=== PATIENT | male | born 1940 | race Caucasian/White ===

== ENCOUNTER 2020-03-16 08:20 | Outpatient (REF) | payer MEDICARE, OTHER, SELFPAY ==
[2020-03-16 12:07] LABS: INTERNATIONAL NORM RATIO 1.8 (0.9-1.1); Prothrombin Time 21.5 SEC (10.8-13.0)
== END 2020-03-16 08:21 | disposition home or self-care (01) ==
LOC: HO.LHD 08:20
PROVIDERS: Visit Provider Nurse Practitioner Family
DX: Z79.01 Long term (current) use of anticoagulants (principal)
CPT/HCPCS: 36415; 85610

== ENCOUNTER 2020-03-30 08:01 | Outpatient (REF) | payer MEDICARE, OTHER, SELFPAY ==
[2020-03-30 11:37] LABS: INTERNATIONAL NORM RATIO 2.4 (0.9-1.1); Prothrombin Time 29.1 SEC (10.8-13.0)
== END 2020-03-30 08:02 | disposition home or self-care (01) ==
LOC: HO.LHD 08:01
PROVIDERS: Visit Provider Nurse Practitioner Family
DX: Z79.01 Long term (current) use of anticoagulants (principal)
CPT/HCPCS: 36415; 85610

== ENCOUNTER 2020-04-12 06:55 | Outpatient (REF) | payer MEDICARE, MEDICAID, SELFPAY ==
[2020-04-12 10:50] LABS: INTERNATIONAL NORM RATIO 2.5 (0.9-1.1); Prothrombin Time 30.3 SEC (10.8-13.0)
== END 2020-04-12 06:56 | disposition home or self-care (01) ==
LOC: HO.LHD 06:55
PROVIDERS: Visit Provider Nurse Practitioner Family
DX: Z13.89 Encounter for screening for other disorder (principal)
CPT/HCPCS: 36415; 85610

== ENCOUNTER 2020-05-03 | Outpatient (REF) | payer MEDICARE, MEDICAID, OTHER, SELFPAY ==
[2020-05-03 10:56] LABS: Prothrombin Time 24.4 SEC (10.8-13.0)
== END 2020-05-03 00:01 | disposition home or self-care (01) ==
LOC: HO.LHD
PROVIDERS: Visit Provider Nurse Practitioner Family
DX: I48.91 Unspecified atrial fibrillation (principal); Z79.01 Long term (current) use of anticoagulants
CPT/HCPCS: 36415; 85610

== ENCOUNTER 2020-05-24 | Outpatient (REF) | payer MEDICARE, MEDICAID, OTHER, SELFPAY ==
[2020-05-24 10:50] LABS: INTERNATIONAL NORM RATIO 2.7 (0.9-1.1); Prothrombin Time 32.2 SEC (10.8-13.0)
== END 2020-05-24 00:01 | disposition home or self-care (01) ==
LOC: HO.LHD
PROVIDERS: Visit Provider Nurse Practitioner Family
DX: Z79.01 Long term (current) use of anticoagulants (principal)
CPT/HCPCS: 36415; 85610

== ENCOUNTER 2020-06-03 13:32 | Outpatient (REF) | payer MEDICARE, OTHER, SELFPAY | END 2020-06-03 13:33 | disposition home or self-care (01) | LOC: HO.HMGCLDS 13:32 | PROVIDERS: PCP Nurse Practitioner Family; Visit Provider Internal Medicine | DX: Z20.828 Contact with and (suspected) exposure to other viral communicable diseases (principal) | CPT/HCPCS: C9803; U0003 ==

== ENCOUNTER 2020-07-01 23:43 | Inpatient (IN) | payer MEDICARE, OTHER, SELFPAY ==
[2020-07-01 23:53] VITALS: BP 95/59; PULSE 74; RESP 18; TEMP 36.7; O2SAT 93; BMI 31.8
[2020-07-02] VITALS (12 sets, daily range): BP systolic 103–154; BP diastolic 53–80; PULSE 38–75; RESP 16–20; TEMP 36.6–36.9; O2SAT 94–99
--- NOTE | 2020-07-02 00:32 | ED_ITS ---
HPI - Syncope General Chief Complaint: Syncope Stated Complaint: SYNCOPE X3 Time Seen by Provider: 07/01/20 23:44 Source: patient Mode of arrival: EMS Limitations: no limitations History of Present Illness HPI narrative: Comes to emergency room via EMS complaining syncopal/near syncopal episode. Patient states that he was awake the whole time, he had an episode of profuse sweating while he was sitting down, then went up to the bathroom, had a bowel movement, got up from the bathroom and started walking and had another similar episode. Patient states that he felt that he was going to pass out, but did not lose consciousness. Patient denies chest pain or shortness of breath during these episodes. The patient's neighbor states that the patient seemed to be unconscious and shaky, but the patient states that he did not pass out. At this time, patient states that he feels much better. MD complaint: felt faint Related Data Home Medications Medication Instructions Recorded Confirmed albuterol sulfate 90 mcg/actuation 2 puff INHALATION Q6H PRN 04/13/20 04/13/20 aerosol inhaler hydrochlorothiazide 25 mg tablet 25 mg PO DAILY 04/13/20 04/13/20 levalbuterol HCl 0.63 mg/3 mL 0.63 mg INHALATION TID 04/13/20 04/13/20 solution for nebulization levalbuterol tartrate 45 1 puff INHALATION Q6H 04/13/20 04/13/20 mcg/actuation aerosol inhaler metoprolol tartrate 50 mg tablet 25 mg PO DAILY tab 04/13/20 04/13/20 warfarin 2.5 mg tablet 2.5 mg PO Q OTHER DAY 04/13/20 04/13/20 Previous Rx's Medication Instructions Recorded warfarin 2 mg tablet 2 mg PO DAILY 30 Days #30 tab 04/12/20 warfarin 2.5 mg tablet 2.5 mg PO Q OTHER DAY 90 Days #45 04/13/20 tab sildenafil 100 mg tablet 100 mg PO DAILY PRN 30 Days #30 tab 04/27/20 fluticasone furoate 100 1 ea INHALATION DAILY #180 ea 05/10/20 mcg-vilanterol 25 mcg/dose inhalation powder trazodone 100 mg tablet 100 mg PO BEDTIME #30 tab 06/10/20 Allergies Allergy/AdvReac Type Severity Reaction Status Date / Time No Known Allergies Allergy Verified 04/13/20 09:39 [No Known Allergies*] Review of Systems Review of Systems: Constitutional : No Weight loss, No Fever, No Chills, No Night Sweats, No Fatigue, No Malaise ENT/Mouth : No Hearing loss, No Ear Pain, No Nasal Congestion, No Sinus Pain, No Hoarseness, No sore throat, No Rhinorrhea, No Swallowing Difficulty Eyes: No Eye Pain, No Swelling, No Redness, No Foreign Body, No Discharge, No Vision Changes Cardiovascular : No Chest Pain, No SOB, No Dyspnea on Exertion, No Orthopnea, No Edema, No Palpitations Respiratory : No Cough, No Sputum, No Wheezing, No Smoke Exposure, No Dyspnea Gastrointestinal : No Nausea, No Vomiting, No Diarrhea, No Constipation, No abdominal Pain, No Hematochezia, No Melena Genitourinary : no irregular bleeding, No Dysuria, No Urinary Frequency, No Hematuria, No Urinary Incontinence, No Urgency, No Flank Pain, No Urinary Flow Changes, No Hesitancy Musculoskeletal : No joint pain, No Myalgias, No Joint Swelling Skin : No Skin Lesions, No rash Neuro : No Weakness, No Numbness, No Paresthesias, No Loss of Consciousness, complaining of near-syncope with profuse sweating, No Headache Psych : No Anxiety/Panic, No Depression, No SI/HI/AH/VH, No Social Issues, Heme/Lymph: No Bruising, No Bleeding,No Lymphadenopathy Endocrine : No Polyuria, No Polydipsia, No Temperature Intolerance PMFSH Past Medical History Medical History (Updated 07/02/20 @ 03:07 by Paulina Lambert MD) Asthma Atrial fibrillation Chronic a-fib COPD (chronic obstructive pulmonary disease) Elevated blood sugar Erectile dysfunction Fatigue Hearing loss High triglycerides HTN (hypertension) Hyperlipidemia Nonischemic cardiomyopathy Stroke Typical atrial flutter Surgical History History of appendectomy History of tonsillectomy Family History Family History Father Unknown family medical history Mother Unknown family medical history Social History Social History (Updated 04/13/20 @ 09:47 by Lori Arambula [facility]) Alcohol intake: current Alcohol intake frequency: a few times a week Smoking Status: Current some day smoker Tobacco Type: Cigarette Smoked in Last 30 Days: No Advance Directives: Yes Advance Directives on File: Yes Advance Directives Date on File: [birth year]/10/1929 Physical Exam Vital Signs: Vital Signs: Last Vital Signs Temp 98.2 F 07/02/20 01:46 Pulse 75 07/02/20 01:46 Resp 16 07/02/20 01:46 BP 107/68 07/02/20 01:46 Pulse Ox 98 07/02/20 01:47 Body Mass Index 31.8 Course Course Course Narrative: I discussed with the patient that his labs are elevated especially the troponin. Patient is completely asymptomatic, has no dizziness, no shortness of breath, no lightheadedness, orthostatics are negative, no chest pain. Patient was to go home. However, the history of his syncopal episode versus near syncopal episode is unclear. Additionally, patient has atrial fi brillation, patient is at high risk. I discussed with the patient that he should be admitted for observation. I also discussed the patient with our hospitalist, who agrees to admit the patient. At this time, patient is stable, heart rate 60, blood pressure 107/63 MDM - Syncope Lab Data Result diagrams: 07/02/20 00:52 07/02/20 00:52 Labs: Lab Results 07/02/20 07/02/20 07/02/20 Range/Units 00:52 00:52 00:52 WBC 7.5 (4.8-10.8) X10*3/uL RBC 4.65 (4.60-5.80) X10*6/uL Hgb 13.9 L (14.0-18.0) g/dl Hct 42.4 (42-52) % MCV 91.2 (80-98) fL MCH 29.9 (27.0-33.0) pg MCHC 32.8 (31.0-36.0) g/dl RDW 13.7 (11.0-16.0) % Plt Count 158 L (160-400) X10*3/uL MPV 12.5 H (9.4-12.4) fL Immature Gran % (Auto) 0.4 (0.0-0.4) % Neut % (Auto) 78.5 H (45-73) % Lymph % (Auto) 10.6 L (20-40) % [place] % (Auto) 9.7 (2-11) % Eos % (Auto) 0.5 (0-4) % Baso % (Auto) 0.3 (0-2) % Lymph # (Auto) 0.8 L (1.2-4.9) X10*3/uL [place] # (Auto) 0.7 (0.1-1.2) X10*3/uL Eos # (Auto) 0.0 (0.0-0.4) X10*3/uL Baso # (Auto) 0.0 (0.0-0.2) X10*3/uL Abs Immat Gran (auto) 0.03 (0.00-0.03) X10*3/uL Absolute Neuts (auto) 5.9 (2.0-8.3) X10*3/uL Absolute Nucleated RBC 0.000 (0.0-0.012) X10*3/uL Nucleated RBC % (auto) 0.0 (0.0-0.2) /100WBC PT 25.3 H D (10.8-13.0) SEC INR 2.1 H (0.9-1.1) Sodium 140 (135-145) mmol/L Potassium 3.7 (3.3-5.1) mmol/l Chloride 103 (96-108) mmol/L Carbon Dioxide 23 (22-29) mmol/L Anion Gap 18 (12-20) BUN 26 H (9-16) mg/dL Creatinine 1.44 H (0.5-1.4) mg/dL Estim Creat Clear Calc 43.5 Estimated GFR 47 Random Glucose 165 H (60-115) mg/dL Calcium 8.5 (8.4-10.2) mg/dL Troponin I High Sens (<3.5-35.0) ng/L B-Natriuretic Peptide (<100) pg/mL 07/02/20 Range/Units 00:52 WBC (4.8-10.8) X10*3/uL RBC (4.60-5.80) X10*6/uL Hgb (14.0-18.0) g/dl Hct (42-52) % MCV (80-98) fL MCH (27.0-33.0) pg MCHC (31.0-36.0) g/dl RDW (11.0-16.0) % Plt Count (160-400) X10*3/uL MPV (9.4-12.4) fL Immature Gran % (Auto) (0.0-0.4) % Neut % (Auto) (45-73) % Lymph % (Auto) (20-40) % [place] % (Auto) (2-11) % Eos % (Auto) (0-4) % Baso % (Auto) (0-2) % Lymph # (Auto) (1.2-4.9) X10*3/uL [place] # (Auto) (0.1-1.2) X10*3/uL Eos # (Auto) (0.0-0.4) X10*3/uL Baso # (Auto) (0.0-0.2) X10*3/uL Abs Immat Gran (auto) (0.00-0.03) X10*3/uL Absolute Neuts (auto) (2.0-8.3) X10*3/uL Absolute Nucleated RBC (0.0-0.012) X10*3/uL Nucleated RBC % (auto) (0.0-0.2) /100WBC PT (10.8-13.0) SEC INR (0.9-1.1) Sodium (135-145) mmol/L Potassium (3.3-5.1) mmol/l Chloride (96-108) mmol/L Carbon Dioxide (22-29) mmol/L Anion Gap (12-20) BUN (9-16) mg/dL Creatinine (0.5-1.4) mg/dL Estim Creat Clear Calc Estimated GFR Random Glucose (60-115) mg/dL Calcium (8.4-10.2) mg/dL Troponin I High Sens 939.2 H (<3.5-35.0) ng/L B-Natriuretic Peptide 209 H (<100) pg/mL ECG Data Attestation: I personally reviewed and interpreted this ECG as follows: (Sinus rhythm, 1st AV degree block, heart rate 74, no ST segment depressions) Discharge Plan Discharge Clinical Impression: Syncopal episodes, Elevated troponin Patient Disposition: Admitted As Inpatient Prescriptions: No Action warfarin 2 mg tablet 2 mg PO DAILY 30 Days Qty: 30 RF: 2 sildenafil 100 mg tablet 100 mg PO DAILY PRN (Reason: sexual activity) 30 Days Qty: 30 RF: 1 fluticasone furoate-vilanterol [Breo Ellipta] 100-25 mcg/dose blister with device 1 ea inhalation DAILY Qty: 180 RF: 5 trazodone 100 mg tablet 100 mg PO BEDTIME Qty: 30 RF: 2 metoprolol tartrate 50 mg tablet 25 mg PO DAILY RF: 0 warfarin 2.5 mg tablet 2.5 mg PO Q OTHER DAY RF: 0 levalbuterol HCl [Xopenex] 0.63 mg/3 mL solution for nebulization 0.63 mg inhalation TID RF: 0 hydrochlorothiazide 25 mg tablet 25 mg PO DAILY RF: 0 levalbuterol tartrate [Xopenex HFA] 45 mcg/actuation HFA aerosol inhaler 1 puff inhalation Q6H RF: 0 albuterol sulfate [ProAir HFA] 90 mcg/actuation HFA aerosol inhaler 2 puff inhalation Q6H PRNRF: 0 warfarin 2.5 mg tablet 2.5 mg PO Q OTHER DAY 90 Days Qty: 45 RF: 2
[2020-07-02 00:58] LABS: MANUAL DIFF FLAG NO
[2020-07-02 01:01] LABS: Basophils Percent Auto 0.3 % (0-2); Eosinophils Percent Auto 0.5 % (0-4); Hematocrit 42.4 % (42-52); Hemoglobin 13.9 g/dl (14.0-18.0); Imm Gran Abs Auto 0.03 X10*3/uL (0.00-0.03); Imm Gran Pct Auto 0.4 % (0.0-0.4); Lymphocytes Absolute Auto 0.8 X10*3/uL (1.2-4.9); Lymphocytes Percent Auto 10.6 % (20-40); Mean Corpuscular HGB Conc 32.8 g/dl (31.0-36.0); Mean Corpuscular Hemoglobin 29.9 pg (27.0-33.0); Mean Corpuscular Volume 91.2 fL (80-98); Mean Platelet Volume 12.5 fL (9.4-12.4); Monocytes Absolute Auto 0.7 X10*3/uL (0.1-1.2); Monocytes Percent Auto 9.7 % (2-11); Neutrophils Absolute Auto 5.9 X10*3/uL (2.0-8.3); Neutrophils Percent Auto 78.5 % (45-73); Platelet Count 158 X10*3/uL (160-400); Red Blood Count 4.65 X10*6/uL (4.60-5.80); Red Cell Distribution Width 13.7 % (11.0-16.0); White Blood Count 7.5 X10*3/uL (4.8-10.8)
[2020-07-02 01:09] LABS: INTERNATIONAL NORM RATIO 2.1 (0.9-1.1); Prothrombin Time 25.3 SEC (10.8-13.0)
[2020-07-02 01:24] LABS: Anion Gap 18 (12-20); Blood Urea Nitrogen 26 mg/dL (9-16); Calcium 8.5 mg/dL (8.4-10.2); Carbon Dioxide 23 mmol/L (22-29); Chloride 103 mmol/L (96-108); Creatinine Clr Calc Pharmacy 43.5; Estimated Glomerular Filt Rate 47; Glucose Random 165 mg/dL (60-115); Potassium 3.7 mmol/l (3.3-5.1); Sodium 140 mmol/L (135-145)
[2020-07-02] MEDS: 0.9 % Sodium Chloride 1,000 ML 999 ML IVCONT (01:33)
[2020-07-02 01:45] LABS: B Type Natriuretic Peptide 209 pg/mL (<100); Troponin-I High Sensitivity 939.2 ng/L (<3.5-35.0)
--- NOTE | 2020-07-02 05:04 | CA_ITS ---
Transthoracic Echocardiogram Patient (Last, First, Middle): Eder Farah, Gender: Male Date of : 1940 Age: 79 Procedure Date: 07/02/2020 Procedure Type: Transthoracic Echocardiogram Location: ER Height: 167.64 cm Weight: 89.36 kg BSA: 1.99 m2 Heart Rate: bpm BP: 111 / 68 mmHg Medical Case Manager: Referring MD: Herman Pruett MD Symptoms: Syncope Study Quality: Fair ECG Rhythm: Atrial flutter Conclusions: - The left ventricular systolic function is severely decreased. The visually estimated ejection fraction is between 10-15%. - Severe biatrial enlargement. - There is mild mitral valve regurgitation. - There is mild to moderate tricuspid valve regurgitation. - Moderate pulmonary hypertension is present. Findings Left Ventricle Normal left ventricular cavity size. There is normal left ventricular wall thickness. The left ventricular systolic function is severely decreased. The visually estimated ejection fraction is between 10-15%. E/E prime ratio is >15, consistent with elevated filling pressures. Evidence suggests grade III (severe) diastolic dysfunction. Right Ventricle Normal right ventricular cavity size. There is mildly decreased right ventricular systolic function. Atria Severe biatrial enlargement. Aortic Valve There is mild calcification of the aortic valve. There is no aortic valve stenosis. There is mild aortic valve regurgitation. Mitral Valve The mitral valve appears normal. There is mild mitral valve regurgitation. There is no mitral valve stenosis. Pulmonic Valve The pulmonic valve was not well visualized. Tricuspid Valve Normal tricuspid valve structure. There is mild to moderate tricuspid valve regurgitation. The right ventricular systolic pressure is 50 mmHg. Moderate pulmonary hypertension is present. Great Vessels The asc aorta is normal in size. Venous The inferior vena cava is mildly dilated and collapses greater than 50% with inspiration. Pericardium/Pleural There is no evidence of pericardial effusion. Prior Study Comparison Changes noted compared to prior study dated: 06/13/2018. LVEF further diminished. Measurements 2D Linear Measurements IVSd: 0.86 0.6-0.9/0.6-1.0 cm LVIDd: 5.27 3.9-5.3/4.2-5.9 cm LVIDd Index: 2.65 2.4-3.2/2.2-3.1 cm/m2 LVIDs: 4.82 2.0-3.6 cm LVPWd: 1.12 0.7-1.1 cm Ao Root: 3.00 2.1-3.5 cm LA Diam: 5.50 2.7-3.8/3.0-4.0 cm LAIDs Index: 2.76 1.5-2.3 cm/m2 LV Mass: 244.10 67-162/88-224 g LV Mass Index: 122.67 43-95/49-115 g/m2 LVOT Diam: 2.20 3.0+(-)1.3 cm 2D Systolic Function EF 4C: 18.60 >55% EF 2C: 9.16 >55% EF BiP: 14.00 >55% Mitral Valve MV Pk E: 1.11 MV Decel Time: 153.00 E'Lateral: 7.93 E'Medial: 4.84 E/E' Med: 22.90 E/E' Lat: 14.00 PHT: 45.00 MVA PHT: 4.89 Decel Toole: 7.26 Aortic Valve AoV Pk Hieu: 1.56 AoV Mn Hieu: 1.12 AoV VTI: 0.40 AoV Pk Grad: 10.00 Aov Mn Grad: 6.00 QUAN Cont.VTI: 1.61 LVOT LVOT Pk Hieu: 0.72 LVOT Mn Hieu: 0.51 LVOT VTI: 0.17 LVOT Pk Grad: 2.00 LVOT Mn Grad: 1.00 LVOT Diam: 2.20 LVOT Area: 3.80 Diastolic Function MV Pk E: 1.11 E'Medial: 4.84 E/E' Med: 22.90 E' Laterial: 7.93 E/E' Lat: 14.00 Tricuspid Valve TR Pk Hieu: 3.24 TR Pk Grad: 42.00 RA Press: 8.00 RVSP: 50.00 Great Vessels Aorta Ao Root-2D: 3.00 2.0-3.7 cm Pulmonary Valve PV Pk Hieu: 0.84 Peak PV Grad: 3.00 Updated in Other Vendor System with Status of Final Benny Castro MD electronically signed on 07/02/2020 1:33:16 PM with status of Final
--- NOTE | 2020-07-02 05:05 | PM.IMHP ---
History of Present Illness Date of Service: 07/02/20 Chief Complaint: Syncope This is a 80-year-old male with past medical history of AFib on Coumadin, COPD, diabetes, HTN, HLD, nonischemic cardiomyopathy, CVA, asthma, who presents to the hospital with complaints of multiple dizzy spells. Patient reports that he was having dinner with his friend, they were saying goodbye and as he was seeing a by to her he started having dizzy spells and he fell backwards, he was very nauseous and diaphoretic. He reports that his friend noted him to have lost consciousness for a couple of seconds although he is not sure if he did. He reports no vomiting, no palpitations, no chest pain. He has not been short of breath or has had any cough. Patient reports a syncopal episode about 5 months ago but reports that this time was worse associated with significant nausea and diaphoresis which was not present in the past. He has a history of COPD but reports a chronic cough and shortness of breath that has not worsened. Patient also reports that he was drinking prior to the episode occurring and slightly excessively as compared to his usual drinking habits He denies having any urinary symptoms, no headache, no change in vision, no UE lower extremity edema. No orthopnea or PND On arrival to the ED patient hemodynamically stable with temp of 98.0?, heart rate of 74, respiratory rate of 18, blood pressure of 95/59, satting 93% on room air. Labs are significant for WBC count of 7.5, hemoglobin of 13.9, platelet count 158, PT of 25.3, INR of 2.1, sodium of 140, potassium 3.7, BUN of 26, creatinine of 1.44 (last creatinine from 01/28 of 1.52) , high sensitivity troponin of 939, and BNP of 209 Patient will be admitted for further evaluation Past medical history: AFib on Coumadin, COPD, hyperlipidemia, hypertension, nonischemic cardiomyopathy, CVA, asthma Past surgical history: Appendectomy, tonsillectomy Family history: Was adopted Social history: Comes from home, smokes about 1-2 cigarettes a day, reports social drinking, denies any illicit drugs Review of Systems Review of Systems: Yes all other systems are reviewed and are negative [facility] Medical History (Updated 07/02/20 @ 05:13 by Herman Pruett MD) Asthma Atrial fibrillation Chronic a-fib COPD (chronic obstructive pulmonary disease) Elevated blood sugar Erectile dysfunction Fatigue Hearing loss High triglycerides HTN (hypertension) Hyperlipidemia Nonischemic cardiomyopathy Stroke Typical atrial flutter Family History (Reviewed 04/13/20 @ 09:40 by Dagoberto Childs, [facility]) Father Unknown family medical history Mother Unknown family medical history Surgical History History of appendectomy History of tonsillectomy Social History (Updated 04/13/20 @ 09:47 by Lori Arambula [facility]) Alcohol intake: current Alcohol intake frequency: a few times a week Smoking Status: Current some day smoker Tobacco Type: Cigarette Smoked in Last 30 Days: No Advance Directives: Yes Advance Directives on File: Yes Advance Directives Date on File: 05/10/1929 Meds Allergies Allergy/AdvReac Type Severity Reaction Status Date / Time No Known Allergies Allergy Verified 04/13/20 09:39 [No Known Allergies*] Home Medications Medication Instructions Recorded Confirmed Type albuterol sulfate 90 mcg/actuation 2 puff INHALATION Q6H PRN 04/13/20 07/02/20 History aerosol inhaler levalbuterol tartrate 45 1 puff INHALATION Q6H 04/13/20 04/13/20 History mcg/actuation aerosol inhaler metoprolol tartrate 50 mg tablet 50 mg PO DAILY tab 04/13/20 07/02/20 History atorvastatin 40 mg PO DAILY 07/02/20 07/02/20 History furosemide 20 mg PO DIRECTED 07/02/20 07/02/20 History Physical Exam Vital Signs and Narrative: Vital Signs: Last Vital Signs Temp 98.2 F 07/02/20 01:46 Pulse 75 07/02/20 01:46 Resp 16 07/02/20 01:46 BP 107/68 07/02/20 01:46 Pulse Ox 98 07/02/20 01:47 Body Mass Index 31.8 Const: General: cooperative and no acute distress Orientation/consciousness: patient oriented x3 HENMT: Other: Hard of hearing Eyes: General: appearance normal, both eyes and all related structures Pupils: Equal, round and reactive pupils present Resp: Effort & Inspection: normal respiratory effort and able to speak in complete sentences Cardio: Rate: regular rate Rhythm: regular rhythm GI: Palpation (GI): Soft to palpation Auscultation: normal bowel sounds Skin: General skin exam: no rashes or lesions noted Neuro: General: patient oriented x3 Cranial nerves: Yes Equal, round and reactive pupils present Cognition (Neuro): normal cognition Extrem: General: Yes normal to inspection and Yes no pedal edema Results Labs CBC and Chem 7: 07/02/20 00:52 07/02/20 00:52 Labs: Laboratory Results - last 24 hr 07/02/20 07/02/20 07/02/20 00:52 00:52 00:52 MCV 91.2 MCH 29.9 MCHC 32.8 RDW 13.7 Plt Count 158 L MPV 12.5 H Immature Gran % (Auto) 0.4 Neut % (Auto) 78.5 H Lymph % (Auto) 10.6 L [place] % (Auto) 9.7 Eos % (Auto) 0.5 Baso % (Auto) 0.3 Lymph # (Auto) 0.8 L [place] # (Auto) 0.7 Eos # (Auto) 0.0 Baso # (Auto) 0.0 Abs Immat Gran (auto) 0.03 Absolute Neuts (auto) 5.9 Absolute Nucleated RBC 0.000 Nucleated RBC % (auto) 0.0 PT 25.3 H D INR 2.1 H Anion Gap 18 Estim Creat Clear Calc 43.5 Estimated GFR 47 Random Glucose 165 H Calcium 8.5 Troponin I High Sens B-Natriuretic Peptide 07/02/20 00:52 MCV MCH MCHC RDW Plt Count MPV Immature Gran % (Auto) Neut % (Auto) Lymph % (Auto) [place] % (Auto) Eos % (Auto) Baso % (Auto) Lymph # (Auto) [place] # (Auto) Eos # (Auto) Baso # (Auto) Abs Immat Gran (auto) Absolute Neuts (auto) Absolute Nucleated RBC Nucleated RBC % (auto) PT INR Anion Gap Estim Creat Clear Calc Estimated GFR Random Glucose Calcium Troponin I High Sens 939.2 H B-Natriuretic Peptide 209 H Assessment and Plan (1) Syncopal episodes: Status: Acute (2) Elevated troponin: Status: Acute (3) HTN (hypertension): Status: Acute (4) Chronic a-fib: Status: Inactive This is a 80-year-old male with history of AFib on Coumadin who presents to the hospital with complaints of dizzy spell as well as possible syncopal episode. # syncope - possibly cardiogenic versus vasovagal vs neurogenic less likely versus secondary to alcohol use - patient has a history of AFib, reports diaphoresis and nausea prior to syncope - he is not sure if he syncopized although reports that his friend who was visiting him did report an noticed him to be unconscious for few seconds -patient was drinking this evening a little more than usual - his orthostatic vitals have been negative in the ED - no hypoxia, and by the time he arrived to the ED was in normal sinus with no tachycardia, and no AFib Plan: - will admit to telemetry - obtain echocardiogram - consult cardiolog # elevated troponin - denies any chest pain - has no evidence of ACS on EKG Plan: - will order a 2nd troponin - cardiology consulted - echocardiogram - already on Coumadin with therapeutic INR - continue Coumadin # hypertension - stable - continue home meds # atrial fibrillation - continue metoprolol and Coumadin - therapeutic INR of 2.1 - PT INR daily # COPD - no evidence of exacerbation DVT prophylaxis: Coumadin
[2020-07-02 06:46] LABS: INTERNATIONAL NORM RATIO 2.1 (0.9-1.1); Prothrombin Time 25.4 SEC (10.8-13.0)
[2020-07-02 06:53] LABS: COVID-19 Test Negative (Negative); IDNOW Serial# 9DD0AD1C
[2020-07-02 07:31] LABS: Troponin-I High Sensitivity 7428.7 ng/L (<3.5-35.0)
[2020-07-02] MEDS: 0.9 % Sodium Chloride Flush 3 ML SYRINGE IVFLUSH ×3 (07:56→20:24)
--- NOTE | 2020-07-02 07:56 | PC.NURSE ---
report taken from Lisa ART. pt resting on stretcher. breakfast provided. pt repeat trop increased. pt denies chest pain or further dizziness. Laura RN sent text to hospitalist for inform of levels. dr Santiago at bedside and spoke with pt. repeat EKG done at bedside. pt informed of above. pt asking RN to go home. explained to pt the importance of staying in hospital and waiting to see department store salesperson. pt agreeable. waiting for room for admission.
--- NOTE | 2020-07-02 08:00 | ECG_ITS ---
Test Reason : GENERAL MEDICAL Blood Pressure : / mmHG Vent. Rate : 055 BPM Atrial Rate : 234 BPM P-R Int : 000 ms QRS Dur : 098 ms QT Int : 446 ms P-R-T Axes : 000 -53 -44 degrees QTc Int : 426 ms Atrial flutter with slow ventricular rate Low voltage QRS Septal infarct (cited on or before 14-JAN-2020) Inferior infarct , age undetermined Abnormal ECG When compared with ECG of 02-JUL-2020 00:05, No significant changes seen Referred By: Nacho Santiago Electronically Signed By:MELVIN BURGESS
[2020-07-02] MEDS: Aspirin 81 MG TAB.CHEW 324 MG PO (08:06)
[2020-07-02] MEDS: Warfarin Sodium 2 MG TABLET PO (09:12)
[2020-07-02] MEDS: Metoprolol Tartrate 50 MG TABLET PO (09:12)
[2020-07-02] MEDS: Atorvastatin Calcium 80 MG TABLET PO (09:12)
--- NOTE | 2020-07-02 09:16 | PC.NURSE ---
CALL TO [facility] TO GIVE REPORT. RN TO CALL BACK TO RECIEVE REPORT.
--- NOTE | 2020-07-02 11:29 | P.CONCA_ITS ---
History of Present Illness History of Present Illness Date of Service: 07/02/20 Consult reason: myocardial infarction Chief complaint: PRE-SYNCOPE EPISODE Narrative: This is a cardiology consultation regarding elevated troponins. Patient follows up with Dr. Mccullough in our office. He carries a history of nonischemic cardiomyopathy, atrial fibrillation. He apparently had a dizzy episode when he almost fell backwards. Then also felt nauseous and diaphoretic. H&P states no chest tightness, but he states that he did feel an episode of chest tightness as well at that time. Then he present to the hospital and found to have elevated troponins. Today however, he states that he feels well and does not have any complaints at all. Review of Systems Review of Systems: Yes all other systems are reviewed and are negative Cardiovascular: Cardiovascular: Reports as per HPI, Reports no additional cardiovascular complaints, Denies acrocyanosis, Denies cool extremities, Denies painful fingertips, Reports chest pain, Denies chest pain at rest, Denies diaphoresis, Denies syncope, Denies irregular heart rhythm, Denies claudication, Denies leg edema, Reports lightheadedness, Denies palpitations and Denies dyspnea Respiratory: Respiratory: Denies dyspnea Neurologic: Denies syncope Endocrine: Endocrine: Denies palpitations [facility] Past Medical History Medical History (Updated 07/02/20 @ 11:38 by Benny Castro MD) Asthma Atherosclerotic cardiovascular disease Atrial fibrillation Chronic a-fib COPD (chronic obstructive pulmonary disease) Elevated blood sugar Erectile dysfunction Fatigue Hearing loss High triglycerides HTN (hypertension) Hyperlipidemia Nonischemic cardiomyopathy Stroke Typical atrial flutter Family History Family History Father Unknown family medical history Mother Unknown family medical history Surgical History Surgical History History of appendectomy History of tonsillectomy Social History Social History (Updated 04/13/20 @ 09:47 by Lori Arambula [facility]) Housing: Assisted Living Facility Do you presently have visiting nurse or other home services: No Alcohol intake: current Alcohol intake frequency: a few times a week Smoking Status: Former smoker Tobacco Type: Cigarette Smoked in Last 30 Days: Yes Patient Interested in Nicotine Replacement: Yes Patient Given Instructions on How to Stop Smoking: Yes Date Education Initiated: 07/02/20 Second Hand Smoke Exposure: No Use of substances other than those prescribed or required for medical reasons: No Currently Displaying Signs/Symptoms of Drug Intoxication Withdrawal: No Have you been hit, kicked, punched, or otherwise hurt by someone within the past year? If so, by whom?: No Do you feel safe in your current relationship?: No Is there a partner from a previous relationship who is making you feel unsafe now?: No Are you made to feel afraid or neglected: No Advance Directives: Yes Advance Directives on File: Yes Advance Directives Date on File: 05/10/1929 Do you have thoughts of harming others: None Do you have a plan to hurt others: No Plan Recently lost weight without trying: No Meds Allergies Allergy/AdvReac Type Severity Reaction Status Date / Time No Known Allergies Allergy Verified 04/13/20 09:39 [No Known Allergies*] Home Medications Medication Instructions Recorded Confirmed Type albuterol sulfate 90 mcg/actuation 2 puff INHALATION Q6H PRN 04/13/20 07/02/20 History aerosol inhaler metoprolol tartrate 50 mg tablet 50 mg PO DAILY tab 04/13/20 07/02/20 History atorvastatin 40 mg PO DAILY 07/02/20 07/02/20 History furosemide 20 mg PO Q2D 07/02/20 07/02/20 History furosemide 40 mg PO Q2D 07/02/20 07/02/20 History lisinopril 5 mg PO DAILY 07/02/20 07/02/20 History trazodone 100 mg PO BEDTIME PRN 07/02/20 07/02/20 History warfarin 2 mg PO Q2D 07/02/20 07/02/20 History warfarin 2.5 mg PO Q2D 07/02/20 07/02/20 History Physical Exam Vital Signs: Vital Signs: Last Vital Signs Temp 97.8 F 07/02/20 11:04 Pulse 56 07/02/20 11:04 Resp 20 07/02/20 11:04 BP 154/75 H 07/02/20 11:04 Pulse Ox 96 07/02/20 11:04 Body Mass Index 31.8 Const: General: cooperative, comfortable and no acute distress Orientation/consciousness: patient oriented x3 HENMT: Other: Unremarkable Neck: Neck: Yes normal visual inspection Chest: Chest palpation & inspection: normal inspection of the chest Resp: Auscultation: clear to auscultation bilaterally, no crackles and no wheezes Cardio: Jugular venous distension: no JVD Palpation: normal PMI Heart sounds: S1 normal heart sound present, S2 normal heart sound present, no gallops, no murmurs and no rubs GI: Palpation (GI): Soft to palpation Back/Spine/Pelvis: Other: unremarkable Skin: General skin exam: no rashes or lesions noted Neuro: General: patient oriented x3 Extrem: General: Yes no clubbing, cyanosis or edema Psych: Mental Status: mental status grossly normal Results Labs and Meds Result diagrams: 07/02/20 00:52 07/02/20 00:52 Lab results: Laboratory Results - last 24 hr 07/02/20 07/02/20 07/02/20 00:52 00:52 00:52 WBC 7.5 RBC 4.65 Hgb 13.9 L Hct 42.4 MCV 91.2 MCH 29.9 MCHC 32.8 RDW 13.7 Plt Count 158 L MPV 12.5 H Immature Gran % (Auto) 0.4 Neut % (Auto) 78.5 H Lymph % (Auto) 10.6 L [place] % (Auto) 9.7 Eos % (Auto) 0.5 Baso % (Auto) 0.3 Lymph # (Auto) 0.8 L [place] # (Auto) 0.7 Eos # (Auto) 0.0 Baso # (Auto) 0.0 Abs Immat Gran (auto) 0.03 Absolute Neuts (auto) 5.9 Absolute Nucleated RBC 0.000 Nucleated RBC % (auto) 0.0 PT 25.3 H D INR 2.1 H APTT Sodium 140 Potassium 3.7 Chloride 103 Carbon Dioxide 23 Anion Gap 18 BUN 26 H Creatinine 1.44 H Estim Creat Clear Calc 43.5 Estimated GFR 47 Random Glucose 165 H Calcium 8.5 Troponin I High Sens B-Natriuretic Peptide COVID-19 ([facility]) COVID-19 Clin Com 07/02/20 07/02/20 07/02/20 00:52 06:15 06:15 WBC RBC Hgb Hct MCV MCH MCHC RDW Plt Count MPV Immature Gran % (Auto) Neut % (Auto) Lymph % (Auto) [place] % (Auto) Eos % (Auto) Baso % (Auto) Lymph # (Auto) [place] # (Auto) Eos # (Auto) Baso # (Auto) Abs Immat Gran (auto) Absolute Neuts (auto) Absolute Nucleated RBC Nucleated RBC % (auto) PT 25.4 H INR 2.1 H APTT 37.0 Sodium Potassium Chloride Carbon Dioxide Anion Gap BUN Creatinine Estim Creat Clear Calc Estimated GFR Random Glucose Calcium Troponin I High Sens 939.2 H B-Natriuretic Peptide 209 H COVID-19 ([facility]) COVID-19 Clin Com 07/02/20 07/02/20 06:15 06:29 WBC RBC Hgb Hct MCV MCH MCHC RDW Plt Count MPV Immature Gran % (Auto) Neut % (Auto) Lymph % (Auto) [place] % (Auto) Eos % (Auto) Baso % (Auto) Lymph # (Auto) [place] # (Auto) Eos # (Auto) Baso # (Auto) Abs Immat Gran (auto) Absolute Neuts (auto) Absolute Nucleated RBC Nucleated RBC % (auto) PT INR APTT Sodium Potassium Chloride Carbon Dioxide Anion Gap BUN Creatinine Estim Creat Clear Calc Estimated GFR Random Glucose Calcium Troponin I High Sens 7428.7 H D B-Natriuretic Peptide COVID-19 ([facility]) Negative COVID-19 Clin Com See Note ECG Attestation: I personally reviewed and interpreted this ECG as follows: Interpretation: EKG shows atrial flutter with a rate of 74/Min; left anterior fascicular block; cannot exclude old anterior infarct or inferior infarct Assessment and Plan (1) NSTEMI (non-ST elevated myocardial infarction): Status: Acute (2) Atherosclerotic cardiovascular disease: Status: Acute (3) Nonischemic cardiomyopathy: Status: Inactive EKG shows atrial flutter with controlled rate. Last echocardiogram from 2019 with LVEF 20-25%. Repeat echocardiogram getting done today. Last cardiac catheterization for 2019 shows only mild luminal irregularities in the left main; proximal LAD 50% stenosis but otherwise unremarkable. First set of troponin 939; repeat is 7428. Will discuss with his primary vacuum caster .
--- NOTE | 2020-07-02 13:02 | MHC.CM.PN ---
spoke with pt who confirms that he is active with [facility] who provides homemkaer servceis for pt he will need a ride home when he is dcd
[2020-07-02] MEDS: traZODone HCL 100 MG TABLET PO (20:24)
[2020-07-03] VITALS (11 sets, daily range): BP systolic 106–180; BP diastolic 66–79; PULSE 37–77; RESP 14–20; TEMP 36.1–36.7; O2SAT 93–98
--- NOTE | 2020-07-03 | ECG_ITS ---
Test Reason : LOW HR Blood Pressure : / mmHG Vent. Rate : 054 BPM Atrial Rate : 227 BPM P-R Int : 000 ms QRS Dur : 098 ms QT Int : 508 ms P-R-T Axes : 242 -50 -19 degrees QTc Int : 481 ms Atrial flutter with variable A-V block Low voltage QRS Left anterior fascicular block Cannot rule out Anterior infarct , age undetermined Abnormal ECG No significant changes when compared with the previous EKG of jul 02, 2020 Referred By: Herman Pruett Electronically Signed By:MELVIN BURGESS
--- NOTE | 2020-07-03 00:13 | P.EN_ITS ---
Event Note Date of Service: 07/03/20 Event Note: Pt bradycardi w HR in the 30s while sleeping. Asymptomatic. will o btain EKG, Pt on lopressor 50 mg daily, will reduce to 25 mg and hold AM dose.
--- NOTE | 2020-07-03 00:30 | PC.NURSE ---
Pt HR dropping into 30s frequently then back into 50s/60s sustaining. Had a 3.4 seconds pause on monitor. Pt assessed, asymptomatic. Notified Dr. Pruett. EKG ordered.
[2020-07-03 06:32] LABS: Hemoglobin 13.6 g/dl (14.0-18.0); Imm Gran Abs Auto 0.02 X10*3/uL (0.00-0.03); Imm Gran Pct Auto 0.3 % (0.0-0.4); PLT ABN DIST 1; Platelet Count 141 X10*3/uL (160-400); SCAN SMEAR FLAG 1
[2020-07-03 06:34] LABS: Basophils Percent Auto 0.3 % (0-2); Eosinophils Absolute Auto 0.1 X10*3/uL (0.0-0.4); Eosinophils Percent Auto 1.9 % (0-4); Hematocrit 42.4 % (42-52); Lymphocytes Absolute Auto 1.1 X10*3/uL (1.2-4.9); Lymphocytes Percent Auto 14.8 % (20-40); Mean Corpuscular HGB Conc 32.1 g/dl (31.0-36.0); Mean Corpuscular Hemoglobin 29.8 pg (27.0-33.0); Mean Platelet Volume 13.5 fL (9.4-12.4); Monocytes Absolute Auto 0.7 X10*3/uL (0.1-1.2); Monocytes Percent Auto 9.6 % (2-11); Neutrophils Absolute Auto 5.4 X10*3/uL (2.0-8.3); Neutrophils Percent Auto 73.1 % (45-73); Red Blood Count 4.56 X10*6/uL (4.60-5.80); Red Cell Distribution Width 14.2 % (11.0-16.0); White Blood Count 7.4 X10*3/uL (4.8-10.8)
[2020-07-03 06:37] LABS: MANUAL DIFF FLAG NO
[2020-07-03 07:02] LABS: Anion Gap 12 (12-20); Blood Urea Nitrogen 23 mg/dL (9-16); Calcium 8.1 mg/dL (8.4-10.2); Carbon Dioxide 24 mmol/L (22-29); Chloride 108 mmol/L (96-108); Creatinine Clr Calc Pharmacy 63.9; Estimated Glomerular Filt Rate > 60; Glucose Fasting 121 mg/dL (60-99); Potassium 4.4 mmol/l (3.3-5.1); Sodium 140 mmol/L (135-145); Troponin-I High Sensitivity 2746.1 ng/L (<3.5-35.0)
[2020-07-03] MEDS: 0.9 % Sodium Chloride Flush 3 ML SYRINGE IVFLUSH ×2 (08:12→17:18)
[2020-07-03 09:20] LABS: INTERNATIONAL NORM RATIO 2.3 (0.9-1.1)
[2020-07-03] MEDS: Atorvastatin Calcium 80 MG TABLET PO (09:50)
[2020-07-03] MEDS: Fluticasone/Vilanterol 100/25 BLST.W.DEV 1 PUFF INHALE (09:50)
--- NOTE | 2020-07-03 11:16 | PM.DS ---
DS: Providers Provider Date of Service: 07/03/20 Date of admission: 07/02/20 05:04 Primary care physician: Unknown Physician Consults: 07/02/20 05:04 Consult to Cardiology Routine Consulting Provider: Benny Castro Reason for consultation: elevated trop, with pre-syncopal episodes ( possible syncope) Has provider been notified: No DS: Diagnosis Discharge Diagnosis (1) NSTEMI (non-ST elevated myocardial infarction): Status: Acute (2) Atherosclerotic cardiovascular disease: Status: Acute (3) Nonischemic cardiomyopathy: Status: Inactive DS: Medications Discharge Medications Home Medications: Home Medications Medication Instructions Recorded Confirmed albuterol sulfate 90 mcg/actuation 2 puff INHALATION Q6H PRN 04/13/20 07/02/20 aerosol inhaler metoprolol tartrate 50 mg tablet 50 mg PO DAILY tab 04/13/20 07/02/20 atorvastatin 40 mg PO DAILY 07/02/20 07/02/20 furosemide 20 mg PO Q2D 07/02/20 07/02/20 furosemide 40 mg PO Q2D 07/02/20 07/02/20 lisinopril 5 mg PO DAILY 07/02/20 07/02/20 trazodone 100 mg PO BEDTIME PRN 07/02/20 07/02/20 warfarin 2 mg PO Q2D 07/02/20 07/02/20 warfarin 2.5 mg PO Q2D 07/02/20 07/02/20 Previous Rx's Medication Instructions Recorded fluticasone furoate 100 1 ea INHALATION DAILY #180 ea 05/10/20 mcg-vilanterol 25 mcg/dose inhalation powder DS: Summary Hospital Course Hospital Course: Patient was admitted for syncope. Found to have elevated troponin of about 7000. Denies any chest pain or shortness of breath. Echo showed an EF of 10-20%. Previous cardiac catheterization from 2019 showed nonobstructive coronary disease. Likely nonischemic cardiomyopathy. Telemetry showed a flutter, had 3.5 second pause overnight. Cause of syncope likely asystole versus VT. Recommendations from Cardiology were to transfer to [facility] for electrophysiology evaluation and possible AICD implantation. Patient, however, is refusing. He is aware of the risks including . He has decided to leave against medical advice. Time Spent with Patient Time attestation: Total time spent providing and/or coordinating discharge services: Discharge coordination time: Greater than 30 minutes Physical Exam Vital Signs: Vital Signs: Last Vital Signs Temp 98.0 F 07/03/20 07:26 Pulse 53 07/03/20 09:47 Resp 18 07/03/20 07:26 BP 106/66 07/03/20 07:26 Pulse Ox 98 07/03/20 07:26 Body Mass Index 31.8 General: AO X 3, no acute distress Resp: CTA bilateral CVS: S1,S2,RRR GI: soft, non tender, non distended Neuro: motor grossly intact Psych: appropriate affect DS: Data Data Completed and Pending Labs on day of discharge: Laboratory Tests 07/02/20 07/02/20 07/02/20 00:52 00:52 00:52 WBC 7.5 RBC 4.65 Hgb 13.9 L Hct 42.4 MCV 91.2 MCH 29.9 MCHC 32.8 RDW 13.7 Plt Count 158 L MPV 12.5 H Immature Gran % (Auto) 0.4 Neut % (Auto) 78.5 H Lymph % (Auto) 10.6 L [place] % (Auto) 9.7 Eos % (Auto) 0.5 Baso % (Auto) 0.3 Lymph # (Auto) 0.8 L [place] # (Auto) 0.7 Eos # (Auto) 0.0 Baso # (Auto) 0.0 Abs Immat Gran (auto) 0.03 Absolute Neuts (auto) 5.9 Absolute Nucleated RBC 0.000 Nucleated RBC % (auto) 0.0 PT 25.3 H D INR 2.1 H APTT Sodium 140 Potassium 3.7 Chloride 103 Carbon Dioxide 23 Anion Gap 18 BUN 26 H Creatinine 1.44 H Estim Creat Clear Calc 43.5 Estimated GFR 47 Random Glucose 165 H Fasting Glucose Calcium 8.5 Troponin I High Sens B-Natriuretic Peptide COVID-19 ([facility]) COVID-19 Clin Com 07/02/20 07/02/20 07/02/20 00:52 06:15 06:15 WBC RBC Hgb Hct MCV MCH MCHC RDW Plt Count MPV Immature Gran % (Auto) Neut % (Auto) Lymph % (Auto) [place] % (Auto) Eos % (Auto) Baso % (Auto) Lymph # (Auto) [place] # (Auto) Eos # (Auto) Baso # (Auto) Abs Immat Gran (auto) Absolute Neuts (auto) Absolute Nucleated RBC Nucleated RBC % (auto) PT 25.4 H INR 2.1 H APTT 37.0 Sodium Potassium Chloride Carbon Dioxide Anion Gap BUN Creatinine Estim Creat Clear Calc Estimated GFR Random Glucose Fasting Glucose Calcium Troponin I High Sens 939.2 H B-Natriuretic Peptide 209 H COVID-19 ([facility]) COVID-19 Clin Com 07/02/20 07/02/20 07/03/20 06:15 06:29 05:10 WBC Cancelled RBC Cancelled Hgb Cancelled Hct Cancelled MCV Cancelled MCH Cancelled MCHC Cancelled RDW Cancelled Plt Count Cancelled MPV Cancelled Immature Gran % (Auto) Cancelled Neut % (Auto) Cancelled Lymph % (Auto) Cancelled [place] % (Auto) Cancelled Eos % (Auto) Cancelled Baso % (Auto) Cancelled Lymph # (Auto) Cancelled [place] # (Auto) Cancelled Eos # (Auto) Cancelled Baso # (Auto) Cancelled Abs Immat Gran (auto) Cancelled Absolute Neuts (auto) Cancelled Absolute Nucleated RBC Cancelled Nucleated RBC % (auto) Cancelled PT INR APTT Sodium Potassium Chloride Carbon Dioxide Anion Gap BUN Creatinine Estim Creat Clear Calc Estimated GFR Random Glucose Fasting Glucose Calcium Troponin I High Sens 7428.7 H D B-Natriuretic Peptide COVID-19 ([facility]) Negative COVID-19 Clin Com See Note 07/03/20 07/03/20 07/03/20 05:10 05:10 05:10 WBC 7.4 RBC 4.56 L Hgb 13.6 L Hct 42.4 MCV 93.0 MCH 29.8 MCHC 32.1 RDW 14.2 Plt Count 141 L MPV 13.5 H Immature Gran % (Auto) 0.3 Neut % (Auto) 73.1 H Lymph % (Auto) 14.8 L [place] % (Auto) 9.6 Eos % (Auto) 1.9 Baso % (Auto) 0.3 Lymph # (Auto) 1.1 L [place] # (Auto) 0.7 Eos # (Auto) 0.1 Baso # (Auto) 0.0 Abs Immat Gran (auto) 0.02 Absolute Neuts (auto) 5.4 Absolute Nucleated RBC 0.000 Nucleated RBC % (auto) 0.0 PT INR APTT Sodium 140 Potassium 4.4 Chloride 108 Carbon Dioxide 24 Anion Gap 12 BUN 23 H Creatinine 0.98 Estim Creat Clear Calc 63.9 Estimated GFR > 60 Random Glucose TNP Fasting Glucose 121 H Calcium 8.1 L Troponin I High Sens 2746.1 H D B-Natriuretic Peptide COVID-19 ([facility]) COVID-19 [employer] Com 07/03/20 08:53 WBC RBC Hgb Hct MCV MCH MCHC RDW Plt Count MPV Immature Gran % (Auto) Neut % (Auto) Lymph % (Auto) [place] % (Auto) Eos % (Auto) Baso % (Auto) Lymph # (Auto) [place] # (Auto) Eos # (Auto) Baso # (Auto) Abs Immat Gran (auto) Absolute Neuts (auto) Absolute Nucleated RBC Nucleated RBC % (auto) PT 28.0 H INR 2.3 H APTT Sodium Potassium Chloride Carbon Dioxide Anion Gap BUN Creatinine Estim Creat Clear Calc Estimated GFR Random Glucose Fasting Glucose Calcium Troponin I High Sens B-Natriuretic Peptide COVID-19 ([facility]) COVID-19 Clin Com Discharge Plan Discharge Patient Disposition: Left Against Medical Advice Referrals: Physician,Unknown [Primary Care Provider] - Discharge Medications: Continued fluticasone furoate-vilanterol [Breo Ellipta] 100-25 mcg/dose blister with device 1 ea inhalation DAILY Qty: 180 RF: 5 atorvastatin 40 mg tablet 40 mg PO DAILY RF: 0 furosemide 20 mg tablet 20 mg PO Q2D RF: 0 furosemide 20 mg tablet 40 mg PO Q2D RF: 0 warfarin 2.5 mg tablet 2.5 mg PO Q2D RF: 0 trazodone 100 mg tablet 100 mg PO BEDTIME PRN (Reason: Insomnia) RF: 0 warfarin 2 mg tablet 2 mg PO Q2D RF: 0 lisinopril 5 mg tablet 5 mg PO DAILY RF: 0 albuterol sulfate [ProAir HFA] 90 mcg/actuation HFA aerosol inhaler 2 puff inhalation Q6H PRN (Reason: Shortness Of Breath) RF: 0 Changed metoprolol tartrate 50 mg tablet 25 mg PO DAILY Qty: 0 RF: 0 Discharge Orders: Discharge Order (Routine); Ordered 07/03/20 Ordered By: Mayur Jerry Diet: advance to usual diet Activity on Discharge: As tolerated Care Plan Goals: avoid sudden cardiac Health Concerns: cardiomyopathy and likely arrythmias Plan of Treatment: you were recommended to transfer to [facility] directly for EP evaluation as you are at risk for sudden cardiac , please follow up with cardiology as soon as possible, decrease toprol to 25mg daily
--- NOTE | 2020-07-03 11:23 | P.PNCA_ITS ---
Subjective Subjective Date of Service: 07/03/20 Interval history: He states that he feels okay. No specific complaints at this time. Review of Systems Review of Systems Yes all other systems are reviewed and are negative Cardiovascular: Reports as per HPI, Reports no additional cardiovascular complaints, Denies acrocyanosis, Denies cool extremities, Denies painful fingertips, Reports chest pain, Denies chest pain at rest, Denies diaphoresis, Denies syncope, Denies irregular heart rhythm, Denies claudication, Denies leg edema, Reports lightheadedness, Denies palpitations and Denies dyspnea Respiratory: Denies dyspnea Denies syncope Endocrine: Denies palpitations Physical Exam Vital Signs: Last Vital Signs Temp 98.0 F 07/03/20 07:26 Pulse 53 07/03/20 09:47 Resp 18 07/03/20 07:26 BP 106/66 07/03/20 07:26 Pulse Ox 98 07/03/20 07:26 Body Mass Index 31.8 Const General: cooperative, comfortable and no acute distress Orientation/consciousness: patient oriented x3 HENMT Other: Unremarkable Neck Neck: Yes normal visual inspection Chest Chest palpation & inspection: normal inspection of the chest Resp Auscultation: clear to auscultation bilaterally, no crackles and no wheezes Cardio Jugular venous distension: no JVD Palpation: normal PMI Heart sounds: S1 normal heart sound present, S2 normal heart sound present, no gallops, no murmurs and no rubs GI Palpation (GI): Soft to palpation Back/Spine/Pelvis Other: unremarkable Skin General skin exam: no rashes or lesions noted Neuro General: patient oriented x3 Extrem General: Yes no clubbing, cyanosis or edema Psych Mental Status: mental status grossly normal Results Labs and Meds Result diagrams: 07/03/20 05:10 07/03/20 05:10 Lab results: Laboratory Results - last 24 hr 07/03/20 07/03/20 07/03/20 05:10 05:10 05:10 WBC Cancelled 7.4 RBC Cancelled 4.56 L Hgb Cancelled 13.6 L Hct Cancelled 42.4 MCV Cancelled 93.0 MCH Cancelled 29.8 MCHC Cancelled 32.1 RDW Cancelled 14.2 Plt Count Cancelled 141 L MPV Cancelled 13.5 H Immature Gran % (Auto) Cancelled 0.3 Neut % (Auto) Cancelled 73.1 H Lymph % (Auto) Cancelled 14.8 L [place] % (Auto) Cancelled 9.6 Eos % (Auto) Cancelled 1.9 Baso % (Auto) Cancelled 0.3 Lymph # (Auto) Cancelled 1.1 L [place] # (Auto) Cancelled 0.7 Eos # (Auto) Cancelled 0.1 Baso # (Auto) Cancelled 0.0 Abs Immat Gran (auto) Cancelled 0.02 Absolute Neuts (auto) Cancelled 5.4 Absolute Nucleated RBC Cancelled 0.000 Nucleated RBC % (auto) Cancelled 0.0 PT INR Sodium 140 Potassium 4.4 Chloride 108 Carbon Dioxide 24 Anion Gap 12 BUN 23 H Creatinine 0.98 Estim Creat Clear Calc 63.9 Estimated GFR > 60 Random Glucose TNP Fasting Glucose 121 H Calcium 8.1 L Troponin I High Sens 07/03/20 07/03/20 05:10 08:53 WBC RBC Hgb Hct MCV MCH MCHC RDW Plt Count MPV Immature Gran % (Auto) Neut % (Auto) Lymph % (Auto) [place] % (Auto) Eos % (Auto) Baso % (Auto) Lymph # (Auto) [place] # (Auto) Eos # (Auto) Baso # (Auto) Abs Immat Gran (auto) Absolute Neuts (auto) Absolute Nucleated RBC Nucleated RBC % (auto) PT 28.0 H INR 2.3 H Sodium Potassium Chloride Carbon Dioxide Anion Gap BUN Creatinine Estim Creat Clear Calc Estimated GFR Random Glucose Fasting Glucose Calcium Troponin I High Sens 2746.1 H D Progress Note: A&P Assessment and plan (1) NSTEMI (non-ST elevated myocardial infarction): Status: Acute (2) Atherosclerotic cardiovascular disease: Status: Acute (3) Nonischemic cardiomyopathy: Status: Inactive Assessment and Plan: Echocardiogram shows severely impaired LVEF at 10-15%. This is lower than prior echocardiogram. Holter still shows atrial flutter with controlled rate. There was some slight nocturnal bradycardia but nothing profound. Cardiac catheterization from 2008 did not show any significant disease. His rise and fall in troponins does suggest something acute but not clear as to what happened. Possible arrhythmia like ventricular tachycardia or long pauses but nothing noted on telemetry apart from atrial flutter with controlled rate and nocturnal bradycardia. We can lower the beta-lindy dose. Otherwise continue his usual medications. When I spoke to her about transferring to [facility] he has had he would rather go home against medical advise but per hospitalist, he is now more amenable. I believe he will require an EP evaluation towards ICD placement as well as possibly flutter ablation. I will talk to him again tomorrow and then explain the plan and if agreeable then we will transfer. Otherwise monitor on telemetry for now. Fall Risk Details Current Medications: Current Medications Generic Name Dose Route Start Last Admin Trade Name Selwyn PRN Reason Stop Dose Admin Acetaminophen 650 mg 07/02/20 05:04 Acetaminophen 325 Mg Tablet PO Q6H PRN Pain, Mild (Pain Scale 1-3) Albuterol Sulfate 2 puff 07/02/20 05:04 Albuterol Sulfate 90 Mcg 8 Gm Inhaler INHALE Q6H PRN Shortness Of Breath Atorvastatin Calcium 80 mg 07/02/20 09:00 07/03/20 09:50 Atorvastatin Calcium 80 Mg Tablet PO 80 mg DAILY JACKSON Administration Docusate Sodium 100 mg 07/02/20 05:04 Docusate Sodium 100 Mg Capsule PO DAILY PRN Constipation Fluticasone/Vilanterol 1 puff 07/02/20 09:00 07/03/20 09:50 Fluticasone/Vilanterol 100/25 Blst.W.Dev INHALE 1 puff DAILY JACKSON Administration Metoprolol Succinate 25 mg 07/03/20 09:00 07/03/20 09:47 Metoprolol Succinate Er 50 Mg Tab.Er.24h PO Not Given DAILY JACKSON Protocol Ondansetron HCl 4 mg 07/02/20 05:04 Ondansetron Hcl 4 Mg/2 Ml Vial IVPUSH Q8H PRN Nausea and Vomiting Sodium Chloride 3 ml 07/02/20 08:00 07/03/20 08:12 0.9 % Sodium Chloride Flush 3 Ml Syringe IVFLUSH 3 ml QSHIFT JACKSON Administration Trazodone HCl 100 mg 07/02/20 21:00 07/02/20 20:24 Trazodone Hcl 100 Mg Tablet PO 100 mg BEDTIME JACKSON Administration Warfarin Sodium 2 mg 07/03/20 18:00 Warfarin Sodium 2 Mg Tablet PO DAILY@1800 [facility] Time Spent With Patient Time: Total time spent is greater than 50% in coordination of care (as documented) at patient's floor/unit and/or counseling patient: Time with patient: less than 15 minutes
--- NOTE | 2020-07-03 11:28 | P.PNIM_ITS ---
Subjective Subjective Date of Service: 07/03/20 Interval History: no complaints Cardiovascular Cardiovascular: Reports no additional cardiovascular complaints Gastrointestinal Gastrointestinal: Reports no additional gastrointestinal complaints Physical Exam Vital Signs: Vital Signs: Last Vital Signs Temp 98.0 F 07/03/20 07:26 Pulse 53 07/03/20 09:47 Resp 18 07/03/20 07:26 BP 106/66 07/03/20 07:26 Pulse Ox 98 07/03/20 07:26 Body Mass Index 31.8 General: AO X 3, no acute distress Resp: CTA bilateral CVS: S1,S2,RRR GI: soft, non tender, non distended Neuro: motor grossly intact Psych: appropriate affect Objective Data Current Medications Generic Name Dose Route Start Last Admin Trade Name Freq PRN Reason Stop Dose Admin Acetaminophen 650 mg 07/02/20 05:04 Acetaminophen 325 Mg Tablet PO Q6H PRN Pain, Mild (Pain Scale 1-3) Albuterol Sulfate 2 puff 07/02/20 05:04 Albuterol Sulfate 90 Mcg 8 Gm Inhaler INHALE Q6H PRN Shortness Of Breath Atorvastatin Calcium 80 mg 07/02/20 09:00 07/03/20 09:50 Atorvastatin Calcium 80 Mg Tablet PO 80 mg DAILY JACKSON Administration Docusate Sodium 100 mg 07/02/20 05:04 Docusate Sodium 100 Mg Capsule PO DAILY PRN Constipation Fluticasone/Vilanterol 1 puff 07/02/20 09:00 07/03/20 09:50 Fluticasone/Vilanterol 100/25 Blst.W.Dev INHALE 1 puff DAILY JACKSON Administration Metoprolol Succinate 25 mg 07/03/20 09:00 07/03/20 09:47 Metoprolol Succinate Er 50 Mg Tab.Er.24h PO Not Given DAILY JACKSON Protocol Ondansetron HCl 4 mg 07/02/20 05:04 Ondansetron Hcl 4 Mg/2 Ml Vial IVPUSH Q8H PRN Nausea and Vomiting Sodium Chloride 3 ml 07/02/20 08:00 07/03/20 08:12 0.9 % Sodium Chloride Flush 3 Ml Syringe IVFLUSH 3 ml QSHIFT JACKSON Administration Trazodone HCl 100 mg 07/02/20 21:00 07/02/20 20:24 Trazodone Hcl 100 Mg Tablet PO 100 mg BEDTIME JACKSON Administration Warfarin Sodium 2 mg 07/03/20 18:00 Warfarin Sodium 2 Mg Tablet PO DAILY@1800 [facility] Labs CBC & Chem 7: 07/03/20 05:10 07/03/20 05:10 Assessment and Plan (1) NSTEMI (non-ST elevated myocardial infarction): Status: Acute (2) Atherosclerotic cardiovascular disease: Status: Acute (3) Nonischemic cardiomyopathy: Status: Inactive Assessment and Plan: This is a 80-year-old male with history of AFib on Coumadin who presented to the hospital with syncope syncope in patient with non ischemic cardiomyopathy asystole vs VT plan for transfer to [facility] for EP aflutter coumadin decrease toprol to 25mg daily COPD - no evidence of exacerbation
--- NOTE | 2020-07-03 14:51 | PC.NURSE ---
Pt was moved to room 446 from 444, states he did not sleep well last night because roommate was awake and noisy. Pt had stated he wanted to leave AMA, conversed with pt and he agreed to stay. Pt asking to wash and change clothing, pt given items for self care. HE is resting quietly at this time.
[2020-07-03] MEDS: Warfarin Sodium 2 MG TABLET PO (18:38)
[2020-07-03] MEDS: traZODone HCL 100 MG TABLET PO (23:00)
[2020-07-04] MEDS: 0.9 % Sodium Chloride Flush 3 ML SYRINGE IVFLUSH ×2 (00:04→08:41)
[2020-07-04 03:15] VITALS: BP 123/63; PULSE 58; RESP 16; TEMP 36.6; O2SAT 94
[2020-07-04 07:06] LABS: INTERNATIONAL NORM RATIO 2.3 (0.9-1.1); Prothrombin Time 28.1 SEC (10.8-13.0)
[2020-07-04 07:16] LABS: Basophils Percent Auto 0.1 % (0-2); Imm Gran Abs Auto 0.02 X10*3/uL (0.00-0.03); Imm Gran Pct Auto 0.3 % (0.0-0.4); MANUAL DIFF FLAG SCAN; SCAN SMEAR FLAG 1
[2020-07-04 07:18] LABS: Eosinophils Absolute Auto 0.2 X10*3/uL (0.0-0.4); Eosinophils Percent Auto 2.1 % (0-4); Hematocrit 41.5 % (42-52); Hemoglobin 13.2 g/dl (14.0-18.0); Lymphocytes Absolute Auto 0.9 X10*3/uL (1.2-4.9); Mean Corpuscular HGB Conc 31.8 g/dl (31.0-36.0); Mean Corpuscular Hemoglobin 29.8 pg (27.0-33.0); Mean Corpuscular Volume 93.7 fL (80-98); Mean Platelet Volume 13.4 fL (9.4-12.4); Monocytes Absolute Auto 0.7 X10*3/uL (0.1-1.2); Monocytes Percent Auto 10.4 % (2-11); Neutrophils Absolute Auto 5.2 X10*3/uL (2.0-8.3); Neutrophils Percent Auto 74.1 % (45-73); Platelet Count 142 X10*3/uL (160-400); Red Blood Count 4.43 X10*6/uL (4.60-5.80); Red Cell Distribution Width 14.1 % (11.0-16.0)
[2020-07-04 07:22] LABS: Anion Gap 13 (12-20); Blood Urea Nitrogen 19 mg/dL (9-16); Calcium 8.2 mg/dL (8.4-10.2); Carbon Dioxide 25 mmol/L (22-29); Chloride 110 mmol/L (96-108); Estimated Glomerular Filt Rate > 60; Glucose Fasting 119 mg/dL (60-99); Potassium 4.3 mmol/l (3.3-5.1); Sodium 144 mmol/L (135-145)
[2020-07-04 07:31] LABS: PLT ABN DIST 1
[2020-07-04 08:00] VITALS: BP 122/83; PULSE 78; RESP 18; TEMP 36.6; O2SAT 94
[2020-07-04] MEDS: Fluticasone/Vilanterol 100/25 BLST.W.DEV 1 PUFF INHALE (08:03)
[2020-07-04 08:06] VITALS: PULSE 86
[2020-07-04 08:41] VITALS: BP 122/83; PULSE 78
[2020-07-04] MEDS: Atorvastatin Calcium 80 MG TABLET PO (08:41)
[2020-07-04 08:42] VITALS: BP 122/83; PULSE 78
[2020-07-04] MEDS: Metoprolol Succinate ER 50 MG TAB.ER.24H 25 MG PO (08:42)
--- NOTE | 2020-07-04 10:03 | PM.DS ---
DS: Providers Provider Date of Service: 07/04/20 Date of admission: 07/02/20 05:04 Primary care physician: Unknown Physician Consults: 07/02/20 05:04 Consult to Cardiology Routine Consulting Provider: Benny Castro Reason for consultation: elevated trop, with pre-syncopal episodes ( possible syncope) Has provider been notified: No DS: Diagnosis Discharge Diagnosis (1) NSTEMI (non-ST elevated myocardial infarction): Status: Acute (2) Atherosclerotic cardiovascular disease: Status: Acute (3) Nonischemic cardiomyopathy: Status: Inactive DS: Medications Discharge Medications Home Medications: Home Medications Medication Instructions Recorded Confirmed albuterol sulfate 90 mcg/actuation 2 puff INHALATION Q6H PRN 04/13/20 07/02/20 aerosol inhaler metoprolol tartrate 50 mg tablet 50 mg PO DAILY tab 04/13/20 07/02/20 atorvastatin 40 mg PO DAILY 07/02/20 07/02/20 furosemide 20 mg PO Q2D 07/02/20 07/02/20 furosemide 40 mg PO Q2D 07/02/20 07/02/20 lisinopril 5 mg PO DAILY 07/02/20 07/02/20 trazodone 100 mg PO BEDTIME PRN 07/02/20 07/02/20 warfarin 2 mg PO Q2D 07/02/20 07/02/20 warfarin 2.5 mg PO Q2D 07/02/20 07/02/20 Previous Rx's Medication Instructions Recorded fluticasone furoate 100 1 ea INHALATION DAILY #180 ea 05/10/20 mcg-vilanterol 25 mcg/dose inhalation powder DS: Summary Hospital Course Hospital Course: Patient was admitted for syncope. Found to have elevated troponin of about 7000. Denies any chest pain or shortness of breath. Echo showed an EF of 10-20%. Previous cardiac catheterization from 2019 showed nonobstructive coronary disease. Likely nonischemic cardiomyopathy. Telemetry showed a flutter, had 3.5 second pause overnight. Cause of syncope likely asystole versus VT. Recommendations from Cardiology were to transfer to [facility] for electrophysiology evaluation and possible AICD implantation. Patient, however, is refusing. He is aware of the risks including . He has decided to leave against medical advice. Time Spent with Patient Time attestation: Total time spent providing and/or coordinating discharge services: Discharge coordination time: Greater than 30 minutes Physical Exam Vital Signs: Vital Signs: Last Vital Signs Temp 97.8 F 07/04/20 08:00 Pulse 78 07/04/20 08:42 Resp 18 07/04/20 08:00 BP 122/83 07/04/20 08:42 Pulse Ox 94 07/04/20 08:00 Body Mass Index 31.8 General: AO X 3, no acute distress Resp: CTA bilateral CVS: S1,S2,RRR GI: soft, non tender, non distended Neuro: motor grossly intact Psych: appropriate affect DS: Data Data Completed and Pending Labs on day of discharge: Laboratory Tests 07/02/20 07/02/20 07/02/20 00:52 00:52 00:52 WBC 7.5 RBC 4.65 Hgb 13.9 L Hct 42.4 MCV 91.2 MCH 29.9 MCHC 32.8 RDW 13.7 Plt Count 158 L MPV 12.5 H Immature Gran % (Auto) 0.4 Neut % (Auto) 78.5 H Lymph % (Auto) 10.6 L [place] % (Auto) 9.7 Eos % (Auto) 0.5 Baso % (Auto) 0.3 Lymph # (Auto) 0.8 L [place] # (Auto) 0.7 Eos # (Auto) 0.0 Baso # (Auto) 0.0 Abs Immat Gran (auto) 0.03 Absolute Neuts (auto) 5.9 Absolute Nucleated RBC 0.000 Nucleated RBC % (auto) 0.0 Smear Tech's Comments PT 25.3 H D INR 2.1 H APTT Sodium 140 Potassium 3.7 Chloride 103 Carbon Dioxide 23 Anion Gap 18 BUN 26 H Creatinine 1.44 H Estim Creat Clear Calc 43.5 Estimated GFR 47 Random Glucose 165 H Fasting Glucose Calcium 8.5 Magnesium Troponin I High Sens B-Natriuretic Peptide COVID-19 (GAYLE) COVID-19 Clin Com 07/02/20 07/02/20 07/02/20 00:52 06:15 06:15 WBC RBC Hgb Hct MCV MCH MCHC RDW Plt Count MPV Immature Gran % (Auto) Neut % (Auto) Lymph % (Auto) [place] % (Auto) Eos % (Auto) Baso % (Auto) Lymph # (Auto) [place] # (Auto) Eos # (Auto) Baso # (Auto) Abs Immat Gran (auto) Absolute Neuts (auto) Absolute Nucleated RBC Nucleated RBC % (auto) Smear Tech's Comments PT 25.4 H INR 2.1 H APTT 37.0 Sodium Potassium Chloride Carbon Dioxide Anion Gap BUN Creatinine Estim Creat Clear Calc Estimated GFR Random Glucose Fasting Glucose Calcium Magnesium Troponin I High Sens 939.2 H B-Natriuretic Peptide 209 H COVID-19 (GAYLE) COVID-19 [email or web address] 07/02/20 07/02/20 07/03/20 06:15 06:29 05:10 WBC Cancelled RBC Cancelled Hgb Cancelled Hct Cancelled MCV Cancelled MCH Cancelled MCHC Cancelled RDW Cancelled Plt Count Cancelled MPV Cancelled Immature Gran % (Auto) Cancelled Neut % (Auto) Cancelled Lymph % (Auto) Cancelled [place] % (Auto) Cancelled Eos % (Auto) Cancelled Baso % (Auto) Cancelled Lymph # (Auto) Cancelled [place] # (Auto) Cancelled Eos # (Auto) Cancelled Baso # (Auto) Cancelled Abs Immat Gran (auto) Cancelled Absolute Neuts (auto) Cancelled Absolute Nucleated RBC Cancelled Nucleated RBC % (auto) Cancelled Smear Tech's Comments PT INR APTT Sodium Potassium Chloride Carbon Dioxide Anion Gap BUN Creatinine Estim Creat Clear Calc Estimated GFR Random Glucose Fasting Glucose Calcium Magnesium Troponin I High Sens 7428.7 H D B-Natriuretic Peptide COVID-19 (GAYLE) Negative [facility] See Note 07/03/20 07/03/20 07/03/20 05:10 05:10 05:10 WBC 7.4 RBC 4.56 L Hgb 13.6 L Hct 42.4 MCV 93.0 MCH 29.8 MCHC 32.1 RDW 14.2 Plt Count 141 L MPV 13.5 H Immature Gran % (Auto) 0.3 Neut % (Auto) 73.1 H Lymph % (Auto) 14.8 L [place] % (Auto) 9.6 Eos % (Auto) 1.9 Baso % (Auto) 0.3 Lymph # (Auto) 1.1 L [place] # (Auto) 0.7 Eos # (Auto) 0.1 Baso # (Auto) 0.0 Abs Immat Gran (auto) 0.02 Absolute Neuts (auto) 5.4 Absolute Nucleated RBC 0.000 Nucleated RBC % (auto) 0.0 Smear Tech's Comments PT INR APTT Sodium 140 Potassium 4.4 Chloride 108 Carbon Dioxide 24 Anion Gap 12 BUN 23 H Creatinine 0.98 Estim Creat Clear Calc 63.9 Estimated GFR > 60 Random Glucose TNP Fasting Glucose 121 H Calcium 8.1 L Magnesium Troponin I High Sens 2746.1 H D B-Natriuretic Peptide COVID-19 (GAYLE) COVID-19 [email or web address] 07/03/20 07/04/20 07/04/20 08:53 05:16 05:16 WBC 7.0 RBC 4.43 L Hgb 13.2 L Hct 41.5 L MCV 93.7 MCH 29.8 MCHC 31.8 RDW 14.1 Plt Count 142 L MPV 13.4 H Immature Gran % (Auto) 0.3 Neut % (Auto) 74.1 H Lymph % (Auto) 13.0 L [place] % (Auto) 10.4 Eos % (Auto) 2.1 Baso % (Auto) 0.1 Lymph # (Auto) 0.9 L [place] # (Auto) 0.7 Eos # (Auto) 0.2 Baso # (Auto) 0.0 Abs Immat Gran (auto) 0.02 Absolute Neuts (auto) 5.2 Absolute Nucleated RBC 0.000 Nucleated RBC % (auto) 0.0 Smear Tech's Comments Not Reportable PT 28.0 H 28.1 H INR 2.3 H 2.3 H APTT Sodium Potassium Chloride Carbon Dioxide Anion Gap BUN Creatinine Estim Creat Clear Calc Estimated GFR Random Glucose Fasting Glucose Calcium Magnesium Troponin I High Sens B-Natriuretic Peptide COVID-19 (GAYLE) COVID-19 [employer] 07/04/20 05:16 WBC RBC Hgb Hct MCV MCH MCHC RDW Plt Count MPV Immature Gran % (Auto) Neut % (Auto) Lymph % (Auto) [place] % (Auto) Eos % (Auto) Baso % (Auto) Lymph # (Auto) [place] # (Auto) Eos # (Auto) Baso # (Auto) Abs Immat Gran (auto) Absolute Neuts (auto) Absolute Nucleated RBC Nucleated RBC % (auto) Smear Tech's Comments PT INR APTT Sodium 144 Potassium 4.3 Chloride 110 H Carbon Dioxide 25 Anion Gap 13 BUN 19 H Creatinine 0.95 Estim Creat Clear Calc 66.0 Estimated GFR > 60 Random Glucose Fasting Glucose 119 H Calcium 8.2 L Magnesium 2.0 Troponin I High Sens B-Natriuretic Peptide COVID-19 (GAYLE) COVID-19 Clin Com Discharge Plan Discharge Patient Disposition: Left Against Medical Advice Referrals: Physician,Unknown [Primary Care Provider] - Discharge Medications: Continued fluticasone furoate-vilanterol [Breo Ellipta] 100-25 mcg/dose blister with device 1 ea inhalation DAILY Qty: 180 RF: 5 atorvastatin 40 mg tablet 40 mg PO DAILY RF: 0 furosemide 20 mg tablet 20 mg PO Q2D RF: 0 furosemide 20 mg tablet 40 mg PO Q2D RF: 0 warfarin 2.5 mg tablet 2.5 mg PO Q2D RF: 0 trazodone 100 mg tablet 100 mg PO BEDTIME PRN (Reason: Insomnia) RF: 0 warfarin 2 mg tablet 2 mg PO Q2D RF: 0 lisinopril 5 mg tablet 5 mg PO DAILY RF: 0 albuterol sulfate [ProAir HFA] 90 mcg/actuation HFA aerosol inhaler 2 puff inhalation Q6H PRN (Reason: Shortness Of Breath) RF: 0 Changed metoprolol tartrate 50 mg tablet 25 mg PO DAILY Qty: 0 RF: 0 Discharge Orders: Discharge Order (Routine); Ordered 07/04/20 Ordered By: Mayur Jerry Diet: advance to usual diet Activity on Discharge: As tolerated Care Plan Goals: avoid sudden cardiac Health Concerns: cardiomyopathy and likely arrythmias Plan of Treatment: you were recommended to transfer to [facility] directly for EP evaluation as you are at risk for sudden cardiac , please follow up with cardiology as soon as possible, decrease toprol to 25mg daily
--- NOTE | 2020-07-04 10:48 | PM.PNCARD ---
Subjective Subjective Date of Service: 07/04/20 Interval history: He states that he feels okay. Wants to get discharged. Review of Systems Review of Systems Yes all other systems are reviewed and are negative Cardiovascular: Reports as per HPI, Reports no additional cardiovascular complaints, Denies acrocyanosis, Denies cool extremities, Denies painful fingertips, Reports chest pain, Denies chest pain at rest, Denies diaphoresis, Denies syncope, Denies irregular heart rhythm, Denies claudication, Denies leg edema, Reports lightheadedness, Denies palpitations and Denies dyspnea Respiratory: Denies dyspnea Denies syncope Endocrine: Denies palpitations Physical Exam Vital Signs: Last Vital Signs Temp 97.8 F 07/04/20 08:00 Pulse 78 07/04/20 08:42 Resp 18 07/04/20 08:00 BP 122/83 07/04/20 08:42 Pulse Ox 94 07/04/20 08:00 Body Mass Index 31.8 Const General: cooperative, comfortable and no acute distress Orientation/consciousness: patient oriented x3 HENMT Other: Unremarkable Neck Neck: Yes normal visual inspection Chest Chest palpation & inspection: normal inspection of the chest Resp Auscultation: clear to auscultation bilaterally, no crackles and no wheezes Cardio Jugular venous distension: no JVD Palpation: normal PMI Heart sounds: S1 normal heart sound present, S2 normal heart sound present, no gallops, no murmurs and no rubs GI Palpation (GI): Soft to palpation Back/Spine/Pelvis Other: unremarkable Skin General skin exam: no rashes or lesions noted Neuro General: patient oriented x3 Extrem General: Yes no clubbing, cyanosis or edema Psych Mental Status: mental status grossly normal Results Labs and Meds Result diagrams: 07/04/20 05:16 07/04/20 05:16 Lab results: Laboratory Results - last 24 hr 07/04/20 07/04/20 07/04/20 05:16 05:16 05:16 WBC 7.0 RBC 4.43 L Hgb 13.2 L Hct 41.5 L MCV 93.7 MCH 29.8 MCHC 31.8 RDW 14.1 Plt Count 142 L MPV 13.4 H Immature Gran % (Auto) 0.3 Neut % (Auto) 74.1 H Lymph % (Auto) 13.0 L [place] % (Auto) 10.4 Eos % (Auto) 2.1 Baso % (Auto) 0.1 Lymph # (Auto) 0.9 L [place] # (Auto) 0.7 Eos # (Auto) 0.2 Baso # (Auto) 0.0 Abs Immat Gran (auto) 0.02 Absolute Neuts (auto) 5.2 Absolute Nucleated RBC 0.000 Nucleated RBC % (auto) 0.0 Smear Tech's Comments Not Reportable PT 28.1 H INR 2.3 H Sodium 144 Potassium 4.3 Chloride 110 H Carbon Dioxide 25 Anion Gap 13 BUN 19 H Creatinine 0.95 Estim Creat Clear Calc 66.0 Estimated GFR > 60 Fasting Glucose 119 H Calcium 8.2 L Magnesium 2.0 Progress Note: A&P Assessment and plan (1) NSTEMI (non-ST elevated myocardial infarction): Status: Acute (2) Atherosclerotic cardiovascular disease: Status: Acute (3) Nonischemic cardiomyopathy: Status: Inactive Assessment and Plan: Echocardiogram shows severely impaired LVEF at 10-15%. This is lower than prior echocardiogram. Holter still shows atrial flutter with controlled rate. There was some slight nocturnal bradycardia but nothing profound. Cardiac catheterization from 2019 did not show any significant disease. His rise and fall in troponins does suggest something acute but not clear as to what happened. Possible arrhythmia like ventricular tachycardia or long pauses but nothing noted on telemetry apart from atrial flutter with controlled rate and nocturnal bradycardia. On lower beta-lindy dose. Otherwise continue his usual medications. Yesterday, he wanted to sign against medical advise but eventually decided to stay. Discussed about transferring to [facility] for further workup including electrophysiology evaluation for ICD placement/flutter ablation. Patient however is not interested and would like to be discharged home. He is aware of risks including . He is willing to sign against medical advice. Fall Risk Details Current Medications: Current Medications Generic Name Dose Route Start Last Admin Trade Name Freq PRN Reason Stop Dose Admin Acetaminophen 650 mg 07/02/20 05:04 Acetaminophen 325 Mg Tablet PO Q6H PRN Pain, Mild (Pain Scale 1-3) Albuterol Sulfate 2 puff 07/02/20 05:04 Albuterol Sulfate 90 Mcg 8 Gm Inhaler INHALE Q6H PRN Shortness Of Breath Atorvastatin Calcium 80 mg 07/02/20 09:00 07/04/20 08:41 Atorvastatin Calcium 80 Mg Tablet PO 80 mg DAILY JACKSON Administration Docusate Sodium 100 mg 07/02/20 05:04 Docusate Sodium 100 Mg Capsule PO DAILY PRN Constipation Fluticasone/Vilanterol 1 puff 07/02/20 09:00 07/04/20 08:03 Fluticasone/Vilanterol 100/25 Blst.W.Dev INHALE 1 puff DAILY JACKSON Administration Lisinopril 5 mg 07/03/20 12:05 07/04/20 08:41 Lisinopril 5 Mg Tablet PO 5 mg DAILY JACKSON Administration Protocol Metoprolol Succinate 25 mg 07/03/20 09:00 07/04/20 08:42 Metoprolol Succinate Er 50 Mg Tab.Er.24h PO 25 mg DAILY [facility] Administration Protocol Ondansetron HCl 4 mg 07/02/20 05:04 Ondansetron Hcl 4 Mg/2 Ml Vial IVPUSH Q8H PRN Nausea and Vomiting Sodium Chloride 3 ml 07/02/20 08:00 07/04/20 08:41 0.9 % Sodium Chloride Flush 3 Ml Syringe IVFLUSH 3 ml QSHIFT JACKSON Administration Trazodone HCl 100 mg 07/02/20 21:00 07/03/20 23:00 Trazodone Hcl 100 Mg Tablet PO 100 mg BEDTIME JACKSON Administration Warfarin Sodium 2 mg 07/03/20 18:00 07/03/20 18:38 Warfarin Sodium 2 Mg Tablet PO 2 mg DAILY@1800 JACKSON Administration Time Spent With Patient Time: Total time spent is greater than 50% in coordination of care (as documented) at patient's floor/unit and/or counseling patient: Time with patient: less than 15 minutes
== END 2020-07-04 13:35 | disposition left against medical advice (07) | DRG 281 ==
LOC: HO.ED 07-02 03:07 → HO.EDOVER 07-02 05:26 → HO.IMC 07-02 09:06
PROVIDERS: Admitting Provider Internal Medicine; Emergency Provider Emergency Medicine; PCP Nurse Practitioner Family; Visit Provider Internal Medicine
DX: I21.4 Non-ST elevation (NSTEMI) myocardial infarction (principal); I42.8 Other cardiomyopathies; I25.10 Atherosclerotic heart disease of native coronary artery without angina pectoris; I48.91 Unspecified atrial fibrillation; E78.5 Hyperlipidemia, unspecified; F17.210 Nicotine dependence, cigarettes, uncomplicated; Z71.6 Tobacco abuse counseling; Z20.822 Contact with and (suspected) exposure to COVID-19; Z79.01 Long term (current) use of anticoagulants; Z79.899 Other long term (current) drug therapy
CPT/HCPCS: 36415; 80048; 83735; 83880; 84484; 85025; 85610; 85730; 87635; 93005; 93306; 96360; 99285

== ENCOUNTER → 2020-07-12 13:56 | Outpatient (BNVA) | payer MEDICARE, MEDICAID, OTHER, SELFPAY | PROVIDERS: Visit Provider Internal Medicine Cardiovascular Disease | DX: I21.4 Non-ST elevation (NSTEMI) myocardial infarction (principal); I42.8 Other cardiomyopathies; I48.3 Typical atrial flutter; R55 Syncope and collapse | CPT/HCPCS: 99212 ==

== ENCOUNTER 2020-07-20 09:17 | Outpatient (REF) | payer MEDICARE, MEDICAID, OTHER, SELFPAY ==
[2020-07-20 11:56] LABS: Alanine Aminotransferase 22 U/L (0-40); Albumin Level 4.2 g/dL (3.5-5.0); Alkaline Phosphatase 70 U/L (39-117); Anion Gap 17 (12-20); Aspartate Amino Transferase 19 U/L (5-37); Bilirubin Total 0.4 mg/dL (0.0-1.0); Blood Urea Nitrogen 25 mg/dL (9-16); Carbon Dioxide 26 mmol/L (22-29); Chloride 104 mmol/L (96-108); Cholesterol 118 mg/dL; Estimated Glomerular Filt Rate 52; Glucose Fasting 159 mg/dL (60-99); HDL Cholesterol 26 mg/dL; LDL Cholesterol Calculated 68 mg/dl; Potassium 4.7 mmol/L (3.3-5.1); Sodium 142 mmol/L (135-145); Total Protein 7.5 g/dL (6.5-8.0); Triglycerides 120 mg/dL
[2020-07-20 12:20] LABS: TSH reflex Free T4 0.96 uIU/mL (0.32-4.0)
== END 2020-07-20 09:18 | disposition home or self-care (01) ==
LOC: HO.HMGCLDS 09:17
PROVIDERS: PCP Nurse Practitioner Family; Visit Provider Nurse Practitioner Family
DX: I21.4 Non-ST elevation (NSTEMI) myocardial infarction (principal); I25.10 Atherosclerotic heart disease of native coronary artery without angina pectoris; I42.8 Other cardiomyopathies; I48.92 Unspecified atrial flutter; I48.91 Unspecified atrial fibrillation
CPT/HCPCS: 36415; 80053; 80061; 84443

== ENCOUNTER 2020-07-21 11:45 | Outpatient (REF) | payer MEDICARE, OTHER, SELFPAY | END 2020-07-21 11:46 | disposition home or self-care (01) | LOC: HO.LHD 11:45 | PROVIDERS: Visit Provider Nurse Practitioner Family | DX: Z13.89 Encounter for screening for other disorder (principal) ==

== ENCOUNTER 2020-07-22 05:10 | Outpatient (REF) | payer MEDICARE, MEDICAID, OTHER, SELFPAY ==
[2020-07-22 10:02] LABS: INTERNATIONAL NORM RATIO 1.6 (0.9-1.1); Prothrombin Time 19.5 SEC (10.8-13.0)
== END 2020-07-22 05:11 | disposition home or self-care (01) ==
LOC: HO.LHD 05:10
PROVIDERS: Visit Provider Nurse Practitioner Family
DX: Z79.01 Long term (current) use of anticoagulants (principal)
CPT/HCPCS: 36415; 85610

== ENCOUNTER 2020-07-28 05:14 | Outpatient (REF) | payer MEDICARE, MEDICAID, OTHER, SELFPAY ==
[2020-07-28 11:28] LABS: INTERNATIONAL NORM RATIO 1.9 (0.9-1.1); Prothrombin Time 22.7 SEC (10.8-13.0)
== END 2020-07-28 05:15 | disposition home or self-care (01) ==
LOC: HO.LHD 05:14
PROVIDERS: Visit Provider Nurse Practitioner Family
DX: Z79.01 Long term (current) use of anticoagulants (principal)
CPT/HCPCS: 36415; 85610

== ENCOUNTER 2020-08-16 14:12 | Observation (INO) | payer MEDICARE, OTHER, SELFPAY ==
[2020-08-12 11:18] VITALS: BMI 32.1
[2020-08-16] VITALS (13 sets, daily range): BP systolic 93–139; BP diastolic 45–82; PULSE 56–82; RESP 14–20; TEMP 36.1–36.6; O2SAT 94–98; BMI 32.1
--- NOTE | ~2020-08-16 | XR_ITS ---
EXAMINATION: XR CHEST CLINICAL INFORMATION: Rule out pneumothorax status post ICD COMPARISON: None TECHNIQUE: Frontal view of the chest was obtained. FINDINGS: Left chest wall AICD with lead overlying the right ventricle. The lungs are well expanded. Linear left basilar atelectasis. No consolidation, edema, or effusion. No pneumothorax. The cardiomediastinal silhouette is prominent, with a calcified aorta. XR/XR chest 1V IMPRESSION: Left chest wall AICD with lead overlying the right ventricle. No pneumothorax. Left basilar atelectasis.
--- NOTE | ~2020-08-16 | FL_ITS ---
EXAMINATION: XR FLUOROSCOPY WITH IMAGES CLINICAL INFORMATION: ICD insertion COMPARISON: Chest radiograph from today TECHNIQUE: Fluoroscopy performed by Dr. Mohan. Fluoroscopy time: 22.3 minutes DAP: 109 Gycm2 Images: 2 FINDINGS: On the submitted images there is the pacer wire seen overlying the right ventricle. FL/FL guidance in OR IMPRESSION: Fluoroscopic guidance for insertion of AICD. Please refer to procedural report for further information.
--- NOTE | ~2020-08-16 | XR_ITS ---
EXAMINATION: XR CHEST CLINICAL INFORMATION: Rule out pneumothorax COMPARISON: 08/16/2020 TECHNIQUE: 2 views of the chest were obtained. FINDINGS: Left-sided AICD lead tip overlies the right ventricle. Lung volumes are symmetric. No focal consolidation is seen. No evidence of pneumothorax, pleural effusion, or pulmonary edema. Cardiac silhouette is mildly enlarged. No acute osseous findings are seen. XR/XR chest 2V IMPRESSION: No acute cardiopulmonary findings. Mildly enlarged cardiac silhouette.
--- NOTE | 2020-08-16 10:19 | PC.NURSE ---
patient was in waiting room and called labs to be drawn. recalled for labs to be drawn. brought patient into room 7.
[2020-08-16 10:33] LABS: MANUAL DIFF FLAG NO
[2020-08-16 10:36] LABS: Basophils Percent Auto 0.4 % (0-2); Eosinophils Absolute Auto 0.2 X10*3/uL (0.0-0.4); Eosinophils Percent Auto 2.1 % (0-4); Hematocrit 41.5 % (42-52); Hemoglobin 13.6 g/dl (14.0-18.0); Imm Gran Abs Auto 0.02 X10*3/uL (0.00-0.03); Imm Gran Pct Auto 0.3 % (0.0-0.4); Lymphocytes Absolute Auto 0.9 X10*3/uL (1.2-4.9); Lymphocytes Percent Auto 12.8 % (20-40); Mean Corpuscular HGB Conc 32.8 g/dl (31.0-36.0); Mean Corpuscular Volume 91.6 fL (80-98); Mean Platelet Volume 12.5 fL (9.4-12.4); Monocytes Absolute Auto 0.6 X10*3/uL (0.1-1.2); Monocytes Percent Auto 8.8 % (2-11); Neutrophils Absolute Auto 5.4 X10*3/uL (2.0-8.3); Neutrophils Percent Auto 75.6 % (45-73); Platelet Count 129 X10*3/uL (160-400); Red Blood Count 4.53 X10*6/uL (4.60-5.80); Red Cell Distribution Width 13.5 % (11.0-16.0); White Blood Count 7.2 X10*3/uL (4.8-10.8)
[2020-08-16 10:46] LABS: INTERNATIONAL NORM RATIO 1.4 (0.9-1.1); Prothrombin Time 16.7 SEC (10.8-13.0)
[2020-08-16 10:59] LABS: COVID-19 Test Negative (Negative)
--- NOTE | 2020-08-16 14:14 | P.HPHOSP_ITS ---
History of Present Illness Date of Service: 08/16/20 Chief Complaint: dysuria 80M presented for elective aicd placement. patient had syncopal episode back in june 2020, found to have NSTEMI and cardiomyopathy with EF 10-15%. inpatient workup was offered at that time, however, patient decided to follow up outpat ient. he has not had recurrence of syncopal episodes, however, his EF had not improved, so he underwent AICD placement. procedure was uneventful. patient denies sob, fever, chills. he does note some dysuria today. Review of Systems Review of Systems: Constitutional: Denies fever, denies Chills Eyes: denies blurry vision ENT: denies sore throat CVS: chest pain at surgical site Respiratory: Denies dyspnea GI: no abdominal pain : dysuria MSK: denies neck pain Skin: denies rash Neuro: denies specific motor weakness Psych: denies suicidal ideation Endocrine: denies heat/cold intoleratnce Hematologic: denies easy bleeding Allergy: denies hives [facility] Medical History Asthma Atherosclerotic cardiovascular disease Atrial fibrillation Chronic a-fib COPD (chronic obstructive pulmonary disease) Elevated blood sugar Erectile dysfunction Fatigue Hearing loss High triglycerides HTN (hypertension) Hyperlipidemia Nonischemic cardiomyopathy Stroke Typical atrial flutter Family History Father Unknown family medical history Mother Unknown family medical history Family history: reviewed and not pertinent Surgical History History of appendectomy History of tonsillectomy Social History Housing: Assisted Living Facility Are you a primary child care development specialist to a significant other at home: No Do you presently have visiting nurse or other home services: Yes Alcohol intake: current Alcohol intake frequency: a few times a week Smoking Status: Former smoker Tobacco Type: Cigarette Second Hand Smoke Exposure: No Use of substances other than those prescribed or required for medical reasons: No Have you been hit, kicked, punched, or otherwise hurt by someone within the past year? If so, by whom?: No Advance Directives: Yes Advance Directives Information Provided: Yes Advance Directives on File: Yes Advance Directives Date on File: 05/10/1929 Recently lost weight without trying: No service: No Meds Allergies Allergy/AdvReac Type Severity Reaction Status Date / Time No Known Allergies Allergy Verified 07/20/20 10:03 [No Known Allergies*] Active Medications: Current Medications Generic Name Dose Route Start Last Admin Trade Name [place] PRN Reason Stop Dose Admin Acetaminophen 650 mg 08/16/20 13:38 Acetaminophen 325 Mg Tablet PO Q6H PRN Pain, Mild (Pain Scale 1-3) Cefazolin Sodium/Dextrose 2 gm in 50 mls @ 100 mls/hr 08/16/20 17:20 Ancef IV 08/16/20 17:49 POSTOP@1720 [facility] Home Medications Medication Instructions Recorded Confirmed Last Taken Type albuterol sulfate 90 mcg/actuation 2 puff INHALATION Q6H PRN 04/13/20 08/12/20 Unknown History aerosol inhaler metoprolol tartrate 50 mg tablet 50 mg PO DAILY tab 04/13/20 08/12/20 07/01/20 History atorvastatin 40 mg PO DAILY 07/02/20 08/12/20 07/01/20 History furosemide 20 mg PO Q2D 07/02/20 08/12/20 06/30/20 09:00 History trazodone 100 mg PO BEDTIME PRN 07/02/20 08/12/20 Unknown History warfarin 2 mg PO Q2D 07/02/20 08/12/20 Unknown History warfarin 2.5 mg PO Q2D 07/02/20 08/12/20 Unknown History Physical Exam Vital Signs and Narrative: Vital Signs: Last Vital Signs Temp 97.3 F 08/16/20 13:39 Pulse 62 08/16/20 14:12 Resp 17 08/16/20 14:12 BP 133/68 08/16/20 14:12 Pulse Ox 97 08/16/20 14:12 Body Mass Index 32.1 General: no acute distress HEENT: atraumatic Neck: normal to visual inspection CVS: S1, S2, RRR Resp: CTA bilateral Chest: non tender GI: soft, non tender, non distended : no CVA tenderness Skin: no rashes Extremities: no edema Neuro: Oriented X3, grossly intact Psych: cooperative Results Labs CBC and Chem 7: 08/16/20 10:26 Labs: Laboratory Results - last 24 hr 08/16/20 08/16/20 08/16/20 10:17 10:26 10:26 MCV 91.6 MCH 30.0 MCHC 32.8 RDW 13.5 Plt Count 129 L MPV 12.5 H Immature Gran % (Auto) 0.3 Neut % (Auto) 75.6 H Lymph % (Auto) 12.8 L [place] % (Auto) 8.8 Eos % (Auto) 2.1 Baso % (Auto) 0.4 Lymph # (Auto) 0.9 L [place] # (Auto) 0.6 Eos # (Auto) 0.2 Baso # (Auto) 0.0 Abs Immat Gran (auto) 0.02 Absolute Neuts (auto) 5.4 Absolute Nucleated RBC 0.000 Nucleated RBC % (auto) 0.0 PT 16.7 H D INR 1.4 H COVID-19 (GAYLE) Negative COVID-19 Clin Com See Note Blood Type Antibody Screen 08/16/20 10:26 MCV MCH MCHC RDW Plt Count MPV Immature Gran % (Auto) Neut % (Auto) Lymph % (Auto) [place] % (Auto) Eos % (Auto) Baso % (Auto) Lymph # (Auto) [place] # (Auto) Eos # (Auto) Baso # (Auto) Abs Immat Gran (auto) Absolute Neuts (auto) Absolute Nucleated RBC Nucleated RBC % (auto) PT INR COVID-19 (GAYLE) COVID-19 Clin Com Blood Type A Positive Antibody Screen NEGATIVE Imaging Radiologist's Impressions: Impressions Chest X-Ray 08/16/20 14:01 IMPRESSION: Left chest wall AICD with lead overlying the right ventricle. No pneumothorax. Left basilar atelectasis. Assessment and Plan (1) Atrial flutter: Status: Acute (2) Nonischemic cardiomyopathy: Problem details: Clinically compensated Etiology is unclear to me. He does not have significant coronary disease by cardiac catheterization. Initially I thought that atrial flutter is a cause for this but his heart rate has been well controlled previously. Status: Acute 80M with non ischemic cardiomyopathy s/p AICD non ischemic cardiomyopathy s/p AICD today continue ancef, discharge on 5 days of keflex 500mg tid restart coumadin tomorrow, follow up cardiology cxr tomorrow interrogation tomorrow continue marco-i, beta lindy, lasix afib metoprolol, coumadin to restart tomorrow
--- NOTE | 2020-08-16 14:49 | PM.OP ---
Brief Operative Note Date of Service: 08/16/20 Surgeon: Milagros Mohan MD Estimated blood loss (mL): 50
--- NOTE | 2020-08-16 14:55 | W.PM.OPN ---
Operative Note Operative Note Date of Service: 08/16/20 Narrative: Procedure: Single chamber ICD implantation and venography Indication: non-ischemic cardiomyopathy with systolic heart failure and EF 10-15%, class III HF Procedure The risks, benefits, complications, alternatives and expected outcomes were discussed with the patient. Patient was prepped and draped in the usual sterile fashion. After the antibiotic was infused, lidocaine was infiltrated medial to the deltopectoral groove. An incision was made. The incision was extended to the prepectoral fascia using blunt dissection. Axillary access was noted to be difficult to obtain. A venogram was performed that showed the axillary vein was slightly lower than the expected location and access was obtained. The lead was positioned in the RV. We noted that in the high septum or mid-septum, R waves were less than 5 mV. The RV lead was deployed at the apical septum with better R waves noted. Appropriate sensing and thresholds were obtained. No diaphragmatic pacing occurred at high outputs. The lead was sutured to the muscle using 3 ethibond ties. Lead measurements were rechecked. A left prepectoral pocket was fashioned. The lead was attached to the generator. The system was placed in the pocket. The ICD was checked under fluoroscopy with adrquate slack noted noted. The pin of the lead was beyond the set screws. Hemostasis was verified. The pocket was closed with 3 layers. Steristrips and tegaderm were applied Medtronic Device: ICD Visia AF MRI VR [id number] serial [id number] RV lead: 6935 Sprint Quattro serial [id number] Pacing impedance 589 ohms HV impedance 73 ohms Threshold 0.5 V at 0.4 ms R waves 9.5 Programmed VVI 40 BPM VF therapy >200 BPM ATP during charging, [id number] Plan Ancef x 2 doses CXR portable today, PA/lateral tomorrow UA/UCx as he notes dysuria with plans for keflex 500 mg TID for 5 days unless sensitivities of Ucx show resistant to keflex Post-op Instructions: [place] [facility] Dr. Milagros Mohan Pacemaker/ICD Instructions Site Care: Leave dressing on for 5 days. Do not shower or get the area wet for 5 days. Once you remove the dressing, there will be steri-strips in place. Do not peel off, they will fall off. Hand washing is a must when caring for your incision to prevent infections. Avoid touching your incision or using lotions, creams, or ointments until it is healed (2-4 weeks). Activity: Limit the movement of your arm on the same side as the pacemaker but do not stop moving it. Avoid stretching that arm over your head or shoulder-level or lift or carry anything heavier than 5 pounds with the left arm for 6 weeks Avoid golfing, swimming, tennis, bowling, shoveling snow or mowing the lawn for 6 weeks Follow-up instructions: You have scheduled follow-up at [address] [place] [address] on August 31, 2020 at 10:20 AM. Please call [phone] for the [place] office if any questions Please keep the identification card for the device with you, it will be useful when you go through security during flights. Please plug in your home monitor and leave it at your bedside. Call device company if you need assistance plugging in the monitor. Please tell all your healthcare providers you have a pacemaker, especially before procedures or before a MRI. Call your doctor if you have any redness, swelling, pus from incision site, fever of 101 degrees. If you have any bleeding from the incision site, lie down and put pressure on the incision site for 30 minutes. If this does not resolve, please get transportation to the closest hospital but do not drive yourself. Milagros Mohan Electrophysiology/Cardiology Attending??
[2020-08-16] MEDS: 0.9 % Sodium Chloride Flush 3 ML SYRINGE IVFLUSH (17:19)
[2020-08-16] MEDS: ceFAZolin Sodium/Dextrose,Iso 2 GM/50 ML PIGGYBACK IV (17:19)
--- NOTE | 2020-08-16 18:06 | PC.NURSE ---
s/p AICD today , pt alert and oriented x 4 , denied any pain. Incision site to lt upper chest dry and intact covered with dry DSD, no bleeding. Sling present on left arm for precaution. Pt tolrtared po intake for dinner, urinated , urine sent to the the lab for culture.Pt educated regarding precaution r/t new AICD
[2020-08-16] MEDS: traZODone HCL 100 MG TABLET PO (22:19)
[2020-08-17 03:49] VITALS: BP 165/69; PULSE 58; RESP 18; TEMP 36.5; O2SAT 95
[2020-08-17] MEDS: 0.9 % Sodium Chloride Flush 3 ML SYRINGE IVFLUSH ×2 (05:09→08:38)
[2020-08-17 06:40] LABS: INTERNATIONAL NORM RATIO 1.5 (0.9-1.1); Prothrombin Time 17.9 SEC (10.8-13.0)
[2020-08-17 06:46] LABS: Hematocrit 38.3 % (42-52); Hemoglobin 12.5 g/dl (14.0-18.0); Imm Gran Abs Auto 0.02 X10*3/uL (0.00-0.03); Imm Gran Pct Auto 0.2 % (0.0-0.4); Lymphocytes Absolute Auto 0.6 X10*3/uL (1.2-4.9); Lymphocytes Percent Auto 6.4 % (20-40); MANUAL DIFF FLAG SCAN; Mean Corpuscular HGB Conc 32.6 g/dl (31.0-36.0); Mean Corpuscular Volume 91.8 fL (80-98); Mean Platelet Volume 12.9 fL (9.4-12.4); Monocytes Absolute Auto 0.7 X10*3/uL (0.1-1.2); Monocytes Percent Auto 7.7 % (2-11); Neutrophils Absolute Auto 7.9 X10*3/uL (2.0-8.3); Neutrophils Percent Auto 85.7 % (45-73); Platelet Count 121 X10*3/uL (160-400); Red Blood Count 4.17 X10*6/uL (4.60-5.80); Red Cell Distribution Width 13.7 % (11.0-16.0); SCAN SMEAR FLAG 1; White Blood Count 9.2 X10*3/uL (4.8-10.8)
[2020-08-17 06:47] LABS: Anion Gap 14 (12-20); Blood Urea Nitrogen 25 mg/dL (9-16); Calcium 8.6 mg/dL (8.4-10.2); Carbon Dioxide 25 mmol/L (22-29); Chloride 106 mmol/L (96-108); Creatinine Clr Calc Pharmacy 50.8; Estimated Glomerular Filt Rate 56; Glucose Random 179 mg/dL (60-115); Potassium 4.7 mmol/L (3.3-5.1); Sodium 140 mmol/L (135-145)
[2020-08-17] MEDS: Fluticasone/Vilanterol 100/25 BLST.W.DEV 1 PUFF INHALE (07:36)
[2020-08-17 07:37] VITALS: BP 104/57; PULSE 63; RESP 18; TEMP 36.4; O2SAT 96
[2020-08-17 07:39] VITALS: PULSE 61; O2SAT 95
[2020-08-17 07:48] LABS: SLIDE REVIEW VERIFIED
[2020-08-17] MEDS: Metoprolol Tartrate 50 MG TABLET PO (08:38)
[2020-08-17] MEDS: Atorvastatin Calcium 40 MG TABLET PO (08:38)
[2020-08-17] MEDS: Furosemide 20 MG TABLET PO (08:38)
--- NOTE | 2020-08-17 09:12 | MHC.CM.PN ---
Addendum entered by Kathia Parson 08/17/20 09:16: Procedure ICD implantation and venography Original Note: PHIPPS 08/17/20 MALE 80 DX CARDIOMYOPATHY s/p PROCEDURE 08/16 HCP HAS BEEN DOCUMENTED AND PLACED ON THE CHART. [facility] HOME NO SERVICES FAMILY TRANSPORT.
--- NOTE | 2020-08-17 09:39 | PM.DS ---
DS: Providers Provider Date of Service: 08/17/20 Date of admission: 08/16/20 14:12 Primary care physician: JESSY Tuttle DS: Diagnosis Discharge Diagnosis (1) Atrial flutter: Status: Acute (2) Nonischemic cardiomyopathy: Status: Acute DS: Medications Discharge Medications Home Medications: Home Medications Medication Instructions Recorded Confirmed albuterol sulfate 90 mcg/actuation 2 puff INHALATION Q6H PRN 04/13/20 08/12/20 aerosol inhaler metoprolol tartrate 50 mg tablet 50 mg PO DAILY tab 04/13/20 08/12/20 atorvastatin 40 mg PO DAILY 07/02/20 08/12/20 furosemide 20 mg PO Q2D 07/02/20 08/12/20 trazodone 100 mg PO BEDTIME PRN 07/02/20 08/12/20 warfarin 2 mg PO Q2D 07/02/20 08/12/20 warfarin 2.5 mg PO Q2D 07/02/20 08/12/20 furosemide 40 mg PO Q2D 08/16/20 08/16/20 Previous Rx's Medication Instructions Recorded fluticasone furoate 100 1 ea INHALATION DAILY #180 ea 05/10/20 mcg-vilanterol 25 mcg/dose inhalation powder furosemide 20 mg tablet See Rx Instructions PO DAILY 90 08/05/20 Days #145 tab lisinopril 5 mg tablet 5 mg PO DAILY #90 tab 08/05/20 DS: Summary Hospital Course Hospital Course: On 08/16/20 Patient underwent elective Single chamber ICD (Medtronic Device: ICD Visia AF MRI VR [id number] serial [id number]) implantation and venography non-ischemic cardiomyopathy with systolic heart failure and EF 10-15%, class III HF placement for known inschemic cardiomyopathy. Procedure was performed by Milagros Mohan MD without complications. CXR the next day no pneumothorax. Device intergoation: uneventful. D/C instruction and follow up on discharge plan. Status at Discharge Functional status at discharge: independent ambulation Time Spent with Patient Time attestation: Total time spent providing and/or coordinating discharge services: Discharge coordination time: Greater than 30 minutes Physical Exam Vital Signs: Vital Signs: Last Vital Signs Temp 97.6 F 08/17/20 07:37 Pulse 61 08/17/20 07:39 Resp 18 08/17/20 07:37 BP 104/57 L 08/17/20 07:37 Pulse Ox 96 08/17/20 07:37 Body Mass Index 32.1 General: AO X 3, no acute distress Resp: CTA bilateral CVS: S1,S2,RRR GI: +BS, NT, no distention Skin: No rash, left chest pace maker site, no hematoma, dressing in place Neuro: motor grossly intact Psych: appropriate affect DS: Data Data Completed and Pending Labs on day of discharge: Laboratory Results - last 24 hr 08/16/20 08/16/20 08/16/20 10:17 10:26 10:26 WBC 7.2 RBC 4.53 L Hgb 13.6 L Hct 41.5 L MCV 91.6 MCH 30.0 MCHC 32.8 RDW 13.5 Plt Count 129 L MPV 12.5 H Immature Gran % (Auto) 0.3 Neut % (Auto) 75.6 H Lymph % (Auto) 12.8 L [place] % (Auto) 8.8 Eos % (Auto) 2.1 Baso % (Auto) 0.4 Lymph # (Auto) 0.9 L [place] # (Auto) 0.6 Eos # (Auto) 0.2 Baso # (Auto) 0.0 Abs Immat Gran (auto) 0.02 Absolute Neuts (auto) 5.4 Absolute Nucleated RBC 0.000 Nucleated RBC % (auto) 0.0 Smear Tech's Comments PT 16.7 H D INR 1.4 H Sodium Potassium Chloride Carbon Dioxide Anion Gap BUN Creatinine Estim Creat Clear Calc Estimated GFR Random Glucose Calcium COVID-19 (GAYLE) Negative COVID-19 Clin Com See Note Blood Type Antibody Screen 08/16/20 08/17/20 08/17/20 10:26 05:15 05:15 WBC 9.2 RBC 4.17 L Hgb 12.5 L Hct 38.3 L MCV 91.8 MCH 30.0 MCHC 32.6 RDW 13.7 Plt Count 121 L MPV 12.9 H Immature Gran % (Auto) 0.2 Neut % (Auto) 85.7 H Lymph % (Auto) 6.4 L [place] % (Auto) 7.7 Eos % (Auto) 0.0 Baso % (Auto) 0.0 Lymph # (Auto) 0.6 L [place] # (Auto) 0.7 Eos # (Auto) 0.0 Baso # (Auto) 0.0 Abs Immat Gran (auto) 0.02 Absolute Neuts (auto) 7.9 Absolute Nucleated RBC 0.000 Nucleated RBC % (auto) 0.0 Smear Tech's Comments VERIFIED PT 17.9 H INR 1.5 H Sodium Potassium Chloride Carbon Dioxide Anion Gap BUN Creatinine Estim Creat Clear Calc Estimated GFR Random Glucose Calcium COVID-19 (GAYLE) COVID-19 Clin Com Blood Type A Positive Antibody Screen NEGATIVE 08/17/20 05:15 WBC RBC Hgb Hct MCV MCH MCHC RDW Plt Count MPV Immature Gran % (Auto) Neut % (Auto) Lymph % (Auto) [place] % (Auto) Eos % (Auto) Baso % (Auto) Lymph # (Auto) [place] # (Auto) Eos # (Auto) Baso # (Auto) Abs Immat Gran (auto) Absolute Neuts (auto) Absolute Nucleated RBC Nucleated RBC % (auto) Smear Tech's Comments PT INR Sodium 140 Potassium 4.7 Chloride 106 Carbon Dioxide 25 Anion Gap 14 BUN 25 H Creatinine 1.24 Estim Creat Clear Calc 50.8 Estimated GFR 56 Random Glucose 179 H Calcium 8.6 COVID-19 (GAYLE) COVID-19 Clin Com Blood Type Antibody Screen Preliminary micro results at discharge 08/16/20 Unknown Urine Culture - Preliminary Urine clean catch - Clean Catch Midstream No growth to date. Discharge Plan Discharge Anticipated Discharge Date/Time: 08/17/20 09:31 Patient Disposition: Home, Self-Care Referrals: Dagoberto Childs, SENIOR C SOFTWARE [email or web address]-BC [Primary Care Provider] - Discharge Medications: Continued fluticasone furoate-vilanterol [Breo Ellipta] 100-25 mcg/dose blister with device 1 ea inhalation DAILY Qty: 180 RF: 5 lisinopril 5 mg tablet 5 mg PO DAILY Qty: 90 RF: 1 furosemide 20 mg tablet See Rx Instructions PO DAILY 90 Days Qty: 145 RF: 1 furosemide 20 mg Tablet 40 mg PO Q2D RF: 0 atorvastatin 40 mg tablet 40 mg PO DAILY RF: 0 furosemide 20 mg tablet 20 mg PO Q2D RF: 0 warfarin 2.5 mg tablet 2.5 mg PO Q2D RF: 0 trazodone 100 mg tablet 100 mg PO BEDTIME PRN (Reason: Insomnia) RF: 0 warfarin 2 mg tablet 2 mg PO Q2D RF: 0 metoprolol tartrate 50 mg tablet 50 mg PO DAILY RF: 0 albuterol sulfate [ProAir HFA] 90 mcg/actuation HFA aerosol inhaler 2 puff inhalation Q6H PRN (Reason: Shortness Of Breath) RF: 0 Discharge Orders: Discharge Order (Routine); Ordered 08/17/20 Ordered By: Justin Holt Diet: advance to usual diet Activity on Discharge: As tolerated Stand Alone Forms: Patient Portal Discharge page Care Plan Goals: See below Health Concerns: see below Plan of Treatment: Site Care/Wound: Leave dressing on for 5 days. Do not shower or get the area wet for 5 days. Once you remove the dressing, there will be steri-strips in place. Do not peel off, they will fall off. Hand washing is a must when caring for your incision to prevent infections. Avoid touching your incision or using lotions, creams, or ointments until it is healed (2-4 weeks). Activity: Limit the movement of your arm on the same side as the pacemaker but do not stop moving it. Avoid stretching that arm over your head or shoulder-level or lift or carry anything heavier than 5 pounds with the left arm for 6 weeks Avoid golfing, swimming, tennis, bowling, shoveling snow or mowing the lawn for 6 weeks Follow-up instructions: You have scheduled follow-up at [address] [place] [address] on August 31, 2020 at 10:20 AM. Please call [phone] for the [place] office if any questions Please keep the identification card for the device with you, it will be useful when you go through security during flights. Please plug in your home monitor and leave it at your bedside. Call device company if you need assistance plugging in the monitor. Please tell all your healthcare providers you have a pacemaker, especially before procedures or before a MRI. Call your doctor if you have any redness, swelling, pus from incision site, fever of 101 degrees. If you have any bleeding from the incision site, lie down and put pressure on the incision site for 30 minutes. If this does not resolve, please get transportation to the closest hospital but do not drive yourself.
--- NOTE | 2020-08-17 10:25 | MHC.CM.PN ---
imm 08/17 MALE DX S/P ICD IMPLANT IS DC TO HOME SELF CARE TODAY. FAMILY IS PROVIDING TRANSPORTATION.
--- NOTE | 2020-08-17 14:28 | HO.POSTANES ---
Post Anesthesia Evaluation Post Anesthesia Evaluation Vital Signs: Vital Signs Temp Pulse Resp BP Pulse Ox 08/17/20 07:39 61 08/17/20 07:37 97.6 F 63 18 104/57 L 96 08/17/20 03:49 97.7 F 58 18 165/69 H 95 Anesthesia: Monitored Mental Status: Awake Pain Control: Satisfactory Nausea/Vomiting: None Hydration: Adequate Anesthesia-Related Issues: No Anes. Related Issues
== END 2020-08-17 12:12 | disposition home or self-care (01) ==
LOC: HO.SSSA 14:29 → HO.IMC 15:02
PROVIDERS: Internal Medicine Cardiovascular Disease; Admitting Provider Internal Medicine; PCP Nurse Practitioner Family; Visit Provider Internal Medicine
PROC: (CPT 33249; principal; 2020-08-16 11:00)
DX: I42.8 Other cardiomyopathies (principal); I48.3 Typical atrial flutter; I25.2 Old myocardial infarction; I48.20 Chronic atrial fibrillation, unspecified; R30.0 Dysuria; I11.0 Hypertensive heart disease with heart failure; I50.22 Chronic systolic (congestive) heart failure; Z87.891 Personal history of nicotine dependence; Z20.822 Contact with and (suspected) exposure to COVID-19; Z79.01 Long term (current) use of anticoagulants; Z79.899 Other long term (current) drug therapy
CPT/HCPCS: 33249; 36415; 71045; 71046; 80048; 85025; 85610; 86850; 86900; 87086; 87635; 94640; 96365; 99219; 99285; C1722; C1892; J0690; J1100; J2250; J3010; J3370; Q9967

== ENCOUNTER 2020-08-25 07:32 | Outpatient (REF) | payer MEDICARE, MEDICAID, OTHER, SELFPAY ==
[2020-08-25 12:18] LABS: INTERNATIONAL NORM RATIO 1.7 (0.9-1.1); Prothrombin Time 19.8 SEC (10.8-13.0)
[2020-08-25 15:04] LABS: Glucose Urine UA NEG (NEG); Leukocyte Esterase Urine 2+ (NEG); Nitrite Urine NEG (NEG); PH 5.5 (5.0-8.0); UACC Culture Trigger YES; Urine Blood TRACE (NEG); Urine Ketones NEG (NEG); Urine Protein NEG (NEG-TRACE)
[2020-08-25 15:05] LABS: Appearance Urine CLOUDY; Color Urine YELLOW
[2020-08-25 15:15] LABS: Bacteria Urine 2+ /LPF; WBC Urine TNTC /HPF (0-4)
== END 2020-08-25 07:33 | disposition home or self-care (01) ==
LOC: HO.LHD 07:32
PROVIDERS: Visit Provider Nurse Practitioner Family
DX: R30.0 Dysuria (principal); I48.91 Unspecified atrial fibrillation; Z79.01 Long term (current) use of anticoagulants
CPT/HCPCS: 36415; 81001; 81003; 85610; 87086; 87088; 87186

== ENCOUNTER 2020-09-08 03:19 | Outpatient (REF) | payer MEDICARE, OTHER, SELFPAY ==
[2020-09-08 10:57] LABS: INTERNATIONAL NORM RATIO 1.8 (0.9-1.1); Prothrombin Time 21.6 SEC (10.8-13.0)
== END 2020-09-08 03:20 | disposition home or self-care (01) ==
LOC: HO.LHD 03:19
PROVIDERS: Visit Provider Nurse Practitioner Family
DX: Z79.01 Long term (current) use of anticoagulants (principal)
CPT/HCPCS: 36415; 85610

== ENCOUNTER 2020-09-15 00:17 | Outpatient (REF) | payer MEDICARE, MEDICAID, OTHER, SELFPAY ==
[2020-09-15 11:04] LABS: INTERNATIONAL NORM RATIO 1.8 (0.9-1.1)
== END 2020-09-15 00:18 | disposition home or self-care (01) ==
LOC: HO.LHD 00:17
PROVIDERS: Visit Provider Nurse Practitioner Family
DX: Z79.01 Long term (current) use of anticoagulants (principal)
CPT/HCPCS: 36415; 85610

== ENCOUNTER 2020-09-22 01:05 | Outpatient (REF) | payer MEDICARE, MEDICAID, OTHER, SELFPAY ==
[2020-09-22 10:48] LABS: INTERNATIONAL NORM RATIO 2.1 (0.9-1.1); Prothrombin Time 24.9 SEC (10.8-13.0)
== END 2020-09-22 01:06 | disposition home or self-care (01) ==
LOC: HO.LHD 01:05
PROVIDERS: Visit Provider Nurse Practitioner Family
DX: Z79.01 Long term (current) use of anticoagulants (principal)
CPT/HCPCS: 36415; 85610

== ENCOUNTER 2020-10-06 00:22 | Outpatient (REF) | payer MEDICARE, MEDICAID, OTHER, SELFPAY ==
[2020-10-06 10:59] LABS: INTERNATIONAL NORM RATIO 2.6 (0.9-1.1); Prothrombin Time 30.9 SEC (10.8-13.0)
== END 2020-10-06 00:23 | disposition home or self-care (01) ==
LOC: HO.LHD 00:22
PROVIDERS: Visit Provider Nurse Practitioner Family
DX: I42.8 Other cardiomyopathies (principal); I48.91 Unspecified atrial fibrillation; I48.92 Unspecified atrial flutter; I47.1 Supraventricular tachycardia; Z79.01 Long term (current) use of anticoagulants
CPT/HCPCS: 36415; 85610; 99212

== ENCOUNTER 2020-10-20 00:16 | Outpatient (REF) | payer MEDICARE, MEDICAID, OTHER, SELFPAY ==
[2020-10-20 12:14] LABS: INTERNATIONAL NORM RATIO 1.8 (0.9-1.1); Prothrombin Time 21.9 SEC (10.8-13.0)
== END 2020-10-20 00:17 | disposition home or self-care (01) ==
LOC: HO.LHD 00:16
PROVIDERS: Visit Provider Nurse Practitioner Family
DX: Z79.01 Long term (current) use of anticoagulants (principal)
CPT/HCPCS: 36415; 85610

== ENCOUNTER 2020-10-25 10:50 | Outpatient (REF) | payer MEDICARE, MEDICAID, OTHER, SELFPAY ==
[2020-10-25 13:44] LABS: MANUAL DIFF FLAG NO
[2020-10-25 13:51] LABS: Basophils Percent Auto 0.3 % (0-2); Eosinophils Absolute Auto 0.2 X10*3/uL (0.0-0.4); Eosinophils Percent Auto 2.3 % (0-4); Hematocrit 41.1 % (42-52); Hemoglobin 13.2 g/dl (14.0-18.0); Imm Gran Abs Auto 0.02 X10*3/uL (0.00-0.03); Imm Gran Pct Auto 0.3 % (0.0-0.4); Lymphocytes Absolute Auto 1.3 X10*3/uL (1.2-4.9); Lymphocytes Percent Auto 19.3 % (20-40); Mean Corpuscular HGB Conc 32.1 g/dl (31.0-36.0); Mean Corpuscular Hemoglobin 29.1 pg (27.0-33.0); Mean Corpuscular Volume 90.5 fL (80-98); Monocytes Absolute Auto 0.6 X10*3/uL (0.1-1.2); Monocytes Percent Auto 9.1 % (2-11); Neutrophils Absolute Auto 4.8 X10*3/uL (2.0-8.3); Neutrophils Percent Auto 68.7 % (45-73); Platelet Count 159 X10*3/uL (160-400); Red Blood Count 4.54 X10*6/uL (4.60-5.80); Red Cell Distribution Width 13.9 % (11.0-16.0)
[2020-10-25 13:56] LABS: INTERNATIONAL NORM RATIO 1.9 (0.9-1.1); Prothrombin Time 23.1 SEC (10.8-13.0)
[2020-10-25 14:12] LABS: Alanine Aminotransferase 25 U/L (0-40); Albumin Level 4.1 g/dL (3.5-5.0); Alkaline Phosphatase 61 U/L (39-117); Anion Gap 13 (12-20); Aspartate Amino Transferase 16 U/L (5-37); Bilirubin Total 0.6 mg/dL (0.0-1.0); Blood Urea Nitrogen 26 mg/dL (9-16); Calcium 8.9 mg/dL (8.4-10.2); Carbon Dioxide 25 mmol/L (22-29); Chloride 108 mmol/L (96-108); Cholesterol 125 mg/dL; Estimated Glomerular Filt Rate 58; Glucose Fasting 139 mg/dL (60-99); HDL Cholesterol 29 mg/dL; Iron 85 mcg/dL (45-160); LDL Cholesterol Calculated 64 mg/dl; Percent Iron Saturation 25 % (15-50); Potassium 4.3 mmol/L (3.3-5.1); Sodium 142 mmol/L (135-145); Total Iron Binding Capacity 336 mcg/dL (228-428); Total Protein 6.9 g/dL (6.5-8.0); Triglycerides 162 mg/dL; Unsaturated Iron Binding 251 ug/dL
[2020-10-25 14:33] LABS: Vitamin B12 256 pg/mL (200-900)
[2020-10-25 14:34] LABS: TSH reflex Free T4 0.69 uIU/mL (0.32-4.0)
[2020-10-25 14:42] LABS: Ferritin 142 ng/mL (20-250)
== END 2020-10-25 10:51 | disposition home or self-care (01) ==
LOC: HO.HMGCLDS 10:50
PROVIDERS: PCP Nurse Practitioner Family; Visit Provider Nurse Practitioner Family
DX: I10 Essential (primary) hypertension (principal); R53.83 Other fatigue; I48.91 Unspecified atrial fibrillation; I48.92 Unspecified atrial flutter; I49.9 Cardiac arrhythmia, unspecified
CPT/HCPCS: 36415; 80053; 80061; 82607; 82728; 83540; 84443; 85025; 85610

== ENCOUNTER 2020-10-27 00:20 | Outpatient (REF) | payer MEDICARE, MEDICAID, OTHER, SELFPAY ==
[2020-10-27 11:01] LABS: INTERNATIONAL NORM RATIO 1.7 (0.9-1.1); Prothrombin Time 20.3 SEC (10.8-13.0)
== END 2020-10-27 00:21 | disposition home or self-care (01) ==
LOC: HO.LHD 00:20
PROVIDERS: Visit Provider Nurse Practitioner Family
DX: Z79.01 Long term (current) use of anticoagulants (principal)
CPT/HCPCS: 36415; 85610

== ENCOUNTER 2020-11-03 01:27 | Outpatient (REF) | payer MEDICARE, OTHER, SELFPAY ==
[2020-11-03 11:22] LABS: INTERNATIONAL NORM RATIO 2.8 (0.9-1.1); Prothrombin Time 34.2 SEC (10.8-13.0)
== END 2020-11-03 01:28 | disposition home or self-care (01) ==
LOC: HO.LHD 01:27
PROVIDERS: Visit Provider Nurse Practitioner Family
DX: Z79.01 Long term (current) use of anticoagulants (principal)
CPT/HCPCS: 36415; 85610

== ENCOUNTER 2020-11-09 07:40 | Outpatient (REF) | payer MEDICARE, MEDICAID, OTHER, SELFPAY ==
[2020-11-09 11:22] LABS: INTERNATIONAL NORM RATIO 2.4 (0.9-1.1); Prothrombin Time 28.2 SEC (10.8-13.0)
== END 2020-11-09 07:41 | disposition home or self-care (01) ==
LOC: HO.LHD 07:40
PROVIDERS: Visit Provider Nurse Practitioner Family
DX: Z79.01 Long term (current) use of anticoagulants (principal)
CPT/HCPCS: 36415; 85610

== ENCOUNTER → 2020-11-10 13:37 | Outpatient (BNVA) | payer MEDICARE, MEDICAID, OTHER, SELFPAY | PROVIDERS: PCP Nurse Practitioner Family; Referring Provider Nurse Practitioner Family; Visit Provider Internal Medicine Cardiovascular Disease | DX: I42.8 Other cardiomyopathies (principal); I48.92 Unspecified atrial flutter | CPT/HCPCS: 99212 ==

== ENCOUNTER 2020-11-16 01:12 | Outpatient (REF) | payer MEDICARE, MEDICAID, OTHER, SELFPAY ==
[2020-11-16 11:26] LABS: Prothrombin Time 24.3 SEC (10.8-13.0)
== END 2020-11-16 01:13 | disposition home or self-care (01) ==
LOC: HO.LHD 01:12
PROVIDERS: Visit Provider Nurse Practitioner Family
DX: Z79.01 Long term (current) use of anticoagulants (principal)
CPT/HCPCS: 36415; 85610

== ENCOUNTER 2020-11-24 01:17 | Outpatient (REF) | payer MEDICARE, OTHER, SELFPAY ==
[2020-11-24 10:38] LABS: INTERNATIONAL NORM RATIO 2.6 (0.9-1.1); Prothrombin Time 30.6 SEC (10.8-13.0)
== END 2020-11-24 01:18 | disposition home or self-care (01) ==
LOC: HO.LHD 01:17
PROVIDERS: Visit Provider Nurse Practitioner Family
DX: Z79.01 Long term (current) use of anticoagulants (principal)
CPT/HCPCS: 36415; 85610

== ENCOUNTER 2020-12-07 07:23 | Outpatient (REF) | payer MEDICARE, OTHER, SELFPAY ==
[2020-12-07 10:55] LABS: INTERNATIONAL NORM RATIO 2.5 (0.9-1.1); Prothrombin Time 29.5 SEC (10.8-13.0)
== END 2020-12-07 07:24 | disposition home or self-care (01) ==
LOC: HO.LHD 07:23
PROVIDERS: Visit Provider Nurse Practitioner Family
DX: Z79.01 Long term (current) use of anticoagulants (principal)
CPT/HCPCS: 36415; 85610

== ENCOUNTER 2020-12-21 | Outpatient (REF) | payer MEDICARE, OTHER, SELFPAY ==
[2020-12-21 09:48] LABS: INTERNATIONAL NORM RATIO 2.2 (0.9-1.1); Prothrombin Time 25.3 SEC (9.9-13.0)
== END 2020-12-21 00:01 | disposition home or self-care (01) ==
LOC: HO.HSHHMC
PROVIDERS: Visit Provider Nurse Practitioner Family
DX: Z79.01 Long term (current) use of anticoagulants (principal)
CPT/HCPCS: 36415; 85610

== ENCOUNTER 2021-01-06 07:15 | Outpatient (REF) | payer MEDICARE, OTHER, SELFPAY ==
[2021-01-06 10:45] LABS: INTERNATIONAL NORM RATIO 2.2 (0.9-1.1); Prothrombin Time 25.1 SEC (9.9-13.0)
== END 2021-01-06 07:16 | disposition home or self-care (01) ==
LOC: HO.LHD 07:15
PROVIDERS: Visit Provider Nurse Practitioner Family
DX: Z79.01 Long term (current) use of anticoagulants (principal)
CPT/HCPCS: 36415; 85610

== ENCOUNTER 2021-01-20 05:57 | Outpatient (REF) | payer MEDICARE, OTHER, SELFPAY ==
[2021-01-20 11:04] LABS: INTERNATIONAL NORM RATIO 1.8 (0.9-1.1); Prothrombin Time 20.4 SEC (9.9-13.0)
[2021-01-20 11:21] LABS: Alanine Aminotransferase 25 U/L (0-40); Albumin Level 4.1 g/dL (3.5-5.0); Alkaline Phosphatase 63 U/L (39-117); Anion Gap 14 (12-20); Aspartate Amino Transferase 19 U/L (5-37); Bilirubin Total 0.5 mg/dL (0.0-1.0); Blood Urea Nitrogen 35 mg/dL (9-16); Calcium 9.2 mg/dL (8.4-10.2); Carbon Dioxide 24 mmol/L (22-29); Chloride 108 mmol/L (96-108); Cholesterol 119 mg/dL; Estimated Glomerular Filt Rate 49; Glucose Fasting 119 mg/dL (60-99); HDL Cholesterol 32 mg/dL; LDL Cholesterol Calculated 67 mg/dl; Potassium 4.4 mmol/L (3.3-5.1); Sodium 142 mmol/L (135-145); Triglycerides 103 mg/dL
[2021-01-20 11:43] LABS: TSH reflex Free T4 0.64 uIU/mL (0.32-4.0)
== END 2021-01-20 05:58 | disposition home or self-care (01) ==
LOC: HO.LHD 05:57
PROVIDERS: Visit Provider Nurse Practitioner Family
DX: Z79.01 Long term (current) use of anticoagulants (principal)
CPT/HCPCS: 36415; 80053; 80061; 84443; 85610

== ENCOUNTER 2021-02-07 00:26 | Outpatient (REF) | payer MEDICARE, OTHER, SELFPAY ==
[2021-02-07 10:50] LABS: INTERNATIONAL NORM RATIO 2.3 (0.9-1.1); Prothrombin Time 26.9 SEC (9.9-13.0)
== END 2021-02-07 00:27 | disposition home or self-care (01) ==
LOC: HO.LHD 00:26
PROVIDERS: Visit Provider Nurse Practitioner Family
DX: Z79.01 Long term (current) use of anticoagulants (principal)
CPT/HCPCS: 36415; 85610

== ENCOUNTER 2021-02-23 07:08 | Outpatient (REF) | payer MEDICARE, OTHER, SELFPAY ==
[2021-02-23 11:05] LABS: INTERNATIONAL NORM RATIO 2.2 (0.9-1.1); Prothrombin Time 25.2 SEC (9.9-13.0)
== END 2021-02-23 07:09 | disposition home or self-care (01) ==
LOC: HO.LHD 07:08
PROVIDERS: Visit Provider Nurse Practitioner Family
DX: Z79.01 Long term (current) use of anticoagulants (principal)
CPT/HCPCS: 36415; 85610

== ENCOUNTER 2021-03-17 13:29 | Outpatient (REF) | payer MEDICARE, OTHER, SELFPAY ==
[2021-03-16 10:36] LABS: INTERNATIONAL NORM RATIO 2.1 (0.9-1.1); Prothrombin Time 24.5 SEC (9.9-13.0)
== END 2021-03-17 13:30 | disposition home or self-care (01) ==
LOC: HO.LHD 13:29
PROVIDERS: Visit Provider Nurse Practitioner Family
DX: Z79.01 Long term (current) use of anticoagulants (principal)
CPT/HCPCS: 36415; 85610

== ENCOUNTER 2021-04-06 11:22 | Outpatient (REF) | payer MEDICARE, OTHER, SELFPAY ==
[2021-04-06 11:06] LABS: INTERNATIONAL NORM RATIO 2.2 (0.9-1.1)
== END 2021-04-06 11:23 | disposition home or self-care (01) ==
LOC: HO.LHD 11:22
PROVIDERS: Visit Provider Nurse Practitioner Family
DX: Z79.01 Long term (current) use of anticoagulants (principal)
CPT/HCPCS: 36415; 85610

== ENCOUNTER → 2021-04-13 10:55 | Outpatient (BNVA) | payer MEDICARE, OTHER, SELFPAY | PROVIDERS: PCP Nurse Practitioner Family; Referring Provider Nurse Practitioner Family; Visit Provider Internal Medicine Cardiovascular Disease | DX: I48.91 Unspecified atrial fibrillation (principal); I48.92 Unspecified atrial flutter; I42.8 Other cardiomyopathies | CPT/HCPCS: 99212 ==

== ENCOUNTER 2021-04-27 10:55 | Outpatient (REF) | payer MEDICARE, OTHER, SELFPAY ==
[2021-04-27 10:15] LABS: INTERNATIONAL NORM RATIO 1.9 (0.9-1.1); Prothrombin Time 22.2 SEC (9.9-13.0)
== END 2021-04-27 10:56 | disposition home or self-care (01) ==
LOC: HO.LHD 10:55
PROVIDERS: Visit Provider Nurse Practitioner Family
DX: I48.91 Unspecified atrial fibrillation (principal); I49.9 Cardiac arrhythmia, unspecified; Z79.01 Long term (current) use of anticoagulants
CPT/HCPCS: 36415; 85610

== ENCOUNTER 2021-05-18 12:31 | Outpatient (REF) | payer MEDICARE, OTHER, SELFPAY ==
[2021-05-18 10:58] LABS: INTERNATIONAL NORM RATIO 2.3 (0.9-1.1); Prothrombin Time 26.5 SEC (9.9-13.0)
== END 2021-05-18 12:32 | disposition home or self-care (01) ==
LOC: HO.LHD 12:31
PROVIDERS: Visit Provider Nurse Practitioner Family
DX: Z79.01 Long term (current) use of anticoagulants (principal)
CPT/HCPCS: 36415; 85610

== ENCOUNTER 2021-06-08 10:46 | Outpatient (REF) | payer MEDICARE, OTHER, SELFPAY ==
[2021-06-08 10:28] LABS: INTERNATIONAL NORM RATIO 2.1 (0.9-1.1); Prothrombin Time 24.4 SEC (9.9-13.0)
== END 2021-06-08 10:47 | disposition home or self-care (01) ==
LOC: HO.LHD 10:46
PROVIDERS: Visit Provider Nurse Practitioner Family
DX: Z79.01 Long term (current) use of anticoagulants (principal)
CPT/HCPCS: 36415; 85610

== ENCOUNTER → 2021-06-15 08:27 | Outpatient (REF) | payer MEDICARE, OTHER, SELFPAY ==
--- NOTE | 2021-06-15 08:30 | CA_ITS ---
Transthoracic Echocardiogram Patient (Last, First, Middle): Eder Farah, Gender: Male Date of : 1940 Age: 81 Procedure Date: 06/15/2021 Procedure Type: Transthoracic Echocardiogram Location: OP Height: 165.1 cm Weight: 92.53 kg BSA: 1.99 m2 Heart Rate: bpm BP: 122 / 70 mmHg Veterinarian Helper: Referring MD: Bubba Mccullough MD Airconditioning Plant Operator: Brady Newton MD Symptoms: I42.8 - Other cardiomyopathies Study Quality: Fair ECG Rhythm: Ventriculary paced rhythm Conclusions: - 1. Mildly dilated left ventricle with severe LV systolic dysfunction with LVEF of 15-20% next 2. Severe left atrial enlargement 3. Mild mitral and tricuspid regurgitation 4. Normal RV systolic pressure 5. Trivial pericardial effusion 6. Possible mild aortic stenosis Findings Left Ventricle Mildly increased left ventricular cavity size. There is normal left ventricular wall thickness. The left ventricular systolic function is severely decreased. The visually estimated ejection fraction is between 15 20%. There is severe global hypokinesis. Diastolic function is indeterminate on the basis of available data. Right Ventricle Normal right ventricular cavity size and systolic function. There is an ICD wire seen in the right ventricle. Atria The left atrium is severely dilated. There is no evidence of interatrial shunt. The right atrium is moderately dilated. Aortic Valve The aortic valve structure and function is likely normal. There is mild thickening of the aortic valve. There is mild aortic valve stenosis. There is no aortic valve regurgitation. Mitral Valve There is mild anterior and posterior mitral leaflet thickening. The posterior mitral leaflet has restricted mobility. There is mild mitral valve regurgitation. There is no mitral valve stenosis. Pulmonic Valve The pulmonic valve was not well visualized. Tricuspid Valve Normal tricuspid valve structure. There is mild tricuspid valve regurgitation. The right ventricular systolic pressure is normal. The right ventricular systolic pressure is 28 mmHg. Normal right atrial pressure. Great Vessels All visible segments of the aorta are normal in size. The pulmonary artery was not well visualized. Venous The inferior vena cava is normal in size and collapses greater than 50% with inspiration. Pericardium/Pleural There is a trivial pericardial effusion. Prior Study Comparison Changes noted compared to prior study dated: 07/02/2020. RV systolic pressure measured on this study are within normal limits, could be underestimated Measurements 2D Linear Measurements IVSd: 1.08 0.6-0.9/0.6-1.0 cm LVIDd: 5.77 3.9-5.3/4.2-5.9 cm LVIDd Index: 2.90 2.4-3.2/2.2-3.1 cm/m2 LVIDs: 5.16 2.0-3.6 cm LVPWd: 1.09 0.7-1.1 cm Ao Root: 2.70 2.1-3.5 cm LA Diam: 6.00 2.7-3.8/3.0-4.0 cm LAIDs Index: 3.02 1.5-2.3 cm/m2 LV Mass: 320.80 67-162/88-224 g LV Mass Index: 161.21 43-95/49-115 g/m2 LVOT Diam: 2.30 3.0+(-)1.3 cm 2D Systolic Function EF 4C: 19.10 >55% EF 2C: 24.30 >55% EF BiP: 18.00 >55% Mitral Valve MV Pk E: 0.93 MV Decel Time: 176.00 E'Lateral: 8.49 E'Medial: 6.31 E/E' Med: 14.70 E/E' Lat: 11.00 PHT: 51.00 MVA PHT: 4.31 Decel Cass: 5.29 Aortic Valve AoV Pk Hieu: 1.68 AoV Mn Hieu: 1.06 AoV VTI: 0.36 AoV Pk Grad: 11.00 Aov Mn Grad: 6.00 QUAN Cont.VTI: 1.83 LVOT LVOT Pk Hieu: 0.76 LVOT Mn Hieu: 0.46 LVOT VTI: 0.16 LVOT Pk Grad: 2.00 LVOT Mn Grad: 1.00 LVOT Diam: 2.30 LVOT Area: 4.15 Diastolic Function MV Pk E: 0.93 E'Medial: 6.31 E/E' Med: 14.70 E' Laterial: 8.49 E/E' Lat: 11.00 Right Ventricle TAPSE (mm): 21.00 TVS' Hieu: 9.00 Tricuspid Valve TR Pk Hieu: 2.51 TR Pk Grad: 25.00 RA Press: 3.00 RVSP: 28.00 Great Vessels Aorta Ao Root-2D: 2.70 2.0-3.7 cm Pulmonary Valve PV Pk Hieu: 0.95 Peak PV Grad: 4.00 Updated in Other Vendor System with Status of Final Brady Newton MD electronically signed on 06/15/2021 1:31:12 PM with status of Final
== END ==
LOC: HO.CARD 08:27
PROVIDERS: PCP Nurse Practitioner Family; Visit Provider Internal Medicine Cardiovascular Disease
DX: I42.8 Other cardiomyopathies (principal)
CPT/HCPCS: 93306

== ENCOUNTER 2021-06-22 05:48 | Outpatient (REF) | payer MEDICARE, OTHER, SELFPAY ==
[2021-06-22 11:53] LABS: INTERNATIONAL NORM RATIO 1.9 (0.9-1.1); Prothrombin Time 21.9 SEC (9.9-13.0)
[2021-06-22 12:48] LABS: Alanine Aminotransferase 31 U/L (0-40); Albumin Level 4.2 g/dL (3.5-5.0); Alkaline Phosphatase 58 U/L (39-117); Anion Gap 11 (12-20); Aspartate Amino Transferase 21 U/L (5-37); Bilirubin Total 0.7 mg/dL (0.0-1.0); Blood Urea Nitrogen 29 mg/dL (9-16); Calcium 9.4 mg/dL (8.4-10.2); Carbon Dioxide 26 mmol/L (22-29); Chloride 109 mmol/L (96-108); Cholesterol 121 mg/dL; Estimated Glomerular Filt Rate 51; Glucose Fasting 131 mg/dL (60-99); HDL Cholesterol 31 mg/dL; LDL Cholesterol Calculated 61 mg/dl; Potassium 4.7 mmol/L (3.3-5.1); Sodium 141 mmol/L (135-145); Total Protein 7.3 g/dL (6.5-8.0); Triglycerides 145 mg/dL
[2021-06-22 13:12] LABS: TSH reflex Free T4 0.33 uIU/mL (0.32-4.0)
== END 2021-06-22 05:49 | disposition home or self-care (01) ==
LOC: HO.LHD 05:48
PROVIDERS: Visit Provider Nurse Practitioner Family
DX: I49.9 Cardiac arrhythmia, unspecified (principal); I10 Essential (primary) hypertension; Z79.01 Long term (current) use of anticoagulants
CPT/HCPCS: 36415; 80053; 80061; 84443; 85610

== ENCOUNTER 2021-07-06 12:00 | Outpatient (REF) | payer MEDICARE, OTHER, SELFPAY ==
[2021-07-06 12:37] LABS: INTERNATIONAL NORM RATIO 2.6 (0.9-1.1); Prothrombin Time 29.8 SEC (9.9-13.0)
== END 2021-07-06 12:01 | disposition home or self-care (01) ==
LOC: HO.LHD 12:00
PROVIDERS: Visit Provider Nurse Practitioner Family
DX: Z79.01 Long term (current) use of anticoagulants (principal)
CPT/HCPCS: 36415; 85610

== ENCOUNTER 2021-07-27 12:59 | Outpatient (REF) | payer MEDICARE, OTHER, SELFPAY | END 2021-07-27 13:00 | disposition home or self-care (01) | LOC: HO.LHD 12:59 | PROVIDERS: Visit Provider Nurse Practitioner Family | DX: Z79.01 Long term (current) use of anticoagulants (principal) | CPT/HCPCS: 36415; 85610 ==

== ENCOUNTER 2021-08-11 11:20 | Outpatient (REF) | payer MEDICARE, OTHER, SELFPAY ==
[2021-08-11 12:02] LABS: INTERNATIONAL NORM RATIO 2.1 (0.9-1.1); Prothrombin Time 23.9 SEC (9.9-13.0)
== END 2021-08-11 11:21 | disposition home or self-care (01) ==
LOC: HO.LHD 11:20
PROVIDERS: Visit Provider Nurse Practitioner Family
DX: Z79.01 Long term (current) use of anticoagulants (principal)
CPT/HCPCS: 36415; 85610

== ENCOUNTER 2021-08-24 12:14 | Outpatient (REF) | payer MEDICARE, OTHER, SELFPAY ==
[2021-08-24 12:58] LABS: INTERNATIONAL NORM RATIO 1.7 (0.9-1.1)
== END 2021-08-24 12:15 | disposition home or self-care (01) ==
LOC: HO.LHD 12:14
PROVIDERS: Visit Provider Nurse Practitioner Family
DX: Z79.01 Long term (current) use of anticoagulants (principal)
CPT/HCPCS: 36415; 85610

== ENCOUNTER 2021-09-07 11:00 | Outpatient (REF) | payer MEDICARE, OTHER, SELFPAY ==
[2021-09-07 11:05] LABS: INTERNATIONAL NORM RATIO 1.9 (0.9-1.1); Prothrombin Time 21.3 SEC (9.9-13.0)
== END 2021-09-07 11:01 | disposition home or self-care (01) ==
LOC: HO.LHD 11:00
PROVIDERS: Visit Provider Nurse Practitioner Family
DX: Z79.01 Long term (current) use of anticoagulants (principal)
CPT/HCPCS: 36415; 85610

== ENCOUNTER 2021-09-21 10:31 | Outpatient (REF) | payer MEDICARE, OTHER, SELFPAY ==
[2021-09-21 10:35] LABS: INTERNATIONAL NORM RATIO 2.8 (0.9-1.1)
== END 2021-09-21 10:32 | disposition home or self-care (01) ==
LOC: HO.LHD 10:31
PROVIDERS: Visit Provider Nurse Practitioner Family
DX: Z79.01 Long term (current) use of anticoagulants (principal)
CPT/HCPCS: 36415; 85610

== ENCOUNTER 2021-10-05 12:58 | Outpatient (REF) | payer MEDICARE, OTHER, SELFPAY ==
[2021-10-05 12:31] LABS: INTERNATIONAL NORM RATIO 2.4 (0.9-1.1); Prothrombin Time 28.2 SEC (9.9-13.0)
== END 2021-10-05 12:59 | disposition home or self-care (01) ==
LOC: HO.LHD 12:58
PROVIDERS: Visit Provider Nurse Practitioner Family
DX: Z79.01 Long term (current) use of anticoagulants (principal)
CPT/HCPCS: 36415; 85610

== ENCOUNTER 2021-10-19 12:31 | Outpatient (REF) | payer MEDICARE, OTHER, SELFPAY ==
[2021-10-19 11:02] LABS: INTERNATIONAL NORM RATIO 2.1 (0.9-1.1); Prothrombin Time 24.4 SEC (9.9-13.0)
== END 2021-10-19 12:32 | disposition home or self-care (01) ==
LOC: HO.LHD 12:31
PROVIDERS: Visit Provider Nurse Practitioner Family
DX: Z79.01 Long term (current) use of anticoagulants (principal)
CPT/HCPCS: 36415; 85610

== ENCOUNTER 2021-11-02 13:36 | Outpatient (REF) | payer MEDICARE, OTHER, SELFPAY ==
[2021-11-02 11:30] LABS: INTERNATIONAL NORM RATIO 2.8 (0.9-1.1); Prothrombin Time 32.2 SEC (9.9-13.0)
== END 2021-11-02 13:37 | disposition home or self-care (01) ==
LOC: HO.LHD 13:36
PROVIDERS: Visit Provider Nurse Practitioner Family
DX: Z79.01 Long term (current) use of anticoagulants (principal)
CPT/HCPCS: 36415; 85610

== ENCOUNTER 2021-11-23 07:34 | Outpatient (REF) | payer MEDICARE, OTHER, SELFPAY ==
[2021-11-23 12:55] LABS: INTERNATIONAL NORM RATIO 2.1 (0.9-1.1); Prothrombin Time 24.6 SEC (9.9-13.0)
== END 2021-11-23 07:35 | disposition home or self-care (01) ==
LOC: HO.LHD 07:34
PROVIDERS: Visit Provider Nurse Practitioner Family
DX: Z79.01 Long term (current) use of anticoagulants (principal)
CPT/HCPCS: 36415; 85610

== ENCOUNTER 2021-12-14 06:50 | Outpatient (REF) | payer MEDICARE, OTHER, SELFPAY | END 2021-12-14 06:51 | disposition home or self-care (01) | LOC: HO.LHD 06:50 | PROVIDERS: Visit Provider Nurse Practitioner Family | DX: Z13.89 Encounter for screening for other disorder (principal) ==

== ENCOUNTER 2021-12-15 | Outpatient (REF) | payer MEDICARE, OTHER, SELFPAY | END 2021-12-15 00:01 | disposition home or self-care (01) | LOC: HO.LHD | PROVIDERS: Visit Provider Nurse Practitioner Family | DX: Z13.89 Encounter for screening for other disorder (principal) ==

== ENCOUNTER 2021-12-15 08:00 | Outpatient (REF) | payer MEDICARE, OTHER, SELFPAY ==
[2021-12-15 11:22] LABS: MANUAL DIFF FLAG NO
[2021-12-15 11:32] LABS: Basophils Percent Auto 0.5 % (0-2); Eosinophils Absolute Auto 0.2 X10*3/uL (0.0-0.4); Eosinophils Percent Auto 2.5 % (0-4); Hemoglobin 14.7 g/dl (14.0-18.0); Imm Gran Abs Auto 0.02 X10*3/uL (0.00-0.03); Imm Gran Pct Auto 0.3 % (0.0-0.4); Lymphocytes Absolute Auto 1.1 X10*3/uL (1.2-4.9); Lymphocytes Percent Auto 17.3 % (20-40); Mean Corpuscular HGB Conc 32.7 g/dl (31.0-36.0); Mean Corpuscular Volume 94.9 fL (80.0-98.0); Mean Platelet Volume 12.9 fL (9.4-12.4); Monocytes Absolute Auto 0.7 X10*3/uL (0.1-1.2); Monocytes Percent Auto 10.9 % (2-11); Neutrophils Absolute Auto 4.4 x10*3/uL (2.0-8.3); Neutrophils Percent Auto 68.5 % (45-73); Platelet Count 128 X10*3/uL (160-400); Red Blood Count 4.74 X10*6/uL (4.60-5.80); Red Cell Distribution Width 13.6 % (11.0-16.0); White Blood Count 6.4 X10*3/uL (4.8-10.8)
[2021-12-15 11:36] LABS: INTERNATIONAL NORM RATIO 1.9 (0.9-1.1); Prothrombin Time 22.7 SEC (10.0-13.1)
[2021-12-15 11:57] LABS: Appearance Urine CLEAR; Color Urine YELLOW; Glucose Urine UA NEG (NEG); Leukocyte Esterase Urine NEG (NEG); Nitrite Urine NEG (NEG); PH 5.5 (5.0-8.0); Specific Gravity - Urine 1.025 (1.005-1.025); Urine Blood NEG (NEG); Urine Ketones NEG (NEG); Urine Protein NEG (NEG-TRACE)
[2021-12-15 12:03] LABS: Alanine Aminotransferase 27 U/L (0-40); Albumin Level 4.2 g/dL (3.5-5.0); Alkaline Phosphatase 56 U/L (39-117); Anion Gap 15 (12-20); Aspartate Amino Transferase 20 U/L (5-37); Bilirubin Total 0.7 mg/dL (0.0-1.0); Blood Urea Nitrogen 30 mg/dL (9-16); Calcium 9.3 mg/dL (8.4-10.2); Carbon Dioxide 26 mmol/L (22-29); Chloride 106 mmol/L (96-108); Cholesterol 110 mg/dL; Estimated Glomerular Filt Rate 50; Glucose Fasting 133 mg/dL (60-99); HDL Cholesterol 34 mg/dL; LDL Cholesterol Calculated 53 mg/dl; Potassium 4.7 mmol/L (3.3-5.1); Sodium 142 mmol/L (135-145); Total Protein 7.1 g/dL (6.5-8.0); Triglycerides 116 mg/dL
[2021-12-15 12:04] LABS: TSH reflex Free T4 0.33 uIU/mL (0.32-4.0)
== END 2021-12-15 08:01 | disposition home or self-care (01) ==
LOC: HO.HMGCLDS 08:00
PROVIDERS: PCP Nurse Practitioner Family; Visit Provider Nurse Practitioner Family
DX: J44.9 Chronic obstructive pulmonary disease, unspecified (principal); I10 Essential (primary) hypertension; Z79.01 Long term (current) use of anticoagulants
CPT/HCPCS: 36415; 80053; 80061; 81003; 84443; 85025; 85610

== ENCOUNTER 2021-12-22 06:59 | Outpatient (REF) | payer MEDICARE, OTHER, SELFPAY ==
[2021-12-22 11:34] LABS: Estimated Average Glucose 146 mg/dL; Hemoglobin A1c % 6.7 %
[2021-12-22 11:35] LABS: Glucose Fasting 138 mg/dL (60-99)
== END 2021-12-22 07:00 | disposition home or self-care (01) ==
LOC: HO.HMGCLDS 06:59
PROVIDERS: Visit Provider Nurse Practitioner Family
DX: R73.01 Impaired fasting glucose (principal)
CPT/HCPCS: 36415; 82947; 83036

== ENCOUNTER 2022-01-05 10:35 | Outpatient (REF) | payer MEDICARE, OTHER, SELFPAY ==
[2022-01-05 11:55] LABS: INTERNATIONAL NORM RATIO 2.2 (0.9-1.1); Prothrombin Time 26.5 SEC (10.0-13.1)
== END 2022-01-05 10:36 ==
LOC: HO.LHD 10:35
PROVIDERS: Visit Provider Nurse Practitioner Family
DX: Z79.01 Long term (current) use of anticoagulants (principal)
CPT/HCPCS: 36415; 85610

== ENCOUNTER 2022-01-26 05:44 | Outpatient (REF) | payer MEDICARE, OTHER, SELFPAY ==
[2022-01-25 11:11] LABS: INTERNATIONAL NORM RATIO 2.4 (0.9-1.1); Prothrombin Time 28.7 SEC (10.0-13.1)
== END 2022-01-26 05:45 | disposition home or self-care (01) ==
LOC: HO.LHD 05:44
PROVIDERS: Visit Provider Nurse Practitioner Family
DX: Z79.01 Long term (current) use of anticoagulants (principal)
CPT/HCPCS: 36415; 85610

== ENCOUNTER 2022-02-06 13:38 | Emergency (ER) | payer MEDICARE, MEDICAID, OTHER, SELFPAY ==
--- NOTE | 2022-02-06 13:46 | ECG_ITS ---
Test Reason : dizziness Blood Pressure : / mmHG Vent. Rate : 060 BPM Atrial Rate : 060 BPM P-R Int : 184 ms QRS Dur : 098 ms QT Int : 434 ms P-R-T Axes : -16 -49 -14 degrees QTc Int : 434 ms Normal sinus rhythm Low voltage QRS Left anterior fascicular block Inferior infarct , age undetermined Cannot rule out Anteroseptal infarct (cited on or before 14-JAN-2020) Abnormal ECG When compared with ECG of 03-JUL-2020 00:48, Sinus rhythm has replaced Atrial flutter Questionable change in initial forces of Anterior leads T wave amplitude has decreased in Anterior leads Referred By: Griffin Brandt Electronically Signed By:REA ARMSTRONG
[2022-02-06 14:03] VITALS: BP 128/56; PULSE 74; O2SAT 98
--- NOTE | 2022-02-06 14:21 | ED.ARRPALP ---
HPI - Arrhythmia/Palpitations General Chief Complaint: Arrhythmia/Palpitations Stated Complaint: PACEMAKER KEEPS FIRING W/CHEST PAIN PER EMS Time Seen by Provider: 02/06/22 13:45 Source: patient Mode of arrival: EMS Limitations: no limitations History of Present Illness HPI narrative: Patient had three shocks today, got dizzy and lightheaded and got a wave and then he got shocked. Nausea Onset (ago): minute(s) Duration: intermittent Severity: severe Context: occurred during rest Associated symptoms: nausea Related Data Previous Rx's Medication Instructions Recorded warfarin 2.5 mg tablet 2.5 mg PO Q2D #30 tabs 03/29/21 furosemide 20 mg tablet 40 mg PO DAILY 90 days #180 tabs 07/14/21 albuterol sulfate 90 mcg/actuation 2 puff inhalation Q6H PRN 08/10/21 aerosol inhaler (ProAir HFA) Shortness Of Breath 30 days #8.5 grams fluticasone furoate 100 1 ea inhalation DAILY #180 ea 08/10/21 mcg-vilanterol 25 mcg/dose inhalation powder (Breo Ellipta) atorvastatin 40 mg tablet 40 mg PO DAILY 90 days #90 tabs 08/22/21 lisinopril 5 mg tablet 5 mg PO DAILY #90 tabs 08/22/21 metoprolol succinate 50 mg 50 mg PO DAILY #30 tabs 08/22/21 tablet,extended release 24 hr (Toprol XL) trazodone 100 mg tablet 100 mg PO BEDTIME #30 tabs 12/06/21 azithromycin 250 mg tablet See Rx Instructions PO .COMPLEX 5 12/14/21 days #6 tabs prednisone 20 mg tablet 20 mg PO DAILY 6 days #6 tabs 12/14/21 warfarin 2 mg tablet 2 mg PO DAILY #30 tabs 01/05/22 metoprolol succinate 100 mg 100 mg PO DAILY #30 tabs 02/06/22 tablet,extended release 24 hr (Toprol XL) Allergies Allergy/AdvReac Type Severity Reaction Status Date / Time No Known Allergies Allergy Verified 12/14/21 10:14 [No Known Allergies*] Review of Systems Constitutional: Constitutional: Reports no additional constitutional complaints Eyes: Eyes: Reports no additional eye complaints ENT: Denies dizziness Cardiovascular: Cardiovascular: Reports no additional cardiovascular complaints Respiratory: Respiratory: Reports as per HPI Gastrointestinal: Gastrointestinal: Reports no additional gastrointestinal complaints Musculoskeletal: Musculoskeletal: Reports no additional musculoskeletal complaints Integumentary/Breasts: Skin/Breast: Denies rash Neurologic: Reports system reviewed and no additional complaints, except as documented, Denies dizziness and Denies Sensory deficit (Neuro) Psychiatric: Psychiatric: Denies anxiety [facility] Past Medical History Medical History Asthma Atherosclerotic cardiovascular disease Atrial fibrillation Chronic a-fib COPD (chronic obstructive pulmonary disease) Elevated blood sugar Erectile dysfunction Fatigue Hearing loss High triglycerides HTN (hypertension) Hyperlipidemia Nonischemic cardiomyopathy Stroke Typical atrial flutter Surgical History History of appendectomy History of tonsillectomy Presence of single chamber implantable cardioverter-defibrillator (ICD) Family History Family History Father Unknown family medical history Mother Unknown family medical history Social History Social History Household Members: None Housing: Apartment Are you a primary manager critical care unit to a significant other at home: No Do you presently have visiting nurse or other home services: No Alcohol intake: current Alcohol intake frequency: a few times a week Patient Tobacco Use Status: Current everyday Tobacco user Cigarettes Per Day: 4 Second Hand Smoke Exposure: No Use of substances other than those prescribed or required for medical reasons: No Advance Directives: Yes Advance Directives on File: Yes Advance Directives Date on File: 08/18/20 service: No Current occupational status: retired Cognitive needs: No Hearing needs: No Vision needs: No Physical Exam Vital Signs: Vital Signs: Last Vital Signs Temp 97.9 F 02/06/22 14:30 Pulse 64 02/06/22 14:30 Resp 12 02/06/22 14:30 BP 139/57 L 02/06/22 14:30 Pulse Ox 96 02/06/22 14:30 O2 Del Method 02/06/22 14:30 Const: General: healthy appearing Nutritional Appearance: average body habitus Orientation/consciousness: oriented to person and patient oriented x3 Limitations: no limitations HEENT: Head: Yes normal to inspection Ears: external ears normal General nose exam: Normal external nose present Mouth: Normal oral and palatal mucosa present and oropharynx normal Throat: Yes posterior oropharynx normal Eyes: General: appearance normal, both eyes and all related structures Neck: Other: supple Neck: Yes normal visual inspection Chest: Chest palpation & inspection: normal inspection of the chest Resp: Auscultation: clear to auscultation bilaterally Cardio: Jugular venous distension: no JVD Rate: regular rate Rhythm: regular rhythm Heart sounds: S1 normal heart sound present and S2 normal heart sound present GI: Inspection: Yes normal to inspection Palpation (GI): Soft to palpation, nontender and No hepatosplenomegaly present Auscultation: normal bowel sounds : General: Yes no CVA tenderness Back/Spine/Pelvis: Back: no CVA tenderness Skin: General skin exam: no rashes or lesions noted Neuro: General: oriented to person and patient oriented x3 Cranial nerves: Yes CN's II-XII intact bilaterally Motor exam (neuro): 5/5 motor strength present throughout Sensory Exam: No Sensory deficit (Neuro) Extrem: General: Yes normal to inspection Psych: Appearance: grossly normal Course Reevaluation(s) Reevaluation #1: Interrogation done, SVT of 190, took 3 shocks Time: 15:55 Reevaluation #2: Discussed with Dr. Sandoval who wants his betablocker increased to 100mg. Time: 16:40 MDM - Arrhythmia/Palpitations Lab Data Result diagrams: 02/06/22 14:22 02/06/22 14:22 Labs: Lab Results 02/06/22 02/06/22 02/06/22 Range/Units 14:22 14:22 14:22 WBC 6.9 (4.8-10.8) X10*3/uL RBC 4.40 L (4.60-5.80) X10*6/uL Hgb 13.9 L (14.0-18.0) g/dl Hct 41.7 L (42.0-52.0) % MCV 94.8 (80.0-98.0) fL MCH 31.6 (27.0-33.0) pg MCHC 33.3 (31.0-36.0) g/dl RDW 13.4 (11.0-16.0) % Plt Count 156 L (160-400) X10*3/uL MPV 12.0 (9.4-12.4) fL Immature Gran % (Auto) 0.3 (0.0-0.4) % Neut % (Auto) 77.5 H (45-73) % Lymph % (Auto) 10.8 L (20-40) % Johnston % (Auto) 10.7 (2-11) % Eos % (Auto) 0.6 (0-4) % Baso % (Auto) 0.1 (0-2) % Lymph # (Auto) 0.8 L (1.2-4.9) X10*3/uL Johnston # (Auto) 0.7 (0.1-1.2) X10*3/uL Eos # (Auto) 0.0 (0.0-0.4) X10*3/uL Baso # (Auto) 0.0 (0.0-0.2) X10*3/uL Abs Immat Gran (auto) 0.02 (0.00-0.03) X10*3/uL Absolute Neuts (auto) 5.4 (2.0-8.3) x10*3/uL Absolute Nucleated RBC 0.000 (0.0-0.012) X10*3/uL Nucleated RBC % (auto) 0.0 (0.0-0.2) /100WBC Sodium 144 (135-145) mmol/L Potassium 4.5 (3.3-5.1) mmol/L Chloride 107 (96-108) mmol/L Carbon Dioxide 26 (22-29) mmol/L Anion Gap 16 (12-20) BUN 32 H (9-16) mg/dL Creatinine 1.34 (0.5-1.4) mg/dL Estim Creat Clear Calc TNP Estimated GFR 51 Random Glucose 126 H (60-115) mg/dL Calcium 8.8 (8.4-10.2) mg/dL Magnesium 1.9 (1.6-2.6) mg/dL Troponin I High Sens 46.4 H (<3.5-35.0) ng/L Discharge Plan Discharge Clinical Impression: Supraventricular tachycardia Patient Disposition: Home, Self-Care Instructions: Supraventricular Tachycardia (ED) Additional Instructions: Increase toprol XL to 2 tabs daily or garbage pick up man new prescription Prescriptions: New metoprolol succinate [Toprol XL] 100 mg tablet extended release 24 hr 100 mg PO DAILY Qty: 30 0RF No Action warfarin 2.5 mg tablet 2.5 mg PO Q2D Qty: 30 4RF Protocol: Dose Management Condition: Sunday (Week One) Dose/Route: 2 mg Instruction: 1 x 2 mg tablet Condition: Sunday Dose/Route: 2.5 mg Instruction: 1 x 2.5 mg tablet Condition: Sunday Dose/Route: 2 mg Instruction: 1 x 2 mg tablet Condition: Sunday Dose/Route: 5 mg Instruction: 2 x 2.5 mg tablets Condition: Dose/Route: 2.5 mg Instruction: 1 x 2.5 mg tablet Condition: Sunday Dose/Route: 2 mg Instruction: 1 x 2 mg tablet Condition: Sunday Dose/Route: 2.5 mg Instruction: 1 x 2.5 mg tablet Condition: Sunday ( Two) Dose/Route: 2 mg Instruction: 1 x 2 mg tablet Condition: Sunday Dose/Route: 2.5 mg Instruction: 1 x 2.5 mg tablet Condition: Sunday Dose/Route: 2 mg Instruction: 1 x 2 mg tablet Condition: Sunday Dose/Route: 5 mg Instruction: 2 x 2.5 mg tablets Condition: Dose/Route: 2.5 mg Instruction: 1 x 2.5 mg tablet Condition: Sunday Dose/Route: 2 mg Instruction: 1 x 2 mg tablet Condition: Sunday Dose/Route: 2.5 mg Instruction: 1 x 2.5 mg tablet Protocol Text: Adjustment Start Date: Sunday12/07/20 INR Value: 2.5 INR Date: 12/07/20 Recheck Date: 12/21/20 Additional Instructions: pt aware to continue with routine dosing and repeat INR in 2 weeks. furosemide 20 mg tablet 40 mg PO DAILY 90 Days Qty: 180 3RF metoprolol succinate [Toprol XL] 50 mg tablet extended release 24 hr 50 mg PO DAILY Qty: 30 3RF atorvastatin 40 mg tablet 40 mg PO DAILY 90 Days Qty: 90 1RF lisinopril 5 mg tablet 5 mg PO DAILY Qty: 90 1RF trazodone 100 mg tablet 100 mg PO BEDTIME Qty: 30 2RF warfarin 2 mg tablet 2 mg PO DAILY Qty: 30 2RF Protocol: Dose Management Condition: Sunday (Week One) Dose/Route: 2 mg Instruction: 1 x 2 mg tablet Condition: Sunday Dose/Route: 2.5 mg Instruction: 1 x 2.5 mg tablet Condition: Sunday Dose/Route: 2 mg Instruction: 1 x 2 mg tablet Condition: Sunday Dose/Route: 5 mg Instruction: 2 x 2.5 mg tablets Condition: Dose/Route: 2.5 mg Instruction: 1 x 2.5 mg tablet Condition: Sunday Dose/Route: 2 mg Instruction: 1 x 2 mg tablet Condition: Sunday Dose/Route: 2.5 mg Instruction: 1 x 2.5 mg tablet Condition: Sunday (Week Two) Dose/Route: 2 mg Instruction: 1 x 2 mg tablet Condition: Sunday Dose/Route: 2.5 mg Instruction: 1 x 2.5 mg tablet Condition: Sunday Dose/Route: 2 mg Instruction: 1 x 2 mg tablet Condition: Sunday Dose/Route: 5 mg Instruction: 2 x 2.5 mg tablets Condition: Dose/Route: 2.5 mg Instruction: 1 x 2.5 mg tablet Condition: Sunday Dose/Route: 2 mg Instruction: 1 x 2 mg tablet Condition: Sunday Dose/Route: 2.5 mg Instruction: 1 x 2.5 mg tablet Protocol Text: Adjustment Start Date: Sunday12/07/20 INR Value: 2.5 INR Date: 12/07/20 Recheck Date: 12/21/20 Additional Instructions: pt aware to continue with routine dosing and repeat INR in 2 weeks. albuterol sulfate [ProAir HFA] 90 mcg/actuation HFA aerosol inhaler 2 puff inhalation Q6H PRN (Reason: Shortness Of Breath) 30 Days Qty: 8.5 3RF Breo Ellipta 100-25 mcg/dose blister with device 1 ea inhalation DAILY Qty: 180 5RF azithromycin 250 mg tablet See Rx Instructions PO .COMPLEX 5 Days Qty: 6 0RF Rx Instructions: For 250 mg dose pack: take 500 mg today (day 1), then 250 mg for 4 days (days 2-5) PO prednisone 20 mg tablet 20 mg PO DAILY 6 Days Qty: 6 0RF Referrals: Dagoberto Childs FNP-PRABHU [Primary Care Provider] - 1 week Bubba Mccullough MD [Physician] - 3 days
[2022-02-06 14:30] VITALS: BP 139/57; PULSE 64; RESP 12; TEMP 36.6; O2SAT 96
[2022-02-06 14:36] LABS: MANUAL DIFF FLAG NO
[2022-02-06 14:42] LABS: Basophils Percent Auto 0.1 % (0-2); Eosinophils Percent Auto 0.6 % (0-4); Hematocrit 41.7 % (42.0-52.0); Hemoglobin 13.9 g/dl (14.0-18.0); Imm Gran Abs Auto 0.02 X10*3/uL (0.00-0.03); Imm Gran Pct Auto 0.3 % (0.0-0.4); Lymphocytes Absolute Auto 0.8 X10*3/uL (1.2-4.9); Lymphocytes Percent Auto 10.8 % (20-40); Mean Corpuscular HGB Conc 33.3 g/dl (31.0-36.0); Mean Corpuscular Hemoglobin 31.6 pg (27.0-33.0); Mean Corpuscular Volume 94.8 fL (80.0-98.0); Monocytes Absolute Auto 0.7 X10*3/uL (0.1-1.2); Monocytes Percent Auto 10.7 % (2-11); Neutrophils Absolute Auto 5.4 x10*3/uL (2.0-8.3); Neutrophils Percent Auto 77.5 % (45-73); Platelet Count 156 X10*3/uL (160-400); Red Cell Distribution Width 13.4 % (11.0-16.0); White Blood Count 6.9 X10*3/uL (4.8-10.8)
[2022-02-06 14:52] LABS: Anion Gap 16 (12-20); Blood Urea Nitrogen 32 mg/dL (9-16); Calcium 8.8 mg/dL (8.4-10.2); Carbon Dioxide 26 mmol/L (22-29); Chloride 107 mmol/L (96-108); Estimated Glomerular Filt Rate 51; Glucose Random 126 mg/dL (60-115); Magnesium 1.9 mg/dL (1.6-2.6); Potassium 4.5 mmol/L (3.3-5.1); Sodium 144 mmol/L (135-145)
[2022-02-06 14:59] LABS: Troponin-I High Sensitivity 46.4 ng/L (<3.5-35.0)
--- NOTE | 2022-02-06 15:11 | PC.NURSE ---
d/t ipad issues [employer] sending out rep for reading
--- NOTE | 2022-02-06 15:41 | PC.NURSE ---
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
[2022-02-06] MEDS: Metoprolol Succinate ER 50 MG TAB.ER.24H PO (16:52)
[2022-02-06 17:02] VITALS: BP 146/67; PULSE 56; RESP 16; TEMP 36.6; O2SAT 98
[2022-02-06 18:00] LABS: Troponin-I High Sensitivity 172.2 ng/L (<3.5-35.0)
== END 2022-02-06 17:24 | disposition home or self-care (01) ==
PROVIDERS: Emergency Provider Emergency Medicine; PCP Nurse Practitioner Family
DX: I47.1 Supraventricular tachycardia (principal); I10 Essential (primary) hypertension; I48.20 Chronic atrial fibrillation, unspecified; E78.5 Hyperlipidemia, unspecified; F17.210 Nicotine dependence, cigarettes, uncomplicated; Z79.01 Long term (current) use of anticoagulants; Z79.899 Other long term (current) drug therapy; Z79.02 Long term (current) use of antithrombotics/antiplatelets; Z95.0 Presence of cardiac pacemaker
CPT/HCPCS: 36415; 80048; 83735; 84484; 85025; 93005; 99283; 99285

== ENCOUNTER → 2022-02-08 08:42 | Outpatient (BNVA) | payer MEDICARE, OTHER, SELFPAY | PROVIDERS: PCP Nurse Practitioner Family; Referring Provider Nurse Practitioner Family; Visit Provider Internal Medicine Cardiovascular Disease | DX: I48.91 Unspecified atrial fibrillation (principal); I48.92 Unspecified atrial flutter; I42.8 Other cardiomyopathies; Z79.899 Other long term (current) drug therapy; Z45.02 Encounter for adjustment and management of automatic implantable cardiac defibrillator | CPT/HCPCS: 99212 ==

== ENCOUNTER 2022-02-09 12:29 | Outpatient (REF) | payer OTHER, SELFPAY ==
[2022-02-09 12:06] LABS: INTERNATIONAL NORM RATIO 2.2 (0.9-1.1); Prothrombin Time 26.4 SEC (10.0-13.1)
== END 2022-02-09 12:30 | disposition home or self-care (01) ==
LOC: HO.LHD 12:29
PROVIDERS: Visit Provider Nurse Practitioner Family
DX: Z79.01 Long term (current) use of anticoagulants (principal)
CPT/HCPCS: 36415; 85610

== ENCOUNTER 2022-02-22 14:30 | Outpatient (REF) | payer OTHER, SELFPAY ==
[2022-02-22 13:09] LABS: INTERNATIONAL NORM RATIO 2.7 (0.9-1.1); Prothrombin Time 31.9 SEC (10.0-13.1)
== END 2022-02-22 14:31 | disposition home or self-care (01) ==
LOC: HO.LHD 14:30
PROVIDERS: Visit Provider Nurse Practitioner Family
DX: Z79.01 Long term (current) use of anticoagulants (principal)
CPT/HCPCS: 36415; 85610

== ENCOUNTER 2022-03-08 12:02 | Outpatient (REF) | payer OTHER, SELFPAY ==
[2022-03-08 10:51] LABS: Prothrombin Time 35.9 SEC (10.0-13.1)
== END 2022-03-08 12:03 | disposition home or self-care (01) ==
LOC: HO.LHD 12:02
PROVIDERS: Visit Provider Nurse Practitioner Family
DX: Z79.01 Long term (current) use of anticoagulants (principal)
CPT/HCPCS: 36415; 85610

== ENCOUNTER 2022-03-22 08:45 | Outpatient (REF) | payer OTHER, SELFPAY ==
[2022-03-22 13:55] LABS: INTERNATIONAL NORM RATIO 2.7 (0.9-1.1); Prothrombin Time 32.6 SEC (10.0-13.1)
== END 2022-03-22 08:46 | disposition home or self-care (01) ==
LOC: HO.LHD 08:45
PROVIDERS: Visit Provider Nurse Practitioner Family
DX: Z79.01 Long term (current) use of anticoagulants (principal)
CPT/HCPCS: 36415; 85610

== ENCOUNTER 2022-04-12 06:22 | Outpatient (REF) | payer OTHER, SELFPAY ==
[2022-04-12 12:09] LABS: INTERNATIONAL NORM RATIO 3.9 (0.9-1.1); Prothrombin Time 47.9 SEC (10.0-13.1)
== END 2022-04-12 06:23 | disposition home or self-care (01) ==
LOC: HO.LHD 06:22
PROVIDERS: Visit Provider Nurse Practitioner Family
DX: Z79.01 Long term (current) use of anticoagulants (principal)
CPT/HCPCS: 36415; 85610

== ENCOUNTER 2022-04-19 05:48 | Outpatient (REF) | payer OTHER, SELFPAY ==
[2022-04-19 10:15] LABS: MANUAL DIFF FLAG NO
[2022-04-19 10:21] LABS: Basophils Percent Auto 0.2 % (0-2); Eosinophils Absolute Auto 0.1 X10*3/uL (0.0-0.4); Eosinophils Percent Auto 1.7 % (0-4); Hematocrit 40.2 % (42.0-52.0); Hemoglobin 12.8 g/dl (14.0-18.0); Imm Gran Abs Auto 0.03 X10*3/uL (0.00-0.03); Imm Gran Pct Auto 0.4 % (0.0-0.4); Lymphocytes Absolute Auto 1.2 X10*3/uL (1.2-4.9); Mean Corpuscular HGB Conc 31.8 g/dl (31.0-36.0); Mean Corpuscular Hemoglobin 30.2 pg (27.0-33.0); Mean Corpuscular Volume 94.8 fL (80.0-98.0); Mean Platelet Volume 12.6 fL (9.4-12.4); Monocytes Absolute Auto 0.8 X10*3/uL (0.1-1.2); Monocytes Percent Auto 9.4 % (2-11); Neutrophils Absolute Auto 6.1 x10*3/uL (2.0-8.3); Neutrophils Percent Auto 74.3 % (45-73); Platelet Count 130 X10*3/uL (160-400); Red Blood Count 4.24 X10*6/uL (4.60-5.80); Red Cell Distribution Width 13.7 % (11.0-16.0); White Blood Count 8.2 X10*3/uL (4.8-10.8)
[2022-04-19 10:25] LABS: Appearance Urine Clear; Color Urine Yellow; Glucose Urine UA Negative (Negative); Leukocyte Esterase Urine Negative (Negative); Nitrite Urine Negative (Negative); Urine Blood Negative (Negative); Urine Ketones Negative (Negative); Urine Protein Negative (Neg-Trace)
[2022-04-19 10:37] LABS: INTERNATIONAL NORM RATIO 2.6 (0.9-1.1); Prothrombin Time 31.4 SEC (10.0-13.1)
[2022-04-19 10:54] LABS: Alanine Aminotransferase 22 U/L (0-40); Albumin Level 4.5 g/dL (3.5-5.0); Alkaline Phosphatase 74 U/L (39-117); Anion Gap 18 (12-20); Aspartate Amino Transferase 16 U/L (5-37); Bilirubin Total 0.9 mg/dL (0.0-1.0); Blood Urea Nitrogen 40 mg/dL (9-16); Calcium 9.1 mg/dL (8.4-10.2); Carbon Dioxide 25 mmol/L (22-29); Chloride 104 mmol/L (96-108); Cholesterol 104 mg/dL; Estimated Glomerular Filt Rate 32; Glucose Fasting 122 mg/dL (60-99); HDL Cholesterol 30 mg/dL; LDL Cholesterol Calculated 56 mg/dl; Potassium 4.5 mmol/L (3.3-5.1); Sodium 142 mmol/L (135-145); Total Protein 7.4 g/dL (6.5-8.0); Triglycerides 94 mg/dL
[2022-04-19 11:06] LABS: Prostate Specific Antigen Scr 0.53 ng/mL (<0.05-4.0); TSH reflex Free T4 0.94 uIU/mL (0.32-4.0)
== END 2022-04-19 05:49 | disposition home or self-care (01) ==
LOC: HO.LHD 05:48
PROVIDERS: Visit Provider Nurse Practitioner Family
DX: I10 Essential (primary) hypertension (principal); Z12.5 Encounter for screening for malignant neoplasm of prostate; Z79.01 Long term (current) use of anticoagulants
CPT/HCPCS: 36415; 80053; 80061; 81003; 84153; 84443; 85025; 85610

== ENCOUNTER 2022-04-24 05:48 | Outpatient (REF) | payer OTHER, SELFPAY ==
[2022-04-24 10:14] LABS: Alanine Aminotransferase 17 U/L (0-40); Albumin Level 4.3 g/dL (3.5-5.0); Alkaline Phosphatase 72 U/L (39-117); Anion Gap 16 (12-20); Aspartate Amino Transferase 15 U/L (5-37); Bilirubin Total 0.5 mg/dL (0.0-1.0); Blood Urea Nitrogen 54 mg/dL (9-16); Calcium 9.2 mg/dL (8.4-10.2); Carbon Dioxide 24 mmol/L (22-29); Chloride 108 mmol/L (96-108); Estimated Glomerular Filt Rate 30; Glucose Random 134 mg/dL (60-115); Potassium 4.6 mmol/L (3.3-5.1); Sodium 143 mmol/L (135-145); Total Protein 7.2 g/dL (6.5-8.0)
== END 2022-04-24 05:49 | disposition home or self-care (01) ==
LOC: HO.LHD 05:48
PROVIDERS: Visit Provider Nurse Practitioner Family
DX: R79.89 Other specified abnormal findings of blood chemistry (principal)
CPT/HCPCS: 36415; 80053

== ENCOUNTER 2022-04-28 05:51 | Outpatient (REF) | payer OTHER, SELFPAY ==
[2022-04-28 12:00] LABS: INTERNATIONAL NORM RATIO 3.5 (0.9-1.1); Prothrombin Time 42.4 SEC (10.0-13.1)
[2022-04-28 12:53] LABS: Alanine Aminotransferase 26 U/L (0-40); Alkaline Phosphatase 66 U/L (39-117); Anion Gap 16 (12-20); Aspartate Amino Transferase 23 U/L (5-37); Bilirubin Total 0.4 mg/dL (0.0-1.0); Blood Urea Nitrogen 45 mg/dL (9-16); Calcium 8.9 mg/dL (8.4-10.2); Carbon Dioxide 22 mmol/L (22-29); Chloride 110 mmol/L (96-108); Estimated Glomerular Filt Rate 31; Glucose Random 133 mg/dL (60-115); Potassium 5.3 mmol/L (3.3-5.1); Sodium 143 mmol/L (135-145); Total Protein 7.1 g/dL (6.5-8.0)
[2022-04-28 14:00] LABS: Albumin Level 4.1 g/dL (3.5-5.0)
== END 2022-04-28 05:52 | disposition home or self-care (01) ==
LOC: HO.LHD 05:51
PROVIDERS: Visit Provider Nurse Practitioner Family
DX: R79.89 Other specified abnormal findings of blood chemistry (principal); Z79.01 Long term (current) use of anticoagulants
CPT/HCPCS: 36415; 80053; 85610

== ENCOUNTER 2022-05-03 11:05 | Outpatient (REF) | payer OTHER, SELFPAY ==
[2022-05-03 10:55] LABS: INTERNATIONAL NORM RATIO 4.4 (0.9-1.1); Prothrombin Time 53.5 SEC (10.0-13.1)
[2022-05-03 11:16] LABS: Anion Gap 15 (12-20); Carbon Dioxide 29 mmol/L (22-29); Chloride 105 mmol/L (96-108); Sodium 144 mmol/L (135-145)
== END 2022-05-03 11:06 | disposition home or self-care (01) ==
LOC: HO.LHD 11:05
PROVIDERS: Visit Provider Nurse Practitioner Family
DX: E87.5 Hyperkalemia (principal); Z79.01 Long term (current) use of anticoagulants
CPT/HCPCS: 36415; 80051; 85610

== ENCOUNTER 2022-05-10 05:59 | Outpatient (REF) | payer OTHER, SELFPAY ==
[2022-05-10 10:45] LABS: INTERNATIONAL NORM RATIO 4.1 (0.9-1.1); Prothrombin Time 49.6 SEC (10.0-13.1)
== END 2022-05-10 06:00 | disposition home or self-care (01) ==
LOC: HO.LHD 05:59
PROVIDERS: Visit Provider Nurse Practitioner Family
DX: Z79.01 Long term (current) use of anticoagulants (principal)
CPT/HCPCS: 36415; 85610

== ENCOUNTER 2022-05-17 07:00 | Outpatient (REF) | payer OTHER, SELFPAY ==
[2022-05-17 12:30] LABS: INTERNATIONAL NORM RATIO 3.1 (0.9-1.1); Prothrombin Time 37.8 SEC (10.0-13.1)
== END 2022-05-17 07:01 | disposition home or self-care (01) ==
LOC: HO.LHD 07:00
PROVIDERS: Visit Provider Nurse Practitioner Family
DX: Z79.01 Long term (current) use of anticoagulants (principal)
CPT/HCPCS: 36415; 85610

== ENCOUNTER 2022-05-24 11:11 | Outpatient (REF) | payer OTHER, SELFPAY ==
[2022-05-24 10:44] LABS: INTERNATIONAL NORM RATIO 3.3 (0.9-1.1); Prothrombin Time 40.4 SEC (10.0-13.1)
== END 2022-05-24 11:12 | disposition home or self-care (01) ==
LOC: HO.LHD 11:11
PROVIDERS: Visit Provider Nurse Practitioner Family
DX: Z79.01 Long term (current) use of anticoagulants (principal)
CPT/HCPCS: 36415; 85610

== ENCOUNTER 2022-06-07 10:39 | Outpatient (REF) | payer OTHER, SELFPAY ==
[2022-06-07 10:16] LABS: INTERNATIONAL NORM RATIO 4.9 (0.9-1.1); Prothrombin Time 60.5 SEC (10.0-13.1)
== END 2022-06-07 10:40 | disposition home or self-care (01) ==
LOC: HO.LHD 10:39
PROVIDERS: Visit Provider Nurse Practitioner Family
DX: Z79.01 Long term (current) use of anticoagulants (principal)
CPT/HCPCS: 36415; 85610

== ENCOUNTER 2022-06-15 08:56 | Outpatient (REF) | payer OTHER, SELFPAY ==
[2022-06-15 11:21] LABS: MANUAL DIFF FLAG NO
[2022-06-15 11:46] LABS: Basophils Percent Auto 0.4 % (0-2); Eosinophils Absolute Auto 0.1 X10*3/uL (0.0-0.4); Hematocrit 41.1 % (42.0-52.0); Imm Gran Abs Auto 0.02 X10*3/uL (0.00-0.03); Imm Gran Pct Auto 0.4 % (0.0-0.4); Lymphocytes Absolute Auto 0.9 X10*3/uL (1.2-4.9); Lymphocytes Percent Auto 16.5 % (20-40); Mean Corpuscular HGB Conc 31.6 g/dl (31.0-36.0); Mean Corpuscular Hemoglobin 29.7 pg (27.0-33.0); Mean Corpuscular Volume 93.8 fL (80.0-98.0); Mean Platelet Volume 12.3 fL (9.4-12.4); Monocytes Absolute Auto 0.6 X10*3/uL (0.1-1.2); Monocytes Percent Auto 9.9 % (2-11); Neutrophils Percent Auto 70.8 % (45-73); Platelet Count 199 X10*3/uL (160-400); Red Blood Count 4.38 X10*6/uL (4.60-5.80); Red Cell Distribution Width 14.5 % (11.0-16.0); White Blood Count 5.6 X10*3/uL (4.8-10.8)
[2022-06-15 12:15] LABS: Alanine Aminotransferase 19 U/L (0-40); Albumin Level 4.3 g/dL (3.5-5.0); Alkaline Phosphatase 81 U/L (39-117); Anion Gap 14 (12-20); Aspartate Amino Transferase 19 U/L (5-37); Bilirubin Total 0.4 mg/dL (0.0-1.0); Blood Urea Nitrogen 36 mg/dL (9-16); Calcium 9.1 mg/dL (8.4-10.2); Carbon Dioxide 26 mmol/L (22-29); Chloride 108 mmol/L (96-108); Estimated Glomerular Filt Rate 37; Glucose Random 125 mg/dL (60-115); Potassium 4.8 mmol/L (3.3-5.1); Sodium 143 mmol/L (135-145); Total Protein 7.3 g/dL (6.5-8.0)
== END 2022-06-15 08:57 | disposition home or self-care (01) ==
LOC: HO.HMGCLDS 08:56
PROVIDERS: PCP Nurse Practitioner Family; Visit Provider Nurse Practitioner Family
DX: B34.9 Viral infection, unspecified (principal)
CPT/HCPCS: 36415; 80053; 84443; 85025

== ENCOUNTER 2022-06-16 07:26 | Outpatient (REF) | payer OTHER, SELFPAY ==
[2022-06-16 10:57] LABS: INTERNATIONAL NORM RATIO 2.5 (0.9-1.1); Prothrombin Time 29.2 SEC (10.0-13.1)
== END 2022-06-16 07:27 | disposition home or self-care (01) ==
LOC: HO.LHD 07:26
PROVIDERS: Visit Provider Nurse Practitioner Family
DX: I48.91 Unspecified atrial fibrillation (principal); I48.92 Unspecified atrial flutter; Z79.01 Long term (current) use of anticoagulants
CPT/HCPCS: 36415; 85610

== ENCOUNTER 2022-06-19 05:38 | Outpatient (REF) | payer OTHER, SELFPAY ==
[2022-06-19 11:35] LABS: INTERNATIONAL NORM RATIO 2.9 (0.9-1.1); Prothrombin Time 34.9 SEC (10.0-13.1)
== END 2022-06-19 05:39 | disposition home or self-care (01) ==
LOC: HO.LHD 05:38
PROVIDERS: Visit Provider Nurse Practitioner Family
DX: Z79.01 Long term (current) use of anticoagulants (principal)
CPT/HCPCS: 36415; 85610

== ENCOUNTER 2022-06-26 06:05 | Outpatient (REF) | payer OTHER, SELFPAY ==
[2022-06-26 11:23] LABS: INTERNATIONAL NORM RATIO 3.1 (0.9-1.1); Prothrombin Time 37.3 SEC (10.0-13.1)
== END 2022-06-26 06:06 | disposition home or self-care (01) ==
LOC: HO.LHD 06:05
PROVIDERS: Visit Provider Nurse Practitioner Family
DX: I48.91 Unspecified atrial fibrillation (principal); I48.92 Unspecified atrial flutter; Z79.01 Long term (current) use of anticoagulants
CPT/HCPCS: 36415; 85610

== ENCOUNTER → 2022-06-28 12:02 | Outpatient (BNVA) | payer OTHER, SELFPAY | PROVIDERS: PCP Nurse Practitioner Family; Visit Provider Internal Medicine Cardiovascular Disease | DX: I48.91 Unspecified atrial fibrillation (principal); I42.8 Other cardiomyopathies; I50.9 Heart failure, unspecified; Z79.899 Other long term (current) drug therapy | CPT/HCPCS: 93005; 99212 ==

== ENCOUNTER 2022-07-03 07:19 | Outpatient (REF) | payer OTHER, SELFPAY ==
[2022-07-03 12:13] LABS: INTERNATIONAL NORM RATIO 4.5 (0.9-1.1)
== END 2022-07-03 07:20 | disposition home or self-care (01) ==
LOC: HO.LHD 07:19
PROVIDERS: Visit Provider Nurse Practitioner Family
DX: Z79.01 Long term (current) use of anticoagulants (principal)
CPT/HCPCS: 36415; 85610

== ENCOUNTER 2022-07-05 11:07 | Outpatient (REF) | payer OTHER, SELFPAY ==
[2022-07-05 09:52] LABS: INTERNATIONAL NORM RATIO 3.6 (0.9-1.1); Prothrombin Time 43.7 SEC (10.0-13.1)
== END 2022-07-05 11:08 | disposition home or self-care (01) ==
LOC: HO.LHD 11:07
PROVIDERS: Visit Provider Nurse Practitioner Family
DX: Z79.01 Long term (current) use of anticoagulants (principal)
CPT/HCPCS: 36415; 85610

== ENCOUNTER 2022-07-12 06:21 | Outpatient (REF) | payer OTHER, SELFPAY ==
[2022-07-12 12:42] LABS: INTERNATIONAL NORM RATIO 3.6 (0.9-1.1); Prothrombin Time 43.8 SEC (10.0-13.1)
== END 2022-07-12 06:22 | disposition home or self-care (01) ==
LOC: HO.LHD 06:21
PROVIDERS: Visit Provider Nurse Practitioner Family
DX: I48.91 Unspecified atrial fibrillation (principal); I48.92 Unspecified atrial flutter; Z79.01 Long term (current) use of anticoagulants
CPT/HCPCS: 36415; 85610

== ENCOUNTER 2022-07-19 13:53 | Outpatient (REF) | payer OTHER, SELFPAY ==
[2022-07-19 11:58] LABS: INTERNATIONAL NORM RATIO 4.5 (0.9-1.1); Prothrombin Time 55.5 SEC (10.0-13.1)
== END 2022-07-19 13:54 | disposition home or self-care (01) ==
LOC: HO.LHD 13:53
PROVIDERS: Visit Provider Nurse Practitioner Family
DX: Z79.01 Long term (current) use of anticoagulants (principal)
CPT/HCPCS: 36415; 85610

== ENCOUNTER 2022-07-24 07:40 | Outpatient (REF) | payer OTHER, SELFPAY ==
[2022-07-24 11:49] LABS: INTERNATIONAL NORM RATIO 2.7 (0.9-1.1); Prothrombin Time 31.7 SEC (10.0-13.1)
== END 2022-07-24 07:41 | disposition home or self-care (01) ==
LOC: HO.LHD 07:40
PROVIDERS: Visit Provider Nurse Practitioner Family
DX: Z79.01 Long term (current) use of anticoagulants (principal)
CPT/HCPCS: 36415; 85610

== ENCOUNTER 2022-08-02 05:39 | Outpatient (REF) | payer OTHER, SELFPAY ==
[2022-08-02 11:44] LABS: INTERNATIONAL NORM RATIO 3.6 (0.9-1.1); Prothrombin Time 43.3 SEC (10.0-13.1)
== END 2022-08-02 05:40 | disposition home or self-care (01) ==
LOC: HO.LHD 05:39
PROVIDERS: Visit Provider Nurse Practitioner Family
DX: Z79.01 Long term (current) use of anticoagulants (principal)
CPT/HCPCS: 36415; 85610

== ENCOUNTER 2022-08-09 06:05 | Outpatient (REF) | payer OTHER, SELFPAY ==
[2022-08-09 12:15] LABS: INTERNATIONAL NORM RATIO 2.4 (0.9-1.1)
== END 2022-08-09 06:06 | disposition home or self-care (01) ==
LOC: HO.LHD 06:05
PROVIDERS: Visit Provider Nurse Practitioner Family
DX: I48.91 Unspecified atrial fibrillation (principal); I48.92 Unspecified atrial flutter; Z79.01 Long term (current) use of anticoagulants
CPT/HCPCS: 36415; 85610

== ENCOUNTER 2022-08-23 05:44 | Outpatient (REF) | payer OTHER, SELFPAY ==
[2022-08-23 12:10] LABS: Prothrombin Time 36.3 SEC (10.0-13.1)
== END 2022-08-23 05:45 | disposition home or self-care (01) ==
LOC: HO.LHD 05:44
PROVIDERS: Visit Provider Nurse Practitioner Family
DX: I48.91 Unspecified atrial fibrillation (principal); I48.92 Unspecified atrial flutter; Z79.01 Long term (current) use of anticoagulants
CPT/HCPCS: 36415; 85610

== ENCOUNTER 2022-09-06 11:37 | Outpatient (REF) | payer OTHER, SELFPAY ==
[2022-09-06 11:54] LABS: INTERNATIONAL NORM RATIO 3.1 (0.9-1.1); Prothrombin Time 37.2 SEC (10.0-13.1)
== END 2022-09-06 11:38 | disposition home or self-care (01) ==
LOC: HO.LHD 11:37
PROVIDERS: Visit Provider Nurse Practitioner Family
DX: Z79.01 Long term (current) use of anticoagulants (principal)
CPT/HCPCS: 36415; 85610

== ENCOUNTER 2022-09-13 06:02 | Outpatient (REF) | payer OTHER, SELFPAY ==
[2022-09-13 11:57] LABS: INTERNATIONAL NORM RATIO 3.7 (0.9-1.1); Prothrombin Time 44.4 SEC (10.0-13.1)
== END 2022-09-13 06:03 | disposition home or self-care (01) ==
LOC: HO.LHD 06:02
PROVIDERS: Visit Provider Nurse Practitioner Family
DX: I48.91 Unspecified atrial fibrillation (principal); I48.92 Unspecified atrial flutter; Z79.01 Long term (current) use of anticoagulants
CPT/HCPCS: 36415; 85610

== ENCOUNTER 2022-09-19 06:42 | Outpatient (REF) | payer OTHER, SELFPAY ==
[2022-09-19 12:44] LABS: INTERNATIONAL NORM RATIO 2.4 (0.9-1.1)
== END 2022-09-19 06:43 | disposition home or self-care (01) ==
LOC: HO.LHD 06:42
PROVIDERS: Visit Provider Nurse Practitioner Family
DX: Z79.01 Long term (current) use of anticoagulants (principal)
CPT/HCPCS: 36415; 85610

== ENCOUNTER 2022-09-20 09:41 | Outpatient (REF) | payer OTHER, SELFPAY ==
--- NOTE | ~2022-09-20 | XR_ITS ---
EXAMINATION: XR CHEST CLINICAL INFORMATION: Chest pain COMPARISON: Previous chest x-ray most recent 08/17/2020 TECHNIQUE: 2 views of the chest were obtained. FINDINGS: The cardiac silhouette is enlarged but stable. There is a left subclavian pacemaker AICD device that appears unchanged projecting over the ventricular apex. Hilar and mediastinal contours are unremarkable. The lungs are clear. No pleural effusion or pneumothorax. Degenerative changes of the spine. XR/XR chest 2V IMPRESSION: Stable enlargement of the cardiac silhouette. No evidence for acute disease in the chest.
== END 2022-09-20 09:42 | disposition home or self-care (01) ==
LOC: HO.HMGCX 09:41
PROVIDERS: PCP Nurse Practitioner Family; Visit Provider Nurse Practitioner Family
DX: R07.89 Other chest pain (principal); I50.9 Heart failure, unspecified
CPT/HCPCS: 71046

== ENCOUNTER 2022-10-04 | Outpatient (REF) | payer OTHER, MEDICAID, SELFPAY ==
[2022-10-04 12:12] LABS: INTERNATIONAL NORM RATIO 3.1 (0.9-1.1); Prothrombin Time 37.5 SEC (10.0-13.1)
== END 2022-10-04 00:01 ==
LOC: HO.LNP
PROVIDERS: Visit Provider Nurse Practitioner Family
DX: Z79.01 Long term (current) use of anticoagulants (principal)
CPT/HCPCS: 85610

== ENCOUNTER 2022-10-10 07:07 | Outpatient (REF) | payer OTHER, MEDICAID, SELFPAY ==
[2022-10-10 11:22] LABS: INTERNATIONAL NORM RATIO 3.3 (0.9-1.1)
== END 2022-10-10 07:08 | disposition home or self-care (01) ==
LOC: HO.LHD 07:07
PROVIDERS: Visit Provider Nurse Practitioner Family
DX: Z79.01 Long term (current) use of anticoagulants (principal)
CPT/HCPCS: 36415; 85610

== ENCOUNTER 2022-10-17 07:03 | Outpatient (REF) | payer OTHER, MEDICAID, SELFPAY ==
[2022-10-17 10:24] LABS: INTERNATIONAL NORM RATIO 3.3 (0.9-1.1); Prothrombin Time 39.3 SEC (10.0-13.1)
== END 2022-10-17 07:04 | disposition home or self-care (01) ==
LOC: HO.LHD 07:03
PROVIDERS: Visit Provider Nurse Practitioner Family
DX: Z79.01 Long term (current) use of anticoagulants (principal)
CPT/HCPCS: 36415; 85610

== ENCOUNTER 2022-10-24 07:00 | Outpatient (REF) | payer OTHER, MEDICAID, SELFPAY ==
[2022-10-24 10:37] LABS: INTERNATIONAL NORM RATIO 3.2 (0.9-1.1); Prothrombin Time 38.8 SEC (10.0-13.1)
== END 2022-10-24 07:01 | disposition home or self-care (01) ==
LOC: HO.LHD 07:00
PROVIDERS: Visit Provider Nurse Practitioner Family
DX: Z79.01 Long term (current) use of anticoagulants (principal)
CPT/HCPCS: 36415; 85610

== ENCOUNTER 2022-10-31 07:25 | Outpatient (REF) | payer OTHER, MEDICAID, SELFPAY ==
[2022-10-31 11:46] LABS: INTERNATIONAL NORM RATIO 3.2 (0.9-1.1); Prothrombin Time 38.1 SEC (10.0-13.1)
== END 2022-10-31 07:26 | disposition home or self-care (01) ==
LOC: HO.LHD 07:25
PROVIDERS: Visit Provider Nurse Practitioner Family
DX: Z79.01 Long term (current) use of anticoagulants (principal)
CPT/HCPCS: 36415; 85610

== ENCOUNTER 2022-11-07 09:03 | Outpatient (REF) | payer OTHER, MEDICAID, SELFPAY ==
[2022-11-07 11:37] LABS: INTERNATIONAL NORM RATIO 3.2 (0.9-1.1); Prothrombin Time 39.1 SEC (10.0-13.1)
== END 2022-11-07 09:04 | disposition home or self-care (01) ==
LOC: HO.HMGCLDS 09:03
PROVIDERS: PCP Nurse Practitioner Family; Visit Provider Nurse Practitioner Family
DX: I48.91 Unspecified atrial fibrillation (principal); I48.92 Unspecified atrial flutter
CPT/HCPCS: 36415; 85610

== ENCOUNTER 2022-11-14 09:26 | Outpatient (REF) | payer OTHER, MEDICAID, SELFPAY ==
[2022-11-14 11:41] LABS: INTERNATIONAL NORM RATIO 3.7 (0.9-1.1)
== END 2022-11-14 09:27 | disposition home or self-care (01) ==
LOC: HO.HMGCLDS 09:26
PROVIDERS: PCP Nurse Practitioner Family; Visit Provider Nurse Practitioner Family
DX: I48.91 Unspecified atrial fibrillation (principal); I48.92 Unspecified atrial flutter
CPT/HCPCS: 36415; 85610

== ENCOUNTER 2022-11-21 12:31 | Outpatient (REF) | payer OTHER, MEDICAID, SELFPAY ==
[2022-11-21 14:42] LABS: INTERNATIONAL NORM RATIO 2.9 (0.9-1.1); Prothrombin Time 35.3 SEC (10.0-13.1)
== END 2022-11-21 12:32 | disposition home or self-care (01) ==
LOC: HO.HMGCLDS 12:31
PROVIDERS: PCP Nurse Practitioner Family; Visit Provider Nurse Practitioner Family
DX: I48.91 Unspecified atrial fibrillation (principal); I48.92 Unspecified atrial flutter
CPT/HCPCS: 36415; 85610

== ENCOUNTER 2022-12-05 09:49 | Outpatient (REF) | payer OTHER, MEDICAID, SELFPAY ==
[2022-12-05 11:27] LABS: MANUAL DIFF FLAG NO
[2022-12-05 11:36] LABS: Appearance Urine Clear; Basophils Percent Auto 0.4 % (0-2); Color Urine Yellow; Eosinophils Absolute Auto 0.1 X10*3/uL (0.0-0.4); Eosinophils Percent Auto 1.3 % (0-4); Glucose Urine UA Negative (Negative); Hematocrit 43.4 % (42.0-52.0); Imm Gran Abs Auto 0.01 X10*3/uL (0.00-0.03); Imm Gran Pct Auto 0.2 % (0.0-0.4); Leukocyte Esterase Urine Negative (Negative); Lymphocytes Absolute Auto 0.9 X10*3/uL (1.2-4.9); Lymphocytes Percent Auto 15.4 % (20-40); Mean Corpuscular HGB Conc 32.3 g/dl (31.0-36.0); Mean Corpuscular Hemoglobin 30.4 pg (27.0-33.0); Mean Corpuscular Volume 94.3 fL (80.0-98.0); Mean Platelet Volume 12.6 fL (9.4-12.4); Monocytes Absolute Auto 0.5 X10*3/uL (0.1-1.2); Monocytes Percent Auto 9.7 % (2-11); Neutrophils Absolute Auto 4.1 x10*3/uL (2.0-8.3); Nitrite Urine Negative (Negative); PH 5.5 (5.0-9.0); Platelet Count 141 X10*3/uL (160-400); Red Cell Distribution Width 15.1 % (11.0-16.0); Urine Blood Negative (Negative); Urine Ketones Negative (Negative); Urine Protein Negative (Neg-Trace); White Blood Count 5.6 X10*3/uL (4.8-10.8)
[2022-12-05 11:44] LABS: INTERNATIONAL NORM RATIO 3.2 (0.9-1.1); Prothrombin Time 38.7 SEC (10.0-13.1)
[2022-12-05 12:08] LABS: Alanine Aminotransferase 27 U/L (0-40); Albumin Level 4.1 g/dL (3.5-5.0); Alkaline Phosphatase 67 U/L (39-117); Anion Gap 15 (12-20); Aspartate Amino Transferase 19 U/L (5-37); Bilirubin Total 0.9 mg/dL (0.0-1.0); Blood Urea Nitrogen 43 mg/dL (9-16); Calcium 9.1 mg/dL (8.4-10.2); Carbon Dioxide 23 mmol/L (22-29); Chloride 107 mmol/L (96-108); Cholesterol 112 mg/dL; Estimated Glomerular Filt Rate 38; Glucose Fasting 146 mg/dL (60-99); HDL Cholesterol 36 mg/dL; LDL Cholesterol Calculated 49 mg/dl; Potassium 4.3 mmol/L (3.3-5.1); Sodium 141 mmol/L (135-145); Triglycerides 137 mg/dL
[2022-12-05 12:30] LABS: TSH reflex Free T4 0.89 uIU/mL (0.32-4.0)
== END 2022-12-05 09:50 | disposition home or self-care (01) ==
LOC: HO.HMGCLDS 09:49
PROVIDERS: PCP Nurse Practitioner Family; Visit Provider Nurse Practitioner Family
DX: R07.89 Other chest pain (principal); I50.9 Heart failure, unspecified; I48.92 Unspecified atrial flutter; I48.91 Unspecified atrial fibrillation
CPT/HCPCS: 36415; 80053; 80061; 81003; 84443; 85025; 85610

== ENCOUNTER → 2022-12-18 10:37 | Outpatient (REF) | payer OTHER, MEDICAID, SELFPAY ==
--- NOTE | 2022-12-18 10:39 | CA_ITS ---
Transthoracic Echocardiogram Patient (Last, First, Middle): Eder Farah, Gender: Male Date of : 1940 Age: 82 Procedure Date: 12/18/2022 Procedure Type: Transthoracic Echocardiogram Location: OP Height: 167.64 cm Weight: 92.99 kg BSA: 2.02 m2 Heart Rate: 71 bpm BP: 132 / 80 mmHg Reservation Sales Agent: SB Referring MD: Bubba Mccullough MD Senior Research Project Manager: Bubba Mccullough MD Symptoms: I50.9 - Heart failure, unspecified Study Quality: Adequate ECG Rhythm: Atrial Fibrillation Conclusions: - Normal left ventricular cavity size. There is normal left ventricular wall thickness. The left ventricular systolic function is moderately decreased. The visually estimated ejection fraction is between 30-35%. - The basal inferior segment is akinetic. - Mildly increased right ventricular cavity size. There is moderately decreased right ventricular systolic function. There is an ICD wire seen in the right ventricle. - The left atrium is severely dilated. The right atrium is severely dilated. - There is mild aortic valve stenosis. - The right ventricular systolic pressure is 56 mmHg. Moderately elevated right atrial pressure. Moderate pulmonary hypertension is present. Findings Left Ventricle Normal left ventricular cavity size. There is normal left ventricular wall thickness. The left ventricular systolic function is moderately decreased. The visually estimated ejection fraction is between 30-35%. There is evidence of regional wall motion abnormalities. There is moderate global hypokinesis. Diastolic function is indeterminate on the basis of available data. Wall Motion Rest Echo Findings The basal inferior segment is akinetic. Right Ventricle Mildly increased right ventricular cavity size. There is moderately decreased right ventricular systolic function. There is an ICD wire seen in the right ventricle. Atria The left atrium is severely dilated. The right atrium is severely dilated. Aortic Valve There is moderate calcification of the aortic valve. There is mild aortic valve stenosis. There is no aortic valve regurgitation. Mitral Valve There is mild anterior and posterior mitral leaflet thickening. There is trace mitral valve regurgitation. There is no mitral valve stenosis. Pulmonic Valve Normal pulmonic valve structure and function. There is no pulmonic valve regurgitation. Tricuspid Valve Normal tricuspid valve structure. There is mild tricuspid valve regurgitation. The right ventricular systolic pressure is 56 mmHg. Moderately elevated right atrial pressure. Moderate pulmonary hypertension is present. Great Vessels All visible segments of the aorta are normal in size. The visualized portions of the pulmonary artery and branches are normal. Venous The inferior vena cava is dilated and collapses greater than 50% with inspiration. Pericardium/Pleural There is no evidence of pericardial effusion. Prior Study Comparison Changes noted compared to prior study dated: 06/15/2021. EF mildly better (30-35%), RV dilated with moderate dysfunction, severe biatrial enlargement. Moderate pulm hypertension. Measurements 2D Linear Measurements IVSd: 0.97 0.6-0.9/0.6-1.0 cm LVIDd: 5.31 3.9-5.3/4.2-5.9 cm LVIDd Index: 2.63 2.4-3.2/2.2-3.1 cm/m2 LVIDs: 4.60 2.0-3.6 cm LVPWd: 0.69 0.7-1.1 cm LA Diam: 5.50 2.7-3.8/3.0-4.0 cm LAIDs Index: 2.72 1.5-2.3 cm/m2 LV Mass: 197.20 67-162/88-224 g LV Mass Index: 97.62 43-95/49-115 g/m2 LVOT Diam: 2.20 3.0+(-)1.3 cm 2D Systolic Function EF 4C: 28.10 >55% EF 2C: 32.30 >55% EF BiP: 30.60 >55% Mitral Valve MV Pk E: 0.99 MV Decel Time: 149.00 E'Lateral: 5.20 E'Medial: 4.16 E/E' Med: 23.80 E/E' Lat: 19.00 Aortic Valve AoV Pk Hieu: 1.59 AoV Mn Hieu: 1.10 AoV VTI: 0.37 AoV Pk Grad: 10.00 Aov Mn Grad: 6.00 QUAN Cont.VTI: 1.60 LVOT LVOT Pk Hieu: 0.72 LVOT Mn Hieu: 0.51 LVOT VTI: 0.16 LVOT Pk Grad: 2.00 LVOT Mn Grad: 1.00 LVOT Diam: 2.20 LVOT Area: 3.80 Diastolic Function MV Pk E: 0.99 E'Medial: 4.16 E/E' Med: 23.80 E' Laterial: 5.20 E/E' Lat: 19.00 Right Ventricle TAPSE (mm): 10.70 TVS' Hieu: 6.30 Tricuspid Valve TR Pk Hieu: 3.22 TR Pk Grad: 41.00 RA Press: 15.00 RVSP: 56.00 Great Vessels Aorta Sinus of Valsalva: 2.70 2.0-3.5 cm Ao Asc: 3.00 2.1-3.4 cm Pulmonary Veins Pulm Vein S/D 0.50 Pulmonary Valve PV Pk Hieu: 0.79 Peak PV Grad: 2.00 Updated in Other Vendor System with Status of Final Bubba Mccullough MD electronically signed on 12/18/2022 6:59:06 PM with status of Final
== END ==
LOC: HO.CARD 10:37
PROVIDERS: PCP Nurse Practitioner Family; Visit Provider Internal Medicine Cardiovascular Disease
DX: I50.9 Heart failure, unspecified (principal)
CPT/HCPCS: 93306

== ENCOUNTER → 2022-12-18 10:39 | Outpatient (BNV) | payer OTHER, MEDICAID, SELFPAY | PROVIDERS: PCP Nurse Practitioner Family; Visit Provider Internal Medicine Cardiovascular Disease | DX: I35.0 Nonrheumatic aortic (valve) stenosis (principal); I36.1 Nonrheumatic tricuspid (valve) insufficiency | CPT/HCPCS: 93306 ==

== ENCOUNTER 2022-12-19 12:41 | Outpatient (REF) | payer OTHER, MEDICAID, SELFPAY ==
[2022-12-19 16:32] LABS: INTERNATIONAL NORM RATIO 2.8 (0.9-1.1); Prothrombin Time 33.1 SEC (10.0-13.1)
== END 2022-12-19 12:42 | disposition home or self-care (01) ==
LOC: HO.HMGCLDS 12:41
PROVIDERS: PCP Nurse Practitioner Family; Visit Provider Nurse Practitioner Family
DX: I48.91 Unspecified atrial fibrillation (principal); I48.92 Unspecified atrial flutter
CPT/HCPCS: 36415; 85610

== ENCOUNTER 2022-12-27 13:08 | Outpatient (AMB) | payer OTHER, MEDICAID, SELFPAY ==
--- NOTE | 2022-12-27 13:32 | MHC.OFFVIS ---
Intake Vital Signs 12/27/22 13:33 Height 5 ft 7 in Weight 206 lb 12.697 oz BMI 32.4 BP 122/70 Blood Pressure Location Lt brachial Position Sitting Pulse 66 Pulse Source Monitor Intake Visit Reasons: OVERDUE FOLLOW UP AFTER ECHO Intake Note: Overdue follow up with EKG after echo. Negotiator Sales Required: No Accompanied by: Self / Same As Patient Allergies No Known Allergies [No Known Allergies*] Allergy (Verified 12/27/22 13:36) Medication List - Last Reconciled 12/27/22 by Bubba Mccullough MD albuterol sulfate 90 mcg/actuation (ProAir HFA) 2 puffs inhalation Q6H PRN 30 days amiodarone 200 mg PO DAILY atorvastatin 40 mg PO DAILY 90 days blood sugar diagnostic (ZEturf Ultra Test strips) Use to check fasting blood sugar and a random sugar daily blood-glucose meter (ZEturf Ultra2 Meter) Use to check fasting blood sugar and a random sugar daily fluticasone furoate-vilanterol 100-25 mcg/dose (Breo Ellipta) 1 ea inhalation DAILY furosemide 40 mg PO DAILY lancets (Hyperic Delica Safety Lancet) Use to check fasting blood sugar and a random sugar daily lisinopril 5 mg PO DAILY metoprolol succinate ER (Toprol XL) 100 mg PO DAILY sildenafil 100 mg PO DAILY PRN 10 days trazodone 100 mg PO BEDTIME warfarin 2 mg See Protocol PO DAILY warfarin 2.5 mg See Protocol PO Q2D HPI HPI Comments History of Present Illness Details 82-year-old gentleman with nonischemic cardiomyopathy and background of atrial flutter. He has been experiencing significant episodes of atrial fibrillation based on device interrogations. He had at least 3 shocks by his device recently. On 1st occasion he was drinking alcohol and had a device shock which was thought to be due to atrial fibrillation. He also had recent episode where he had 3 device shocks and device interrogation currently showing tachycardia at approximately 200 beats per minute. The appearance looks like atrial flutter. We had previously tried a rhythm control strategy with him and he was given amiodarone but it appears he gained some weight after that and stop taking the amiodarone. When he was diagnosed with cardiomyopathy he was advised to be admitted the hospital to have a sotalol load but he has never agreed to be admitted to the hospital. He is denying chest discomfort currently. He is not complaining of any shortness of breath. He is saying before device shock he had nausea and sweating. He is saying that these symptoms are quite consistent before he had device shocks previously. He was started on amiodarone after discussion and since then has not had any shocks from his device. He has stop drinking alcohol. He has also stopped smoking in the last 4 months. He is taking medications regularly. He has EKG showing atrial fibrillation with occasional paced beats. He does not have any significant shortness of breath. No chest discomfort. 12/27/22: He is here for follow-up. He has been complaining of shortness of breath over the last week or so. He is saying he cannot lay flat in bed and gets orthopnea. Also walking around he is getting out of breath easily. Denying any peripheral edema or abdominal distension. He has been taking Lasix 40 mg once a day. Previously was advised to take 60 mg of Lasix. He is taking medications otherwise regularly. Recent echocardiography has shown EF of 30 35% which is mild improvement from severe dysfunction in the past. [facility] Medical History (Updated 12/05/22 @ 17:55 by Dagoberto Childs, [facility]) Asthma Atherosclerotic cardiovascular disease Atrial fibrillation Chronic a-fib COPD (chronic obstructive pulmonary disease) Elevated blood sugar Erectile dysfunction Fatigue Hearing loss High triglycerides HTN (hypertension) Hyperlipidemia Nonischemic cardiomyopathy Stroke Typical atrial flutter Surgical History History of appendectomy History of tonsillectomy Presence of single chamber implantable cardioverter-defibrillator (ICD) Family History Father Unknown family medical history Mother Unknown family medical history Social History (Updated 12/27/22 @ 13:38 by CARLITO Mayorga) Household Members: None Housing: Apartment Are you a primary out of school hours care worker to a significant other at home: No Do you presently have visiting nurse or other home services: No Alcohol intake: current Alcohol intake frequency: holidays/special occasions only Patient Tobacco Use Status: Current everyday Tobacco user Cigarettes Per Day: 4 Years Smoked: 70 +/- e-Cigarette/Vaping Use: Never Used Second Hand Smoke Exposure: No Advance Directives Date on File: 08/18/20 service: No Current occupational status: retired Cognitive needs: No Hearing needs: No Vision needs: No Review of Systems Const Denies weakness ENT Denies dizziness Card Denies chest pain, Denies chest pain with activity, Denies syncope, Denies rapid heart rate, Denies pedal edema, Denies edema, Denies leg edema, Denies lightheadedness, Denies palpitations, Denies dyspnea, Denies dyspnea on exertion and Denies orthopnea Resp Denies cough, Denies dyspnea and Denies dyspnea on exertion GI Denies hematochezia and Denies change in stool character Musc Denies abnormal gait, Denies muscle cramps, Denies muscle weakness, Denies numbness, Denies radiating pain into limb and Denies tingling Neuro Denies abnormal gait, Denies dizziness, Denies syncope, Denies numbness, Denies tingling and Denies weakness Endo Denies palpitations Physical Exam Vital Signs: Last Vital Signs Pulse 66 12/27/22 13:33 BP 122/70 12/27/22 13:33 BMI result Body Mass Index 32.4 GENERAL APPEARANCE: in no acute distress, pleasant. NECK: no carotid bruit, + jugular venous distention. + hepatojugular reflux. SKIN: no suspicious lesions, warm and dry. HEART: no murmurs, irregular rate and rhythm. LUNGS: clear to auscultation bilaterally. ABDOMEN: soft, nontender. EXTREMITIES: no edema. PERIPHERAL PULSES: equal. NEUROLOGIC: No gross deficits, AAO X 3 Office Procedures EKG Details: Atrial flutter with variable block 66 beats per minute, low voltage, left anterior fascicular block, inferior infarct anteroseptal infarct, QTC 438 milliseconds. [id number], Complete Assessment & Plan Assessment & Plan (1) Chronic heart failure: Code(s): I50.9 - Heart failure, unspecified (2) HTN (hypertension): Code(s): I10 - Essential (primary) hypertension (3) Atrial flutter: Code(s): I48.92 - Unspecified atrial flutter Plan 82-year-old gentleman with nonischemic cardiomyopathy who is here for follow-up. Previously LV function was severely reduced. Currently LV function is moderately reduced based on recent echocardiography. He has been on amiodarone. He is in atrial flutter by EKG with rate control. It is liver function as well as thyroid profile recently was normal. He is complaining of shortness of breath. Clinically appears to be volume overloaded. He is also experiencing orthopnea. I think his Lasix should be increased to 40 mg twice a day. Rest he can continue same medications for now. Will see him back in few weeks. Thank you for allowing me to participate in the care of your patient. Please feel free to contact me if you have any questions. Medications: Changed From amiodarone Take orally Take 2 tablets twice a day x 14 days then 200 mg once a day; 100 tabs 3RF I48.92 - Unspecified atrial flutter To amiodarone 200 mg PO DAILY I48.92 - Unspecified atrial flutter From furosemide 40 mg PO DAILY To furosemide 40 mg PO BID Coding Level of Care Code Est Pt Level 4 (53311) Diagnoses Chronic heart failure I50.9 HTN (hypertension) I10 Atrial flutter I48.92 CPT Codes EKG - CPT: 57808-[id number], Complete ([id number])
[2022-12-27 13:33] VITALS: BP 122/70; PULSE 66; BMI 32.4
== END 2022-12-27 14:20 | disposition home or self-care (01) ==
PROVIDERS: PCP Nurse Practitioner Family; Visit Provider Internal Medicine Cardiovascular Disease
DX: I50.9 Heart failure, unspecified (principal); I10 Essential (primary) hypertension; I48.92 Unspecified atrial flutter
CPT/HCPCS: 93010; 99214

== ENCOUNTER → 2022-12-27 13:08 | Outpatient (BNVA) | payer OTHER, MEDICAID, SELFPAY | PROVIDERS: PCP Nurse Practitioner Family; Visit Provider Internal Medicine Cardiovascular Disease | DX: I11.0 Hypertensive heart disease with heart failure (principal); I50.9 Heart failure, unspecified; I48.92 Unspecified atrial flutter | CPT/HCPCS: 93005; 99212 ==

== ENCOUNTER 2023-01-02 08:02 | Outpatient (REF) | payer OTHER, MEDICAID, SELFPAY ==
[2023-01-02 11:59] LABS: INTERNATIONAL NORM RATIO 3.1 (0.9-1.1); Prothrombin Time 37.4 SEC (11.1-13.3)
== END 2023-01-02 08:03 | disposition home or self-care (01) ==
LOC: HO.HMGCLR 08:02
PROVIDERS: PCP Nurse Practitioner Family; Visit Provider Nurse Practitioner Family
DX: I48.91 Unspecified atrial fibrillation (principal); I48.92 Unspecified atrial flutter
CPT/HCPCS: 36415; 85610

== ENCOUNTER 2023-01-09 12:25 | Outpatient (REF) | payer OTHER, MEDICAID, SELFPAY ==
[2023-01-10 07:28] LABS: Prothrombin Time 36.9 SEC (11.1-13.3)
== END 2023-01-09 12:26 | disposition home or self-care (01) ==
LOC: HO.HMGCLDS 12:25
PROVIDERS: PCP Nurse Practitioner Family; Visit Provider Nurse Practitioner Family
DX: I48.91 Unspecified atrial fibrillation (principal); I48.92 Unspecified atrial flutter
CPT/HCPCS: 36415; 85610

== ENCOUNTER 2023-01-16 12:21 | Outpatient (REF) | payer OTHER, MEDICAID, SELFPAY ==
[2023-01-16 14:05] LABS: INTERNATIONAL NORM RATIO 3.2 (0.9-1.1)
== END 2023-01-16 12:22 | disposition home or self-care (01) ==
LOC: HO.HMGCLDS 12:21
PROVIDERS: PCP Nurse Practitioner Family; Visit Provider Nurse Practitioner Family
DX: I48.92 Unspecified atrial flutter (principal); I48.91 Unspecified atrial fibrillation
CPT/HCPCS: 36415; 85610

== ENCOUNTER 2023-01-22 12:11 | Outpatient (REF) | payer OTHER, MEDICAID, SELFPAY ==
[2023-01-22 13:51] LABS: INTERNATIONAL NORM RATIO 2.5 (0.9-1.1); Prothrombin Time 30.2 SEC (11.1-13.3)
== END 2023-01-22 12:12 | disposition home or self-care (01) ==
LOC: HO.HMGCLR 12:11
PROVIDERS: PCP Nurse Practitioner Family; Visit Provider Nurse Practitioner Family
DX: I48.91 Unspecified atrial fibrillation (principal); I48.92 Unspecified atrial flutter
CPT/HCPCS: 36415; 85610

== ENCOUNTER 2023-01-29 12:17 | Outpatient (REF) | payer OTHER, MEDICAID, SELFPAY ==
[2023-01-29 13:55] LABS: INTERNATIONAL NORM RATIO 2.8 (0.9-1.1); Prothrombin Time 33.9 SEC (11.1-13.3)
== END 2023-01-29 12:18 | disposition home or self-care (01) ==
LOC: HO.HMGCLDS 12:17
PROVIDERS: PCP Nurse Practitioner Family; Visit Provider Nurse Practitioner Family
DX: I48.91 Unspecified atrial fibrillation (principal); I48.92 Unspecified atrial flutter
CPT/HCPCS: 36415; 85610

== ENCOUNTER 2023-02-05 12:17 | Outpatient (REF) | payer OTHER, MEDICAID, SELFPAY ==
[2023-02-05 16:11] LABS: INTERNATIONAL NORM RATIO 3.6 (0.9-1.1); Prothrombin Time 44.1 SEC (11.1-13.3)
== END 2023-02-05 12:18 | disposition home or self-care (01) ==
LOC: HO.HMGCLR 12:17
PROVIDERS: PCP Nurse Practitioner Family; Visit Provider Nurse Practitioner Family
DX: I48.91 Unspecified atrial fibrillation (principal); I48.92 Unspecified atrial flutter
CPT/HCPCS: 36415; 85610

== ENCOUNTER → 2023-02-07 12:42 | Outpatient (BNVA) | payer OTHER, MEDICAID, SELFPAY | PROVIDERS: PCP Nurse Practitioner Family; Referring Provider Nurse Practitioner Family; Visit Provider Internal Medicine Cardiovascular Disease | DX: I50.9 Heart failure, unspecified (principal); Z79.899 Other long term (current) drug therapy | CPT/HCPCS: 93005; 99212 ==

== ENCOUNTER 2023-02-07 12:43 | Outpatient (AMB) | payer OTHER, MEDICAID, SELFPAY ==
[2023-02-07 13:12] VITALS: BP 112/74; PULSE 56; BMI 32.5
--- NOTE | 2023-02-07 13:12 | A.OFFVIS_ITS ---
Intake Vital Signs 02/07/23 13:12 Height 5 ft 7 in Weight 207 lb 10.807 oz BMI 32.5 BP 112/74 Blood Pressure Location Lt brachial Position Sitting Pulse 56 Pulse Source Monitor Intake Visit Reasons: 6-8 WEEK FOLLOW UP Intake Note: 6 to 8 week follow up with EKG. 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 Accompanied by: Self / Same As Patient Allergies No Known Allergies [No Known Allergies*] Allergy (Verified 02/07/23 13:14) Medication List - Last Reconciled 02/07/23 by Bubba Mccullough MD albuterol sulfate 90 mcg/actuation (ProAir HFA) 2 puffs inhalation Q6H PRN 30 days amiodarone 200 mg PO DAILY atorvastatin 40 mg PO DAILY 90 days blood sugar diagnostic ([employer] Ultra Test strips) Use to check fasting blood sugar and a random sugar daily blood-glucose meter ([employer] Ultra2 Meter) Use to check fasting blood sugar and a random sugar daily fluticasone furoate-vilanterol 100-25 mcg/dose (Breo Ellipta) 1 ea inhalation DAILY furosemide 40 mg PO DAILY lancets ([employer] Delica Safety Lancet) Use to check fasting blood sugar and a random sugar daily lisinopril 5 mg PO DAILY metoprolol succinate ER (Toprol XL) 100 mg PO DAILY sildenafil 100 mg PO DAILY PRN 10 days trazodone 100 mg PO BEDTIME warfarin 2 mg See Protocol PO DAILY HPI HPI Comments History of Present Illness Details 82-year-old gentleman with nonischemic cardiomyopathy and background of atrial flutter. He has been experiencing significant episodes of atrial fibrillation based on device interrogations. He had at least 3 shocks by his device recently. On 1st occasion he was drinking alcohol and had a device shock which was thought to be due to atrial fibrillation. He also had recent episode where he had 3 device shocks and device interrogation currently showing tachycardia at approximately 200 beats per minute. The appearance looks like atrial flutter. We had previously tried a rhythm control strategy with him and he was given amiodarone but it appears he gained some weight after that and stop taking the amiodarone. When he was diagnosed with cardiomyopathy he was advised to be admitted the hospital to have a sotalol load but he has never agreed to be admitted to the hospital. He is denying chest discomfort currently. He is not complaining of any shortness of breath. He is saying before device shock he had nausea and sweating. He is saying that these symptoms are quite consistent before he had device shocks previously. He was started on amiodarone after discussion and since then has not had any shocks from his device. He has stop drinking alcohol. He has also stopped smoking in the last 4 months. He is taking medications regularly. He has EKG showing atrial fibrillation with occasional paced beats. He does not have any significant shortness of breath. No chest discomfort. 12/27/22: He is here for follow-up. He has been complaining of shortness of breath over the last week or so. He is saying he cannot lay flat in bed and gets orthopnea. Also walking around he is getting out of breath easily. Denying any peripheral edema or abdominal distension. He has been taking Lasix 40 mg once a day. Previously was advised to take 60 mg of Lasix. He is taking medications otherwise regularly. Recent echocardiography has shown EF of 30 35% which is mild improvement from severe dysfunction in the past. 02/07/23: On last visit we advised him to increase the Lasix to 40 mg twice a day. He was clinically overloaded at that time. Appears he took the Lasix for few days and then started having dizziness which she described like a vertigo like feeling. This is a chronic thing for him and has happened previously 2. After that episode he went back to Lasix once a day. He continues to have some shortness of breath and orthopnea. Still volume overloaded. FOR[facility]LY [facility], [facility] Medical History (Updated 12/05/22 @ 17:55 by Dagoberto Childs, [facility]) Asthma Atherosclerotic cardiovascular disease Atrial fibrillation Chronic a-fib COPD (chronic obstructive pulmonary disease) Elevated blood sugar Erectile dysfunction Fatigue Hearing loss High triglycerides HTN (hypertension) Hyperlipidemia Nonischemic cardiomyopathy Stroke Typical atrial flutter Surgical History History of appendectomy History of tonsillectomy Presence of single chamber implantable cardioverter-defibrillator (ICD) Family History Father Unknown family medical history Mother Unknown family medical history Social History Household Members: None Housing: Apartment Are you a primary rn primary care to a significant other at home: No Do you presently have visiting nurse or other home services: No Alcohol intake: current Alcohol intake frequency: holidays/special occasions only Patient Tobacco Use Status: Current everyday Tobacco user Cigarettes Per Day: 4 Years Smoked: 70 +/- e-Cigarette/Vaping Use: Never Used Second Hand Smoke Exposure: No Advance Directives Date on File: 08/18/20 service: No Current occupational status: retired Cognitive needs: No Hearing needs: No Vision needs: No Review of Systems Const Denies weakness ENT Denies dizziness Card Denies chest pain, Denies chest pain with activity, Denies syncope, Denies rapid heart rate, Denies pedal edema, Denies edema, Denies leg edema, Denies lightheadedness, Denies palpitations, Denies dyspnea, Denies dyspnea on exertion and Denies orthopnea Resp Denies cough, Denies dyspnea and Denies dyspnea on exertion GI Denies hematochezia and Denies change in stool character Musc Denies abnormal gait, Denies muscle cramps, Denies muscle weakness, Denies numbness, Denies radiating pain into limb and Denies tingling Neuro Denies abnormal gait, Denies dizziness, Denies syncope, Denies numbness, Denies tingling and Denies weakness Endo Denies palpitations Physical Exam Vital Signs: Last Vital Signs Pulse 56 02/07/23 13:12 BP 112/74 02/07/23 13:12 BMI result Body Mass Index 32.5 GENERAL APPEARANCE: in no acute distress, pleasant. NECK: no carotid bruit, + jugular venous distention. + hepatojugular reflux. SKIN: no suspicious lesions, warm and dry. HEART: no murmurs, irregular rate and rhythm. LUNGS: clear to auscultation bilaterally. ABDOMEN: soft, nontender. EXTREMITIES: no edema. PERIPHERAL PULSES: equal. NEUROLOGIC: No gross deficits, AAO X 3 Assessment & Plan Assessment & Plan (1) Chronic heart failure: Code(s): I50.9 - Heart failure, unspecified Plan Pleasant 82 year gentleman here for follow-up. He has background history of car diomyopathy. He has been on Toprol XL, lisinopril and Lasix 40 mg daily. On last visit we increase the Lasix to 40 mg twice a day but he apparently had some vertigo like feeling and stop the Lasix. I have advised him that he is volume overloaded and needs higher diuretic dose and should be taking twice a day Lasix. Will check whether Jardiance is covered by his insurance and if there is no fi nancial constraints then we will start him on Jardiance. He will see us back in few months. Thank you for allowing me to participate in the care of your patient. Please feel free to contact me if you have any questions. Medications: New empagliflozin (Jardiance) 10 mg PO DAILY 30 tabs 3RF I50.9 - Heart failure, unspecified Coding Level of Care Code Est Pt Level 4 (46594) Diagnoses Chronic heart failure I50.9
== END 2023-02-07 13:46 | disposition home or self-care (01) ==
PROVIDERS: PCP Nurse Practitioner Family; Referring Provider Nurse Practitioner Family; Visit Provider Internal Medicine Cardiovascular Disease
DX: I50.9 Heart failure, unspecified (principal)
CPT/HCPCS: 93010; 99214

== ENCOUNTER 2023-02-13 14:08 | Outpatient (REF) | payer OTHER, MEDICAID, SELFPAY ==
[2023-02-13 16:36] LABS: INTERNATIONAL NORM RATIO 2.2 (0.9-1.1); Prothrombin Time 27.1 SEC (11.1-13.3)
== END 2023-02-13 14:09 | disposition home or self-care (01) ==
LOC: HO.HMGCLR 14:08
PROVIDERS: PCP Nurse Practitioner Family; Visit Provider Nurse Practitioner Family
DX: I48.91 Unspecified atrial fibrillation (principal); I48.92 Unspecified atrial flutter
CPT/HCPCS: 36415; 85610

== ENCOUNTER → 2023-02-15 23:59 | Outpatient (BNV) | payer OTHER, MEDICAID, SELFPAY ==
--- NOTE | 2023-03-07 21:10 | A.OFFVIS_ITS ---
Intake Intake Visit Reasons: Remote HF Monitoring- Medtr[employer] Allergies No Known Allergies [No Known Allergies*] Allergy (Verified 02/28/23 09:31) PFS Medical History (Updated 02/28/23 @ 09:50 by Dagoberto Childs, [facility]) Atherosclerotic cardiovascular disease Fatigue High triglycerides Erectile dysfunction Typical atrial flutter Nonischemic cardiomyopathy Hearing loss COPD (chronic obstructive pulmonary disease) Chronic a-fib Atrial fibrillation Elevated blood sugar Asthma Hyperlipidemia HTN (hypertension) Stroke Surgical History History of appendectomy History of tonsillectomy Presence of single chamber implantable cardioverter-defibrillator (ICD) Family History Father Unknown family medical history Mother Unknown family medical history Social History Household Members: None Housing: Apartment Are you a primary patient care technician to a significant other at home: No Do you presently have visiting nurse or other home services: No Alcohol intake: current Alcohol intake frequency: holidays/special occasions only Patient Tobacco Use Status: Current everyday Tobacco user Cigarettes Per Day: 4 Years Smoked: 70 +/- e-Cigarette/Vaping Use: Never Used Second Hand Smoke Exposure: No Advance Directives Date on File: 08/18/20 service: No Current occupational status: retired Cognitive needs: No Hearing needs: No Vision needs: No Office Procedures Cardiac Device Check Cardiac Device Check Details: HF monitoring Stable thoracic impedance Significant Afib burden. [id number] Cardiac Device Interrogation, cardio physiologic monitor Procedure code (CPT) selection complete Assessment & Plan Assessment & Plan (1) Chronic heart failure: Code(s): I50.9 - Heart failure, unspecified Coding Level of Care Code Tele Est Pt Level 2 (59075) Procedure Only Diagnoses Chronic heart failure I50.9 CPT Codes Cardiac Device Check - Cardiac Device 15: [id number] Cardiac Device Interrogation, cardio physiologic monitor ([id number])
== END ==
PROVIDERS: PCP Nurse Practitioner Family; Visit Provider Internal Medicine Cardiovascular Disease
DX: I50.9 Heart failure, unspecified (principal)
CPT/HCPCS: 93297

== ENCOUNTER 2023-02-21 12:46 | Outpatient (REF) | payer OTHER, MEDICAID, SELFPAY | END 2023-02-21 12:47 | disposition home or self-care (01) | LOC: HO.HMGCLR 12:46 | PROVIDERS: PCP Nurse Practitioner Family; Visit Provider Nurse Practitioner Family | DX: Z13.89 Encounter for screening for other disorder (principal) | CPT/HCPCS: 36415; 85610 ==

== ENCOUNTER 2023-02-22 13:18 | Outpatient (REF) | payer OTHER, MEDICAID, SELFPAY ==
[2023-02-22 16:22] LABS: Prothrombin Time 36.1 SEC (11.1-13.3)
== END 2023-02-22 13:19 | disposition home or self-care (01) ==
LOC: HO.HMGCLR 13:18
PROVIDERS: PCP Nurse Practitioner Family; Visit Provider Nurse Practitioner Family
DX: I48.91 Unspecified atrial fibrillation (principal); I48.92 Unspecified atrial flutter
CPT/HCPCS: 36415; 85610

== ENCOUNTER 2023-02-28 08:33 | Outpatient (REF) | payer OTHER, MEDICAID, SELFPAY ==
[2023-02-28 12:06] LABS: INTERNATIONAL NORM RATIO 2.9 (0.9-1.1); Prothrombin Time 35.5 SEC (11.1-13.3)
== END 2023-02-28 08:34 | disposition home or self-care (01) ==
LOC: HO.HMGCLDS 08:33
PROVIDERS: PCP Nurse Practitioner Family; Visit Provider Nurse Practitioner Family
DX: I48.91 Unspecified atrial fibrillation (principal); I48.92 Unspecified atrial flutter
CPT/HCPCS: 36415; 85610

== ENCOUNTER 2023-02-28 08:45 | Outpatient (AMB) | payer OTHER, SELFPAY ==
--- NOTE | 2023-02-28 09:26 | MHC.PC.OV ---
Vital Signs 02/28/23 09:30 Height 5 ft 7 in Weight 210 lb 8 oz BMI 33.0 BP 110/60 Blood Pressure Location Rt brachial Position Sitting Pulse 59 Pulse Source Pulse Oximeter Pulse Oximetry (%) 97 Oxygen Delivery Method Room Air Intake Visit Reasons: 5m follow up Allergies No Known Allergies [No Known Allergies*] Allergy (Verified 02/28/23 09:31) Medication List - Last Reconciled 02/28/23 by JESSY Schneider albuterol sulfate 90 mcg/actuation (ProAir HFA) 2 puffs inhalation Q6H PRN 30 days amiodarone 200 mg PO DAILY atorvastatin 40 mg PO DAILY 90 days blood sugar diagnostic ([employer] Ultra Test strips) Use to check fasting blood sugar and a random sugar daily blood-glucose meter ([employer] Ultra2 Meter) Use to check fasting blood sugar and a random sugar daily fluticasone furoate-vilanterol 100-25 mcg/dose (Breo Ellipta) 1 ea inhalation DAILY furosemide 40 mg PO DAILY lancets ([employer] Delica Safety Lancet) Use to check fasting blood sugar and a random sugar daily lisinopril 5 mg PO DAILY metoprolol succinate ER (Toprol XL) 100 mg PO DAILY sildenafil 100 mg PO DAILY PRN 10 days trazodone 100 mg PO BEDTIME warfarin 2 mg See Protocol PO DAILY Tobacco use date assessed: 02/28/23 Fall risk assessment: 1 Fall in past year Last assessed Fall Risk: 02/28/23 Dental Screening Dental Screen Date: 02/28/23 Did you have a dental visit in the last 12 months?: No Did you have a dental problem in the last 6 months where you did not have access to dental care?: Yes Was dental information given to patient?: No HPI 5m follow up HPI Details Pt c/o bilat hip pain. He reports difficulty walking due to pain. Will order XRs. Denies any popping or clicking. ON LICENSE OF [facility] Medical History (Updated 02/28/23 @ 09:50 by JESSY Schneider) Atherosclerotic cardiovascular disease Fatigue High triglycerides Erectile dysfunction Typical atrial flutter Nonischemic cardiomyopathy Hearing loss COPD (chronic obstructive pulmonary disease) Chronic a-fib Atrial fibrillation Elevated blood sugar Asthma Hyperlipidemia HTN (hypertension) Stroke Surgical History History of appendectomy History of tonsillectomy Presence of single chamber implantable cardioverter-defibrillator (ICD) Family History Father Unknown family medical history Mother Unknown family medical history Social History Household Members: None Housing: Apartment Are you a primary coronary care unit nurse to a significant other at home: No Do you presently have visiting nurse or other home services: No Alcohol intake: current Alcohol intake frequency: holidays/special occasions only Patient Tobacco Use Status: Current everyday Tobacco user Cigarettes Per Day: 4 Years Smoked: 70 +/- e-Cigarette/Vaping Use: Never Used Second Hand Smoke Exposure: No Advance Directives Date on File: 08/18/20 service: No Current occupational status: retired Cognitive needs: No Hearing needs: No Vision needs: No Questionnaire Thrive Questionnaire Date Thrive assessed: 06/15/22 RYANNE-7 AMB Questionnaire RYANNE-7 Date RYANNE - 7 assessed: 06/15/22 Source: Developed by Drs. James Kamara, Irina Flaherty, Gucci Zapata and colleagues, with an educational brayan from [employer]. Review of Systems Const Reports as per HPI Physical exam (Primary Care) Vital Signs: Last Vital Signs Pulse 59 02/28/23 09:30 BP 110/60 02/28/23 09:30 Pulse Ox 97 02/28/23 09:30 Oxygen Delivery Method Room Air 02/28/23 09:30 BMI result Body Mass Index 33.0 Tobacco/Smoking Status: Tobacco use Status Tobacco use date assessed 02/28/23 02/28/23 09:37 Patient Tobacco Use Status Current everyday Tobacco 02/28/23 09:27 e-Cigarette/Vaping Use Never Used 02/28/23 09:27 Thrive Assessment: Date of Thrive Assessment Date Thrive assessed 06/15/22 02/28/23 09:27 Const General: cooperative Orientation/consciousness: patient oriented x3 Resp Effort & Inspection: normal respiratory effort Auscultation: clear to auscultation bilaterally Cardio Rate: regular rate Rhythm: abnormal rhythm irregularly irregular Heart sounds: S1 normal heart sound present and S2 normal heart sound present Neuro General: patient oriented x3 Extrem Other: with abduction of bilat hips tenderness noted, + fabers bilat, + dorsalis pedis pulses bilat Psych Appearance: grossly normal Mental Status: mental status grossly normal Speech and movement: Normal speech and movement present Affect: normal affect Attitude: cooperative Thought process: Normal thought process present Thought content: Normal thought content present Insight: Good insight present (Psych) Judgement: Good judgement present (Psych) Assessment and Plan Assessment & Plan (1) Bilateral hip pain: Code(s): M25.551 - Pain in right hip; M25.552 - Pain in left hip Plan: XRs ordered Plan The patient agreed to the use of a medical scientific officer for this encounter. Scribed for JESSY Urban by Candace Saez medical scientific officer, on 02/28/2023 at 09:45 EST. Orders: Orders XR hips URBANO min 3V Today M25.551 - Pain in right hip, M25.552 - Pain in left hip Coding Level of Care Code Est Pt Level 3 (76153) Diagnoses Bilateral hip pain M25.551; M25.552
[2023-02-28 09:30] VITALS: BP 110/60; PULSE 59; O2SAT 97; BMI 33.0
== END 2023-02-28 09:57 | disposition home or self-care (01) ==
PROVIDERS: Visit Provider Nurse Practitioner Family
DX: M25.551 Pain in right hip (principal); M25.552 Pain in left hip
CPT/HCPCS: 99213

== ENCOUNTER 2023-03-07 12:30 | Outpatient (REF) | payer OTHER, MEDICAID, SELFPAY ==
[2023-03-07 16:14] LABS: Prothrombin Time 36.9 SEC (11.1-13.3)
== END 2023-03-07 12:31 | disposition home or self-care (01) ==
LOC: HO.HMGCLR 12:30
PROVIDERS: PCP Nurse Practitioner Family; Visit Provider Nurse Practitioner Family
DX: I48.91 Unspecified atrial fibrillation (principal); I48.92 Unspecified atrial flutter
CPT/HCPCS: 36415; 85610

== ENCOUNTER 2023-03-08 09:28 | Outpatient (REF) | payer OTHER, SELFPAY ==
--- NOTE | ~2023-03-08 | US_ITS ---
EXAMINATION: US RETROPERITONEAL LIMITED (RENAL ONLY) CLINICAL INFORMATION: Hypertension. Acute kidney insufficiency.. COMPARISON: None available. TECHNIQUE: Grayscale and color imaging of the kidneys. Grayscale color and Doppler imaging including waveform spectral analysis of the renal arteries, renal veins and portion of the abdominal aorta. FINDINGS: RIGHT KIDNEY: 11 x 5 x 5.5 cm (SAG x AP x TRV). The kidney is normal in size, contour, and echogenicity. Renal cortical thinning. 2 x 1.3 x 1.4 cm echogenic lesion in the upper pole questionable for an angiomyolipoma. 2 cm simple cyst in the lower pole. No imaging follow-up of renal cysts recommended. No calculi. No hydronephrosis. LEFT KIDNEY: 12.5 x 5.5 x 5 cm (SAG x AP x TRV). The kidney is normal in size, contour, and echogenicity. Renal cortical thinning. No calculi or focal parenchymal lesions. No hydronephrosis. Aortic peak systolic velocity is 96 cm/s. Right renal artery peak systolic velocities are normal measuring 148 cm/s proximally, 99 cm/s the midportion and and upper normal measuring 175 cm/s distally. Right renal artery to aorta ratio is normal measuring 1.5. Resistive indices of the segmental renal arteries in the right kidney are slightly elevated measuring 0.7-0.8. The right renal vein is patent. Left renal artery peak systolic velocities are normal measuring 154, 142 and 142 cm/s proximally, in the midportion and distally. Left renal artery to aorta ratio is normal measuring 1.6. Resistive indices of the segmental renal arteries in the left kidney are elevated measuring 0.8-0.9. The left renal vein is patent. US/US renal doppler IMPRESSION: Bilateral renal cortical thinning. 2 cm echogenic lesion in the upper pole of the right kidney questionable for a benign angiomyolipoma. Follow-up CT or MR imaging of the kidneys recommended. Abnormal indirect renal artery evaluation with elevated segmental resistive indices in both kidneys, left greater than right. Upper normal peak systolic velocity in the right distal renal artery.
== END 2023-03-08 09:29 | disposition home or self-care (01) ==
LOC: HO.HMGCX 09:28
PROVIDERS: PCP Nurse Practitioner Family; Visit Provider Internal Medicine Nephrology
DX: I12.9 Hypertensive chronic kidney disease with stage 1 through stage 4 chronic kidney disease, or unspecified chronic kidney disease (principal); N18.31 Chronic kidney disease, stage 3a
CPT/HCPCS: 76775; 93975

== ENCOUNTER 2023-03-14 12:35 | Outpatient (REF) | payer OTHER, MEDICAID, SELFPAY ==
[2023-03-14 16:12] LABS: INTERNATIONAL NORM RATIO 3.9 (0.9-1.1); Prothrombin Time 47.1 SEC (11.1-13.3)
== END 2023-03-14 12:36 | disposition home or self-care (01) ==
LOC: HO.HMGCLDS 12:35
PROVIDERS: PCP Nurse Practitioner Family; Visit Provider Nurse Practitioner Family
DX: I48.91 Unspecified atrial fibrillation (principal); I48.92 Unspecified atrial flutter
CPT/HCPCS: 36415; 85610

== ENCOUNTER → 2023-03-19 23:59 | Outpatient (BNV) | payer OTHER, MEDICAID, SELFPAY ==
--- NOTE | 2023-03-31 18:45 | A.OFFVIS_ITS ---
Intake Intake Visit Reasons: Remote HF Monitoring- Medtr[employer] Allergies No Known Allergies [No Known Allergies*] Allergy (Verified 02/28/23 09:31) PFS Medical History (Updated 02/28/23 @ 09:50 by Dagoberto Childs, [facility]) Atherosclerotic cardiovascular disease Fatigue High triglycerides Erectile dysfunction Typical atrial flutter Nonischemic cardiomyopathy Hearing loss COPD (chronic obstructive pulmonary disease) Chronic a-fib Atrial fibrillation Elevated blood sugar Asthma Hyperlipidemia HTN (hypertension) Stroke Surgical History History of appendectomy History of tonsillectomy Presence of single chamber implantable cardioverter-defibrillator (ICD) Family History Father Unknown family medical history Mother Unknown family medical history Social History Household Members: None Housing: Apartment Are you a primary intensive care medicine specialist to a significant other at home: No Do you presently have visiting nurse or other home services: No Alcohol intake: current Alcohol intake frequency: holidays/special occasions only Patient Tobacco Use Status: Current everyday Tobacco user Cigarettes Per Day: 4 Years Smoked: 70 +/- e-Cigarette/Vaping Use: Never Used Second Hand Smoke Exposure: No Advance Directives Date on File: 08/18/20 service: No Current occupational status: retired Cognitive needs: No Hearing needs: No Vision needs: No Office Procedures Cardiac Device Check Cardiac Device Check Details: HF monitoring Stable thoracic impedance. [id number] Cardiac Device Interrogation, cardio physiologic monitor Procedure code (CPT) selection complete Coding Level of Care Code Procedure Only CPT Codes Cardiac Device Check - Cardiac Device 15: [id number] Cardiac Device Interrogation, cardio physiologic monitor ([id number])
== END ==
PROVIDERS: PCP Nurse Practitioner Family; Visit Provider Internal Medicine Cardiovascular Disease
DX: I50.9 Heart failure, unspecified (principal)
CPT/HCPCS: 93297

== ENCOUNTER 2023-03-21 08:58 | Outpatient (REF) | payer OTHER, MEDICAID, SELFPAY | END 2023-03-21 08:59 | disposition home or self-care (01) | LOC: HO.HMGCLR 08:58 | PROVIDERS: PCP Nurse Practitioner Family; Visit Provider Nurse Practitioner Family | DX: I48.91 Unspecified atrial fibrillation (principal); I48.92 Unspecified atrial flutter | CPT/HCPCS: 36415; 85610 ==

== ENCOUNTER 2023-03-28 12:38 | Outpatient (REF) | payer OTHER, MEDICAID, SELFPAY ==
[2023-03-28 16:14] LABS: Prothrombin Time 24.3 SEC (11.1-13.3)
== END 2023-03-28 12:39 | disposition home or self-care (01) ==
LOC: HO.HMGCLR 12:38
PROVIDERS: PCP Nurse Practitioner Family; Visit Provider Nurse Practitioner Family
DX: I48.91 Unspecified atrial fibrillation (principal); I48.92 Unspecified atrial flutter
CPT/HCPCS: 36415; 85610

== ENCOUNTER 2023-04-04 13:19 | Outpatient (REF) | payer OTHER, MEDICAID, SELFPAY | END 2023-04-04 13:20 | disposition home or self-care (01) | LOC: HO.HMGCLDS 13:19 | PROVIDERS: PCP Nurse Practitioner Family; Visit Provider Nurse Practitioner Family | DX: Z13.89 Encounter for screening for other disorder (principal) ==

== ENCOUNTER 2023-04-12 12:20 | Outpatient (REF) | payer OTHER, MEDICAID, SELFPAY ==
--- NOTE | ~2023-04-12 | XR_ITS ---
EXAMINATION: XR hips bilateral CLINICAL INFORMATION: Reason for Exam M25.551 - Pain in right hip COMPARISON: None. TECHNIQUE: Two views of each hip FINDINGS: No acute fracture or dislocation. Mild degenerative changes of the right hip with subchondral cystic change. Mild degenerative changes of the left hip with small osteophytes Atherosclerotic vascular calcification. Surgical clips project over the pelvis. XR/XR hips URBANO min 3V IMPRESSION: Mild degenerative changes of the hips.
[2023-04-12 16:07] LABS: MANUAL DIFF FLAG NO
[2023-04-12 16:16] LABS: INTERNATIONAL NORM RATIO 2.5 (0.9-1.1); Prothrombin Time 30.5 SEC (11.1-13.3)
[2023-04-12 16:28] LABS: Basophils Percent Auto 0.3 % (0-2); Eosinophils Absolute Auto 0.1 X10*3/uL (0.0-0.4); Eosinophils Percent Auto 0.8 % (0-4); Hematocrit 44.8 % (42.0-52.0); Hemoglobin 14.6 g/dl (14.0-18.0); Imm Gran Abs Auto 0.02 X10*3/uL (0.00-0.03); Imm Gran Pct Auto 0.3 % (0.0-0.4); Lymphocytes Absolute Auto 0.7 X10*3/uL (1.2-4.9); Lymphocytes Percent Auto 10.8 % (20-40); Mean Corpuscular HGB Conc 32.6 g/dl (31.0-36.0); Mean Corpuscular Hemoglobin 31.4 pg (27.0-33.0); Mean Corpuscular Volume 96.3 fL (80.0-98.0); Mean Platelet Volume 12.6 fL (9.4-12.4); Monocytes Absolute Auto 0.4 X10*3/uL (0.1-1.2); Monocytes Percent Auto 6.5 % (2-11); Neutrophils Percent Auto 81.3 % (45-73); Platelet Count 131 X10*3/uL (160-400); Red Blood Count 4.65 X10*6/uL (4.60-5.80); White Blood Count 6.2 X10*3/uL (4.8-10.8)
[2023-04-12 16:33] LABS: Anion Gap 15 (12-20); Blood Urea Nitrogen 48 mg/dL (9-16); Calcium 9.4 mg/dL (8.4-10.2); Carbon Dioxide 28 mmol/L (22-29); Chloride 102 mmol/L (96-108); Estimated Glomerular Filt Rate 29; Phosphorus 3.7 mg/dL (2.7-4.5); Potassium 4.3 mmol/L (3.3-5.1); Sodium 141 mmol/L (135-145); Uric Acid 9.9 mg/dL (3.4-7.0)
[2023-04-12 16:50] LABS: Vitamin D 25-OH Total 31.7 ng/mL (>30)
[2023-04-13 17:49] LABS: Calcium (PTHI) 9.3 mg/dL (8.6-10.3); PTHI 147 pg/mL (16-77)
[2023-04-13 21:33] LABS: PES - Abn Protein Band 1 0.4 g/dL (NONE DETECTED); Prot Elec - Alpha1 0.3 g/dL (0.2-0.3); Prot Elec - Beta 1 0.4 g/dL (0.4-0.6); Prot Elec - Beta 2 0.4 g/dL (0.2-0.5); Prot Elec - Gamma 1.2 g/dL (0.8-1.7); Prot Elec - Total Protein 7.2 g/dL (6.1-8.1)
== END 2023-04-12 12:21 | disposition home or self-care (01) ==
LOC: HO.HMGCX 12:20
PROVIDERS: Absent Provider Internal Medicine Nephrology; PCP Nurse Practitioner Family; Visit Provider Nurse Practitioner Family
DX: I48.91 Unspecified atrial fibrillation (principal); M25.551 Pain in right hip; M25.552 Pain in left hip; I12.9 Hypertensive chronic kidney disease with stage 1 through stage 4 chronic kidney disease, or unspecified chronic kidney disease; N18.31 Chronic kidney disease, stage 3a; Z79.01 Long term (current) use of anticoagulants
CPT/HCPCS: 36415; 73522; 80051; 82306; 82310; 82565; 83970; 84100; 84165; 84520; 84550; 85025; 85610

== ENCOUNTER 2023-04-16 11:14 | Outpatient (REF) | payer OTHER, SELFPAY ==
[2023-04-16 14:16] LABS: B Type Natriuretic Peptide 275 pg/mL (<100)
[2023-04-16 14:18] LABS: Troponin-I High Sensitivity 11.6 ng/L (<3.5-35.0)
== END 2023-04-16 11:15 | disposition home or self-care (01) ==
LOC: HO.LAB 11:14
PROVIDERS: PCP Nurse Practitioner Family; Visit Provider Internal Medicine Cardiovascular Disease
DX: I50.9 Heart failure, unspecified (principal); Z79.899 Other long term (current) drug therapy
CPT/HCPCS: 36415; 83880; 84484; 93005; 99212

== ENCOUNTER 2023-04-16 11:14 | Outpatient (AMB) | payer OTHER, MEDICAID, SELFPAY ==
[2023-04-16 11:29] VITALS: BP 120/70; PULSE 65; BMI 32.1
--- NOTE | 2023-04-16 11:29 | MHC.OFFVIS ---
Intake Vital Signs 04/16/23 11:29 Height 5 ft 7 in Weight 205 lb 0.478 oz BMI 32.1 BP 120/70 Blood Pressure Location Lt brachial Position Sitting Pulse 65 Intake Visit Reasons: 2 mth f/up Intake Note: 2 month follow-up c/o chest pain stayed in bed all weekend he thinks it was fluid build up Blood Bank Technician Required: No Allergies No Known Allergies [No Known Allergies*] Allergy (Verified 02/28/23 09:31) Medication List - Last Reconciled 04/16/23 by Bubba Mccullough MD albuterol sulfate 90 mcg/actuation (ProAir HFA) 2 puffs inhalation Q6H PRN 30 days amiodarone 200 mg PO DAILY atorvastatin 40 mg PO DAILY 90 days blood sugar diagnostic (Locaweb Ultra Test strips) Use to check fasting blood sugar and a random sugar daily blood-glucose meter (Locaweb Ultra2 Meter) Use to check fasting blood sugar and a random sugar daily fluticasone furoate-vilanterol 100-25 mcg/dose (Breo Ellipta) 1 ea inhalation DAILY furosemide 40 mg PO BID lancets (Extenda-Dent Delica Safety Lancet) Use to check fasting blood sugar and a random sugar daily lisinopril 5 mg PO DAILY metoprolol succinate ER (Toprol XL) 100 mg PO DAILY sildenafil 100 mg PO DAILY PRN 10 days trazodone 100 mg PO BEDTIME warfarin 2 mg See Protocol PO DAILY HPI HPI Comments History of Present Illness Details 83-year-old gentleman with nonischemic cardiomyopathy and background of atrial flutter. He has been experiencing significant episodes of atrial fibrillation based on device interrogations. He had at least 3 shocks by his device recently. On 1st occasion he was drinking alcohol and had a device shock which was thought to be due to atrial fibrillation. He also had recent episode where he had 3 device shocks and device interrogation currently showing tachycardia at approximately 200 beats per minute. The appearance looks like atrial flutter. We had previously tried a rhythm control strategy with him and he was given amiodarone but it appears he gained some weight after that and stop taking the amiodarone. When he was diagnosed with cardiomyopathy he was advised to be admitted the hospital to have a sotalol load but he has never agreed to be admitted to the hospital. He is denying chest discomfort currently. He is not complaining of any shortness of breath. He is saying before device shock he had nausea and sweating. He is saying that these symptoms are quite consistent before he had device shocks previously. He was started on amiodarone after discussion and since then has not had any shocks from his device. He has stop drinking alcohol. He has also stopped smoking in the last 4 months. He is taking medications regularly. He has EKG showing atrial fibrillation with occasional paced beats. He does not have any significant shortness of breath. No chest discomfort. 12/27/22: He is here for follow-up. He has been complaining of shortness of breath over the last week or so. He is saying he cannot lay flat in bed and gets orthopnea. Also walking around he is getting out of breath easily. Denying any peripheral edema or abdominal distension. He has been taking Lasix 40 mg once a day. Previously was advised to take 60 mg of Lasix. He is taking medications otherwise regularly. Recent echocardiography has shown EF of 30 35% which is mild improvement from severe dysfunction in the past. 02/07/23: On last visit we advised him to increase the Lasix to 40 mg twice a day. He was clinically overloaded at that time. Appears he took the Lasix for few days and then started having dizziness which she described like a vertigo like feeling. This is a chronic thing for him and has happened previously 2. After that episode he went back to Lasix once a day. He continues to have some shortness of breath and orthopnea. Still volume overloaded. 04/16/23: He returns for follow-up. He is saying he has some chest discomfort which was fullness/pressure over his chest lasting for many hours on . He said he went to bed and woke up without any significant issues. He was getting some breathing issues laying flat in bed. He has been drinking whiskey. He is saying he has not smoked cigarettes since . He was previously advised to take Lasix 40 mg twice a day but he has been taking it 2 to 3 times a week at b.i.d. dosing. Describing orthopnea at this point as well as weight gain. Excessive salt intake in diet and he ate ham on the day he had fullness in his chest. [facility], LAT[facility] Medical History (Updated 04/16/23 @ 12:08 by Bubba Mccullough MD) Atherosclerotic cardiovascular disease Fatigue High triglycerides Erectile dysfunction Typical atrial flutter Nonischemic cardiomyopathy Hearing loss COPD (chronic obstructive pulmonary disease) Chronic a-fib Atrial fibrillation Elevated blood sugar Asthma Hyperlipidemia HTN (hypertension) Stroke Surgical History History of appendectomy History of tonsillectomy Presence of single chamber implantable cardioverter-defibrillator (ICD) Family History Father Unknown family medical history Mother Unknown family medical history Social History Household Members: None Housing: Apartment Are you a primary acute care physical therapist to a significant other at home: No Do you presently have visiting nurse or other home services: No Alcohol intake: current Alcohol intake frequency: holidays/special occasions only Patient Tobacco Use Status: Current everyday Tobacco user Cigarettes Per Day: 4 Years Smoked: 70 +/- e-Cigarette/Vaping Use: Never Used Second Hand Smoke Exposure: No Advance Directives Date on File: 08/18/20 service: No Current occupational status: retired Cognitive needs: No Hearing needs: No Vision needs: No Review of Systems Const Denies chills, Denies fatigue, Denies fever(s), Denies frequent falls, Denies weakness, Denies weight gain and Denies weight loss ENT Denies dizziness Card Denies chest pain, Denies leg edema, Denies lightheadedness, Denies palpitations, Denies dyspnea, Denies dyspnea on exertion, Denies orthopnea and Denies other (loss of consciousness) Resp Denies cough, Denies dyspnea and Denies dyspnea on exertion GI Denies hematochezia and Denies change in stool character Musc Denies abnormal gait, Denies muscle weakness, Denies numbness, Denies radiating pain into limb and Denies tingling Neuro Denies abnormal gait, Denies dizziness, Denies frequent falls, Denies numbness, Denies tingling and Denies weakness Endo Denies fatigue and Denies palpitations Physical Exam Vital Signs: Last Vital Signs Pulse 65 04/16/23 11:29 BP 120/70 04/16/23 11:29 BMI result Body Mass Index 32.1 GENERAL APPEARANCE: in no acute distress, pleasant. NECK: no carotid bruit, + jugular venous distention. + hepatojugular reflux. SKIN: no suspicious lesions, warm and dry. HEART: no murmurs, irregular rate and rhythm. LUNGS: Crackles at bases. ABDOMEN: soft, nontender. Distended. EXTREMITIES: no edema. PERIPHERAL PULSES: equal. NEUROLOGIC: No gross deficits, AAO X 3 Office Procedures EKG Details: Fibrillation 65 beats per minute, left anterior fascicular block, septal infarct, QTC 434 milliseconds. [id number], Complete Assessment & Plan Assessment & Plan (1) Acute on chronic heart failure: Code(s): I50.9 - Heart failure, unspecified Plan Pleasant 83 year gentleman who is here for follow-up. He has background history of nonischemic cardiomyopathy. Previous visits he was volume overloaded and was advised to increase Lasix to 40 mg twice a day. He has been using Lasix once a day mostly and takes b.i.d. on 2-3 days per week. He had episode of chest discomfort after eating ham. He said he felt for in his chest and was also experiencing some orthopnea like episodes. Clinically appears to be volume overloaded. I have advised him to increase the Lasix to 80 mg in the morning and 40 in the afternoon for 1 week. We will call him in 1 week to check on him and will probably adjust his Lasix dose at that stage. I have advised him against salt intake specially can food and him. I have also explained to him that if he is drinking hard liquor then this can affect the heart function and recovery in the future. On Coumadin for anticoagulation for atrial fibrillation. He has permanent atrial fibrillation at this point. On amiodarone and has been tolerating it fine. Thank you for allowing me to participate in the care of your patient. Please feel free to contact me if you have any questions. Orders: Orders Troponin-I High Sensitivity Today I50.9 - Heart failure, unspecified B Type Natriuretic Peptide Today I50.9 - Heart failure, unspecified Coding Level of Care Code Est Pt Level 4 (53284) Diagnoses Acute on chronic heart failure I50.9 CPT Codes EKG - CPT: 15501-[id number], Complete ([id number])
== END 2023-04-16 12:07 | disposition home or self-care (01) ==
PROVIDERS: PCP Nurse Practitioner Family; Visit Provider Internal Medicine Cardiovascular Disease
DX: I50.9 Heart failure, unspecified (principal)
CPT/HCPCS: 93010; 99214

== ENCOUNTER 2023-04-19 13:04 | Outpatient (REF) | payer OTHER, SELFPAY ==
[2023-04-19 16:33] LABS: INTERNATIONAL NORM RATIO 2.9 (0.9-1.1); Prothrombin Time 35.3 SEC (11.1-13.3)
== END 2023-04-19 13:05 | disposition home or self-care (01) ==
LOC: HO.HMGCLR 13:04
PROVIDERS: PCP Nurse Practitioner Family; Visit Provider Nurse Practitioner Family
DX: I48.91 Unspecified atrial fibrillation (principal); Z79.01 Long term (current) use of anticoagulants
CPT/HCPCS: 36415; 85610

== ENCOUNTER → 2023-04-20 23:59 | Outpatient (BNV) | payer OTHER, SELFPAY ==
--- NOTE | 2023-05-07 09:32 | A.OFFVIS_ITS ---
Intake Intake Visit Reasons: Remote HF Monitoring- Medtronic Allergies No Known Allergies [No Known Allergies*] Allergy (Verified 04/24/23 22:30) PFSH Medical History Atherosclerotic cardiovascular disease Fatigue High triglycerides Erectile dysfunction Typical atrial flutter Nonischemic cardiomyopathy Hearing loss COPD (chronic obstructive pulmonary disease) Chronic a-fib Atrial fibrillation Elevated blood sugar Asthma Hyperlipidemia HTN (hypertension) Stroke Surgical History Presence of single chamber implantable cardioverter-defibrillator (ICD) History of appendectomy History of tonsillectomy Family History Father Unknown family medical history Mother Unknown family medical history Household Members: None Housing: Apartment Are you a primary customer care specialist to a significant other at home: No Do you presently have visiting nurse or other home services: No Alcohol intake: current Alcohol intake frequency: holidays/special occasions only Patient Tobacco Use Status: Current everyday Tobacco user Cigarettes Per Day: 4 Years Smoked: 70 +/- e-Cigarette/Vaping Use: Never Used Second Hand Smoke Exposure: No Advance Directives Date on File: 08/18/20 service: No Current occupational status: retired Cognitive needs: No Hearing needs: No Vision needs: No Office Procedures Cardiac Device Check Cardiac Device Check Details: HF monitoring Stable thoracic impedance Permanent Afib. [id number] Cardiac Device Interrogation, cardio physiologic monitor Procedure code (CPT) selection complete Assessment & Plan Assessment & Plan (1) Chronic heart failure: Code(s): I50.9 - Heart failure, unspecified Coding Level of Care Code Procedure Only Diagnoses Chronic heart failure I50.9 CPT Codes Cardiac Device Check - Cardiac Device 15: [id number] Cardiac Device Interrog ation, cardio physiologic monitor ([id number])
== END ==
PROVIDERS: PCP Nurse Practitioner Family; Visit Provider Internal Medicine Cardiovascular Disease
DX: I50.9 Heart failure, unspecified (principal)
CPT/HCPCS: 93297

== ENCOUNTER → 2023-04-20 23:59 | Outpatient (BNV) | payer OTHER, SELFPAY ==
--- NOTE | 2023-05-07 09:30 | A.OFFVIS_ITS ---
Intake Intake Visit Reasons: Remote ICD Check- Medtronic Allergies No Known Allergies [No Known Allergies*] Allergy (Verified 04/24/23 22:30) PFSH Medical History Atherosclerotic cardiovascular disease Fatigue High triglycerides Erectile dysfunction Typical atrial flutter Nonischemic cardiomyopathy Hearing loss COPD (chronic obstructive pulmonary disease) Chronic a-fib Atrial fibrillation Elevated blood sugar Asthma Hyperlipidemia HTN (hypertension) Stroke Surgical History Presence of single chamber implantable cardioverter-defibrillator (ICD) History of appendectomy History of tonsillectomy Family History Father Unknown family medical history Mother Unknown family medical history Household Members: None Housing: Apartment Are you a primary career representative to a significant other at home: No Do you presently have visiting nurse or other home services: No Alcohol intake: current Alcohol intake frequency: holidays/special occasions only Patient Tobacco Use Status: Current everyday Tobacco user Cigarettes Per Day: 4 Years Smoked: 70 +/- e-Cigarette/Vaping Use: Never Used Second Hand Smoke Exposure: No Advance Directives Date on File: 08/18/20 service: No Current occupational status: retired Cognitive needs: No Hearing needs: No Vision needs: No Office Procedures Cardiac Device Check Cardiac Device Check Details: ICD Good battery life. Permanent Afib. No new alerts. [id number] Cardiac Device Interrogation, pacemaker or defibrillator Procedure code (CPT) selection complete Assessment & Plan Assessment & Plan (1) Chronic heart failure: Code(s): I50.9 - Heart failure, unspecified Coding Level of Care Code Procedure Only Diagnoses Chronic heart failure I50.9 CPT Codes Cardiac Device Check - Cardiac Device 14: [id number] Cardiac Device Interrogation, pacemaker or defibrillator ([id number])
== END ==
PROVIDERS: PCP Nurse Practitioner Family; Visit Provider Internal Medicine Cardiovascular Disease
DX: I42.9 Cardiomyopathy, unspecified (principal); Z95.810 Presence of automatic (implantable) cardiac defibrillator
CPT/HCPCS: 93295

== ENCOUNTER 2023-04-24 09:45 | Outpatient (REF) | payer OTHER, MEDICAID, SELFPAY ==
[2023-04-24 16:44] LABS: Urine Cytology See Pathology rpt
== END 2023-04-24 09:46 | disposition home or self-care (01) ==
LOC: HO.LNP 09:45
PROVIDERS: PCP Nurse Practitioner Family; Visit Provider Nurse Practitioner Family
DX: R30.0 Dysuria (principal); N40.0 Benign prostatic hyperplasia without lower urinary tract symptoms; R31.29 Other microscopic hematuria
CPT/HCPCS: 51798; 81003; 88112; 99202

== ENCOUNTER 2023-04-24 09:45 | Outpatient (AMB) | payer OTHER, MEDICAID, SELFPAY ==
--- NOTE | 2023-04-24 10:09 | A.OFFVIS_ITS ---
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 Urology Medications: none Blood Thinner: warfarin PVR:0ml's Public Affairs Specialist Required: No Accompanied by: Self / Same As Patient Allergies No Known Allergies [No Known Allergies*] Allergy (Verified 04/24/23 22:30) Medication List - Last Reconciled 04/24/23 by EMILY Redman-PRABHU albuterol sulfate 90 mcg/actuation (ProAir HFA) 2 puffs inhalation Q6H PRN 30 days amiodarone 200 mg PO DAILY atorvastatin 40 mg PO DAILY 90 days blood sugar diagnostic (SimpliField Ultra Test strips) Use to check fasting blood sugar and a random sugar daily blood-glucose meter (One Monthuch Ultra2 Meter) Use to check fasting blood sugar and a random sugar daily fluticasone furoate-vilanterol 100-25 mcg/dose (Breo Ellipta) 1 ea inhalation DAILY furosemide 40 mg PO BID lancets (Orchestrate Orthodontic Technologiesuch Delica Safety Lancet) Use to check fasting blood sugar and a random sugar daily lisinopril 5 mg PO DAILY metoprolol succinate ER (Toprol XL) 100 mg PO DAILY sildenafil 100 mg PO DAILY PRN 10 days trazodone 100 mg PO BEDTIME warfarin 2 mg See Protocol PO DAILY HPI HPI Comments History of Present Illness Details Eder is a very pleasant 83 year old male patient of Dr. Childs. He has a past medical history of atherosclerotic cardiovascular disease, fatigue, ED, typical atrial flutter, nonischemic cardiomyopathy, hearing loss, COPD, chronic AFib, asthma, hyperlipidemia, hypertension, and stroke. He presents to the office today as a new patient for question of BPH. In discussion with the patient today he reports following up with nephrology and suggestion was made for urology follow up for further assessment and evalaution. In discussion with the patient today reports to be doing and feeling well. He reports noting urinary frequency however relates this to when he takes his diuretics. When asked he does report nocturia 1-2 times per night. He otherwise denies incontinence, hematuria, dysuria, foul smelling urine, changes to urinary stream, flank pain, fever, and or chills. He is happy with his current voiding parameters. In office urinalysis results reviewed with the patient today. Microscopic hematuria noted. Discussed at length potential causes of microscopic hematuria as well as further workup. PVR 0 mL. Patient currently denies any bothersome urinary issues or concerns. Discussed obtaining PSA and bladder ultrasound for further assessment evaluation. In review of patient's chart it appears recent renal ultrasound noting right kidney is normal in size, contour, and echogenicity. 2 x 1.3 x 1.4 cm echogenic lesion in the upper pole questionable for an angiomyolipoma. 2 cm simple cyst in the lower pole. No imaging follow-up of renal cysts recommended. No calculi. No hydronephrosis. Left kidney is normal in size, contour, and echogenicity. No calculi or lesions noted. No hydronephrosis. He otherwise offers no other issues or concerns at this time. [facility] Medical History Atherosclerotic cardiovascular disease Fatigue High triglycerides Erectile dysfunction Typical atrial flutter Nonischemic cardiomyopathy Hearing loss COPD (chronic obstructive pulmonary disease) Chronic a-fib Atrial fibrillation Elevated blood sugar Asthma Hyperlipidemia HTN (hypertension) Stroke Surgical History Presence of single chamber implantable cardioverter-defibrillator (ICD) History of appendectomy History of tonsillectomy Family History Father Unknown family medical history Mother Unknown family medical history Social History Household Members: None Housing: Apartment Are you a primary gericare aide to a significant other at home: No Do you presently have visiting nurse or other home services: No Alcohol intake: current Alcohol intake frequency: holidays/special occasions only Patient Tobacco Use Status: Current everyday Tobacco user Cigarettes Per Day: 4 Years Smoked: 70 +/- e-Cigarette/Vaping Use: Never Used Second Hand Smoke Exposure: No Advance Directives Date on File: 08/18/20 service: No Current occupational status: retired Cognitive needs: No Hearing needs: No Vision needs: No Review of Systems Const Reports as per HPI Eyes Reports no additional complaints ENT Reports as per HPI Card Reports as per HPI Resp Reports as per HPI GI Reports as per HPI Reports as per HPI Musc Reports no additional complaints Neuro Reports as per HPI Psych Reports no additional complaints Endo Reports as per HPI Tommy/Lymph Reports no additional complaints Aller/Immun Reports no additional complaints Physical Exam Const General: cooperative, comfortable, no acute distress, well developed, alert and awake Orientation/consciousness: patient oriented x3 HEENT Other: bilaterally hearing aides Head: Yes normal to inspection, Yes normocephalic and Yes atraumatic Ears: hearing grossly normal bilaterally Eyes General: appearance normal, both eyes and all related structures Neck Neck: Yes normal visual inspection and Yes trachea midline Chest Chest palpation & inspection: normal inspection of the chest Resp Effort & Inspection: normal respiratory effort and able to speak in complete sentences Cardio Rate: regular rate GI Inspection: Yes normal to inspection General: Yes no CVA tenderness Back/Spine/Pelvis Back: no CVA tenderness Skin General skin exam: no rashes or lesions noted Neuro General: patient oriented x3 Extrem General: Yes normal to inspection Psych Appearance: grossly normal and well kempt Mental Status: mental status grossly normal Speech and movement: Normal speech and movement present and Clear speech present Affect: normal affect Attitude: cooperative Thought process: Normal thought process present Thought content: Normal thought content present Insight: Fair insight present (Psych) Judgement: Fair judgement present (Psych) Office Procedures Post Void Residual Post Residual Void Post Void Residual (PVR): 0 [id number] Void Residual by ultrasound Results AMB Urinalysis, Automated UA Leukoctes 0 Emma/uL Last Edit by GL 2ours Carlos on 04/24/23 10:27 UA Nitrite Negative Last Edit by RodrigoCheezburger on 04/24/23 10:27 UA Urobilinogen 0.2 mg/dL Last Edit by [employer] on 04/24/23 10:27 UA Protein 15 mg/dL Last Edit by [employer] on 04/24/23 10:27 UA pH 5.5 Last Edit by [employer] on 04/24/23 10:27 UA Blood 10 Mart/uL Last Edit by [employer] on 04/24/23 10:27 UA Specific [place] 1.020 Last Edit by [employer] on 04/24/23 10:27 UA Ketone Negative Last Edit by [employer] on 04/24/23 10:27 UA Bilirubin 0 mg/dL Last Edit by [employer] on 04/24/23 10:27 UA Glucose 0 mg/dL Last Edit by Daysi Gonzalez on 04/24/23 10:27 Results Reviewed Results Reviewed: Laboratory Last Values Urine pH (Auto) 5.5 04/24/23 10:13 Specific [place] (Auto) 1.020 04/24/23 10:13 Urine Protein (Auto) 15 mg/dL 04/24/23 10:13 Glucose (UA)(Auto) 0 mg/dL 04/24/23 10:13 Urine Ketones (Auto) Negative 04/24/23 10:13 Urine Blood (Auto) 10 Mart/uL 04/24/23 10:13 Urine Nitrite (Auto) Negative 04/24/23 10:13 Urine Bilirubin (Auto) 0 mg/dL 04/24/23 10:13 Urine Urobilinogen (Auto) 0.2 mg/dL 04/24/23 10:13 Leukocyte Esterase (Auto) 0 Emma/uL 04/24/23 10:13 Assessment & Plan Assessment & Plan (1) Enlarged prostate: Code(s): N40.0 - Benign prostatic hyperplasia without lower urinary tract symptoms (2) Microscopic hematuria: Code(s): R31.29 - Other microscopic hematuria Plan In office urinalysis results reviewed with the patient today; as noted above; will send for urine cytology PVR 0 mL. Will obtain PSA for further assessment evaluation. Will obtain bladder ultrasound for further assessment evaluation. Patient denies any bothersome urinary issues or concerns. Patient reports be happy with current voiding parameters. Follow-up in 1-2 months with imaging and labs to be completed prior; or sooner with any issues, concerns, and or questions. Orders: Orders AMB Urinalysis Automated Today Z13.9 - Encounter for screening, unspecified AMB Post Void Residual by ultrasound Today Z13.9 - Encounter for screening, unspecified Prostate Specific Antigen Today N40.0 - Benign prostatic hyperplasia without lower urinary tract symptoms US bladder Today N40.0 - Benign prostatic hyperplasia without lower urinary tract symptoms Urine Cytology Today R30.0 - Dysuria Patient Instructions: The patient had an opportunity to ask questions regarding the treatment plan. All questions were answered. Physical exam, labs, and imaging were discussed and reviewed in detail. As well as risks, benefits, and discussion of treatment choices. No major barriers to understanding were identified. The patient expressed understanding and agreement with the above treatment plan. The patient was made aware they should contact our office by phone for worsening of their current condition, the appearance of new symptoms, or with any questions or concerns. Compliance is encouraged with any medications and follow up testing that is ordered. It is a privilege to be allowed the opportunity to participate in? your urological care.? Again, if you have any questions or concerns If you have any questions or concerns please do not hesitate to contact me. The office is [phone]. This note is constructed using voice recognition software. While every effort has been made to ensure accuracy stopper maker helper errors may have been included. Yours sincerely, EMILY Redman- Coding Level of Care Code New Pt Level 3 (65114) Diagnoses Enlarged prostate N40.0 Microscopic hematuria R31.29 CPT Codes Post Residual Void - PVR CPT Code: 64389-[id number] Void Residual by ultrasound ([id number])
== END 2023-04-24 11:04 | disposition home or self-care (01) ==
PROVIDERS: PCP Nurse Practitioner Family; Visit Provider Nurse Practitioner Family
DX: N40.0 Benign prostatic hyperplasia without lower urinary tract symptoms (principal); R31.29 Other microscopic hematuria
CPT/HCPCS: 99203; 99213

== ENCOUNTER 2023-04-26 13:19 | Outpatient (REF) | payer OTHER, MEDICAID, SELFPAY ==
[2023-04-26 16:49] LABS: INTERNATIONAL NORM RATIO 3.3 (0.9-1.1); Prothrombin Time 40.8 SEC (11.1-13.3)
== END 2023-04-26 13:20 | disposition home or self-care (01) ==
LOC: HO.HMGCLDS 13:19
PROVIDERS: PCP Nurse Practitioner Family; Visit Provider Nurse Practitioner Family
DX: I48.91 Unspecified atrial fibrillation (principal); Z79.01 Long term (current) use of anticoagulants
CPT/HCPCS: 36415; 85610

== ENCOUNTER 2023-04-30 12:27 | Outpatient (REF) | payer OTHER, MEDICAID, SELFPAY ==
[2023-04-30 16:32] LABS: INTERNATIONAL NORM RATIO 2.4 (0.9-1.1); Prothrombin Time 29.4 SEC (11.1-13.3)
[2023-04-30 16:43] LABS: Prostate Specific Antigen 0.82 ng/mL (<0.05-4.0)
== END 2023-04-30 12:28 | disposition home or self-care (01) ==
LOC: HO.HMGCLR 12:27
PROVIDERS: Nurse Practitioner Family; PCP Nurse Practitioner Family; Visit Provider Nurse Practitioner Family
DX: I48.91 Unspecified atrial fibrillation (principal); N40.0 Benign prostatic hyperplasia without lower urinary tract symptoms; Z79.01 Long term (current) use of anticoagulants; Z12.5 Encounter for screening for malignant neoplasm of prostate
CPT/HCPCS: 36415; 84153; 85610

== ENCOUNTER 2023-05-07 12:19 | Outpatient (REF) | payer OTHER, MEDICAID, SELFPAY ==
[2023-05-07 13:17] LABS: Appearance Urine Clear; Color Urine Yellow; Glucose Urine UA Negative (Negative); Leukocyte Esterase Urine Negative (Negative); Nitrite Urine Negative (Negative); Urine Blood Negative (Negative); Urine Ketones Negative (Negative); Urine Protein Negative (Neg-Trace)
[2023-05-07 13:42] LABS: INTERNATIONAL NORM RATIO 3.7 (0.9-1.1); Prothrombin Time 44.7 SEC (11.1-13.3)
[2023-05-07 13:49] LABS: Estimated Average Glucose 148 mg/dL; Hemoglobin A1c % 6.8 % (<6.0)
[2023-05-07 14:13] LABS: Creatinine Urine 99.91 mg/dL
== END 2023-05-07 12:20 | disposition home or self-care (01) ==
LOC: HO.HMGCLR 12:19
PROVIDERS: PCP Nurse Practitioner Family; Visit Provider Nurse Practitioner Family
DX: E11.9 Type 2 diabetes mellitus without complications (principal); I48.91 Unspecified atrial fibrillation; H91.90 Unspecified hearing loss, unspecified ear; Z79.01 Long term (current) use of anticoagulants
CPT/HCPCS: 36415; 81003; 82043; 82570; 83036; 84443; 85610

== ENCOUNTER 2023-05-14 12:21 | Outpatient (REF) | payer OTHER, MEDICAID, SELFPAY ==
[2023-05-14 14:03] LABS: INTERNATIONAL NORM RATIO 2.7 (0.9-1.1); Prothrombin Time 33.3 SEC (11.1-13.3)
== END 2023-05-14 12:22 | disposition home or self-care (01) ==
LOC: HO.HMGCLR 12:21
PROVIDERS: PCP Nurse Practitioner Family; Visit Provider Nurse Practitioner Family
DX: I48.91 Unspecified atrial fibrillation (principal); H91.90 Unspecified hearing loss, unspecified ear; Z79.01 Long term (current) use of anticoagulants
CPT/HCPCS: 36415; 85610

== ENCOUNTER 2023-05-18 13:02 | Outpatient (AMB) | payer OTHER, MEDICAID, SELFPAY ==
--- NOTE | 2023-05-18 13:40 | HO.NEPHOV ---
HPI HPI Comments History of Present Illness Details I had the privilege of seeing Macho in follow-up of his chronic kidney disease. He is tolerating HANNA-inhibitor. He is on diuretics. He does not have any chest pain, shortness of breath, proximal nocturnal dyspnea, orthopnea. His urine output is good. He avoids nonsteroidal anti-inflammatories. He is closely followed up with Cardiology. He has erectile dysfunction and has been started on medications. He has no symptoms of peripheral arterial disease. He claims to be compliant with his medications. He does not have any orthostasis. [facility] Medical History Atherosclerotic cardiovascular disease Fatigue High triglycerides Erectile dysfunction Typical atrial flutter Nonischemic cardiomyopathy Hearing loss COPD (chronic obstructive pulmonary disease) Chronic a-fib Atrial fibrillation Elevated blood sugar Asthma Hyperlipidemia HTN (hypertension) Stroke Surgical History Presence of single chamber implantable cardioverter-defibrillator (ICD) History of appendectomy History of tonsillectomy Family History Father Unknown family medical history Mother Unknown family medical history Social History Household Members: None Housing: Apartment Are you a primary critical care educator to a significant other at home: No Do you presently have visiting nurse or other home services: No Alcohol intake: current Alcohol intake frequency: holidays/special occasions only Patient Tobacco Use Status: Current everyday Tobacco user Cigarettes Per Day: 4 Years Smoked: 70 +/- e-Cigarette/Vaping Use: Never Used Second Hand Smoke Exposure: No Advance Directives Date on File: 08/18/20 service: No Current occupational status: retired Cognitive needs: No Hearing needs: No Vision needs: No Vital Signs 05/18/23 13:41 Height 5 ft 7 in Weight 210 lb 6 oz BMI 32.9 BP 100/60 Blood Pressure Location Lt brachial Position Sitting Pulse 63 Pulse Source Pulse Oximeter Physical Exam Vital Signs: Last Vital Signs Pulse 63 05/18/23 13:41 BP 100/60 05/18/23 13:41 BMI result Body Mass Index 32.9 Const General: comfortable and no acute distress Orientation/consciousness: patient oriented x3 HEENT Head: Yes normocephalic Mouth: Normal oral and palatal mucosa present Eyes EOM: EOMs intact bilaterally Neck Neck: Yes supple Resp Auscultation: clear to auscultation bilaterally Cardio Jugular venous distension: no JVD Rate: regular rate GI Palpation (GI): Soft to palpation Auscultation: normal bowel sounds General: Yes no CVA tenderness Back/Spine/Pelvis Back: no CVA tenderness Skin General skin exam: no rashes or lesions noted Neuro General: patient oriented x3 and moves all extremities Extrem General: Yes no pedal edema Assessment & Plan Assessment & Plan (1) CKD (chronic kidney disease) stage 4, GFR 15-29 ml/min: Code(s): N18.4 - Chronic kidney disease, stage 4 (severe) (2) HTN (hypertension): Code(s): I10 - Essential (primary) hypertension Qualifiers: Hypertension type: primary hypertension Qualified Code(s): I10 - Essential (primary) hypertension Plan Macho has history of nonischemic cardiomyopathy. He is on HANNA-inhibitor and diuretics. He had a device put in and is closely followed by his material carrier. He tries to use a minimal dietary sodium. His serum creatinine has been around 2. He will be a candidate for Farxiga or Jardiance. I shall initiate him on the same after reviewing the next set of lab data. I did not make any medication changes at this visit. All his questions were answered. Follow-up given. Orders: Orders Electrolytes 05/18/23 N18.4 - Chronic kidney disease, stage 4 (severe) Creatinine 05/18/23 N18.4 - Chronic kidney disease, stage 4 (severe) Calcium 05/18/23 N18.4 - Chronic kidney disease, stage 4 (severe) Phosphorus 05/18/23 N18.4 - Chronic kidney disease, stage 4 (severe) Immunofixation Pnl, Serum 05/18/23 N18.4 - Chronic kidney disease, stage 4 (severe) Blood Urea Nitrogen 05/18/23 N18.4 - Chronic kidney disease, stage 4 (severe) Complete Blood Count Auto Diff 05/18/23 N18.4 - Chronic kidney disease, stage 4 (severe) Protein Creatinine Ratio, Ur 05/18/23 N18.4 - Chronic kidney disease, stage 4 (severe) Vitamin D 25-OH Total 05/18/23 N18.4 - Chronic kidney disease, stage 4 (severe) Parathyroid Hormone Intact 05/18/23 N18.4 - Chronic kidney disease, stage 4 (severe) Coding Level of Care Code Est Pt Level 3 (12972) Diagnoses CKD (chronic kidney disease) stage 4, GFR 15-29 ml/min N18.4 Primary hypertension I10 Hypertension type: primary hypertension Results Reviewed Nephrology Results: Urine Protein Negative mg/dL (Neg-Trace) 05/07/23 Urine Creatinine 99.91 mg/dL 05/07/23
[2023-05-18 13:41] VITALS: BP 100/60; PULSE 63; BMI 32.9
== END 2023-05-18 14:20 | disposition home or self-care (01) ==
PROVIDERS: PCP Nurse Practitioner Family; Visit Provider Internal Medicine Nephrology
DX: I12.9 Hypertensive chronic kidney disease with stage 1 through stage 4 chronic kidney disease, or unspecified chronic kidney disease (principal); N18.4 Chronic kidney disease, stage 4 (severe)
CPT/HCPCS: 99213

== ENCOUNTER → 2023-05-18 13:02 | Outpatient (BNVA) | payer OTHER, MEDICAID, SELFPAY | PROVIDERS: PCP Nurse Practitioner Family; Visit Provider Internal Medicine Nephrology | DX: I12.9 Hypertensive chronic kidney disease with stage 1 through stage 4 chronic kidney disease, or unspecified chronic kidney disease (principal); N18.4 Chronic kidney disease, stage 4 (severe) | CPT/HCPCS: 99212 ==

== ENCOUNTER 2023-05-21 12:38 | Outpatient (REF) | payer OTHER, MEDICAID, SELFPAY ==
[2023-05-21 16:12] LABS: INTERNATIONAL NORM RATIO 1.8 (0.9-1.1); Prothrombin Time 21.6 SEC (11.1-13.3)
== END 2023-05-21 12:39 | disposition home or self-care (01) ==
LOC: HO.HMGCLR 12:38
PROVIDERS: PCP Nurse Practitioner Family; Visit Provider Nurse Practitioner Family
DX: I48.91 Unspecified atrial fibrillation (principal); H91.90 Unspecified hearing loss, unspecified ear; Z79.01 Long term (current) use of anticoagulants
CPT/HCPCS: 36415; 85610

== ENCOUNTER → 2023-05-21 23:59 | Outpatient (BNV) | payer OTHER, MEDICAID, SELFPAY ==
--- NOTE | 2023-05-21 17:30 | A.OFFVIS_ITS ---
Intake Intake Visit Reasons: Remote HF Monitoring- [employer] Allergies No Known Allergies [No Known Allergies*] Allergy (Verified 05/18/23 13:43) PFSH Medical History Atherosclerotic cardiovascular disease Fatigue High triglycerides Erectile dysfunction Typical atrial flutter Nonischemic cardiomyopathy Hearing loss COPD (chronic obstructive pulmonary disease) Chronic a-fib Atrial fibrillation Elevated blood sugar Asthma Hyperlipidemia HTN (hypertension) Stroke Surgical History Presence of single chamber implantable cardioverter-defibrillator (ICD) History of appendectomy History of tonsillectomy Family History Father Unknown family medical history Mother Unknown family medical history Social History Household Members: None Housing: Apartment Are you a primary neonatal intensive care nurse to a significant other at home: No Do you presently have visiting nurse or other home services: No Alcohol intake: current Alcohol intake frequency: holidays/special occasions only Patient Tobacco Use Status: Current everyday Tobacco user Cigarettes Per Day: 4 Years Smoked: 70 +/- e-Cigarette/Vaping Use: Never Used Second Hand Smoke Exposure: No Advance Directives Date on File: 08/18/20 service: No Current occupational status: retired Cognitive needs: No Hearing needs: No Vision needs: No Office Procedures Cardiac Device Check Cardiac Device Check Details: HF monitoring Stable thoracic impedance Persistent Afib. [id number] Cardiac Device Interrogation, cardio physiologic monitor Procedure code (CPT) selection complete Assessment & Plan Assessment & Plan (1) Acute on chronic heart failure: Code(s): I50.9 - Heart failure, unspecified Plan: Orders: Orders AMB Cardiac Device Follow-up Today I50.9 - Heart failure, unspecified Coding Level of Care Code Procedure Only Diagnoses Acute on chronic heart failure I50.9 CPT Codes Cardiac Device Check - Cardiac Device 15: [id number] Cardiac Device Interrogation, cardio physiologic monitor ([id number])
== END ==
PROVIDERS: PCP Nurse Practitioner Family; Visit Provider Internal Medicine Cardiovascular Disease
DX: I50.9 Heart failure, unspecified (principal); Z95.810 Presence of automatic (implantable) cardiac defibrillator
CPT/HCPCS: 93297

== ENCOUNTER 2023-05-29 09:55 | Outpatient (REF) | payer OTHER, MEDICAID, SELFPAY ==
[2023-05-29 13:36] LABS: INTERNATIONAL NORM RATIO 2.4 (0.9-1.1); Prothrombin Time 28.8 SEC (11.1-13.3)
== END 2023-05-29 09:56 | disposition home or self-care (01) ==
LOC: HO.HMGCLR 09:55
PROVIDERS: PCP Nurse Practitioner Family; Visit Provider Nurse Practitioner Family
DX: I48.91 Unspecified atrial fibrillation (principal); H91.90 Unspecified hearing loss, unspecified ear; Z79.01 Long term (current) use of anticoagulants
CPT/HCPCS: 36415; 85610

== ENCOUNTER 2023-05-31 13:38 | Outpatient (AMB) | payer OTHER, MEDICAID, SELFPAY ==
--- NOTE | 2023-05-31 13:50 | A.OFFPC_ITS ---
Vital Signs 05/31/23 13:52 Weight 210 lb BP 116/76 Blood Pressure Location Lt brachial Position Sitting Pulse 71 Pulse Source Pulse Oximeter Pulse Oximetry (%) 98 Oxygen Delivery Method Room Air Intake Visit Reasons: 3 month fu Allergies No Known Allergies [No Known Allergies*] Allergy (Verified 05/31/23 13:52) Medication List - Last Reconciled 05/31/23 by Dagoberto Childs, WOOD MACHINIST- albuterol sulfate 90 mcg/actuation (ProAir HFA) 2 puffs inhalation Q6H PRN 30 days amiodarone 200 mg PO DAILY atorvastatin 40 mg PO DAILY 90 days blood sugar diagnostic ([employer]ix Ultra Test strips) Use to check fasting blood sugar and a random sugar daily blood-glucose meter (Exacteruch Ultra2 Meter) Use to check fasting blood sugar and a random sugar daily fluticasone furoate-vilanterol 100-25 mcg/dose (Breo Ellipta) 1 ea inhalation DAILY furosemide 20 mg PO DIRECTED lancets ([employer] Delica Safety Lancet) Use to check fasting blood sugar and a random sugar daily lisinopril 5 mg PO DAILY metoprolol succinate ER (Toprol XL) 100 mg PO DAILY nicotine 1 patch transdermal DAILY sildenafil 100 mg PO DAILY PRN 10 days trazodone 100 mg PO BEDTIME warfarin 2 mg See Protocol PO DAILY Tobacco use date assessed: 02/28/23 Fall risk assessment: No Falls in past year Last assessed Fall Risk: 05/31/23 HPI 3 month fu HPI Details Pt is a diabetic, on an HANNA and a statin. Last A1C was 6.8, microalbumin is up to date. Denies polyuria, polydipsia, and neuropathy. Pt denies any signs and symptoms of hypoglycemia and does know how to correct it. Pt checks his blood sugar intermittently but is working on his diet. Pt c/o ongoing bilat hip pain. He had XRs which showed degenerative changes. Will refer to ortho. [facility] Medical History Atherosclerotic cardiovascular disease Fatigue High triglycerides Erectile dysfunction Typical atrial flutter Nonischemic cardiomyopathy Hearing loss COPD (chronic obstructive pulmonary disease) Chronic a-fib Atrial fibrillation Elevated blood sugar Asthma Hyperlipidemia HTN (hypertension) Stroke Surgical History Presence of single chamber implantable cardioverter-defibrillator (ICD) History of appendectomy History of tonsillectomy Family History Father Unknown family medical history Mother Unknown family medical history Social History Household Members: None Housing: Apartment Are you a primary healthcare management consultant to a significant other at home: No Do you presently have visiting nurse or other home services: No Alcohol intake: current Alcohol intake frequency: holidays/special occasions only Patient Tobacco Use Status: Current everyday Tobacco user Cigarettes Per Day: 4 Years Smoked: 70 +/- e-Cigarette/Vaping Use: Never Used Second Hand Smoke Exposure: No Advance Directives Date on File: 08/18/20 service: No Current occupational status: retired Cognitive needs: No Hearing needs: No Vision needs: No Questionnaire Thrive Questionnaire Date Thrive assessed: 06/15/22 RYANNE-7 AMB Questionnaire RYANNE-7 Date RYANNE - 7 assessed: 06/15/22 Source: Developed by Drs. James Kamara, Irina Flaherty, Gucci Zapata and colleagues, with an educational brayan from [employer]. Review of Systems Const Reports as per HPI Physical exam (Primary Care) Vital Signs: Last Vital Signs Pulse 71 05/31/23 13:52 BP 116/76 05/31/23 13:52 Pulse Ox 98 05/31/23 13:52 Oxygen Delivery Method Room Air 05/31/23 13:52 Tobacco/Smoking Status: Tobacco use Status Tobacco use date assessed 02/28/23 05/31/23 13:52 Patient Tobacco Use Status Current everyday Tobacco 05/31/23 13:52 e-Cigarette/Vaping Use Never Used 05/31/23 13:52 Thrive Assessment: Date of Thrive Assessment Date Thrive assessed 06/15/22 05/31/23 13:52 Const General: cooperative Orientation/consciousness: patient oriented x3 Resp Effort & Inspection: normal respiratory effort Auscultation: clear to auscultation bilaterally Cardio Rate: regular rate Rhythm: regular rhythm Heart sounds: S1 normal heart sound present and S2 normal heart sound present Neuro General: patient oriented x3 Extrem Other: bilat feet: + sensation with use of monofilament Right lower extremity: no edema Left lower extremity: no edema Psych Appearance: grossly normal Mental Status: mental status grossly normal Speech and movement: Normal speech and movement present Affect: normal affect Attitude: cooperative Thought process: Normal thought process present Thought content: Normal thought content present Insight: Good insight present (Psych) Judgement: Good judgement present (Psych) Assessment and Plan Assessment & Plan (1) Bilateral hip pain: Code(s): M25.551 - Pain in right hip; M25.552 - Pain in left hip Plan: Referred to ortho (2) Diabetes: Code(s): E11.9 - Type 2 diabetes mellitus without complications Plan The patient agreed to the use of a senior medical director for this encounter. Scribed for JESSY Urban by Candace Saez senior medical director, on 05/31/2023 at 14:10 EST. Orders: Orders Complete Blood Count Auto Diff Today E11.9 - Type 2 diabetes mellitus without complications Comprehensive [place]. Panel Fast Today E11.9 - Type 2 diabetes mellitus without complications TSH reflex Free T4 Today E11.9 - Type 2 diabetes mellitus without complications UA CC w/rflx Micro + Cult Today E11.9 - Type 2 diabetes mellitus without compl ications Lipid Panel Today E11.9 - Type 2 diabetes mellitus without complications Referrals Orthopedics Referral M25.551 - Pain in right hip, M25.552 - Pain in left hip Coding Level of Care Code Est Pt Level 3 (61351) Diagnoses Bilateral hip pain M25.551; M25.552 Diabetes E11.9
[2023-05-31 13:52] VITALS: BP 116/76; PULSE 71; O2SAT 98
== END 2023-05-31 14:34 | disposition home or self-care (01) ==
PROVIDERS: PCP Nurse Practitioner Family; Visit Provider Nurse Practitioner Family
DX: M25.551 Pain in right hip (principal); M25.552 Pain in left hip; E11.9 Type 2 diabetes mellitus without complications
CPT/HCPCS: 99213

== ENCOUNTER 2023-06-05 13:09 | Outpatient (AMB) | payer OTHER, MEDICAID, SELFPAY ==
[2023-06-05 13:20] VITALS: BP 114/74; PULSE 56; BMI 33.2
--- NOTE | 2023-06-05 13:20 | A.OFFVIS_ITS ---
Intake Vital Signs 06/05/23 13:20 Height 5 ft 7 in Weight 212 lb 1.355 oz BMI 33.2 BP 114/74 Blood Pressure Location Lt brachial Position Sitting Pulse 56 Pulse Source Monitor Intake Visit Reasons: r/s 6 wks f/u labs-chf Allergies No Known Allergies [No Known Allergies*] Allergy (Verified 06/05/23 13:25) Medication List - Last Reconciled 06/05/23 by Nevaeh Clifford, TORCH STRAIGHTENER-C albuterol sulfate 90 mcg/actuation (ProAir HFA) 2 puffs inhalation Q6H PRN 30 days amiodarone 200 mg PO DAILY atorvastatin 40 mg PO DAILY 90 days blood sugar diagnostic (enStage Ultra Test strips) Use to check fasting blood sugar and a random sugar daily blood-glucose meter (enStage Ultra2 Meter) Use to check fasting blood sugar and a random sugar daily fluticasone furoate-vilanterol 100-25 mcg/dose (Breo Ellipta) 1 ea inhalation DAILY furosemide 20 mg PO DIRECTED lancets ([employer] Delica Safety Lancet) Use to check fasting blood sugar and a random sugar daily lisinopril 5 mg PO DAILY metoprolol succinate ER (Toprol XL) 100 mg PO DAILY sildenafil 100 mg PO DAILY PRN 10 days trazodone 100 mg PO BEDTIME warfarin 2 mg See Protocol PO DAILY HPI r/s 6 wks f/u labs-chf HPI Details Eder is an 83-year-old male with past medical history of hypertension, hyperlipidemia, diabetes, nonischemic cardiomyopathy, atrial fibrillation, mild aortic stenosis who presents for follow-up. Today he reports that he has been gaining some weight. He tells me that he eats a lot and is sedentary. He will get up in the night and eat at 01:00 then go back to bed. No chest discomfort at rest or with activity. He does have some shortness of breath with activity. He can feel heart palpitations at times. No presyncope, syncope, falls. No PND, orthopnea or edema. He is taking all meds as directed. No bleeding issues reported. [facility] Medical History Atherosclerotic cardiovascular disease Fatigue High triglycerides Erectile dysfunction Typical atrial flutter Nonischemic cardiomyopathy Hearing loss COPD (chronic obstructive pulmonary disease) Chronic a-fib Atrial fibrillation Elevated blood sugar Asthma Hyperlipidemia HTN (hypertension) Stroke Surgical History Presence of single chamber implantable cardioverter-defibrillator (ICD) History of appendectomy History of tonsillectomy Family History Father Unknown family medical history Mother Unknown family medical history Social History Household Members: None Housing: Apartment Are you a primary manager medicare marketing to a significant other at home: No Do you presently have visiting nurse or other home services: No Alcohol intake: current Alcohol intake frequency: holidays/special occasions only Patient Tobacco Use Status: Current everyday Tobacco user Cigarettes Per Day: 4 Years Smoked: 70 +/- e-Cigarette/Vaping Use: Never Used Second Hand Smoke Exposure: No Advance Directives Date on File: 08/18/20 service: No Current occupational status: retired Cognitive needs: No Hearing needs: No Vision needs: No Review of Systems Const All systems reviewed & are unremarkable except as noted in HPI and below Reports fatigue ENT Denies dizziness Card Denies chest pain, Denies chest pain at rest, Denies chest pain with activity, Denies rapid heart rate, Denies pedal edema, Denies edema, Denies leg edema, Denies lightheadedness, Denies palpitations, Denies dyspnea, Reports dyspnea on exertion and Denies orthopnea Resp Denies cough, Denies dyspnea and Reports dyspnea on exertion GI Denies hematochezia and Denies change in stool character Musc Denies abnormal gait, Denies limited range of motion, Denies muscle cramps, Denies muscle weakness, Denies numbness, Denies radiating pain into limb, Denies stiffness and Denies tingling Neuro Denies abnormal gait, Denies dizziness, Denies numbness and Denies tingling Endo Reports fatigue and Denies palpitations Physical Exam Vital Signs: Last Vital Signs Pulse 56 06/05/23 13:20 BP 114/74 06/05/23 13:20 BMI result Body Mass Index 33.2 Const General: cooperative, healthy appearing, comfortable and no acute distress Orientation/consciousness: patient oriented x3 Neck Neck: Yes normal visual inspection Resp Effort & Inspection: normal respiratory effort Auscultation: clear to auscultation bilaterally, no crackles, no rales, no rhonchi and no wheezes Cardio Jugular venous distension: no JVD Rate: regular rate Rhythm: regular rhythm Heart sounds: S1 normal heart sound present, S2 normal heart sound present, no murmurs and no rubs Neuro General: patient oriented x3 Extrem General: Yes normal to inspection and No no pedal edema Psych Appearance: grossly normal Mental Status: mental status grossly normal Speech and movement: Normal speech and movement present Office Procedures EKG Details: Today, read by me, Afib, slow Ventricular rate, left axis, inferior Q waves, anteroseptal Q waves, cant exclude prior SD, rate 56, QTc 409ms. [id number], Complete Assessment & Plan Assessment & Plan (1) A-fib: Code(s): I48.91 - Unspecified atrial fibrillation Plan: History of paroxysmal atrial fibrillation. Remote monitoring of his pacemaker shows frequent PAF. Patient does report occasional heart palpitations, nothing to concerning. EKG done today showing atrial fibrillation, slow ventricular response, rate 56. He denies any weakness, lightheadedness. He is on amiodarone for rhythm control and metoprolol XL for heart rate control. He is on Coumadin for anticoagulation. He follows with the [facility] anticoagulation Cli waqas. INR goal 2-3. No bleeding issues reported. Will check with his primary steward/stewardess dining room Dr. Mccullough regarding amiodarone use as he is having PAF. (2) Nonischemic cardiomyopathy: Code(s): I42.8 - Other cardiomyopathies Plan: History of nonischemic cardiomyopathy. Last echo done 12/18/2022 showing EF 30- 35%, basal inferior akinetic, mild aortic stenosis, moderate pulmonary hypertension. On last visit in April he had evidence of fluid overloaded his Lasix dose was increased to 80 mg in the morning and 40 mg in the evening. Today he reports he is only taking Lasix 40 mg daily. He dislikes the frequent urination with his Lasix use. He does report having some shortness of breath and his weight is over 200. He also describes over eating which can contribute to his weight gain. Has no leg edema or rales on examination. To help with his shortness of breath will have him increase his Lasix to 60 mg daily for the next 4 days then return back to 40 mg daily. Spent time reviewing signs and symptoms of heart failure with him. Informed he has at risks for holding onto fluid as long as his pumping power is below normal. Continue on metoprolol XL and lisinopril for neurohormonal modulation. Cardiology follow-up in 3-4 months, sooner if needed (3) Atherosclerotic cardiovascular disease: Code(s): I25.10 - Atherosclerotic heart disease of [place] coronary artery without angina pectoris Plan: No reports of anginal sounding symptoms. He is not on aspirin as he is on Coumadin. He is on atorvastatin and metoprolol. Signs and symptoms of angina reviewed. (4) Acute on chronic heart failure: Code(s): I50.9 - Heart failure, unspecified Qualifiers: Heart failure type: systolic Qualified Code(s): I50.23 - Acute on chronic systolic (congestive) heart failure Plan: As above Plan Time spent on chart review, documentation, interview and assessment Coding Level of Care Code Est Pt Level 4 (90706) Diagnoses A-fib I48.91 Nonischemic cardiomyopathy I42.8 Atherosclerotic cardiovascular disease I25.10 Acute on chronic systolic heart failure I50.23 Heart failure type: systolic CPT Codes EKG - CPT: [id number], Complete ([id number]) Time Spent (min) 28
== END 2023-06-05 14:10 | disposition home or self-care (01) ==
PROVIDERS: PCP Nurse Practitioner Family; Visit Provider Nurse Practitioner Family
DX: I48.91 Unspecified atrial fibrillation (principal); I42.8 Other cardiomyopathies; I25.10 Atherosclerotic heart disease of native coronary artery without angina pectoris; I50.23 Acute on chronic systolic (congestive) heart failure
CPT/HCPCS: 93010; 99214

== ENCOUNTER → 2023-06-05 13:09 | Outpatient (BNVA) | payer OTHER, MEDICAID, SELFPAY | PROVIDERS: PCP Nurse Practitioner Family; Visit Provider Nurse Practitioner Family | DX: I48.91 Unspecified atrial fibrillation (principal); I42.8 Other cardiomyopathies; I25.10 Atherosclerotic heart disease of native coronary artery without angina pectoris; I50.23 Acute on chronic systolic (congestive) heart failure | CPT/HCPCS: 93005; 99212 ==

== ENCOUNTER 2023-06-12 12:13 | Outpatient (REF) | payer OTHER, SELFPAY ==
[2023-06-12 13:25] LABS: INTERNATIONAL NORM RATIO 4.7 (0.9-1.1); Prothrombin Time 56.9 SEC (11.1-13.3)
== END 2023-06-12 12:14 | disposition home or self-care (01) ==
LOC: HO.HMGCLR 12:13
PROVIDERS: PCP Nurse Practitioner Family; Visit Provider Nurse Practitioner Family
DX: I48.91 Unspecified atrial fibrillation (principal); H91.90 Unspecified hearing loss, unspecified ear; Z79.01 Long term (current) use of anticoagulants
CPT/HCPCS: 36415; 85610

== ENCOUNTER 2023-06-13 12:24 | Outpatient (REF) | payer OTHER, SELFPAY | END 2023-06-13 12:25 | disposition home or self-care (01) | LOC: HO.HMGCX 12:24 | PROVIDERS: PCP Nurse Practitioner Family; Visit Provider Nurse Practitioner Family | DX: Z13.89 Encounter for screening for other disorder (principal) ==

== ENCOUNTER 2023-06-15 14:03 | Outpatient (REF) | payer OTHER, SELFPAY | END 2023-06-15 14:04 | disposition home or self-care (01) | LOC: HO.HMGCX 14:03 | PROVIDERS: PCP Nurse Practitioner Family; Visit Provider Nurse Practitioner Family | DX: N40.0 Benign prostatic hyperplasia without lower urinary tract symptoms (principal) | CPT/HCPCS: 76857 ==

== ENCOUNTER 2023-06-18 12:23 | Outpatient (AMB) | payer OTHER, MEDICAID, SELFPAY ==
--- NOTE | 2023-06-18 13:06 | MHC.OFFVIS ---
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 Childs. He has a past medical history of atherosclerotic cardiovascular disease, fatigue, ED, typical atrial flutter, nonischemic cardiomyopathy, hearing loss, COPD, chronic AFib, asthma, hyperlipidemia, hypertension, and stroke. He presents to the office today for follow-up. Of note, patient was seen approximately 2 months ago as a new patient for question of BPH at which time a bladder ultrasound and PSA were ordered for further assessment evaluation. These results reviewed with the patient today. The bladder is well distended unremarkable. Bilateral ureteral jets are demonstrated. Pre void bladder volume is approximately 185 mL. Postvoid bladder volume is approximately 60 mL. Small slight trabeculation of the bladder is seen on postvoid imaging. The prostate measures approximately 30 mL. PSA 05/03--0.8. In discussion with the patient today he does report urinary frequency however relates this to when he takes his diuretics. When asked he does report nocturia 1-2 times per night and at times a weak urinary stream. He otherwise denies incontinence, hematuria, dysuria, foul smelling urine, flank pain, fever, and or chills. He is happy with his current voiding parameters. In office urinalysis results reviewed with the patient today. Discussed at length potential causes of urinary frequency, nocturia, and weak urinary stream. Discuss trial of Flomax, alfuzosin, and or terazosin however patient declines at this time as he does not feel his urinary symptoms are bothersome. PVR 0 mL. Patient currently denies any bothersome urinary issues or concerns. In review of patient's chart it appears recent renal ultrasound noting right kidney is normal in size, contour, and echogenicity. 2 x 1.3 x 1.4 cm echogenic lesion in the upper pole questionable for an angiomyolipoma. 2 cm simple cyst in the lower pole. No imaging follow-up of renal cysts recommended. No calculi. No hydronephrosis. Left kidney is normal in size, contour, and echogenicity. No calculi or lesions noted. No hydronephrosis. He otherwise offers no other issues or concerns at this time. [facility] Medical History Atherosclerotic cardiovascular disease Fatigue High triglycerides Erectile dysfunction Typical atrial flutter Nonischemic cardiomyopathy Hearing loss COPD (chronic obstructive pulmonary disease) Chronic a-fib Atrial fibrillation Elevated blood sugar Asthma Hyperlipidemia HTN (hypertension) Stroke Surgical History Presence of single chamber implantable cardioverter-defibrillator (ICD) History of appendectomy History of tonsillectomy Family History Father Unknown family medical history Mother Unknown family medical history Social History Household Members: None Housing: Apartment Are you a primary day care teacher to a significant other at home: No Do you presently have visiting nurse or other home services: No Alcohol intake: current Alcohol intake frequency: holidays/special occasions only Patient Tobacco Use Status: Current everyday Tobacco user Cigarettes Per Day: 4 Years Smoked: 70 +/- e-Cigarette/Vaping Use: Never Used Second Hand Smoke Exposure: No Advance Directives Date on File: 08/18/20 service: No Current occupational status: retired Cognitive needs: No Hearing needs: No Vision needs: No Review of Systems Const Reports as per HPI Eyes Reports no additional complaints ENT Reports as per HPI Card Reports as per HPI Resp Reports as per HPI GI Reports as per HPI Reports as per HPI Musc Reports no additional complaints Neuro Reports as per HPI Psych Reports no additional complaints Endo Reports as per HPI Tommy/Lymph Reports no additional complaints Aller/Immun Reports no additional complaints Physical Exam Const General: cooperative, comfortable, no acute distress, well developed, alert and awake Orientation/consciousness: patient oriented x3 HEENT Other: bilaterally hearing aides Head: Yes normal to inspection, Yes normocephalic and Yes atraumatic Ears: hearing grossly normal bilaterally Eyes General: appearance normal, both eyes and all related structures Neck Neck: Yes normal visual inspection and Yes trachea midline Chest Chest palpation & inspection: normal inspection of the chest Resp Effort & Inspection: normal respiratory effort and able to speak in complete sentences Cardio Rate: regular rate GI Inspection: Yes normal to inspection General: Yes no CVA tenderness Back/Spine/Pelvis Back: no CVA tenderness Skin General skin exam: no rashes or lesions noted Neuro General: patient oriented x3 Extrem General: Yes normal to inspection Psych Appearance: grossly normal and well kempt Mental Status: mental status grossly normal Speech and movement: Normal speech and movement present and Clear speech present Affect: normal affect Attitude: cooperative Thought process: Normal thought process present Thought content: Normal thought content present Insight: Fair insight present (Psych) Judgement: Fair judgement present (Psych) Results AMB Urinalysis, Automated UA Leukoctes 0 Emma/uL Last Edit by [employer] on 06/18/23 13:31 UA Nitrite Negative Last Edit by [employer] on 06/18/23 13:31 UA Urobilinogen 0.2 mg/dL Last Edit by [employer] on 06/18/23 13:31 UA Protein 0 mg/dL Last Edit by [employer] on 06/18/23 13:31 UA pH 5.5 Last Edit by [employer] on 06/18/23 13:31 UA Blood 0 Mart/uL Last Edit by [employer] on 06/18/23 13:31 UA Specific Mobile 1.015 Last Edit by [employer] on 06/18/23 13:31 UA Ketone Negative Last Edit by [employer] on 06/18/23 13:31 UA Bilirubin 0 mg/dL Last Edit by [employer] on 06/18/23 13:31 UA Glucose 0 mg/dL Last Edit by [employer] on 06/18/23 13:31 Results Reviewed Results Reviewed: Date of Service: 06/15/23 EXAMINATION: US PELVIS LIMITED (BLADDER) CLINICAL INFORMATION: Benign prostatic hyperplasia without lower urinary tract symptoms. COMPARISON: Renal ultrasound 03/08/2023. TECHNIQUE: Real-time imaging of the bladder. FINDINGS: BLADDER: Well distended and unremarkable. Bilateral ureteral jets are demonstrated. Prevoid bladder volume is 187 mL. Postvoid bladder volume is 59 mL. Some slight trabeculation of the bladder is seen on the postvoid imaging. ADDITIONAL FINDINGS: The prostate measures 3.9 x 5.0 x 3.0 cm for a mildly enlarged volume of 30 mL. IMPRESSION: Mildly enlarged 30 mL prostate with a 59 mL post void residual. Assessment & Plan Assessment & Plan (1) Enlarged prostate: Code(s): N40.0 - Benign prostatic hyperplasia without lower urinary tract symptoms (2) Weak urinary stream: Code(s): R39.12 - Poor urinary stream (3) Urinary frequency: Code(s): R35.0 - Frequency of micturition (4) Lower urinary tract symptoms: Code(s): R39.9 - Unspecified symptoms and signs involving the genitourinary system Plan In office urinalysis results reviewed with the patient today; as noted above. PVR 0 mL. Recent bladder ultrasound results reviewed with the patient today; as noted above. Recent PSA results reviewed with the patient today; as noted above. Patient does not find lower urinary tract symptoms bothersome at this time. Will continue with surveillance monitoring. Discussed at length potential causes for lower urinary tract symptoms; discuss trial of Flomax/alfuzosin/and or terazosin; however patient declines at this time Patient reports be happy with current voiding parameters. Will obtain retroperitoneal ultrasound in 6 months. Follow-up in 6 months with imaging to be completed prior; or sooner with any issues, concerns, and or questions. Orders: Orders AMB Urinalysis Automated Today Z13.9 - Encounter for screening, unspecified US retroperitoneal comp 6 Months N40.0 - Benign prostatic hyperplasia without lower urinary tract symptoms, R39.12 - Poor urinary stream Patient Instructions: The patient had an opportunity to ask questions regarding the treatment plan. All questions were answered. Physical exam, labs, and imaging were discussed and reviewed in detail. As well as risks, benefits, and discussion of treatment choices. No major barriers to understanding were identified. The patient expressed understanding and agreement with the above treatment plan. The patient was made aware they should contact our office by phone for worsening of their current condition, the appearance of new symptoms, or with any questions or concerns. Compliance is encouraged with any medications and follow up testing that is ordered. It is a privilege to be allowed the opportunity to participate in? your urological care.? Again, if you have any questions or concerns If you have any questions or concerns please do not hesitate to contact me. The office is [phone]. This note is constructed using voice recognition software. While every effort has been made to ensure accuracy template inspector errors may have been included. Yours sincerely, MEHRAN RedamnP-BC Coding Level of Care Code Est Pt Level 3 (64208) Diagnoses Enlarged prostate N40.0 Weak urinary stream R39.12 Urinary frequency R35.0 Lower urinary tract symptoms R39.9
== END 2023-06-18 13:32 | disposition home or self-care (01) ==
PROVIDERS: PCP Nurse Practitioner Family; Visit Provider Nurse Practitioner Family
DX: N40.0 Benign prostatic hyperplasia without lower urinary tract symptoms (principal); R39.12 Poor urinary stream; R35.0 Frequency of micturition; R39.9 Unspecified symptoms and signs involving the genitourinary system; Z13.9 Encounter for screening, unspecified
CPT/HCPCS: 99213

== ENCOUNTER → 2023-06-18 12:23 | Outpatient (BNVA) | payer OTHER, MEDICAID, SELFPAY | PROVIDERS: PCP Nurse Practitioner Family; Visit Provider Nurse Practitioner Family | DX: N40.0 Benign prostatic hyperplasia without lower urinary tract symptoms (principal); R39.12 Poor urinary stream; R35.0 Frequency of micturition; R39.9 Unspecified symptoms and signs involving the genitourinary system | CPT/HCPCS: 81003; 99212 ==

== ENCOUNTER 2023-06-19 12:29 | Outpatient (REF) | payer OTHER, MEDICAID, SELFPAY ==
[2023-06-19 17:43] LABS: INTERNATIONAL NORM RATIO 2.6 (0.9-1.1); Prothrombin Time 31.9 SEC (11.1-13.3)
== END 2023-06-19 12:30 | disposition home or self-care (01) ==
LOC: HO.HMGCLR 12:29
PROVIDERS: PCP Nurse Practitioner Family; Visit Provider Nurse Practitioner Family
DX: I48.91 Unspecified atrial fibrillation (principal); H91.90 Unspecified hearing loss, unspecified ear; Z79.01 Long term (current) use of anticoagulants
CPT/HCPCS: 36415; 85610

== ENCOUNTER → 2023-06-25 23:59 | Outpatient (BNV) | payer OTHER, MEDICAID, SELFPAY ==
--- NOTE | 2023-07-07 20:36 | MHC.OFFVIS ---
Intake Intake Visit Reasons: Remote HF Monitoring- [employer] Allergies No Known Allergies [No Known Allergies*] Allergy (Verified 07/05/23 14:18) PFSH Medical History Atherosclerotic cardiovascular disease Fatigue High triglycerides Erectile dysfunction Typical atrial flutter Nonischemic cardiomyopathy Hearing loss COPD (chronic obstructive pulmonary disease) Chronic a-fib Atrial fibrillation Elevated blood sugar Asthma Hyperlipidemia HTN (hypertension) Stroke Surgical History Presence of single chamber implantable cardioverter-defibrillator (ICD) History of appendectomy History of tonsillectomy Family History Father Unknown family medical history Mother Unknown family medical history Social History Household Members: None Housing: Apartment Are you a primary medicare insurance specialist to a significant other at home: No Do you presently have visiting nurse or other home services: No Alcohol intake: current Alcohol intake frequency: holidays/special occasions only Patient Tobacco Use Status: Current everyday Tobacco user Cigarettes Per Day: 4 Years Smoked: 70 +/- e-Cigarette/Vaping Use: Never Used Second Hand Smoke Exposure: No Advance Directives Date on File: 08/18/20 service: No Current occupational status: retired Cognitive needs: No Hearing needs: No Vision needs: No Office Procedures Cardiac Device Check Cardiac Device Check Details: HF monitoring Evidence of fluid overload in may and improvement in June. [id number] Cardiac Device Interrogation, cardio physiologic monitor Procedure code (CPT) selection complete Assessment & Plan Assessment & Plan (1) Chronic heart failure: Code(s): I50.9 - Heart failure, unspecified Plan Coding Level of Care Code Procedure Only Diagnoses Chronic heart failure I50.9 CPT Codes Cardiac Device Check - Cardiac Device 15: [id number] Cardiac Device Interrogation, cardio physiologic monitor ([id number])
== END ==
PROVIDERS: PCP Nurse Practitioner Family; Visit Provider Internal Medicine Cardiovascular Disease
DX: I50.9 Heart failure, unspecified (principal); Z95.810 Presence of automatic (implantable) cardiac defibrillator
CPT/HCPCS: 93297

== ENCOUNTER 2023-06-26 09:30 | Outpatient (REF) | payer OTHER, MEDICAID, SELFPAY | END 2023-06-26 09:31 | disposition home or self-care (01) | LOC: HO.HOSX 09:30 | PROVIDERS: Visit Provider Physician Assistant | DX: Z13.89 Encounter for screening for other disorder (principal) ==

== ENCOUNTER 2023-06-27 12:33 | Outpatient (REF) | payer OTHER, MEDICAID, SELFPAY ==
[2023-06-27 16:37] LABS: MANUAL DIFF FLAG NO
[2023-06-27 16:43] LABS: Basophils Percent Auto 0.4 % (0-2); Eosinophils Absolute Auto 0.1 X10*3/uL (0.0-0.4); Eosinophils Percent Auto 1.1 % (0-4); Hematocrit 45.6 % (42.0-52.0); Hemoglobin 14.8 g/dl (14.0-18.0); Imm Gran Abs Auto 0.01 X10*3/uL (0.00-0.03); Imm Gran Pct Auto 0.2 % (0.0-0.4); Lymphocytes Absolute Auto 0.6 X10*3/uL (1.2-4.9); Lymphocytes Percent Auto 10.6 % (20-40); Mean Corpuscular HGB Conc 32.5 g/dl (31.0-36.0); Mean Corpuscular Hemoglobin 32.4 pg (27.0-33.0); Mean Corpuscular Volume 99.8 fL (80.0-98.0); Monocytes Absolute Auto 0.4 X10*3/uL (0.1-1.2); Monocytes Percent Auto 6.2 % (2-11); Neutrophils Absolute Auto 4.6 x10*3/uL (2.0-8.3); Neutrophils Percent Auto 81.5 % (45-73); Platelet Count 133 X10*3/uL (160-400); Red Blood Count 4.57 X10*6/uL (4.60-5.80); Red Cell Distribution Width 14.2 % (11.0-16.0); White Blood Count 5.7 X10*3/uL (4.8-10.8)
[2023-06-27 16:48] LABS: INTERNATIONAL NORM RATIO 3.1 (0.9-1.1); Prothrombin Time 37.3 SEC (11.1-13.3)
[2023-06-27 16:57] LABS: Anion Gap 17 (12-20); Blood Urea Nitrogen 39 mg/dL (9-16); Carbon Dioxide 29 mmol/L (22-29); Chloride 101 mmol/L (96-108); Estimated Glomerular Filt Rate 29; Phosphorus 3.2 mg/dL (2.7-4.5); Potassium 4.5 mmol/L (3.3-5.1); Sodium 142 mmol/L (135-145)
[2023-06-27 17:19] LABS: Parathyroid Hormone Intact 179.4 pg/mL (8.7-77.1)
[2023-06-27 17:21] LABS: Vitamin D 25-OH Total 20.3 ng/mL (>30)
[2023-07-04 11:48] LABS: IgA 224 mg/dL (70-320); IgG 1183 mg/dL (600-1540); IgM 102 mg/dL (50-300)
== END 2023-06-27 12:34 | disposition home or self-care (01) ==
LOC: HO.HMGCLDS 12:33
PROVIDERS: Internal Medicine Nephrology; PCP Nurse Practitioner Family; Visit Provider Nurse Practitioner Family
DX: I48.91 Unspecified atrial fibrillation (principal); H91.90 Unspecified hearing loss, unspecified ear; N18.4 Chronic kidney disease, stage 4 (severe); Z79.01 Long term (current) use of anticoagulants
CPT/HCPCS: 36415; 80051; 82306; 82310; 82565; 82784; 83970; 84100; 84520; 85025; 85610; 86334

== ENCOUNTER 2023-07-02 12:39 | Outpatient (REF) | payer OTHER, MEDICAID, SELFPAY ==
[2023-07-02 16:39] LABS: INTERNATIONAL NORM RATIO 2.5 (0.9-1.1); Prothrombin Time 30.3 SEC (11.1-13.3)
== END 2023-07-02 12:40 | disposition home or self-care (01) ==
LOC: HO.HMGCLR 12:39
PROVIDERS: PCP Nurse Practitioner Family; Visit Provider Nurse Practitioner Family
DX: I48.91 Unspecified atrial fibrillation (principal); H91.90 Unspecified hearing loss, unspecified ear; Z79.01 Long term (current) use of anticoagulants
CPT/HCPCS: 36415; 85610

== ENCOUNTER 2023-07-05 13:40 | Outpatient (AMB) | payer OTHER, MEDICAID, SELFPAY ==
--- NOTE | 2023-07-05 14:08 | MHC.OFFVIS ---
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 Patient reports his pain is a 8 on the 1-10 pain scale. He reports his pain has been going on for about 13 years primarily when he is walking, denies any injury or the use of NSAIDS. He has done stretching exercises which gave him minimal relief. He denies any pain radiating down either of his legs Allergies No Known Allergies [No Known Allergies*] Allergy (Verified 07/05/23 14:18) Medication List - Last Reconciled 07/06/23 by David Donovan MD albuterol sulfate 90 mcg/actuation (ProAir HFA) 2 puffs inhalation Q6H PRN 30 days amiodarone 200 mg PO DAILY atorvastatin 40 mg PO DAILY 90 days blood sugar diagnostic ([employer] Ultra Test strips) Use to check fasting blood sugar and a random sugar daily blood-glucose meter ([employer] Ultra2 Meter) Use to check fasting blood sugar and a random sugar daily fluticasone furoate-vilanterol 100-25 mcg/dose (Breo Ellipta) 1 ea inhalation DAILY furosemide 20 mg PO DIRECTED lancets ([employer] Delica Safety Lancet) Use to check fasting blood sugar and a random sugar daily lisinopril 5 mg PO DAILY metoprolol succinate ER (Toprol XL) 100 mg PO DAILY sildenafil 100 mg PO DAILY PRN 10 days trazodone 100 mg PO BEDTIME warfarin 2 mg See Protocol PO DAILY PFSH Medical History Atherosclerotic cardiovascular disease Fatigue High triglycerides Erectile dysfunction Typical atrial flutter Nonischemic cardiomyopathy Hearing loss COPD (chronic obstructive pulmonary disease) Chronic a-fib Atrial fibrillation Elevated blood sugar Asthma Hyperlipidemia HTN (hypertension) Stroke Surgical History Presence of single chamber implantable cardioverter-defibrillator (ICD) History of appendectomy History of tonsillectomy Family History Father Unknown family medical history Mother Unknown family medical history Social History Household Members: None Housing: Apartment Are you a primary home child care provider to a significant other at home: No Do you presently have visiting nurse or other home services: No Alcohol intake: current Alcohol intake frequency: holidays/special occasions only Patient Tobacco Use Status: Current everyday Tobacco user Cigarettes Per Day: 4 Years Smoked: 70 +/- e-Cigarette/Vaping Use: Never Used Second Hand Smoke Exposure: No Advance Directives Date on File: 08/18/20 service: No Current occupational status: retired Cognitive needs: No Hearing needs: No Vision needs: No Physical Exam Vital Signs: BMI result Body Mass Index 33.2 Const Other: Well-nourished well-developed very friendly male awake alert and oriented x3 in no acute distress Extrem Other: Bilateral lower extremity examination shows good capillary refill, no skin lesions noted, normal sensation light touch Bilateral hip examination shows minimal discomfort with range of motion, tenderness over his bursae, no overlying skin lesions Office Procedures Joint Injection/Drain Joint Injection/Drain Primary Site: other (Left hip greater trochanteric bursa) Prep: site was prepped using aseptic technique Injected: 40 mg of, DepoMedrol and 1% plain lidocaine Procedure: The patient tolerated the procedure well Coding 79781 - Large joint Procedure code (CPT) selection complete Joint Injection/Drain Joint Injection/Drain Primary Site: other (Right hip greater trochanteric bursa) Prep: site was prepped using aseptic technique Injected: 40 mg of, DepoMedrol and 1% plain lidocaine Procedure: The patient tolerated the procedure well Coding 59305 - Large joint Procedure code (CPT) selection complete Results Reviewed Results Reviewed: X-rays of the patient's bilateral hip show mild diffuse joint space narrowing, no acute bony abnormalities Assessment & Plan Assessment & Plan (1) Trochanteric bursitis, left hip: Code(s): M70.62 - Trochanteric bursitis, left hip (2) Trochanteric bursitis, right hip: Code(s): M70.61 - Trochanteric bursitis, right hip Plan Mr. Farah presents with bilateral hip pains due to greater trochanteric bursitis. A lengthy discussion with the patient regarding the treatment options. The risks and benefits of bilateral hip greater trochanteric bursa cortisone injections were discussed at length with the patient. The patient wished to proceed. He tolerated the injections well. Will continue with his home stretching program. He will follow up with me on an as-needed basis should his symptoms not plateau at an unacceptable level over the next few months. Feel free to call me at any time should questions regarding his orthopedic management arise. I spent 22 minutes in reviewing the patient's records and imaging studies, seeing the patient and documenting in the medical record. Orders: Orders XR pelvis 1-2V 07/05/23 M25.559 - Pain in unspecified hip AMB Joint Injection/Aspiration 07/05/23 M70.62 - Trochanteric bursitis, left hip AMB Joint Injection/Aspiration 07/05/23 M70.61 - Trochanteric bursitis, right hip Coding Level of Care Code New Pt Level 2 (22950) Diagnoses Trochanteric bursitis, left hip M70.62 Trochanteric bursitis, right hip M70.61 CPT Codes Coding - 83824 Large joint: 04432 - Large joint ([id number]) Coding - 19880 Large joint: 20102 - Large joint ([id number])
[2023-07-05 14:09] VITALS: BMI 33.2
== END 2023-07-05 14:53 | disposition home or self-care (01) ==
PROVIDERS: PCP Nurse Practitioner Family; Visit Provider Orthopaedic Surgery
DX: M70.62 Trochanteric bursitis, left hip (principal); M70.61 Trochanteric bursitis, right hip
CPT/HCPCS: 20610; 99202; 99212

== ENCOUNTER 2023-07-05 13:40 | Outpatient (REF) | payer OTHER, SELFPAY ==
--- NOTE | ~2023-07-05 | XR_ITS ---
EXAMINATION: XR PELVIS CLINICAL INFORMATION: Hip pain COMPARISON: None available. TECHNIQUE: AP view of the pelvis. FINDINGS: No fracture. Hip joint spaces are maintained. Alignment is anatomic. Sacroiliac joints and pubic symphysis are normal. Vascular calcifications. Vasectomy clips. XR/XR pelvis 1-2V IMPRESSION: No acute bony pathology.
== END 2023-07-05 13:41 | disposition home or self-care (01) ==
LOC: HO.HOSX 13:40
PROVIDERS: PCP Nurse Practitioner Family; Visit Provider Orthopaedic Surgery
DX: M70.62 Trochanteric bursitis, left hip (principal); M70.61 Trochanteric bursitis, right hip; Z79.01 Long term (current) use of anticoagulants; Z79.899 Other long term (current) drug therapy
CPT/HCPCS: 20610; 72170; 99202; J1020

== ENCOUNTER 2023-07-10 12:33 | Outpatient (REF) | payer OTHER, MEDICAID, SELFPAY ==
[2023-07-10 16:37] LABS: Prothrombin Time 65.9 SEC (11.1-13.3)
[2023-07-10 18:25] LABS: INTERNATIONAL NORM RATIO 5.4 (0.9-1.1)
== END 2023-07-10 12:34 | disposition home or self-care (01) ==
LOC: HO.HMGCLR 12:33
PROVIDERS: PCP Nurse Practitioner Family; Visit Provider Nurse Practitioner Family
DX: I48.91 Unspecified atrial fibrillation (principal); H91.90 Unspecified hearing loss, unspecified ear; Z79.01 Long term (current) use of anticoagulants
CPT/HCPCS: 36415; 85610

== ENCOUNTER 2023-07-13 12:59 | Outpatient (REF) | payer OTHER, MEDICAID, SELFPAY ==
[2023-07-13 16:31] LABS: INTERNATIONAL NORM RATIO 3.7 (0.9-1.1); Prothrombin Time 45.3 SEC (11.1-13.3)
== END 2023-07-13 13:00 | disposition home or self-care (01) ==
LOC: HO.HMGCLR 12:59
PROVIDERS: PCP Nurse Practitioner Family; Visit Provider Nurse Practitioner Family
DX: I48.91 Unspecified atrial fibrillation (principal); H91.90 Unspecified hearing loss, unspecified ear; Z79.01 Long term (current) use of anticoagulants
CPT/HCPCS: 36415; 85610

== ENCOUNTER 2023-07-18 10:00 | Outpatient (REF) | payer OTHER, MEDICAID, SELFPAY ==
[2023-07-18 13:34] LABS: INTERNATIONAL NORM RATIO 2.3 (0.9-1.1); Prothrombin Time 28.4 SEC (11.1-13.3)
== END 2023-07-18 10:01 | disposition home or self-care (01) ==
LOC: HO.HMGCLDS 10:00
PROVIDERS: PCP Nurse Practitioner Family; Visit Provider Nurse Practitioner Family
DX: I48.91 Unspecified atrial fibrillation (principal); I48.20 Chronic atrial fibrillation, unspecified; I48.3 Typical atrial flutter; Z79.01 Long term (current) use of anticoagulants
CPT/HCPCS: 36415; 85610

== ENCOUNTER → 2023-07-24 23:59 | Outpatient (BNV) | payer OTHER, MEDICAID, SELFPAY ==
--- NOTE | 2023-07-24 14:19 | MHC.OFFVIS ---
Intake Intake Visit Reasons: Remote HF Monitoring- [employer] Allergies No Known Allergies [No Known Allergies*] Allergy (Verified 07/05/23 14:18) PFSH Medical History Atherosclerotic cardiovascular disease Fatigue High triglycerides Erectile dysfunction Typical atrial flutter Nonischemic cardiomyopathy Hearing loss COPD (chronic obstructive pulmonary disease) Chronic a-fib Atrial fibrillation Elevated blood sugar Asthma Hyperlipidemia HTN (hypertension) Stroke Surgical History Presence of single chamber implantable cardioverter-defibrillator (ICD) History of appendectomy History of tonsillectomy Family History Father Unknown family medical history Mother Unknown family medical history Social History Household Members: None Housing: Apartment Are you a primary neonatal intensive care unit nurse to a significant other at home: No Do you presently have visiting nurse or other home services: No Alcohol intake: current Alcohol intake frequency: holidays/special occasions only Patient Tobacco Use Status: Current everyday Tobacco user Cigarettes Per Day: 4 Years Smoked: 70 +/- e-Cigarette/Vaping Use: Never Used Second Hand Smoke Exposure: No Advance Directives Date on File: 08/18/20 service: No Current occupational status: retired Cognitive needs: No Hearing needs: No Vision needs: No Office Procedures Cardiac Device Check Cardiac Device Check Details: HF monitoring Stable thoracic impedance Persistent Afib. [id number] Cardiac Device Interrogation, cardio physiologic monitor Procedure code (CPT) selection complete Assessment & Plan Assessment & Plan (1) Nonischemic cardiomyopathy: Code(s): I42.8 - Other cardiomyopathies Plan Orders: Orders AMB Cardiac Device Follow-up Today I48.0 - Paroxysmal atrial fibrillation Coding Level of Care Code Procedure Only Diagnoses Nonischemic cardiomyopathy I42.8 CPT Codes Cardiac Device Check - Cardiac Device 15: [id number] Cardiac Device Interrogation, cardio physiologic monitor ([id number])
== END ==
PROVIDERS: PCP Nurse Practitioner Family; Visit Provider Internal Medicine Cardiovascular Disease
DX: I42.8 Other cardiomyopathies (principal); Z95.810 Presence of automatic (implantable) cardiac defibrillator
CPT/HCPCS: 93297

== ENCOUNTER → 2023-07-24 23:59 | Outpatient (BNV) | payer OTHER, MEDICAID, SELFPAY ==
--- NOTE | 2023-07-24 14:16 | A.OFFVIS_ITS ---
Intake Intake Visit Reasons: Remote ICD Check- [employer] Allergies No Known Allergies [No Known Allergies*] Allergy (Verified 07/05/23 14:18) PFS Medical History Atherosclerotic cardiovascular disease Fatigue High triglycerides Erectile dysfunction Typical atrial flutter Nonischemic cardiomyopathy Hearing loss COPD (chronic obstructive pulmonary disease) Chronic a-fib Atrial fibrillation Elevated blood sugar Asthma Hyperlipidemia HTN (hypertension) Stroke Surgical History Presence of single chamber implantable cardioverter-defibrillator (ICD) History of appendectomy History of tonsillectomy Family History Father Unknown family medical history Mother Unknown family medical history Social History Household Members: None Housing: Apartment Are you a primary assurance services manager health care to a significant other at home: No Do you presently have visiting nurse or other home services: No Alcohol intake: current Alcohol intake frequency: holidays/special occasions only Patient Tobacco Use Status: Current everyday Tobacco user Cigarettes Per Day: 4 Years Smoked: 70 +/- e-Cigarette/Vaping Use: Never Used Second Hand Smoke Exposure: No Advance Directives Date on File: 08/18/20 service: No Current occupational status: retired Cognitive needs: No Hearing needs: No Vision needs: No Office Procedures Cardiac Device Check Cardiac Device Check Details: ICD Good battery life. Persistent Afib. No other alerts. [id number] Cardiac Device Interrogation, pacemaker or defibrillator Procedure code (CPT) selection complete Assessment & Plan Assessment & Plan (1) Nonischemic cardiomyopathy: Code(s): I42.8 - Other cardiomyopathies Plan Orders: Orders AMB Cardiac Device Follow-up Today I48.0 - Paroxysmal atrial fibrillation Coding Level of Care Code Procedure Only Diagnoses Nonischemic cardiomyopathy I42.8 CPT Codes Cardiac Device Check - Cardiac Device 14: [id number] Cardiac Device Interrogation, pacemaker or defibrillator ([id number])
== END ==
PROVIDERS: PCP Nurse Practitioner Family; Visit Provider Internal Medicine Cardiovascular Disease
DX: I42.8 Other cardiomyopathies (principal); Z95.810 Presence of automatic (implantable) cardiac defibrillator
CPT/HCPCS: 93295

== ENCOUNTER 2023-07-25 13:44 | Outpatient (REF) | payer OTHER, MEDICAID, SELFPAY ==
[2023-07-25 16:09] LABS: INTERNATIONAL NORM RATIO 3.9 (0.9-1.1); Prothrombin Time 47.9 SEC (11.1-13.3)
== END 2023-07-25 13:45 | disposition home or self-care (01) ==
LOC: HO.HMGCLR 13:44
PROVIDERS: PCP Nurse Practitioner Family; Visit Provider Nurse Practitioner Family
DX: I48.91 Unspecified atrial fibrillation (principal); I48.92 Unspecified atrial flutter; H91.90 Unspecified hearing loss, unspecified ear; Z79.01 Long term (current) use of anticoagulants
CPT/HCPCS: 36415; 85610

== ENCOUNTER 2023-07-31 08:19 | Outpatient (REF) | payer OTHER, MEDICAID, SELFPAY ==
[2023-07-31 12:09] LABS: INTERNATIONAL NORM RATIO 2.4 (0.9-1.1); Prothrombin Time 29.8 SEC (11.1-13.3)
== END 2023-07-31 08:20 | disposition home or self-care (01) ==
LOC: HO.HMGCLR 08:19
PROVIDERS: PCP Nurse Practitioner Family; Visit Provider Nurse Practitioner Family
DX: I48.91 Unspecified atrial fibrillation (principal); H91.90 Unspecified hearing loss, unspecified ear; Z79.01 Long term (current) use of anticoagulants
CPT/HCPCS: 36415; 85610

== ENCOUNTER 2023-08-07 09:06 | Outpatient (REF) | payer OTHER, MEDICAID, SELFPAY ==
[2023-08-07 10:47] LABS: Prothrombin Time 64.5 SEC (11.1-13.3)
[2023-08-07 10:59] LABS: INTERNATIONAL NORM RATIO 5.3 (0.9-1.1)
== END 2023-08-07 09:07 | disposition home or self-care (01) ==
LOC: HO.HMGCLR 09:06
PROVIDERS: PCP Nurse Practitioner Family; Visit Provider Nurse Practitioner Family
DX: I48.91 Unspecified atrial fibrillation (principal); H91.90 Unspecified hearing loss, unspecified ear; Z79.01 Long term (current) use of anticoagulants
CPT/HCPCS: 36415; 85610

== ENCOUNTER 2023-08-09 09:15 | Outpatient (REF) | payer OTHER, MEDICAID, SELFPAY ==
[2023-08-09 10:50] LABS: INTERNATIONAL NORM RATIO 4.8 (0.9-1.1); Prothrombin Time 58.5 SEC (11.1-13.3)
== END 2023-08-09 09:16 | disposition home or self-care (01) ==
LOC: HO.HMGCLR 09:15
PROVIDERS: PCP Nurse Practitioner Family; Visit Provider Nurse Practitioner Family
DX: I48.91 Unspecified atrial fibrillation (principal); H91.90 Unspecified hearing loss, unspecified ear; Z79.01 Long term (current) use of anticoagulants
CPT/HCPCS: 36415; 85610

== ENCOUNTER 2023-08-13 09:12 | Outpatient (REF) | payer OTHER, MEDICAID, SELFPAY ==
[2023-08-13 13:34] LABS: INTERNATIONAL NORM RATIO 2.2 (0.9-1.1); Prothrombin Time 26.8 SEC (11.1-13.3)
== END 2023-08-13 09:13 | disposition home or self-care (01) ==
LOC: HO.HMGCLDS 09:12
PROVIDERS: PCP Nurse Practitioner Family; Visit Provider Nurse Practitioner Family
DX: I48.91 Unspecified atrial fibrillation (principal); H91.90 Unspecified hearing loss, unspecified ear; Z79.01 Long term (current) use of anticoagulants
CPT/HCPCS: 36415; 85610

== ENCOUNTER 2023-08-16 09:32 | Outpatient (REF) | payer OTHER, MEDICAID, SELFPAY ==
[2023-08-16 11:45] LABS: Prothrombin Time 24.8 SEC (11.1-13.3)
== END 2023-08-16 09:33 | disposition home or self-care (01) ==
LOC: HO.HMGCLR 09:32
PROVIDERS: PCP Nurse Practitioner Family; Visit Provider Nurse Practitioner Family
DX: I48.91 Unspecified atrial fibrillation (principal); H91.90 Unspecified hearing loss, unspecified ear; Z79.01 Long term (current) use of anticoagulants; I48.19 Other persistent atrial fibrillation
CPT/HCPCS: 36415; 85610

== ENCOUNTER 2023-08-20 08:46 | Outpatient (REF) | payer OTHER, MEDICAID, SELFPAY ==
[2023-08-20 11:43] LABS: INTERNATIONAL NORM RATIO 1.9 (0.9-1.1); Prothrombin Time 23.7 SEC (11.1-13.3)
== END 2023-08-20 08:47 | disposition home or self-care (01) ==
LOC: HO.HMGCLR 08:46
PROVIDERS: PCP Nurse Practitioner Family; Visit Provider Nurse Practitioner Family
DX: I48.91 Unspecified atrial fibrillation (principal); H91.90 Unspecified hearing loss, unspecified ear; Z79.01 Long term (current) use of anticoagulants
CPT/HCPCS: 36415; 85610

== ENCOUNTER 2023-08-23 08:49 | Outpatient (REF) | payer OTHER, MEDICAID, SELFPAY ==
[2023-08-23 11:45] LABS: INTERNATIONAL NORM RATIO 3.3 (0.9-1.1); Prothrombin Time 40.1 SEC (11.1-13.3)
== END 2023-08-23 08:50 | disposition home or self-care (01) ==
LOC: HO.HMGCLR 08:49
PROVIDERS: PCP Nurse Practitioner Family; Visit Provider Nurse Practitioner Family
DX: I48.91 Unspecified atrial fibrillation (principal); H91.90 Unspecified hearing loss, unspecified ear; Z79.01 Long term (current) use of anticoagulants
CPT/HCPCS: 36415; 85610

== ENCOUNTER → 2023-08-25 23:59 | Outpatient (BNV) | payer OTHER, MEDICAID, SELFPAY ==
--- NOTE | 2023-09-16 20:45 | A.OFFVIS_ITS ---
Intake Intake Visit Reasons: Remote HF Monitoring- [employer] Allergies No Known Allergies [No Known Allergies*] Allergy (Verified 07/05/23 14:18) PFSH Medical History Atherosclerotic cardiovascular disease Fatigue High triglycerides Erectile dysfunction Typical atrial flutter Nonischemic cardiomyopathy Hearing loss COPD (chronic obstructive pulmonary disease) Chronic a-fib Atrial fibrillation Elevated blood sugar Asthma Hyperlipidemia HTN (hypertension) Stroke Surgical History Presence of single chamber implantable cardioverter-defibrillator (ICD) History of appendectomy History of tonsillectomy Family History Father Unknown family medical history Mother Unknown family medical history Social History Household Members: None Housing: Apartment Are you a primary aged or disabled carer to a significant other at home: No Do you presently have visiting nurse or other home services: No Alcohol intake: current Alcohol intake frequency: holidays/special occasions only Patient Tobacco Use Status: Current everyday Tobacco user Cigarettes Per Day: 4 Years Smoked: 70 +/- e-Cigarette/Vaping Use: Never Used Second Hand Smoke Exposure: No Advance Directives Date on File: 08/18/20 service: No Current occupational status: retired Cognitive needs: No Hearing needs: No Vision needs: No Office Procedures Cardiac Device Check Cardiac Device Check Details: HF monitoring Stable thoracic impedance Background Afib. [id number] Cardiac Device Interrogation, cardio physiologic monitor Procedure code (CPT) selection complete Assessment & Plan Assessment & Plan (1) Nonischemic cardiomyopathy: Code(s): I42.8 - Other cardiomyopathies Plan: Coding Level of Care Code Procedure Only Diagnoses Nonischemic cardiomyopathy I42.8 CPT Codes Cardiac Device Check - Cardiac Device 15: [id number] Cardiac Device Interrogation, cardio physiologic monitor ([id number])
== END ==
PROVIDERS: PCP Nurse Practitioner Family; Visit Provider Internal Medicine Cardiovascular Disease
DX: I42.8 Other cardiomyopathies (principal); I48.91 Unspecified atrial fibrillation; Z95.810 Presence of automatic (implantable) cardiac defibrillator
CPT/HCPCS: 93297

== ENCOUNTER 2023-08-28 08:48 | Outpatient (REF) | payer OTHER, MEDICAID, SELFPAY ==
[2023-08-28 11:38] LABS: INTERNATIONAL NORM RATIO 2.1 (0.9-1.1)
== END 2023-08-28 08:49 | disposition home or self-care (01) ==
LOC: HO.HMGCLR 08:48
PROVIDERS: PCP Nurse Practitioner Family; Visit Provider Nurse Practitioner Family
DX: I48.91 Unspecified atrial fibrillation (principal); H91.90 Unspecified hearing loss, unspecified ear; Z79.01 Long term (current) use of anticoagulants
CPT/HCPCS: 36415; 85610

== ENCOUNTER 2023-09-03 08:49 | Outpatient (REF) | payer OTHER, MEDICAID, SELFPAY ==
[2023-09-03 11:29] LABS: INTERNATIONAL NORM RATIO 3.1 (0.9-1.1); Prothrombin Time 37.3 SEC (11.1-13.3)
== END 2023-09-03 08:50 | disposition home or self-care (01) ==
LOC: HO.HMGCLR 08:49
PROVIDERS: PCP Nurse Practitioner Family; Visit Provider Nurse Practitioner Family
DX: Z79.01 Long term (current) use of anticoagulants (principal)
CPT/HCPCS: 36415; 85610

== ENCOUNTER 2023-09-06 08:35 | Outpatient (REF) | payer OTHER, MEDICAID, SELFPAY ==
[2023-09-06 10:23] LABS: INTERNATIONAL NORM RATIO 2.5 (0.9-1.1)
== END 2023-09-06 08:36 | disposition home or self-care (01) ==
LOC: HO.HMGCLR 08:35
PROVIDERS: PCP Nurse Practitioner Family; Visit Provider Nurse Practitioner Family
DX: Z79.01 Long term (current) use of anticoagulants (principal)
CPT/HCPCS: 36415; 85610

== ENCOUNTER 2023-09-12 12:48 | Outpatient (AMB) | payer OTHER, MEDICAID, SELFPAY ==
[2023-09-12 13:26] VITALS: BP 110/52; PULSE 45; BMI 30.4
--- NOTE | 2023-09-12 13:26 | MHC.OFFVIS ---
Intake Vital Signs 09/12/23 13:26 Height 5 ft 7 in Weight 194 lb 0.108 oz BMI 30.4 BP 110/52 L Blood Pressure Location Lt brachial Position Sitting Pulse 45 L Intake Visit Reasons: 4 month follow up Intake Note: pt kits here for a 4mth f/up/ pt states that he its doing fine. Research Laboratory Specialist Required: No Accompanied by: Self / Same As Patient Allergies No Known Allergies [No Known Allergies*] Allergy (Verified 07/05/23 14:18) Medication List - Last Reconciled 09/12/23 by Bubba Mccullough MD albuterol sulfate 90 mcg/actuation (ProAir HFA) 2 puffs inhalation Q6H PRN 30 days amiodarone 200 mg PO DAILY atorvastatin 40 mg PO DAILY 90 days blood sugar diagnostic ([employer] Ultra Test strips) Use to check fasting blood sugar and a random sugar daily blood-glucose meter ([employer] Ultra2 Meter) Use to check fasting blood sugar and a random sugar daily fluticasone furoate-vilanterol 100-25 mcg/dose (Breo Ellipta) 1 ea inhalation DAILY furosemide 20 mg PO DIRECTED lancets (STEARCLEAR Delica Safety Lancet) Use to check fasting blood sugar and a random sugar daily lisinopril 5 mg PO DAILY metoprolol succinate ER (Toprol XL) 100 mg PO DAILY sildenafil 100 mg PO DAILY PRN 10 days trazodone 100 mg PO BEDTIME warfarin 2 mg See Protocol PO DAILY HPI HPI Comments History of Present Illness Details 83-year-old gentleman with nonischemic cardiomyopathy and background of atrial flutter. He has been experiencing significant episodes of atrial fibrillation based on device interrogations. He had at least 3 shocks by his device recently. On 1st occasion he was drinking alcohol and had a device shock which was thought to be due to atrial fibrillation. He also had recent episode where he had 3 device shocks and device interrogation currently showing tachycardia at approximately 200 beats per minute. The appearance looks like atrial flutter. We had previously tried a rhythm control strategy with him and he was given amiodarone but it appears he gained some weight after that and stop taking the amiodarone. When he was diagnosed with cardiomyopathy he was advised to be admitted the hospital to have a sotalol load but he has never agreed to be admitted to the hospital. He is denying chest discomfort currently. He is not complaining of any shortness of breath. He is saying before device shock he had nausea and sweating. He is saying that these symptoms are quite consistent before he had device shocks previously. He was started on amiodarone after discussion and since then has not had any shocks from his device. He has stop drinking alcohol. He has also stopped smoking in the last 4 months. He is taking medications regularly. He has EKG showing atrial fibrillation with occasional paced beats. He does not have any significant shortness of breath. No chest discomfort. 12/27/22: He is here for follow-up. He has been complaining of shortness of breath over the last week or so. He is saying he cannot lay flat in bed and gets orthopnea. Also walking around he is getting out of breath easily. Denying any peripheral edema or abdominal distension. He has been taking Lasix 40 mg once a day. Previously was advised to take 60 mg of Lasix. He is taking medications otherwise regularly. Recent echocardiography has shown EF of 30 35% which is mild improvement from severe dysfunction in the past. 02/07/23: On last visit we advised him to increase the Lasix to 40 mg twice a day. He was clinically overloaded at that time. Appears he took the Lasix for few days and then started having dizziness which she described like a vertigo like feeling. This is a chronic thing for him and has happened previously 2. After that episode he went back to Lasix once a day. He continues to have some shortness of breath and orthopnea. Still volume overloaded. 04/16/23: He returns for follow-up. He is saying he has some chest discomfort which was fullness/pressure over his chest lasting for many hours on . He said he went to bed and woke up without any significant issues. He was getting some breathing issues laying flat in bed. He has been drinking whiskey. He is saying he has not smoked cigarettes since . He was previously advised to take Lasix 40 mg twice a day but he has been taking it 2 to 3 times a week at b.i.d. dosing. Describing orthopnea at this point as well as weight gain. Excessive salt intake in diet and he ate ham on the day he had fullness in his chest. 09/12/23: He returns for follow-up. He is denying any chest discomfort. He is complaining of fatigue and dizziness. He is saying he has sleeping a lot. His heart rate is 45 with first-degree AV block. Blood pressure is 110/52. He is taking amiodarone 200 mg daily, lisinopril 5 mg daily, metoprolol succinate 100 mg daily and Coumadin. [facility] Medical History Atherosclerotic cardiovascular disease Fatigue High triglycerides Erectile dysfunction Typical atrial flutter Nonischemic cardiomyopathy Hearing loss COPD (chronic obstructive pulmonary disease) Chronic a-fib Atrial fibrillation Elevated blood sugar Asthma Hyperlipidemia HTN (hypertension) Stroke Surgical History Presence of single chamber implantable cardioverter-defibrillator (ICD) History of appendectomy History of tonsillectomy Family History Father Unknown family medical history Mother Unknown family medical history Social History Household Members: None Housing: Apartment Are you a primary child care coordinator to a significant other at home: No Do you presently have visiting nurse or other home services: No Alcohol intake: current Alcohol intake frequency: holidays/special occasions only Patient Tobacco Use Status: Current everyday Tobacco user Cigarettes Per Day: 4 Years Smoked: 70 +/- e-Cigarette/Vaping Use: Never Used Second Hand Smoke Exposure: No Advance Directives Date on File: 08/18/20 service: No Current occupational status: retired Cognitive needs: No Hearing needs: No Vision needs: No Review of Systems Const Denies chills, Denies fatigue, Denies fever(s), Denies frequent falls, Denies weakness, Denies weight gain and Denies weight loss ENT Denies dizziness Card Denies chest pain, Denies leg edema, Denies lightheadedness, Denies palpitations, Denies dyspnea and Denies dyspnea on exertion Resp Denies cough, Denies dyspnea and Denies dyspnea on exertion GI Denies hematochezia Musc Denies abnormal gait, Denies muscle weakness, Denies numbness, Denies radiating pain into limb and Denies tingling Neuro Denies abnormal gait, Denies dizziness, Denies frequent falls, Denies numbness, Denies tingling and Denies weakness Endo Denies fatigue and Denies palpitations Physical Exam Vital Signs: Last Vital Signs Pulse 45 L 09/12/23 13:26 BP 110/52 L 09/12/23 13:26 BMI result Body Mass Index 30.4 GENERAL APPEARANCE: in no acute distress, pleasant. SKIN: no suspicious lesions, warm and dry. HEART: no murmurs, regular rate and rhythm. Bradycardic. LUNGS: Clear to auscultation bilaterally. ABDOMEN: soft, nontender. Distended. EXTREMITIES: no edema. PERIPHERAL PULSES: equal. NEUROLOGIC: No gross deficits, AAO X 3 Office Procedures EKG Details: Sinus bradycardia 45 beats per minute, first-degree AV block with CO interval of 260 milliseconds, rightward axis, anterior infarct, lateral infarct, QTC 468 milliseconds. [id number], Complete Assessment & Plan Assessment & Plan (1) Nonischemic cardiomyopathy: Code(s): I42.8 - Other cardiomyopathies (2) HTN (hypertension): Code(s): I10 - Essential (primary) hypertension Qualifiers: Hypertension type: primary hypertension Qualified Code(s): I10 - Essential (primary) hypertension (3) Sinus bradycardia: Code(s): R00.1 - Bradycardia, unspecified Plan [age] gentleman who is here for follow-up. He has background history of cardiomyopathy in the setting of atrial flutter. Did not agree to admission to hospital for cardioversion and sotalol load. Subsequently he had syncope with NSTEMI and underwent cardiac catheterization which proved no significant coronary disease. Due to low ejection fraction he had ICD placed. He was having significant episode of atrial fibrillation and was started on amiodarone which he has tolerated well and interestingly is in sinus rhythm today. He has stopped drinking since his last visit. He has sinus bradycardia and heart rate is 45 beats per minute with first-degree AV block. He also has low blood pressure and has been complaining of some dizziness and fatigue. I have advised him to decrease the metoprolol succinate to 50 mg daily. I will see him back in 4 months. Thank you for allowing me to participate in the care of your patient. Please feel free to contact me if you have any questions. Medications: New metoprolol succinate ER 50 mg PO DAILY 90 tabs 3RF Discontinued metoprolol succinate ER (Toprol XL) Discontinued Reason: Doctor's Order 100 mg PO DAILY 90 tabs 1RF Coding Level of Care Code Est Pt Level 4 (88212) Diagnoses Nonischemic cardiomyopathy I42.8 Primary hypertension I10 Hypertension type: primary hypertension Sinus bradycardia R00.1 CPT Codes EKG - CPT: 02793-[id number], Complete ([id number])
== END 2023-09-12 14:03 | disposition home or self-care (01) ==
PROVIDERS: PCP Nurse Practitioner Family; Visit Provider Internal Medicine Cardiovascular Disease
DX: I42.8 Other cardiomyopathies (principal); I10 Essential (primary) hypertension; R00.1 Bradycardia, unspecified
CPT/HCPCS: 93010; 99214

== ENCOUNTER → 2023-09-12 12:48 | Outpatient (BNVA) | payer OTHER, SELFPAY | PROVIDERS: PCP Nurse Practitioner Family; Visit Provider Internal Medicine Cardiovascular Disease | DX: I42.8 Other cardiomyopathies (principal); I10 Essential (primary) hypertension; R00.1 Bradycardia, unspecified; R94.31 Abnormal electrocardiogram [ECG] [EKG]; I44.0 Atrioventricular block, first degree | CPT/HCPCS: 93005; 99212 ==

== ENCOUNTER 2023-09-13 08:27 | Outpatient (REF) | payer OTHER, MEDICAID, SELFPAY ==
[2023-09-13 10:34] LABS: INTERNATIONAL NORM RATIO 1.5 (0.9-1.1); Prothrombin Time 18.6 SEC (11.1-13.3)
== END 2023-09-13 08:28 | disposition home or self-care (01) ==
LOC: HO.HMGCLR 08:27
PROVIDERS: PCP Nurse Practitioner Family; Visit Provider Nurse Practitioner Family
DX: Z79.01 Long term (current) use of anticoagulants (principal)
CPT/HCPCS: 36415; 85610

== ENCOUNTER 2023-09-17 07:47 | Outpatient (REF) | payer OTHER, MEDICAID, SELFPAY ==
[2023-09-17 10:26] LABS: INTERNATIONAL NORM RATIO 1.7 (0.9-1.1); Prothrombin Time 20.7 SEC (11.1-13.3)
== END 2023-09-17 07:48 | disposition home or self-care (01) ==
LOC: HO.HMGCLR 07:47
PROVIDERS: PCP Nurse Practitioner Family; Visit Provider Nurse Practitioner Family
DX: Z79.01 Long term (current) use of anticoagulants (principal)
CPT/HCPCS: 36415; 85610

== ENCOUNTER 2023-09-21 07:34 | Outpatient (REF) | payer OTHER, MEDICAID, SELFPAY ==
[2023-09-21 10:54] LABS: INTERNATIONAL NORM RATIO 2.2 (0.9-1.1); Prothrombin Time 27.3 SEC (11.1-13.3)
== END 2023-09-21 07:35 | disposition home or self-care (01) ==
LOC: HO.HMGCLDS 07:34
PROVIDERS: PCP Nurse Practitioner Family; Visit Provider Nurse Practitioner Family
DX: R07.89 Other chest pain (principal); Z79.01 Long term (current) use of anticoagulants
CPT/HCPCS: 36415; 85610

== ENCOUNTER 2023-09-24 08:02 | Outpatient (REF) | payer OTHER, MEDICAID, SELFPAY ==
[2023-09-24 12:02] LABS: INTERNATIONAL NORM RATIO 3.3 (0.9-1.1); Prothrombin Time 39.7 SEC (11.1-13.3)
== END 2023-09-24 08:03 | disposition home or self-care (01) ==
LOC: HO.HMGCLR 08:02
PROVIDERS: PCP Nurse Practitioner Family; Visit Provider Nurse Practitioner Family
DX: Z79.01 Long term (current) use of anticoagulants (principal)
CPT/HCPCS: 36415; 85610

== ENCOUNTER → 2023-09-26 23:59 | Outpatient (BNV) | payer OTHER, MEDICAID, SELFPAY ==
--- NOTE | 2023-10-15 10:41 | A.OFFVIS_ITS ---
Intake Visit Reasons: Remote HF monitoring- [employer] Allergies No Known Allergies [No Known Allergies*] Allergy (Verified 10/04/23 12:51) PFSH Medical History Atherosclerotic cardiovascular disease Fatigue High triglycerides Erectile dysfunction Typical atrial flutter Nonischemic cardiomyopathy Hearing loss COPD (chronic obstructive pulmonary disease) Chronic a-fib Atrial fibrillation Elevated blood sugar Asthma Hyperlipidemia HTN (hypertension) Stroke Surgical History Presence of single chamber implantable cardioverter-defibrillator (ICD) History of appendectomy History of tonsillectomy Family History Father Unknown family medical history Mother Unknown family medical history Social History Household Members: None Housing: Apartment Are you a primary child adolescent care to a significant other at home: No Do you presently have visiting nurse or other home services: No Alcohol intake: current Alcohol intake frequency: holidays/special occasions only Patient Tobacco Use Status: Current someday Tobacco user Cigarettes Per Day: 4 Years Smoked: 70 +/- e-Cigarette/Vaping Use: Never Used Second Hand Smoke Exposure: No Advance Directives Date on File: 08/18/20 service: No Current occupational status: retired Cognitive needs: No Hearing needs: No Vision needs: No Office Procedures Cardiac Device Check Cardiac Device Check Details: Heart failure monitoring. OptiVol is showing evidence of ongoing volume overload. Has not been in atrial fibrillation since July 2023. Had significant AFib burden before that. [id number] Cardiac Device Interrogation, cardio physiologic monitor Procedure code (CPT) selection complete Assessment & Plan Assessment & Plan (1) Nonischemic cardiomyopathy: Code(s): I42.8 - Other cardiomyopathies Category: Medical Plan Coding Level of Care Code Procedure Only Diagnoses Nonischemic cardiomyopathy I42.8 CPT Codes Cardiac Device Check - Cardiac Device 15: [id number] Cardiac Device Interrogation, cardio physiologic monitor ([id number])
== END ==
PROVIDERS: PCP Nurse Practitioner Family; Visit Provider Internal Medicine Cardiovascular Disease
DX: I42.8 Other cardiomyopathies (principal); Z95.810 Presence of automatic (implantable) cardiac defibrillator
CPT/HCPCS: 93297

== ENCOUNTER 2023-09-27 09:38 | Outpatient (REF) | payer OTHER, MEDICAID, SELFPAY ==
[2023-09-27 10:42] LABS: INTERNATIONAL NORM RATIO 2.5 (0.9-1.1); Prothrombin Time 30.4 SEC (11.1-13.3)
== END 2023-09-27 09:39 | disposition home or self-care (01) ==
LOC: HO.HMGCLR 09:38
PROVIDERS: PCP Nurse Practitioner Family; Visit Provider Nurse Practitioner Family
DX: Z79.01 Long term (current) use of anticoagulants (principal)
CPT/HCPCS: 36415; 85610

== ENCOUNTER 2023-10-01 08:23 | Outpatient (REF) | payer OTHER, MEDICAID, SELFPAY ==
[2023-10-01 10:20] LABS: MANUAL DIFF FLAG NO
[2023-10-01 10:31] LABS: Basophils Percent Auto 0.3 % (0-2); Eosinophils Absolute Auto 0.1 X10*3/uL (0.0-0.4); Hematocrit 38.9 % (42.0-52.0); Hemoglobin 12.6 g/dl (14.0-18.0); Imm Gran Abs Auto 0.03 X10*3/uL (0.00-0.03); Imm Gran Pct Auto 0.4 % (0.0-0.4); Lymphocytes Absolute Auto 0.8 X10*3/uL (1.2-4.9); Mean Corpuscular HGB Conc 32.4 g/dl (31.0-36.0); Mean Corpuscular Hemoglobin 31.5 pg (27.0-33.0); Mean Corpuscular Volume 97.3 fL (80.0-98.0); Mean Platelet Volume 12.9 fL (9.4-12.4); Monocytes Absolute Auto 0.8 X10*3/uL (0.1-1.2); Monocytes Percent Auto 10.9 % (2-11); Neutrophils Absolute Auto 5.3 x10*3/uL (2.0-8.3); Neutrophils Percent Auto 75.4 % (45-73); Platelet Count 141 X10*3/uL (160-400); Red Cell Distribution Width 14.6 % (11.0-16.0)
[2023-10-01 10:38] LABS: Appearance Urine Clear; Color Urine Yellow; Glucose Urine UA Negative (Negative); Leukocyte Esterase Urine Trace (Negative); Nitrite Urine Negative (Negative); UMIC TRIGGER UACC YES; Urine Blood Negative (Negative); Urine Ketones Trace mg/dL (Negative); Urine Protein Negative (Neg-Trace)
[2023-10-01 10:42] LABS: Bacteria Urine None Seen (None Seen); RBC Urine 0-2 /HPF (0-2); Squamous Epithelial Cell Urine 0-2 /HPF (0-2); WBC Urine 0-5 /HPF (0-5)
[2023-10-01 10:56] LABS: Alanine Aminotransferase 28 U/L (0-40); Albumin Level 4.1 g/dL (3.5-5.0); Alkaline Phosphatase 68 U/L (39-117); Anion Gap 12 (12-20); Aspartate Amino Transferase 21 U/L (5-37); Bilirubin Total 0.7 mg/dL (0.0-1.0); Blood Urea Nitrogen 48 mg/dL (9-16); Calcium 9.4 mg/dL (8.4-10.2); Carbon Dioxide 26 mmol/L (22-29); Chloride 107 mmol/L (96-108); Cholesterol 117 mg/dL (<200); Estimated Glomerular Filt Rate 29; Glucose Fasting 117 mg/dL (60-99); HDL Cholesterol 39 mg/dL (>40); LDL Cholesterol Calculated 56 mg/dL (<100); Potassium 4.3 mmol/L (3.3-5.1); Sodium 141 mmol/L (135-145); Total Protein 7.1 g/dL (6.5-8.0); Triglycerides 110 mg/dL (<150)
[2023-10-01 10:58] LABS: Creatinine Urine 171.98 mg/dL; Protein/Creatinine Ratio, Ur 0.05 (<0.2); Total Protein Urine Random 8 mg/dL (<12)
[2023-10-01 11:22] LABS: TSH reflex Free T4 1.31 uIU/mL (0.32-4.0)
== END 2023-10-01 08:24 | disposition home or self-care (01) ==
LOC: HO.HMGCLR 08:23
PROVIDERS: Internal Medicine Nephrology; PCP Nurse Practitioner Family; Visit Provider Nurse Practitioner Family
DX: E11.9 Type 2 diabetes mellitus without complications (principal); N18.4 Chronic kidney disease, stage 4 (severe)
CPT/HCPCS: 36415; 80053; 80061; 81001; 82570; 84156; 84443; 85025

== ENCOUNTER 2023-10-03 13:45 | Outpatient (AMB) | payer OTHER, MEDICAID, SELFPAY ==
--- NOTE | 2023-10-03 13:53 | A.OFFPC_ITS ---
Vital Signs 10/03/23 13:57 Height 5 ft 7 in Weight 194 lb BMI 30.4 BP 108/70 Blood Pressure Location Rt brachial Position Sitting Pulse 49 L Pulse Source Pulse Oximeter Pulse Oximetry (%) 98 Oxygen Delivery Method Room Air Intake Visit Reasons: Annual PE Intake Note: Patient here for physical exam. pt would like to talk about the kidney dr he was sent to and also have a look at bruise on left side. Allergies No Known Allergies [No Known Allergies*] Allergy (Verified 10/03/23 13:58) Tobacco use date assessed: 10/03/23 Fall risk assessment: 1 Fall in past year Last assessed Fall Risk: 10/03/23 Dental Screening Dental Screen Date: 10/03/23 Did you have a dental visit in the last 12 months?: No Did you have a dental problem in the last 6 months where you did not have access to dental care?: No Was dental information given to patient?: No HPI Annual PE HPI Details Pt is here for a PE. Labs were already performed. PSA is up to date. Pt is a diabetic, on an HANNA and a statin. A1C in office today is 6.7. Microalbumin is up to date. Denies polyuria, polydipsia, and neuropathy. Pt denies any signs and symptoms of hypoglycemia and does know how to correct it. Pt follows up with cardiology, ortho, nephrology, and urology. [facility] Medical History Atherosclerotic cardiovascular disease Fatigue High triglycerides Erectile dysfunction Typical atrial flutter Nonischemic cardiomyopathy Hearing loss COPD (chronic obstructive pulmonary disease) Chronic a-fib Atrial fibrillation Elevated blood sugar Asthma Hyperlipidemia HTN (hypertension) Stroke Surgical History Presence of single chamber implantable cardioverter-defibrillator (ICD) History of appendectomy History of tonsillectomy Family History Father Unknown family medical history Mother Unknown family medical history Social History Household Members: None Housing: Apartment Are you a primary childcare attendant to a significant other at home: No Do you presently have visiting nurse or other home services: No Alcohol intake: current Alcohol intake frequency: holidays/special occasions only Patient Tobacco Use Status: Current someday Tobacco user Cigarettes Per Day: 4 Years Smoked: 70 +/- e-Cigarette/Vaping Use: Never Used Second Hand Smoke Exposure: No Advance Directives Date on File: 08/18/20 service: No Current occupational status: retired Cognitive needs: No Hearing needs: No Vision needs: No Questionnaire PHQ-9 Over the last 2 weeks, how often have you been bothered by any of the following problems? 93882 - PHQ-9 Billing: Patient declined-do not bill Source: Developed by Drs. James Kamara, Irina Flaherty, Gucci Zapata and colleagues, with an educational brayan from [employer]. Thrive Questionnaire Date Thrive assessed: 10/03/23 What is your living situation today?: I choose not to answer this question Within the past 12 months, did the food you bought not last and you didn't have the money to get more?: I choose not to answer this question Within the past 12 months, did you worry whether your food would run out before you got money to buy more?: I choose not to answer this question Do you have trouble paying for medicines?: I choose not to answer this question Do you have trouble getting transportation to medical appointments?: I choose not to answer this question Do you have trouble paying your heating and electricity bill?: I choose not to answer this question Do you have trouble taking care of your child, family member or friend?: I choose not to answer this question Do you have trouble with day-to-day activities such as bathing, preparing meals, shopping, managing finances, etc.?: I choose not to answer this question Are you currently unemployed and looking for a job?: I choose not to answer this question Are you interested in more education?: I choose not to answer this question Currently or been in a relationship where the following occur: I choose not to answer this question THRIVE Score: 0 AUDIT C Alcohol Use Questionnaire (AUDIT-C) 1. How often do you have a drink containing alcohol?: Monthly or less 2. How many drinks containing alcohol do you have on a typical day when you are drinking?: 1 or 2 3. How often do you have six or more drinks on one occasion?: Never Total Score: 1 Score Reviewed/Action Taken: No RYANNE-7 AMB Questionnaire RYANNE-7 Date RYANNE - 7 assessed: 10/03/23 Source: Developed by Drs. James Kamara, Irina Flaherty, Gucci Zapata and colleagues, with an educational brayan from [employer]. RYANNE-7 Assessment Billing RYANNE-7 Assessment Tool: pt declined-do not bill Review of Systems Const Denies chills and Denies fever(s) Eyes Denies blurry vision ENT Denies vertigo, Denies dizziness and Denies sore throat Card Denies chest pain at rest, Denies chest pain with activity, Denies diaphoresis, Denies dyspnea and Denies dyspnea on exertion Resp Denies cough, Denies dyspnea, Denies dyspnea on exertion and Denies wheezing GI Denies abdominal pain, Denies melena, Denies hematochezia, Denies constipation, Denies diarrhea and Denies loose stools Denies hematuria Musc Denies numbness and Denies tingling Skin/Breast Denies lesions Neuro Denies vertigo, Denies dizziness, Denies numbness and Denies tingling Psych Denies anxiety, Denies depression, Denies homicidal ideation, Denies suicidal ideation and Denies other (substance abuse) Aller/Immun Denies wheezing Physical exam (Primary Care) Vital Signs: Last Vital Signs Pulse 49 L 10/03/23 13:57 BP 108/70 10/03/23 13:57 Pulse Ox 98 10/03/23 13:57 Oxygen Delivery Method Room Air 10/03/23 13:57 BMI result Body Mass Index 30.4 Tobacco/Smoking Status: Tobacco use Status Tobacco use date assessed 10/03/23 10/03/23 14:01 Patient Tobacco Use Status Current someday Tobacco 10/03/23 14:01 e-Cigarette/Vaping Use Never Used 10/03/23 13:53 Thrive Assessment: Date of Thrive Assessment Date Thrive assessed 06/15/22 10/03/23 13:53 Currently or been in a relationship where the following occur: I choose not to answer this question Const General: cooperative Nutritional Appearance: obese Orientation/consciousness: patient oriented x3 HENMT Head: Yes normal to inspection, Yes normocephalic and Yes atraumatic Ears: TM's normal bilaterally Eyes General: appearance normal, both eyes and all related structures Alignment and Position: alignment normal and position normal Neck Neck: Yes normal visual inspection and Yes no lymphadenopathy Thyroid: Thyroid normal Resp Effort & Inspection: normal respiratory effort Auscultation: clear to auscultation bilaterally Cardio Rate: bradycardic Rhythm: regular rhythm Heart sounds: S1 normal heart sound present, S2 normal heart sound present and no murmurs GI Palpation (GI): Soft to palpation and nontender Auscultation: normal bowel sounds Skin Rashes: no rashes Neuro General: patient oriented x3, moves all extremities, no focal motor deficits and deep tendon reflexes 2+ bilaterally Romberg Test: Negative Extrem Other: bilat feet: + sensation with use of monofilament, feet intact Psych Appearance: grossly normal Mental Status: mental status grossly normal Speech and movement: Normal speech and movement present Affect: normal affect Attitude: cooperative Thought process: Normal thought process present Thought content: Normal thought content present Insight: Good insight present (Psych) Judgement: Good judgement present (Psych) Assessment and Plan Assessment & Plan (1) Diabetes: Code(s): E11.9 - Type 2 diabetes mellitus without complications (2) Physical exam: Code(s): Z00.00 - Encounter for general adult medical examination without abnormal findings Plan The patient agreed to the use of a medical practitioners for this encounter. Scribed for JESSY Urban by Candace Saez medical practitioners, on 10/03/2023 at 14:05 EST. Coding Level of Care Code Est Pt Prev Care >65y(38610) Diagnoses Diabetes E11.9 Physical exam Z00.00
[2023-10-03 13:57] VITALS: BP 108/70; PULSE 49; O2SAT 98; BMI 30.4
== END 2023-10-03 14:18 | disposition home or self-care (01) ==
PROVIDERS: PCP Nurse Practitioner Family; Visit Provider Nurse Practitioner Family
DX: Z00.00 Encounter for general adult medical examination without abnormal findings (principal); E11.9 Type 2 diabetes mellitus without complications
CPT/HCPCS: 83036; 99397

== ENCOUNTER 2023-10-04 08:07 | Outpatient (REF) | payer OTHER, SELFPAY ==
[2023-10-04 10:41] LABS: INTERNATIONAL NORM RATIO 2.8 (0.9-1.1); Prothrombin Time 33.5 SEC (11.1-13.3)
== END 2023-10-04 08:08 | disposition home or self-care (01) ==
LOC: HO.HMGCLDS 08:07
PROVIDERS: PCP Nurse Practitioner Family; Visit Provider Nurse Practitioner Family
DX: M25.551 Pain in right hip (principal); M25.552 Pain in left hip; M70.62 Trochanteric bursitis, left hip; M70.61 Trochanteric bursitis, right hip; Z79.01 Long term (current) use of anticoagulants; Z79.899 Other long term (current) drug therapy
CPT/HCPCS: 20610; 36415; 85610; 99212; J1010

== ENCOUNTER 2023-10-04 12:47 | Outpatient (AMB) | payer OTHER, MEDICAID, SELFPAY ==
[2023-10-04 12:47] VITALS: BMI 30.4
--- NOTE | 2023-10-04 12:47 | A.OFFVIS_ITS ---
Vital Signs 10/04/23 12:47 Height 5 ft 7 in Weight 194 lb BMI 30.4 Intake Visit Reasons: ov- Bilateral hip pain last injection 07/05/23 Intake Note: Eder is a 83 year old male who presents for a follow up for his bilateral hip pains. He states that he got fairly good relief from the cortisone injections that were given to him at his last visit. His pains have returned. He describes his pains as sharp in nature. Most of the pain is along the lateral aspects of his hips. He denies any groin pain. Has tried Tylenol and anti- inflammatory medicines which gave him minimal relief. Allergies No Known Allergies [No Known Allergies*] Allergy (Verified 10/04/23 12:51) Medication List - Last Reconciled 10/05/23 by David Donovan MD albuterol sulfate 90 mcg/actuation (ProAir HFA) 2 puffs inhalation Q6H PRN 30 days amiodarone 200 mg PO DAILY atorvastatin 40 mg PO DAILY 90 days blood sugar diagnostic ([employer] Ultra Test strips) Use to check fasting blood sugar and a random sugar daily blood-glucose meter ([employer] Ultra2 Meter) Use to check fasting blood sugar and a random sugar daily fluticasone furoate-vilanterol 100-25 mcg/dose (Breo Ellipta) 1 ea inhalation DAILY furosemide 20 mg PO DIRECTED lancets ([employer] Delica Safety Lancet) Use to check fasting blood sugar and a random sugar daily lisinopril 5 mg PO DAILY metoprolol succinate ER 50 mg PO DAILY sildenafil 100 mg PO DAILY PRN 10 days trazodone 100 mg PO BEDTIME warfarin 2 mg See Protocol PO DAILY PFSH Medical History Atherosclerotic cardiovascular disease Fatigue High triglycerides Erectile dysfunction Typical atrial flutter Nonischemic cardiomyopathy Hearing loss COPD (chronic obstructive pulmonary disease) Chronic a-fib Atrial fibrillation Elevated blood sugar Asthma Hyperlipidemia HTN (hypertension) Stroke Surgical History Presence of single chamber implantable cardioverter-defibrillator (ICD) History of appendectomy History of tonsillectomy Family History Father Unknown family medical history Mother Unknown family medical history Social History Household Members: None Housing: Apartment Are you a primary property caretaker to a significant other at home: No Do you presently have visiting nurse or other home services: No Alcohol intake: current Alcohol intake frequency: holidays/special occasions only Patient Tobacco Use Status: Current someday Tobacco user Cigarettes Per Day: 4 Years Smoked: 70 +/- e-Cigarette/Vaping Use: Never Used Second Hand Smoke Exposure: No Advance Directives Date on File: 08/18/20 service: No Current occupational status: retired Cognitive needs: No Hearing needs: No Vision needs: No Physical Exam Vital Signs: BMI result Body Mass Index 30.4 Const Other: Well-nourished well-developed very friendly male awake alert and oriented x3 in no acute distress Extrem Other: Bilateral lower extremity examination shows good capillary refill, no skin lesions noted, normal sensation light touch Bilateral hip examination shows mild discomfort with range of motion, tenderness along his greater trochanteric bursae, no overlying skin lesions Office Procedures Joint Injection/Drain Joint Injection/Drain Primary Site: other (Left hip greater trochanteric bursa) Prep: site was prepped using aseptic technique Injected: 40 mg of, DepoMedrol and 1% plain lidocaine Procedure: The patient tolerated the procedure well Coding 60373 - Large joint Procedure code (CPT) selection complete Joint Injection/Drain Joint Injection/Drain Primary Site: other (Right hip greater trochanteric bursa) Prep: site was prepped using aseptic technique Injected: 40 mg of, DepoMedrol and 1% plain lidocaine Procedure: The patient tolerated the procedure well Coding 21932 - Large joint Procedure code (CPT) selection complete Assessment & Plan Assessment & Plan (1) Trochanteric bursitis, left hip: Code(s): M70.62 - Trochanteric bursitis, left hip Category: Medical (2) Trochanteric bursitis, right hip: Code(s): M70.61 - Trochanteric bursitis, right hip Category: Medical Plan Mr. Farah presents with bilateral hip pains due to greater trochanteric bursitis. I had a lengthy discussion with the patient regarding the treatment options. The risks and benefits of bilateral hip bursa injections were discussed at length with the patient. The patient wished to proceed. He tolerated the cortisone injections well. Will continue with his home exercise program. He will follow up with me on an as-needed basis should his symptoms not plateau at an unacceptable level over the next few months. Feel free to call me at any time should questions regarding his orthopedic management arise. I spent 22 minutes in reviewing the patient's records and imaging studies, seeing the patient and documenting in the medical record. Orders: Orders AMB Joint Injection/Aspiration 10/04/23 M70.61 - Trochanteric bursitis, right hip AMB Joint Injection/Aspiration 10/04/23 M70.62 - Trochanteric bursitis, left hip Coding Level of Care Code Est Pt Level 2 (81860) Diagnoses Trochanteric bursitis, left hip M70.62 Trochanteric bursitis, right hip M70.61 CPT Codes Coding - 04203 Large joint: 96647 - Large joint ([id number]) Coding - 00211 Large joint: 35806 - Large joint ([id number])
== END 2023-10-04 13:13 | disposition home or self-care (01) ==
PROVIDERS: PCP Nurse Practitioner Family; Visit Provider Orthopaedic Surgery
DX: M70.62 Trochanteric bursitis, left hip (principal); M70.61 Trochanteric bursitis, right hip
CPT/HCPCS: 20610; 99213

== ENCOUNTER 2023-10-11 08:24 | Outpatient (REF) | payer OTHER, SELFPAY ==
[2023-10-11 10:44] LABS: INTERNATIONAL NORM RATIO 2.3 (0.9-1.1); Prothrombin Time 27.7 SEC (11.1-13.3)
[2023-10-11 11:21] LABS: Appearance Urine Clear; Color Urine Yellow; Glucose Urine UA Negative (Negative); Leukocyte Esterase Urine Trace (Negative); Nitrite Urine Negative (Negative); Specific Gravity - Urine 1.015 (1.005-1.025); UMIC TRIGGER UACC YES; Urine Blood Negative (Negative); Urine Ketones Negative (Negative); Urine Protein Negative (Neg-Trace)
[2023-10-11 11:56] LABS: Bacteria Urine None Seen (None Seen); RBC Urine 0-2 /HPF (0-2); Squamous Epithelial Cell Urine 0-2 /HPF (0-2); WBC Urine 0-5 /HPF (0-5)
[2023-10-11 12:00] LABS: Alanine Aminotransferase 26 U/L (0-40); Albumin Level 4.1 g/dL (3.5-5.0); Alkaline Phosphatase 65 U/L (39-117); Anion Gap 15 (12-20); Aspartate Amino Transferase 18 U/L (5-37); Bilirubin Total 0.6 mg/dL (0.0-1.0); Blood Urea Nitrogen 66 mg/dL (9-16); Carbon Dioxide 27 mmol/L (22-29); Chloride 103 mmol/L (96-108); Cholesterol 125 mg/dL (<200); Estimated Glomerular Filt Rate 23; Glucose Fasting 121 mg/dL (60-99); HDL Cholesterol 37 mg/dL (>40); LDL Cholesterol Calculated 64 mg/dL (<100); Potassium 4.4 mmol/L (3.3-5.1); Sodium 141 mmol/L (135-145); Total Protein 7.3 g/dL (6.5-8.0); Triglycerides 123 mg/dL (<150)
== END 2023-10-11 08:25 | disposition home or self-care (01) ==
LOC: HO.HMGCLR 08:24
PROVIDERS: PCP Nurse Practitioner Family; Visit Provider Nurse Practitioner Family
DX: E11.9 Type 2 diabetes mellitus without complications (principal); Z79.01 Long term (current) use of anticoagulants
CPT/HCPCS: 36415; 80053; 80061; 81001; 81003; 85610

== ENCOUNTER 2023-10-18 08:26 | Outpatient (REF) | payer OTHER, SELFPAY ==
[2023-10-18 10:49] LABS: INTERNATIONAL NORM RATIO 2.5 (0.9-1.1); Prothrombin Time 30.4 SEC (11.1-13.3)
== END 2023-10-18 08:27 | disposition home or self-care (01) ==
LOC: HO.HMGCLR 08:26
PROVIDERS: PCP Nurse Practitioner Family; Visit Provider Nurse Practitioner Family
DX: Z79.01 Long term (current) use of anticoagulants (principal)
CPT/HCPCS: 36415; 85610

== ENCOUNTER 2023-10-25 09:18 | Outpatient (REF) | payer OTHER, SELFPAY ==
[2023-10-25 10:23] LABS: INTERNATIONAL NORM RATIO 2.6 (0.9-1.1); Prothrombin Time 31.6 SEC (11.1-13.3)
== END 2023-10-25 09:19 | disposition home or self-care (01) ==
LOC: HO.HMGCLR 09:18
PROVIDERS: PCP Nurse Practitioner Family; Visit Provider Nurse Practitioner Family
DX: Z79.01 Long term (current) use of anticoagulants (principal)
CPT/HCPCS: 36415; 85610

== ENCOUNTER → 2023-10-28 23:59 | Outpatient (BNV) | payer OTHER, SELFPAY ==
--- NOTE | 2023-11-04 17:18 | A.OFFVIS_ITS ---
Intake Visit Reasons: Remote HF monitoring- [employer] Allergies No Known Allergies [No Known Allergies*] Allergy (Verified 10/04/23 12:51) PFSH Medical History Atherosclerotic cardiovascular disease Fatigue High triglycerides Erectile dysfunction Typical atrial flutter Nonischemic cardiomyopathy Hearing loss COPD (chronic obstructive pulmonary disease) Chronic a-fib Atrial fibrillation Elevated blood sugar Asthma Hyperlipidemia HTN (hypertension) Stroke Surgical History Presence of single chamber implantable cardioverter-defibrillator (ICD) History of appendectomy History of tonsillectomy Family History Father Unknown family medical history Mother Unknown family medical history Social History Household Members: None Housing: Apartment Are you a primary skin care specialist to a significant other at home: No Do you presently have visiting nurse or other home services: No Alcohol intake: current Alcohol intake frequency: holidays/special occasions only Patient Tobacco Use Status: Current someday Tobacco user Cigarettes Per Day: 4 Years Smoked: 70 +/- e-Cigarette/Vaping Use: Never Used Second Hand Smoke Exposure: No Advance Directives Date on File: 08/18/20 service: No Current occupational status: retired Cognitive needs: No Hearing needs: No Vision needs: No Office Procedures Cardiac Device Check Cardiac Device Check Details: HF Optivol readings have been up and down. Currently showing ongoing volume overload. [id number]-UZ Cardiac Device Check, single lead implantable defibrillator Procedure code (CPT) selection complete Assessment & Plan Assessment & Plan (1) ICD (implantable cardioverter-defibrillator) in place: Code(s): Z95.810 - Presence of automatic (implantable) cardiac defibrillator Category: Medical Plan: Orders: Orders AMB Cardiac Device Follow-up 10/28/23 Z95.810 - Presence of automatic (implantable) cardiac defibrillator Medications: Discontinued metoprolol succinate ER Discontinued Reason: None 50 mg PO DAILY 90 tabs 3RF Coding Level of Care Code Procedure Only Diagnoses ICD (implantable cardioverter-defibrillator) in place Z95.810 CPT Codes Cardiac Device Check - Cardiac Device 4: 32318-[place] Cardiac Device Check, single lead implantable defibrillator ([id number])
== END ==
PROVIDERS: PCP Nurse Practitioner Family; Visit Provider Internal Medicine Cardiovascular Disease
DX: Z45.02 Encounter for adjustment and management of automatic implantable cardiac defibrillator (principal)
CPT/HCPCS: 93297

== ENCOUNTER → 2023-10-28 23:59 | Outpatient (BNV) | payer OTHER, SELFPAY ==
--- NOTE | 2023-11-04 15:02 | A.OFFVIS_ITS ---
Intake Visit Reasons: Remote device check- [employer] Allergies No Known Allergies [No Known Allergies*] Allergy (Verified 10/04/23 12:51) PFSH Medical History Atherosclerotic cardiovascular disease Fatigue High triglycerides Erectile dysfunction Typical atrial flutter Nonischemic cardiomyopathy Hearing loss COPD (chronic obstructive pulmonary disease) Chronic a-fib Atrial fibrillation Elevated blood sugar Asthma Hyperlipidemia HTN (hypertension) Stroke Surgical History Presence of single chamber implantable cardioverter-defibrillator (ICD) History of appendectomy History of tonsillectomy Family History Father Unknown family medical history Mother Unknown family medical history Social History Household Members: None Housing: Apartment Are you a primary childcare administrator to a significant other at home: No Do you presently have visiting nurse or other home services: No Alcohol intake: current Alcohol intake frequency: holidays/special occasions only Patient Tobacco Use Status: Current someday Tobacco user Cigarettes Per Day: 4 Years Smoked: 70 +/- e-Cigarette/Vaping Use: Never Used Second Hand Smoke Exposure: No Advance Directives Date on File: 08/18/20 service: No Current occupational status: retired Cognitive needs: No Hearing needs: No Vision needs: No Office Procedures Cardiac Device Check Cardiac Device Check Details: ICD Good battery. No new alerts. [id number]-QH Cardiac Device Check, single lead implantable defibrillator Procedure code (CPT) selection complete Assessment & Plan Assessment & Plan (1) ICD (implantable cardioverter-defibrillator) in place: Code(s): Z95.810 - Presence of automatic (implantable) cardiac defibrillator Category: Medical Plan: Orders: Orders AMB Cardiac Device Follow-up 10/28/23 Z95.810 - Presence of automatic (implantable) cardiac defibrillator Medications: Discontinued metoprolol succinate ER Discontinued Reason: None 50 mg PO DAILY 90 tabs 3RF Coding Level of Care Code Procedure Only Diagnoses ICD (implantable cardioverter-defibrillator) in place Z95.810 CPT Codes Cardiac Device Check - Cardiac Device 4: 06970-SZ Cardiac Device Check, single lead implantable defibrillator ([id number])
== END ==
PROVIDERS: PCP Nurse Practitioner Family; Visit Provider Internal Medicine Cardiovascular Disease
DX: Z45.02 Encounter for adjustment and management of automatic implantable cardiac defibrillator (principal)
CPT/HCPCS: 93295

== ENCOUNTER 2023-11-01 07:51 | Outpatient (REF) | payer OTHER, SELFPAY ==
[2023-11-01 10:32] LABS: Prothrombin Time 24.4 SEC (11.1-13.3)
== END 2023-11-01 07:52 | disposition home or self-care (01) ==
LOC: HO.HMGCLR 07:51
PROVIDERS: PCP Nurse Practitioner Family; Visit Provider Nurse Practitioner Family
DX: Z79.01 Long term (current) use of anticoagulants (principal)
CPT/HCPCS: 36415; 85610

== ENCOUNTER 2023-11-09 07:22 | Outpatient (REF) | payer OTHER, SELFPAY ==
[2023-11-09 10:34] LABS: INTERNATIONAL NORM RATIO 2.9 (0.9-1.1); Prothrombin Time 35.3 SEC (11.1-13.3)
== END 2023-11-09 07:23 | disposition home or self-care (01) ==
LOC: HO.HMGCLDS 07:22
PROVIDERS: PCP Nurse Practitioner Family; Visit Provider Nurse Practitioner Family
DX: Z79.01 Long term (current) use of anticoagulants (principal)
CPT/HCPCS: 36415; 85610

== ENCOUNTER 2023-11-14 12:49 | Outpatient (AMB) | payer OTHER, SELFPAY ==
--- NOTE | 2023-11-14 13:05 | HO.NEPHOV_ITS ---
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 He is tolerating HANNA-inhibitor. He is on diuretics. He has been having intermittent dizziness. He does not have any chest pain, shortness of breath, proximal nocturnal dyspnea, orthopnea. His urine output is good. He avoids nonsteroidal anti-inflammatories. He is closely followed up with Cardiology. He has no symptoms of peripheral arterial disease. He claims to be compliant with his medications. His serum creatinine has gone recently. [facility] Medical History Atherosclerotic cardiovascular disease Fatigue High triglycerides Erectile dysfunction Typical atrial flutter Nonischemic cardiomyopathy Hearing loss COPD (chronic obstructive pulmonary disease) Chronic a-fib Atrial fibrillation Elevated blood sugar Asthma Hyperlipidemia HTN (hypertension) Stroke Surgical History Presence of single chamber implantable cardioverter-defibrillator (ICD) History of appendectomy History of tonsillectomy Family History Father Unknown family medical history Mother Unknown family medical history Social History Household Members: None Housing: Apartment Are you a primary critical care physician assistant to a significant other at home: No Do you presently have visiting nurse or other home services: No Alcohol intake: current Alcohol intake frequency: holidays/special occasions only Patient Tobacco Use Status: Current someday Tobacco user Cigarettes Per Day: 4 Years Smoked: 70 +/- e-Cigarette/Vaping Use: Never Used Second Hand Smoke Exposure: No Advance Directives Date on File: 08/18/20 service: No Current occupational status: retired Cognitive needs: No Hearing needs: No Vision needs: No Physical Exam Vital Signs: Last Vital Signs Pulse 48 L 11/14/23 13:06 BP 110/50 L 11/14/23 13:06 Pulse Ox 99 11/14/23 13:06 Oxygen Delivery Method Room Air 11/14/23 13:06 BMI result Body Mass Index 30.1 Const General: comfortable and no acute distress Orientation/consciousness: patient oriented x3 HEENT Head: Yes normocephalic Mouth: Normal oral and palatal mucosa present Eyes EOM: EOMs intact bilaterally Neck Neck: Yes supple Resp Auscultation: clear to auscultation bilaterally Cardio Jugular venous distension: no JVD Rate: regular rate Heart sounds: Murmur heart sound present GI Palpation (GI): Soft to palpation Auscultation: normal bowel sounds General: Yes no CVA tenderness Back/Spine/Pelvis Back: no CVA tenderness Skin General skin exam: no rashes or lesions noted Neuro General: patient oriented x3 and moves all extremities Extrem General: Yes no pedal edema Results Reviewed Nephrology Results: Hgb 12.6 g/dl (14.0-18.0) L 10/01/23 WBC 7.0 X10*3/uL (4.8-10.8) 10/01/23 Plt Count 141 X10*3/uL (160-400) L 10/01/23 Sodium 141 mmol/L (135-145) 10/11/23 Potassium 4.4 mmol/L (3.3-5.1) 10/11/23 Chloride 103 mmol/L (96-108) 10/11/23 Carbon Dioxide 27 mmol/L (22-29) 10/11/23 BUN 66 mg/dL (9-16) H 10/11/23 Creatinine 2.64 mg/dL (0.5-1.4) H 10/11/23 Calcium 10.0 mg/dL (8.4-10.2) 10/11/23 Urine Protein Negative mg/dL (Neg-Trace) 10/11/23 Urine Creatinine 171.98 mg/dL 10/01/23 Protein/Creatinin Ratio 0.05 (<0.2) 10/01/23 Assessment & Plan Assessment & Plan (1) CKD (chronic kidney disease) stage 4, GFR 15-29 ml/min: Code(s): N18.4 - Chronic kidney disease, stage 4 (severe) Category: Medical (2) HTN (hypertension): Code(s): I10 - Essential (primary) hypertension Category: Medical Qualifiers: Hypertension type: primary hypertension Qualified Code(s): I10 - Essential (primary) hypertension Plan Macho has history of nonischemic cardiomyopathy. He is on HANNA-inhibitor and diuretics. He is closely followed by his conservation assistant. He tries to use a minimal dietary sodium. His serum creatinine has been around 2. I reduced the dose of lisinopril to 2.5 mg daily. He can continue rest of his current medications for now. Follow up blood work ordered. All his questions were answered. Follow-up given Orders: Orders Blood Urea Nitrogen Today I10 - Essential (primary) hypertension, N18.4 - Chronic kidney disease, stage 4 (severe) Electrolytes Today I10 - Essential (primary) hypertension, N18.4 - Chronic kidney disease, stage 4 (severe) Creatinine Today I10 - Essential (primary) hypertension, N18.4 - Chronic kidney disease, stage 4 (severe) Coding Level of Care Code Est Pt Level 4 (45951) Diagnoses CKD (chronic kidney disease) stage 4, GFR 15-29 ml/min N18.4 Primary hypertension I10 Hypertension type: primary hypertension
[2023-11-14 13:06] VITALS: BP 110/50; PULSE 48; O2SAT 99; BMI 30.1
== END 2023-11-14 13:33 | disposition home or self-care (01) ==
LOC: HO.HKA 12:49
PROVIDERS: PCP Nurse Practitioner Family; Visit Provider Internal Medicine Nephrology
DX: I12.9 Hypertensive chronic kidney disease with stage 1 through stage 4 chronic kidney disease, or unspecified chronic kidney disease (principal); N18.4 Chronic kidney disease, stage 4 (severe)
CPT/HCPCS: 99214

== ENCOUNTER → 2023-11-14 12:49 | Outpatient (BNVA) | payer OTHER, SELFPAY | PROVIDERS: PCP Nurse Practitioner Family; Visit Provider Internal Medicine Nephrology | DX: I12.9 Hypertensive chronic kidney disease with stage 1 through stage 4 chronic kidney disease, or unspecified chronic kidney disease (principal); N18.4 Chronic kidney disease, stage 4 (severe) | CPT/HCPCS: 99212 ==

== ENCOUNTER 2023-11-15 07:34 | Outpatient (REF) | payer OTHER, SELFPAY ==
[2023-11-15 10:45] LABS: INTERNATIONAL NORM RATIO 2.3 (0.9-1.1); Prothrombin Time 27.8 SEC (11.1-13.3)
[2023-11-15 11:02] LABS: Anion Gap 13 (12-20); Blood Urea Nitrogen 48 mg/dL (9-16); Carbon Dioxide 23 mmol/L (22-29); Chloride 111 mmol/L (96-108); Estimated Glomerular Filt Rate 33; Potassium 4.4 mmol/L (3.3-5.1); Sodium 143 mmol/L (135-145)
== END 2023-11-15 07:35 | disposition home or self-care (01) ==
LOC: HO.HMGCLDS 07:34
PROVIDERS: Internal Medicine Nephrology; PCP Nurse Practitioner Family; Visit Provider Nurse Practitioner Family
DX: I10 Essential (primary) hypertension (principal); N18.4 Chronic kidney disease, stage 4 (severe); Z79.01 Long term (current) use of anticoagulants
CPT/HCPCS: 36415; 80051; 82565; 84520; 85610

== ENCOUNTER 2023-11-22 08:27 | Outpatient (REF) | payer OTHER, SELFPAY ==
[2023-11-22 10:45] LABS: INTERNATIONAL NORM RATIO 3.1 (0.9-1.1); Prothrombin Time 37.3 SEC (11.1-13.3)
== END 2023-11-22 08:28 | disposition home or self-care (01) ==
LOC: HO.HMGCLR 08:27
PROVIDERS: PCP Nurse Practitioner Family; Visit Provider Nurse Practitioner Family
DX: Z79.01 Long term (current) use of anticoagulants (principal)
CPT/HCPCS: 36415; 85610

== ENCOUNTER 2023-11-28 11:34 | Outpatient (AMB) | payer OTHER, SELFPAY ==
[2023-11-28 11:38] VITALS: PULSE 55; O2SAT 96; BMI 30.6
--- NOTE | 2023-11-28 11:38 | HO.NEPHOV ---
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 He is tolerating HANNA-inhibitor. He is on diuretics. He does not have any chest pain, shortness of breath, proximal nocturnal dyspnea, orthopnea. His urine output is good. He avoids nonsteroidal anti-inflammatories. He is closely followed up with Cardiology. He has no symptoms of peripheral arterial disease. He claims to be compliant with his medications. His serum creatinine has improved since last visit [facility] Medical History Atherosclerotic cardiovascular disease Fatigue High triglycerides Erectile dysfunction Typical atrial flutter Nonischemic cardiomyopathy Hearing loss COPD (chronic obstructive pulmonary disease) Chronic a-fib Atrial fibrillation Elevated blood sugar Asthma Hyperlipidemia HTN (hypertension) Stroke Surgical History Presence of single chamber implantable cardioverter-defibrillator (ICD) History of appendectomy History of tonsillectomy Family History Father Unknown family medical history Mother Unknown family medical history Social History Household Members: None Housing: Apartment Are you a primary field care advocate to a significant other at home: No Do you presently have visiting nurse or other home services: No Alcohol intake: current Alcohol intake frequency: holidays/special occasions only Patient Tobacco Use Status: Current someday Tobacco user Cigarettes Per Day: 4 Years Smoked: 70 +/- e-Cigarette/Vaping Use: Never Used Second Hand Smoke Exposure: No Advance Directives Date on File: 08/18/20 service: No Current occupational status: retired Cognitive needs: No Hearing needs: No Vision needs: No Physical Exam Vital Signs: Last Vital Signs Pulse 55 11/28/23 11:38 Pulse Ox 96 11/28/23 11:38 Oxygen Delivery Method Room Air 11/28/23 11:38 BMI result Body Mass Index 30.6 Const General: comfortable and no acute distress Orientation/consciousness: patient oriented x3 HEENT Head: Yes normocephalic Mouth: Normal oral and palatal mucosa present Eyes EOM: EOMs intact bilaterally Neck Neck: Yes supple Resp Auscultation: clear to auscultation bilaterally Cardio Jugular venous distension: no JVD Rate: regular rate GI Palpation (GI): Soft to palpation Auscultation: normal bowel sounds General: Yes no CVA tenderness Back/Spine/Pelvis Back: no CVA tenderness Skin General skin exam: no rashes or lesions noted Neuro General: patient oriented x3 and moves all extremities Extrem General: Yes no pedal edema Results Reviewed Nephrology Results: Sodium 143 mmol/L (135-145) 11/15/23 Potassium 4.4 mmol/L (3.3-5.1) 11/15/23 Chloride 111 mmol/L (96-108) H 11/15/23 Carbon Dioxide 23 mmol/L (22-29) 11/15/23 BUN 48 mg/dL (9-16) H 11/15/23 Creatinine 1.97 mg/dL (0.5-1.4) H 11/15/23 Calcium 10.0 mg/dL (8.4-10.2) 10/11/23 Urine Protein Negative mg/dL (Neg-Trace) 10/11/23 Assessment & Plan Assessment & Plan (1) CKD (chronic kidney disease) stage 4, GFR 15-29 ml/min: Code(s): N18.4 - Chronic kidney disease, stage 4 (severe) Category: Medical (2) HTN (hypertension): Code(s): I10 - Essential (primary) hypertension Category: Medical Qualifiers: Hypertension type: primary hypertension Qualified Code(s): I10 - Essential (primary) hypertension Plan Macoh has history of nonischemic cardiomyopathy. He is on HANNA-inhibitor and diuretics. He is closely followed by his manager fleet. He tries to use a minimal dietary sodium. His serum creatinine has improved after I reduced the dose of lisinopril to 2.5 mg daily. He can continue rest of his current medications for now. Follow up blood work ordered. All his questions were answered. Follow-up given Orders: Orders Creatinine Today I10 - Essential (primary) hypertension, N18.4 - Chronic kidney disease, stage 4 (severe) Electrolytes Today I10 - Essential (primary) hypertension, N18.4 - Chronic kidney disease, stage 4 (severe) Blood Urea Nitrogen Today I10 - Essential (primary) hypertension, N18.4 - Chronic kidney disease, stage 4 (severe) Coding Level of Care Code Est Pt Level 4 (59647) Diagnoses CKD (chronic kidney disease) stage 4, GFR 15-29 ml/min N18.4 Primary hypertension I10 Hypertension type: primary hypertension
== END 2023-11-28 11:58 | disposition home or self-care (01) ==
PROVIDERS: PCP Nurse Practitioner Family; Visit Provider Internal Medicine Nephrology
DX: I12.9 Hypertensive chronic kidney disease with stage 1 through stage 4 chronic kidney disease, or unspecified chronic kidney disease (principal); N18.4 Chronic kidney disease, stage 4 (severe)
CPT/HCPCS: 99214

== ENCOUNTER → 2023-11-28 11:34 | Outpatient (BNVA) | payer OTHER, SELFPAY | PROVIDERS: PCP Nurse Practitioner Family; Visit Provider Internal Medicine Nephrology | DX: I12.9 Hypertensive chronic kidney disease with stage 1 through stage 4 chronic kidney disease, or unspecified chronic kidney disease (principal); N18.4 Chronic kidney disease, stage 4 (severe) | CPT/HCPCS: 99212 ==

== ENCOUNTER 2023-11-29 08:16 | Outpatient (REF) | payer OTHER, SELFPAY ==
[2023-11-29 10:41] LABS: INTERNATIONAL NORM RATIO 2.3 (0.9-1.1); Prothrombin Time 27.4 SEC (11.1-13.3)
== END 2023-11-29 08:17 | disposition home or self-care (01) ==
LOC: HO.HMGCLR 08:16
PROVIDERS: PCP Nurse Practitioner Family; Visit Provider Nurse Practitioner Family
DX: Z79.01 Long term (current) use of anticoagulants (principal)
CPT/HCPCS: 36415; 85610

== ENCOUNTER → 2023-11-29 23:59 | Outpatient (BNV) | payer OTHER, SELFPAY ==
--- NOTE | 2023-12-08 21:58 | MHC.OFFVIS ---
Intake Visit Reasons: Remote HF monitoring- [employer] Allergies No Known Allergies [No Known Allergies*] Allergy (Verified 11/28/23 11:41) PFS Medical History Atherosclerotic cardiovascular disease Fatigue High triglycerides Erectile dysfunction Typical atrial flutter Nonischemic cardiomyopathy Hearing loss COPD (chronic obstructive pulmonary disease) Chronic a-fib Atrial fibrillation Elevated blood sugar Asthma Hyperlipidemia HTN (hypertension) Stroke Surgical History Presence of single chamber implantable cardioverter-defibrillator (ICD) History of appendectomy History of tonsillectomy Family History Father Unknown family medical history Mother Unknown family medical history Social History Household Members: None Housing: Apartment Are you a primary youth care specialist to a significant other at home: No Do you presently have visiting nurse or other home services: No Alcohol intake: current Alcohol intake frequency: holidays/special occasions only Patient Tobacco Use Status: Current someday Tobacco user Cigarettes Per Day: 4 Years Smoked: 70 +/- e-Cigarette/Vaping Use: Never Used Second Hand Smoke Exposure: No Advance Directives Date on File: 08/18/20 service: No Current occupational status: retired Cognitive needs: No Hearing needs: No Vision needs: No Office Procedures Cardiac Device Check Cardiac Device Check Details: ICD Good battery life. Ongoing volume overload based on Optivol. 75682 - Remote monitoring of wireless pulmonary artery pressure sensor 60229-CE Cardiac Device Check, single lead implantable defibrillator Procedure code (CPT) selection complete Assessment & Plan Assessment & Plan (1) ICD (implantable cardioverter-defibrillator) in place: Code(s): Z95.810 - Presence of automatic (implantable) cardiac defibrillator Category: Medical Plan Coding Level of Care Code Procedure Only Diagnoses ICD (implantable cardioverter-defibrillator) in place Z95.810 CPT Codes Cardiac Device Check - Cardiac Device 17: 97915 - Remote monitoring of wireless pulmonary artery pressure sensor ([id number]) Cardiac Device Check - Cardiac Device 4: 61222-MC Cardiac Device Check, single lead implantable defibrillator ([id number])
== END ==
PROVIDERS: PCP Nurse Practitioner Family; Visit Provider Internal Medicine Cardiovascular Disease
DX: Z45.02 Encounter for adjustment and management of automatic implantable cardiac defibrillator (principal)
CPT/HCPCS: 93297

== ENCOUNTER 2023-12-06 08:25 | Outpatient (REF) | payer OTHER, SELFPAY ==
[2023-12-06 11:43] LABS: INTERNATIONAL NORM RATIO 2.3 (0.9-1.1); Prothrombin Time 27.8 SEC (11.1-13.3)
== END 2023-12-06 08:26 | disposition home or self-care (01) ==
LOC: HO.HMGCLR 08:25
PROVIDERS: PCP Nurse Practitioner Family; Visit Provider Nurse Practitioner Family
DX: I48.91 Unspecified atrial fibrillation (principal); I48.92 Unspecified atrial flutter
CPT/HCPCS: 36415; 85610

== ENCOUNTER 2023-12-20 08:32 | Outpatient (REF) | payer OTHER, SELFPAY ==
[2023-12-20 10:23] LABS: INTERNATIONAL NORM RATIO 2.5 (0.9-1.1); Prothrombin Time 30.9 SEC (11.1-13.3)
== END 2023-12-20 08:33 | disposition home or self-care (01) ==
LOC: HO.HMGCLR 08:32
PROVIDERS: PCP Nurse Practitioner Family; Visit Provider Nurse Practitioner Family
DX: I48.91 Unspecified atrial fibrillation (principal)
CPT/HCPCS: 36415; 85610

== ENCOUNTER 2023-12-27 08:18 | Outpatient (REF) | payer OTHER, SELFPAY ==
[2023-12-27 10:24] LABS: INTERNATIONAL NORM RATIO 2.3 (0.9-1.1); Prothrombin Time 28.6 SEC (11.1-13.3)
== END 2023-12-27 08:19 | disposition home or self-care (01) ==
LOC: HO.HMGCLR 08:18
PROVIDERS: PCP Nurse Practitioner Family; Visit Provider Nurse Practitioner Family
DX: Z79.01 Long term (current) use of anticoagulants (principal)
CPT/HCPCS: 36415; 85610

== ENCOUNTER → 2023-12-31 23:59 | Outpatient (BNV) | payer OTHER, SELFPAY ==
--- NOTE | 2024-01-07 11:10 | A.OFFVIS_ITS ---
Intake Visit Reasons: Remote HF monitoring- Medtronic Allergies No Known Allergies [No Known Allergies*] Allergy (Verified 01/03/24 12:48) PFS Medical History Atherosclerotic cardiovascular disease Fatigue High triglycerides Erectile dysfunction Typical atrial flutter Nonischemic cardiomyopathy Hearing loss COPD (chronic obstructive pulmonary disease) Chronic a-fib Atrial fibrillation Elevated blood sugar Asthma Hyperlipidemia HTN (hypertension) Stroke Surgical History Presence of single chamber implantable cardioverter-defibrillator (ICD) History of appendectomy History of tonsillectomy Family History Father Unknown family medical history Mother Unknown family medical history Social History Household Members: None Housing: Apartment Are you a primary human services care specialist to a significant other at home: No Do you presently have visiting nurse or other home services: No Alcohol intake: current Alcohol intake frequency: holidays/special occasions only Patient Tobacco Use Status: Current someday Tobacco user Cigarettes Per Day: 4 Years Smoked: 70 +/- e-Cigarette/Vaping Use: Never Used Second Hand Smoke Exposure: No Advance Directives Date on File: 08/18/20 service: No Current occupational status: retired Cognitive needs: No Hearing needs: No Vision needs: No Office Procedures Cardiac Device Check Cardiac Device Check Details: HF monitoring. Optivol showing ongoing volume overload. We will reach out to the patient to assess. [id number] Cardiac Device Interrogation, cardio physiologic monitor Procedure code (CPT) selection complete Assessment & Plan Assessment & Plan (1) ICD (implantable cardioverter-defibrillator) in place: Code(s): Z95.810 - Presence of automatic (implantable) cardiac defibrillator Category: Medical Plan Orders: Orders AMB Cardiac Device Follow-up 12/31/23 Z95.810 - Presence of automatic (implantable) cardiac defibrillator Coding Level of Care Code Procedure Only Diagnoses ICD (implantable cardioverter-defibrillator) in place Z95.810 CPT Codes Cardiac Device Check - Cardiac Device 15: [id number] Cardiac Device Interrogation, cardio physiologic monitor ([id number])
== END ==
PROVIDERS: PCP Nurse Practitioner Family; Visit Provider Internal Medicine Cardiovascular Disease
DX: Z45.02 Encounter for adjustment and management of automatic implantable cardiac defibrillator (principal)
CPT/HCPCS: 93297

== ENCOUNTER 2024-01-03 12:45 | Outpatient (AMB) | payer OTHER, SELFPAY ==
--- NOTE | 2024-01-03 12:48 | MHC.OFFVIS ---
Intake Visit Reasons: ov- Bilateral hip pain last injection 10/04/23 Intake Note: Eder is a 83 year old male who presents to the office today for bilateral hip pain. Pts last injection was 10/04/23. Pt states the injections did help and would like bilateral hip injections today. Denies any weakness in either of his lower extremities. He does walk with a cane. He has tried Tylenol which gives him only mild relief. Allergies No Known Allergies [No Known Allergies*] Allergy (Verified 01/03/24 12:48) Medication List - Last Reconciled 01/03/24 by David Donovan MD albuterol sulfate 90 mcg/actuation 2 puffs inhalation Q6H PRN 30 days amiodarone 200 mg PO DAILY atorvastatin 40 mg PO DAILY 90 days blood sugar diagnostic (CyActive Ultra Test strips) Use to check fasting blood sugar and a random sugar daily blood-glucose meter (CyActive Ultra2 Meter) Use to check fasting blood sugar and a random sugar daily Breo Ellipta 100-25 mcg/dose (fluticasone furoate-vilanterol) 1 ea inhalation DAILY NS furosemide 40 mg PO DAILY lancets ([place] Delica Safety Lancet) Use to check fasting blood sugar and a random sugar daily lisinopril 2.5 mg PO DAILY metoprolol succinate ER (Toprol XL) 25 mg PO DAILY sildenafil 100 mg PO DAILY PRN 10 days trazodone 100 mg PO BEDTIME warfarin 2 mg See Protocol PO DAILY PFSH Medical History Atherosclerotic cardiovascular disease Fatigue High triglycerides Erectile dysfunction Typical atrial flutter Nonischemic cardiomyopathy Hearing loss COPD (chronic obstructive pulmonary disease) Chronic a-fib Atrial fibrillation Elevated blood sugar Asthma Hyperlipidemia HTN (hypertension) Stroke Surgical History Presence of single chamber implantable cardioverter-defibrillator (ICD) History of appendectomy History of tonsillectomy Family History Father Unknown family medical history Mother Unknown family medical history Social History Household Members: None Housing: Apartment Are you a primary manager progressive care to a significant other at home: No Do you presently have visiting nurse or other home services: No Alcohol intake: current Alcohol intake frequency: holidays/special occasions only Patient Tobacco Use Status: Current someday Tobacco user Cigarettes Per Day: 4 Years Smoked: 70 +/- e-Cigarette/Vaping Use: Never Used Second Hand Smoke Exposure: No Advance Directives Date on File: 08/18/20 service: No Current occupational status: retired Cognitive needs: No Hearing needs: No Vision needs: No Physical Exam Const Other: Well-nourished well-developed very friendly male awake alert and oriented x3 in no acute distress Extrem Other: Bilateral lower extremity examination shows good capillary refill, no skin lesions noted, normal sensation light touch Bilateral hip examination shows minimal discomfort with range of motion, tenderness over his greater trochanteric bursae, no overlying skin lesions Office Procedures Joint Injection/Drain Joint Injection/Drain Primary Site: other (Left hip greater trochanteric bursa) Prep: site was prepped using aseptic technique Injected: 40 mg of, DepoMedrol and 1% plain lidocaine Procedure: The patient tolerated the procedure well Coding 28685 - Large joint Procedure code (CPT) selection complete Joint Injection/Drain Joint Injection/Drain Primary Site: other (Right hip greater trochanteric bursa) Prep: site was prepped using aseptic technique Injected: 40 mg of, DepoMedrol and 1% plain lidocaine Procedure: The patient tolerated the procedure well Coding 92929 - Large joint Procedure code (CPT) selection complete Assessment & Plan Assessment & Plan (1) Trochanteric bursitis, left hip: Code(s): M70.62 - Trochanteric bursitis, left hip Category: Medical (2) Trochanteric bursitis, right hip: Code(s): M70.61 - Trochanteric bursitis, right hip Category: Medical Plan Mr. Farah presents with bilateral hip pains due to greater trochanteric bursitis. I had a lengthy discussion with the patient regarding the treatment options. The risks and benefits of bilateral hip greater trochanteric bursa cortisone injections were discussed at length with the patient. The patient wished to proceed. He tolerated the injections well. He will continue with his home exercise program. He will follow up with me on an as-needed basis should his symptoms not plateau at an unacceptable level over the next few months. Feel free to call me at any time should questions regarding his orthopedic management arise. I spent 21 minutes in reviewing the patient's records and imaging studies, seeing the patient and documenting in the medical record. Orders: Orders AMB Joint Injection/Aspiration Today M70.61 - Trochanteric bursitis, right hip AMB Joint Injection/Aspiration Today M70.62 - Trochanteric bursitis, left hip Coding Level of Care Code Est Pt Level 3 (39694) Diagnoses Trochanteric bursitis, left hip M70.62 Trochanteric bursitis, right hip M70.61 CPT Codes Coding - 15954 Large joint: 32712 - Large joint ([id number]) Coding - 00671 Large joint: 55251 - Large joint ([id number])
== END 2024-01-03 13:07 | disposition home or self-care (01) ==
PROVIDERS: PCP Nurse Practitioner Family; Visit Provider Orthopaedic Surgery
DX: M70.62 Trochanteric bursitis, left hip (principal); M70.61 Trochanteric bursitis, right hip
CPT/HCPCS: 20610; 99213

== ENCOUNTER → 2024-01-03 12:45 | Outpatient (BNVA) | payer OTHER, SELFPAY | PROVIDERS: PCP Nurse Practitioner Family; Visit Provider Orthopaedic Surgery | DX: M70.62 Trochanteric bursitis, left hip (principal); M70.61 Trochanteric bursitis, right hip | CPT/HCPCS: 20610; 99212; J1010 ==

== ENCOUNTER 2024-01-10 08:41 | Outpatient (REF) | payer OTHER, SELFPAY ==
[2024-01-10 10:13] LABS: INTERNATIONAL NORM RATIO 2.7 (0.9-1.1); Prothrombin Time 33.2 SEC (11.1-13.3)
== END 2024-01-10 08:42 | disposition home or self-care (01) ==
LOC: HO.HMGCLR 08:41
PROVIDERS: PCP Nurse Practitioner Family; Visit Provider Nurse Practitioner Family
DX: Z79.01 Long term (current) use of anticoagulants (principal)
CPT/HCPCS: 36415; 85610

== ENCOUNTER 2024-01-23 12:23 | Outpatient (AMB) | payer OTHER, MEDICAID, SELFPAY ==
[2024-01-23 12:43] VITALS: BP 130/62; PULSE 56; BMI 30.2
--- NOTE | 2024-01-23 12:43 | MHC.OFFVIS ---
Vital Signs 01/23/24 12:43 Height 5 ft 7 in Weight 192 lb 10.944 oz BMI 30.2 BP 130/62 Blood Pressure Location Lt brachial Position Sitting Pulse 56 Pulse Source Monitor Intake Visit Reasons: 4 mth f/up Intake Note: 4 mth f/up-pt is feeling fine- pt stop taking Lisinopril from having side affect. 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: No Accompanied by: Self / Same As Patient Allergies No Known Allergies [No Known Allergies*] Allergy (Verified 01/03/24 12:48) Medication List - Last Reconciled 01/23/24 by Bubba Mccullough MD albuterol sulfate 90 mcg/actuation 2 puffs inhalation Q6H PRN 30 days amiodarone 200 mg PO DAILY atorvastatin 40 mg PO DAILY 90 days blood sugar diagnostic (WeStudy.In Ultra Test strips) Use to check fasting blood sugar and a random sugar daily blood-glucose meter (WeStudy.In Ultra2 Meter) Use to check fasting blood sugar and a random sugar daily Breo Ellipta 100-25 mcg/dose (fluticasone furoate-vilanterol) 1 ea inhalation DAILY NS furosemide 40 mg PO DAILY lancets ([employer] Delica Safety Lancet) Use to check fasting blood sugar and a random sugar daily metoprolol succinate ER (Toprol XL) 25 mg PO DAILY sildenafil 100 mg PO DAILY PRN 10 days trazodone 100 mg PO BEDTIME warfarin 2 mg See Protocol PO DAILY HPI Comments Details: 83-year-old gentleman with nonischemic cardiomyopathy and background of atrial flutter. He has been experiencing significant episodes of atrial fibrillation based on device interrogations. He had at least 3 shocks by his device recently. On 1st occasion he was drinking alcohol and had a device shock which was thought to be due to atrial fibrillation. He also had recent episode where he had 3 device shocks and device interrogation currently showing tachycardia at approximately 200 beats per minute. The appearance looks like atrial flutter. We had previously tried a rhythm control strategy with him and he was given amiodarone but it appears he gained some weight after that and stop taking the amiodarone. When he was diagnosed with cardiomyopathy he was advised to be admitted the hospital to have a sotalol load but he has never agreed to be admitted to the hospital. He is denying chest discomfort currently. He is not complaining of any shortness of breath. He is saying before device shock he had nausea and sweating. He is saying that these symptoms are quite consistent before he had device shocks previously. He was started on amiodarone after discussion and since then has not had any shocks from his device. He has stop drinking alcohol. He has also stopped smoking in the last 4 months. He is taking medications regularly. He has EKG showing atrial fibrillation with occasional paced beats. He does not have any significant shortness of breath. No chest discomfort. 12/27/22: He is here for follow-up. He has been complaining of shortness of breath over the last week or so. He is saying he cannot lay flat in bed and gets orthopnea. Also walking around he is getting out of breath easily. Denying any peripheral edema or abdominal distension. He has been taking Lasix 40 mg once a day. Previously was advised to take 60 mg of Lasix. He is taking medications otherwise regularly. Recent echocardiography has shown EF of 30 35% which is mild improvement from severe dysfunction in the past. 02/07/23: On last visit we advised him to increase the Lasix to 40 mg twice a day. He was clinically overloaded at that time. Appears he took the Lasix for few days and then started having dizziness which she described like a vertigo like feeling. This is a chronic thing for him and has happened previously 2. After that episode he went back to Lasix once a day. He continues to have some shortness of breath and orthopnea. Still volume overloaded. 04/16/23: He returns for follow-up. He is saying he has some chest discomfort which was fullness/pressure over his chest lasting for many hours on . He said he went to bed and woke up without any significant issues. He was getting some breathing issues laying flat in bed. He has been drinking whiskey. He is saying he has not smoked cigarettes since . He was previously advised to take Lasix 40 mg twice a day but he has been taking it 2 to 3 times a week at b.i.d. dosing. Describing orthopnea at this point as well as weight gain. Excessive salt intake in diet and he ate ham on the day he had fullness in his chest. 09/12/23: He returns for follow-up. He is denying any chest discomfort. He is complaining of fatigue and dizziness. He is saying he has sleeping a lot. His heart rate is 45 with first-degree AV block. Blood pressure is 110/52. He is taking amiodarone 200 mg daily, lisinopril 5 mg daily, metoprolol succinate 100 mg daily and Coumadin. 01/23/2024: He is here for follow-up. Denying any chest discomfort. He said he has been short of breath and has been taking Lasix regularly. He has some orthopnea like episodes. He also had a rash on his body and he thought it is due to lisinopril and stop the lisinopril. Since then he is saying he is feeling better and the rashes healing. He has a papular rash all over his chest and arms. [facility] Medical History Atherosclerotic cardiovascular disease Fatigue High triglycerides Erectile dysfunction Typical atrial flutter Nonischemic cardiomyopathy Hearing loss COPD (chronic obstructive pulmonary disease) Chronic a-fib Atrial fibrillation Elevated blood sugar Asthma Hyperlipidemia HTN (hypertension) Stroke Surgical History Presence of single chamber implantable cardioverter-defibrillator (ICD) History of appendectomy History of tonsillectomy Family History Father Unknown family medical history Mother Unknown family medical history Social History Household Members: None Housing: Apartment Are you a primary urgent care physician assistant to a significant other at home: No Do you presently have visiting nurse or other home services: No Alcohol intake: current Alcohol intake frequency: holidays/special occasions only Patient Tobacco Use Status: Current someday Tobacco user Cigarettes Per Day: 4 Years Smoked: 70 +/- e-Cigarette/Vaping Use: Never Used Second Hand Smoke Exposure: No Advance Directives Date on File: 08/18/20 service: No Current occupational status: retired Cognitive needs: No Hearing needs: No Vision needs: No Review of Systems Const Denies chills, Denies fatigue, Denies fever(s), Denies frequent falls, Denies weakness, Denies weight gain and Denies weight loss ENT Denies dizziness Card Denies chest pain, Denies leg edema, Denies lightheadedness, Denies palpitations, Denies dyspnea and Denies dyspnea on exertion Resp Denies cough, Denies dyspnea and Denies dyspnea on exertion GI Denies hematochezia Musc Denies abnormal gait, Denies muscle weakness, Denies numbness, Denies radiating pain into limb and Denies tingling Neuro Denies abnormal gait, Denies dizziness, Denies frequent falls, Denies numbness, Denies tingling and Denies weakness Endo Denies fatigue and Denies palpitations Physical Exam Vital Signs: Last Vital Signs Pulse 56 01/23/24 12:43 BP 130/62 01/23/24 12:43 BMI result Body Mass Index 30.2 GENERAL APPEARANCE: in no acute distress, pleasant. SKIN: no suspicious lesions, warm and dry. HEART: no murmurs, regular rate and rhythm. Bradycardic. LUNGS: Clear to auscultation bilaterally. ABDOMEN: soft, nontender. Distended. EXTREMITIES: 1 to 2+ edema. PERIPHERAL PULSES: equal. NEUROLOGIC: No gross deficits, AAO X 3 Office Procedures EKG Details: Ectopic atrial rhythm 56 beats per minute, rightward axis, premature ventricular complexes, anterior infarct, QTC 443 milliseconds. [id number], Complete Assessment & Plan Assessment & Plan (1) Sinus bradycardia: Code(s): R00.1 - Bradycardia, unspecified Category: Medical (2) Chronic heart failure: Code(s): I50.9 - Heart failure, unspecified Category: Medical Plan [age] gentleman with nonischemic cardiomyopathy and chronic heart failure. Last ejection fraction assessment was in 12/28/2022 when EF was 30 35%. Clinically appears to be mildly overloaded and has peripheral edema by examination which is new. He is using Lasix 2 tablets in the morning which is 40 mg currently. I have advised him to take 20 mg in the afternoon in addition to the current dose. He had rash on the body which he thinks is due to lisinopril and after stopping lisinopril he has improved. He has been taking lisinopril for long time but he is convinced that this is the cause. He will not take this medication anymore. On Coumadin for anticoagulation. We will repeat labs as he is on amiodarone. We will also arrange an echocardiogram to reassess LV function as he has maintained sinus rhythm for long time now on amiodarone. Hopefully we will see some recovery in the LVEF. Thank you for allowing me to participate in the care of your patient. Please feel free to contact me if you have any questions. Orders: Orders B Type Natriuretic Peptide Today I50.9 - Heart failure, unspecified TSH reflex Free T4 Today I50.9 - Heart failure, unspecified CA echo transthorac w con Today I42.8 - Other cardiomyopathies Basic Metabolic Panel Today I50.9 - Heart failure, unspecified Complete Blood Count no Diff Today I50.9 - Heart failure, unspecified Liver Panel Today I50.9 - Heart failure, unspecified Medications: Changed From furosemide 40 mg PO DAILY I42.8 - Other cardiomyopathies To furosemide Take 2 tablets in the morning and 1 tablet in the afternoon orally; 120 tabs 3RF I42.8 - Other cardiomyopathies Coding Level of Care Code Est Pt Level 4 (62379) Diagnoses Sinus bradycardia R00.1 Chronic heart failure I50.9 CPT Codes EKG - CPT: 71014-Uxmiljeyplrnddacu, Complete ([id number])
== END 2024-01-23 13:14 | disposition home or self-care (01) ==
PROVIDERS: PCP Nurse Practitioner Family; Visit Provider Internal Medicine Cardiovascular Disease
DX: R00.1 Bradycardia, unspecified (principal); I50.9 Heart failure, unspecified
CPT/HCPCS: 93010; 99214

== ENCOUNTER → 2024-01-23 12:23 | Outpatient (BNVA) | payer OTHER, SELFPAY | PROVIDERS: PCP Nurse Practitioner Family; Visit Provider Internal Medicine Cardiovascular Disease | DX: I50.9 Heart failure, unspecified (principal); I42.8 Other cardiomyopathies; R06.02 Shortness of breath; R06.01 Orthopnea; R21 Rash and other nonspecific skin eruption; R00.1 Bradycardia, unspecified; Z79.899 Other long term (current) drug therapy | CPT/HCPCS: 93005; 99212 ==

== ENCOUNTER 2024-01-24 07:59 | Outpatient (REF) | payer OTHER, MEDICAID, SELFPAY ==
[2024-01-24 10:08] LABS: Hemoglobin 11.3 g/dl (14.0-18.0); Mean Corpuscular HGB Conc 33.2 g/dl (31.0-36.0); Mean Corpuscular Hemoglobin 33.7 pg (27.0-33.0); Mean Corpuscular Volume 101.5 fL (80.0-98.0); Mean Platelet Volume 12.8 fL (9.4-12.4); Platelet Count 118 X10*3/uL (160-400); Red Blood Count 3.35 X10*6/uL (4.60-5.80); Red Cell Distribution Width 14.9 % (11.0-16.0); White Blood Count 5.3 X10*3/uL (4.8-10.8)
[2024-01-24 10:15] LABS: INTERNATIONAL NORM RATIO 2.3 (0.9-1.1); Prothrombin Time 28.6 SEC (11.1-13.3)
[2024-01-24 10:24] LABS: Alanine Aminotransferase 50 U/L (0-40); Albumin Level 3.9 g/dL (3.5-5.0); Alkaline Phosphatase 255 U/L (39-117); Anion Gap 15 (12-20); Aspartate Amino Transferase 34 U/L (5-37); Bilirubin Direct 0.4 mg/dL (0.0-0.5); Bilirubin Total 0.8 mg/dL (0.0-1.0); Blood Urea Nitrogen 37 mg/dL (9-16); Calcium 9.2 mg/dL (8.4-10.2); Carbon Dioxide 23 mmol/L (22-29); Chloride 106 mmol/L (96-108); Estimated Glomerular Filt Rate 34; Glucose Random 146 mg/dL (60-115); Potassium 3.9 mmol/L (3.3-5.1); Sodium 140 mmol/L (135-145); Total Protein 6.9 g/dL (6.5-8.0)
[2024-01-24 10:40] LABS: TSH reflex Free T4 1.19 uIU/mL (0.32-4.0)
[2024-01-24 10:49] LABS: B Type Natriuretic Peptide 2280 pg/mL (<100)
== END 2024-01-24 08:00 | disposition home or self-care (01) ==
LOC: HO.HMGCLR 07:59
PROVIDERS: PCP Nurse Practitioner Family; Referring Provider Internal Medicine Cardiovascular Disease; Visit Provider Nurse Practitioner Family
DX: I50.9 Heart failure, unspecified (principal); Z79.01 Long term (current) use of anticoagulants
CPT/HCPCS: 36415; 80048; 80076; 83880; 84443; 85027; 85610

== ENCOUNTER → 2024-02-01 23:59 | Outpatient (BNV) | payer OTHER, MEDICAID, SELFPAY ==
--- NOTE | 2024-02-12 18:32 | MHC.OFFVIS ---
Intake Visit Reasons: Remote ICD monitoring- Medtr[employer] Allergies lisinopril Allergy (Intermediate, Verified 01/23/24 13:17) Rash [facility] Medical History Atherosclerotic cardiovascular disease Fatigue High triglycerides Erectile dysfunction Typical atrial flutter Nonischemic cardiomyopathy Hearing loss COPD (chronic obstructive pulmonary disease) Chronic a-fib Atrial fibrillation Elevated blood sugar Asthma Hyperlipidemia HTN (hypertension) Stroke Surgical History Presence of single chamber implantable cardioverter-defibrillator (ICD) History of appendectomy History of tonsillectomy Family History Father Unknown family medical history Mother Unknown family medical history Social History Household Members: None Housing: Apartment Are you a primary resident care manager to a significant other at home: No Do you presently have visiting nurse or other home services: No Alcohol intake: current Alcohol intake frequency: holidays/special occasions only Patient Tobacco Use Status: Current someday Tobacco user Cigarettes Per Day: 4 Years Smoked: 70 +/- e-Cigarette/Vaping Use: Never Used Second Hand Smoke Exposure: No Advance Directives Date on File: 08/18/20 service: No Current occupational status: retired Cognitive needs: No Hearing needs: No Vision needs: No Office Procedures Cardiac Device Check Cardiac Device Check Details: ICD No new alerts Good battery life. [id number] Cardiac Device Check, dual lead implantable defibrillator Procedure code (CPT) selection complete Assessment & Plan Assessment & Plan (1) ICD (implantable cardioverter-defibrillator) in place: Code(s): Z95.810 - Presence of automatic (implantable) cardiac defibrillator Category: Medical Plan Coding Level of Care Code Procedure Only Diagnoses ICD (implantable cardioverter-defibrillator) in place Z95.810 CPT Codes Cardiac Device Check - Cardiac Device 5: [id number] Cardiac Device Check, dual lead implantable defibrillator ([id number])
== END ==
PROVIDERS: PCP Nurse Practitioner Family; Visit Provider Internal Medicine Cardiovascular Disease
DX: Z45.02 Encounter for adjustment and management of automatic implantable cardiac defibrillator (principal)
CPT/HCPCS: 93295

== ENCOUNTER → 2024-02-01 23:59 | Outpatient (BNV) | payer OTHER, MEDICAID, SELFPAY ==
--- NOTE | 2024-02-12 18:34 | MHC.OFFVIS ---
Intake Visit Reasons: Remote HF monitoring- [employer]tr[employer] Allergies lisinopril Allergy (Intermediate, Verified 01/23/24 13:17) Rash PFSH Medical History Atherosclerotic cardiovascular disease Fatigue High triglycerides Erectile dysfunction Typical atrial flutter Nonischemic cardiomyopathy Hearing loss COPD (chronic obstructive pulmonary disease) Chronic a-fib Atrial fibrillation Elevated blood sugar Asthma Hyperlipidemia HTN (hypertension) Stroke Surgical History Presence of single chamber implantable cardioverter-defibrillator (ICD) History of appendectomy History of tonsillectomy Family History Father Unknown family medical history Mother Unknown family medical history Social History Household Members: None Housing: Apartment Are you a primary customer care voice consultant to a significant other at home: No Do you presently have visiting nurse or other home services: No Alcohol intake: current Alcohol intake frequency: holidays/special occasions only Patient Tobacco Use Status: Current someday Tobacco user Cigarettes Per Day: 4 Years Smoked: 70 +/- e-Cigarette/Vaping Use: Never Used Second Hand Smoke Exposure: No Advance Directives Date on File: 08/18/20 service: No Current occupational status: retired Cognitive needs: No Hearing needs: No Vision needs: No Office Procedures Cardiac Device Check Cardiac Device Check Details: HF monitoring Good battery life OptiVol showing ongoing volume overload. [id number] Cardiac Device Interrogation, cardio physiologic monitor Procedure code (CPT) selection complete Assessment & Plan Assessment & Plan (1) Chronic heart failure: Code(s): I50.9 - Heart failure, unspecified Category: Medical Plan: Coding Level of Care Code Procedure Only Diagnoses Chronic heart failure I50.9 CPT Codes Cardiac Device Check - Cardiac Device 15: [id number] Cardiac Device Interrogation, cardio physiologic monitor ([id number])
== END ==
PROVIDERS: PCP Nurse Practitioner Family; Visit Provider Internal Medicine Cardiovascular Disease
DX: I50.9 Heart failure, unspecified (principal); Z95.810 Presence of automatic (implantable) cardiac defibrillator
CPT/HCPCS: 93297

== ENCOUNTER 2024-02-07 08:10 | Outpatient (REF) | payer OTHER, MEDICAID, SELFPAY ==
[2024-02-07 10:08] LABS: INTERNATIONAL NORM RATIO 3.2 (0.9-1.1); Prothrombin Time 39.5 SEC (11.1-13.3)
[2024-02-07 10:21] LABS: Anion Gap 15 (12-20); Blood Urea Nitrogen 33 mg/dL (9-16); Carbon Dioxide 28 mmol/L (22-29); Chloride 101 mmol/L (96-108); Estimated Glomerular Filt Rate 27; Sodium 140 mmol/L (135-145)
== END 2024-02-07 08:11 | disposition home or self-care (01) ==
LOC: HO.HMGCLR 08:10
PROVIDERS: PCP Nurse Practitioner Family; Referring Provider Internal Medicine Nephrology; Visit Provider Nurse Practitioner Family
DX: I12.9 Hypertensive chronic kidney disease with stage 1 through stage 4 chronic kidney disease, or unspecified chronic kidney disease (principal); N18.4 Chronic kidney disease, stage 4 (severe); Z79.01 Long term (current) use of anticoagulants
CPT/HCPCS: 36415; 80051; 82565; 84520; 85610

== ENCOUNTER 2024-02-13 11:02 | Outpatient (AMB) | payer OTHER, MEDICAID, SELFPAY ==
[2024-02-13 11:41] VITALS: BP 104/70; PULSE 60; O2SAT 98; BMI 30.9
--- NOTE | 2024-02-13 11:41 | HO.NEPHOV_ITS ---
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 He did not tolerating HANNA-inhibitor. He is on diuretics. His electrophysiologist has increased his diuretics but he is not taking the recommended dose. He does not have any chest pain, shortness of breath, proximal nocturnal dyspnea, orthopnea. His urine output is good. He avoids nonsteroidal anti-inflammatories. He is closely followed up with Cardiology. He has no symptoms of peripheral arterial disease. His serum creatinine is close to baseline [facility] Medical History Atherosclerotic cardiovascular disease Fatigue High triglycerides Erectile dysfunction Typical atrial flutter Nonischemic cardiomyopathy Hearing loss COPD (chronic obstructive pulmonary disease) Chronic a-fib Atrial fibrillation Elevated blood sugar Asthma Hyperlipidemia HTN (hypertension) Stroke Surgical History Presence of single chamber implantable cardioverter-defibrillator (ICD) History of appendectomy History of tonsillectomy Family History Father Unknown family medical history Mother Unknown family medical history Social History Household Members: None Housing: Apartment Are you a primary primary care nurse practitioner to a significant other at home: No Do you presently have visiting nurse or other home services: No Alcohol intake: current Alcohol intake frequency: holidays/special occasions only Patient Tobacco Use Status: Current someday Tobacco user Cigarettes Per Day: 4 Years Smoked: 70 +/- e-Cigarette/Vaping Use: Never Used Second Hand Smoke Exposure: No Advance Directives Date on File: 08/18/20 service: No Current occupational status: retired Cognitive needs: No Hearing needs: No Vision needs: No Review of Systems Const All systems reviewed & are unremarkable except as noted in HPI and below Physical Exam Vital Signs: Last Vital Signs Pulse 60 02/13/24 11:41 BP 104/70 02/13/24 11:41 Pulse Ox 98 02/13/24 11:41 Oxygen Delivery Method Room Air 02/13/24 11:41 BMI result Body Mass Index 30.9 Const General: comfortable and no acute distress Orientation/consciousness: patient oriented x3 HEENT Head: Yes normocephalic Mouth: Normal oral and palatal mucosa present Eyes EOM: EOMs intact bilaterally Neck Neck: Yes supple Resp Auscultation: clear to auscultation bilaterally Cardio Jugular venous distension: no JVD Rate: regular rate GI Palpation (GI): Soft to palpation Auscultation: normal bowel sounds General: Yes no CVA tenderness Back/Spine/Pelvis Back: no CVA tenderness Skin General skin exam: no rashes or lesions noted Neuro General: patient oriented x3 and moves all extremities Extrem General: Yes no pedal edema Results Reviewed Nephrology Results: Hgb 11.3 g/dl (14.0-18.0) L 01/24/24 WBC 5.3 X10*3/uL (4.8-10.8) 01/24/24 Plt Count 118 X10*3/uL (160-400) L 01/24/24 Sodium 140 mmol/L (135-145) 02/07/24 Potassium 4.0 mmol/L (3.3-5.1) 02/07/24 Chloride 101 mmol/L (96-108) 02/07/24 Carbon Dioxide 28 mmol/L (22-29) 02/07/24 BUN 33 mg/dL (9-16) H 02/07/24 Creatinine 2.36 mg/dL (0.5-1.4) H 02/07/24 Calcium 9.2 mg/dL (8.4-10.2) 01/24/24 Assessment & Plan Assessment & Plan (1) CKD (chronic kidney disease) stage 4, GFR 15-29 ml/min: Code(s): N18.4 - Chronic kidney disease, stage 4 (severe) Category: Medical (2) HTN (hypertension): Code(s): I10 - Essential (primary) hypertension Category: Medical Qualifiers: Hypertension type: primary hypertension Qualified Code(s): I10 - Essential (primary) hypertension Plan Macho has history of nonischemic cardiomyopathy. He is on HANNA-inhibitor and diuretics. I asked him to keep the dose of diuretics as cardiology recommended and could reduce the dose when he is back to baseline weight. He is closely followed by his electrophysiologist. He tries to use a minimal dietary sodium. He has stopped ACEI by himself. He is a great candidate for Farxiga, if he tolerates it. He can continue rest of his current medications for now. Follow up blood work ordered. All his questions were answered. Orders: Orders Creatinine Today N18.4 - Chronic kidney disease, stage 4 (severe) Blood Urea Nitrogen Today N18.4 - Chronic kidney disease, stage 4 (severe) Electrolytes Today N18.4 - Chronic kidney disease, stage 4 (severe) Coding Level of Care Code Est Pt Level 4 (18504) Diagnoses CKD (chronic kidney disease) stage 4, GFR 15-29 ml/min N18.4 Primary hypertension I10 Hypertension type: primary hypertension
== END 2024-02-13 12:14 | disposition home or self-care (01) ==
PROVIDERS: PCP Nurse Practitioner Family; Visit Provider Internal Medicine Nephrology
DX: I12.9 Hypertensive chronic kidney disease with stage 1 through stage 4 chronic kidney disease, or unspecified chronic kidney disease (principal); N18.4 Chronic kidney disease, stage 4 (severe)
CPT/HCPCS: 99214

== ENCOUNTER → 2024-02-13 11:02 | Outpatient (BNVA) | payer OTHER, MEDICAID, SELFPAY | PROVIDERS: PCP Nurse Practitioner Family; Visit Provider Internal Medicine Nephrology | DX: I12.9 Hypertensive chronic kidney disease with stage 1 through stage 4 chronic kidney disease, or unspecified chronic kidney disease (principal); N18.4 Chronic kidney disease, stage 4 (severe) | CPT/HCPCS: 99212 ==

== ENCOUNTER 2024-02-21 07:51 | Outpatient (REF) | payer OTHER, SELFPAY ==
--- NOTE | ~2024-02-21 | XR_ITS ---
EXAMINATION: XR CHEST CLINICAL INFORMATION: Wheezing, shortness of breath COMPARISON: 09/20/2022 TECHNIQUE: 2 views of the chest were obtained. FINDINGS: Heart is enlarged. Left subclavian AICD in good position. There is increased central vascular congestion with diffuse interstitial and groundglass opacities bilaterally most consistent with underlying edema. No significant pleural effusions. XR/XR chest 2V IMPRESSION: Cardiomegaly with vascular congestion and pulmonary edema. Electronically signed by: Liam Marvin MD 02/21/2024 03:56 PM EDT
[2024-02-21 10:18] LABS: INTERNATIONAL NORM RATIO 3.2 (0.9-1.1); Prothrombin Time 38.4 SEC (11.1-13.3)
== END 2024-02-21 07:52 | disposition home or self-care (01) ==
LOC: HO.HMGCX 07:51
PROVIDERS: PCP Nurse Practitioner Family; Visit Provider Nurse Practitioner Family
DX: R06.2 Wheezing (principal); Z79.01 Long term (current) use of anticoagulants
CPT/HCPCS: 36415; 71046; 85610

== ENCOUNTER 2024-02-21 08:02 | Outpatient (AMB) | payer OTHER, MEDICAID, SELFPAY ==
[2024-02-21 08:05] VITALS: BP 138/74; PULSE 57; TEMP 36.5; O2SAT 93; BMI 31.6
--- NOTE | 2024-02-21 08:05 | MHC.OFFWIV ---
Intake Vital Signs 02/21/24 08:05 Height 5 ft 7 in Weight 202 lb BMI 31.6 BP 138/74 Blood Pressure Location Lt brachial Position Sitting Pulse 57 Pulse Source Pulse Oximeter Temp 97.7 F Temp Source Oral Pulse Oximetry (%) 93 Oxygen Delivery Method Room Air Intake Visit Reasons: EP SOB, Weak ?med reaction Intake Note: pt c/o SOB, weakness. Started 2 1/2 months ago. ? med reaction. Patient Tobacco Use Status: Current someday Tobacco user Allergies lisinopril Allergy (Intermediate, Verified 02/21/24 08:09) Rash Do you need a note to return to daycare/school/sports/work: No HPI HPI Comments History of Present Illness Details 84 y/o male patient who presents to the walk in clinic with c/o SOB and wheezing for 2 months. He believes his symptoms are getting worse in the past 1 week. He does endorse generalized malaise and fatigue. H/o COPD and currently using Inhalers. PFSH Medical History Atherosclerotic cardiovascular disease Fatigue High triglycerides Erectile dysfunction Typical atrial flutter Nonischemic cardiomyopathy Hearing loss COPD (chronic obstructive pulmonary disease) Chronic a-fib Atrial fibrillation Elevated blood sugar Asthma Hyperlipidemia HTN (hypertension) Stroke Surgical History Presence of single chamber implantable cardioverter-defibrillator (ICD) History of appendectomy History of tonsillectomy Family History Father Unknown family medical history Mother Unknown family medical history Social History Household Members: None Housing: Apartment Are you a primary progressive care nurse to a significant other at home: No Do you presently have visiting nurse or other home services: No Alcohol intake: current Alcohol intake frequency: holidays/special occasions only Patient Tobacco Use Status: Current someday Tobacco user Cigarettes Per Day: 4 Years Smoked: 70 +/- e-Cigarette/Vaping Use: Never Used Second Hand Smoke Exposure: No Advance Directives Date on File: 08/18/20 service: No Current occupational status: retired Cognitive needs: No Hearing needs: No Vision needs: No Review of Systems Const All systems reviewed & are unremarkable except as noted in HPI and below Physical Exam Vital Signs: Last Vital Signs Temp 97.7 F 02/21/24 08:05 Pulse 57 02/21/24 08:05 BP 138/74 02/21/24 08:05 Pulse Ox 93 02/21/24 08:05 Oxygen Delivery Method Room Air 02/21/24 08:05 BMI result Body Mass Index 31.6 Const General: cooperative and no acute distress Nutritional Appearance: obese Orientation/consciousness: patient oriented x3 Resp Effort & Inspection: normal respiratory effort, able to speak in complete sentences and no audible wheezes Auscultation: no crackles, no rales, rhonchi and wheezes Cardio Heart sounds: S1 normal heart sound present and S2 normal heart sound present Neuro General: patient oriented x3, gait normal and moves all extremities Psych Speech and movement: Normal speech and movement present Assessment & Plan Assessment & Plan (1) Wheezing on auscultation: Code(s): R06.2 - Wheezing Plan: Ordered chest Xray Prednisone for 5 days Ordered Abx F/U with PCP. Orders: Orders XR chest 2V Today R06.2 - Wheezing Medications: New prednisone 50 mg PO DAILY 5 days 5 tabs 0RF R06.02 - Shortness of breath, R06.2 - Wheezing doxycycline hyclate 100 mg PO BID 7 days 14 caps 0RF R06.2 - Wheezing Coding Level of Care Code Est Pt Level 3 (33281) Diagnoses Wheezing on auscultation R06.2 Time Spent (min) 15
== END 2024-02-21 09:05 | disposition home or self-care (01) ==
PROVIDERS: PCP Nurse Practitioner Family; Visit Provider Nurse Practitioner Family
DX: R06.2 Wheezing (principal)
CPT/HCPCS: 99213

== ENCOUNTER 2024-02-21 21:58 | Inpatient (IN) | payer OTHER, SELFPAY ==
[2024-02-21 22:01] VITALS: BP 125/67; PULSE 55; O2SAT 97
[2024-02-21 22:05] VITALS: BP 133/44; PULSE 56; RESP 13; TEMP 36.9; O2SAT 92; BMI 32.5
[2024-02-21 22:09] VITALS: BP 124/44; PULSE 56; RESP 20; TEMP 36.9; O2SAT 97
--- NOTE | 2024-02-21 22:17 | ECG_ITS ---
Test Reason : sob Blood Pressure : / mmHG Vent. Rate : 055 BPM Atrial Rate : 000 BPM P-R Int : 000 ms QRS Dur : 108 ms QT Int : 430 ms P-R-T Axes : 000 -57 -22 degrees QTc Int : 411 ms Sinus bradycardia Left axis deviation Low voltage QRS Inferior infarct (cited on or before 02-JUL-2020) Cannot rule out Anteroseptal infarct (cited on or before 14-JAN-2020) Abnormal ECG When compared with ECG of 06-FEB-2022 14:00, Nonspecific T wave abnormality now evident in Lateral leads Referred By: Nacho Gonzalez Electronically Signed By:REA ARMSTRONG
--- NOTE | 2024-02-21 22:20 | ED.SOB ---
HPI - SOB/Dyspnea General Chief Complaint: Dyspnea Stated Complaint: has pneumonia, sob on exertion Time Seen by Provider: 02/21/24 22:19 Source: patient Mode of arrival: ambulatory Limitations: no limitations History of Present Illness ED Provider: dania NDIAYE Narrative: Patient 84 years old with history of nonischemic cardiomyopathy with chronic heart failure with ejection facial 32 35% on Lasix 40 mg BID not urinating that much feels fluid overloaded worsening of shortness a breath for last 2 months no fever no chills unable to lay flat in the nighttime patient was seen by PCP earlier today sent to the ER for possible pneumonia patient denied any fever cough is mostly dry with occasional mucoid phlegm Related Data Previous Rx's ?Medication ?Instructions ?Recorded blood sugar diagnostic ([employer] #100 ea 12/19/22 Ultra Test strips) blood-glucose meter (OneTouch #1 ea 12/19/22 Ultra2 Meter) lancets 30 gauge ([employer] #100 ea 12/19/22 Safety Lancet) sildenafil 100 mg tablet 100 mg PO DAILY PRN sexual 06/07/23 activity 10 days #10 tabs atorvastatin 40 mg tablet 40 mg PO DAILY 90 days #90 tabs 08/27/23 trazodone 100 mg tablet 100 mg PO BEDTIME #90 tabs 12/02/23 Breo Ellipta 100 mcg-25 mcg/dose 1 ea inhalation DAILY #180 ea 12/06/23 powder for inhalation (fluticasone furoate-vilanterol) albuterol sulfate 90 mcg/actuation 2 puff inhalation Q6H PRN 01/02/24 aerosol inhaler Shortness Of Breath 30 days #8.5 grams warfarin 2 mg tablet 2 mg PO DAILY #30 tabs 01/11/24 furosemide 20 mg tablet 40 mg (2 x 20 mg) PO BID #120 tabs 01/27/24 amiodarone 200 mg tablet 200 mg PO DAILY #90 tabs 02/21/24 doxycycline hyclate 100 mg capsule 100 mg PO BID 7 days #14 caps 02/21/24 prednisone 50 mg tablet 50 mg PO DAILY 5 days #5 tabs 02/21/24 Allergies Allergy/AdvReac Type Severity Reaction Status Date / Time lisinopril Allergy Intermediate Rash Verified 02/21/24 22:12 Review of Systems Review of Systems: Yes all other systems are reviewed and are negative PMFSH Past Medical History Medical History Atherosclerotic cardiovascular disease Fatigue High triglycerides Erectile dysfunction Typical atrial flutter Nonischemic cardiomyopathy Hearing loss COPD (chronic obstructive pulmonary disease) Chronic a-fib Atrial fibrillation Elevated blood sugar Asthma Hyperlipidemia HTN (hypertension) Stroke Surgical History Presence of single chamber implantable cardioverter-defibrillator (ICD) History of appendectomy History of tonsillectomy Family History Family History Father Unknown family medical history Mother Unknown family medical history Social History Social History Household Members: None Housing: Apartment Are you a primary home care rn to a significant other at home: No Do you presently have visiting nurse or other home services: No Alcohol intake: current Alcohol intake frequency: holidays/special occasions only Patient Tobacco Use Status: Current someday Tobacco user Cigarettes Per Day: 4 Years Smoked: 70 +/- Smoked in Last 30 Days: No e-Cigarette/Vaping Use: Never Used Second Hand Smoke Exposure: No Use of substances other than those prescribed or required for medical reasons: No Advance Directives: Yes Advance Directives on File: Yes Advance Directives Date on File: 08/18/20 Do you have a plan to hurt others: No Plan service: No Current occupational status: retired Cognitive needs: No Hearing needs: No Vision needs: No Physical Exam Vital Signs: Vital Signs: Last Vital Signs Temp 98.4 F 02/22/24 00:51 Pulse 57 02/22/24 00:51 Resp 15 02/22/24 00:51 BP 108/55 L 02/22/24 00:57 Pulse Ox 98 02/22/24 00:51 O2 Del Method Room Air 02/22/24 00:51 BMI result Body Mass Index 32.5 Appearance: Alert. Oriented X3. No acute distress. Eyes: PERRLA, No Nystagmus ENT: Pharynx normal. Oral Mucosa moist Neck: Normal inspection. Neck supple. CVS: Normal heart rate and rhythm. Pulses normal. Respiratory: No respiratory distress. Equal air entry bilateral, bilateral fine crackles diffuse Abdomen: Soft and nontender. Bowel sounds are present, no mass palpable, no CVA tenderness Skin: Skin warm and dry. Normal skin color. Normal skin turgor. Extremities: 2+ lower extremity edema. No calf tenderness Neuro: Oriented X 3. No motor deficit. No sensory deficit.No cerebellar signs , cranial nerves II-XII intact Medications Administered Discontinued Medications Generic Name Dose Route Start Last Admin Trade Name Freq PRN Reason Stop Dose Admin Bumetanide 1 mg 02/22/24 00:21 02/22/24 00:57 Bumetanide 1 Mg/4 Ml Vial IVPUSH 02/22/24 00:22 1 mg ONCE ONE Administration Protocol Furosemide 40 mg 02/21/24 22:26 02/21/24 22:49 Furosemide 40 Mg/4 Ml Vial IVPUSH 02/21/24 22:27 40 mg STAT STA Administration Protocol Medical Decision Making Medical Decision Making [facility] Narrative: Patient has nonischemic cardiomyopathy with congestive heart failure comes here for worsening of shortness a breath noted to have in pulmonary edema lab workup showed elevated creatinine from 2.36 to 3.08 now was given IV Lasix and IV Bumex feeling much better during stay in the will admit patient for CHF exacerbation and YUMIKO Differential Diagnosis Differential Diagnoses: The differential diagnosis associated with the presentation includes CHF/ACS/fluid overload Admission/Observation Consideration of admission/observation: Escalation of care including admission/observation considered Consult Healthcare Provider Management of the patient was discussed with: Hospitalist Lab Data [facility] Lab Attestation statement: I reviewed the patient's lab results. 02/21/24 22:45 02/21/24 22:45 Labs: Lab Results 02/21/24 Range/Units 22:45 WBC 5.8 (4.8-10.8) X10*3/uL RBC 3.57 L (4.60-5.80) X10*6/uL Hgb 10.8 L (14.0-18.0) g/dl Hct 33.9 L (42.0-52.0) % MCV 95.0 (80.0-98.0) fL MCH 30.3 (27.0-33.0) pg MCHC 31.9 (31.0-36.0) g/dl RDW 14.7 (11.0-16.0) % Plt Count 139 L (160-400) X10*3/uL MPV 12.2 (9.4-12.4) fL Immature Gran % (Auto) 0.3 (0.0-0.4) % Neut % (Auto) 92.5 H (45-73) % Lymph % (Auto) 4.6 L (20-40) % [place] % (Auto) 2.6 (2-11) % Eos % (Auto) 0.0 (0-4) % Baso % (Auto) 0.0 (0-2) % Lymph # (Auto) 0.3 L (1.2-4.9) X10*3/uL [place] # (Auto) 0.2 (0.1-1.2) X10*3/uL Eos # (Auto) 0.0 (0.0-0.4) X10*3/uL Baso # (Auto) 0.0 (0.0-0.2) X10*3/uL Abs Immat Gran (auto) 0.02 (0.00-0.03) X10*3/uL Absolute Neuts (auto) 5.4 (2.0-8.3) x10*3/uL Absolute Nucleated RBC 0.000 (0.0-0.012) X10*3/uL Nucleated RBC % (auto) 0.0 (0.0-0.2) /100WBC Smear Tech's Comments VERIFIED Sodium 141 (135-145) mmol/L Potassium 4.4 (3.3-5.1) mmol/L Chloride 102 (96-108) mmol/L Carbon Dioxide 25 (22-29) mmol/L Anion Gap 18 (12-20) BUN 45 H (9-16) mg/dL Creatinine 3.08 H (0.5-1.4) mg/dL Estim Creat Clear Calc 19.8 Estimated GFR 19 Random Glucose 162 H (60-115) mg/dL Calcium 9.5 (8.4-10.2) mg/dL Total Bilirubin 1.3 H (0.0-1.0) mg/dL AST 42 H (5-37) U/L ALT 48 H (0-40) U/L Alkaline Phosphatase 320 H (39-117) U/L Troponin I High Sens 19.0 D (<3.5-35.0) ng/L B-Natriuretic Peptide 3067 H (<100) pg/mL Total Protein 6.8 (6.5-8.0) g/dL Albumin 3.7 (3.5-5.0) g/dL Independent Interpretation I performed an independent interpretation of an: EKG and Plain X-Ray Interpretation: Left axis deviation heart rate 55 beats per minute poor progression of R-wave no acute STT wave changes no acute ischemia Radiology Impression Discussion of test interpretation with radiology: I have reviewed the radiologist's reading. Radiologist Impression: EXAMINATION: XR CHEST CLINICAL INFORMATION: Wheezing, shortness of breath COMPARISON: 09/20/2022 TECHNIQUE: 2 views of the chest were obtained. FINDINGS: Heart is enlarged. Left subclavian AICD in good position. There is increased central vascular congestion with diffuse interstitial and groundglass opacities bilaterally most consistent with underlying edema. No significant pleural effusions. XR/XR chest 2V IMPRESSION: Cardiomegaly with vascular congestion and pulmonary edema. Electronically signed by: Liam Marvin MD 02/21/2024 03:56 PM EDT Dictated By: Liam Marvin MD Signed By: <Electronically signed by Liam Marvin MD in OV> 02/21/24 1556 DD/ 1225 TD/TT: 02/21/24 1230 Crop Pest Control Specialist: External Record Review External record reviewed: Inpatient record Critical Care Time Critical Care Time Critical Care Time: Yes Total Critical Care Time: 55 Attestation: The patient was critically ill with a high probability of imminent or life threatening deterioration. I spent greater than 60??minutes of discontinuous time evaluating the patient,delivering critical care at the bedside, discussing and evaluating pertinent data with consultants. Critical care time does not include time spent performing separately billable procedures or teaching. Total time spent performing critical care was 55???minutes. Discharge Plan Discharge Clinical Impression: Acute kidney injury superimposed on chronic kidney disease Acute on chronic heart failure Qualifiers: Heart failure type: systolic Qualified Code(s): I50.23 - Acute on chronic systolic (congestive) heart failure Patient Disposition: Admitted As Inpatient Print Language: Cuban
[2024-02-21 22:49] VITALS: BP 133/44
[2024-02-21] MEDS: Furosemide 40 MG/4 ML VIAL IVPUSH (22:49)
[2024-02-21 22:51] LABS: Hematocrit 33.9 % (42.0-52.0); Hemoglobin 10.8 g/dl (14.0-18.0); Imm Gran Abs Auto 0.02 X10*3/uL (0.00-0.03); Imm Gran Pct Auto 0.3 % (0.0-0.4); Lymphocytes Absolute Auto 0.3 X10*3/uL (1.2-4.9); Lymphocytes Percent Auto 4.6 % (20-40); MANUAL DIFF FLAG SCAN; Mean Corpuscular HGB Conc 31.9 g/dl (31.0-36.0); Mean Corpuscular Hemoglobin 30.3 pg (27.0-33.0); Mean Platelet Volume 12.2 fL (9.4-12.4); Monocytes Absolute Auto 0.2 X10*3/uL (0.1-1.2); Monocytes Percent Auto 2.6 % (2-11); Neutrophils Absolute Auto 5.4 x10*3/uL (2.0-8.3); Neutrophils Percent Auto 92.5 % (45-73); Platelet Count 139 X10*3/uL (160-400); Red Blood Count 3.57 X10*6/uL (4.60-5.80); Red Cell Distribution Width 14.7 % (11.0-16.0); SCAN SMEAR FLAG 1; White Blood Count 5.8 X10*3/uL (4.8-10.8)
[2024-02-21 23:07] LABS: Alanine Aminotransferase 48 U/L (0-40); Albumin Level 3.7 g/dL (3.5-5.0); Alkaline Phosphatase 320 U/L (39-117); Anion Gap 18 (12-20); Aspartate Amino Transferase 42 U/L (5-37); Bilirubin Total 1.3 mg/dL (0.0-1.0); Blood Urea Nitrogen 45 mg/dL (9-16); Calcium 9.5 mg/dL (8.4-10.2); Carbon Dioxide 25 mmol/L (22-29); Chloride 102 mmol/L (96-108); Creatinine Clr Calc Pharmacy 19.8; Estimated Glomerular Filt Rate 19; Glucose Random 162 mg/dL (60-115); Potassium 4.4 mmol/L (3.3-5.1); Sodium 141 mmol/L (135-145); Total Protein 6.8 g/dL (6.5-8.0)
[2024-02-21 23:10] LABS: B Type Natriuretic Peptide 3067 pg/mL (<100)
[2024-02-21 23:12] LABS: SLIDE REVIEW VERIFIED
[2024-02-22] VITALS (15 sets, daily range): BP systolic 107–155; BP diastolic 48–70; PULSE 55–104; RESP 8–25; TEMP 35.9–37.2; O2SAT 91–99
[2024-02-22] MEDS: Bumetanide 1 MG/4 ML VIAL IVPUSH (00:57)
--- NOTE | 2024-02-22 01:57 | P.HPHOSP_ITS ---
History of Present Illness Date of Service: 02/22/24 Chief Complaint: shortness of breath and fatigue 84 year old male with CAD s/p NSTEMI, cardiomyopathy s/p AICD in august 2020 at that time EF was 10 to 15%, most recent EF from december 2022 is 30 to 35 %, he has CKD baseline creatine around 2, chronic AFIB oncoumadin, HLD and COPD. He presents with weakness and progressive shortness of breath for weakness, has noted increased leg edema, PND, orthopnea and fatigue. He saw his PCP yesterday and was told he has PNA and directed to the ED for further eval. Work up in ED with CXR show pulmonary vascular congestion, BNP 3067, and Creatine is 3.08. Given Bumex IV 1 mg and Lasix IV 40 mg Review of Systems 2 Review of Systems: Gen: no fever Resp: +sob, no cough CV: no chest, + CHACON, + leg edema GI: No n/v, no abd pain Neuro: No confusion, generalized fatigue Yes all other systems are reviewed and are negative [facility] Medical History Atherosclerotic cardiovascular disease Fatigue High triglycerides Erectile dysfunction Typical atrial flutter Nonischemic cardiomyopathy Hearing loss COPD (chronic obstructive pulmonary disease) Chronic a-fib Atrial fibrillation Elevated blood sugar Asthma Hyperlipidemia HTN (hypertension) Stroke Family History Father Unknown family medical history Mother Unknown family medical history Surgical History Presence of single chamber implantable cardioverter-defibrillator (ICD) History of appendectomy History of tonsillectomy Social History Household Members: None Housing: Apartment Are you a primary customer care agent to a significant other at home: No Do you presently have visiting nurse or other home services: Yes ([employer]) Alcohol intake: current Alcohol intake frequency: holidays/special occasions only Patient Tobacco Use Status: Current everyday Tobacco user Cigarettes Per Day: 1 Years Smoked: 70 +/- e-Cigarette/Vaping Use: Never Used Second Hand Smoke Exposure: No Advance Directives Date on File: 08/18/20 service: No Current occupational status: retired Cognitive needs: No Hearing needs: No Vision needs: No Meds Allergies Allergy/AdvReac Type Severity Reaction Status Date / Time lisinopril Allergy Intermediate Rash Verified 03/03/24 15:58 Home Medications ?Medication ?Instructions ?Recorded ?Confirmed ?Last Taken ?Type metoprolol succinate 25 mg 25 mg PO DAILY 02/22/24 03/03/24 02/21/24 History tablet,extended release 24 hr sildenafil 100 mg tablet 100 mg PO DIRECTED PRN Sexual 02/22/24 03/03/24 Unknown History Activity trazodone 100 mg tablet 100 mg PO BEDTIME PRN Sleep 02/22/24 03/03/24 Unknown History warfarin 2 mg tablet 1 mg PO SUMOWETHFR@1800 02/22/24 03/03/24 02/21/24 History warfarin 2 mg tablet 2 mg PO TUSA@1800 02/22/24 03/03/24 02/19/24 History Physical Exam 2 Vital Signs and Narrative: Vital Signs: Last Vital Signs Temp 98.4 F 02/22/24 00:51 Pulse 57 02/22/24 00:51 Resp 15 02/22/24 00:51 BP 108/55 L 02/22/24 00:57 Pulse Ox 98 02/22/24 00:51 O2 Del Method Room Air 02/22/24 00:51 BMI result Body Mass Index 32.5 General: AO X 3, no acute distress Resp: rales at bases CVS: S1,S2,RRR, 2+pitting edema GI: +BS, NT, no distention Skin: No rash Neuro: motor grossly intact Psych: appropriate affect Results Labs 02/25/24 06:57 02/26/24 10:59 Labs: Laboratory Results - last 24 hr 02/21/24 22:45 MCV 95.0 MCH 30.3 MCHC 31.9 RDW 14.7 Plt Count 139 L MPV 12.2 Immature Gran % (Auto) 0.3 Neut % (Auto) 92.5 H Lymph % (Auto) 4.6 L [place] % (Auto) 2.6 Eos % (Auto) 0.0 Baso % (Auto) 0.0 Lymph # (Auto) 0.3 L [place] # (Auto) 0.2 Eos # (Auto) 0.0 Baso # (Auto) 0.0 Abs Immat Gran (auto) 0.02 Absolute Neuts (auto) 5.4 Absolute Nucleated RBC 0.000 Nucleated RBC % (auto) 0.0 Smear Tech's Comments VERIFIED Anion Gap 18 Estim Creat Clear Calc 19.8 Estimated GFR 19 Random Glucose 162 H Calcium 9.5 Total Bilirubin 1.3 H AST 42 H ALT 48 H Alkaline Phosphatase 320 H Troponin I High Sens 19.0 D B-Natriuretic Peptide 3067 H Total Protein 6.8 Albumin 3.7 Assessment and Plan (1) Acute kidney injury superimposed on chronic kidney disease: Status: Resolved (2) Acute HFrEF (heart failure with reduced ejection fraction): Status: Resolved Plan 84/m with CAD, ischemic cardiomyopathy s/p AICD EF 30 to 35, CKD3, HTN, HLD, chronic Aflib here with CHF exacerbation, YUMIKO d/t cardiorenal syndrome Acute on chronic HFrEF, unclear precipitant -IV diuretics -measure I/O, daily weight -follow BNP and BMP -Cardiology consult -get an echocardiogram -low salt diet YUMIKO d/t cardiorenal synrome, expected to improve with diuresis -Nephrology consult for guidance Chronic AFIB--rate/rythm control -resume amio and toprol per med rec -coumadin with INR goal 2 to 3 HLD -Lipitor HTN--he stopped taking Lisinopril in January due to associated rash -continue toprolol as above Diabetes--not on meds -ssi and POC check COPD, no exacerbation -resume home inhalers DVT prophylaxis--heparin Full code admission for acute heart failure needing IV diuretics and frequent electrolytes check Quality Stroke Does the patient have a stroke diagnosis?: No VTE Prior VTE?: No VTE Risk Level:: Medical - moderate - high VTE Device Contraindication: Treatment Not Indicated VTE Drug Contraindication: N/A - Med Ordered
[2024-02-22 04:45] LABS: INTERNATIONAL NORM RATIO 3.1 (0.9-1.1); Prothrombin Time 37.2 SEC (11.1-13.3)
[2024-02-22 04:56] LABS: Anion Gap 17 (12-20); Blood Urea Nitrogen 48 mg/dL (9-16); Calcium 9.2 mg/dL (8.4-10.2); Carbon Dioxide 26 mmol/L (22-29); Chloride 102 mmol/L (96-108); Creatinine Clr Calc Pharmacy 18.9; Estimated Glomerular Filt Rate 18; Glucose Random 164 mg/dL (60-115); Potassium 4.2 mmol/L (3.3-5.1); Sodium 141 mmol/L (135-145)
[2024-02-22] MEDS: Furosemide 200 MG in 0.9 % Sodium Chloride 80 ML IVCONT (06:30)
--- NOTE | 2024-02-22 07:00 | CA_ITS ---
Transthoracic Echocardiogram Patient (Last, First, Middle): Eder Farah, Gender: Male Date of : 1940 Age: 84 Procedure Date: 02/22/2024 Procedure Type: Transthoracic Echocardiogram Location: ER Height: 170.18 cm Weight: 93.9 kg BSA: 2.05 m2 Heart Rate: 57 bpm BP: 107 / 48 mmHg Apparel Designer: Referring MD: Justin Holt MD Symptoms: heart failure Study Quality: Adequate ECG Rhythm: Bradycardia Conclusions: - Normal left ventricular cavity size. There is normal left ventricular wall thickness. The left ventricular systolic function is severely decreased. The visually estimated ejection fraction is between 15-20%. - Elevated filling pressures. - Mildly increased right ventricular cavity size. There is mild to moderately decreased right ventricular systolic function. There is an ICD wire seen in the right ventricle. - The left atrium is severely dilated. Findings Left Ventricle Normal left ventricular cavity size. There is normal left ventricular wall thickness. The left ventricular systolic function is severely decreased. The visually estimated ejection fraction is between 15-20%. There is severe global hypokinesis. Abnormal diastolic function is noted. Spectral Doppler is indicative of a restrictive filling pattern. Elevated filling pressures. Right Ventricle Mildly increased right ventricular cavity size. There is mild to moderately decreased right ventricular systolic function. There is an ICD wire seen in the right ventricle. Atria The left atrium is severely dilated. Aortic Valve There is a normal trileaflet aortic valve. There is moderate calcification of the aortic valve. There is mild aortic valve stenosis. There is trace (trivial) aortic valve regurgitation. Mitral Valve There is trace mitral valve regurgitation. There is no mitral valve stenosis. Apical tethering of the mitral valve leaflets. Pulmonic Valve The pulmonic valve is likely normal. Tricuspid Valve Normal tricuspid valve structure. There is moderate tricuspid valve regurgitation. Significantly elevated right atrial pressure. Moderate pulmonary hypertension is present. Great Vessels All visible segments of the aorta are normal in size. Venous The inferior vena cava is dilated and does not collapse with inspiration. Pericardium/Pleural There is no evidence of pericardial effusion. Prior Study Comparison Changes noted compared to prior study dated: 12/18/2022. EF 10-15% Measurements 2D Linear Measurements RVIDd: 3.66 RVIDd Index: 1.79 IVSd: 0.92 0.6-0.9/0.6-1.0 cm LVIDd: 5.70 3.9-5.3/4.2-5.9 cm LVIDd Index: 2.78 2.4-3.2/2.2-3.1 cm/m2 LVIDs: 4.77 2.0-3.6 cm LVPWd: 1.00 0.7-1.1 cm LA Diam: 6.20 2.7-3.8/3.0-4.0 cm LAIDs Index: 3.02 1.5-2.3 cm/m2 LV Mass: 267.91 67-162/88-224 g LV Mass Index: 130.69 43-95/49-115 g/m2 LVOT Diam: 2.20 3.0+(-)1.3 cm 2D Systolic Function EF 4C: 26.00 >55% EF 2C: 11.70 >55% EF BiP: 21.90 >55% Mitral Valve MV Pk E: 1.01 MV Decel Time: 127.00 E'Lateral: 8.16 E'Medial: 4.46 E/E' Med: 22.60 E/E' Lat: 12.40 PHT: 37.00 MVA PHT: 5.95 Decel Maries: 7.97 Aortic Valve AoV Pk Hieu: 2.06 AoV Mn Hieu: 1.19 AoV VTI: 0.46 AoV Pk Grad: 17.00 Aov Mn Grad: 7.00 QUAN Cont.VTI: 1.48 LVOT LVOT Pk Hieu: 0.78 LVOT Mn Hieu: 0.48 LVOT VTI: 0.18 LVOT Pk Grad: 2.00 LVOT Mn Grad: 1.00 LVOT Diam: 2.20 LVOT Area: 3.80 Diastolic Function MV Pk E: 1.01 E'Medial: 4.46 E/E' Med: 22.60 E' Laterial: 8.16 E/E' Lat: 12.40 Right Ventricle TAPSE (mm): 17.50 Tricuspid Valve TR Pk Hieu: 3.15 TR Pk Grad: 40.00 RA Press: 15.00 RVSP: 55.00 Great Vessels Aorta Sinus of Valsalva: 2.50 2.0-3.5 cm Pulmonary Valve PV Pk Hieu: 0.79 Peak PV Grad: 2.00 Updated in Other Vendor System with Status of Final Bubba Mccullough MD electronically signed on 02/22/2024 2:46:26 PM with status of Final
[2024-02-22 07:18] LABS: Glucose, Whole Blood 146 mg/dL (60-115)
--- NOTE | 2024-02-22 09:54 | PC.NURSE ---
ok to hold metoprolol per Dr. Jerry this AM for BP soft 116/50 and HR 55
[2024-02-22] MEDS: Amiodarone HCL 200 MG TABLET PO (10:11)
--- NOTE | 2024-02-22 10:18 | PHA.MEDREC ---
Addendum entered by Marylin Bradshaw RPh 02/22/24 11:10: Med rec reviewed by this [facility]. INR at 3.1, per Rosalino will hold dose tonight Original Note: Pharmacy Consult ? Medication Reconciliation Pharmacy has completed the medication reconciliation. Spoke to patient and confirmed medications with him verbally and with stock bottles he has with him. Patient states he started a Doxycycline 100mg cap 1 BID for 7 days yesterday along with a Prednisone 50mg regimen 1 daily for 5 days. He also confirmed and wrote down how he takes his Warfarin 2mg dose at home and he confirmed he is doing a 1/2 (1mg) on Sundays, Mondays, Wednesdays, and Fridays and takes 1 tablet (2mg) on Tuesdays and Saturdays. Also the patient states he has not been taking his Lisionpril 5mg tab in over a month due to the pateint starting to get hives, nausea and not feeling great the first time he took this and states about a week after stopping it the patient states he felt more back to normal . He states he took all his medications yesterday.
--- NOTE | 2024-02-22 10:50 | HO.PM.IMPN ---
Subjective Subjective Date of Service: 02/22/24 Interval History: sob Physical Exam Vital Signs: Vital Signs: Last Vital Signs Temp 98.9 F 02/22/24 06:24 Pulse 55 02/22/24 09:50 Resp 16 02/22/24 09:50 BP 116/50 L 02/22/24 09:50 Pulse Ox 94 02/22/24 09:51 O2 Del Method Nasal Cannula 02/22/24 09:51 O2 Flow Rate 2 02/22/24 09:51 BMI result Body Mass Index 32.5 General: AO X 3, no acute distress Resp: CTA bilateral, no accessory muscles used CVS: S1,S2,RRR GI: soft, non tender, non distended Neuro: motor grossly intact, alert Psych: appropriate affect, appropriate insight Objective Data Active Medications Acetaminophen (Acetaminophen 325 Mg Tablet) 650 mg PO Q6H PRN PRN Reason: Pain, Mild (Pain Scale 1-3), fever or headache Al Hydroxide/Mg Hydroxide (Magnesium Hydrox/Alum Hydrox 30 Ml Oral.Susp) 30 ml PO Q4H PRN PRN Reason: Heartburn Amiodarone HCl (Amiodarone Hcl 200 Mg Tablet) 200 mg PO DAILY [facility] Last Admin: 02/22/24 10:11 Dose: 200 mg Documented By: ZARA Calcium Carbonate (Calcium Carbonate 750 Mg Tab.Chew) 750 mg PO Q4H PRN PRN Reason: Heartburn Furosemide 200 mg/ Sodium (Chloride) 100 mls @ 5 mls/hr IVCONT .Q20H [facility] Last Admin: 02/22/24 06:30 Dose: 5 mg/hr, 2.5 mls/hr Documented By: BETTY Magnesium Hydroxide (Milk Of Magnesia 30 Ml Oral.Susp) 30 ml PO DAILY PRN PRN Reason: Constipation Melatonin (Melatonin 3 Mg Tablet) 6 mg PO BEDTIME PRN PRN Reason: Insomnia Metoprolol Succinate (Metoprolol Succinate Er 25 Mg Tab.Er.24h) 25 mg PO DAILY [facility]; Protocol Last Admin: 02/22/24 09:54 Dose: Not Given Documented By: ZARA Non-Admin Reason: See Note Ondansetron HCl (Ondansetron Hcl 4 Mg/2 Ml Vial) 4 mg IVPUSH Q8H PRN PRN Reason: Nausea and Vomiting Sodium Chloride (0.9 % Sodium Chloride Flush 3 Ml Syringe) 3 ml IVFLUSH QSHIFT [facility] Last Admin: 02/22/24 09:15 Dose: Not Given Documented By: ZARA Non-Admin Reason: IV Running Warfarin Sodium (Warfarin Sodium 2 Mg Tablet) 2 mg PO DAILY@1800 [facility] Labs 02/21/24 22:45 02/22/24 04:25 Labs: Laboratory Results - last 24 hr 02/21/24 02/22/24 02/22/24 22:45 04:25 07:12 MCV 95.0 MCH 30.3 MCHC 31.9 RDW 14.7 Plt Count 139 L MPV 12.2 Immature Gran % (Auto) 0.3 Neut % (Auto) 92.5 H Lymph % (Auto) 4.6 L [place] % (Auto) 2.6 Eos % (Auto) 0.0 Baso % (Auto) 0.0 Lymph # (Auto) 0.3 L [place] # (Auto) 0.2 Eos # (Auto) 0.0 Baso # (Auto) 0.0 Abs Immat Gran (auto) 0.02 Absolute Neuts (auto) 5.4 Absolute Nucleated RBC 0.000 Nucleated RBC % (auto) 0.0 Smear Tech's Comments VERIFIED PT 37.2 H INR 3.1 H Anion Gap 18 17 Estim Creat Clear Calc 19.8 18.9 Estimated GFR 19 18 POC Glucose 146 H Random Glucose 162 H 164 H Calcium 9.5 9.2 Total Bilirubin 1.3 H AST 42 H ALT 48 H Alkaline Phosphatase 320 H Troponin I High Sens 19.0 D B-Natriuretic Peptide 3067 H Total Protein 6.8 Albumin 3.7 Assessment and Plan (1) Acute HFrEF (heart failure with reduced ejection fraction): Status: Acute Plan 84M PMH coronary artery disease, ischemic cardiomyopathy status post AICD with EF of 30-35%, CKD 3, hypertension, hyperlipidemia, chronic atrial fibrillation, presented with shortness of breath Acute on chronic systolic CHF Increase Lasix drip to 10 mg/hr Cardiology eval, follow up echo YUMIKO on CKD 3 Suspect cardiorenal, monitor while on diuresis Chronic atrial fibrillation Amiodarone, Toprol, warfarin Diabetes Insulin sliding scale COPD stable, conitnue inhalers dvt prophylaxis - coumadin full code reason for continued hospitalization: iv diuresis Quality Stroke Does the patient have a stroke diagnosis?: No VTE Prior VTE?: No VTE Risk Level:: Medical - moderate - high VTE Device Contraindication: Treatment Not Indicated VTE Drug Contraindication: N/A - Med Ordered
--- NOTE | 2024-02-22 11:01 | P.CONNP_ITS ---
History of Present Illness Reason for Consult Consult date: 02/22/24 Reason for consult: YUMIKO Chief Complaint Chief complaint: Acute Heart Failure, YUMIKO History of Present Illness Narrative: 84 year old male with CKD who follows up with me in the office who also has CAD s/p NSTEMI, cardiomyopathy s/p AICD in august 2020 at that time EF was 10 to 15%, most recent EF from december 2022 is 30 to 35 % presented with weakness and progressive shortness of breath. He has noted increased leg edema, PND, orthopnea and fatigue. Work up in ED with CXR show pulmonary vascular congestion, BNP 3067, and Creatine is 3.08. Was admitted for further management. Nephrology has been consulted to assist in his clinical care during his current hospital stay Review of Systems Review of Systems Yes all other systems are reviewed and are negative [facility] Past Medical History Medical History Atherosclerotic cardiovascular disease Fatigue High triglycerides Erectile dysfunction Typical atrial flutter Nonischemic cardiomyopathy Hearing loss COPD (chronic obstructive pulmonary disease) Chronic a-fib Atrial fibrillation Elevated blood sugar Asthma Hyperlipidemia HTN (hypertension) Stroke Family History Family History Father Unknown family medical history Mother Unknown family medical history Surgical History Surgical History Presence of single chamber implantable cardioverter-defibrillator (ICD) History of appendectomy History of tonsillectomy Social History Social History Household Members: None Housing: Apartment Are you a primary child daycare worker to a significant other at home: No Do you presently have visiting nurse or other home services: No Alcohol intake: current Alcohol intake frequency: holidays/special occasions only Patient Tobacco Use Status: Never used Tobacco Cigarettes Per Day: 4 Years Smoked: 70 +/- Smoked in Last 30 Days: No e-Cigarette/Vaping Use: Never Used Second Hand Smoke Exposure: No Use of substances other than those prescribed or required for medical reasons: No Advance Directives: Yes Advance Directives on File: Yes Advance Directives Date on File: 08/18/20 Do you have a plan to hurt others: No Plan Nutrition Risks: No Nutritional Risk service: No Current occupational status: retired Cognitive needs: No Hearing needs: No Vision needs: No Meds Allergies Allergy/AdvReac Type Severity Reaction Status Date / Time lisinopril Allergy Intermediate Rash Verified 02/21/24 22:12 Active Medications: Current Medications Acetaminophen (Acetaminophen 325 Mg Tablet) 650 mg PO Q6H PRN PRN Reason: Pain, Mild (Pain Scale 1-3), fever or headache Al Hydroxide/Mg Hydroxide (Magnesium Hydrox/Alum Hydrox 30 Ml Oral.Susp) 30 ml PO Q4H PRN PRN Reason: Heartburn Albuterol Sulfate (Albuterol Sulfate 90 Mcg 8 Gm Inhaler) 2 puff INHALE Q6H PRN PRN Reason: Shortness Of Breath Amiodarone HCl (Amiodarone Hcl 200 Mg Tablet) 200 mg PO DAILY [facility] Last Admin: 02/22/24 10:11 Dose: 200 mg Atorvastatin Calcium (Atorvastatin Calcium 40 Mg Tablet) 40 mg PO DAILY [facility] Calcium Carbonate (Calcium Carbonate 750 Mg Tab.Chew) 750 mg PO Q4H PRN PRN Reason: Heartburn Fluticasone/Vilanterol (Fluticasone/Vilanterol 100/25 Blst.W.Dev) puff INHALE DAILY [facility] Furosemide 200 mg/ Sodium (Chloride) 100 mls @ 5 mls/hr IVCONT .Q20H [facility] Last Admin: 02/22/24 06:30 Dose: 5 mg/hr, 2.5 mls/hr Magnesium Hydroxide (Milk Of Magnesia 30 Ml Oral.Susp) 30 ml PO DAILY PRN PRN Reason: Constipation Melatonin (Melatonin 3 Mg Tablet) 6 mg PO BEDTIME PRN PRN Reason: Insomnia Metoprolol Succinate (Metoprolol Succinate Er 25 Mg Tab.Er.24h) 25 mg PO DAILY [facility]; Protocol Last Admin: 02/22/24 09:54 Dose: Not Given Ondansetron HCl (Ondansetron Hcl 4 Mg/2 Ml Vial) 4 mg IVPUSH Q8H PRN PRN Reason: Nausea and Vomiting Sodium Chloride (0.9 % Sodium Chloride Flush 3 Ml Syringe) 3 ml IVFLUSH QSHIFT [facility] Last Admin: 02/22/24 09:15 Dose: Not Given Trazodone HCl (Trazodone Hcl 100 Mg Tablet) 100 mg PO BEDTIME PRN PRN Reason: Sleep Warfarin Sodium (Warfarin Sodium 2 Mg Tablet) 2 mg PO DAILY@1800 [facility] Home Medications ?Medication ?Instructions ?Recorded ?Confirmed ?Last Taken ?Type metoprolol succinate 25 mg 25 mg PO DAILY 02/22/24 02/22/24 02/21/24 History tablet,extended release 24 hr sildenafil 100 mg tablet 100 mg PO DIRECTED PRN Sexual 02/22/24 02/22/24 Unknown History Activity trazodone 100 mg tablet 100 mg PO BEDTIME PRN Sleep 02/22/24 02/22/24 Unknown History warfarin 2 mg tablet 1 mg PO SUMOWETHFR@1800 02/22/24 02/22/24 02/21/24 History warfarin 2 mg tablet 2 mg PO TUSA@1800 02/22/24 02/22/24 02/19/24 History Physical Exam Vital Signs: Last Vital Signs Temp 98.9 F 02/22/24 06:24 Pulse 55 02/22/24 09:50 Resp 16 02/22/24 09:50 BP 116/50 L 02/22/24 09:50 Pulse Ox 94 02/22/24 09:51 O2 Del Method Nasal Cannula 02/22/24 09:51 O2 Flow Rate 2 02/22/24 09:51 BMI result Body Mass Index 32.5 Const Other: SOB General: no acute distress Orientation/consciousness: patient oriented x3 HEENT Head: Yes normocephalic Eyes EOM: EOMs intact bilaterally Neck Neck: Yes supple Resp Auscultation: diminished lung sounds Cardio Rate: regular rate GI Palpation (GI): Soft to palpation Neuro General: patient oriented x3 Extrem General: Yes edema Results Lab Results 02/21/24 22:45 02/22/24 04:25 Lab results: Chemistry 02/21/24 02/22/24 22:45 04:25 Sodium 141 141 Potassium 4.4 4.2 Carbon Dioxide 25 26 BUN 45 H 48 H Creatinine 3.08 H 3.23 H Calcium 9.5 9.2 Hematology 02/21/24 22:45 WBC 5.8 Hgb 10.8 L Plt Count 139 L Assessment and Plan (1) Acute kidney injury superimposed on chronic kidney disease: Status: Acute Plan YUMIKO on CKD due to cardio renal syndrome Start lasix drip 10 mg/ hour Would add Imdur 30 mg daily Baseline serum creatinine around 2 No reason to suspect GN/AIN/obstruction 2 Gram Na restriction/ Daily weights ECHO; Labs AM; Shall closely F/U Procedures Date of Service Date of Service: 02/22/24
--- NOTE | 2024-02-22 11:58 | PM.CNCAR ---
History of Present Illness History of Present Illness Date of Service: 02/22/24 Chief complaint: Acute Heart Failure, YUMIKO Narrative: Pleasant 84-year-old gentleman who has known history of nonischemic cardiomyopathy with previous ICD placement. He had longstanding atrial flutter and after that her atrial fibrillation but with amiodarone he reverted to sinus rhythm. More recently he was complaining of shortness of breath in his Lasix dose was increased to 40 mg twice a day. He said he continued to develop worsening shortness of breath and eventually came to the emergency department where he was noticed to be in heart failure. He has been on supplemental oxygen and Lasix drip. He is saying he is making more urine and was not urinating much at home. Denying any chest discomfort. He has been experiencing orthopnea at home. [facility] Past Medical History Medical History Atherosclerotic cardiovascular disease Fatigue High triglycerides Erectile dysfunction Typical atrial flutter Nonischemic cardiomyopathy Hearing loss COPD (chronic obstructive pulmonary disease) Chronic a-fib Atrial fibrillation Elevated blood sugar Asthma Hyperlipidemia HTN (hypertension) Stroke Family History Family History Father Unknown family medical history Mother Unknown family medical history Surgical History Surgical History Presence of single chamber implantable cardioverter-defibrillator (ICD) History of appendectomy History of tonsillectomy Social History Social History Household Members: None Housing: Apartment Are you a primary healthcare interpreter to a significant other at home: No Do you presently have visiting nurse or other home services: No Alcohol intake: current Alcohol intake frequency: holidays/special occasions only Patient Tobacco Use Status: Never used Tobacco Cigarettes Per Day: 4 Years Smoked: 70 +/- Smoked in Last 30 Days: No e-Cigarette/Vaping Use: Never Used Second Hand Smoke Exposure: No Use of substances other than those prescribed or required for medical reasons: No Advance Directives: Yes Advance Directives on File: Yes Advance Directives Date on File: 08/18/20 Do you have a plan to hurt others: No Plan Nutrition Risks: No Nutritional Risk service: No Current occupational status: retired Cognitive needs: No Hearing needs: No Vision needs: No Meds Allergies Allergy/AdvReac Type Severity Reaction Status Date / Time lisinopril Allergy Intermediate Rash Verified 02/21/24 22:12 Active Medications: Current Medications Acetaminophen (Acetaminophen 325 Mg Tablet) 650 mg PO Q6H PRN PRN Reason: Pain, Mild (Pain Scale 1-3), fever or headache Al Hydroxide/Mg Hydroxide (Magnesium Hydrox/Alum Hydrox 30 Ml Oral.Susp) 30 ml PO Q4H PRN PRN Reason: Heartburn Albuterol Sulfate (Albuterol Sulfate 90 Mcg 8 Gm Inhaler) 2 puff INHALE Q6H PRN PRN Reason: Shortness Of Breath Amiodarone HCl (Amiodarone Hcl 200 Mg Tablet) 200 mg PO DAILY [facility] Last Admin: 02/22/24 10:11 Dose: 200 mg Atorvastatin Calcium (Atorvastatin Calcium 40 Mg Tablet) 40 mg PO DAILY [facility] Calcium Carbonate (Calcium Carbonate 750 Mg Tab.Chew) 750 mg PO Q4H PRN PRN Reason: Heartburn Fluticasone/Vilanterol (Fluticasone/Vilanterol 100/25 Blst.W.Dev) 1 puff INHALE DAILY [facility] Furosemide 200 mg/ Sodium (Chloride) 100 mls @ 5 mls/hr IVCONT .Q20H [facility] Last Admin: 02/22/24 06:30 Dose: 5 mg/hr, 2.5 mls/hr Magnesium Hydroxide (Milk Of Magnesia 30 Ml Oral.Susp) 30 ml PO DAILY PRN PRN Reason: Constipation Melatonin (Melatonin 3 Mg Tablet) 6 mg PO BEDTIME PRN PRN Reason: Insomnia Metoprolol Succinate (Metoprolol Succinate Er 25 Mg Tab.Er.24h) 25 mg PO DAILY [facility]; Protocol Last Admin: 02/22/24 09:54 Dose: Not Given Ondansetron HCl (Ondansetron Hcl 4 Mg/2 Ml Vial) 4 mg IVPUSH Q8H PRN PRN Reason: Nausea and Vomiting Sodium Chloride (0.9 % Sodium Chloride Flush 3 Ml Syringe) 3 ml IVFLUSH QSHIFT [facility] Last Admin: 02/22/24 09:15 Dose: Not Given Trazodone HCl (Trazodone Hcl 100 Mg Tablet) 100 mg PO BEDTIME PRN PRN Reason: Sleep Warfarin Sodium (Warfarin Sodium 2 Mg Tablet) 2 mg PO TUSA@1800 [facility] Warfarin Sodium (Warfarin Sodium 1 Mg Tablet) 1 mg PO SUMOWETHFR@1800 [facility] Home Medications ?Medication ?Instructions ?Recorded ?Confirmed ?Last Taken ?Type metoprolol succinate 25 mg 25 mg PO DAILY 02/22/24 02/22/24 02/21/24 History tablet,extended release 24 hr sildenafil 100 mg tablet 100 mg PO DIRECTED PRN Sexual 02/22/24 02/22/24 Unknown History Activity trazodone 100 mg tablet 100 mg PO BEDTIME PRN Sleep 02/22/24 02/22/24 Unknown History warfarin 2 mg tablet 1 mg PO SUMOWETHFR@1800 02/22/24 02/22/24 02/21/24 History warfarin 2 mg tablet 2 mg PO TUSA@1800 02/22/24 02/22/24 02/19/24 History Physical Exam Vital Signs: Vital Signs: Last Vital Signs Temp 98.9 F 02/22/24 06:24 Pulse 55 02/22/24 09:50 Resp 16 02/22/24 09:50 BP 116/50 L 02/22/24 09:50 Pulse Ox 94 02/22/24 09:51 O2 Del Method Nasal Cannula 02/22/24 09:51 O2 Flow Rate 2 02/22/24 09:51 BMI result Body Mass Index 32.5 GENERAL APPEARANCE: in no acute distress, on supplemental oxygen NECK: no carotid bruit, + jugular venous distention. SKIN: no suspicious lesions, warm and dry. HEART: no murmurs, regular rate and rhythm. LUNGS: Few wheezes bilaterally. No crackles. ABDOMEN: soft, nontender. EXTREMITIES: no edema. PERIPHERAL PULSES: equal. NEUROLOGIC: No gross deficits, AAO X 3 Objective Labs and Meds 02/21/24 22:45 02/22/24 04:25 Lab results: Laboratory Results - last 24 hr 02/21/24 02/22/24 02/22/24 22:45 04:25 07:12 WBC 5.8 RBC 3.57 L Hgb 10.8 L Hct 33.9 L MCV 95.0 MCH 30.3 MCHC 31.9 RDW 14.7 Plt Count 139 L MPV 12.2 Immature Gran % (Auto) 0.3 Neut % (Auto) 92.5 H Lymph % (Auto) 4.6 L [place] % (Auto) 2.6 Eos % (Auto) 0.0 Baso % (Auto) 0.0 Lymph # (Auto) 0.3 L [place] # (Auto) 0.2 Eos # (Auto) 0.0 Baso # (Auto) 0.0 Abs Immat Gran (auto) 0.02 Absolute Neuts (auto) 5.4 Absolute Nucleated RBC 0.000 Nucleated RBC % (auto) 0.0 Smear Tech's Comments VERIFIED PT 37.2 H INR 3.1 H Sodium 141 141 Potassium 4.4 4.2 Chloride 102 102 Carbon Dioxide 25 26 Anion Gap 18 17 BUN 45 H 48 H Creatinine 3.08 H 3.23 H Estim Creat Clear Calc 19.8 18.9 Estimated GFR 19 18 POC Glucose 146 H Random Glucose 162 H 164 H Calcium 9.5 9.2 Total Bilirubin 1.3 H AST 42 H ALT 48 H Alkaline Phosphatase 320 H Troponin I High Sens 19.0 D B-Natriuretic Peptide 3067 H Total Protein 6.8 Albumin 3.7 Assessment and Plan (1) Acute HFrEF (heart failure with reduced ejection fraction): Status: Acute Plan [age] gentleman with acute on chronic congestive heart failure. He has known history of cardiomyopathy with [id number] LV dysfunction. This was nonischemic cardiomyopathy. He had longstanding atrial flutter and atrial fibrillation which have improved at this stage and he is in sinus rhythm with amiodarone. Clinically volume overloaded. Agree with IV diuretics for now. He has not tolerated medications due to side effects in the past and also had affordability issues and is currently not on Entresto. He also has kidney injury at this stage and I would avoid adding any spironolactone. Lisinopril should be held for now. Starting him on Jardiance 10 mg daily. We will get echocardiography and reassess ejection fraction and LV function. Thank you for allowing me to participate in the care of your patient. Please feel free to contact me if you have any questions. Procedures Date of Service Date of Service: 02/22/24
[2024-02-22 13:13] LABS: Glucose, Whole Blood 162 mg/dL (60-115)
[2024-02-22] MEDS: Empagliflozin 10 MG TABLET PO (13:13)
--- NOTE | 2024-02-22 15:21 | PC.NURSE ---
This RN went with patient to IR for chest tube placement at 1445, this RN monitored throughout, pt tolerated well, vitals documented in flowsheet from [id number] were from procedure. Pt increased on O2 from 2L to 3.5L d/t 92% sat. Chest tube placed, 500cc bloody fluid in atrium at this time post procedure. Pt brought back to room, pt hooked to suction, IR provider okay transport not on suction
[2024-02-22] MEDS: hydrALAZINE HCl 25 MG TABLET PO (23:13)
[2024-02-23] VITALS (7 sets, daily range): BP systolic 123–168; BP diastolic 60–77; PULSE 59–63; RESP 16–23; TEMP 36.3–37.2; O2SAT 93–99
[2024-02-23] MEDS: Furosemide 200 MG in 0.9 % Sodium Chloride 80 ML IVCONT ×2 (03:38→21:21)
[2024-02-23 06:54] LABS: INTERNATIONAL NORM RATIO 2.8 (0.9-1.1); Prothrombin Time 33.5 SEC (11.1-13.3)
[2024-02-23 06:55] LABS: Anion Gap 19 (12-20); Blood Urea Nitrogen 60 mg/dL (9-16); Calcium 9.3 mg/dL (8.4-10.2); Carbon Dioxide 24 mmol/L (22-29); Chloride 101 mmol/L (96-108); Creatinine Clr Calc Pharmacy 19.8; Estimated Glomerular Filt Rate 19; Glucose Random 109 mg/dL (60-115); Sodium 140 mmol/L (135-145)
[2024-02-23 06:58] LABS: B Type Natriuretic Peptide 2948 pg/mL (<100)
[2024-02-23] MEDS: Metoprolol Succinate ER 25 MG TAB.ER.24H PO (09:13)
[2024-02-23] MEDS: Amiodarone HCL 200 MG TABLET PO (09:13)
[2024-02-23] MEDS: Atorvastatin Calcium 40 MG TABLET PO (09:13)
[2024-02-23] MEDS: Empagliflozin 10 MG TABLET PO (09:13)
[2024-02-23] MEDS: hydrALAZINE HCl 25 MG TABLET PO ×3 (09:13→21:29)
[2024-02-23] MEDS: Isosorbide Mononitrate 30 MG TAB.ER.24H PO (10:04)
--- NOTE | 2024-02-23 11:07 | PM.PNCARD ---
Subjective Subjective Date of Service: 02/23/24 Interval history: Feeling better compared to yesterday. On Lasix drip 10 milligram/hour. ECHO has shown worsening ejection fraction with EF 15 20%. Physical Exam Vital Signs: Last Vital Signs Temp 98.6 F 02/23/24 07:29 Pulse 60 02/23/24 07:29 Resp 19 02/23/24 07:29 BP 151/65 H 02/23/24 07:29 Pulse Ox 97 02/23/24 07:29 O2 Del Method Room Air 02/23/24 07:29 O2 Flow Rate 2 02/22/24 17:36 BMI result Body Mass Index 32.5 GENERAL APPEARANCE: in no acute distress, on supplemental oxygen NECK: no carotid bruit, ++ jugular venous distention. SKIN: no suspicious lesions, warm and dry. HEART: no murmurs, regular rate and rhythm. LUNGS: No added sounds. ABDOMEN: soft, nontender. EXTREMITIES: no edema. PERIPHERAL PULSES: equal. NEUROLOGIC: No gross deficits, AAO X 3 Objective Labs and Meds 02/21/24 22:45 02/23/24 05:43 Lab results: Laboratory Results - last 24 hr 02/22/24 02/23/24 13:10 05:43 PT 33.5 H INR 2.8 H Sodium 140 Potassium 4.0 Chloride 101 Carbon Dioxide 24 Anion Gap 19 BUN 60 H Creatinine 3.08 H Estim Creat Clear Calc 19.8 Estimated GFR 19 POC Glucose 162 H Random Glucose 109 Calcium 9.3 B-Natriuretic Peptide 2948 H Progress Note: A&P Assessment and plan (1) Acute on chronic congestive heart failure: Status: Acute Plan [age] gentleman with nonischemic cardiomyopathy with previous ICD presenting with acute on chronic congestive heart failure. Significantly volume overloaded and is currently on Lasix drip. He had significant creatinine worsening on admission but creatinine overall is currently stable. He is diuresing well with 10 milligram/hour of Lasix drip. Monitor electrolytes closely so far they are stable. Added Jardiance 10 mg daily. Using hydralazine and Imdur combination currently. If creatinine improved significantly then we will consider Entresto. Beta-lindy dose should not be titrated. Thank you for allowing me to participate in the care of your patient. Please feel free to contact me if you have any questions. Time Spent With Patient Time: Total time managing care of this patient today ____ minutes. Progress Note: Quality Stroke Does the patient have a stroke diagnosis?: No Procedures Date of Service Date of Service: 02/23/24
--- NOTE | 2024-02-23 11:09 | HO.PM.IMPN ---
Subjective Subjective Date of Service: 02/23/24 Interval History: sob imrpoved Physical Exam Vital Signs: Vital Signs: Last Vital Signs Temp 98.6 F 02/23/24 07:29 Pulse 60 02/23/24 07:29 Resp 19 02/23/24 07:29 BP 151/65 H 02/23/24 07:29 Pulse Ox 97 02/23/24 07:29 O2 Del Method Room Air 02/23/24 07:29 O2 Flow Rate 2 02/22/24 17:36 BMI result Body Mass Index 32.5 GENERAL APPEARANCE: in no acute distress, on supplemental oxygen NECK: no carotid bruit, + jugular venous distention. SKIN: no suspicious lesions, warm and dry. HEART: no murmurs, regular rate and rhythm. LUNGS: Few wheezes bilaterally. No crackles. ABDOMEN: soft, nontender. EXTREMITIES: no edema. PERIPHERAL PULSES: equal. NEUROLOGIC: No gross deficits, AAO X 3 Objective Data Active Medications Acetaminophen (Acetaminophen 325 Mg Tablet) 650 mg PO Q6H PRN PRN Reason: Pain, Mild (Pain Scale 1-3), fever or headache Al Hydroxide/Mg Hydroxide (Magnesium Hydrox/Alum Hydrox 30 Ml Oral.Susp) 30 ml PO Q4H PRN PRN Reason: Heartburn Albuterol Sulfate (Albuterol Sulfate 90 Mcg 8 Gm Inhaler) 2 puff INHALE Q6H PRN PRN Reason: Shortness Of Breath Amiodarone HCl (Amiodarone Hcl 200 Mg Tablet) 200 mg PO DAILY [facility] Last Admin: 02/23/24 09:13 Dose: 200 mg Documented By: ZAIDA Atorvastatin Calcium (Atorvastatin Calcium 40 Mg Tablet) 40 mg PO DAILY [facility] Last Admin: 02/23/24 09:13 Dose: 40 mg Documented By: ZAIDA Calcium Carbonate (Calcium Carbonate 750 Mg Tab.Chew) 750 mg PO Q4H PRN PRN Reason: Heartburn Empagliflozin (Empagliflozin 10 Mg Tablet) 10 mg PO DAILY [facility] Last Admin: 02/23/24 09:13 Dose: 10 mg Documented By: ZAIDA Fluticasone/Vilanterol (Fluticasone/Vilanterol 100/25 Blst.W.Dev) 1 puff INHALE DAILY [facility] Last Admin: 02/23/24 08:18 Dose: Not Given Documented By: HO.BLASCL Non-Admin Reason: Med Not Available Hydralazine HCl (Hydralazine Hcl 25 Mg Tablet) 25 mg PO TID [facility]; Protocol Last Admin: 02/23/24 09:13 Dose: 25 mg Documented By: ZAIDA Furosemide 200 mg/ Sodium (Chloride) 100 mls @ 5 mls/hr IVCONT .Q20H [facility] Last Admin: 02/23/24 03:38 Dose: 10 mg/hr, 5 mls/hr Documented By: JANNY Isosorbide Mononitrate (Isosorbide Mononitrate 30 Mg Tab.Er.24h) 30 mg PO DAILY [facility]; Protocol Last Admin: 02/23/24 10:04 Dose: 30 mg Documented By: ZAIDA Magnesium Hydroxide (Milk Of Magnesia 30 Ml Oral.Susp) 30 ml PO DAILY PRN PRN Reason: Constipation Melatonin (Melatonin 3 Mg Tablet) 6 mg PO BEDTIME PRN PRN Reason: Insomnia Metoprolol Succinate (Metoprolol Succinate Er 25 Mg Tab.Er.24h) 25 mg PO DAILY [facility]; Protocol Last Admin: 02/23/24 09:13 Dose: 25 mg Documented By: ZAIDA Ondansetron HCl (Ondansetron Hcl 4 Mg/2 Ml Vial) 4 mg IVPUSH Q8H PRN PRN Reason: Nausea and Vomiting Sodium Chloride (0.9 % Sodium Chloride Flush 3 Ml Syringe) 3 ml IVFLUSH QSHIFT [facility] Last Admin: 02/23/24 09:14 Dose: Not Given Documented By: ZAIDA Non-Admin Reason: IV Running Trazodone HCl (Trazodone Hcl 100 Mg Tablet) 100 mg PO BEDTIME PRN PRN Reason: Sleep Warfarin Sodium (Warfarin Sodium 2 Mg Tablet) 2 mg PO TUSA@1800 [facility] Warfarin Sodium (Warfarin Sodium 1 Mg Tablet) 1 mg PO SUMOWETHFR@1800 [facility] Labs 02/21/24 22:45 02/23/24 05:43 Labs: Laboratory Results - last 24 hr 02/22/24 02/23/24 13:10 05:43 PT 33.5 H INR 2.8 H Anion Gap 19 Estim Creat Clear Calc 19.8 Estimated GFR 19 POC Glucose 162 H Random Glucose 109 Calcium 9.3 B-Natriuretic Peptide 2948 H Assessment and Plan (1) Acute HFrEF (heart failure with reduced ejection fraction): Status: Acute Plan 84M PMH coronary artery disease, ischemic cardiomyopathy status post AICD with EF of 30-35%, CKD 3, hypertension, hyperlipidemia, chronic atrial fibrillation, presented with shortness of breath Acute on chronic systolic CHF Lasix drip at 10 mg/hr Cardiology \follow up echo with worsneing EF YUMIKO on CKD 3 Suspect cardiorenal, monitor while on diuresis Chronic atrial fibrillation Amiodarone, Toprol, warfarin Diabetes Insulin sliding scale COPD stable, conitnue inhalers dvt prophylaxis - coumadin full code reason for continued hospitalization: iv diuresis Quality Stroke Does the patient have a stroke diagnosis?: No VTE Prior VTE?: No VTE Risk Level:: Medical - moderate - high VTE Device Contraindication: Treatment Not Indicated VTE Drug Contraindication: N/A - Med Ordered
--- NOTE | 2024-02-23 14:09 | MHC.CM.PN ---
IMM 02/23/24, Pt. lives alone, he has home care services from [facility] for cleaning the home, he is independent with personal care. For DME he uses a cane, he has a walker and W/C but does not use them at this time. HCP form was completed, the one on file is no longer his HCP, he completed a new one, naming: Nicolette Castillo. DCP: home with services. CM to follow for DC needs.
[2024-02-23] MEDS: 0.9 % Sodium Chloride Flush 3 ML SYRINGE IVFLUSH ×2 (15:24→21:29)
[2024-02-23] MEDS: Warfarin Sodium 2 MG TABLET PO (17:00)
[2024-02-24] VITALS (8 sets, daily range): BP systolic 96–139; BP diastolic 54–66; PULSE 55–60; RESP 15–20; TEMP 36.1–36.9; O2SAT 93–97
[2024-02-24 06:57] LABS: Hemoglobin 10.6 g/dl (14.0-18.0); Mean Corpuscular HGB Conc 33.1 g/dl (31.0-36.0); Mean Corpuscular Hemoglobin 31.1 pg (27.0-33.0); Mean Corpuscular Volume 93.8 fL (80.0-98.0); Mean Platelet Volume 13.6 fL (9.4-12.4); PLT CLUMP 1; Red Blood Count 3.41 X10*6/uL (4.60-5.80)
[2024-02-24 07:14] LABS: INTERNATIONAL NORM RATIO 2.3 (0.9-1.1); Prothrombin Time 27.6 SEC (11.1-13.3)
[2024-02-24 07:23] LABS: Platelet Count 117 X10*3/uL (160-400); White Blood Count 7.6 X10*3/uL (4.8-10.8)
[2024-02-24 07:37] LABS: Anion Gap 15 (12-20); Blood Urea Nitrogen 60 mg/dL (9-16); Carbon Dioxide 29 mmol/L (22-29); Chloride 102 mmol/L (96-108); Creatinine Clr Calc Pharmacy 20.6; Estimated Glomerular Filt Rate 20; Glucose Fasting 166 mg/dL (60-99); Glucose Random 166 mg/dL (60-115); Magnesium 2.5 mg/dL (1.6-2.6); Potassium 3.3 mmol/L (3.3-5.1); Sodium 143 mmol/L (135-145)
[2024-02-24] MEDS: Fluticasone/Vilanterol 100/25 BLST.W.DEV 1 PUFF INHALE (08:21)
[2024-02-24] MEDS: Isosorbide Mononitrate 30 MG TAB.ER.24H PO (08:27)
[2024-02-24] MEDS: Amiodarone HCL 200 MG TABLET PO (08:27)
[2024-02-24] MEDS: Empagliflozin 10 MG TABLET PO (08:27)
[2024-02-24] MEDS: Atorvastatin Calcium 40 MG TABLET PO (08:27)
[2024-02-24] MEDS: Metoprolol Succinate ER 25 MG TAB.ER.24H PO (08:27)
[2024-02-24] MEDS: hydrALAZINE HCl 25 MG TABLET PO ×3 (08:27→21:38)
--- NOTE | 2024-02-24 09:34 | P.PNIM_ITS ---
Subjective Subjective Date of Service: 02/24/24 Interval History: sob imrpoved Physical Exam 2 Vital Signs: Vital Signs: Last Vital Signs Temp 98 F 02/24/24 06:55 Pulse 60 02/24/24 08:21 Resp 15 02/24/24 08:21 BP 121/56 L 02/24/24 06:55 Pulse Ox 95 02/24/24 06:55 O2 Del Method Room Air 02/24/24 06:55 O2 Flow Rate 2 02/24/24 00:00 BMI result Body Mass Index 32.5 GENERAL APPEARANCE: in no acute distress, on supplemental oxygen NECK: no carotid bruit, + jugular venous distention. SKIN: no suspicious lesions, warm and dry. HEART: no murmurs, regular rate and rhythm. LUNGS: Few wheezes bilaterally. No crackles. ABDOMEN: soft, nontender. EXTREMITIES: no edema. PERIPHERAL PULSES: equal. NEUROLOGIC: No gross deficits, AAO X 3 Objective Data Active Medications Acetaminophen (Acetaminophen 325 Mg Tablet) 650 mg PO Q6H PRN PRN Reason: Pain, Mild (Pain Scale 1-3), fever or headache Al Hydroxide/Mg Hydroxide (Magnesium Hydrox/Alum Hydrox 30 Ml Oral.Susp) 30 ml PO Q4H PRN PRN Reason: Heartburn Albuterol Sulfate (Albuterol Sulfate 90 Mcg 8 Gm Inhaler) 2 puff INHALE Q6H PRN PRN Reason: Shortness Of Breath Amiodarone HCl (Amiodarone Hcl 200 Mg Tablet) 200 mg PO DAILY [facility] Last Admin: 02/24/24 08:27 Dose: 200 mg Documented By: JACQUES Atorvastatin Calcium (Atorvastatin Calcium 40 Mg Tablet) 40 mg PO DAILY [facility] Last Admin: 02/24/24 08:27 Dose: 40 mg Documented By: JACQUES Calcium Carbonate (Calcium Carbonate 750 Mg Tab.Chew) 750 mg PO Q4H PRN PRN Reason: Heartburn Empagliflozin (Empagliflozin 10 Mg Tablet) 10 mg PO DAILY [facility] Last Admin: 02/24/24 08:27 Dose: 10 mg Documented By: JACQUES Fluticasone/Vilanterol (Fluticasone/Vilanterol 100/25 Blst.W.Dev) 1 puff INHALE DAILY [facility] Last Admin: 02/24/24 08:21 Dose: 1 puff Documented By: NIESHA Hydralazine HCl (Hydralazine Hcl 25 Mg Tablet) 25 mg PO TID [facility]; Protocol Last Admin: 02/24/24 08:27 Dose: 25 mg Documented By: JACQUES Furosemide 200 mg/ Sodium (Chloride) 100 mls @ 5 mls/hr IVCONT .Q20H [facility] Last Admin: 02/23/24 21:21 Dose: 10 mg/hr, 5 mls/hr Documented By: ADELAIDE Isosorbide Mononitrate (Isosorbide Mononitrate 30 Mg Tab.Er.24h) 30 mg PO DAILY [facility]; Protocol Last Admin: 02/24/24 08:27 Dose: 30 mg Documented By: JACQUES Magnesium Hydroxide (Milk Of Magnesia 30 Ml Oral.Susp) 30 ml PO DAILY PRN PRN Reason: Constipation Melatonin (Melatonin 3 Mg Tablet) 6 mg PO BEDTIME PRN PRN Reason: Insomnia Metoprolol Succinate (Metoprolol Succinate Er 25 Mg Tab.Er.24h) 25 mg PO DAILY [facility]; Protocol Last Admin: 02/24/24 08:27 Dose: 25 mg Documented By: JACQUES Ondansetron HCl (Ondansetron Hcl 4 Mg/2 Ml Vial) 4 mg IVPUSH Q8H PRN PRN Reason: Nausea and Vomiting Sodium Chloride (0.9 % Sodium Chloride Flush 3 Ml Syringe) 3 ml IVFLUSH QSHIFT [facility] Last Admin: 02/24/24 08:27 Dose: Not Given Documented By: JACQUES Non-Admin Reason: IV Running Trazodone HCl (Trazodone Hcl 100 Mg Tablet) 100 mg PO BEDTIME PRN PRN Reason: Sleep Warfarin Sodium (Warfarin Sodium 2 Mg Tablet) 2 mg PO TUSA@1800 [facility] Last Admin: 02/23/24 17:00 Dose: 2 mg Documented By: ZAIDA Warfarin Sodium (Warfarin Sodium 1 Mg Tablet) 1 mg PO SUMOWETHFR@1800 [facility] Labs 02/24/24 05:35 02/24/24 05:35 Labs: Laboratory Results - last 24 hr 02/24/24 05:35 MCV 93.8 MCH 31.1 MCHC 33.1 RDW 15.0 Plt Count 117 L MPV 13.6 H Absolute Nucleated RBC 0.000 Nucleated RBC % (auto) 0.0 PT 27.6 H INR 2.3 H Anion Gap 15 Estim Creat Clear Calc 20.6 Estimated GFR 20 Random Glucose 166 H Fasting Glucose 166 H Calcium 9.0 Magnesium 2.5 Assessment and Plan (1) Acute HFrEF (heart failure with reduced ejection fraction): Status: Acute Plan 84M PMH coronary artery disease, ischemic cardiomyopathy status post AICD with EF of 30-35%, CKD 3, hypertension, hyperlipidemia, chronic atrial fibrillation, presented with shortness of breath Acute on chronic systolic CHF continue Lasix drip at 10 mg/hr Cardiology following echo with worsneing EF YUMIKO on CKD 3 Suspect cardiorenal, monitor while on diuresis - so far improving slightly Chronic atrial fibrillation Amiodarone, Toprol, warfarin Diabetes Insulin sliding scale COPD stable, continue inhalers dvt prophylaxis - coumadin full code reason for continued hospitalization: iv diuresis Quality Stroke Does the patient have a stroke diagnosis?: No VTE Prior VTE?: No VTE Risk Level:: Medical - moderate - high VTE Device Contraindication: Treatment Not Indicated VTE Drug Contraindication: N/A - Med Ordered
[2024-02-24] MEDS: Potassium Chloride ER 20 MEQ TAB.ER.PRT 40 MEQ PO (11:45)
[2024-02-24] MEDS: metOLazone 2.5 MG TABLET PO (11:45)
--- NOTE | 2024-02-24 12:49 | PM.PNCARD ---
Subjective Subjective Date of Service: 02/24/24 Interval history: Seen examined at bedside. Significantly volume overloaded.-900 cc on Lasix drip 10 milligram/hour. Physical Exam Vital Signs: Last Vital Signs Temp 98.3 F 02/24/24 11:08 Pulse 58 02/24/24 11:08 Resp 17 02/24/24 11:08 BP 116/54 L 02/24/24 11:08 Pulse Ox 97 02/24/24 11:08 O2 Del Method Room Air 02/24/24 11:08 O2 Flow Rate 2 02/24/24 00:00 BMI result Body Mass Index 32.5 GENERAL APPEARANCE: in no acute distress, on supplemental oxygen NECK: no carotid bruit, ++ jugular venous distention. SKIN: no suspicious lesions, warm and dry. HEART: no murmurs, regular rate and rhythm. LUNGS: No added sounds. ABDOMEN: soft, nontender. EXTREMITIES: no edema. PERIPHERAL PULSES: equal. NEUROLOGIC: No gross deficits, AAO X 3 Objective Labs and Meds 02/24/24 05:35 02/24/24 05:35 Lab results: Laboratory Results - last 24 hr 02/24/24 05:35 WBC 7.6 RBC 3.41 L Hgb 10.6 L Hct 32.0 L MCV 93.8 MCH 31.1 MCHC 33.1 RDW 15.0 Plt Count 117 L MPV 13.6 H Absolute Nucleated RBC 0.000 Nucleated RBC % (auto) 0.0 PT 27.6 H INR 2.3 H Sodium 143 Potassium 3.3 Chloride 102 Carbon Dioxide 29 Anion Gap 15 BUN 60 H Creatinine 2.97 H Estim Creat Clear Calc 20.6 Estimated GFR 20 Random Glucose 166 H Fasting Glucose 166 H Calcium 9.0 Magnesium 2.5 Progress Note: A&P Assessment and plan (1) Acute on chronic congestive heart failure: Status: Acute Plan 84-year-old gentleman with nonischemic cardiomyopathy with previous ICD presenting with acute on chronic congestive heart failure. Significantly volume overloaded and is currently on Lasix drip. He had significant creatinine worsening on admission but creatinine overall is currently stable. He is -900 cc on Lasix drip 10 milligram/hour. Potassium 40 mEq and 1 dose of metolazone 2.5 mg p.o. given. If he does not diurese better with this then 5 mg of metolazone orally should be given. Monitor electrolytes closely. Added Jardiance 10 mg daily. Using hydralazine and Imdur combination currently. If creatinine improved significantly then we will consider Entresto. Beta-lindy dose should not be titrated. Thank you for allowing me to participate in the care of your patient. Please feel free to contact me if you have any questions. Time Spent With Patient Time: Total time managing care of this patient today ____ minutes. Progress Note: Quality Stroke Does the patient have a stroke diagnosis?: No Procedures Date of Service Date of Service: 02/24/24
[2024-02-24] MEDS: 0.9 % Sodium Chloride Flush 3 ML SYRINGE IVFLUSH ×2 (15:13→23:20)
[2024-02-24] MEDS: Warfarin Sodium 1 MG TABLET PO (17:18)
[2024-02-24] MEDS: Furosemide 200 MG in 0.9 % Sodium Chloride 80 ML IVCONT (22:33)
[2024-02-25] VITALS (9 sets, daily range): BP systolic 109–155; BP diastolic 53–72; PULSE 56–77; RESP 14–20; TEMP 35.9–37.3; O2SAT 93–98
[2024-02-25 07:12] LABS: Hematocrit 32.8 % (42.0-52.0); Hemoglobin 10.7 g/dl (14.0-18.0); Mean Corpuscular HGB Conc 32.6 g/dl (31.0-36.0); Mean Corpuscular Hemoglobin 29.8 pg (27.0-33.0); Mean Corpuscular Volume 91.4 fL (80.0-98.0); Platelet Count 121 X10*3/uL (160-400); Red Blood Count 3.59 X10*6/uL (4.60-5.80); Red Cell Distribution Width 15.1 % (11.0-16.0); White Blood Count 7.6 X10*3/uL (4.8-10.8)
[2024-02-25 07:23] LABS: Anion Gap 16 (12-20); Blood Urea Nitrogen 58 mg/dL (9-16); Calcium 9.3 mg/dL (8.4-10.2); Carbon Dioxide 33 mmol/L (22-29); Chloride 97 mmol/L (96-108); Creatinine Clr Calc Pharmacy 22.5; Estimated Glomerular Filt Rate 23; Glucose Fasting 115 mg/dL (60-99); Glucose Random 115 mg/dL (60-115); Magnesium 2.3 mg/dL (1.6-2.6); Potassium 3.3 mmol/L (3.3-5.1); Sodium 143 mmol/L (135-145)
[2024-02-25 07:37] LABS: INTERNATIONAL NORM RATIO 2.2 (0.9-1.1); Prothrombin Time 26.6 SEC (11.1-13.3)
[2024-02-25] MEDS: Fluticasone/Vilanterol 100/25 BLST.W.DEV 1 PUFF INHALE (08:28)
--- NOTE | 2024-02-25 11:31 | HO.PM.IMPN ---
Subjective Subjective Date of Service: 02/25/24 Interval History: improving Physical Exam Vital Signs: Vital Signs: Last Vital Signs Temp 98.3 F 02/25/24 11:03 Pulse 56 02/25/24 11:03 Resp 20 02/25/24 11:03 BP 139/63 02/25/24 11:03 Pulse Ox 93 02/25/24 11:03 O2 Del Method Room Air 02/25/24 11:03 O2 Flow Rate 2 02/24/24 00:00 BMI result Body Mass Index 32.5 GENERAL APPEARANCE: in no acute distress, on supplemental oxygen NECK: no carotid bruit, ++ jugular venous distention. SKIN: no suspicious lesions, warm and dry. HEART: no murmurs, regular rate and rhythm. LUNGS: No added sounds. ABDOMEN: soft, nontender. EXTREMITIES: no edema. PERIPHERAL PULSES: equal. NEUROLOGIC: No gross deficits, AAO X 3 Objective Data Active Medications Acetaminophen (Acetaminophen 325 Mg Tablet) 650 mg PO Q6H PRN PRN Reason: Pain, Mild (Pain Scale 1-3), fever or headache Al Hydroxide/Mg Hydroxide (Magnesium Hydrox/Alum Hydrox 30 Ml Oral.Susp) 30 ml PO Q4H PRN PRN Reason: Heartburn Albuterol Sulfate (Albuterol Sulfate 90 Mcg 8 Gm Inhaler) 2 puff INHALE Q6H PRN PRN Reason: Shortness Of Breath Amiodarone HCl (Amiodarone Hcl 200 Mg Tablet) 200 mg PO DAILY [facility] Last Admin: 02/24/24 08:27 Dose: 200 mg Documented By: JACQUES Atorvastatin Calcium (Atorvastatin Calcium 40 Mg Tablet) 40 mg PO DAILY [facility] Last Admin: 02/24/24 08:27 Dose: 40 mg Documented By: JACQUES Calcium Carbonate (Calcium Carbonate 750 Mg Tab.Chew) 750 mg PO Q4H PRN PRN Reason: Heartburn Empagliflozin (Empagliflozin 10 Mg Tablet) 10 mg PO DAILY [facility] Last Admin: 02/24/24 08:27 Dose: 10 mg Documented By: JACQUES Fluticasone/Vilanterol (Fluticasone/Vilanterol 100/25 Blst.W.Dev) 1 puff INHALE DAILY [facility] Last Admin: 02/25/24 08:28 Dose: 1 puff Documented By: NIESHA Hydralazine HCl (Hydralazine Hcl 25 Mg Tablet) 25 mg PO TID [facility]; Protocol Last Admin: 02/24/24 21:38 Dose: 25 mg Documented By: SANDRA Furosemide 200 mg/ Sodium (Chloride) 100 mls @ 5 mls/hr IVCONT .Q20H [facility] Last Admin: 02/24/24 22:33 Dose: 10 mg/hr, 5 mls/hr Documented By: SANDRA Isosorbide Mononitrate (Isosorbide Mononitrate 30 Mg Tab.Er.24h) 30 mg PO DAILY [facility]; Protocol Last Admin: 02/24/24 08:27 Dose: 30 mg Documented By: JACQUES Magnesium Hydroxide (Milk Of Magnesia 30 Ml Oral.Susp) 30 ml PO DAILY PRN PRN Reason: Constipation Melatonin (Melatonin 3 Mg Tablet) 6 mg PO BEDTIME PRN PRN Reason: Insomnia Metoprolol Succinate (Metoprolol Succinate Er 25 Mg Tab.Er.24h) 25 mg PO DAILY [facility]; Protocol Last Admin: 02/24/24 08:27 Dose: 25 mg Documented By: JACQUES Ondansetron HCl (Ondansetron Hcl 4 Mg/2 Ml Vial) 4 mg IVPUSH Q8H PRN PRN Reason: Nausea and Vomiting Sodium Chloride (0.9 % Sodium Chloride Flush 3 Ml Syringe) 3 ml IVFLUSH QSHIFT [facility] Last Admin: 02/24/24 23:20 Dose: 3 ml Documented By: SANDRA Trazodone HCl (Trazodone Hcl 100 Mg Tablet) 100 mg PO BEDTIME PRN PRN Reason: Sleep Warfarin Sodium (Warfarin Sodium 2 Mg Tablet) 2 mg PO TUSA@1800 [facility] Last Admin: 02/23/24 17:00 Dose: 2 mg Documented By: ZAIDA Warfarin Sodium (Warfarin Sodium 1 Mg Tablet) 1 mg PO SUMOWETHFR@1800 [facility] Last Admin: 02/24/24 17:18 Dose: 1 mg Documented By: ZAIDA Labs 02/25/24 06:57 02/25/24 06:57 Labs: Laboratory Results - last 24 hr 02/25/24 06:57 MCV 91.4 MCH 29.8 MCHC 32.6 RDW 15.1 Plt Count 121 L MPV 13.0 H Absolute Nucleated RBC 0.000 Nucleated RBC % (auto) 0.0 PT 26.6 H INR 2.2 H Anion Gap 16 Estim Creat Clear Calc 22.5 Estimated GFR 23 Random Glucose 115 Fasting Glucose 115 H Calcium 9.3 Magnesium 2.3 Assessment and Plan (1) Acute HFrEF (heart failure with reduced ejection fraction): Status: Acute Plan 84M PMH coronary artery disease, ischemic cardiomyopathy status post AICD with EF of 30-35%, CKD 3, hypertension, hyperlipidemia, chronic atrial fibrillation, presented with shortness of breath Acute on chronic systolic CHF continue Lasix drip at 10 mg/hr received zaroxylyn 02/24/24 Cardiology following echo with worsneing EF YUMIKO on CKD 3 Suspect cardiorenal, monitor while on diuresis - so far improving Chronic atrial fibrillation Amiodarone, Toprol, warfarin Diabetes Insulin sliding scale COPD stable, continue inhalers dvt prophylaxis - coumadin full code reason for continued hospitalization: iv diuresis Quality Stroke Does the patient have a stroke diagnosis?: No VTE Prior VTE?: No VTE Risk Level:: Medical - moderate - high VTE Device Contraindication: Treatment Not Indicated VTE Drug Contraindication: N/A - Med Ordered
[2024-02-25] MEDS: Atorvastatin Calcium 40 MG TABLET PO (12:26)
[2024-02-25] MEDS: Isosorbide Mononitrate 30 MG TAB.ER.24H PO (12:26)
[2024-02-25] MEDS: Amiodarone HCL 200 MG TABLET PO (12:26)
[2024-02-25] MEDS: hydrALAZINE HCl 25 MG TABLET PO ×3 (12:26→21:52)
[2024-02-25] MEDS: Metoprolol Succinate ER 25 MG TAB.ER.24H PO (12:27)
[2024-02-25] MEDS: Empagliflozin 10 MG TABLET PO (12:27)
--- NOTE | 2024-02-25 12:42 | PM.PNCARD ---
Subjective Subjective Date of Service: 02/25/24 Principal diagnosis: Decompensated congestive heart failure Interval history: Patient says he is feeling better. Breathing is improved. Has diuresed significantly. Leg edema persist. Renal function is gradually improving. Review of Systems Constitutional: Reports no additional constitutional complaints Cardiovascular: Denies syncope, Reports leg edema, Denies lightheadedness, Denies Loss of Consciousness, Denies palpitations and Reports dyspnea on exertion Respiratory: Reports no additional respiratory complaints and Reports dyspnea on exertion Denies syncope Psychiatric: Reports no additional psychiatric complaints Endocrine: Denies palpitations Physical Exam Vital Signs: Last Vital Signs Temp 98.3 F 02/25/24 11:03 Pulse 56 02/25/24 11:03 Resp 20 02/25/24 11:03 BP 139/63 02/25/24 11:03 Pulse Ox 93 02/25/24 11:03 O2 Del Method Room Air 02/25/24 11:03 O2 Flow Rate 2 02/24/24 00:00 BMI result Body Mass Index 32.5 GENERAL APPEARANCE: in no acute distress, on supplemental oxygen NECK: no carotid bruit, ++ jugular venous distention. SKIN: no suspicious lesions, warm and dry. HEART: no murmurs, regular rate and rhythm. LUNGS: No added sounds. ABDOMEN: soft, nontender. EXTREMITIES: +2 edema. PERIPHERAL PULSES: equal. NEUROLOGIC: No gross deficits, AAO X 3 Objective Labs and Meds 02/25/24 06:57 02/25/24 06:57 Lab results: Laboratory Results - last 24 hr 02/25/24 06:57 WBC 7.6 RBC 3.59 L Hgb 10.7 L Hct 32.8 L MCV 91.4 MCH 29.8 MCHC 32.6 RDW 15.1 Plt Count 121 L MPV 13.0 H Absolute Nucleated RBC 0.000 Nucleated RBC % (auto) 0.0 PT 26.6 H INR 2.2 H Sodium 143 Potassium 3.3 Chloride 97 Carbon Dioxide 33 H Anion Gap 16 BUN 58 H Creatinine 2.71 H Estim Creat Clear Calc 22.5 Estimated GFR 23 Random Glucose 115 Fasting Glucose 115 H Calcium 9.3 Magnesium 2.3 Progress Note: A&P Assessment and plan (1) Acute HFrEF (heart failure with reduced ejection fraction): Status: Acute Assessment and Plan: Patient with improving heart failure. Still appears to be fluid overloaded. Continue IV diuresis. Strict intake and output chart needs to be pursued. Follow-up BMP and BNP tomorrow. Renal function is gradually improving as expected. Continue rhythm control approach, see below. Continue current vasodilators therapy with hydralazine and isosorbide. Continue metoprolol therapy. He has multiple comorbidities including advanced age, noncompliance to instructions and medications, advanced renal dysfunction, increasing risk for subsequent hospitalizations. Discussed management with him. (2) Atrial flutter: Status: Acute Assessment and Plan: Atrial flutter/fibrillation currently suppressed on amiodarone therapy. Continue the same. Currently on warfarin therapy for anticoagulation continue the same. Target INR between 2 and 3. Will follow with you Time Spent With Patient Time: Total time managing care of this patient today ____ minutes. Progress Note: Quality Stroke Does the patient have a stroke diagnosis?: No Procedures Date of Service Date of Service: 02/25/24
--- NOTE | 2024-02-25 13:45 | MHC.CM.PN ---
EMR reviewed and per MD rounds, pt is not medically cleared for discharge due to ongoing management of acute on chronic CHF, requiring continues IV lasix gtt.
[2024-02-25] MEDS: Warfarin Sodium 1 MG TABLET PO (16:53)
[2024-02-25] MEDS: Furosemide 200 MG in 0.9 % Sodium Chloride 80 ML IVCONT (16:53)
[2024-02-25] MEDS: 0.9 % Sodium Chloride Flush 3 ML SYRINGE IVFLUSH ×2 (18:10→23:26)
--- NOTE | 2024-02-25 21:49 | P.PNNP_ITS ---
Subjective Subjective Date of Service: 02/25/24 Principal diagnosis: Decompensated congestive heart failure Interval history: Events noted Breating is better Non oliguric Cr improving Physical Exam 2 Vital Signs: Vital Signs: Last Vital Signs Temp 97.5 F 02/25/24 19:31 Pulse 56 02/25/24 19:31 Resp 16 02/25/24 19:31 BP 109/53 L 02/25/24 19:31 Pulse Ox 94 02/25/24 19:31 O2 Del Method Room Air 02/25/24 19:31 O2 Flow Rate 2 02/24/24 00:00 BMI result Body Mass Index 32.5 Const: Other: SOB General: no acute distress Orientation/consciousness: patient oriented x3 HEENT: Head: Yes normocephalic Eyes: EOM: EOMs intact bilaterally Neck: Neck: Yes supple Resp: Auscultation: diminished lung sounds Cardio: Rate: regular rate GI: Palpation (GI): Soft to palpation Neuro: General: patient oriented x3 Extrem: Other: No significant edema Objective Data Labs 02/25/24 06:57 02/25/24 06:57 Labs: Laboratory Results - last 24 hr 02/25/24 06:57 WBC 7.6 RBC 3.59 L Hgb 10.7 L Hct 32.8 L MCV 91.4 MCH 29.8 MCHC 32.6 RDW 15.1 Plt Count 121 L MPV 13.0 H Absolute Nucleated RBC 0.000 Nucleated RBC % (auto) 0.0 PT 26.6 H INR 2.2 H Sodium 143 Potassium 3.3 Chloride 97 Carbon Dioxide 33 H Anion Gap 16 BUN 58 H Creatinine 2.71 H Estim Creat Clear Calc 22.5 Estimated GFR 23 Random Glucose 115 Fasting Glucose 115 H Calcium 9.3 Magnesium 2.3 Procedures Date of Service Date of Service: 02/25/24 Assessment & Plan Assessment and plan (1) Acute HFrEF (heart failure with reduced ejection fraction): Status: Acute (2) Atrial flutter: Status: Acute Assessment and Plan: Atrial flutter/fibrillation currently suppressed on amiodarone therapy. Continue the same. Currently on warfarin therapy for anticoagulation continue the same. Target INR between 2 and 3. Will follow with you (3) Acute kidney injury superimposed on chronic kidney disease: Status: Acute Plan Cardio renal syndrome Renal function is improving Keep O > I Can change from Lasix drip to LAsix PRN Low salt diet Supportive care No indication for dialysis Time Spent With Patient Time: Total time managing care of this patient today ____ minutes. Progress Note: Quality Stroke Does the patient have a stroke diagnosis?: No
[2024-02-26 03:24] VITALS: TEMP 36.4
[2024-02-26 07:20] VITALS: BP 153/66; PULSE 55; RESP 18; TEMP 37.3; O2SAT 95
[2024-02-26] MEDS: Fluticasone/Vilanterol 100/25 BLST.W.DEV 1 PUFF INHALE (08:04)
[2024-02-26 08:05] VITALS: PULSE 58; RESP 18; O2SAT 92
[2024-02-26 08:26] LABS: Prothrombin Time 24.4 SEC (11.1-13.3)
[2024-02-26 08:40] LABS: Anion Gap 18 (12-20); Blood Urea Nitrogen 55 mg/dL (9-16); Calcium 10.2 mg/dL (8.4-10.2); Carbon Dioxide 37 mmol/L (22-29); Chloride 90 mmol/L (96-108); Creatinine Clr Calc Pharmacy 23.8; Estimated Glomerular Filt Rate 24; Glucose Fasting 107 mg/dL (60-99); Glucose Random 107 mg/dL (60-115); Sodium 142 mmol/L (135-145)
[2024-02-26 08:43] LABS: Potassium 2.7 mmol/L (3.3-5.1)
--- NOTE | 2024-02-26 09:09 | P.CONNP_ITS ---
History of Present Illness Reason for Consult Consult date: 02/26/24 Chief Complaint Chief complaint: Acute Heart Failure, YUMIKO History of Present Illness Narrative: 84 year old male with PMH of CKD, CAD s/p NSTEMI, cardiomyopathy s/p AICD in august 2020 at that time EF was 10 to 15%, most recent EF from december 2022 is 30 to 35 % presented with weakness and progressive shortness of breath. He came in with increased leg edema, PND, orthopnea and fatigue. Work up in ED with CXR show pulmonary vascular congestion, BNP 3067, and Creatine is 3.08. Was admitted for further management. Nephrology has been consulted to assist in his clinical care during his current hospital stay Review of Systems Review of Systems Gen: no fever Resp: no shortness of breath CV: no chest pain, no leg edema GI: No n/v, no abd pain Neuro: No confusion, generalized fatigue Yes all other systems are reviewed and are negative Cardiovascular: Denies chest pain, Denies pedal edema, Denies lightheadedness and Denies dyspnea Respiratory: Reports no additional respiratory complaints and Denies dyspnea Gastrointestinal: Denies no additional gastrointestinal complaints and Denies abdominal pain Genitourinary: Denies difficulty urinating, Denies dysuria and Denies flank pain Comments: alert and oriented x3 PMFSH Past Medical History Medical History Atherosclerotic cardiovascular disease Fatigue High triglycerides Erectile dysfunction Typical atrial flutter Nonischemic cardiomyopathy Hearing loss COPD (chronic obstructive pulmonary disease) Chronic a-fib Atrial fibrillation Elevated blood sugar Asthma Hyperlipidemia HTN (hypertension) Stroke Family History Family History Father Unknown family medical history Mother Unknown family medical history Surgical History Surgical History Presence of single chamber implantable cardioverter-defibrillator (ICD) History of appendectomy History of tonsillectomy Social History Social History Household Members: None Housing: Apartment Are you a primary acute care assistant to a significant other at home: No Do you presently have 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) Alcohol intake: current Alcohol intake frequency: holidays/special occasions only Patient Tobacco Use Status: Current everyday Tobacco user Cigarettes Per Day: 1 Years Smoked: 70 +/- e-Cigarette/Vaping Use: Never Used Second Hand Smoke Exposure: No Advance Directives Date on File: 08/18/20 service: No Current occupational status: retired Cognitive needs: No Hearing needs: No Vision needs: No Meds Allergies Allergy/AdvReac Type Severity Reaction Status Date / Time lisinopril Allergy Intermediate Rash Verified 02/21/24 22:12 Active Medications: Current Medications Acetaminophen (Acetaminophen 325 Mg Tablet) 650 mg PO Q6H PRN PRN Reason: Pain, Mild (Pain Scale 1-3), fever or headache Al Hydroxide/Mg Hydroxide (Magnesium Hydrox/Alum Hydrox 30 Ml Oral.Susp) 30 ml PO Q4H PRN PRN Reason: Heartburn Albuterol Sulfate (Albuterol Sulfate 90 Mcg 8 Gm Inhaler) 2 puff INHALE Q6H PRN PRN Reason: Shortness Of Breath Amiodarone HCl (Amiodarone Hcl 200 Mg Tablet) 200 mg PO DAILY [facility] Last Admin: 02/25/24 12:26 Dose: 200 mg Atorvastatin Calcium (Atorvastatin Calcium 40 Mg Tablet) 40 mg PO DAILY [facility] Last Admin: 02/25/24 12:26 Dose: 40 mg Calcium Carbonate (Calcium Carbonate 750 Mg Tab.Chew) 750 mg PO Q4H PRN PRN Reason: Heartburn Empagliflozin (Empagliflozin 10 Mg Tablet) 10 mg PO DAILY [facility] Last Admin: 02/25/24 12:27 Dose: 10 mg Fluticasone/Vilanterol (Fluticasone/Vilanterol 100/25 Blst.W.Dev) 1 puff INHALE DAILY [facility] Last Admin: 02/26/24 08:04 Dose: 1 puff Hydralazine HCl (Hydralazine Hcl 25 Mg Tablet) 25 mg PO TID [facility]; Protocol Last Admin: 02/25/24 21:52 Dose: 25 mg Furosemide 200 mg/ Sodium (Chloride) 100 mls @ 5 mls/hr IVCONT .Q20H [facility] Last Admin: 02/25/24 16:53 Dose: 10 mg/hr, 5 mls/hr Isosorbide Mononitrate (Isosorbide Mononitrate 30 Mg Tab.Er.24h) 30 mg PO DAILY [facility]; Protocol Last Admin: 02/25/24 12:26 Dose: 30 mg Magnesium Hydroxide (Milk Of Magnesia 30 Ml Oral.Susp) 30 ml PO DAILY PRN PRN Reason: Constipation Melatonin (Melatonin 3 Mg Tablet) 6 mg PO BEDTIME PRN PRN Reason: Insomnia Metoprolol Succinate (Metoprolol Succinate Er 25 Mg Tab.Er.24h) 25 mg PO DAILY [facility]; Protocol Last Admin: 02/25/24 12:27 Dose: 25 mg Ondansetron HCl (Ondansetron Hcl 4 Mg/2 Ml Vial) 4 mg IVPUSH Q8H PRN PRN Reason: Nausea and Vomiting Sodium Chloride (0.9 % Sodium Chloride Flush 3 Ml Syringe) 3 ml IVFLUSH QSHIFT [facility] Last Admin: 02/25/24 23:26 Dose: 3 ml Trazodone HCl (Trazodone Hcl 100 Mg Tablet) 100 mg PO BEDTIME PRN PRN Reason: Sleep Warfarin Sodium (Warfarin Sodium 2 Mg Tablet) 2 mg PO TUSA@1800 [facility] Last Admin: 02/23/24 17:00 Dose: 2 mg Warfarin Sodium (Warfarin Sodium 1 Mg Tablet) 1 mg PO SUMOWETHFR@1800 [facility] Last Admin: 02/25/24 16:53 Dose: 1 mg Home Medications ?Medication ?Instructions ?Recorded ?Confirmed ?Last Taken ?Type metoprolol succinate 25 mg 25 mg PO DAILY 02/22/24 02/22/24 02/21/24 History tablet,extended release 24 hr sildenafil 100 mg tablet 100 mg PO DIRECTED PRN Sexual 02/22/24 02/22/24 Unknown History Activity trazodone 100 mg tablet 100 mg PO BEDTIME PRN Sleep 02/22/24 02/22/24 Unknown History warfarin 2 mg tablet 1 mg PO SUMOWETHFR@1800 02/22/24 02/22/24 02/21/24 History warfarin 2 mg tablet 2 mg PO TUSA@1800 02/22/24 02/22/24 02/19/24 History Physical Exam Vital Signs: Last Vital Signs Temp 99.1 F 02/26/24 07:20 Pulse 58 02/26/24 08:05 Resp 18 02/26/24 08:05 BP 153/66 H 02/26/24 07:20 Pulse Ox 95 02/26/24 07:20 O2 Del Method Room Air 02/26/24 07:20 O2 Flow Rate 2 02/24/24 00:00 BMI result Body Mass Index 32.5 Const Other: SOB General: no acute distress Orientation/consciousness: patient oriented x3 Eyes EOM: EOMs intact bilaterally Neck Neck: Yes supple and Yes no JVD Resp Effort & Inspection: normal respiratory effort Auscultation: clear to auscultation bilaterally and diminished lung sounds Cardio Jugular venous distension: no JVD Rate: regular rate Rhythm: regular rhythm GI Palpation (GI): Soft to palpation General: Yes no CVA tenderness Back/Spine/Pelvis Back: no CVA tenderness Neuro General: patient oriented x3 Extrem Other: No significant edema General: Yes no pedal edema Results Lab Results 02/25/24 06:57 02/26/24 07:19 Lab results: Chemistry 02/24/24 02/25/24 02/26/24 05:35 06:57 07:19 Sodium 143 143 142 Potassium 3.3 3.3 2.7 L* Carbon Dioxide 29 33 H 37 H BUN 60 H 58 H 55 H Creatinine 2.97 H 2.71 H 2.57 H Calcium 9.0 9.3 10.2 D Hematology 02/24/24 02/25/24 05:35 06:57 WBC 7.6 7.6 Hgb 10.6 L 10.7 L Plt Count 117 L 121 L Assessment and Plan (1) Acute HFrEF (heart failure with reduced ejection fraction): Status: Acute (2) Atrial flutter: Qualifiers: Atrial flutter type: unspecified Qualified Code(s): I48.92 - Unspecified atrial flutter Status: Acute (3) Acute kidney injury superimposed on chronic kidney disease: Status: Acute Plan Cardio renal syndrome Renal function is improving; CO2 trending up and hypokalemic, likely secondary to contraction alkalosis due to overdiuresis, would recommend switching to lasix PO PRN and discontinuing lasix drip Keep O > I Low salt diet Supportive care No indication for dialysis Procedures Date of Service Date of Service: 02/26/24
--- NOTE | 2024-02-26 09:41 | PM.PNCARD ---
Subjective Subjective Date of Service: 02/26/24 Principal diagnosis: Decompensated congestive heart failure Interval history: Patient feeling a lot better. Leg edema is improved. Shortness of breath improved. No orthopnea, PND. Review of Systems Constitutional: Reports no additional constitutional complaints Cardiovascular: Reports no additional cardiovascular complaints Respiratory: Reports no additional respiratory complaints Reports system reviewed and no additional complaints, except as documented Endocrine: Reports no additional endocrine complaints Physical Exam Vital Signs: Last Vital Signs Temp 99.1 F 02/26/24 07:20 Pulse 58 02/26/24 08:05 Resp 18 02/26/24 08:05 BP 153/66 H 02/26/24 07:20 Pulse Ox 95 02/26/24 07:20 O2 Del Method Room Air 02/26/24 07:20 O2 Flow Rate 2 02/24/24 00:00 BMI result Body Mass Index 32.5 GENERAL APPEARANCE: in no acute distress, on supplemental oxygen NECK: no carotid bruit, no jugular venous distention. SKIN: no suspicious lesions, warm and dry. HEART: no murmurs, regular rate and rhythm. LUNGS: No added sounds. ABDOMEN: soft, nontender. EXTREMITIES: minimal edema. PERIPHERAL PULSES: equal. NEUROLOGIC: No gross deficits, AAO X 3 Objective Labs and Meds 02/25/24 06:57 02/26/24 07:19 Lab results: Laboratory Results - last 24 hr 02/26/24 07:19 PT 24.4 H INR 2.0 H Sodium 142 Potassium 2.7 L* Chloride 90 L Carbon Dioxide 37 H Anion Gap 18 BUN 55 H Creatinine 2.57 H Estim Creat Clear Calc 23.8 Estimated GFR 24 Random Glucose 107 Fasting Glucose 107 H Calcium 10.2 D Progress Note: A&P Assessment and plan (1) Acute HFrEF (heart failure with reduced ejection fraction): Status: Acute Assessment and Plan: Much improved heart failure with overall negative balance of 8600 cc. Can transition to p.o. diuretics, would consider Bumex 1 mg daily. Any other neurohormonal modulation with metoprolol and Jardiance. Continue vasodilators therapy with isosorbide as well as hydralazine. Heart failure management discussed with him. Daily weight monitoring avoidance of salt loading as well as compliance with medications and additional diuretics as need be. He showed understanding but not sure if he will pursue it as some history of noncompliance in the past. May benefit from CardioMEMS device as outpatient if he is compliant. Overall prognosis is guarded given his multiple comorbidities. Replace potassium. If potassium is adequately replaced can be discharged home later today. (2) A-fib: Status: Acute Assessment and Plan: Atrial fibrillation which has remained suppressed on amiodarone therapy. Continue rhythm control approach. Currently on full oral anticoagulation warfarin. Target INR between 2 and 3. Will follow up in the clinic in 10 days. Thank you for allowing me to partake in his care Time Spent With Patient Time: Total time managing care of this patient today ____ minutes. Progress Note: Quality Stroke Does the patient have a stroke diagnosis?: No Procedures Date of Service Date of Service: 02/26/24
--- NOTE | 2024-02-26 10:05 | P.PNNP_ITS ---
Subjective Subjective Date of Service: 02/26/24 Principal diagnosis: Decompensated congestive heart failure Interval history: YUMIKO 2/2 Cardiorenal syndrome likely lasix drip for management pt is diuresing well lying flat and not dypsneic, no lower extremity edema Physical Exam 2 Vital Signs: Vital Signs: Last Vital Signs Temp 99.1 F 02/26/24 07:20 Pulse 58 02/26/24 08:05 Resp 18 02/26/24 08:05 BP 153/66 H 02/26/24 07:20 Pulse Ox 95 02/26/24 07:20 O2 Del Method Room Air 02/26/24 07:20 O2 Flow Rate 2 02/24/24 00:00 BMI result Body Mass Index 32.5 Neck: Neck: Yes supple Resp: Auscultation: clear to auscultation bilaterally Cardio: Palpation: no palpable S3 Heart sounds: no rubs GI: Palpation (GI): Soft to palpation Auscultation: normal bowel sounds Neuro: Motor exam (neuro): no asterixis Objective Data Labs 02/25/24 06:57 02/26/24 07:19 Labs: Laboratory Results - last 24 hr 02/26/24 07:19 PT 24.4 H INR 2.0 H Sodium 142 Potassium 2.7 L* Chloride 90 L Carbon Dioxide 37 H Anion Gap 18 BUN 55 H Creatinine 2.57 H Estim Creat Clear Calc 23.8 Estimated GFR 24 Random Glucose 107 Fasting Glucose 107 H Calcium 10.2 D Procedures Date of Service Date of Service: 02/26/24 Assessment & Plan Assessment and plan (1) Acute kidney injury superimposed on chronic kidney disease: Status: Acute Plan Cardio renal syndrome Renal function is improving; CO2 trending up and hypokalemic, likely secondary to contraction alkalosis due to overdiuresis, would recommend switching to lasix PO and discontinuing lasix drip Keep O > I Low salt diet Follow daily weights Supportive care No indication for dialysis Discussed with Dr Cyr Time Spent With Patient Time: Total time managing care of this patient today ____ minutes. Progress Note: Quality Stroke Does the patient have a stroke diagnosis?: No
[2024-02-26] MEDS: Isosorbide Mononitrate 30 MG TAB.ER.24H PO (10:13)
[2024-02-26] MEDS: hydrALAZINE HCl 25 MG TABLET PO (10:13)
[2024-02-26] MEDS: Amiodarone HCL 200 MG TABLET PO (10:13)
[2024-02-26] MEDS: 0.9 % Sodium Chloride Flush 3 ML SYRINGE IVFLUSH (10:14)
[2024-02-26] MEDS: Metoprolol Succinate ER 25 MG TAB.ER.24H PO (10:14)
[2024-02-26] MEDS: Empagliflozin 10 MG TABLET PO (10:14)
[2024-02-26] MEDS: Atorvastatin Calcium 40 MG TABLET PO (10:14)
[2024-02-26] MEDS: Potassium Chloride ER 20 MEQ TAB.ER.PRT 40 MEQ PO (10:14)
[2024-02-26] MEDS: Potassium Chloride/H20 10 MEQ/100 ML PIGGYBACK 100 MEQ IV ×2 (10:15→11:13)
--- NOTE | 2024-02-26 10:48 | HO.PM.IMPN ---
Subjective Subjective Date of Service: 02/26/24 Interval History: Much improved Physical Exam Vital Signs: Vital Signs: Last Vital Signs Temp 99.1 F 02/26/24 07:20 Pulse 58 02/26/24 08:05 Resp 18 02/26/24 08:05 BP 153/66 H 02/26/24 07:20 Pulse Ox 95 02/26/24 07:20 O2 Del Method Room Air 02/26/24 07:20 O2 Flow Rate 2 02/24/24 00:00 BMI result Body Mass Index 32.5 Neck: Neck: Yes supple Resp: Auscultation: clear to auscultation bilaterally Cardio: Palpation: no palpable S3 Heart sounds: no rubs GI: Palpation (GI): Soft to palpation Auscultation: normal bowel sounds Neuro: Motor exam (neuro): no asterixis Objective Data Active Medications Acetaminophen (Acetaminophen 325 Mg Tablet) 650 mg PO Q6H PRN PRN Reason: Pain, Mild (Pain Scale 1-3), fever or headache Al Hydroxide/Mg Hydroxide (Magnesium Hydrox/Alum Hydrox 30 Ml Oral.Susp) 30 ml PO Q4H PRN PRN Reason: Heartburn Albuterol Sulfate (Albuterol Sulfate 90 Mcg 8 Gm Inhaler) 2 puff INHALE Q6H PRN PRN Reason: Shortness Of Breath Amiodarone HCl (Amiodarone Hcl 200 Mg Tablet) 200 mg PO DAILY [facility] Last Admin: 02/26/24 10:13 Dose: 200 mg Documented By: BRADLEY Atorvastatin Calcium (Atorvastatin Calcium 40 Mg Tablet) 40 mg PO DAILY [facility] Last Admin: 02/26/24 10:14 Dose: 40 mg Documented By: BRADLEY Calcium Carbonate (Calcium Carbonate 750 Mg Tab.Chew) 750 mg PO Q4H PRN PRN Reason: Heartburn Empagliflozin (Empagliflozin 10 Mg Tablet) 10 mg PO DAILY [facility] Last Admin: 02/26/24 10:14 Dose: 10 mg Documented By: BRADLEY Fluticasone/Vilanterol (Fluticasone/Vilanterol 100/25 Blst.W.Dev) 1 puff INHALE DAILY [facility] Last Admin: 02/26/24 08:04 Dose: 1 puff Documented By: FELISHA Hydralazine HCl (Hydralazine Hcl 25 Mg Tablet) 25 mg PO TID [facility]; Protocol Last Admin: 02/26/24 10:13 Dose: 25 mg Documented By: BRADLEY Potassium Chloride (Potassium Chloride/H20) 10 meq in 100 mls @ 100 mls/hr IV Q1H [facility] Stop: 02/26/24 11:44 Last Admin: 02/26/24 10:15 Dose: 100 mls/hr Documented By: BRADLEY Isosorbide Mononitrate (Isosorbide Mononitrate 30 Mg Tab.Er.24h) 30 mg PO DAILY [facility]; Protocol Last Admin: 02/26/24 10:13 Dose: 30 mg Documented By: BRADLEY Magnesium Hydroxide (Milk Of Magnesia 30 Ml Oral.Susp) 30 ml PO DAILY PRN PRN Reason: Constipation Melatonin (Melatonin 3 Mg Tablet) 6 mg PO BEDTIME PRN PRN Reason: Insomnia Metoprolol Succinate (Metoprolol Succinate Er 25 Mg Tab.Er.24h) 25 mg PO DAILY [facility]; Protocol Last Admin: 02/26/24 10:14 Dose: 25 mg Documented By: BRADLEY Ondansetron HCl (Ondansetron Hcl 4 Mg/2 Ml Vial) 4 mg IVPUSH Q8H PRN PRN Reason: Nausea and Vomiting Sodium Chloride (0.9 % Sodium Chloride Flush 3 Ml Syringe) 3 ml IVFLUSH QSHIFT [facility] Last Admin: 02/26/24 10:14 Dose: 3 ml Documented By: BRADLEY Trazodone HCl (Trazodone Hcl 100 Mg Tablet) 100 mg PO BEDTIME PRN PRN Reason: Sleep Warfarin Sodium (Warfarin Sodium 2 Mg Tablet) 2 mg PO TUSA@1800 [facility] Last Admin: 02/23/24 17:00 Dose: 2 mg Documented By: ZAIDA Warfarin Sodium (Warfarin Sodium 1 Mg Tablet) 1 mg PO SUMOWETHFR@1800 [facility] Last Admin: 02/25/24 16:53 Dose: 1 mg Documented By: HERBERT Labs 02/25/24 06:57 02/26/24 07:19 Labs: Laboratory Results - last 24 hr 02/26/24 07:19 PT 24.4 H INR 2.0 H Anion Gap 18 Estim Creat Clear Calc 23.8 Estimated GFR 24 Random Glucose 107 Fasting Glucose 107 H Calcium 10.2 D Assessment and Plan (1) Acute HFrEF (heart failure with reduced ejection fraction): Status: Acute Plan 84M PMH coronary artery disease, ischemic cardiomyopathy status post AICD with EF of 30-35%, CKD 3, hypertension, hyperlipidemia, chronic atrial fibrillation, presented with shortness of breath Acute on chronic systolic CHF Diuresed well with Lasix infusion and Zaroxolyn will transition back to maintenance oral echo with worsneing EF YUMIKO on CKD 3 Suspect cardiorenal, improved while on diuresis Acute hypokalemia Replace and monitor Chronic atrial fibrillation Amiodarone, Toprol, warfarin Diabetes Insulin sliding scale COPD stable, continue inhalers dvt prophylaxis - coumadin full code reason for continued hospitalization: Hypokalemia Quality Stroke Does the patient have a stroke diagnosis?: No VTE Prior VTE?: No VTE Risk Level:: Medical - moderate - high VTE Device Contraindication: Treatment Not Indicated VTE Drug Contraindication: N/A - Med Ordered
--- NOTE | 2024-02-26 10:54 | PM.DS ---
DS: Providers Provider Date of Service: 02/26/24 Date of admission: 02/22/24 02:27 Date of discharge: 02/26/24 Primary care physician: MEHRAN TuttlePDieter Consults: 02/22/24 01:57 Consult to Cardiology Routine Consulting Provider: [facility] Reason for consultation: Acute on chronic heart failure Has provider been notified: Yes 02/22/24 02:03 Consult to Nephrology Routine Consulting Provider: [facility] Reason for consultation: YUMIKO, cardiorenal syndrome DS: Diagnosis Discharge Diagnosis (1) Acute HFrEF (heart failure with reduced ejection fraction): Status: Acute DS: Summary Hospital Course Hospital Course: from initial hpi: 84 year old male with CAD s/p NSTEMI, cardiomyopathy s/p AICD in august 2020 at that time EF was 10 to 15%, most recent EF from december 2022 is 30 to 35 %, he has CKD baseline creatine around 2, chronic AFIB oncoumadin, HLD and COPD. He presents with weakness and progressive shortness of breath for weakness, has noted increased leg edema, PND, orthopnea and fatigue. He saw his PCP yesterday and was told he has PNA and directed to the ED for further eval. Work up in ED with CXR show pulmonary vascular congestion, BNP 3067, and Creatine is 3.08. Given Bumex IV 1 mg and Lasix IV 40 mg hospital course: Patient was admitted for acute on chronic systolic CHF. Was treated with IV Lasix infusion and Zaroxolyn and diuresed well. His shortness of breath significantly improved. He was seen by Cardiology who added Jardiance. For acute kidney injury on CKD 3 this was due to cardiorenal syndrome and patient improved with IV diuresis. For acute hypokalemia patient received replacement. For hypertension hydralazine was added. For chronic atrial fibrillation was continued on amiodarone, metoprolol, warfarin. For diabetes was continue on insulin sliding scale. For COPD remained stable. Patient is feeling better will be discharged home. Time Attestation Discharge Coordination Time (in mins): 37 Quality: Safe Use of Opioids Does Pt have an Active Cancer Diagnosis on the Problem List?: No Quality: Stroke Does the patient have a stroke diagnosis?: No Physical Exam Vital Signs: Vital Signs: Last Vital Signs Temp 99.1 F 02/26/24 07:20 Pulse 58 09/17/24 08:05 Resp 18 02/26/24 08:05 BP 153/66 H 02/26/24 07:20 Pulse Ox 95 02/26/24 07:20 O2 Del Method Room Air 02/26/24 07:20 O2 Flow Rate 2 02/24/24 00:00 BMI result Body Mass Index 32.5 Neck: Neck: Yes supple Resp: Auscultation: clear to auscultation bilaterally Cardio: Palpation: no palpable S3 Heart sounds: no rubs GI: Palpation (GI): Soft to palpation Auscultation: normal bowel sounds Neuro: Motor exam (neuro): no asterixis DS: Data Data Completed and Pending Labs on day of discharge: Laboratory Results - last 24 hr 02/26/24 07:19 PT 24.4 H INR 2.0 H Sodium 142 Potassium 2.7 L* Chloride 90 L Carbon Dioxide 37 H Anion Gap 18 BUN 55 H Creatinine 2.57 H Estim Creat Clear Calc 23.8 Estimated GFR 24 Random Glucose 107 Fasting Glucose 107 H Calcium 10.2 D Discharge Plan Discharge Anticipated Discharge Date/Time: 02/26/24 10:49 Patient Disposition: Home, Self-Care Discharge Diagnosis: CHF, YUMIKO Referrals: Dagoberto Childs ENGINE DISPATCHER-BC [Primary Care Provider] - 1 Week Discharge Medications: New hydralazine 25 mg Tablet 25 mg PO TID Qty: 270 0RF Protocol: Hold for SBP< HOLD for SBP < : 90 Jardiance 10 mg Tablet 10 mg PO DAILY Qty: 90 0RF Continued (DME) blood-glucose [place]OneTouch Ultra2 Meter[place] [facility] [place] .Route Qty: 1 0RF Rx Instructions: Use to check fasting blood sugar and a random sugar daily (DME) OneTouch Ultra Test Strip See Rx Instructions .Route Qty: 100 5RF Rx Instructions: Use to check fasting blood sugar and a random sugar daily (DME) lancets [Onetouch Delica Safety Lancet] 30 gauge misc See Rx Instructions .Route Qty: 100 5RF Rx Instructions: Use to check fasting blood sugar and a random sugar daily atorvastatin 40 mg tablet 40 mg PO DAILY 90 Days Qty: 90 1RF Breo Ellipta 100-25 mcg/dose blister with device 1 ea inhalation DAILY Qty: 180 1RF albuterol sulfate 90 mcg/actuation HFA aerosol inhaler 2 puff inhalation Q6H PRN (Reason: Shortness Of Breath) 30 Days Qty: 8.5 3RF furosemide 20 mg tablet 40 mg PO BID Qty: 120 3RF amiodarone 200 mg tablet 200 mg PO DAILY Qty: 90 3RF metoprolol succinate 25 mg tablet extended release 24 hr 25 mg PO DAILY sildenafil 100 mg tablet 100 mg PO DIRECTED PRN (Reason: Sexual Activity) Rx Instructions: TAKE 1 TABLET NEEDED BY MOUTH 30 MINUTES TO 4 HOURS BEFORE SEXUAL ACTIVITY warfarin 2 mg tablet 1 mg PO SUMOWEFR@1800 trazodone 100 mg tablet 100 mg PO BEDTIME PRN (Reason: Sleep) warfarin 2 mg tablet 2 mg PO @1799 Protocol: Dose Management Condition: Sunday (Week One) Dose/Route: 2 mg Instruction: 1 x 2 mg tablet Condition: Sunday Dose/Route: 2.5 mg Instruction: 1 x 2.5 mg tablet Condition: Sunday Dose/Route: 2 mg Instruction: 1 x 2 mg tablet Condition: Sunday Dose/Route: 5 mg Instruction: 2 x 2.5 mg tablets Condition: Dose/Route: 2.5 mg Instruction: 1 x 2.5 mg tablet Condition: Sunday Dose/Route: 2 mg Instruction: 1 x 2 mg tablet Condition: Sunday Dose/Route: 2.5 mg Instruction: 1 x 2.5 mg tablet Condition: Sunday (Week Two) Dose/Route: 2 mg Instruction: 1 x 2 mg tablet Condition: Sunday Dose/Route: 2.5 mg Instruction: 1 x 2.5 mg tablet Condition: Sunday Dose/Route: 2 mg Instruction: 1 x 2 mg tablet Condition: Sunday Dose/Route: 5 mg Instruction: 2 x 2.5 mg tablets Condition: Dose/Route: 2.5 mg Instruction: 1 x 2.5 mg tablet Condition: Sunday Dose/Route: 2 mg Instruction: 1 x 2 mg tablet Condition: Sunday Dose/Route: 2.5 mg Instruction: 1 x 2.5 mg tablet Protocol Text: Adjustment Start Date: Sunday12/07/20 INR Value: 2.5 INR Date: 12/07/20 Recheck Date: 12/21/20 Additional Instructions: pt aware to continue with routine dosing and repeat INR in 2 weeks. Discontinued prednisone 50 mg tablet 50 mg PO DAILY 5 Days Qty: 5 0RF doxycycline hyclate 100 mg capsule 100 mg PO BID 7 Days Qty: 14 0RF Diet: Advance to usual diet Activity on Discharge: As tolerated Stand Alone Forms: Patient Portal Discharge page Print Language: Iranian Care Plan Goals: manage chf Health Concerns: chf Plan of Treatment: continue lasix, low salt diet, follow up nephro, started hydralazine and jardiance Assessment: see above
[2024-02-26 11:06] VITALS: BP 116/59; PULSE 59; RESP 20; TEMP 36.9; O2SAT 93
[2024-02-26 11:23] LABS: Anion Gap 13 (12-20); Blood Urea Nitrogen 56 mg/dL (9-16); Calcium 9.8 mg/dL (8.4-10.2); Carbon Dioxide 39 mmol/L (22-29); Chloride 92 mmol/L (96-108); Estimated Glomerular Filt Rate 24; Glucose Random 228 mg/dL (60-115); Magnesium 2.3 mg/dL (1.6-2.6); Potassium 3.1 mmol/L (3.3-5.1); Sodium 141 mmol/L (135-145)
--- NOTE | 2024-02-26 13:18 | MHC.CM.PN ---
Second IMM given 02/25. Pt is medically cleared for discharge home self-care today, pt will transport [facility].
== END 2024-02-26 13:20 | disposition home or self-care (01) | DRG 291 ==
LOC: HO.ED 02-22 01:19 → HO.EDOVER 02-22 02:32 → HO.IMC 02-22 15:43
PROVIDERS: Admitting Provider Internal Medicine; Emergency Provider Internal Medicine; PCP Nurse Practitioner Family; Visit Provider Internal Medicine
DX: I13.0 Hypertensive heart and chronic kidney disease with heart failure and stage 1 through stage 4 chronic kidney disease, or unspecified chronic kidney disease (principal); I50.23 Acute on chronic systolic (congestive) heart failure; N17.9 Acute kidney failure, unspecified; I48.20 Chronic atrial fibrillation, unspecified; E87.3 Alkalosis; E87.6 Hypokalemia; E11.22 Type 2 diabetes mellitus with diabetic chronic kidney disease; I42.8 Other cardiomyopathies; I25.2 Old myocardial infarction; I25.10 Atherosclerotic heart disease of native coronary artery without angina pectoris; J44.9 Chronic obstructive pulmonary disease, unspecified; N18.30 Chronic kidney disease, stage 3 unspecified; F17.210 Nicotine dependence, cigarettes, uncomplicated; Z71.6 Tobacco abuse counseling; Z95.810 Presence of automatic (implantable) cardiac defibrillator; Z79.01 Long term (current) use of anticoagulants; Z79.899 Other long term (current) drug therapy
CPT/HCPCS: 36415; 80048; 80053; 82947; 83735; 83880; 84484; 85025; 85027; 85610; 93005; 93306; 99285; C1758; J1939; J1940; J3480; Q9957

== ENCOUNTER → 2024-02-22 02:27 | Outpatient (BNV) | payer OTHER, MEDICAID, SELFPAY | PROVIDERS: Admitting Provider Internal Medicine; Emergency Provider Internal Medicine; PCP Nurse Practitioner Family; Visit Provider Internal Medicine Cardiovascular Disease | DX: I50.21 Acute systolic (congestive) heart failure (principal); I35.2 Nonrheumatic aortic (valve) stenosis with insufficiency; I35.8 Other nonrheumatic aortic valve disorders; I36.1 Nonrheumatic tricuspid (valve) insufficiency | CPT/HCPCS: 93306; 99223; 99233 ==

== ENCOUNTER → 2024-02-22 02:27 | Outpatient (BNV) | payer OTHER, MEDICAID, SELFPAY | PROVIDERS: Admitting Provider Internal Medicine; Emergency Provider Internal Medicine; PCP Nurse Practitioner Family; Visit Provider Internal Medicine | DX: I50.21 Acute systolic (congestive) heart failure (principal) | CPT/HCPCS: 99223; 99232; 99239; 99499 ==

== ENCOUNTER → 2024-02-22 02:27 | Outpatient (BNV) | payer OTHER, MEDICAID, SELFPAY | PROVIDERS: Admitting Provider Internal Medicine; Emergency Provider Internal Medicine; PCP Nurse Practitioner Family; Visit Provider Internal Medicine Nephrology | DX: N17.9 Acute kidney failure, unspecified (principal); N18.9 Chronic kidney disease, unspecified | CPT/HCPCS: 99223; 99232 ==

== ENCOUNTER 2024-03-03 14:30 | Outpatient (AMB) | payer OTHER, MEDICAID, SELFPAY ==
[2024-03-03 14:32] VITALS: BP 112/60; PULSE 59; O2SAT 93; BMI 28.3
--- NOTE | 2024-03-03 14:32 | A.OFFPC_ITS ---
Vital Signs 03/03/24 14:32 Height 5 ft 7 in Weight 181 lb BMI 28.3 BP 112/60 Blood Pressure Location Rt brachial Position Sitting Pulse 59 Pulse Source Pulse Oximeter Pulse Oximetry (%) 93 Intake Visit Reasons: HDF f/up Intake Note: pt is here for HDF f/up Training Administrator Required: No Accompanied by: Self / Same As Patient Allergies lisinopril Allergy (Intermediate, Verified 03/03/24 15:58) Rash Medication List - Last Reconciled 03/03/24 by Dagoberto Childs, TECHNICIAN PREVENTATIVE MEDICINE- albuterol sulfate 90 mcg/actuation 2 puffs inhalation Q6H PRN 30 days amiodarone 200 mg PO DAILY atorvastatin 40 mg PO DAILY 90 days blood sugar diagnostic ([place] Ultra Test strips) Use to check fasting blood sugar and a random sugar daily blood-glucose meter ([place] Ultra2 Meter) Use to check fasting blood sugar and a random sugar daily Breo Ellipta 100-25 mcg/dose (fluticasone furoate-vilanterol) 1 ea inhalation DAILY NS empagliflozin (Jardiance) 10 mg PO DAILY furosemide 40 mg (2 x 20 mg) PO BID hydralazine 25 mg See Protocol PO TID lancets ([employer] Delica Safety Lancet) Use to check fasting blood sugar and a random sugar daily metoprolol succinate ER 25 mg PO DAILY sildenafil 100 mg PO DIRECTED PRN trazodone 100 mg PO BEDTIME PRN warfarin 1 mg PO SUMOWETHFR@1800 warfarin 2 mg See Protocol PO TUSA@1800 Tobacco use date assessed: 10/03/23 Fall risk assessment: No Falls in past year Last assessed Fall Risk: 03/03/24 Dental Screening Dental Screen Date: 10/03/23 HPI HDF f/up HPI Details Pt was seen in the ER on 02/20 c/o shortness of breath. Chest XR showed cardiomegaly with vascular congestion and pulmonary edema. BNP was 3067. Creatinine was 3.08. Pt was given IV bumex and lasix. He was admitted for acute on chronic systolic CHF. Pt was treated with IV lasix and zaroxolyn. Pt diuresed well and his shortness of breath improved. Pt was seen by cardio who added jardiance. Pt had acute kidney injury on CKD 3 which was due to cardiorenal syndrome, patient improved with IV diuresis. Pt also had acute hypokalemia and received replacement. He was started on hydralazine for hypertension. Pt reports ongoing weakness and shortness of breath. Will set pt up with VNA/home PT. Will order labs and chest XR. Pt has a hx of COPD. Will refer to pulmonology. Denies fever, chills, and chest pain. [facility] Medical History Atherosclerotic cardiovascular disease Fatigue High triglycerides Erectile dysfunction Typical atrial flutter Nonischemic cardiomyopathy Hearing loss COPD (chronic obstructive pulmonary disease) Chronic a-fib Atrial fibrillation Elevated blood sugar Asthma Hyperlipidemia HTN (hypertension) Stroke Surgical History Presence of single chamber implantable cardioverter-defibrillator (ICD) History of appendectomy History of tonsillectomy Family History Father Unknown family medical history Mother Unknown family medical history Social History Household Members: None Housing: Apartment Are you a primary resident care coordinator to a significant other at home: No Do you presently have visiting nurse or other home services: Yes (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 1. Little interest or pleasure in doing things: not at all 2. Feeling down, depressed, or hopeless: not at all 3. Trouble falling or staying asleep, or sleeping too much: not at all 4. Feeling tired or having little energy: not at all 5. Poor appetite or overeating: not at all 6. Feeling bad about yourself - or that you are a failure or have let yourself or your family down: not at all 7. Trouble concentrating on things, such as reading the newspaper or watching television: not at all 8. Moving or speaking so slowly that other people could have noticed. Or the opposite - being so fidgety or restless that you have been moving around a lot more than usual: not at all 9. Thoughts that you would be better off or of hurting yourself in some way: not at all Total score: 0 Depression Screening Interpretation: Negative Depression Screening Done: Yes 02439 - PHQ-9 Billing: Yes Source: Developed by Drs. James Kamara, Irina Flaherty, Gucci Zapata and colleagues, with an educational brayan from [employer]. Thrive Questionnaire Date Thrive assessed: 03/03/24 I am a: Patient What is your living situation today?: I choose not to answer this question Within the past 12 months, did the food you bought not last and you didn't have the money to get more?: I choose not to answer this question Within the past 12 months, did you worry whether your food would run out before you got money to buy more?: I choose not to answer this question Do you have trouble paying for medicines?: I choose not to answer this question Do you have trouble getting transportation to medical appointments?: I choose not to answer this question Do you have trouble paying your heating and electricity bill?: I choose not to answer this question Do you have trouble taking care of your child, family member or friend?: I choose not to answer this question Do you have trouble with day-to-day activities such as bathing, preparing meals, shopping, managing finances, etc.?: I choose not to answer this question Are you currently unemployed and looking for a job?: No Are you interested in more education?: I choose not to answer this question Please select the resources that you would like help with: None Currently or been in a relationship where the following occur: I choose not to answer THRIVE Score: 0 AUDIT C Alcohol Use Questionnaire (AUDIT-C) 1. How often do you have a drink containing alcohol?: Never 3. How often do you have six or more drinks on one occasion?: Never Total Score: 0 Score Reviewed/Action Taken: Yes RYANNE-7 AMB Questionnaire RYANNE-7 Date RYANNE - 7 assessed: 03/03/24 Feeling nervous, anxious, or on edge: 0 = Not at all Not being able to stop or control worryin = Not at all Worrying too much about different things: 0 = Not at all Trouble relaxin = Not at all Being so restless that it is hard to sit still: 0 = Not at all Becoming easily annoyed or irritable: 0 = Not at all Feeling afraid as if something awful might happen: 0 = Not at all Total RYANNE-7 score (0-4 normal; 5-9 mild; 10-14 moderate; 15-21 severe): 0 Source: Developed by Drs. James Kamara, Irina Flaherty, Gucci Zapata and colleagues, with an educational brayan from [employer]. RYANNE-7 Assessment Billing RYANNE-7 Assessment Tool: RYANNE-7 Assessment 82206 Review of Systems Const Reports as per HPI Physical exam (Primary Care) Vital Signs: Last Vital Signs Pulse 59 03/03/24 14:32 BP 112/60 03/03/24 14:32 Pulse Ox 93 03/03/24 14:32 BMI result Body Mass Index 28.3 Tobacco/Smoking Status: Tobacco use Status Tobacco use date assessed 10/03/23 03/03/24 14:34 Patient Tobacco Use Status Current everyday Tobacco 03/03/24 14:34 e-Cigarette/Vaping Use Never Used 03/03/24 14:34 PHQ-9: PHQ-9 Score PHQ-9: Total score 0 03/03/24 15:12 Depression Screening Interpretation: Negative Thrive Assessment: Date of Thrive Assessment Date Thrive assessed 03/03/24 03/03/24 14:34 Currently or been in a relationship where the following occur: I choose not to answer Const General: cooperative Orientation/consciousness: patient oriented x3 Resp Other: faint scattered wheezes though moving air bilat Effort & Inspection: normal respiratory effort Cardio Rate: regular rate Rhythm: regular rhythm Heart sounds: S1 normal heart sound present and S2 normal heart sound present Neuro General: patient oriented x3 Psych Appearance: grossly normal Mental Status: mental status grossly normal Speech and movement: Normal speech and movement present Affect: normal affect Attitude: cooperative Thought process: Normal thought process present Thought content: Normal thought content present Insight: Good insight present (Psych) Judgement: Good judgement present (Psych) Assessment and Plan Assessment & Plan (1) CHF (congestive heart failure): Code(s): I50.9 - Heart failure, unspecified Plan: Labs and chest XR ordered, following up with cardiology, any worsening symptoms ER (2) CKD (chronic kidney disease) stage 4, GFR 15-29 ml/min: Code(s): N18.4 - Chronic kidney disease, stage 4 (severe) Plan: Labs ordered, following up with nephrology (3) Elevated serum creatinine: Code(s): R79.89 - Other specified abnormal findings of blood chemistry Plan: Labs ordered (4) COPD (chronic obstructive pulmonary disease): Code(s): J44.9 - Chronic obstructive pulmonary disease, unspecified Plan: referred to pulmonary Plan The patient agreed to the use of a medical historian for this encounter. Scribed for JESSY Urban by Candace Saez medical historian, on 03/03/2024 at 14:55 EST. Orders: Orders B Type Natriuretic Peptide Today I50.9 - Heart failure, unspecified, N18.4 - Chronic kidney disease, stage 4 (severe), R79.89 - Other specified abnormal findings of blood chemistry Complete Blood Count Auto Diff Today I50.9 - Heart failure, unspecified, N18.4 - Chronic kidney disease, stage 4 (severe), R79.89 - Other specified abnormal findings of blood chemistry Comprehensive Met. Panel Today I50.9 - Heart failure, unspecified, N18.4 - Chronic kidney disease, stage 4 (severe), R79.89 - Other specified abnormal findings of blood chemistry TSH reflex Free T4 Today I50.9 - Heart failure, unspecified, N18.4 - Chronic kidney disease, stage 4 (severe), R79.89 - Other specified abnormal findings of blood chemistry XR chest 2V Today I50.9 - Heart failure, unspecified Referrals Pulmonology Referral J44.9 - Chronic obstructive pulmonary disease, unspecified Coding Level of Care Code Est Pt Level 3 (85479) Diagnoses CHF (congestive heart failure) I50.9 CKD (chronic kidney disease) stage 4, GFR 15-29 ml/min N18.4 Elevated serum creatinine R79.89 COPD (chronic obstructive pulmonary disease) J44.9 Additional Codes RYANNE-7 Assessment Billing - RYANNE-7 Assessment Tool: RYANNE-7 Assessment [id number] ([id number])
== END 2024-03-03 16:38 | disposition home or self-care (01) ==
PROVIDERS: PCP Nurse Practitioner Family; Visit Provider Nurse Practitioner Family
DX: I50.9 Heart failure, unspecified (principal); N18.4 Chronic kidney disease, stage 4 (severe); R79.89 Other specified abnormal findings of blood chemistry; J44.9 Chronic obstructive pulmonary disease, unspecified

== ENCOUNTER → 2024-03-03 14:30 | Outpatient (BNVA) | payer OTHER, SELFPAY | PROVIDERS: PCP Nurse Practitioner Family; Visit Provider Nurse Practitioner Family | DX: I50.9 Heart failure, unspecified (principal); N18.4 Chronic kidney disease, stage 4 (severe); R79.89 Other specified abnormal findings of blood chemistry; J44.9 Chronic obstructive pulmonary disease, unspecified | CPT/HCPCS: 96127; 99212 ==

== ENCOUNTER → 2024-03-04 23:59 | Outpatient (BNV) | payer OTHER, SELFPAY ==
--- NOTE | 2024-03-07 17:36 | MHC.OFFVIS ---
Intake Visit Reasons: Remote HF monitoring- [employer] Allergies lisinopril Allergy (Intermediate, Verified 03/03/24 15:58) Rash [facility] Medical History Atherosclerotic cardiovascular disease Fatigue High triglycerides Erectile dysfunction Typical atrial flutter Nonischemic cardiomyopathy Hearing loss COPD (chronic obstructive pulmonary disease) Chronic a-fib Atrial fibrillation Elevated blood sugar Asthma Hyperlipidemia HTN (hypertension) Stroke Surgical History Presence of single chamber implantable cardioverter-defibrillator (ICD) History of appendectomy History of tonsillectomy Family History Father Unknown family medical history Mother Unknown family medical history Social History Household Members: None Housing: Apartment Are you a primary child care center assistant director to a significant other at home: No Do you presently have visiting nurse or other home services: Yes (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 Recent hospital admission for CHF. [id number] Cardiac Device Interrogation, cardio physiologic monitor Procedure code (CPT) selection complete Assessment & Plan Assessment & Plan (1) ICD (implantable cardioverter-defibrillator) in place: Code(s): Z95.810 - Presence of automatic (implantable) cardiac defibrillator Category: Medical Plan: Orders: Orders AMB Cardiac Device Follow-up 03/04/24 Z95.810 - Presence of automatic (implantable) cardiac defibrillator Coding Level of Care Code Procedure Only Diagnoses ICD (implantable cardioverter-defibrillator) in place Z95.810 CPT Codes Cardiac Device Check - Cardiac Device 15: [id number] Cardiac Device Interrogation, cardio physiologic monitor ([id number])
== END ==
PROVIDERS: PCP Nurse Practitioner Family; Visit Provider Internal Medicine Cardiovascular Disease
DX: I50.9 Heart failure, unspecified (principal); Z95.810 Presence of automatic (implantable) cardiac defibrillator
CPT/HCPCS: 93297

== ENCOUNTER 2024-03-06 07:56 | Outpatient (REF) | payer OTHER, SELFPAY ==
--- NOTE | ~2024-03-06 | XR_ITS ---
EXAMINATION: XR CHEST 2 VIEWS CLINICAL INFORMATION: I50.9 - Heart failure, unspecified COMPARISON: 03/06/2024 TECHNIQUE: 2 views of the chest were obtained. FINDINGS: No infiltrate Notable cardiomegaly. AICD in place. It changes of interstitial pulmonary edema without measurable pleural fluid. XR/XR chest 2V IMPRESSION: Mild interstitial pulmonary edema. Electronically signed by: Benja Almanzar MD 04/28/2024 06:16 PM JORDANA
[2024-03-06 10:05] LABS: MANUAL DIFF FLAG NO
[2024-03-06 10:14] LABS: INTERNATIONAL NORM RATIO 2.6 (0.9-1.1); Prothrombin Time 29.8 SEC (10.9-12.4)
[2024-03-06 10:15] LABS: Basophils Percent Auto 0.4 % (0-2); Eosinophils Absolute Auto 0.7 X10*3/uL (0.0-0.4); Eosinophils Percent Auto 7.3 % (0-4); Hematocrit 32.7 % (42.0-52.0); Hemoglobin 11.1 g/dl (14.0-18.0); Imm Gran Abs Auto 0.06 X10*3/uL (0.00-0.03); Imm Gran Pct Auto 0.6 % (0.0-0.4); Lymphocytes Absolute Auto 0.6 X10*3/uL (1.2-4.9); Lymphocytes Percent Auto 6.5 % (20-40); Mean Corpuscular HGB Conc 33.9 g/dl (31.0-36.0); Mean Corpuscular Hemoglobin 31.4 pg (27.0-33.0); Mean Corpuscular Volume 92.6 fL (80.0-98.0); Mean Platelet Volume 13.2 fL (9.4-12.4); Monocytes Absolute Auto 0.9 X10*3/uL (0.1-1.2); Monocytes Percent Auto 9.1 % (2-11); Neutrophils Absolute Auto 7.2 x10*3/uL (2.0-8.3); Neutrophils Percent Auto 76.1 % (45-73); Platelet Count 164 X10*3/uL (160-400); Red Blood Count 3.53 X10*6/uL (4.60-5.80); Red Cell Distribution Width 15.8 % (11.0-16.0); White Blood Count 9.4 X10*3/uL (4.8-10.8)
[2024-03-06 10:17] LABS: B Type Natriuretic Peptide 2820 pg/mL (<100)
[2024-03-06 10:38] LABS: Alanine Aminotransferase 79 U/L (0-40); Albumin Level 3.2 g/dL (3.5-5.0); Alkaline Phosphatase 302 U/L (39-117); Anion Gap 11 (12-20); Aspartate Amino Transferase 86 U/L (5-37); Bilirubin Total 2.1 mg/dL (0.0-1.0); Blood Urea Nitrogen 47 mg/dL (9-16); Calcium 8.7 mg/dL (8.4-10.2); Carbon Dioxide 31 mmol/L (22-29); Chloride 96 mmol/L (96-108); Estimated Glomerular Filt Rate 25; Glucose Random 145 mg/dL (60-115); Potassium 3.4 mmol/L (3.3-5.1); Sodium 135 mmol/L (135-145); Total Protein 6.4 g/dL (6.5-8.0)
[2024-03-06 10:39] LABS: TSH reflex Free T4 0.98 uIU/mL (0.32-4.0)
== END 2024-03-06 07:57 | disposition home or self-care (01) ==
LOC: HO.HMGCX 07:56
PROVIDERS: PCP Nurse Practitioner Family; Visit Provider Nurse Practitioner Family
DX: I50.9 Heart failure, unspecified (principal); N18.4 Chronic kidney disease, stage 4 (severe); R79.89 Other specified abnormal findings of blood chemistry; Z79.01 Long term (current) use of anticoagulants
CPT/HCPCS: 36415; 71046; 80053; 83880; 84443; 85025; 85610

== ENCOUNTER 2024-03-13 08:01 | Outpatient (REF) | payer OTHER, SELFPAY ==
--- NOTE | ~2024-03-13 | XR_ITS ---
EXAMINATION: XR CHEST 2 VIEWS CLINICAL INFORMATION: I50.9 - Heart failure, unspecified COMPARISON: 03/06/2024 TECHNIQUE: 2 views of the chest were obtained. FINDINGS: No infiltrate Notable cardiomegaly. AICD in place. It changes of interstitial pulmonary edema without measurable pleural fluid. XR/XR chest 2V IMPRESSION: Mild interstitial pulmonary edema. Electronically signed by: Benja Almanzar MD 04/28/2024 06:16 PM JORDANA
[2024-03-13 10:03] LABS: INTERNATIONAL NORM RATIO 2.9 (0.9-1.1); Prothrombin Time 33.4 SEC (10.9-12.4)
== END 2024-03-13 08:02 | disposition home or self-care (01) ==
LOC: HO.HMGCX 08:01
PROVIDERS: PCP Nurse Practitioner Family; Visit Provider Nurse Practitioner Family
DX: I50.9 Heart failure, unspecified (principal); Z79.01 Long term (current) use of anticoagulants
CPT/HCPCS: 36415; 71046; 85610

== ENCOUNTER 2024-03-17 13:06 | Outpatient (REF) | payer OTHER, SELFPAY ==
[2024-03-17 16:26] LABS: B Type Natriuretic Peptide 2990 pg/mL (<100)
[2024-03-17 16:31] LABS: Alanine Aminotransferase 70 U/L (0-40); Albumin Level 3.1 g/dL (3.5-5.0); Alkaline Phosphatase 299 U/L (39-117); Anion Gap 14 (12-20); Aspartate Amino Transferase 85 U/L (5-37); Bilirubin Total 3.1 mg/dL (0.0-1.0); Blood Urea Nitrogen 28 mg/dL (9-16); Carbon Dioxide 30 mmol/L (22-29); Chloride 97 mmol/L (96-108); Estimated Glomerular Filt Rate 30; Glucose Random 126 mg/dL (60-115); Magnesium 2.5 mg/dL (1.6-2.6); Potassium 3.3 mmol/L (3.3-5.1); Sodium 138 mmol/L (135-145); Total Protein 6.6 g/dL (6.5-8.0)
[2024-03-17 16:36] LABS: Basophils Absolute Auto 0.1 X10*3/uL (0.0-0.2); Basophils Percent Auto 0.6 % (0-2); Eosinophils Absolute Auto 0.8 X10*3/uL (0.0-0.4); Eosinophils Percent Auto 9.8 % (0-4); Hematocrit 33.6 % (42.0-52.0); Imm Gran Abs Auto 0.04 X10*3/uL (0.00-0.03); Imm Gran Pct Auto 0.5 % (0.0-0.4); Lymphocytes Absolute Auto 0.5 X10*3/uL (1.2-4.9); MANUAL DIFF FLAG SCAN; Mean Corpuscular HGB Conc 35.7 g/dl (31.0-36.0); Mean Corpuscular Hemoglobin 32.1 pg (27.0-33.0); Mean Corpuscular Volume 89.8 fL (80.0-98.0); Mean Platelet Volume 13.6 fL (9.4-12.4); Monocytes Absolute Auto 0.6 X10*3/uL (0.1-1.2); Monocytes Percent Auto 6.7 % (2-11); Neutrophils Absolute Auto 6.4 x10*3/uL (2.0-8.3); Neutrophils Percent Auto 76.4 % (45-73); PLT CLUMP 1; Red Blood Count 3.74 X10*6/uL (4.60-5.80); Red Cell Distribution Width 16.7 % (11.0-16.0); SCAN SMEAR FLAG 1
[2024-03-17 17:08] LABS: Platelet Count 146 X10*3/uL (160-400); SLIDE REVIEW VERIFIED; White Blood Count 8.3 X10*3/uL (4.8-10.8)
== END 2024-03-17 13:07 | disposition home or self-care (01) ==
LOC: HO.HMGCLDS 13:06
PROVIDERS: PCP Nurse Practitioner Family; Visit Provider Nurse Practitioner Family
DX: I50.9 Heart failure, unspecified (principal)
CPT/HCPCS: 36415; 80053; 83735; 83880; 85025

== ENCOUNTER 2024-03-27 07:44 | Outpatient (REF) | payer OTHER, SELFPAY ==
[2024-03-27 10:25] LABS: INTERNATIONAL NORM RATIO 3.9 (0.9-1.1); Prothrombin Time 45.7 SEC (10.9-12.4)
[2024-03-27 11:00] LABS: B Type Natriuretic Peptide 2823 pg/mL (<100)
[2024-03-27 11:07] LABS: Anion Gap 12 (12-20); Blood Urea Nitrogen 31 mg/dL (9-16); Calcium 8.9 mg/dL (8.4-10.2); Carbon Dioxide 30 mmol/L (22-29); Chloride 102 mmol/L (96-108); Estimated Glomerular Filt Rate 36; Glucose Random 120 mg/dL (60-115); Potassium 3.5 mmol/L (3.3-5.1); Sodium 140 mmol/L (135-145)
== END 2024-03-27 07:45 | disposition home or self-care (01) ==
LOC: HO.HMGCLDS 07:44
PROVIDERS: Internal Medicine Cardiovascular Disease; PCP Nurse Practitioner Family; Visit Provider Nurse Practitioner Family
DX: R00.1 Bradycardia, unspecified (principal); Z79.01 Long term (current) use of anticoagulants; I50.21 Acute systolic (congestive) heart failure; I50.9 Heart failure, unspecified
CPT/HCPCS: 36415; 80048; 83880; 85610

== ENCOUNTER 2024-04-01 09:54 | Outpatient (AMB) | payer OTHER, MEDICAID, SELFPAY ==
[2024-04-01 10:07] VITALS: BP 110/60; PULSE 56; O2SAT 95
--- NOTE | 2024-04-01 10:07 | A.OFFPC_ITS ---
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 Accompanied by: Self / Same As Patient Allergies lisinopril Allergy (Intermediate, Verified 04/01/24 12:30) Rash Medication List - Last Reconciled 04/01/24 by Dagoberto Childs, [employer] OPERATOR INSULATION- albuterol sulfate 90 mcg/actuation 2 puffs inhalation Q6H PRN 30 days amiodarone 200 mg PO DAILY atorvastatin 40 mg PO DAILY 90 days blood sugar diagnostic (Blink for iPhone and Android Ultra Test strips) Use to check fasting blood sugar and a random sugar daily blood-glucose meter (Blink for iPhone and Android Ultra2 Meter) Use to check fasting blood sugar and a random sugar daily Breo Ellipta 100-25 mcg/dose (fluticasone furoate-vilanterol) 1 ea inhalation DAILY NS empagliflozin (Jardiance) 10 mg PO DAILY furosemide 60 mg PO DAILY hydralazine 25 mg See Protocol PO TID lancets (Aunt Kitchenuch Delica Safety Lancet) Use to check fasting blood sugar and a random sugar daily metoprolol succinate ER 25 mg PO DAILY sildenafil 100 mg PO DIRECTED PRN trazodone 100 mg PO BEDTIME PRN warfarin 1 mg PO SUMOWETHFR@1800 warfarin 2 mg See Protocol PO TUSA@1800 Tobacco use date assessed: 04/01/24 Fall risk assessment: No Falls in past year Last assessed Fall Risk: 04/01/24 Dental Screening Dental Screen Date: 04/01/24 HPI 6 month follow up HPI Details Pt is a diabetic, on a statin. A1C in office today is 6.4. Due for microalbumin in the near future. Denies polyuria, polydipsia, and neuropathy. Pt denies any signs and symptoms of hypoglycemia and does know how to correct it. ongoing CHF. Pt reports decreasing his lasix from 60mg bid to 40mg in the am. I explained importance of this medication. I will have him take 60mg in the am, and 20mg in the late afternoon, i dont want to pee all day. Pt reports that his breathing has improved since he was in the hospital. He reports intermittent SOB, but it disappears. Pt is following up with cardiology and nephrology. [facility] Medical History Atherosclerotic cardiovascular disease Fatigue High triglycerides Erectile dysfunction Typical atrial flutter Nonischemic cardiomyopathy Hearing loss COPD (chronic obstructive pulmonary disease) Chronic a-fib Atrial fibrillation Elevated blood sugar Asthma Hyperlipidemia HTN (hypertension) Stroke Surgical History Presence of single chamber implantable cardioverter-defibrillator (ICD) History of appendectomy History of tonsillectomy Family History Father Unknown family medical history Mother Unknown family medical history Social History Household Members: None Housing: Apartment Are you a primary healthcare customer service to a significant other at home: No 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) Alcohol intake: current Alcohol intake frequency: holidays/special occasions only Patient Tobacco Use Status: Current everyday Tobacco user Cigarettes Per Day: 1 Years Smoked: 70 +/- e-Cigarette/Vaping Use: Never Used Second Hand Smoke Exposure: No Advance Directives Date on File: 08/18/20 service: No Current occupational status: retired Cognitive needs: No Hearing needs: No Vision needs: No Questionnaire Thrive Questionnaire Date Thrive assessed: 03/03/24 I am a: Patient What is your living situation today?: I choose not to answer this question Within the past 12 months, did the food you bought not last and you didn't have the money to get more?: I choose not to answer this question Within the past 12 months, did you worry whether your food would run out before you got money to buy more?: I choose not to answer this question Do you have trouble paying for medicines?: I choose not to answer this question Do you have trouble getting transportation to medical appointments?: I choose not to answer this question Do you have trouble paying your heating and electricity bill?: I choose not to answer this question Do you have trouble taking care of your child, family member or friend?: I choose not to answer this question Do you have trouble with day-to-day activities such as bathing, preparing meals, shopping, managing finances, etc.?: I choose not to answer this question Are you interested in more education?: I choose not to answer this question Please select the resources that you would like help with: None Currently or been in a relationship where the following occur: I choose not to answer THRIVE Score: 0 RYANNE-7 AMB Questionnaire RYANNE-7 Date RYANNE - 7 assessed: 03/03/24 Source: Developed by Drs. James Kamara, Irina Flaherty, Gucci Zapata and colleagues, with an educational brayan from [employer]. Review of Systems Const Reports as per HPI Physical exam (Primary Care) Vital Signs: Last Vital Signs Pulse 56 04/01/24 10:07 BP 110/60 04/01/24 10:07 Pulse Ox 95 04/01/24 10:07 Tobacco/Smoking Status: Tobacco use Status Tobacco use date assessed 04/01/24 04/01/24 10:07 Patient Tobacco Use Status Current everyday Tobacco 04/01/24 10:07 e-Cigarette/Vaping Use Never Used 04/01/24 10:07 Thrive Assessment: Date of Thrive Assessment Date Thrive assessed 03/03/24 04/01/24 10:07 Currently or been in a relationship where the following occur: I choose not to answer Const General: cooperative Orientation/consciousness: patient oriented x3 Limitations: wheelchair Resp Other: very faint crackles to bases, otherwise moving air bilat Effort & Inspection: normal respiratory effort Cardio Rate: bradycardic Heart sounds: S1 normal heart sound present, S2 normal heart sound present and Murmur heart sound present systolic (faint) Neuro General: patient oriented x3 Extrem Right lower extremity: no edema Left lower extremity: no edema Psych Appearance: grossly normal Mental Status: mental status grossly normal Speech and movement: Normal speech and movement present Affect: normal affect Attitude: cooperative Thought process: Normal thought process present Thought content: Normal thought content present Insight: Good insight present (Psych) Judgement: Good judgement present (Psych) Results AMB Hemoglobin A1c AMB Hemoglobin A1c 6.4 % Last Edit by Heri Choudhury CMA on 04/01/24 11: 00 Results Reviewed Results Reviewed: Laboratory Last Values Hgb A1c (Clinic) 6.4 % (4.0-6.0) H 04/01/24 10:59 Coding Level of Care Code Est Pt Level 3 (63945) Diagnoses Diabetes E11.9 CHF (congestive heart failure) I50.9 Assessment & Plan Assessment & Plan (1) Diabetes: Code(s): E11.9 - Type 2 diabetes mellitus without complications Category: Medical Plan: controlled (2) CHF (congestive heart failure): Code(s): I50.9 - Heart failure, unspecified Category: Medical Plan: will recheck BNP, increasing lasix to 60mg in am and 20mg late afternoon, pt will cont to weigh himself, call with questions or concerns. Knows to go to the ER with sever symptoms Plan The patient agreed to the use of a medical translator for this encounter. Scribed for JESSY Urban by Candace Saez medical translator, on 04/01/2024 at 10:35 EST. Orders: Orders Comprehensive Met. Panel Today E11.9 - Type 2 diabetes mellitus without complications, I50.9 - Heart failure, unspecified Complete Blood Count Auto Diff Today E11.9 - Type 2 diabetes mellitus without complications, I50.9 - Heart failure, unspecified AMB Hemoglobin A1c Today E11.9 - Type 2 diabetes mellitus without complications B Type Natriuretic Peptide Today E11.9 - Type 2 diabetes mellitus without complications, I50.9 - Heart failure, unspecified
== END 2024-04-01 14:51 | disposition home or self-care (01) ==
PROVIDERS: PCP Nurse Practitioner Family; Visit Provider Nurse Practitioner Family
DX: E11.9 Type 2 diabetes mellitus without complications (principal); I50.9 Heart failure, unspecified

== ENCOUNTER → 2024-04-01 09:54 | Outpatient (BNVA) | payer OTHER, MEDICAID, SELFPAY | PROVIDERS: PCP Nurse Practitioner Family; Visit Provider Nurse Practitioner Family ==

== ENCOUNTER 2024-04-01 10:52 | Outpatient (REF) | payer OTHER, MEDICAID, SELFPAY ==
[2024-04-01 13:11] LABS: MANUAL DIFF FLAG NO
[2024-04-01 13:29] LABS: Prothrombin Time 35.1 SEC (10.9-12.4)
[2024-04-01 13:38] LABS: Basophils Absolute Auto 0.1 X10*3/uL (0.0-0.2); Basophils Percent Auto 0.7 % (0-2); Eosinophils Absolute Auto 0.1 X10*3/uL (0.0-0.4); Eosinophils Percent Auto 1.7 % (0-4); Hematocrit 33.7 % (42.0-52.0); Hemoglobin 11.7 g/dl (14.0-18.0); Imm Gran Abs Auto 0.03 X10*3/uL (0.00-0.03); Imm Gran Pct Auto 0.4 % (0.0-0.4); Lymphocytes Absolute Auto 0.7 X10*3/uL (1.2-4.9); Lymphocytes Percent Auto 10.6 % (20-40); Mean Corpuscular HGB Conc 34.7 g/dl (31.0-36.0); Mean Corpuscular Hemoglobin 30.9 pg (27.0-33.0); Mean Corpuscular Volume 88.9 fL (80.0-98.0); Mean Platelet Volume 12.6 fL (9.4-12.4); Monocytes Absolute Auto 0.8 X10*3/uL (0.1-1.2); Monocytes Percent Auto 11.4 % (2-11); Neutrophils Absolute Auto 5.3 x10*3/uL (2.0-8.3); Neutrophils Percent Auto 75.2 % (45-73); Platelet Count 219 X10*3/uL (160-400); Red Blood Count 3.79 X10*6/uL (4.60-5.80); Red Cell Distribution Width 18.8 % (11.0-16.0)
[2024-04-01 13:43] LABS: Alanine Aminotransferase 46 U/L (0-40); Albumin Level 3.1 g/dL (3.5-5.0); Alkaline Phosphatase 324 U/L (39-117); Anion Gap 14 (12-20); Aspartate Amino Transferase 75 U/L (5-37); Bilirubin Total 2.2 mg/dL (0.0-1.0); Blood Urea Nitrogen 29 mg/dL (9-16); Calcium 9.1 mg/dL (8.4-10.2); Carbon Dioxide 29 mmol/L (22-29); Chloride 101 mmol/L (96-108); Estimated Glomerular Filt Rate 35; Glucose Random 93 mg/dL (60-115); Potassium 3.7 mmol/L (3.3-5.1); Sodium 140 mmol/L (135-145); Total Protein 6.7 g/dL (6.5-8.0)
[2024-04-01 14:02] LABS: B Type Natriuretic Peptide 3032 pg/mL (<100)
== END 2024-04-01 10:53 | disposition home or self-care (01) ==
LOC: HO.HMGCLR 10:52
PROVIDERS: PCP Nurse Practitioner Family; Visit Provider Nurse Practitioner Family
DX: E11.9 Type 2 diabetes mellitus without complications (principal); I50.9 Heart failure, unspecified; Z79.01 Long term (current) use of anticoagulants
CPT/HCPCS: 36415; 80053; 83036; 83880; 85025; 85610; 99212

== ENCOUNTER → 2024-04-05 23:59 | Outpatient (BNV) | payer OTHER, SELFPAY ==
--- NOTE | 2024-04-14 20:42 | MHC.OFFVIS ---
Intake Visit Reasons: Remote HF monitoring- [employer] Allergies lisinopril Allergy (Intermediate, Verified 04/01/24 12:30) Rash [facility] Medical History Atherosclerotic cardiovascular disease Fatigue High triglycerides Erectile dysfunction Typical atrial flutter Nonischemic cardiomyopathy Hearing loss COPD (chronic obstructive pulmonary disease) Chronic a-fib Atrial fibrillation Elevated blood sugar Asthma Hyperlipidemia HTN (hypertension) Stroke Surgical History Presence of single chamber implantable cardioverter-defibrillator (ICD) History of appendectomy History of tonsillectomy Family History Father Unknown family medical history Mother Unknown family medical history Social History Household Members: None Housing: Apartment Are you a primary career development consultant to a significant other at home: No Do you presently have 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 Ongoing fluid overload. [id number] Device Interrogation, cardiac physiologic monitor system Procedure code (CPT) selection complete Assessment & Plan Assessment & Plan (1) ICD (implantable cardioverter-defibrillator) in place: Code(s): Z95.810 - Presence of automatic (implantable) cardiac defibrillator Category: Medical Plan Medications: Discontinued torsemide Discontinued Reason: Insurance Denied 40 mg PO DAILY 60 days 60 tabs 0RF Coding Level of Care Code Procedure Only Diagnoses ICD (implantable cardioverter-defibrillator) in place Z95.810 CPT Codes Cardiac Device Check - Cardiac Device 10: [id number] Device Interrogation, cardiac physiologic monitor system ([id number])
== END ==
PROVIDERS: PCP Nurse Practitioner Family; Visit Provider Internal Medicine Cardiovascular Disease
DX: Z45.09 Encounter for adjustment and management of other cardiac device (principal)
CPT/HCPCS: 93297

== ENCOUNTER 2024-04-10 08:53 | Outpatient (REF) | payer OTHER, SELFPAY ==
[2024-04-10 10:08] LABS: INTERNATIONAL NORM RATIO 3.3 (0.9-1.1); Prothrombin Time 38.8 SEC (10.9-12.4)
== END 2024-04-10 08:54 | disposition home or self-care (01) ==
LOC: HO.HMGCLDS 08:53
PROVIDERS: PCP Nurse Practitioner Family; Visit Provider Nurse Practitioner Family
DX: Z79.01 Long term (current) use of anticoagulants (principal)
CPT/HCPCS: 36415; 85610

== ENCOUNTER 2024-04-15 07:48 | Outpatient (REF) | payer OTHER, SELFPAY ==
[2024-04-15 10:28] LABS: INTERNATIONAL NORM RATIO 2.6 (0.9-1.1); Prothrombin Time 30.5 SEC (10.9-12.4)
== END 2024-04-15 07:49 | disposition home or self-care (01) ==
LOC: HO.HMGCLDS 07:48
PROVIDERS: PCP Nurse Practitioner Family; Visit Provider Nurse Practitioner Family
DX: Z79.01 Long term (current) use of anticoagulants (principal)
CPT/HCPCS: 36415; 85610

== ENCOUNTER 2024-04-24 07:03 | Outpatient (REF) | payer OTHER, SELFPAY ==
[2024-04-24 10:25] LABS: INTERNATIONAL NORM RATIO 2.4 (0.9-1.1); Prothrombin Time 28.2 SEC (10.9-12.4)
== END 2024-04-24 07:04 | disposition home or self-care (01) ==
LOC: HO.HMGCLDS 07:03
PROVIDERS: PCP Nurse Practitioner Family; Visit Provider Nurse Practitioner Family
DX: Z13.89 Encounter for screening for other disorder (principal)
CPT/HCPCS: 36415; 85610; 99212

== ENCOUNTER 2024-04-24 08:01 | Outpatient (AMB) | payer OTHER, SELFPAY ==
[2024-04-24 08:06] VITALS: BP 110/62; PULSE 50; TEMP 36.6; O2SAT 97
--- NOTE | 2024-04-24 08:06 | MHC.OFFWIV ---
Intake Vital Signs 04/24/24 08:06 Height 5 ft 7 in BMI Reason not done Patient refused/unable BP 110/62 Blood Pressure Location Rt brachial Position Sitting Pulse 50 Pulse Source Pulse Oximeter Temp 97.9 F Temp Source Oral Pulse Oximetry (%) 97 Intake Visit Reasons: EP-body itching Intake Note: pt s here for body rash, very itchy. located on back and on legs Patient Tobacco Use Status: Current everyday Tobacco user Allergies lisinopril Allergy (Intermediate, Verified 04/24/24 08:09) Rash Do you need a note to return to daycare/school/sports/work: No HPI EP-body itching HPI Details This note is constructed using voice recognition software. 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 The patient is a 84 year old male who presents to the clinic today with itch and rash on entire body. He notes onset about 1 month ago, but does not recall where it started 1st. He reports that he itches all over and has had a slight red flat rash. He does report that he has applied ?everything you can? to his skin without help. He tried Benadryl which helped a little, but only took that once in a day. He denies fever, chills, cough, shortness of breath, or other URI symptoms, he denies joint and body pain. He reports that he recently changed his laundry detergent as an attempt to help the itch, but has not washed any laundry since buying a new detergent. He has had no other new soaps, lotions, or any other topicals that he can think of. [facility] Medical History Atherosclerotic cardiovascular disease Fatigue High triglycerides Erectile dysfunction Typical atrial flutter Nonischemic cardiomyopathy Hearing loss COPD (chronic obstructive pulmonary disease) Chronic a-fib Atrial fibrillation Elevated blood sugar Asthma Hyperlipidemia HTN (hypertension) Stroke Surgical History Presence of single chamber implantable cardioverter-defibrillator (ICD) History of appendectomy History of tonsillectomy Family History Father Unknown family medical history Mother Unknown family medical history Social History Household Members: None Housing: Apartment Are you a primary youth care specialist to a significant other at home: No Do you presently 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) Alcohol intake: current Alcohol intake frequency: holidays/special occasions only Patient Tobacco Use Status: Current everyday Tobacco user Cigarettes Per Day: 1 Years Smoked: 70 +/- e-Cigarette/Vaping Use: Never Used Second Hand Smoke Exposure: No Advance Directives Date on File: 08/18/20 service: No Current occupational status: retired Cognitive needs: No Hearing needs: No Vision needs: No Review of Systems Const All systems reviewed & are unremarkable except as noted in HPI and below Physical Exam Vital Signs: Last Vital Signs Temp 97.9 F 04/24/24 08:06 Pulse 50 04/24/24 08:06 BP 110/62 04/24/24 08:06 Pulse Ox 97 04/24/24 08:06 Const General: cooperative, healthy appearing, comfortable, no acute distress and well developed Orientation/consciousness: patient oriented x3 Limitations: wheelchair Resp Effort & Inspection: normal respiratory effort and able to speak in complete sentences Skin Other: Widespread macular rash to trunk, arms bilaterally. No erythema, warmth, discharge or signs of secondary bacterial infection. No discharge. Neuro General: patient oriented x3 Assessment & Plan Assessment & Plan (1) Pruritus: Code(s): L29.9 - Pruritus, unspecified Plan: Etiology unclear. Trial of hydroxyzine given response to Benadryl, as this may be dosed more frequently and a day. Advised monitoring for improvement, follow up with worsening or failure to resolve with PCP. Plan See above for full details and plan. Medications: New hydroxyzine HCl 10 mg PO TID 5 days PRN 15 tabs 0RF itching Coding Level of Care Code Est Pt Level 3 (29233) Diagnoses Pruritus L29.9
== END 2024-04-24 10:22 | disposition home or self-care (01) ==
PROVIDERS: PCP Nurse Practitioner Family; Visit Provider Registered Nurse
DX: L29.9 Pruritus, unspecified (principal)

== ENCOUNTER 2024-04-26 10:05 | Inpatient (IN) | payer OTHER, SELFPAY ==
[2024-04-26] VITALS (7 sets, daily range): BP systolic 99–132; BP diastolic 38–61; PULSE 43–84; RESP 14–20; TEMP 36.6–36.7; O2SAT 93–98; BMI 28.1
--- NOTE | ~2024-04-26 | US_ITS ---
EXAMINATION: US ABDOMEN COMPLETE CLINICAL INFORMATION: Transaminitis. Poor appetite. COMPARISON: Doppler renal ultrasound 03/08/2023. TECHNIQUE: Real-time imaging of the abdominal viscera. FINDINGS: PANCREAS: Normal. ABDOMINAL AORTA: Within normal limits INFERIOR VENA CAVA: Visualized portions are normal. LIVER: Diffuse increased echogenicity. The liver contour is normal. No focal hepatic lesion. There is no intrahepatic biliary duct dilatation seen. GALLBLADDER: Prominent phrygian cap. Mild nonspecific gallbladder wall thickening and small amount of sludge as well as pericolic cystic fluid. No stones. No distention. COMMON BILE DUCT: Normal in caliber measuring 0.3 cm in diameter. RIGHT KIDNEY: No hydronephrosis or renal calculi. The kidney measures 10.1 cm in maximum dimension. Lower pole cyst measures 17 mm. LEFT KIDNEY: No hydronephrosis or renal calculi. The kidney measures 10.5 cm in maximum dimension. Tiny cyst measures 5 mm. SPLEEN: Normal. The spleen measures 7.9 cm in maximum dimension. FREE FLUID: Trace US/US abdomen complete IMPRESSION: Nonspecific gallbladder wall thickening with small amount of pericholecystic fluid. No gallstones. No biliary dilatation. Electronically signed by: Benja Almanzar MD 04/28/2024 06:27 PM [facility] [place]
--- NOTE | ~2024-04-26 | CT_ITS ---
EXAMINATION: CT HEAD WITHOUT CONTRAST CLINICAL INFORMATION: Headache status-post fall. COMPARISON: None available. TECHNIQUE: Contiguous axial imaging was performed from the skull base to vertex without intravenous administration of contrast. Multiplanar reformatted images are submitted. This CT examination was performed using dose optimization techniques as appropriate, variously including the following: *Automated exposure control *Adjustment of mA and/or kV according to patient size (this includes techniques or standardized protocols for targeted exams where dose is matched to indication/reason for exam; i.e. extremities or head) *Use of iterative reconstruction technique DLP: 1499 mGy-cm (head and cervical spine) FINDINGS: There is no acute intracranial hemorrhage or evidence of territorial infarction. No abnormal mass effect or midline shift is seen. Rondon to white matter differentiation is well preserved. There is very mild patchy low attenuation change in the periventricular white matter spaces. The ventricles and sulci show commensurate widening, consistent with advanced age. No extra-axial fluid collections are identified. The calvarium and scalp soft tissues are normal. The middle ear cavity and mastoid air cells are clear. The visualized paranasal sinuses are clear. CT/CT head/brain wo IV con IMPRESSION: No acute intracranial pathology. EXAMINATION: CT CERVICAL SPINE WITHOUT CONTRAST CLINICAL INFORMATION: Neck pain status-post fall. COMPARISON: None available. TECHNIQUE: Contiguous axial imaging was performed through the cervical spine without intravenous administration of contrast. Multiplanar reformatted images are submitted. This CT examination was performed using dose optimization techniques as appropriate, variously including the following: *Automated exposure control *Adjustment of mA and/or kV according to patient size (this includes techniques or standardized protocols for targeted exams where dose is matched to indication/reason for exam; i.e. extremities or head) *Use of iterative reconstruction technique DLP: As above FINDINGS: Vertebral body heights and alignment are normal. There is mild reversal of the normal lordotic curvature. At C3-4, there is mild anterior disc space narrowing. At C4-5, there is mild interspace narrowing and a 3 mm anterolisthesis. There is moderately severe degenerative disc disease at C5-6 and C6-7. No acute fracture or spondylolisthesis is seen. There is multi-level endplate arthropathy. The posterior elements are intact. The dens is intact. There is no prevertebral soft tissue swelling. There is a mosaic attenuation pattern at the bilateral lung apices. IMPRESSION: 1. There is multi-level cervical degenerative disease, most pronounced at C5-6 and C6-7, where degenerative disease is moderately severe. 2. No acute fracture or spondylolisthesis is seen. 3. There is mild reversal of the normal lordotic curvature, which can be associated with muscle spasm. 4. A biapical mosaic attenuation pattern is seen, which can be associated with small airway or small vessel disease secondary to an infectious or inflammatory etiology. Findings are incompletely covered in the [id number]. Fleischner guidelines were followed. Electronically signed by: Dagoberto Woodson MD 04/26/2024 12:52 PM [facility]
--- NOTE | ~2024-04-26 | XR_ITS ---
EXAMINATION: XR CHEST CLINICAL INFORMATION: Shortness of breath. COMPARISON: Prior chest radiographs, most recently 03/13/2024. TECHNIQUE: Frontal view of the chest was obtained. FINDINGS: There is stable cardiomegaly. There is atherosclerotic calcification of the aortic knob. A left subclavian AICD is again noted, without lead fracture or change in position. There are scattered bilateral mild to moderate patchy infiltrates. There is mild pulmonary vascular congestion. No pleural effusion or pneumothorax is seen. There is no acute osseous abnormality XR/XR chest 1V IMPRESSION: There is cardiomegaly. There are scattered bilateral mild to moderate patchy infiltrates, likely representing mild pulmonary edema. Bilateral pneumonic infiltrates and ARDS are less likely differential considerations. Please correlate clinically. Electronically signed by: Dagoberto Woodson MD 04/26/2024 02:33 PM [facility]
--- NOTE | ~2024-04-26 | CT_ITS ---
EXAMINATION: CT HEAD WITHOUT CONTRAST CLINICAL INFORMATION: Headache status-post fall. COMPARISON: None available. TECHNIQUE: Contiguous axial imaging was performed from the skull base to vertex without intravenous administration of contrast. Multiplanar reformatted images are submitted. This CT examination was performed using dose optimization techniques as appropriate, variously including the following: *Automated exposure control *Adjustment of mA and/or kV according to patient size (this includes techniques or standardized protocols for targeted exams where dose is matched to indication/reason for exam; i.e. extremities or head) *Use of iterative reconstruction technique DLP: 1499 mGy-cm (head and cervical spine) FINDINGS: There is no acute intracranial hemorrhage or evidence of territorial infarction. No abnormal mass effect or midline shift is seen. Rondon to white matter differentiation is well preserved. There is very mild patchy low attenuation change in the periventricular white matter spaces. The ventricles and sulci show commensurate widening, consistent with advanced age. No extra-axial fluid collections are identified. The calvarium and scalp soft tissues are normal. The middle ear cavity and mastoid air cells are clear. The visualized paranasal sinuses are clear. CT/CT cervical spine wo IV con IMPRESSION: No acute intracranial pathology. EXAMINATION: CT CERVICAL SPINE WITHOUT CONTRAST CLINICAL INFORMATION: Neck pain status-post fall. COMPARISON: None available. TECHNIQUE: Contiguous axial imaging was performed through the cervical spine without intravenous administration of contrast. Multiplanar reformatted images are submitted. This CT examination was performed using dose optimization techniques as appropriate, variously including the following: *Automated exposure control *Adjustment of mA and/or kV according to patient size (this includes techniques or standardized protocols for targeted exams where dose is matched to indication/reason for exam; i.e. extremities or head) *Use of iterative reconstruction technique DLP: As above FINDINGS: Vertebral body heights and alignment are normal. There is mild reversal of the normal lordotic curvature. At C3-4, there is mild anterior disc space narrowing. At C4-5, there is mild interspace narrowing and a 3 mm anterolisthesis. There is moderately severe degenerative disc disease at C5-6 and C6-7. No acute fracture or spondylolisthesis is seen. There is multi-level endplate arthropathy. The posterior elements are intact. The dens is intact. There is no prevertebral soft tissue swelling. There is a mosaic attenuation pattern at the bilateral lung apices. IMPRESSION: 1. There is multi-level cervical degenerative disease, most pronounced at C5-6 and C6-7, where degenerative disease is moderately severe. 2. No acute fracture or spondylolisthesis is seen. 3. There is mild reversal of the normal lordotic curvature, which can be associated with muscle spasm. 4. A biapical mosaic attenuation pattern is seen, which can be associated with small airway or small vessel disease secondary to an infectious or inflammatory etiology. Findings are incompletely covered in the [id number]. Fleischner guidelines were followed. Electronically signed by: Dagoberto Woodson MD 04/26/2024 12:52 PM [facility]
--- NOTE | ~2024-04-26 | XR_ITS ---
EXAMINATION: XR KNEE, RIGHT CLINICAL INFORMATION: Pain. COMPARISON: None available. TECHNIQUE: AP and lateral views of the right knee. FINDINGS: Bony alignment and mineralization are normal. The lateral, medial and patellofemoral joint space compartments are well-maintained. There is minimal tricompartment peripheral osteophyte formation. No fracture or dislocation is seen. There is a very small joint effusion. A tiny enthesophyte arises from the upper pole of the patella quadriceps tendon insertion. There are diffuse atherosclerotic calcifications. XR/XR knee RT 2V IMPRESSION: 1. No fracture or dislocation is seen. There is a very small joint effusion. 2. There is minimal tricompartment peripheral osteophyte formation. Electronically signed by: Dagoberto Woodson MD 04/26/2024 12:45 PM [facility]
--- NOTE | 2024-04-26 10:31 | ECG_ITS ---
Test Reason : FALL Blood Pressure : / mmHG Vent. Rate : 045 BPM Atrial Rate : 045 BPM P-R Int : 328 ms QRS Dur : 112 ms QT Int : 602 ms P-R-T Axes : 000 -57 -44 degrees QTc Int : 520 ms Sinus bradycardia with 1st degree A-V block Left axis deviation Low voltage QRS Inferior infarct (cited on or before 02-JUL-2020) Cannot rule out Anteroseptal infarct (cited on or before 14-JAN-2020) Prolonged QT Abnormal ECG When compared with ECG of 21-FEB-2024 22:34, CA interval has increased QT has lengthened Referred By: Generic ED Physician Electronically Signed By:Bubba Mccullough
--- NOTE | 2024-04-26 10:42 | ED_ITS ---
HPI - General Adult General Chief complaint: Fall Stated complaint: FALL,KNEE SCRAPE,+HS,+COLLAR,WEAKNESS PER EMS Time Seen by Provider: 04/26/24 10:38 Source: patient and EMS Mode of arrival: EMS Limitations: no limitations History of Present Illness ED Provider: LAZ Phillips HPI narrative: This is a 84-year-old male history of CHF, sinus bradycardia with ICD in place, CKD, sleep apnea, erectile dysfunction, diabetes, hyperkalemia, atrial fibrillation/flutter, nonischemic cardiomyopathy, HTN on chronic anticoagulation with warfarin presenting to the emergency department status post weakness, decreased p.o. intake, sob fall ongoing for the past few weeks. Today he had a fall he states he slipped, fell, hit his head, did not lose consciousness. He states he is feeling fine he does not have a headache or neck pain. EMS tried to call her patient however he refused. He does state that after the fall he started experiencing right-sided knee pain. Denies preceding symptoms to fall. Denies chest pain, nausea, vomiting, abdominal pain, headache, vision changes, dizziness and weakness. NIH stroke scale 0. GCS 15 Related Data Home Medications ?Medication ?Instructions ?Recorded ?Confirmed metoprolol succinate 25 mg 25 mg PO DAILY 02/22/24 04/01/24 tablet,extended release 24 hr sildenafil 100 mg tablet 100 mg PO DIRECTED PRN Sexual 02/22/24 04/01/24 Activity trazodone 100 mg tablet 100 mg PO BEDTIME PRN Sleep 02/22/24 04/01/24 warfarin 2 mg tablet 1 mg PO SUMOWETHFR@1800 02/22/24 04/01/24 Previous Rx's ?Medication ?Instructions ?Recorded blood sugar diagnostic (PassionTaguch #100 ea 12/19/22 Ultra Test strips) blood-glucose meter (PIQUR TherapeuticsTouch #1 ea 12/19/22 Ultra2 Meter) lancets 30 gauge (Onetouch Delica #100 ea 12/19/22 Safety Lancet) atorvastatin 40 mg tablet 40 mg PO DAILY 90 days #90 tabs 08/27/23 albuterol sulfate 90 mcg/actuation 2 puff inhalation Q6H PRN 01/02/24 aerosol inhaler Shortness Of Breath 30 days #8.5 grams amiodarone 200 mg tablet 200 mg PO DAILY #90 tabs 09/12/24 empagliflozin 10 mg tablet 10 mg PO DAILY #90 tabs 02/26/24 (Jardiance) hydralazine 25 mg tablet 25 mg PO TID #270 tabs 02/26/24 warfarin 2 mg tablet See Rx Instructions PO .COMPLEX 04/02/24 #60 tabs torsemide 20 mg tablet 40 mg (2 x 20 mg) PO DAILY #120 04/08/24 tabs Breo Ellipta 100 mcg-25 mcg/dose 1 ea inhalation DAILY #180 ea 04/23/24 powder for inhalation (fluticasone furoate-vilanterol) hydroxyzine HCl 10 mg tablet 10 mg PO TID PRN itching 5 days 04/24/24 #15 tabs Allergies Allergy/AdvReac Type Severity Reaction Status Date / Time lisinopril Allergy Intermediate Rash Verified 04/26/24 10:18 Review of Systems 2 Review of Systems: Yes all other systems are reviewed and are negative [facility] Past Medical History Attestation statement: The following information was validated with the patient. Source: old records reviewed and nursing notes reviewed Medical History Atherosclerotic cardiovascular disease Fatigue High triglycerides Erectile dysfunction Typical atrial flutter Nonischemic cardiomyopathy Hearing loss COPD (chronic obstructive pulmonary disease) Chronic a-fib Atrial fibrillation Elevated blood sugar Asthma Hyperlipidemia HTN (hypertension) Stroke Surgical History Presence of single chamber implantable cardioverter-defibrillator (ICD) History of appendectomy History of tonsillectomy Family History Family History Father Unknown family medical history Mother Unknown family medical history Social History Social History Household Members: None Housing: Apartment Are you a primary interior plant caretaker to a significant other at home: No Do you presently have visiting nurse or other home services: Yes ([employer]) Alcohol intake: current Alcohol intake frequency: holidays/special occasions only Patient Tobacco Use Status: Current everyday Tobacco user Cigarettes Per Day: 1 Years Smoked: 70 +/- Smoked in Last 30 Days: No e-Cigarette/Vaping Use: Never Used Second Hand Smoke Exposure: No Use of substances other than those prescribed or required for medical reasons: No Advance Directives: No Advance Directives Information Provided: No Advance Directives Date on File: 08/18/20 Do you have a plan to hurt others: No Plan service: No Current occupational status: retired Cognitive needs: No Hearing needs: No Vision needs: No Physical Exam ED Vital Signs: Vital Signs - 24 hr 04/26/24 10:13 04/26/24 10:25 04/26/24 13:19 Temperature 97.9 F Pulse Rate 45 L 58 44 L Respiratory Rate 17 18 16 Blood Pressure 108/38 L 127/61 Pulse Oximetry 96 94 Oxygen Delivery Method Room Air Room Air 04/26/24 14:03 Temperature Pulse Rate 43 L Respiratory Rate 20 Blood Pressure 123/54 L Pulse Oximetry 95 Oxygen Delivery Method Room Air BMI result Body Mass Index 28.1 vss Appearance: Alert.? Oriented X3.? No acute distress.? Head: Normocephalic, atraumatic, no step-offs or deformities Eyes: Pupils equal, round and reactive to light.? ENT: Pharynx normal.? Neck: Normal inspection.? Neck supple.? CVS: Normal heart rate and rhythm.? Pulses normal.? Respiratory: No respiratory distress.? Breath sounds normal.? Abdomen: Soft and nontender.? Skin: Skin warm and dry.? Normal skin color.? Normal skin turgor.? Extremities: No lower extremity edema.? No calf ttp. 5/5 strength to bilateral upper and lower extremities + painful rom to right knee normal sensation distaly. No foot drop 2+ popliteal pulses equal and b/l. Neuro: Oriented X 3.? No motor deficit.? No sensory deficit. CN 2-12 intact Course Reevaluation(s) Reevaluation #1: QTC markedly elevated on EKG 2 g of magnesium ordered. Time: 11:24 Reevaluation #2: Patient's CBC with a baseline normocytic anemia. Chemistry with an acute on chronic kidney injury BUN of 34, creatinine 2.34. He is complaining of shortness of breath and his BNP is markedly elevated at 3390, Lasix ordered. Coags appear to be around patient's baseline Right knee x-ray with no fracture dislocation small joint effusion, it is not noted on exam. Minimal tricompartment osteophyte formation. CT cervical spine with multilevel cervical degenerative disease, no acute fractures or spondylolisthesis. Reversal of normal lordosis noted. CT head with no acute intracranial hemorrhage or abnormalities. Chest x-ray and urine pending. Likely hospital admission. Time: 14:32 Medications Administered Discontinued Medications Generic Name Dose Route Start Last Admin Trade Name Selwyn PRN Reason Stop Dose Admin Magnesium Sulfate 2 gm in 50 mls @ 25 mls/hr 04/26/24 11:23 04/26/24 12:25 Magnesium Sulfate/H2o IV 04/26/24 13:22 25 mls/hr ONCE ONE Administration Medical Decision Making Medical Decision Making [facility] Narrative: 84-year-old male presents with poor p.o. intake, weakness, sob times months and fall earlier today, no head strike no loss of consciousness however he is on blood thinners. Physical exam benign. NIH stroke scale 0, GCS 15. Today's fall likely mechanical fall, unlikely ACS, PE. Unlikely intracranial hemorrhage, stroke, posterior stroke. No signs of fracture dislocation to extremities. Unlikely internal bleeding to chest, abdomen or pelvis, no complaints in these regions no signs of trauma. Will rule out metabolic derangements, urinary infection, dysrhythmia. Shortness breath concerning for possible CHF. Unlikely pneumonia, PE, ACS, dissection. Plan labs, imaging, urine Differential Diagnosis Differential Diagnoses: The differential diagnosis associated with the presentation includes (Today's fall likely mechanical fall, unlikely ACS, PE. Unlikely intracranial hemorrhage, stroke, posterior stroke. No signs of fracture dislocation to extremities. Unlikely internal bleeding to chest, abdomen or pelvis, no complaints in these regions no signs of trauma. Will rule out metabolic d) Admission/Observation Consideration of admission/observation: Escalation of care including admission/observation considered (possible ) Lab Data [facility] Lab Attestation statement: I reviewed the patient's lab results. 04/26/24 10:51 04/26/24 10:51 Labs: Lab Results 04/26/24 Range/Units 10:51 WBC 6.2 (4.8-10.8) X10*3/uL RBC 4.09 L (4.60-5.80) X10*6/uL Hgb 11.8 L (14.0-18.0) g/dl Hct 36.5 L (42.0-52.0) % MCV 89.2 (80.0-98.0) fL MCH 28.9 (27.0-33.0) pg MCHC 32.3 (31.0-36.0) g/dl RDW 20.8 H (11.0-16.0) % Plt Count 163 D (160-400) X10*3/uL MPV 12.8 H (9.4-12.4) fL Immature Gran % (Auto) 0.3 (0.0-0.4) % Neut % (Auto) 77.2 H (45-73) % Lymph % (Auto) 10.3 L (20-40) % Jefferson % (Auto) 9.8 (2-11) % Eos % (Auto) 1.8 (0-4) % Baso % (Auto) 0.6 (0-2) % Lymph # (Auto) 0.6 L (1.2-4.9) X10*3/uL Jefferson # (Auto) 0.6 (0.1-1.2) X10*3/uL Eos # (Auto) 0.1 (0.0-0.4) X10*3/uL Baso # (Auto) 0.0 (0.0-0.2) X10*3/uL Abs Immat Gran (auto) 0.02 (0.00-0.03) X10*3/uL Absolute Neuts (auto) 4.8 (2.0-8.3) x10*3/uL Absolute Nucleated RBC 0.000 (0.0-0.012) X10*3/uL Nucleated RBC % (auto) 0.0 (0.0-0.2) /100WBC PT 35.9 H D (10.9-12.4) SEC INR 3.1 H (0.9-1.1) Sodium 139 (135-145) mmol/L Potassium 3.5 (3.3-5.1) mmol/L Chloride 98 (96-108) mmol/L Carbon Dioxide 28 (22-29) mmol/L Anion Gap 17 (12-20) BUN 34 H (9-16) mg/dL Creatinine 2.34 H (0.5-1.4) mg/dL Estim Creat Clear Calc 23.6 Estimated GFR 27 Random Glucose 96 (60-115) mg/dL Calcium 9.3 (8.4-10.2) mg/dL Magnesium 2.6 (1.6-2.6) mg/dL Total Bilirubin 2.9 H (0.0-1.0) mg/dL AST 60 H (5-37) U/L ALT 34 (0-40) U/L Alkaline Phosphatase 309 H (39-117) U/L Troponin I High Sens 11.9 (<3.5-35.0) ng/L B-Natriuretic Peptide 3390 H (<100) pg/mL Total Protein 6.9 (6.5-8.0) g/dL Albumin 3.1 L (3.5-5.0) g/dL Independent Interpretation I performed an independent interpretation of an: EKG (Vent. Rate : 045 BPM Atrial Rate : 045 BPM P-R Int : 328 ms QRS Dur : 112 ms QT Int : 602 ms P-R-T Axes : 000 -57 -44 degrees QTc Int : 520 ms Sinus bradycardia with 1st degree A-V block Left axis deviation Low voltage QRS Inferior infarct (cited on or before 02-JUL-19), Plain X-Ray ( XR/XR knee RT 2V IMPRESSION: 1. No fracture or dislocation is seen. There is a very small joint effusion. 2. There is minimal tricompartment peripheral osteophyte formation. ) and CT Scan (IMPRESSION: 1. There is multi-level cervical degenerative disease, most pronounced at C5-6 and C6-7, where degenerative disease is moderately severe. 2. No acute fracture or spondylolisthesis is seen. 3. There is mild reversal of the normal lordotic curvature, which can be associated with m) Interpretation: CT/CT head/brain wo IV con IMPRESSION: No acute intracranial pathology. Radiology Impression Discussion of test interpretation with radiology: I have reviewed the radiologist's reading. Independent Historian Clinical information obtained from an independent historian. History obtained from or confirmed by: EMS External Record Review External record reviewed: Inpatient record, Office record, Outpatient record, Prior outpatient labs, Prior outpatient radiology, Primary care record and Outside ED record Chronic Conditions Patient?s care impacted by: Other (see HPI ) Social Determinants Patient?s care significantly limited by Social Determinants of Health including: Other Social Determinant of Health Critical Care Time Critical Care Time Critical Care Time: Yes Total Critical Care Time: 35 Attestation: I attest to this time spent taking care of the patient, obtaining history, physical, reviewing labs, imaging, treatment of patients condition +/- specialist/hospitalist consult Discharge Plan Discharge Clinical Impression: CHF (congestive heart failure), Prolonged Q-T interval on ECG, YUMIKO (acute kidney injury), Effusion of right knee, Physical deconditioning Patient Disposition: Admitted As Inpatient Prescriptions: No Action (DME) blood-glucose meter [OneTouch Ultra2 Meter] Misc See Rx Instructions .Route Qty: 1 0RF Rx Instructions: Use to check fasting blood sugar and a random sugar daily (DME) OneTouch Ultra Test Strip See Rx Instructions .Route Qty: 100 5RF Rx Instructions: Use to check fasting blood sugar and a random sugar daily (DME) lancets [PIQUR Therapeuticstouch Delica Safety Lancet] 30 gauge misc See Rx Instructions .Route Qty: 100 5RF Rx Instructions: Use to check fasting blood sugar and a random sugar daily atorvastatin 40 mg tablet 40 mg PO DAILY 90 Days Qty: 90 1RF albuterol sulfate 90 mcg/actuation HFA aerosol inhaler 2 puff inhalation Q6H PRN (Reason: Shortness Of Breath) 30 Days Qty: 8.5 3RF amiodarone 200 mg tablet 200 mg PO DAILY Qty: 90 3RF warfarin 2 mg tablet See Rx Instructions PO .COMPLEX Qty: 60 1RF Protocol: Dose Management Condition: Sunday (Week One) Dose/Route: 2 mg Instruction: 1 x 2 mg tablet Condition: Sunday Dose/Route: 2.5 mg Instruction: 1 x 2.5 mg tablet Condition: Sunday Dose/Route: 2 mg Instruction: 1 x 2 mg tablet Condition: Sunday Dose/Route: 5 mg Instruction: 2 x 2.5 mg tablets Condition: Dose/Route: 2.5 mg Instruction: 1 x 2.5 mg tablet Condition: Sunday Dose/Route: 2 mg Instruction: 1 x 2 mg tablet Condition: Sunday Dose/Route: 2.5 mg Instruction: 1 x 2.5 mg tablet Condition: Sunday (Week Two) Dose/Route: 2 mg Instruction: 1 x 2 mg tablet Condition: Sunday Dose/Route: 2.5 mg Instruction: 1 x 2.5 mg tablet Condition: Sunday Dose/Route: 2 mg Instruction: 1 x 2 mg tablet Condition: Sunday Dose/Route: 5 mg Instruction: 2 x 2.5 mg tablets Condition: Dose/Route: 2.5 mg Instruction: 1 x 2.5 mg tablet Condition: Sunday Dose/Route: 2 mg Instruction: 1 x 2 mg tablet Condition: Sunday Dose/Route: 2.5 mg Instruction: 1 x 2.5 mg tablet Protocol Text: Adjustment Start Date: Sunday12/07/20 INR Value: 2.5 INR Date: 12/07/20 Recheck Date: 12/21/20 Additional Instructions: pt aware to continue with routine dosing and repeat INR in 2 weeks. Rx Instructions: orally 2mg on /Sun, 1mg all other days; torsemide 20 mg tablet 40 mg PO DAILY Qty: 120 0RF Breo Ellipta 100-25 mcg/dose blister with device 1 ea inhalation DAILY Qty: 180 1RF metoprolol succinate 25 mg tablet extended release 24 hr 25 mg PO DAILY sildenafil 100 mg tablet 100 mg PO DIRECTED PRN (Reason: Sexual Activity) Rx Instructions: TAKE 1 TABLET NEEDED BY MOUTH 30 MINUTES TO 4 HOURS BEFORE SEXUAL ACTIVITY warfarin 2 mg tablet 1 mg PO SUMOWETHFR@1800 trazodone 100 mg tablet 100 mg PO BEDTIME PRN (Reason: Sleep) hydralazine 25 mg Tablet 25 mg PO TID Qty: 270 0RF Protocol: Hold for SBP< HOLD for SBP < : 90 Jardiance 10 mg Tablet 10 mg PO DAILY Qty: 90 0RF hydroxyzine HCl 10 mg tablet 10 mg PO TID PRN (Reason: itching) 5 Days Qty: 15 0RF Print Language: Swedish
[2024-04-26 10:55] LABS: MANUAL DIFF FLAG NO
[2024-04-26 10:59] LABS: Basophils Percent Auto 0.6 % (0-2); Eosinophils Absolute Auto 0.1 X10*3/uL (0.0-0.4); Eosinophils Percent Auto 1.8 % (0-4); Hematocrit 36.5 % (42.0-52.0); Hemoglobin 11.8 g/dl (14.0-18.0); Imm Gran Abs Auto 0.02 X10*3/uL (0.00-0.03); Imm Gran Pct Auto 0.3 % (0.0-0.4); Lymphocytes Absolute Auto 0.6 X10*3/uL (1.2-4.9); Lymphocytes Percent Auto 10.3 % (20-40); Mean Corpuscular HGB Conc 32.3 g/dl (31.0-36.0); Mean Corpuscular Hemoglobin 28.9 pg (27.0-33.0); Mean Corpuscular Volume 89.2 fL (80.0-98.0); Mean Platelet Volume 12.8 fL (9.4-12.4); Monocytes Absolute Auto 0.6 X10*3/uL (0.1-1.2); Monocytes Percent Auto 9.8 % (2-11); Neutrophils Absolute Auto 4.8 x10*3/uL (2.0-8.3); Neutrophils Percent Auto 77.2 % (45-73); Platelet Count 163 X10*3/uL (160-400); Red Blood Count 4.09 X10*6/uL (4.60-5.80); Red Cell Distribution Width 20.8 % (11.0-16.0); White Blood Count 6.2 X10*3/uL (4.8-10.8)
[2024-04-26 11:03] LABS: INTERNATIONAL NORM RATIO 3.1 (0.9-1.1); Prothrombin Time 35.9 SEC (10.9-12.4)
[2024-04-26 11:16] LABS: B Type Natriuretic Peptide 3390 pg/mL (<100)
[2024-04-26 11:19] LABS: Troponin-I High Sensitivity 11.9 ng/L (<3.5-35.0)
[2024-04-26 11:20] LABS: Alanine Aminotransferase 34 U/L (0-40); Albumin Level 3.1 g/dL (3.5-5.0); Anion Gap 17 (12-20); Aspartate Amino Transferase 60 U/L (5-37); Bilirubin Total 2.9 mg/dL (0.0-1.0); Blood Urea Nitrogen 34 mg/dL (9-16); Calcium 9.3 mg/dL (8.4-10.2); Carbon Dioxide 28 mmol/L (22-29); Chloride 98 mmol/L (96-108); Creatinine Clr Calc Pharmacy 23.6; Estimated Glomerular Filt Rate 27; Glucose Random 96 mg/dL (60-115); Magnesium 2.6 mg/dL (1.6-2.6); Potassium 3.5 mmol/L (3.3-5.1); Sodium 139 mmol/L (135-145); Total Protein 6.9 g/dL (6.5-8.0)
[2024-04-26] MEDS: Magnesium Sulfate/H2O 2 GM/50 ML PIGGYBACK IV (12:25)
[2024-04-26 13:58] LABS: Alkaline Phosphatase 309 U/L (39-117)
--- NOTE | 2024-04-26 15:27 | PM.IMHP ---
History of Present Illness Date of Service: 04/26/24 Chief Complaint: Acute kidney injury 84-year-old male history of CHF, sinus bradycardia with ICD in place, CKD, sleep apnea, erectile dysfunction, diabetes, hyperkalemia, atrial fibrillation/flutter, nonischemic cardiomyopathy, HTN on chronic anticoagulation with warfarin presenting to the emergency department status post weakness, decreased p.o. intake, sob fall ongoing for the past few weeks. Today he had a fall he states he slipped, fell, hit his head, did not lose consciousness. He states he is feeling fine he does not have a headache or neck pain. EMS tried to call her patient however he refused. He does state that after the fall he started experiencing right-sided knee pain. Denies preceding symptoms to fall. Denies chest pain, nausea, vomiting, abdominal pain, headache, vision changes, dizziness and weakness. In ER, found to have acute kidney injury on chronic kidney disease and overall failure to thrive as patient states he has not been eating well for several weeks and has been progressively weak. Review of Systems Review of Systems: Denies chest pain Denies shortness of breath Denies nausea vomiting diarrhea Denies fever chills Admits to progressive weakness and deconditioning with decreased appetite PMFSH Medical History (Updated 04/26/24 @ 15:41 by Saúl Cifuentes DO) Chronic a-fib Atherosclerotic cardiovascular disease Fatigue High triglycerides Erectile dysfunction Typical atrial flutter Nonischemic cardiomyopathy Hearing loss COPD (chronic obstructive pulmonary disease) Atrial fibrillation Elevated blood sugar Asthma Hyperlipidemia HTN (hypertension) Stroke Family History Father Unknown family medical history Mother Unknown family medical history Surgical History Presence of single chamber implantable cardioverter-defibrillator (ICD) History of appendectomy History of tonsillectomy Social History Household Members: None Housing: Apartment Are you a primary landcare officer to a significant other at home: No Do you presently have visiting nurse or other home services: Yes ([employer]) Alcohol intake: current Alcohol intake frequency: holidays/special occasions only Patient Tobacco Use Status: Current everyday Tobacco user Cigarettes Per Day: 1 Years Smoked: 70 +/- Smoked in Last 30 Days: No e-Cigarette/Vaping Use: Never Used Second Hand Smoke Exposure: No Use of substances other than those prescribed or required for medical reasons: No Advance Directives: No Advance Directives Information Provided: No Advance Directives Date on File: 08/18/20 Do you have a plan to hurt others: No Plan service: No Current occupational status: retired Cognitive needs: No Hearing needs: No Vision needs: No Meds Allergies Allergy/AdvReac Type Severity Reaction Status Date / Time lisinopril Allergy Intermediate Rash Verified 04/26/24 10:18 Active Medications: Current Medications Acetaminophen (Acetaminophen 325 Mg Tablet) 650 mg PO Q6H PRN PRN Reason: Pain, Mild (Pain Scale 1-3), fever or headache Calcium Carbonate (Calcium Carbonate 750 Mg Tab.Chew) 750 mg PO Q4H PRN PRN Reason: Heartburn Magnesium Hydroxide (Milk Of Magnesia 30 Ml Oral.Susp) 30 ml PO DAILY PRN PRN Reason: Constipation Melatonin (Melatonin 3 Mg Tablet) 6 mg PO BEDTIME PRN PRN Reason: Insomnia Ondansetron HCl (Ondansetron Hcl 4 Mg/2 Ml Vial) 4 mg IVPUSH Q8H PRN PRN Reason: Nausea and Vomiting Sodium Chloride (0.9 % Sodium Chloride Flush 3 Ml Syringe) 3 ml IVFLUSH [facility] Medications ?Medication ?Instructions ?Recorded ?Confirmed ?Last Taken ?Type metoprolol succinate 25 mg 25 mg PO DAILY 02/22/24 04/01/24 02/21/24 History tablet,extended release 24 hr sildenafil 100 mg tablet 100 mg PO DIRECTED PRN Sexual 02/22/24 04/01/24 Unknown History Activity trazodone 100 mg tablet 100 mg PO BEDTIME PRN Sleep 02/22/24 04/01/24 Unknown History warfarin 2 mg tablet 1 mg PO SUMOWETHFR@1800 02/22/24 04/01/24 02/21/24 History Physical Exam Vital Signs and Narrative: Vital Signs: Last Vital Signs Temp 97.9 F 04/26/24 10:13 Pulse 43 L 04/26/24 14:03 Resp 20 04/26/24 14:03 BP 123/54 L 04/26/24 14:03 Pulse Ox 95 04/26/24 14:03 O2 Del Method Room Air 04/26/24 14:03 BMI result Body Mass Index 28.1 Const: Other: Awake alert no acute distress. Resp: Other: Bilateral basilar crackles otherwise clear to auscultation throughout Cardio: Other: Irregularly irregular; no S4; positive S1-S2; no S3 2/6 systolic murmur right sternal border 2nd intercostal space GI: Other: Soft nontender nondistended normoactive bowel sounds Extrem: Other: No edema bilaterally Results Labs 04/26/24 10:51 04/26/24 10:51 Labs: Laboratory Results - last 24 hr 04/26/24 10:51 MCV 89.2 MCH 28.9 MCHC 32.3 RDW 20.8 H Plt Count 163 D MPV 12.8 H Immature Gran % (Auto) 0.3 Neut % (Auto) 77.2 H Lymph % (Auto) 10.3 L Tate % (Auto) 9.8 Eos % (Auto) 1.8 Baso % (Auto) 0.6 Lymph # (Auto) 0.6 L Tate # (Auto) 0.6 Eos # (Auto) 0.1 Baso # (Auto) 0.0 Abs Immat Gran (auto) 0.02 Absolute Neuts (auto) 4.8 Absolute Nucleated RBC 0.000 Nucleated RBC % (auto) 0.0 PT 35.9 H D INR 3.1 H Anion Gap 17 Estim Creat Clear Calc 23.6 Estimated GFR 27 Random Glucose 96 Calcium 9.3 Magnesium 2.6 Total Bilirubin 2.9 H AST 60 H ALT 34 Alkaline Phosphatase 309 H Total Creatine Kinase 40 Troponin I High Sens 11.9 B-Natriuretic Peptide 3390 H Total Protein 6.9 Albumin 3.1 L Imaging Radiologist's Impressions: Impressions Head CT 04/26/24 10:37 IMPRESSION: No acute intracranial pathology. EXAMINATION: CT CERVICAL SPINE WITHOUT CONTRAST CLINICAL INFORMATION: Neck pain status-post fall. COMPARISON: None available. TECHNIQUE: Contiguous axial imaging was performed through the cervical spine without intravenous administration of contrast. Multiplanar reformatted images are submitted. This CT examination was performed using dose optimization techniques as appropriate, variously including the following: *Automated exposure control *Adjustment of mA and/or kV according to patient size (this includes techniques or standardized protocols for targeted exams where dose is matched to indication/reason for exam; i.e. extremities or head) *Use of iterative reconstruction technique DLP: As above FINDINGS: Vertebral body heights and alignment are normal. There is mild reversal of the normal lordotic curvature. At C3-4, there is mild anterior disc space narrowing. At C4-5, there is mild interspace narrowing and a 3 mm anterolisthesis. There is moderately severe degenerative disc disease at C5-6 and C6-7. No acute fracture or spondylolisthesis is seen. There is multi-level endplate arthropathy. The posterior elements are intact. The dens is intact. There is no prevertebral soft tissue swelling. There is a mosaic attenuation pattern at the bilateral lung apices. IMPRESSION: 1. There is multi-level cervical degenerative disease, most pronounced at C5-6 and C6-7, where degenerative disease is moderately severe. 2. No acute fracture or spondylolisthesis is seen. 3. There is mild reversal of the normal lordotic curvature, which can be associated with muscle spasm. 4. A biapical mosaic attenuation pattern is seen, which can be associated with small airway or small vessel disease secondary to an infectious or inflammatory etiology. Findings are incompletely covered in the [id number]. Fleischner guidelines were followed. Electronically signed by: Dagoberto Woodson MD 04/26/2024 12:52 PM [facility] [place], [place] Cervical Spine CT 04/26/24 10:56 IMPRESSION: No acute intracranial pathology. EXAMINATION: CT CERVICAL SPINE WITHOUT CONTRAST CLINICAL INFORMATION: Neck pain status-post fall. COMPARISON: None available. TECHNIQUE: Contiguous axial imaging was performed through the cervical spine without intravenous administration of contrast. Multiplanar reformatted images are submitted. This CT examination was performed using dose optimization techniques as appropriate, variously including the following: *Automated exposure control *Adjustment of mA and/or kV according to patient size (this includes techniques or standardized protocols for targeted exams where dose is matched to indication/reason for exam; i.e. extremities or head) *Use of iterative reconstruction technique DLP: As above FINDINGS: Vertebral body heights and alignment are normal. There is mild reversal of the normal lordotic curvature. At C3-4, there is mild anterior disc space narrowing. At C4-5, there is mild interspace narrowing and a 3 mm anterolisthesis. There is moderately severe degenerative disc disease at C5-6 and C6-7. No acute fracture or spondylolisthesis is seen. There is multi-level endplate arthropathy. The posterior elements are intact. The dens is intact. There is no prevertebral soft tissue swelling. There is a mosaic attenuation pattern at the bilateral lung apices. IMPRESSION: 1. There is multi-level cervical degenerative disease, most pronounced at C5-6 and C6-7, where degenerative disease is moderately severe. 2. No acute fracture or spondylolisthesis is seen. 3. There is mild reversal of the normal lordotic curvature, which can be associated with muscle spasm. 4. A biapical mosaic attenuation pattern is seen, which can be associated with small airway or small vessel disease secondary to an infectious or inflammatory etiology. Findings are incompletely covered in the [id number]. Fleischner guidelines were followed. Electronically signed by: Dagoberto Woodson MD 04/26/2024 12:52 PM EST RP Knee X-Ray 04/26/24 11:35 IMPRESSION: 1. No fracture or dislocation is seen. There is a very small joint effusion. 2. There is minimal tricompartment peripheral osteophyte formation. Electronically signed by: Dagoberto Woodson MD 04/26/2024 12:45 PM EST RP Chest X-Ray 04/26/24 13:41 IMPRESSION: There is cardiomegaly. There are scattered bilateral mild to moderate patchy infiltrates, likely representing mild pulmonary edema. Bilateral pneumonic infiltrates and ARDS are less likely differential considerations. Please correlate clinically. Electronically signed by: Dagoberto Woodson MD 04/26/2024 02:33 PM EST RP Assessment and Plan (1) YUMIKO (acute kidney injury): Status: Acute (2) Acute on chronic clinical systolic heart failure: Status: Acute (3) Chronic a-fib: Status: Acute (4) HTN (hypertension): Qualifiers: Hypertension type: primary hypertension Qualified Code(s): I10 - Essential (primary) hypertension Status: Acute (5) Diabetes type 2, controlled: Qualifiers: Diabetes mellitus [employer] insulin use: unspecified [employer] insulin use status Diabetes mellitus complication status: with unspecified complications Qualified Code(s): E11.8 - Type 2 diabetes mellitus with unspecified complications Status: Acute Plan 84-year-old male history of CHF, sinus bradycardia with ICD in place, CKD, sleep apnea, erectile dysfunction, diabetes, hyperkalemia, atrial fibrillation/flutter, nonischemic cardiomyopathy, HTN on chronic anticoagulation with warfarin presenting to the emergency department status post weakness, decreased p.o. intake, sob fall ongoing for the past few weeks. Workup consistent with YUMIKO on CKD along with overall failure to thrive 1. YUMIKO on CKD 3 -unclear noncompliance with medications -Lasix 40 mg IV x1 -follow renals/divalents -nephrology consult 2. Acute on chronic systolic heart failure -as per 1. -Lasix 40 IV x1 -cardiology consult in a.m. -2D echo 3. Chronic atrial fibrillation in backdrop of known CAD -currently bradycardic at this time -hold all joel blockers and antiarrhythmics -resume warfarin in a.m. and outpatient dosing... INR 3.1 on admission -admit to telemetry -cardiology consult in a.m. 4. COPD -DuoNebs q.4 hours while awake -supplemental O2 to maintain sats greater than equal to 90% 5. Diabetes type 2 -random glucose acceptable. -lispro correctional scale -hold Jardiance initially. .. Add back when appropriate -diabetic diet Full code Warfarin Patient will require at least 2 midnights going forward of inpatient hospitalization to treat YUMIKO and acute on chronic systolic heart failure according to specialty consult. This can not be achieved a lesser acute facility Quality Stroke Does the patient have a stroke diagnosis?: No VTE Prior VTE?: No VTE Risk Level:: Medical - moderate - high VTE Device Contraindication: Treatment Not Indicated VTE Drug Contraindication: N/A - Med Ordered
[2024-04-26] MEDS: Furosemide 40 MG/4 ML VIAL IVPUSH (16:36)
--- NOTE | 2024-04-26 18:56 | PHA.MEDREC ---
Pharmacy Consult ? Medication Reconciliation Pharmacy has completed the medication reconciliation. Patient was able to confirm medications. However patient wasnt sure if he is still on lisinopril or jaridance. when looking at medical records, patient did have an office visit on 04/01 that confirmed discontinuation of lisinopril due to allergy (rash) and jardiance was reconciled as a home med. Patient is also no longer on torsemide, per office note on 04/14 due to insurance coverage.
[2024-04-27 00:48] VITALS: BP 141/70; PULSE 50; RESP 16; TEMP 36.6
[2024-04-27] MEDS: 0.9 % Sodium Chloride Flush 3 ML SYRINGE IVFLUSH ×4 (02:00→20:09)
--- NOTE | 2024-04-27 06:01 | PC.NURSE ---
Patient is sleeping on stretcher bed, sinus luciano on monitor. Dr. Miguel aware, RR 16, O2 Sat 96% RA, call mae in patient's reach.
[2024-04-27 06:24] LABS: MANUAL DIFF FLAG NO
[2024-04-27 06:26] LABS: Basophils Percent Auto 0.5 % (0-2); Eosinophils Absolute Auto 0.1 X10*3/uL (0.0-0.4); Eosinophils Percent Auto 1.7 % (0-4); Hemoglobin 11.3 g/dl (14.0-18.0); Imm Gran Abs Auto 0.03 X10*3/uL (0.00-0.03); Imm Gran Pct Auto 0.5 % (0.0-0.4); Lymphocytes Absolute Auto 0.5 X10*3/uL (1.2-4.9); Lymphocytes Percent Auto 8.8 % (20-40); Mean Corpuscular HGB Conc 33.2 g/dl (31.0-36.0); Mean Corpuscular Hemoglobin 29.8 pg (27.0-33.0); Mean Corpuscular Volume 89.7 fL (80.0-98.0); Mean Platelet Volume 12.6 fL (9.4-12.4); Monocytes Absolute Auto 0.6 X10*3/uL (0.1-1.2); Neutrophils Absolute Auto 4.7 x10*3/uL (2.0-8.3); Neutrophils Percent Auto 78.5 % (45-73); Platelet Count 151 X10*3/uL (160-400); Red Blood Count 3.79 X10*6/uL (4.60-5.80); Red Cell Distribution Width 20.8 % (11.0-16.0)
[2024-04-27 06:44] LABS: Alanine Aminotransferase 26 U/L (0-40); Albumin Level 2.8 g/dL (3.5-5.0); Alkaline Phosphatase 271 U/L (39-117); Anion Gap 14 (12-20); Aspartate Amino Transferase 49 U/L (5-37); Bilirubin Total 2.6 mg/dL (0.0-1.0); Blood Urea Nitrogen 36 mg/dL (9-16); Calcium 8.7 mg/dL (8.4-10.2); Carbon Dioxide 27 mmol/L (22-29); Chloride 102 mmol/L (96-108); Creatinine Clr Calc Pharmacy 25.6; Estimated Glomerular Filt Rate 29; Glucose Random 82 mg/dL (60-115); Potassium 3.4 mmol/L (3.3-5.1); Sodium 140 mmol/L (135-145); Total Protein 6.2 g/dL (6.5-8.0)
--- NOTE | 2024-04-27 07:42 | PC.NURSE ---
Care of Pt assumed at change of shift. Pt resting comfortably with eyes closed. Pt is wakes easily with verbal commands. Pt is assisted to the upright position for breakfast. Pt is alert and oriented. NAD noted at this time.
[2024-04-27 08:12] VITALS: BP 93/48; PULSE 46; RESP 16; O2SAT 97
[2024-04-27 13:04] VITALS: BP 104/47; PULSE 46; RESP 16
--- NOTE | 2024-04-27 14:24 | HO.PM.IMPN ---
Subjective Subjective Date of Service: 04/27/24 Interval History: Being followed due to weakness and fall As per patient he feels weak, lives alone, has VNA services has been ambulating with cane, he slipped and fell down without loss of consciousness, no head trauma, complaining of loss of taste since previous hospitalization and February, with decreased by mouth intake, has been using Lasix once daily since feels he is on too many medications,denies dietary indiscretion, in the ED noted to have acute on chronic kidney disease, Denies chest pain, no shortness of breath, no PND or orthopnea.. Review of Systems All other symptoms reviewed and are negative. Physical Exam Vital Signs: Vital Signs: Last Vital Signs Temp 97.9 F 04/27/24 00:48 Pulse 46 L 04/27/24 13:04 Resp 16 04/27/24 13:04 BP 104/47 L 04/27/24 13:04 Pulse Ox 97 04/27/24 08:12 O2 Del Method Room Air 04/27/24 08:12 BMI result Body Mass Index 28.1 Const: Other: General resting comfortably in no acute distress. Neck no JVD. CVS regular rate rhythm, Respiratory lungs clear to auscultation, no respiratory distress, no wheeze, no rhonchi. Gastrointestinal abdomen soft, non tender, bowel sounds audible Extremities no edema. Neuro non focal Skin no rash Appropriate affect Objective Data Active Medications Acetaminophen (Acetaminophen 325 Mg Tablet) 650 mg PO Q6H PRN PRN Reason: Pain, Mild (Pain Scale 1-3), fever or headache Calcium Carbonate (Calcium Carbonate 750 Mg Tab.Chew) 750 mg PO Q4H PRN PRN Reason: Heartburn Magnesium Hydroxide (Milk Of Magnesia 30 Ml Oral.Susp) 30 ml PO DAILY PRN PRN Reason: Constipation Melatonin (Melatonin 3 Mg Tablet) 6 mg PO BEDTIME PRN PRN Reason: Insomnia Ondansetron HCl (Ondansetron Hcl 4 Mg/2 Ml Vial) 4 mg IVPUSH Q8H PRN PRN Reason: Nausea and Vomiting Sodium Chloride (0.9 % Sodium Chloride Flush 3 Ml Syringe) [facility] Last Admin: 04/27/24 09:35 Dose: 3 ml Documented By: QUYNH Labs 04/27/24 05:50 04/27/24 05:50 Labs: Laboratory Results - last 24 hr 04/26/24 04/27/24 10:51 05:50 MCV 89.7 MCH 29.8 MCHC 33.2 RDW 20.8 H Plt Count 151 L MPV 12.6 H Immature Gran % (Auto) 0.5 H Neut % (Auto) 78.5 H Lymph % (Auto) 8.8 L [place] % (Auto) 10.0 Eos % (Auto) 1.7 Baso % (Auto) 0.5 Lymph # (Auto) 0.5 L [place] # (Auto) 0.6 Eos # (Auto) 0.1 Baso # (Auto) 0.0 Abs Immat Gran (auto) 0.03 Absolute Neuts (auto) 4.7 Absolute Nucleated RBC 0.000 Nucleated RBC % (auto) 0.0 Anion Gap 14 Estim Creat Clear Calc 25.6 Estimated GFR 29 Random Glucose 82 Calcium 8.7 D Total Bilirubin 2.6 H AST 49 H ALT 26 Alkaline Phosphatase 271 H Total Creatine Kinase 40 Total Protein 6.2 L Albumin 2.8 L Assessment and Plan (1) Diabetes type 2, controlled: Status: Acute (2) Chronic a-fib: Status: Acute (3) Acute on chronic clinical systolic heart failure: Status: Acute (4) Physical deconditioning: Status: Acute Plan 84-year-old male history of CHF, sinus bradycardia with ICD in place, CKD, sleep apnea, erectile dysfunction, diabetes, hyperkalemia, atrial fibrillation/flutter, nonischemic cardiomyopathy, HTN on chronic anticoagulation with warfarin presenting to the emergency department status post weakness, decreased p.o. intake, sob fall ongoing for the past few weeks. Workup consistent with YUMIKO on CKD along with overall failure to thrive 1. YUMIKO on CKD 3 -likely cardiorenal, creatinine improved with IV Lasix 40 mg -resume lasix -follow BMP 2. Acute on chronic systolic heart failure, ischemic cardiomyopathy status post AICD -s/p Lasix 40 IV x1, continue Lasix -last echo 12/28/2022 showed EF 30-35% moderate pulmonary hypertension and global hypokinesis -recently discharged from [facility] was started on Jardiance 10 mg, hydralazine 25 mg twice daily and Lasix 40 mg -noncompliant of Lasix at home, question chf due to bradycardia and chronic AFib 3. Chronic atrial fibrillation -currently bradycardic , on metoprolol 25 mg and amiodarone 200 mg daily -hold beta-blockers -resume amiodarone -hold Coumadin today, INR 3.6 -consult Cardiology for medication adjustment 4. COPD -no acute exacerbation -resume Breo and continue albuterol 2 puffs q.6 hours as needed -supplemental O2 to maintain sats greater than equal to 90% 5. Diabetes type 2 -stable blood sugars, will add insulin sliding scale, on Jardiance for CHF -hemoglobin A1c 6.4, changed to diabetic diet 6. Transaminitis poor appetite, normal CPK, elevated total bili and alk-phos, normal hematocrit, no evidence of hemolysis, will obtain abdominal ultrasound. 7. Physical deconditioning will obtain PT eval prior to discharge Full code Warfarin elevated INR Patient will require continued inpatient hospitalization to treat YUMIKO and acute on chronic systolic heart failure according to specialty consult. This can not be achieved in less acute setting . Quality Stroke Does the patient have a stroke diagnosis?: No VTE Prior VTE?: No VTE Risk Level:: Medical - moderate - high VTE Device Contraindication: Treatment Not Indicated VTE Drug Contraindication: N/A - Med Ordered
[2024-04-27 14:43] VITALS: BP 131/49; PULSE 59; RESP 16; TEMP 36.3; O2SAT 92
[2024-04-27 14:55] VITALS: BMI 28.4
[2024-04-27 15:09] VITALS: RESP 20
[2024-04-27 15:17] LABS: INTERNATIONAL NORM RATIO 3.6 (0.9-1.1); Prothrombin Time 41.5 SEC (10.9-12.4)
[2024-04-27 19:10] VITALS: BP 144/65; PULSE 55; RESP 18; TEMP 36.1; O2SAT 96
[2024-04-27 19:50] LABS: Glucose, Whole Blood 140 mg/dL (60-115)
[2024-04-28] VITALS (7 sets, daily range): BP systolic 97–140; BP diastolic 55–65; PULSE 50–78; RESP 18–20; TEMP 36.1–36.8; O2SAT 92–94
[2024-04-28] MEDS: hydrOXYzine HCL 10 MG TABLET PO ×2 (00:32→19:40)
--- NOTE | 2024-04-28 07:00 | CA_ITS ---
Transthoracic Echocardiogram Patient (Last, First, Middle): Eder Farah, Gender: Male Date of : 1940 Age: 84 Procedure Date: 04/28/2024 Procedure Type: Transthoracic Echocardiogram Location: S3E Height: 167.64 cm Weight: 79.38 kg BSA: 1.89 m2 Heart Rate: bpm BP: 97 / 55 mmHg Seismic Prospecting Observer: SB Referring MD: Luisana Hall MD Venue Attendant: Brady Newton MD Symptoms: chf Study Quality: Adequate ECG Rhythm: Sinus Conclusions: - 1. Mildly dilated left ventricle with severely reduced LV ejection fraction 25-30% with grade 3 diastolic dysfunction 2. Severely dilated right ventricle with mildly reduced systolic function 3. Severely dilated left and right atrium 4. Mild mitral and tricuspid regurgitation 5. Moderately elevated right ventricular systolic pressure with significantly elevated right atrial pressures Findings Left Ventricle Mildly increased left ventricular cavity size. There is normal left ventricular wall thickness. The left ventricular systolic function is severely decreased. The visually estimated ejection fraction is between 25 30%. Spectral Doppler is indicative of a restrictive filling pattern. E/E prime ratio is >15, consistent with elevated filling pressures. Evidence suggests grade III (severe) diastolic dysfunction. Right Ventricle Severely increased right ventricular cavity size. There is mildly decreased right ventricular systolic function. There is an ICD wire seen in the right ventricle. Atria Severe biatrial enlargement. There is no evidence of interatrial shunt. Aortic Valve There is mild calcification of the aortic valve. There is mild thickening of the aortic valve. There is mild aortic valve stenosis. There is no aortic valve regurgitation. Mitral Valve There is mild anterior and posterior mitral leaflet thickening. The anterior mitral leaflet has restricted mobility and the posterior mitral leaflet has restricted mobility. There is mild mitral annular calcification. There is mild mitral valve regurgitation. There is no mitral valve stenosis. Pulmonic Valve The pulmonic valve was not well visualized. Tricuspid Valve Likely normal tricuspid valve structure and function. There is mild tricuspid valve regurgitation. Significantly elevated right atrial pressure. Moderate pulmonary hypertension is present. Great Vessels All visible segments of the aorta are normal in size. The pulmonary artery was not well visualized. There is no dilatation of the ascending aorta measuring 2.90 cm. Venous The inferior vena cava is severely dilated and collapses less than 50% with inspiration. Pericardium/Pleural There is no evidence of pericardial effusion. Prior Study Comparison Changes noted compared to prior study dated: 02/22/2024. LV ejection fraction measure to be better on this study. Measurements 2D Linear Measurements IVSd: 0.96 0.6-0.9/0.6-1.0 cm LVIDd: 5.57 3.9-5.3/4.2-5.9 cm LVIDd Index: 2.95 2.4-3.2/2.2-3.1 cm/m2 LVIDs: 4.29 2.0-3.6 cm LVPWd: 1.02 0.7-1.1 cm LA Diam: 5.60 2.7-3.8/3.0-4.0 cm LAIDs Index: 2.96 1.5-2.3 cm/m2 LV Mass: 267.51 67-162/88-224 g LV Mass Index: 141.54 43-95/49-115 g/m2 LVOT Diam: 2.20 3.0+(-)1.3 cm 2D Systolic Function EF 4C: 29.50 >55% EF 2C: 34.00 >55% EF BiP: 30.00 >55% Mitral Valve MV Pk E: 0.93 MV Decel Time: 149.00 E'Lateral: 4.13 E'Medial: 3.68 E/E' Med: 25.10 E/E' Lat: 22.40 PHT: 44.00 MVA PHT: 5.00 Decel [place]: 6.21 Aortic Valve AoV Pk Hieu: 2.27 AoV Mn Hieu: 1.43 AoV VTI: 0.55 AoV Pk Grad: 21.00 Aov Mn Grad: 10.00 QUAN Cont.VTI: 1.70 LVOT LVOT Pk Hieu: 1.01 LVOT Mn Hieu: 0.67 LVOT VTI: 0.24 LVOT Pk Grad: 4.00 LVOT Mn Grad: 2.00 LVOT Diam: 2.20 LVOT Area: 3.80 Diastolic Function MV Pk E: 0.93 E'Medial: 3.68 E/E' Med: 25.10 E' Laterial: 4.13 E/E' Lat: 22.40 Right Ventricle TAPSE (mm): 16.30 TVS' Hieu: 9.14 Tricuspid Valve TR Pk Hieu: 3.26 TR Pk Grad: 43.00 RA Press: 15.00 RVSP: 58.00 Great Vessels Aorta Sinus of Valsalva: 2.80 2.0-3.5 cm Ao Asc: 2.90 2.1-3.4 cm Pulmonary Valve PV Pk Hieu: 1.00 Peak PV Grad: 4.00 Updated in Other Vendor System with Status of Final Brady Newton MD electronically signed on 04/28/2024 12:12:32 PM with status of Final
[2024-04-28 07:17] LABS: INTERNATIONAL NORM RATIO 3.6 (0.9-1.1); Prothrombin Time 42.6 SEC (10.9-12.4)
[2024-04-28 07:28] LABS: Alanine Aminotransferase 24 U/L (0-40); Albumin Level 2.7 g/dL (3.5-5.0); Alkaline Phosphatase 269 U/L (39-117); Anion Gap 13 (12-20); Aspartate Amino Transferase 48 U/L (5-37); Bilirubin Direct 1.4 mg/dL (0.0-0.5); Bilirubin Total 2.2 mg/dL (0.0-1.0); Blood Urea Nitrogen 32 mg/dL (9-16); Calcium 8.7 mg/dL (8.4-10.2); Carbon Dioxide 28 mmol/L (22-29); Chloride 101 mmol/L (96-108); Creatinine Clr Calc Pharmacy 26.5; Estimated Glomerular Filt Rate 30; Glucose Random 99 mg/dL (60-115); Potassium 3.3 mmol/L (3.3-5.1); Sodium 139 mmol/L (135-145); Total Protein 6.1 g/dL (6.5-8.0)
[2024-04-28 07:53] LABS: Glucose, Whole Blood 113 mg/dL (60-115)
[2024-04-28] MEDS: Fluticasone/Vilanterol 100/25 BLST.W.DEV 1 PUFF INHALE (08:20)
[2024-04-28] MEDS: Empagliflozin 10 MG TABLET PO (08:53)
[2024-04-28] MEDS: 0.9 % Sodium Chloride Flush 3 ML SYRINGE IVFLUSH (08:53)
[2024-04-28] MEDS: Atorvastatin Calcium 40 MG TABLET PO (08:53)
[2024-04-28] MEDS: Amiodarone HCL 200 MG TABLET PO (08:53)
--- NOTE | 2024-04-28 09:28 | P.CONCA_ITS ---
History of Present Illness History of Present Illness Date of Service: 04/28/24 Requesting physician: Luisana Hall Consult reason: other (Cardiomyopathy, atrial fibrillation, failure to thrive) Chief complaint: FALL,KNEE SCRAPE,+HS,+COLLAR,WEAKNESS PER EMS Narrative: I was consulted to see Eder in cardiology consultation today. Has a very complicated past medical history with recent echocardiogram February showing severely reduced LV ejection fraction 15-20%, atrial fibrillation status post cardioversion currently on amiodarone as well as metoprolol therapy. Progressive kidney disease being followed by Nephrology as well as heart failure syndrome being on diuretics. Recently was increase on diuretic therapy 40 b.i.d. because of possible fluid retention. He said he was diuresing a lot and then reduced his Lasix by himself to 40 mg daily. He says since then he has urine output gone down. He has nonischemic cardiomyopathy. He came to the hospital after he tripped and fell on a rug. He said he has done that before but he could not get himself up and he was extremely weak. He called 911 was brought to the emergency room. In the emergency room he was noted to have further worsening kidney function. He was noted to be in bradycardia. His BNP was further elevated and he was given her dose of Lasix in the ED although he denies any shortness of breath, orthopnea, leg edema, abdominal distension. He denies any palpitations or lightheadedness. Said he was conscious all the time when he fell down. He denies any chest pain. Review of Systems 2 Constitutional: Constitutional: Reports frequent falls, Reports poor appetite and Reports weakness Eyes: Eyes: Reports no additional eye complaints Cardiovascular: Cardiovascular: Denies chest pain, Denies rapid heart rate, Denies lightheadedness, Denies Loss of Consciousness, Denies palpitations, Denies dyspnea and Denies orthopnea Respiratory: Respiratory: Reports no additional respiratory complaints and Denies dyspnea Gastrointestinal: Gastrointestinal: Reports no additional gastrointestinal complaints Musculoskeletal: Musculoskeletal: Reports no additional musculoskeletal complaints Integumentary/Breasts: Skin/Breast: Reports system reviewed and no additional complaints, except as docu Neurologic: Reports system reviewed and no additional complaints, except as documented, Reports frequent falls and Reports weakness Endocrine: Endocrine: Denies palpitations PMFSH Past Medical History Medical History (Updated 04/28/24 @ 09:33 by Brady Newton MD) Chronic a-fib Atherosclerotic cardiovascular disease Fatigue High triglycerides Erectile dysfunction Typical atrial flutter Nonischemic cardiomyopathy Hearing loss COPD (chronic obstructive pulmonary disease) Atrial fibrillation Elevated blood sugar Asthma Hyperlipidemia HTN (hypertension) Stroke Family History Family History Father Unknown family medical history Mother Unknown family medical history Surgical History Surgical History Presence of single chamber implantable cardioverter-defibrillator (ICD) History of appendectomy History of tonsillectomy Social History Social History Household Members: None Housing: Apartment Are you a primary client care consultant to a significant other at home: No Do you presently have visiting nurse or other home services: No Alcohol intake: current Alcohol intake frequency: holidays/special occasions only Patient Tobacco Use Status: Never used Tobacco Cigarettes Per Day: 1 Years Smoked: 70 +/- e-Cigarette/Vaping Use: Never Used Second Hand Smoke Exposure: No Advance Directives Date on File: 08/18/20 service: No Current occupational status: retired Cognitive needs: No Hearing needs: No Vision needs: No Meds Allergies Allergy/AdvReac Type Severity Reaction Status Date / Time lisinopril Allergy Intermediate Rash Verified 04/26/24 10:18 Active Medications: Current Medications Acetaminophen (Acetaminophen 325 Mg Tablet) 650 mg PO Q6H PRN PRN Reason: Pain, Mild (Pain Scale 1-3), fever or headache Albuterol Sulfate (Albuterol Sulfate 90 Mcg 8 Gm Inhaler) 2 puff INHALE Q6H PRN PRN Reason: Shortness Of Breath Amiodarone HCl (Amiodarone Hcl 200 Mg Tablet) 200 mg PO DAILY [facility] Last Admin: 04/28/24 08:53 Dose: 200 mg Atorvastatin Calcium (Atorvastatin Calcium 40 Mg Tablet) 40 mg PO DAILY [facility] Last Admin: 04/28/24 08:53 Dose: 40 mg Calcium Carbonate (Calcium Carbonate 750 Mg Tab.Chew) 750 mg PO Q4H PRN PRN Reason: Heartburn Empagliflozin (Empagliflozin 10 Mg Tablet) 10 mg PO DAILY [facility] Last Admin: 04/28/24 08:53 Dose: 10 mg Fluticasone/Vilanterol (Fluticasone/Vilanterol 100/25 Blst.W.Dev) 1 puff INHALE RDAILY [facility] Last Admin: 04/28/24 08:20 Dose: 1 puff Furosemide (Furosemide 40 Mg/4 Ml Vial) 20 mg IVPUSH DAILY [facility]; Protocol Glucose (Glucose Gel 15 Gm Gel..Gram.) 15 gm PO Q15M PRN; Protocol PRN Reason: per Hypoglycemia Standing Ord. Hydroxyzine HCl (Hydroxyzine Hcl 10 Mg Tablet) 10 mg PO TID PRN PRN Reason: itching Last Admin: 04/28/24 00:32 Dose: 10 mg Dextrose (D10) 250 mls @ 750 mls/hr IV Q15M PRN; Protocol PRN Reason: per Hypoglycemia Standing Ord. Insulin Human Lispro (Insulin Lispro 100 Unit/Ml 3 Ml Vial) 0 unit SUBCUT QIDACHS [facility]; Protocol Last Admin: 04/28/24 08:29 Dose: Not Given Magnesium Hydroxide (Milk Of Magnesia 30 Ml Oral.Susp) 30 ml PO DAILY PRN PRN Reason: Constipation Melatonin (Melatonin 3 Mg Tablet) 6 mg PO BEDTIME PRN PRN Reason: Insomnia Ondansetron HCl (Ondansetron Hcl 4 Mg/2 Ml Vial) 4 mg IVPUSH Q8H PRN PRN Reason: Nausea and Vomiting Sodium Chloride (0.9 % Sodium Chloride Flush 3 Ml Syringe) [facility] Last Admin: 04/28/24 08:53 Dose: 3 ml Trazodone HCl (Trazodone Hcl 100 Mg Tablet) 100 mg PO BEDTIME PRN PRN Reason: Sleep Warfarin Sodium (Warfarin Sodium 1 Mg Tablet) 1 mg PO @1799 [facility] Warfarin Sodium (Warfarin Sodium 2 Mg Tablet) 2 mg PO TUSA@1800 [facility] Home Medications ?Medication ?Instructions ?Recorded ?Confirmed ?Last Taken ?Type metoprolol succinate 25 mg 25 mg PO DAILY 02/22/24 04/26/24 02/21/24 History tablet,extended release 24 hr sildenafil 100 mg tablet 100 mg PO DAILY PRN Sexual Activity 02/22/24 04/26/24 Unknown History trazodone 100 mg tablet 100 mg PO BEDTIME PRN Sleep 02/22/24 04/26/24 Unknown History warfarin 2 mg tablet 1 mg PO WE@1800 02/22/24 04/26/24 02/21/24 History diphenhydramine HCl 25 mg tablet 25 mg PO BID PRN Itching 04/26/24 04/26/24 Unknown History (Benadryl Allergy) warfarin 2 mg tablet 2 mg PO TUSA@1800 04/26/24 04/26/24 Unknown History Physical Exam 2 Vital Signs: Vital Signs: Last Vital Signs Temp 96.9 F 04/28/24 07:46 Pulse 78 04/28/24 08:21 Resp 18 04/28/24 08:21 BP 132/61 04/28/24 07:46 Pulse Ox 92 04/28/24 07:46 O2 Del Method Room Air 04/28/24 07:46 BMI result Body Mass Index 28.4 Const: General: cooperative, comfortable, no acute distress, alert and awake Nutritional Appearance: average body habitus Orientation/consciousness: p atient oriented x3 Limitations: no limitations HEENT: Head: Yes normocephalic and Yes atraumatic Neck: Neck: Yes trachea midline, Yes supple and Yes no JVD Resp: Auscultation: clear to auscultation bilaterally Cardio: Jugular venous distension: no JVD Palpation: abnormal PMI displaced PMI Rate: regular rate Rhythm: regular rhythm Heart sounds: S1 normal heart sound present, S2 normal heart sound present, no click, no gallops and no murmurs GI: Auscultation: normal bowel sounds Skin: General skin exam: no rashes or lesions noted and ecchymosis Neuro: General: patient oriented x3 and no focal motor deficits Extrem: General: Yes no clubbing, cyanosis or edema Objective Labs and Meds 04/27/24 05:50 04/28/24 05:50 Lab results: Laboratory Results - last 24 hr 04/27/24 04/27/24 04/28/24 15:05 19:16 05:50 PT 41.5 H INR 3.6 H Sodium 139 Potassium 3.3 Chloride 101 Carbon Dioxide 28 Anion Gap 13 BUN 32 H Creatinine 2.09 H Estim Creat Clear Calc 26.5 Estimated GFR 30 POC Glucose 140 H Random Glucose 99 Calcium 8.7 Total Bilirubin 2.2 H Direct Bilirubin 1.4 H AST 48 H ALT 24 Alkaline Phosphatase 269 H Total Protein 6.1 L Albumin 2.7 L 04/28/24 04/28/24 05:51 07:45 PT 42.6 H INR 3.6 H Sodium Potassium Chloride Carbon Dioxide Anion Gap BUN Creatinine Estim Creat Clear Calc Estimated GFR POC Glucose 113 Random Glucose Calcium Total Bilirubin Direct Bilirubin AST ALT Alkaline Phosphatase Total Protein Albumin EKG shows sinus bradycardia with low-voltage QRS with left axis deviation with IV CD. Assessment and Plan (1) Paroxysmal atrial fibrillation: Status: Acute Patient presents with sinus bradycardia on fall and weakness and failure to thrive. This could be due to multifactorial given his dehydration acute kidney injury possibly causing him to have poor appetite. Currently his kidney functions have improved gradually. Bradycardia probably due to combination therapy with metoprolol and amiodarone. Would discontinue metoprolol therapy. Heart rate has improved after doing that. Not clearly an indication for pacemaker at this point in time. Continue amiodarone to maintain rhythm. Continue full oral anticoagulation, currently on warfarin. (2) Cardiomyopathy: Status: Acute Patient with prior severe cardiomyopathy LV ejection fraction still severely reduced at 15-20%. Clinically came with a fall and weakness and unable to get himself up. This could be related to over-diuresis causing YUMIKO and weakness. I would hold his Lasix for now. BNP elevated further probably due to reduced renal clearance. Clinically does appear to be at all in congestive heart failure. I would gently hydrate him at 50 cc an hour for the next 24 hours. Follow-up BNP and renal function tomorrow. Hold off on metoprolol due to bradycardia. Also can not use angiotensin receptor lindy due to progressive renal dysfunction. I would continue with hydralazine but switch her to twice a day as well as add Isordil 5 mg b.i.d. to his regimen to improve compliance with twice a day dosing. Continue Jardiance therapy. Overall prognosis is guarded. Physical therapy consultation to evaluate balance. Will sign of the case. Please re-consult if need be. Procedures Date of Service Date of Service: 04/28/24
[2024-04-28] MEDS: Furosemide 40 MG/4 ML VIAL 20 MG IVPUSH (10:28)
[2024-04-28 11:25] LABS: Glucose, Whole Blood 92 mg/dL (60-115)
--- NOTE | 2024-04-28 11:38 | MHC.CM.PN ---
RESIDENTIAL ADVISOR AND CM MET WITH PT PT LIVES AT HOME ALONE PT HAS VNA [facility]IA [facility] PT USES HAS ASSISTIVE DEVICES, BUT DOES NOT USE THEM HCP ON FILE PCP [facility] IMM DELIVERED PT NEEDS TRANSPORT HOME DC: HOME RESUME SERVICES VS STR PENDING PT EVAL
--- NOTE | 2024-04-28 11:47 | HO.PM.IMPN ---
Subjective Subjective Date of Service: 04/28/24 Interval History: Continued to feel tired weak with decreased appetite, is NPO for abdominal ultrasound, denies chest pain, no shortness of breath, no acute overnight events, no fevers, no chills. Review of Systems All other symptoms reviewed and are negative. Physical Exam Vital Signs: Vital Signs: Last Vital Signs Temp 96.9 F 04/28/24 07:46 Pulse 78 04/28/24 08:21 Resp 18 04/28/24 08:21 BP 132/61 04/28/24 07:46 Pulse Ox 92 04/28/24 07:46 O2 Del Method Room Air 04/28/24 07:46 BMI result Body Mass Index 28.4 Const: Other: General resting comfortably in no acute distress. Neck no JVD. CVS regular rate rhythm, Respiratory lungs clear to auscultation, no respiratory distress, no wheeze, no rhonchi. Gastrointestinal abdomen soft, non tender, bowel sounds audible Extremities no edema. Neuro non focal Skin no rash Appropriate affect Objective Data Active Medications Acetaminophen (Acetaminophen 325 Mg Tablet) 650 mg PO Q6H PRN PRN Reason: Pain, Mild (Pain Scale 1-3), fever or headache Albuterol Sulfate (Albuterol Sulfate 90 Mcg 8 Gm Inhaler) 2 puff INHALE Q6H PRN PRN Reason: Shortness Of Breath Amiodarone HCl (Amiodarone Hcl 200 Mg Tablet) 200 mg PO DAILY [facility] Last Admin: 04/28/24 08:53 Dose: 200 mg Documented By: LENNOX Atorvastatin Calcium (Atorvastatin Calcium 40 Mg Tablet) 40 mg PO DAILY [facility] Last Admin: 04/28/24 08:53 Dose: 40 mg Documented By: LENNOX Calcium Carbonate (Calcium Carbonate 750 Mg Tab.Chew) 750 mg PO Q4H PRN PRN Reason: Heartburn Empagliflozin (Empagliflozin 10 Mg Tablet) 10 mg PO DAILY [facility] Last Admin: 04/28/24 08:53 Dose: 10 mg Documented By: LENNOX Fluticasone/Vilanterol (Fluticasone/Vilanterol 100/25 Blst.W.Dev) 1 puff INHALE RDAILY [facility] Last Admin: 04/28/24 08:20 Dose: 1 puff Documented By: GILBERT Glucose (Glucose Gel 15 Gm Gel..Gram.) 15 gm PO Q15M PRN; Protocol PRN Reason: per Hypoglycemia Standing Ord. Hydroxyzine HCl (Hydroxyzine Hcl 10 Mg Tablet) 10 mg PO TID PRN PRN Reason: itching Last Admin: 04/28/24 00:32 Dose: 10 mg Documented By: JUSTYNA Dextrose (D10) 250 mls @ 750 mls/hr IV Q15M PRN; Protocol PRN Reason: per Hypoglycemia Standing Ord. Insulin Human Lispro (Insulin Lispro 100 Unit/Ml 3 Ml Vial) 0 unit SUBCUT QIDACHS [facility]; Protocol Last Admin: 04/28/24 11:39 Dose: Not Given Documented By: LENNOX Non-Admin Reason: No Insulin Coverage Magnesium Hydroxide (Milk Of Magnesia 30 Ml Oral.Susp) 30 ml PO DAILY PRN PRN Reason: Constipation Melatonin (Melatonin 3 Mg Tablet) 6 mg PO BEDTIME PRN PRN Reason: Insomnia Ondansetron HCl (Ondansetron Hcl 4 Mg/2 Ml Vial) 4 mg IVPUSH Q8H PRN PRN Reason: Nausea and Vomiting Sodium Chloride (0.9 % Sodium Chloride Flush 3 Ml Syringe) 3 ml IVFLUSH QSHIFT [facility] Last Admin: 04/28/24 08:53 Dose: 3 ml Documented By: LENNOX Trazodone HCl (Trazodone Hcl 100 Mg Tablet) 100 mg PO BEDTIME PRN PRN Reason: Sleep Warfarin Sodium (Warfarin Sodium 1 Mg Tablet) 1 mg PO SUMOWETHFR@1800 [facility] Warfarin Sodium (Warfarin Sodium 2 Mg Tablet) 2 mg PO TUSA@1800 [facility] Labs 04/27/24 05:50 04/28/24 05:50 Labs: Laboratory Results - last 24 hr 04/27/24 04/27/24 04/28/24 15:05 19:16 05:50 PT 41.5 H INR 3.6 H Anion Gap 13 Estim Creat Clear Calc 26.5 Estimated GFR 30 POC Glucose 140 H Random Glucose 99 Calcium 8.7 Total Bilirubin 2.2 H Direct Bilirubin 1.4 H AST 48 H ALT 24 Alkaline Phosphatase 269 H Total Protein 6.1 L Albumin 2.7 L 04/28/24 04/28/24 04/28/24 05:51 07:45 11:05 PT 42.6 H INR 3.6 H Anion Gap Estim Creat Clear Calc Estimated GFR POC Glucose 113 92 Random Glucose Calcium Total Bilirubin Direct Bilirubin AST ALT Alkaline Phosphatase Total Protein Albumin Assessment and Plan (1) Cardiomyopathy: Status: Acute (2) Paroxysmal atrial fibrillation: Status: Acute Plan 84-year-old male history of CHF, sinus bradycardia with ICD in place, CKD, sleep apnea, erectile dysfunction, diabetes, hyperkalemia, atrial fibrillation/flutter, nonischemic cardiomyopathy, HTN on chronic anticoagulation with warfarin presenting to the emergency department status post weakness, decreased p.o. intake, sob fall ongoing for the past few weeks. Workup consistent with YUMIKO on CKD along with overall failure to thrive 1. YUMIKO on CKD 3 -likely cardiorenal, creatinine improved to 2.09 -hold Lasix, give IV fluids 1 L -follow BMP 2. Acute on chronic systolic heart failure, ischemic cardiomyopathy status post AICD -s/p Lasix 40 IV x1, appears euvolumic -last echo 12/28/2022 showed EF 30-35% moderate pulmonary hypertension and global hypokinesis -recently discharged from [facility] was started on Jardiance 10 mg, hydralazine 25 mg twice daily , cardio recommend to add Isordil 5 mg b.i.d. and hold Lasix 40 mg -question chf due to bradycardia and chronic AFib 3. Chronic atrial fibrillation -currently bradycardic , on metoprolol 25 mg and amiodarone 200 mg daily -dc beta-blockers -cont amiodarone -hold Coumadin today, INR 3.6 -consult Cardiology for medication adjustment 4. COPD -no acute exacerbation -continue Breo and continue albuterol 2 puffs q.6 hours as needed -supplemental O2 to maintain sats greater than equal to 90% 5. Diabetes type 2 -stable blood sugars, on insulin sliding scale, on Jardiance for CHF -hemoglobin A1c 6.4, changed to diabetic diet 6. Transaminitis poor appetite, normal CPK, elevated total bili and alk-phos, normal hematocrit, no evidence of hemolysis, abdominal ultrasound. 7. Physical deconditioning will obtain PT eval prior to discharge Full code Warfarin elevated INR Patient will require continued inpatient hospitalization to treat YUMIKO and for acute on chronic systolic heart failure management. Quality Stroke Does the patient have a stroke diagnosis?: No VTE Prior VTE?: No VTE Risk Level:: Medical - moderate - high VTE Device Contraindication: Treatment Not Indicated VTE Drug Contraindication: N/A - Med Ordered
[2024-04-28] MEDS: 0.9 % Sodium Chloride 1,000 ML 50 ML IVCONT (11:54)
--- NOTE | 2024-04-28 13:04 | MHC.CLN ---
NUTRITION CONSULT FOR WEIGHT LOSS, POOR PO AND LOSS OF TASTE. REVIEW OF WEIGHT HX SHOWS WEIGHT LOSS TREND, NOT SIGNIFICANT. WEIGHT LOSS X 6 MONTHS -8%, WEIGHT LOSS X ONE YEAR -14%. REPORTED DECREASE IN PO X SEVERAL WEEKS PRIOR TO ADM. ADDING ENSURE BID TO PROMOTE NUTRITIONAL INTAKE. SUPPLEMENT PROVIDES 700 KCALS, [address] TO MONITOR WEEKLY.
[2024-04-28 13:30] LABS: Appearance Urine Clear; Color Urine Yellow; Glucose Urine UA 500 mg/dL (Negative); Leukocyte Esterase Urine Small (1+) (Negative); Nitrite Urine Negative (Negative); PH 5.5 (5.0-9.0); UMIC TRIGGER UACC YES; Urine Blood Negative (Negative); Urine Ketones Negative (Negative); Urine Protein Negative (Neg-Trace)
[2024-04-28 13:38] LABS: Bacteria Urine None Seen (None Seen); RBC Urine 0-2 /HPF (0-2); Squamous Epithelial Cell Urine 0-2 /HPF (0-2); UACC Culture Trigger YES
[2024-04-28 16:15] LABS: Glucose, Whole Blood 86 mg/dL (60-115)
[2024-04-28 20:15] LABS: Glucose, Whole Blood 89 mg/dL (60-115)
[2024-04-28] MEDS: Albuterol Sulfate 90 MCG 8 GM INHALER 2 PUFF INHALE (21:21)
[2024-04-29] VITALS (7 sets, daily range): BP systolic 103–156; BP diastolic 55–71; PULSE 51–84; RESP 15–20; TEMP 36.2–36.8; O2SAT 93–98
[2024-04-29 06:05] LABS: Hematocrit 34.6 % (42.0-52.0); Hemoglobin 11.3 g/dl (14.0-18.0); Mean Corpuscular HGB Conc 32.7 g/dl (31.0-36.0); Mean Corpuscular Hemoglobin 29.9 pg (27.0-33.0); Mean Corpuscular Volume 91.5 fL (80.0-98.0); Platelet Count 157 X10*3/uL (160-400); Red Blood Count 3.78 X10*6/uL (4.60-5.80); Red Cell Distribution Width 21.3 % (11.0-16.0)
[2024-04-29 06:29] LABS: Anion Gap 16 (12-20); Blood Urea Nitrogen 26 mg/dL (9-16); Calcium 8.7 mg/dL (8.4-10.2); Carbon Dioxide 27 mmol/L (22-29); Chloride 103 mmol/L (96-108); Creatinine Clr Calc Pharmacy 31.9; Estimated Glomerular Filt Rate 38; Glucose Random 79 mg/dL (60-115); Potassium 3.1 mmol/L (3.3-5.1); Sodium 143 mmol/L (135-145)
[2024-04-29 07:46] LABS: Glucose, Whole Blood 86 mg/dL (60-115)
[2024-04-29] MEDS: Fluticasone/Vilanterol 100/25 BLST.W.DEV 1 PUFF INHALE (08:24)
[2024-04-29 08:49] LABS: INTERNATIONAL NORM RATIO 3.2 (0.9-1.1); Prothrombin Time 37.4 SEC (10.9-12.4)
[2024-04-29] MEDS: Potassium Chloride ER 20 MEQ TAB.ER.PRT 40 MEQ PO (09:01)
[2024-04-29] MEDS: Atorvastatin Calcium 40 MG TABLET PO (09:02)
[2024-04-29] MEDS: Empagliflozin 10 MG TABLET PO (09:02)
[2024-04-29] MEDS: Amiodarone HCL 200 MG TABLET PO (09:02)
[2024-04-29] MEDS: Isosorbide Dinitrate 5 MG TABLET PO (09:02)
[2024-04-29] MEDS: 0.9 % Sodium Chloride Flush 3 ML SYRINGE IVFLUSH ×3 (09:04→21:19)
[2024-04-29 11:26] LABS: Glucose, Whole Blood 117 mg/dL (60-115)
--- NOTE | 2024-04-29 12:52 | MHC.CM.PN ---
PT HAS BEEN ACCEPTED BY [facility] PENDING INSURANCE AUTH. PT IS AGREEABLE TO THIS OFFER. [facility] HAS STARTED AUTH PROCESS, CM WILL CONTINUE TO FOLLOW.
--- NOTE | 2024-04-29 13:07 | P.PNIM_ITS ---
Subjective Subjective Date of Service: 04/29/24 Interval History: Feeling better this morning offers no acute complaints, denies chest pain, no palpitations complaining of itching upper back, no fevers, no chills, no acute events overnight. Review of Systems All other symptoms reviewed and are negative Physical Exam 2 Vital Signs: Vital Signs: Last Vital Signs Temp 97.1 F 04/29/24 07:35 Pulse 84 04/29/24 08:26 Resp 16 04/29/24 08:26 BP 156/71 H 04/29/24 07:35 Pulse Ox 98 04/29/24 07:35 O2 Del Method Room Air 04/29/24 07:35 BMI result Body Mass Index 28.4 Const: Other: General resting comfortably in no acute distress. Neck no JVD. CVS regular rate rhythm, Respiratory lungs clear to auscultation, no respiratory distress, no wheeze, no rhonchi. Gastrointestinal abdomen soft, non tender, bowel sounds audible Extremities no edema. Neuro non focal Skin no rash Appropriate affect Objective Data Active Medications Acetaminophen (Acetaminophen 325 Mg Tablet) 650 mg PO Q6H PRN PRN Reason: Pain, Mild (Pain Scale 1-3), fever or headache Albuterol Sulfate (Albuterol Sulfate 90 Mcg 8 Gm Inhaler) 2 puff INHALE Q6H PRN PRN Reason: Shortness Of Breath Last Admin: 04/28/24 21:21 Dose: 2 puff Documented By: JUSTYNA Amiodarone HCl (Amiodarone Hcl 200 Mg Tablet) 200 mg PO DAILY [facility] Last Admin: 04/29/24 09:02 Dose: 200 mg Documented By: ALEJANDRO Atorvastatin Calcium (Atorvastatin Calcium 40 Mg Tablet) 40 mg PO DAILY [facility] Last Admin: 04/29/24 09:02 Dose: 40 mg Documented By: ALEJANDRO Calcium Carbonate (Calcium Carbonate 750 Mg Tab.Chew) 750 mg PO Q4H PRN PRN Reason: Heartburn Empagliflozin (Empagliflozin 10 Mg Tablet) 10 mg PO DAILY [facility] Last Admin: 04/29/24 09:02 Dose: 10 mg Documented By: ALEJANDRO Fluticasone/Vilanterol (Fluticasone/Vilanterol 100/25 Blst.W.Dev) 1 puff INHALE RDAILY [facility] Last Admin: 04/29/24 08:24 Dose: 1 puff Documented By: SHUN Glucose (Glucose Gel 15 Gm Gel..Gram.) 15 gm PO Q15M PRN; Protocol PRN Reason: per Hypoglycemia Standing Ord. Hydroxyzine HCl (Hydroxyzine Hcl 10 Mg Tablet) 10 mg PO TID PRN PRN Reason: itching Last Admin: 04/28/24 19:40 Dose: 10 mg Documented By: JUSTYNA Dextrose (D10) 250 mls @ 750 mls/hr IV Q15M PRN; Protocol PRN Reason: per Hypoglycemia Standing Ord. Insulin Human Lispro (Insulin Lispro 100 Unit/Ml 3 Ml Vial) 0 unit SUBCUT QIDACHS [facility]; Protocol Last Admin: 04/29/24 11:30 Dose: Not Given Documented By: ALEJANDRO Non-Admin Reason: No Insulin Coverage Isosorbide Dinitrate (Isosorbide Dinitrate 5 Mg Tablet) 5 mg PO BID [facility]; Protocol Last Admin: 04/29/24 09:02 Dose: 5 mg Documented By: ALEJANDRO Magnesium Hydroxide (Milk Of Magnesia 30 Ml Oral.Susp) 30 ml PO DAILY PRN PRN Reason: Constipation Melatonin (Melatonin 3 Mg Tablet) 6 mg PO BEDTIME PRN PRN Reason: Insomnia Ondansetron HCl (Ondansetron Hcl 4 Mg/2 Ml Vial) 4 mg IVPUSH Q8H PRN PRN Reason: Nausea and Vomiting Sodium Chloride (0.9 % Sodium Chloride Flush 3 Ml Syringe) [facility] Last Admin: 04/29/24 09:04 Dose: 3 ml Documented By: ALEJANDRO Trazodone HCl (Trazodone Hcl 100 Mg Tablet) 100 mg PO BEDTIME PRN PRN Reason: Sleep Warfarin Sodium (Warfarin Sodium 1 Mg Tablet) 1 mg PO SUMOWETHFR@1800 [facility] Warfarin Sodium (Warfarin Sodium 2 Mg Tablet) 2 mg PO TUSA@1800 [facility] Labs 04/29/24 05:26 04/29/24 05:26 Labs: Laboratory Results - last 24 hr 04/28/24 04/28/24 04/28/24 13:13 16:05 20:07 MCV MCH MCHC RDW Plt Count MPV Absolute Nucleated RBC Nucleated RBC % (auto) Hold Purple Top PT INR Anion Gap Estim Creat Clear Calc Estimated GFR POC Glucose 86 89 Random Glucose Calcium Urine Color Yellow Urine Appearance Clear Urine pH 5.5 Ur Specific [place] 1.010 Urine Protein Negative Urine Glucose (UA) 500 H Urine Ketones Negative Urine Blood Negative Urine Nitrite Negative Ur Leukocyte Esterase Small (1+) H Urine RBC 0-2 Urine WBC 11-20 H Ur Squamous Epith Cells 0-2 Urine Bacteria None Seen Hyaline Casts 3-5 04/29/24 04/29/24 04/29/24 05:26 07:36 08:10 MCV 91.5 MCH 29.9 MCHC 32.7 RDW 21.3 H Plt Count 157 L MPV 12.0 Absolute Nucleated RBC 0.000 Nucleated RBC % (auto) 0.0 Hold Purple Top SEE NOTE PT 37.4 H INR 3.2 H Anion Gap 16 Estim Creat Clear Calc 31.9 Estimated GFR 38 POC Glucose 86 Random Glucose 79 Calcium 8.7 Urine Color Urine Appearance Urine pH Ur Specific [place] Urine Protein Urine Glucose (UA) Urine Ketones Urine Blood Urine Nitrite Ur Leukocyte Esterase Urine RBC Urine WBC Ur Squamous Epith Cells Urine Bacteria Hyaline Casts 04/29/24 11:17 MCV MCH MCHC RDW Plt Count MPV Absolute Nucleated RBC Nucleated RBC % (auto) Hold Purple Top PT INR Anion Gap Estim Creat Clear Calc Estimated GFR POC Glucose 117 H Random Glucose Calcium Urine Color Urine Appearance Urine pH Ur Specific [place] Urine Protein Urine Glucose (UA) Urine Ketones Urine Blood Urine Nitrite Ur Leukocyte Esterase Urine RBC Urine WBC Ur Squamous Epith Cells Urine Bacteria Hyaline Casts Microbiology Microbiology Results: Microbiology 04/28/24 Unknown Urine Culture - Preliminary Urine clean catch - Clean Catch Midstream Enterococcus/Streptococcus sp Assessment and Plan (1) Cardiomyopathy: Status: Acute (2) Paroxysmal atrial fibrillation: Status: Acute Plan 84-year-old male history of CHF, sinus bradycardia with ICD in place, CKD, sleep apnea, erectile dysfunction, diabetes, hyperkalemia, atrial fibrillation/flutter, nonischemic cardiomyopathy, HTN on chronic anticoagulation with warfarin presenting to the emergency department status post weakness, decreased p.o. intake, sob fall ongoing for the past few weeks. Workup consistent with YUMIKO on CKD along with overall failure to thrive 1. YUMIKO on CKD 3 -likely cardiorenal, creatinine improved to 1.74 to baseline -status post IV fluid will resume Lasix 40 mg at a.m. and 20 mg at p.m. -follow BMP 2. Acute on chronic systolic heart failure, ischemic cardiomyopathy status post AICD -s/p Lasix 40 IV x1, appears euvolumic -last echo 12/28/2022 showed EF 30-35% moderate pulmonary hypertension and global hypokinesis -recently discharged from [facility] was started on Jardiance 10 mg, hydralazine 25 mg twice daily , Isordil 5 mg b.i.d.added Will resume Lasix 40/20 -question chf due to bradycardia and chronic AFib 3. Chronic atrial fibrillation -initially noted to be bradycardic now noted to have intermittent short-lived episodes of atrial flutter with heart rate in 170s patient remains asymptomatic Beta-blockers were held due to bradycardia will place on low-dose metoprolol 12.5 mg q.6 hours -cont amiodarone -resume Coumadin today, INR 3.2 4. COPD -no acute exacerbation -continue Breo and continue albuterol 2 puffs q.6 hours as needed -supplemental O2 to maintain sats greater than equal to 90% 5. Diabetes type 2 -stable blood sugars, on insulin sliding scale, on Jardiance for CHF -hemoglobin A1c 6.4, on diabetic diet 6. Transaminitis poor appetite, normal CPK, elevated total bili and alk-phos, normal hematocrit, no evidence of hemolysis, abdominal ultrasound showed nonspecific gallbladder wall thickening with small amount of pericholecystic fluid, no gallstones, no biliary dilatation some patient asymptomatic, no evidence of acute cholecystitis follow LFTs.. 7. Physical deconditioning PT recommend short-term rehab Full code Warfarin elevated INR Patient will require continued inpatient hospitalization to treat YUMIKO and for acute on chronic systolic heart failure management. Quality Stroke Does the patient have a stroke diagnosis?: No VTE Prior VTE?: No VTE Risk Level:: Medical - moderate - high VTE Device Contraindication: Treatment Not Indicated VTE Drug Contraindication: N/A - Med Ordered
[2024-04-29] MEDS: Metoprolol Tartrate 5 MG/5 ML VIAL IVPUSH (15:15)
[2024-04-29 16:23] LABS: Glucose, Whole Blood 102 mg/dL (60-115)
[2024-04-29] MEDS: Warfarin Sodium 2 MG TABLET PO (17:51)
[2024-04-29 19:59] LABS: Glucose, Whole Blood 119 mg/dL (60-115)
[2024-04-29] MEDS: traZODone HCL 100 MG TABLET PO (21:10)
[2024-04-29] MEDS: hydrOXYzine HCL 10 MG TABLET PO (21:13)
[2024-04-30 06:18] LABS: INTERNATIONAL NORM RATIO 3.3 (0.9-1.1); Prothrombin Time 38.4 SEC (10.9-12.4)
[2024-04-30 06:28] LABS: Alanine Aminotransferase 22 U/L (0-40); Albumin Level 2.7 g/dL (3.5-5.0); Anion Gap 15 (12-20); Aspartate Amino Transferase 52 U/L (5-37); Bilirubin Direct 1.5 mg/dL (0.0-0.5); Bilirubin Total 2.6 mg/dL (0.0-1.0); Blood Urea Nitrogen 18 mg/dL (9-16); Carbon Dioxide 22 mmol/L (22-29); Chloride 106 mmol/L (96-108); Creatinine Clr Calc Pharmacy 39.4; Estimated Glomerular Filt Rate 48; Glucose Random 99 mg/dL (60-115); Potassium 4.2 mmol/L (3.3-5.1); Sodium 139 mmol/L (135-145); Total Protein 6.3 g/dL (6.5-8.0)
[2024-04-30 06:41] LABS: Alkaline Phosphatase 263 U/L (39-117)
[2024-04-30 07:28] VITALS: BP 110/55; PULSE 54; RESP 18; TEMP 36.4; O2SAT 94
[2024-04-30 07:41] LABS: Glucose, Whole Blood 96 mg/dL (60-115)
[2024-04-30 08:16] VITALS: PULSE 90; RESP 16; O2SAT 93
[2024-04-30] MEDS: Fluticasone/Vilanterol 100/25 BLST.W.DEV 1 PUFF INHALE (08:16)
[2024-04-30] MEDS: Amiodarone HCL 200 MG TABLET PO (09:28)
[2024-04-30] MEDS: 0.9 % Sodium Chloride Flush 3 ML SYRINGE IVFLUSH (09:28)
[2024-04-30] MEDS: Atorvastatin Calcium 40 MG TABLET PO (09:28)
[2024-04-30] MEDS: Isosorbide Dinitrate 5 MG TABLET PO (09:28)
[2024-04-30] MEDS: Empagliflozin 10 MG TABLET PO (09:29)
--- NOTE | 2024-04-30 10:24 | PM.DS ---
DS: Providers Provider Date of Service: 04/30/24 Date of admission: 04/26/24 15:22 Date of discharge: 04/30/24 Primary care physician: Dagoberto Childs [facility] Consults: 04/27/24 14:37 Consult to Cardiology Routine Consulting Provider[place] [facility] Reason for consultation: chf Has provider been notified: No DS: Diagnosis Discharge Diagnosis (1) Cardiomyopathy: Status: Acute (2) Paroxysmal atrial fibrillation: Status: Acute DS: Summary Hospital Course Hospital Course: History of presenting illness: Date of Service: 04/26/24 Chief Complaint: Acute kidney injury 84-year-old male history of CHF, sinus bradycardia with ICD in place, CKD, sleep apnea, erectile dysfunction, diabetes, hyperkalemia, atrial fibrillation/flutter, nonischemic cardiomyopathy, HTN on chronic anticoagulation with warfarin presenting to the emergency department status post weakness, decreased p.o. intake, sob fall ongoing for the past few weeks. Today he had a fall he states he slipped, fell, hit his head, did not lose consciousness. He states he is feeling fine he does not have a headache or neck pain. EMS tried to call her patient however he refused. He does state that after the fall he started experiencing right-sided knee pain. Denies preceding symptoms to fall. Denies chest pain, nausea, vomiting, abdominal pain, headache, vision changes, dizziness and weakness. In ER, found to have acute kidney injury on chronic kidney disease and overall failure to thrive as patient states he has not been eating well for several weeks and has been progressively weak. Hospital course: 84-year-old male history of CHF, sinus bradycardia with ICD in place, CKD, sleep apnea, erectile dysfunction, diabetes, hyperkalemia, atrial fibrillation/flutter, nonischemic cardiomyopathy, HTN on chronic anticoagulation with warfarin presented to the emergency department due to weakness, decreased p.o. intake, sob, fall ongoing for the past few weeks. Workup consistent with YUMIKO on CKD along with overall failure to thrive. 1. YUMIKO on CKD 3 likely cardiorenal, creatinine improved to 1.4 , therefore low-dose Lasix 40 mg started, previously patient was on Lasix 40 mg twice daily follow periodic BMP. 2. Acute on chronic systolic heart failure, ischemic cardiomyopathy status post AICD, initially treated with 1 dose of IV Lasix subsequently patient appeared euvolemic therefore Lasix was held, and echocardiogram showed an EF of 25-30%, grade 3 severe diastolic dysfunction, severely increased right ventricular cavity site and severe biatrial enlargement, patient seen by reclamation supervisor they recommend to continue Jardiance 10 mg, hydralazine 10 mg twice daily , Isordil 5 mg b.i.d. Lasix 40 mg daily, recommend outpatient follow-up with primary reclamation supervisor Dr. Mccullough call for appointment in 2-3 weeks. 3. Chronic atrial fibrillation noted to have bradycardia therefore metoprolol discontinued, patient continued on amiodarone and Coumadin noted to have elevated INR of 3.3 today recommend to hold Coumadin and follow PT INR at a.m. and resume Coumadin to keep INR 2-3 4. COPD no acute exacerbation noted recommend to continue home inhalers, stable oxygenation 94% on room air. 5. Diabetes type 2 stable blood sugars continue Jardiance, hemoglobin A1c 6.4 continue diabetic diet. 6. Transaminitis patient asymptomatic question etiology, LFTs remained stable, abdominal ultrasound showed nonspecific gallbladder wall thickening with small amount of pericholecystic fluid, no gallstones, no biliary dilatation no evidence of acute cholecystitis , recommend periodic follow-up of LFTs. Time Attestation Discharge Coordination Time (in mins): 40 Quality: Safe Use of Opioids Does Pt have an Active Cancer Diagnosis on the Problem List?: No Quality: Stroke Does the patient have a stroke diagnosis?: No Physical Exam Vital Signs: Vital Signs: Last Vital Signs Temp 97.5 F 04/30/24 07:28 Pulse 90 04/30/24 08:16 Resp 16 04/30/24 08:16 BP 110/55 L 04/30/24 07:28 Pulse Ox 94 04/30/24 07:28 O2 Del Method Room Air 04/30/24 07:28 BMI result Body Mass Index 28.4 Const: Other: General resting comfortably in no acute distress. Neck no JVD. CVS regular rate rhythm, Respiratory lungs clear to auscultation, no respiratory distress, no wheeze, no rhonchi. Gastrointestinal abdomen soft, non tender, bowel sounds audible Extremities no edema. Neuro non focal Skin no rash Appropriate affect DS: Data Data Completed and Pending Labs on day of discharge: Laboratory Results - last 24 hr 04/29/24 04/29/24 04/29/24 11:17 16:13 19:44 Hold Purple Top PT INR Sodium Potassium Chloride Carbon Dioxide Anion Gap BUN Creatinine Estim Creat Clear Calc Estimated GFR POC Glucose 117 H 102 119 H Random Glucose Calcium Total Bilirubin Direct Bilirubin AST ALT Alkaline Phosphatase Total Protein Albumin 04/30/24 04/30/24 05:29 07:26 Hold Purple Top SEE NOTE PT 38.4 H INR 3.3 H Sodium 139 Potassium 4.2 D Chloride 106 Carbon Dioxide 22 Anion Gap 15 BUN 18 H Creatinine 1.41 H Estim Creat Clear Calc 39.4 Estimated GFR 48 POC Glucose 96 Random Glucose 99 Calcium 9.0 Total Bilirubin 2.6 H Direct Bilirubin 1.5 H AST 52 H ALT 22 Alkaline Phosphatase 263 H Total Protein 6.3 L Albumin 2.7 L Discharge Plan Discharge Anticipated Discharge Date/Time: 04/30/24 10:17 Patient Disposition: Xfer SNF Discharge Diagnosis: YUMIKO on chronic kidney disease Acute on chronic CHF with reduced EF Chronic AFib Referrals: [facility] [Outside] - 1 Week (TRANSFER FOR SHORT TERM REHAB) Dagoberto Childs FNP-BC [Primary Care Provider] - 1 Week Discharge Medications: New furosemide 40 mg Tablet 40 mg PO DAILY Qty: 30 0RF Protocol: Hold for SBP< HOLD for SBP < : 90 hydralazine 10 mg tablet 10 mg PO BID Qty: 60 0RF Continued (DME) blood-glucose meter [OneTouch Ultra2 Meter] Misc See Rx Instructions .Route Qty: 1 0RF Rx Instructions: Use to check fasting blood sugar and a random sugar daily (DME) OneTouch Ultra Test Strip See Rx Instructions .Route Qty: 100 5RF Rx Instructions: Use to check fasting blood sugar and a random sugar daily (DME) lancets [Onetouch Delica Safety Lancet] 30 gauge misc See Rx Instructions .Route Qty: 100 5RF Rx Instructions: Use to check fasting blood sugar and a random sugar daily atorvastatin 40 mg tablet 40 mg PO DAILY 90 Days Qty: 90 1RF albuterol sulfate 90 mcg/actuation HFA aerosol inhaler 2 puff inhalation Q6H PRN (Reason: Shortness Of Breath) 30 Days Qty: 8.5 3RF amiodarone 200 mg tablet 200 mg PO DAILY Qty: 90 3RF Breo Ellipta 100-25 mcg/dose blister with device 1 ea inhalation DAILY Qty: 180 1RF trazodone 100 mg tablet 100 mg PO BEDTIME PRN (Reason: Sleep) Jardiance 10 mg Tablet 10 mg PO DAILY Qty: 90 0RF diphenhydramine HCl [Benadryl Allergy] 25 mg Tablet 25 mg PO BID PRN (Reason: Itching) Held warfarin 2 mg tablet 1 mg PO @1800 Hold Instructions: Resume on 05/01/24. Discontinued metoprolol succinate 25 mg tablet extended release 24 hr 25 mg PO DAILY sildenafil 100 mg tablet 100 mg PO DAILY PRN (Reason: Sexual Activity) Rx Instructions: TAKE 1 TABLET NEEDED BY MOUTH 30 MINUTES TO 4 HOURS BEFORE SEXUAL ACTIVITY hydralazine 25 mg Tablet 25 mg PO TID Qty: 270 0RF Protocol: Hold for SBP< HOLD for SBP < : 90 warfarin 2 mg tablet 2 mg PO @1800 Protocol: Dose Management Condition: Sunday (Week One) Dose/Route: 2 mg Instruction: 1 x 2 mg tablet Condition: Sunday Dose/Route: 2.5 mg Instruction: 1 x 2.5 mg tablet Condition: Sunday Dose/Route: 2 mg Instruction: 1 x 2 mg tablet Condition: Sunday Dose/Route: 5 mg Instruction: 2 x 2.5 mg tablets Condition: Dose/Route: 2.5 mg Instruction: 1 x 2.5 mg tablet Condition: Sunday Dose/Route: 2 mg Instruction: 1 x 2 mg tablet Condition: Sunday Dose/Route: 2.5 mg Instruction: 1 x 2.5 mg tablet Condition: Sunday (Week Two) Dose/Route: 2 mg Instruction: 1 x 2 mg tablet Condition: Sunday Dose/Route: 2.5 mg Instruction: 1 x 2.5 mg tablet Condition: Sunday Dose/Route: 2 mg Instruction: 1 x 2 mg tablet Condition: Sunday Dose/Route: 5 mg Instruction: 2 x 2.5 mg tablets Condition: Dose/Route: 2.5 mg Instruction: 1 x 2.5 mg tablet Condition: Sunday Dose/Route: 2 mg Instruction: 1 x 2 mg tablet Condition: Sunday Dose/Route: 2.5 mg Instruction: 1 x 2.5 mg tablet Protocol Text: Adjustment Start Date: Sunday12/07/20 INR Value: 2.5 INR Date: 12/07/20 Recheck Date: 12/21/20 Additional Instructions: pt aware to continue with routine dosing and repeat INR in 2 weeks. hydroxyzine HCl 10 mg tablet 10 mg PO TID PRN (Reason: itching) 5 Days Qty: 15 0RF Discharge Orders: Discharge Order (Routine); Ordered 04/30/24 Ordered By: Luisana Hall Diet: Diabetic diet Activity on Discharge: As tolerated Stand Alone Forms: Patient Portal Discharge page Print Language: Vietnamese Care Plan Goals: Acute on chronic kidney disease resolved Acute on chronic CHF with reduced EF compensated Take Lasix 40 mg daily, hydralazine 10 mg twice daily and Isordil 5 mg b.i.d. do not take Viagra with Isordil In regard to atrial fibrillation INR 3.3 on 04 30 therefore hold Coumadin today follow PT INR daily resume Coumadin to keep INR 2-3 Health Concerns: Atrial fibrillation DAILY PT INR KEEP INR 2-3 COUMADIN ON HOLD/RESUME AFTER CHECKING INR AT A.M. Plan of Treatment: Outpatient follow-up with Dr. Mccullough reclamation supervisor call for appointment Assessment: As above Patient Instructions: Heart Failure (DC), A-fib (Atrial Fibrillation) (DC), Restrictive Cardiomyopathy (DC)
--- NOTE | 2024-04-30 11:22 | MHC.CM.PN ---
DP: PT HAS BEEN MEDICALLY CLEARED FOR DC TO STR AT [facility]. CENTER HAS OBTAINED INSURANCE AUTH. BLS TRANSPORT BOOKED FOR 12:30 PM VIA [facility]. RN UPDATED. PT IS AGREEABLE TO PLAN.
[2024-04-30 11:36] LABS: Glucose, Whole Blood 103 mg/dL (60-115)
== END 2024-04-30 14:07 | disposition skilled nursing facility (03) | DRG 292 ==
LOC: HO.ED 14:35 → HO.EDOVER 15:33 → HO.S3 04-27 12:15
PROVIDERS: Physician Assistant; Admitting Provider Hospitalist; Emergency Provider Emergency Medicine; PCP Nurse Practitioner Family; Visit Provider Hospitalist
DX: I50.23 Acute on chronic systolic (congestive) heart failure (principal); I13.0 Hypertensive heart and chronic kidney disease with heart failure and stage 1 through stage 4 chronic kidney disease, or unspecified chronic kidney disease; N17.9 Acute kidney failure, unspecified; R53.81 Other malaise; I25.10 Atherosclerotic heart disease of native coronary artery without angina pectoris; I25.5 Ischemic cardiomyopathy; R74.01 Elevation of levels of liver transaminase levels; I27.20 Pulmonary hypertension, unspecified; R00.1 Bradycardia, unspecified; E11.22 Type 2 diabetes mellitus with diabetic chronic kidney disease; Z91.148 Patient's other noncompliance with medication regimen for other reason; N18.30 Chronic kidney disease, stage 3 unspecified; I48.0 Paroxysmal atrial fibrillation; R79.1 Abnormal coagulation profile; Z95.810 Presence of automatic (implantable) cardiac defibrillator; Z79.01 Long term (current) use of anticoagulants; Z79.899 Other long term (current) drug therapy
CPT/HCPCS: 36415; 70450; 71045; 72125; 73560; 76700; 80048; 80053; 80076; 81001; 82550; 82947; 83735; 83880; 84484; 85025; 85027; 85610; 87086; 87088; 87186; 93005; 93306; 94640; 94799; 97116; 97162; 99212; 99285; J1940; J3475; Q9957

== ENCOUNTER → 2024-04-26 10:31 | Outpatient (BNV) | payer OTHER, SELFPAY | PROVIDERS: Admitting Provider Hospitalist; Emergency Provider Emergency Medicine; PCP Nurse Practitioner Family; Visit Provider Internal Medicine Cardiovascular Disease | DX: R00.1 Bradycardia, unspecified (principal); I44.0 Atrioventricular block, first degree; R94.31 Abnormal electrocardiogram [ECG] [EKG] | CPT/HCPCS: 93010 ==

== ENCOUNTER 2024-04-26 15:22 | Outpatient (BNV) | payer OTHER, SELFPAY | END 2024-04-28 07:00 | PROVIDERS: Admitting Provider Hospitalist; Emergency Provider Emergency Medicine; PCP Nurse Practitioner Family; Visit Provider Internal Medicine Cardiovascular Disease | DX: I35.0 Nonrheumatic aortic (valve) stenosis (principal); I50.40 Unspecified combined systolic (congestive) and diastolic (congestive) heart failure; I51.7 Cardiomegaly | CPT/HCPCS: 93306 ==

== ENCOUNTER → 2024-04-26 15:22 | Outpatient (BNV) | payer OTHER, SELFPAY | PROVIDERS: Admitting Provider Hospitalist; Emergency Provider Emergency Medicine; PCP Nurse Practitioner Family; Visit Provider Internal Medicine Cardiovascular Disease | DX: I48.0 Paroxysmal atrial fibrillation (principal); I42.9 Cardiomyopathy, unspecified | CPT/HCPCS: 99222 ==

== ENCOUNTER → 2024-04-26 15:22 | Outpatient (BNV) | payer OTHER, SELFPAY | PROVIDERS: Admitting Provider Hospitalist; Emergency Provider Emergency Medicine; PCP Nurse Practitioner Family; Visit Provider Hospitalist | DX: I42.9 Cardiomyopathy, unspecified (principal); I48.0 Paroxysmal atrial fibrillation; I50.23 Acute on chronic systolic (congestive) heart failure; N17.9 Acute kidney failure, unspecified | CPT/HCPCS: 99223; 99232; 99239 ==

== ENCOUNTER → 2024-05-07 23:59 | Outpatient (BNV) | payer OTHER, SELFPAY ==
--- NOTE | 2024-06-04 18:20 | MHC.OFFVIS ---
Intake Visit Reasons: Remote ICD check- Medtronic Allergies lisinopril Allergy (Intermediate, Verified 04/26/24 10:18) Rash [facility], 1928–1983 Medical History (Updated 05/02/24 @ 00:02 by Rhonda Hudson) Chronic a-fib Atherosclerotic cardiovascular disease Fatigue High triglycerides Erectile dysfunction Typical atrial flutter Nonischemic cardiomyopathy Hearing loss COPD (chronic obstructive pulmonary disease) Atrial fibrillation Elevated blood sugar Asthma Hyperlipidemia HTN (hypertension) Stroke Surgical History Presence of single chamber implantable cardioverter-defibrillator (ICD) History of appendectomy History of tonsillectomy Family History Father Unknown family medical history Mother Unknown family medical history Social History Household Members: None Housing: Apartment Are you a primary palliative care specialist to a significant other at home: No Do you presently have visiting nurse or other home services: No Alcohol intake: current Alcohol intake frequency: holidays/special occasions only Patient Tobacco Use Status: Never used Tobacco Cigarettes Per Day: 1 Years Smoked: 70 +/- e-Cigarette/Vaping Use: Never Used Second Hand Smoke Exposure: No Advance Directives Date on File: 08/18/20 service: No Current occupational status: retired Cognitive needs: No Hearing needs: No Vision needs: No Office Procedures Cardiac Device Check Cardiac Device Check Details: ICD Good battery life No new alerts. Epis[place]. [address]-JV Cardiac Device Check, single lead implantable defibrillator Procedure code (CPT) selection complete Assessment & Plan Assessment & Plan (1) Cardiomyopathy: Code(s): I42.9 - Cardiomyopathy, unspecified Category: Medical Plan: Coding Level of Care Code Procedure Only Diagnoses Cardiomyopathy I42.9 CPT Codes Cardiac Device Check - Cardiac Device 4: 38048-WL Cardiac Device Check, single lead implantable defibrillator ([id number])
== END ==
PROVIDERS: PCP Nurse Practitioner Family; Visit Provider Internal Medicine Cardiovascular Disease
DX: I42.9 Cardiomyopathy, unspecified (principal); Z95.810 Presence of automatic (implantable) cardiac defibrillator
CPT/HCPCS: 93295

== ENCOUNTER → 2024-05-07 23:59 | Outpatient (BNV) | payer OTHER, SELFPAY ==
--- NOTE | 2024-06-04 18:31 | MHC.OFFVIS ---
Intake Visit Reasons: Remote HF monitoring- Medtronic Allergies lisinopril Allergy (Intermediate, Verified 04/26/24 10:18) Rash [facility] Medical History (Updated 05/02/24 @ 00:02 by Rhonda Hudson) Chronic a-fib Atherosclerotic cardiovascular disease Fatigue High triglycerides Erectile dysfunction Typical atrial flutter Nonischemic cardiomyopathy Hearing loss COPD (chronic obstructive pulmonary disease) Atrial fibrillation Elevated blood sugar Asthma Hyperlipidemia HTN (hypertension) Stroke Surgical History Presence of single chamber implantable cardioverter-defibrillator (ICD) History of appendectomy History of tonsillectomy Family History Father Unknown family medical history Mother Unknown family medical history Social History Household Members: None Housing: Apartment Are you a primary dog day care attendant to a significant other at home: No Do you presently have visiting nurse or other home services: No Alcohol intake: current Alcohol intake frequency: holidays/special occasions only Patient Tobacco Use Status: Never used Tobacco Cigarettes Per Day: 1 Years Smoked: 70 +/- e-Cigarette/Vaping Use: Never Used Second Hand Smoke Exposure: No Advance Directives Date on File: 08/18/20 service: No Current occupational status: retired Cognitive needs: No Hearing needs: No Vision needs: No Office Procedures Cardiac Device Check Cardiac Device Check Details: HF monitoring Optivol showing ongoing volume overload. [id number] Device Interrogation, cardiac physiologic monitor system Procedure code (CPT) selection complete Assessment & Plan Assessment & Plan (1) Cardiomyopathy: Code(s): I42.9 - Cardiomyopathy, unspecified Category: Medical Plan: Coding Level of Care Code Procedure Only Diagnoses Cardiomyopathy I42.9 CPT Codes Cardiac Device Check - Cardiac Device 10: [id number] Device Interrogation, cardiac physiologic monitor system ([id number])
== END ==
PROVIDERS: PCP Nurse Practitioner Family; Visit Provider Internal Medicine Cardiovascular Disease
DX: I42.9 Cardiomyopathy, unspecified (principal); Z95.810 Presence of automatic (implantable) cardiac defibrillator
CPT/HCPCS: 93297

== ENCOUNTER → 2024-06-08 23:59 | Outpatient (BNV) | payer OTHER, SELFPAY ==
--- NOTE | 2024-06-29 17:27 | A.OFFVIS_ITS ---
Intake Visit Reasons: Remote HF monitoring- [employer] Allergies lisinopril Allergy (Intermediate, Verified 06/26/24 14:17) Rash PFSH Medical History Chronic a-fib Atherosclerotic cardiovascular disease Fatigue High triglycerides Erectile dysfunction Typical atrial flutter Nonischemic cardiomyopathy Hearing loss COPD (chronic obstructive pulmonary disease) Atrial fibrillation Elevated blood sugar Asthma Hyperlipidemia HTN (hypertension) Stroke Surgical History Presence of single chamber implantable cardioverter-defibrillator (ICD) History of appendectomy History of tonsillectomy Family History Father Unknown family medical history Mother Unknown family medical history Social History Household Members: None Housing: Apartment Are you a primary inspector health care facilities to a significant other at home: No Do you presently have visiting nurse or other home services: No Alcohol intake: current Alcohol intake frequency: holidays/special occasions only Patient Tobacco Use Status: Never used Tobacco Cigarettes Per Day: 1 Years Smoked: 70 +/- e-Cigarette/Vaping Use: Never Used Second Hand Smoke Exposure: No Advance Directives Date on File: 08/18/20 service: No Current occupational status: retired Cognitive needs: No Hearing needs: No Vision needs: No Office Procedures Cardiac Device Check Cardiac Device Check Details: HF monitoring Ongoing fluid overload. [id number] Cardiac Device Interrogation, cardio physiologic monitor Procedure code (CPT) selection complete Assessment & Plan Assessment & Plan (1) Cardiomyopathy: Code(s): I42.9 - Cardiomyopathy, unspecified Category: Medical Plan: Coding Level of Care Code Procedure Only Diagnoses Cardiomyopathy I42.9 CPT Codes Cardiac Device Check - Cardiac Device 15: [id number] Cardiac Device Interrogation, cardio physiologic monitor ([id number])
== END ==
PROVIDERS: PCP Nurse Practitioner Family; Visit Provider Internal Medicine Cardiovascular Disease
DX: I42.9 Cardiomyopathy, unspecified (principal); Z95.810 Presence of automatic (implantable) cardiac defibrillator
CPT/HCPCS: 93297

== ENCOUNTER 2024-06-20 14:08 | Inpatient (IN) | payer MEDICARE, OTHER, SELFPAY ==
[2024-06-20] VITALS (9 sets, daily range): BP systolic 101–140; BP diastolic 55–78; PULSE 55–60; RESP 16–20; TEMP 36.3–36.6; O2SAT 92–99; BMI 30.6
--- NOTE | ~2024-06-20 | XR_ITS ---
EXAMINATION: XR CHEST 1 VIEW HISTORY: sob COMPARISON: Comparison is made with the prior examination dated 04/26/2024. FINDINGS: A single AP portable view of the chest performed at 3:08 PM is submitted. A left subclavian unipolar pacemaker is unchanged in position. There is patchy opacity at the left lung base, consistent with atelectasis or pneumonia. There are mild increased markings at the right lung base without change. There may be a small left pleural effusion. There is no right pleural effusion, pneumothorax, or pulmonary vascular congestion. The heart is enlarged. The aorta is calcified. There is degenerative disc disease of the spine. XR/XR chest 1V IMPRESSION: Cardiomegaly. Patchy opacity at the left lung base which may represent atelectasis or pneumonia. Possible small left pleural effusion. Follow-up is recommended. Electronically signed by: James Tuttle MD 06/20/2024 03:27 PM [facility] [place]
[2024-06-20 14:38] LABS: MANUAL DIFF FLAG NO
[2024-06-20 14:40] LABS: Basophils Percent Auto 0.5 % (0-2); Eosinophils Percent Auto 0.3 % (0-4); Hematocrit 34.3 % (42.0-52.0); Hemoglobin 11.2 g/dl (14.0-18.0); Imm Gran Abs Auto 0.02 X10*3/uL (0.00-0.03); Imm Gran Pct Auto 0.3 % (0.0-0.4); Lymphocytes Absolute Auto 0.6 X10*3/uL (1.2-4.9); Mean Corpuscular HGB Conc 32.7 g/dl (31.0-36.0); Mean Corpuscular Hemoglobin 29.4 pg (27.0-33.0); Mean Platelet Volume 12.2 fL (9.4-12.4); Monocytes Absolute Auto 0.8 X10*3/uL (0.1-1.2); Monocytes Percent Auto 12.2 % (2-11); Neutrophils Absolute Auto 4.8 x10*3/uL (2.0-8.3); Neutrophils Percent Auto 77.7 % (45-73); Platelet Count 137 X10*3/uL (160-400); Red Blood Count 3.81 X10*6/uL (4.60-5.80); Red Cell Distribution Width 17.2 % (11.0-16.0); White Blood Count 6.1 X10*3/uL (4.8-10.8)
--- NOTE | 2024-06-20 14:43 | PC.NURSE ---
Pt presents to ED via EMS from home, reporting he felt his ICD go off this morning (approx 3 hours ago), cardiology called him and told him to go to ER. Pt reports he was going to bathroom felt nauseous and unwell, felt the ICD go off (has had 6 shocks in the past prior to today). Alert and oriented, breathing even and unlabored but noted to be SOB on exertion. Skin warm and dry. Sinus luciano on monitor. Pt denies any CP, pain, fevers, cough. Does report increase in lower leg edema and gen weakness.
[2024-06-20 14:44] LABS: INTERNATIONAL NORM RATIO 3.9 (0.9-1.1); Prothrombin Time 45.6 SEC (10.9-12.4)
--- OUTSIDE RECORDS SUMMARY | 2024-06-20 14:46 | XMS_ITS | Continuity of Care Document ---
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 Name Role Phone Not on Staff, PCP Primary Care Physician Unavail able [place] [facility] [place] - 06/04/[address] [id number]- Discharge Disposition: A-Error Chart/Home (ED Only) Attending Physician: Not on Staff, Attending MD Admitting Physician: Not on Staff, Admitting MD Referring Physician: Not on Staff, Referring MD Encounter Type: Disch ES Allergies, Adverse Reactions, Alerts No Known Medication Allergies Medications atorvastatin 40 mg oral tablet 1 tablet = 40 mg, By Mouth, Daily, # 30 tablet, 0 Refills, Maintenance, Tablet Start Date: 06/25/18 Status: Ordered Quantity: 30.0 Unit: tablet Repeat number: 1 Breo Ellipta 100 mcg-25 mcg/inh inhalation powder 1 puffs, Inhalation, Daily, # 30 each, 0 Refills, Maintenance, 06/25/18 11:00:01 AM EST, Powder Start Date: 06/25/18 Status: Ordered Quantity: 30.0 Unit: each Repeat number: 1 Hydrochlorothiazide By Mouth, Daily, 0 Refills, Maintenance, 06/25/18 11:00:37 AM EST Start Date: 06/25/18 Status: Ordered Repeat number: 1 metoprolol 25 mg oral tablet 25 mg, 1, tablet, By Mouth, 2 times a day, Refills 0, Maintenance, 06/25/18 11:01:31 AM EST Start Date: 06/25/18 Status: Ordered Repeat number: 1 terazosin 1 mg oral capsule 1 mg, 1, capsule, By Mouth, Daily at bedtime, # 30 capsule, Refills 0, Maintenance, 06/25/18 11:02:23 AM EST Start Date: 06/25/18 Status: Ordered Quantity: 30.0 Unit: capsule Repeat number: 1 warfarin 2 mg oral tablet 1 tablet = 2 mg, By Mouth, Daily, # 30 tablet, 0 Refills, Maintenance, 06/25/18 11:01:01 AM EST, Tablet Start Date: 06/25/18 Status: Ordered Quantity: 30.0 Unit: tablet Repeat number: 1 Patient Care team information Care Team Personnel Name: Not on Staff, PCP Position: S Physician (General Medicine) Member Role: PCP Insurance Providers Guarantor name: Health Plan Information #: 1 Payer: NA Member Number: [id number] Policy Number: [id number] Group Number: Health Plan Information #: 2 Payer: Member Number: [id number] Policy Number: Group Number:
--- OUTSIDE RECORDS SUMMARY | 2024-06-20 14:46 | XMS_ITS | Clinical Summary ---
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 Ordering Clinician Indication Dosage Frequency Signature (SIG) Comments Components hydralazine 25 mg tablet 02-25 00:00: 00 05-08 23:59 :00 No [id number] Per instruc tions THREE TIMES DAILY Per instructio ns THREE TIMES DAILY (route: oral) Med Classific ation: Cardiovas cular Therapy Agents Jardiance 10 mg tablet 02-25 00:00: 00 05-08 23:59 :00 No [id number] Per instruc tions DAILY Per instructio ns DAILY (route: oral) Med Classific ation: Endocrine Breo Ellipta 100 mcg-25 mcg/dose powder for inhalation 16 00:00: 00 05-08 23:59 :00 No [id number] Per instruc tions DAILY Per instructio ns DAILY (route: inhalation ) Med Classific ation: Respirato ry Therapy Agents metoprolol succinate ER 25 mg tablet,exte nded release 24 hr -14 00:00: 00 05-08 23:59 :00 No [id number] Per instruc tions DAILY Per instructio ns DAILY (route: oral) Med Classific ation: Cardiovas cular Therapy Agents warfarin 2 mg tablet 03-04 00:00: 00 05-08 23:59 :00 No [id number] 2 mg DAILY 2 mg DAILY (route: oral) Med Classific ation: Hematolog ical Agents amiodarone 200 mg tablet 03-04 00:00: 00 05-08 23:59 :00 No [id number] Unavailable 1 tablet DAILY 1 tablet DAILY (route: oral) Med Classific ation: Cardiovas cular Therapy Agents albuterol sulfate HFA 90 mcg/actuati on aerosol inhaler 03-04 00:00: 00 05-08 23:59 :00 No [id number] 2 puff EVERY 6 HOURS 2 puff EVERY 6 HOURS (route: inhalation ) Med Classific ation: Respirato ry Therapy Agents atorvastati n 10 mg tablet 03-04 00:00: 00 05-08 23:59 :00 No [id number] 1 tablet DAILY 1 tablet DAILY (route: oral) Med Classific ation: Cardiovas cular Therapy Agents Lasix 20 mg tablet 03-04 00:00: 00 04-10 23:59 :00 No [id number] 1 tablet 2 TIMES DAILY 1 tablet 2 TIMES DAILY (route: oral) Med Classific ation: Cardiovas cular Therapy Agents sildenafil 100 mg tablet 03-04 00:00: 00 05-08 23:59 :00 No [id number] 100 mg DAILY 100 mg DAILY (route: oral) Med Classific ation: Drugs to treat Erectile Dysfuncti on warfarin 1 mg tablet 03-04 00:00: 00 05-08 23:59 :00 No [id number] 1 mg DAILY 1 mg DAILY (route: oral) Med Classific ation: Hematolog ical Agents torsemide 20 mg tablet 2023-06 00:00: 00 05-08 23:59 :00 No [id number] 2 tablet DAILY 2 tablet DAILY (route: oral) Med Classific ation: Cardiovas cular Therapy Agents amiodarone 200 mg tablet 2023-06 00:00: 00 06-16 23:59 :00 No [id number] 1 tablet DAILY 1 tablet DAILY (route: oral) Med Classific ation: Cardiovas cular Therapy Agents atorvastati n 40 mg tablet 2023-06 00:00: 00 06-16 23:59 :00 No [id number] 1 tablet BEDTIME 1 tablet BEDTIME (route: oral) Med Classific ation: Cardiovas cular Therapy Agents Breo Ellipta 100 mcg-25 mcg/dose powder for inhalation 2023-06 00:00: 00 06-16 23:59 :00 No [id number] 1 inhalat ion DAILY 1 inhalation DAILY (route: inhalation ) Med Classific ation: Respirato ry Therapy Agents diphenhydra mine 25 mg tablet 2023-06 00:00: 00 06-16 23:59 :00 No [id number] 1 tablet 2 TIMES DAILY 1 tablet 2 TIMES DAILY (route: oral) Med Classific ation: Respirato ry Therapy Agents furosemide 40 mg tablet 2023-06 00:00: 00 06-16 23:59 :00 No [id number] 1 tablet DAILY 1 tablet DAILY (route: oral) Med Classific ation: Cardiovas cular Therapy Agents hydralazine 10 mg tablet 2023-06 00:00: 00 06-16 23:59 :00 No [id number] 1 tablet 2 TIMES DAILY 1 tablet 2 TIMES DAILY (route: oral) Med Classific ation: Cardiovas cular Therapy Agents Jardiance 10 mg tablet 2023-06 00:00: 00 06-16 23:59 :00 No [id number] 1 tablet DAILY 1 tablet DAILY (route: oral) Med Classific ation: Endocrine trazodone 100 mg tablet 2023-06 00:00: 00 05-24 23:59 :00 No [id number] 1 tablet BEDTIME 1 tablet BEDTIME (route: oral) Med Classific ation: Central Nervous System Agents Ventolin HFA 90 mcg/actuati on aerosol inhaler 2023-06 00:00: 00 06-16 23:59 :00 No [id number] 2 puff EVERY 6 HOURS 2 puff EVERY 6 HOURS (route: inhalation ) Med Classific ation: Respirato ry Therapy Agents warfarin 2 mg tablet 2023-06 00:00: 00 05-13 23:59 :00 No [id number] 1 tablet DAILY 1 tablet DAILY (route: oral) Med Classific ation: Hematolog ical Agents warfarin 2 mg tablet 2023-06 00:00: 00 05-19 23:59 :00 No [id number] Per instruc tions DIRECTED Per instructio ns DIRECTED (route: oral) Med Classific ation: Hematolog ical Agents warfarin 2 mg tablet 2023-06 00:00: 00 05-26 23:59 :00 No [id number] Per instruc tions DIRECTED Per instructio ns DIRECTED (route: oral) Med Classific ation: Hematolog ical Agents warfarin 1 mg tablet 2023-06 00:00: 00 06-03 23:59 :00 No [id number] 1 tablet DAILY 1 tablet DAILY (route: oral) Med Classific ation: Hematolog ical Agents warfarin 1 mg tablet 2023-06 00:00: 00 06-10 23:59 :00 No [id number] 1 mg DAILY 1 mg DAILY (route: oral) Med Classific ation: Hematolog ical Agents warfarin 1 mg tablet 2023-06 00:00: 00 06-16 23:59 :00 No [id number] 1 mg DAILY 1 mg DAILY (route: oral) Med Classific ation: Hematolog ical Agents Immunizations Ordered Immunization Name Filled Immunization Name Date Status Comments Refusal Reason INFLUENZA, TIV (INACTIVATED) 2024-03-05 00:00:00 Vital Signs Vital Name Observation Time Observation Value Commen ts Temperature 2024-06-16 18:16:00.000 98 [degF] BMI (%) 2024-06-17 12:38:03.000 27 kg/m2 Height 2024-06-17 12:37:58.000 66 [in_us] Pulse 2024-06-16 18:16:00.000 78 /min Respirations 2024-06-16 18:16:00.000 18 /min Weight (lbs) 2024-06-17 12:38:03.000 173 [lb_av] Systolic Blood Pressure 2024-06-16 18:16:00.000 126 mm [Hg] Diastolic Blood Pressure 2024-06-16 18:16:00.000 64 mm [Hg] Plan of Treatment Planned Activity Planned Date Details Comments Future Scheduled Test SKILLED NU RSE TO EVALUATE PATIENT, IDENTIFY PRIMARY AND CO-MORBID CONDITIONS CODED PER CODING GUIDELINES, AND DEVELOP PATIENT SPECIFIC PLAN OF CARE THAT INCLUDES PATIENT GOAL FOR HOME HEALTH. [code = SKILLED NURSE TO EVALUATE PATIENT, IDENTIFY PRIMARY AND CO-MORBID CONDITIONS CODED PER CODING GUIDELINES, AND DEVELOP PATIENT SPECIFIC PLAN OF CARE THAT INCLUDES PATIENT GOAL FOR HOME HEALTH.] Future Scheduled Test SKILLED NU RSE TO PREFILL MEDIPLANNER AND INSTRUCT PATIENT/CAREGIVER ON FILLING MEDIPLANNER DEVICE WEEKLY [code = SKILLED NURSE TO PREFILL MEDIPLANNER AND INSTRUCT PATIENT/CAREGIVER ON FILLING MEDIPLANNER DEVICE WEEKLY ] Future Scheduled Test SKILLED NU RSE TO REVIEW PATIENT MEDICATIONS. INSTRUCT PATIENT/CAREGIVER ON MONITORING OF EFFECTIVENESS, ADVERSE DRUG REACTIONS, SIDE EFFECTS OF ALL MEDICATIONS (PRESCRIPTION/-OTC), AND HOW AND WHEN TO REPORT PROBLEMS. [code = SKILLED NURSE TO REVIEW PATIENT MEDICATIONS. INSTRUCT PATIENT/CAREGIVER ON MONITORING OF EFFECTIVENESS, ADVERSE DRUG REACTIONS, SIDE EFFECTS OF ALL MEDICATIONS (PRESCRIPTION/-OTC), AND HOW AND WHEN TO REPORT PROBLEMS.] Future Scheduled Test SKILLED NU RSE FOR O/A, TEACHING, AND MANAGEMENT OF CAD, HLD, CARDIOMYOPATHY. [code = SKILLED NURSE FOR O/A, TEACHING, AND MANAGEMENT OF CAD, HLD, CARDIOMYOPATHY.] Future Scheduled Test SKILLED NU RSE FOR O/A, TEACHING AND MANAGEMENT OF CKD FOR EARLY IDENTIFICATION OF EXACERBATION OF DISEASE PROCESS [code = SKILLED NURSE FOR O/A, TEACHING AND MANAGEMENT OF CKD FOR EARLY IDENTIFICATION OF EXACERBATION OF DISEASE PROCESS] Future Scheduled Test SKILLED NU RSE FOR O/A OF RESPIRATORY SYSTEM TO IDENTIFY CHANGES ASSOCIATED WITH EXACERBATION AND TO PROVIDE SKILLED TEACHING ON MANAGEMENT OF ASTHMA PROCESS. [code = SKILLED NURSE FOR O/A OF RESPIRATORY SYSTEM TO IDENTIFY CHANGES ASSOCIATED WITH EXACERBATION AND TO PROVIDE SKILLED TEACHING ON MANAGEMENT OF ASTHMA PROCESS.] Future Scheduled Test SKILLED NU RSE FOR O/A AND SKILLED TEACHING RELATED TO SIGNS AND SYMPTOMS OF INFECTION AND INFECTION CONTROL MEASURES. [code = SKILLED NURSE FOR O/A AND SKILLED TEACHING RELATED TO SIGNS AND SYMPTOMS OF INFECTION AND INFECTION CONTROL MEASURES.] Future Scheduled Test SKILLED NU RSE FOR O/A OF SELF-CARE DEFICITS AND TO PROVIDE TEACHING RELATED TO SAFE PROVISION OF ADLS. [code = SKILLED NURSE FOR O/A OF SELF-CARE DEFICITS AND TO PROVIDE TEACHING RELATED TO SAFE PROVISION OF ADLS.] Future Scheduled Test SKILLED NU RSE TO INSTRUCT PATIENT/CAREGIVER ON SIGNS AND SYMPTOMS, RISK FACTORS, COMPLICATIONS, AND MANAGEMENT OF ATRIAL FIBRILLATION. [code = SKILLED NURSE TO INSTRUCT PATIENT/CAREGIVER ON SIGNS AND SYMPTOMS, RISK FACTORS, COMPLICATIONS, AND MANAGEMENT OF ATRIAL FIBRILLATION.] Future Scheduled Test SKILLED NU RSE TO PROVIDE TEACHING ON SIGNS AND SYMPTOMS AND MANAGEMENT OF HYPERTENSION. [code = SKILLED NURSE TO PROVIDE TEACHING ON SIGNS AND SYMPTOMS AND MANAGEMENT OF HYPERTENSION.] Future Scheduled Test SKILLED NU RSE TO INSTRUCT PATIENT/CAREGIVER ON COPD TO INCLUDE TEACHING AND SELF-MANAGEMENT RELATED TO COPD DISEASE PROCESS, SIGNS AND SYMPTOMS, AND COMPLICATIONS. [code = SKILLED NURSE TO INSTRUCT PATIENT/CAREGIVER ON COPD TO INCLUDE TEACHING AND SELF-MANAGEMENT RELATED TO COPD DISEASE PROCESS, SIGNS AND SYMPTOMS, AND COMPLICATIONS.] Future Scheduled Test SKILLED NU RSE FOR O/A, TEACHING AND SELF-MANAGEMENT RELATED TO HEART FAILURE. INSTRUCT PATIENT/CAREGIVER ON SIGNS AND SYMPTOMS OF EXACERBATION TO REPORT AND IMPORTANCE OF OBTAINING AND RECORDING DAILY WEIGHT AND/OR MEASUREMENTS. SN OR TRAINED PATIENT/CAREGIVER TO OBTAIN WEIGHT DAILY AND WEIGHT GAIN OF 2 LBS OVERNIGHT OR 5 LBS IN 1 WEEK TO BE REPORTED TO PHYSICIAN/PROVIDER. [code = SKILLED NURSE FOR O/A, TEACHING AND SELF-MANAGEMENT RELATED TO HEART FAILURE. INSTRUCT PATIENT/CAREGIVER ON SIGNS AND SYMPTOMS OF EXACERBATION TO REPORT AND IMPORTANCE OF OBTAINING AND RECORDING DAILY WEIGHT AND/OR MEASUREMENTS. 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 [code = SKILLED NURSE TO INSTRUCT PATIENT/CAREGIVER ON WARNING SIGNS OF CVA, RISK FACTORS, AND METHODS TO MANAGE MAINTENANCE MACHINE REPAIRER EFFECTS OF CVA.] Future Scheduled Test SKILLED NU RSE FOR O/A AND TEACHING OF DIABETIC MANAGEMENT INCLUDING BLOOD SUGAR MONITORING/USE OF GLUCOMETER, DIABETIC DIET, LOWER EXTREMITY SKIN INSPECTION, PROPER SKIN/FOOT CARE, AND SIGNS AND SYMPTOMS HYPO/HYPERGLYCEMIA TO REPORT. [code = SKILLED NURSE FOR O/A AND TEACHING OF DIABETIC MANAGEMENT INCLUDING BLOOD SUGAR MONITORING/USE OF GLUCOMETER, DIABETIC DIET, LOWER EXTREMITY SKIN INSPECTION, PROPER SKIN/FOOT CARE, AND SIGNS AND SYMPTOMS HYPO/HYPERGLYCEMIA TO REPORT.] Future Scheduled Test PATIENT YIN S A RISK OF HOSPITALIZATION AND ED USE. SKILLED NURSE TO ESTABLISH SUPPORT MEASURES TO MINIMIZE RISK OF HOSPITALIZATION AND ED USE, AND INSTRUCT PATIENT/CAREGIVER ON METHODS TO REDUCE AVOIDABLE HOSPITALIZATION AND ED USE. [code = PATIENT HAS A RISK OF HOSPITALIZATION AND ED USE. SKILLED NURSE TO ESTABLISH SUPPORT MEASURES TO MINIMIZE RISK OF HOSPITALIZATION AND ED USE, AND INSTRUCT PATIENT/CAREGIVER ON METHODS TO REDUCE AVOIDABLE HOSPITALIZATION AND ED USE.] Future Scheduled Test SKILLED NU RSE TO PROVIDE INSTRUCTION TO PATIENT/CAREGIVER RELATED TO DISCHARGE PLANNING. [code = SKILLED NURSE TO PROVIDE INSTRUCTION TO PATIENT/CAREGIVER RELATED TO DISCHARGE PLANNING.] Future Scheduled Test SKILLED NU RSE TO PERFORM ENVIRONMENTAL SAFETY RISK ASSESSMENT AND FALL RISK ASSESSMENT AND PROVIDE INSTRUCTION TO IMPLEMENT ENVIRONMENTAL SAFETY AND FALL PREVENTION STRATEGIES THROUGHOUT THE CERTIFICATION PERIOD. SKILLED NURSE WILL MAINTAIN SITUATIONAL AWARENESS AND WILL NOTIFY CLINICAL ORNITHOLOGY TEACHER AND PHYSICIAN/PROVIDER WITH ANY CHANGE IN CONDITION. [code = SKILLED NURSE TO PERFORM ENVIRONMENTAL SAFETY RISK ASSESSMENT AND FALL RISK ASSESSMENT AND PROVIDE INSTRUCTION TO IMPLEMENT ENVIRONMENTAL SAFETY AND FALL PREVENTION STRATEGIES THROUGHOUT THE CERTIFICATION PERIOD. SKILLED NURSE WILL MAINTAIN SITUATIONAL AWARENESS AND WILL NOTIFY CLINICAL ORNITHOLOGY TEACHER AND PHYSICIAN/PROVIDER WITH ANY CHANGE IN CONDITION.] Future Scheduled Test SKILLED NU RSE FOR OBSERVATION AND ASSESSMENT OF PATIENTS PAIN LEVEL AND EFFECTIVENESS OF PAIN MANAGEMENT REGIMEN. SKILLED NURSE TO INSTRUCT PATIENT/CAREGIVER REGARDING PHARMACOLOGIC AND NON-PHARMACOLOGIC PAIN CONTROL MEASURES. SKILLED NURSE TO REPORT TO PHYSICIAN IF PAIN IS UNCONTROLLED WITH CURRENT PAIN MANAGEMENT REGIMEN. [code = SKILLED NURSE FOR OBSERVATION AND ASSESSMENT OF PATIENTS PAIN LEVEL AND EFFECTIVENESS OF PAIN MANAGEMENT REGIMEN. SKILLED NURSE TO INSTRUCT PATIENT/CAREGIVER REGARDING PHARMACOLOGIC AND NON-PHARMACOLOGIC PAIN CONTROL MEASURES. SKILLED NURSE TO REPORT TO PHYSICIAN IF PAIN IS UNCONTROLLED WITH CURRENT PAIN MANAGEMENT REGIMEN.] Future Scheduled Test SKILLED NU RSE TO ASSESS PATIENT'S SKIN INTEGRITY AND INSTRUCT PATIENT/CAREGIVER ON MEASURES TO PREVENT PRESSURE ULCERS. [code = SKILLED NURSE TO ASSESS PATIENT'S SKIN INTEGRITY AND INSTRUCT PATIENT/CAREGIVER ON MEASURES TO PREVENT PRESSURE ULCERS.] Future Scheduled Test SKILLED NU RSE TO INSTRUCT PATIENT/CAREGIVER ON S/S OF NEUROPATHY AND METHODS TO MANAGE. [code = SKILLED NURSE TO INSTRUCT PATIENT/CAREGIVER ON S/S OF NEUROPATHY AND METHODS TO MANAGE.] Goal Patient Goal - FEEL,WELL Goal Provider Goal - A PLAN OF CARE WILL BE ESTABLISHED THAT MEETS PATIENT'S [facility] NEEDS AND INCLUDES PATIENT GOAL FOR HOME HEALTH. Goal Provider Goal - PATIENT/CAREGIVER WILL DEMONSTRATE UNDERSTANDING OF PREFILLING MEDIPLANNER DEVICE BY THE END OF EPISODE. Goal Provider Goal - PATIENT/CAREGIVER WILL VERBALIZE UNDERSTANDING OF EDUCATION PROVIDED ON MEDICATIONS BY THE END OF THE CERTIFICATION PERIOD. Goal Provider Goal - PATIENT/CAREGIVER WILL VERBALIZE/DEMONSTRATE MANAGEMENT OF CARDIAC DISEASE PROCESS AND EXACERBATIONS WILL BE IDENTIFIED AND PROMPTLY REPORTED THROUGHOUT THE CERTIFICATION PERIOD. Goal Provider Goal - PATIENT/CAREGIVER WILL VERBALIZE UNDERSTANDING OF GENITOURINARY DISEASE PROCESS, AND EXACERBATIONS OF GENITOURINARY DISEASE WILL BE PROMPTLY IDENTIFIED FOR EARLY INTERVENTION THROUGHOUT THE CERTIFICATION PERIOD. Goal Provider Goal - PATIENT/CAREGIVER WILL VERBALIZE/DEMONSTRATE MANAGEMENT OF RESPIRATORY DISEASE PROCESS. CHANGES IN RESPIRATORY STATUS WILL BE IDENTIFIED AND REPORTED TO PHYSICIAN FOR PROMPT INTERVENTION THROUGHOUT THE CERTIFICATION PERIOD. Goal Provider Goal - PATIENT/CAREGIVER WILL VERBALIZE/DEMONSTRATE UNDERSTANDING OF S/S OF INFECTION AND INFECTION CONTROL MEASURES. SIGNS AND SYMPTOMS OF INFECTION WILL BE IDENTIFIED AND PHYSICIAN NOTIFIED FOR PROMPT INTERVENTION THROUGHOUT THE CERTIFICATION PERIOD. Goal Provider Goal - PATIENT/CAREGIVER WILL VERBALIZE/DEMONSTRATE UNDERSTANDING OF SAFE PROVISION OF ADLS BY THE END OF THE CERTIFICATION PERIOD. Goal Provider Goal - PATIENT/CAREGIVER WILL VERBALIZE UNDERSTANDING OF SIGNS AND SYMPTOMS, COMPLICATIONS, AND MANAGEMENT OF ATRIAL FIBRILLATION THROUGHOUT THE CERTIFICATION PERIOD. Goal Provider Goal - PATIENT/CAREGIVER WILL VERBALIZE SIGNS AND SYMPTOMS OF HYPERTENSION AND WILL BE ABLE TO DEMONSTRATE ABILITY TO MANAGE EXACERBATION BY END OF THE EPISODE. Goal Provider Goal - PATIENT/CAREGIVER WILL VERBALIZE/DEMONSTRATE KNOWLEDGE AND MANAGEMENT OF COPD BY END OF EPISODE. Goal Provider Goal - PATIENT/CAREGIVER WILL VERBALIZE/DEMONSTRATE KNOWLEDGE AND MANAGEMENT OF HEART FAILURE DISEASE PROCESS BY END OF EPISODE. Goal Provider Goal - PATIENT/CAREGIVER WILL DEMONSTRATE COMPLIANCE WITH TREATMENT REGIME AND VERBALIZE SIGNS AND SYMPTOMS TO REPORT WELL POSSIBLE COMPLICATIONS OF CVA BY END OF EPISODE. Goal Provider Goal - PATIENT/CAREGIVER WILL VERBALIZE/DEMONSTRATE KNOWLEDGE OF DIABETIC MANAGEMENT. CHANGES IN DIABETIC STATUS WILL BE IDENTIFIED AND REPORTED TO PHYSICIAN FOR PROMPT INTERVENTION THROUGHOUT THE CERTIFICATION PERIOD. Goal Provider Goal - PATIENT WILL HAVE SUPPORT MEASURES ESTABLISHED TO PREVENT HOSPITALIZATION AND ED USE AND PATIENT/CAREGIVER WILL VERBALIZE/DEMONSTRATE METHODS TO REDUCE AVOIDABLE HOSPITALIZATION AND ED USE BY END OF EPISODE. Goal Provider Goal - PATIENT/CAREGIVER WILL VERBALIZE UNDERSTANDING OF DISCHARGE PLANNING INSTRUCTIONS BY DATE OF DISCHARGE. Goal Provider Goal - PATIENT/CAREGIVER WILL VERBALIZE/DEMONSTRATE EFFECTIVE ENVIRONMENTAL SAFETY AND FALL PREVENTION STRATEGIES, WILL REMAIN SAFE IN THE COMMUNITY, AND WILL BE FREE OF DANGER TO SELF AND OTHERS THROUGHOUT THE CERTIFICATION PERIOD. Goal Provider Goal - PATIENT/CAREGIVER WILL DEMONSTRATE UNDERSTANDING OF PHARMACOLOGIC AND NONPHARMACOLOGIC PAIN CONTROL MEASURES AND PATIENT WILL HAVE IMPROVEMENT IN PAIN INTERFERING WITH ACTIVITY EVIDENCED BY PAIN CONTROLLED AT LEVEL OF 7 OR LESS BY END OF CERTIFICATION PERIOD. Goal Provider Goal - PATIENT/CAREGIVER WILL VERBALIZE UNDERSTANDING OF PRESSURE ULCER PREVENTION BY END OF THE EPISODE. Goal Provider Goal - PATIENT/CAREGIVER WILL VERBALIZE S/S OF NEUROPATHY AND METHODS TO MANAGE BY END OF CERTIFICATION PERIOD. Progress Notes Progress Notes <paragraph>[Visit Date: 2024 by MARTY VASQUEZ RN]:</paragraph><paragraph>CLINICAL SUMMARY SOC (INSURANCE CHANGE) THE PATIENT IS RECEIVING HOMECARE DUE TO: CHF RECENT HOSPITALIZATION/INPATIENT ADMISSION RELATED TO: CHF EXAC PATIENT LIVING SITUATION/CAREGIVER STATUS: SENIOR APARTMENT RECENT FALLS: N PMH: CHF, CARDIOMYOPATHY AND AFIB. HE ALSO HAS MEDICAL HISTORY OF DIABETES, CVA, CKD FOC: CHF SUMMARIZE SKILLED NEED: DISEASE MANAGEMENT AND EDUCATION, PROPER USE OF DMES, MED/PAIN EDUC/TEACHING ADDITIONAL DISCIPLINES NEEDED: SN COMMUNICATION: MD UPDATED ON PLAN OF CARE UPCOMING APPOINTMENTS: PCP ANTICIPATED DISCHARGE PLAN: DC UNDER THE CARE OF MD WHEN ALL GOALS ARE MET PAYOR SOURCE: MEDICARE PT ON SERVICE FOR RECERNT CHF EXACERBATION. INSURANCE CHANGE REQUIRED NEW SOC PT AWAKE AND ALERT VSS AFEBRILE LUNGS DIM THROUGHOUT SPEAKING IN FULL SENTENCES NAD NOTED ABD SNT POS BS DENIES PROBLEMS WITH BOWEL OR BLADDER APPETITE GOOD GAIT SLOW STEADY. [employer] FILLED WITH PT LOOKING ON. UNFORTUNATELY WITH NEW INSURANCE CHANGE PT PAID FULL ARAIZA FOR HIS MEDICATION. PSYCHIATRIC ASSISTANT [place] FOR INSURANCE ASSISTANCE. JARDIANCE NEEDS REFILL PT WILL NOT BE ABLE TO,AFFORD. CALL,TO MD TO MAKE THEM AWARE OF ISSUE. PTS WT STABLE HE IS WEIGHING SELF DAILY. LOW SODIUM DIET CHOICES REVIEWED. LE WITHOUT EDEMA TODAY. POC TO CONT SNV WEEKLY FOR ASSESSMENT AND EDUCATION ON MEDICATION REGIME AND DISEASE MANAGEMENT. THERAPEUTIC DRUG MONITORING WHILE ON SERVICE WELL.</paragraph> Encounters Start Date/Time End Date/Time Encounter Type Admission Type Attending [facility] Care Facility Care Department Encounter ID Discharge Date Discharge Status Discharge Condition Discharge Reason Percent Goals Met 2024-06-17 00:00:00 2024-08-15 00:00:00 Outpatient MARTY NADREW [facility] [id number]
[2024-06-20 14:53] LABS: Alanine Aminotransferase 18 U/L (0-40); Albumin Level 3.2 g/dL (3.5-5.0); Alkaline Phosphatase 277 U/L (39-117); Anion Gap 11 (12-20); Aspartate Amino Transferase 36 U/L (5-37); Bilirubin Total 1.5 mg/dL (0.0-1.0); Blood Urea Nitrogen 16 mg/dL (9-16); Calcium 8.3 mg/dL (8.4-10.2); Carbon Dioxide 31 mmol/L (22-29); Chloride 104 mmol/L (96-108); Creatinine Clr Calc Pharmacy 31.4; Estimated Glomerular Filt Rate 36; Glucose Random 110 mg/dL (60-115); Magnesium 2.2 mg/dL (1.6-2.6); Potassium 2.8 mmol/L (3.3-5.1); Sodium 143 mmol/L (135-145); Total Protein 6.5 g/dL (6.5-8.0)
--- NOTE | 2024-06-20 14:54 | ED.GENADULT ---
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 States got up to go to the bathroom felt lightheaded/presyncopal and nauseous in the ICD when off. Reports symptomatic improvement at present. Does report SOB x1 week with worsening LE edema. Reports compliance with diuretic. States has been noncompliant with his Jardiance. Denies fever, chills, cough, chest pain, abdominal pain, vomiting Related Data Home Medications ?Medication ?Instructions ?Recorded ?Confirmed trazodone 100 mg tablet 100 mg PO BEDTIME PRN Sleep 02/22/24 04/26/24 warfarin 2 mg tablet 1 mg PO SUMOWETHFR@1800 02/22/24 04/26/24 diphenhydramine HCl 25 mg tablet 25 mg PO BID PRN Itching 04/26/24 04/26/24 (Benadryl Allergy) Previous Rx's ?Medication ?Instructions ?Recorded blood sugar diagnostic (echoechoTouch #100 ea 12/19/22 Ultra Test strips) blood-glucose meter (OneTouch #1 ea 12/19/22 Ultra2 Meter) lancets 30 gauge (Onetouch Delica #100 ea 12/19/22 Safety Lancet) albuterol sulfate 90 mcg/actuation 2 puff inhalation Q6H PRN 01/02/24 aerosol inhaler Shortness Of Breath 30 days #8.5 grams amiodarone 200 mg tablet 200 mg PO DAILY #90 tabs 02/21/24 empagliflozin 10 mg tablet 10 mg PO DAILY #90 tabs 02/26/24 (Jardiance) Breo Ellipta 100 mcg-25 mcg/dose 1 ea inhalation DAILY #180 ea 04/23/24 powder for inhalation (fluticasone furoate-vilanterol) furosemide 40 mg tablet 40 mg PO DAILY #30 tabs 04/30/24 atorvastatin 40 mg tablet 40 mg PO DAILY 90 days #90 tabs 05/15/24 warfarin 1 mg tablet 1 mg PO DAILY 30 days #30 tabs 05/27/24 hydralazine 10 mg tablet 10 mg PO BID #60 tabs 06/12/24 Allergies Allergy/AdvReac Type Severity Reaction Status Date / Time lisinopril Allergy Intermediate Rash Verified 06/20/24 14:21 Review of Systems Review of Systems: Yes all other systems are reviewed and are negative Constitutional: Constitutional: Reports as per [facility] Past Medical History Attestation statement: The following information was validated with the patient. Source: old records reviewed Medical History Chronic a-fib Atherosclerotic cardiovascular disease Fatigue High triglycerides Erectile dysfunction Typical atrial flutter Nonischemic cardiomyopathy Hearing loss COPD (chronic obstructive pulmonary disease) Atrial fibrillation Elevated blood sugar Asthma Hyperlipidemia HTN (hypertension) Stroke Surgical History Presence of single chamber implantable cardioverter-defibrillator (ICD) History of appendectomy History of tonsillectomy Family History Family History Father Unknown family medical history Mother Unknown family medical history Social History Social History Household Members: None Housing: Apartment Are you a primary patient care to a significant other at home: No Do you presently have visiting nurse or other home services: No Alcohol intake: current Alcohol intake frequency: holidays/special occasions only Patient Tobacco Use Status: Never used Tobacco Cigarettes Per Day: 1 Years Smoked: 70 +/- Smoked in Last 30 Days: Yes e-Cigarette/Vaping Use: Never Used Second Hand Smoke Exposure: No Use of substances other than those prescribed or required for medical reasons: No Advance Directives: Yes Advance Directives on File: Yes Advance Directives Date on File: 08/18/20 service: No Current occupational status: retired Cognitive needs: No Hearing needs: No Vision needs: No Physical Exam ED Vital Signs: Vital Signs - 24 hr 06/20/24 14:15 Temperature 97.6 F Pulse Rate 57 Respiratory Rate 18 Blood Pressure 126/55 L Pulse Oximetry 96 Oxygen Delivery Method Room Air BMI result Body Mass Index 30.6 Const General: cooperative, healthy appearing and no acute distress Orientation/consciousness: patient oriented x3 Limitations: no limitations HENMT Head: Yes normal to inspection and Yes atraumatic Ears: hearing grossly normal bilaterally General nose exam: Normal external nose present Face and sinus: Yes normal facial exam Eyes General: appearance normal, both eyes and all related structures EOM: EOMs intact bilaterally Neck Neck: Yes normal visual inspection and Yes no meningeal signs Resp Effort & Inspection: normal respiratory effort and no respiratory distress Auscultation: clear to auscultation bilaterally, no crackles and no wheezes Cardio Rate: regular rate Heart sounds: S1 normal heart sound present and S2 normal heart sound present GI Inspection: Yes normal to inspection Palpation (GI): Soft to palpation, nontender, no guarding and not rigid Skin Rashes: no rashes Wounds: no wounds Neuro General: patient oriented x3, tone normal and no meningeal signs Cranial nerves: Yes CN's II-XII intact bilaterally Gait exam (Neuro): Normal gait present Extrem Other: + bilateral LE pitting edema General: Yes edema Course Course Course Narrative: -spoke with [email or web address] rep > [facility] express sent -no leukocytosis. H&H at patient's baseline -potassium low at 2.8 > p.o. repletion given. Chronic CKD. Initial troponin 58 > will obtain 3 hour repeat >1525--[employer] device was interrogated patient was defibrillated this AM. Had an episode of VT VF, ATP was given with 1 shock with resolution of rhythm. Also report patients fluid index is also been above their thresholds since November of 2023 and continues to elevate. > spoke with cardiology, Dr. Castro recommended potassium repletion and admission. 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 On exam vital signs stable, NAD, nontoxic appearing, lungs CTA, bilateral LE pitting edema appreciated. Concern for arrhythmia vs CHF vs ACS. Low suspicion for dissection. Rule out metabolic abnormalities. Plan: Device interrogation, EKG, labs, Cardiology consult Please refer to course for remaining clinical decision making, interpretation of labs/imaging results, and discussions with consultants and/or family members. Differential Diagnosis Differential Diagnoses: The differential diagnosis associated with the presentation includes As above Admission/Observation Consideration of admission/observation: Escalation of care including admission/observation considered Consult Healthcare Provider Management of the patient was discussed with: Hospitalist and Surveillance Investigator (Cardiology and [employer] rep) Lab Data MDM Lab Attestation statement: I reviewed the patient's lab results. 06/20/24 14:34 06/20/24 14:34 Labs: Lab Results 06/20/24 Range/Units 14:34 WBC 6.1 (4.8-10.8) X10*3/uL RBC 3.81 L (4.60-5.80) X10*6/uL Hgb 11.2 L (14.0-18.0) g/dl Hct 34.3 L (42.0-52.0) % MCV 90.0 (80.0-98.0) fL MCH 29.4 (27.0-33.0) pg MCHC 32.7 (31.0-36.0) g/dl RDW 17.2 H (11.0-16.0) % Plt Count 137 L (160-400) X10*3/uL MPV 12.2 (9.4-12.4) fL Immature Gran % (Auto) 0.3 (0.0-0.4) % Neut % (Auto) 77.7 H (45-73) % Lymph % (Auto) 9.0 L (20-40) % [place] % (Auto) 12.2 H (2-11) % Eos % (Auto) 0.3 (0-4) % Baso % (Auto) 0.5 (0-2) % Lymph # (Auto) 0.6 L (1.2-4.9) X10*3/uL [place] # (Auto) 0.8 (0.1-1.2) X10*3/uL Eos # (Auto) 0.0 (0.0-0.4) X10*3/uL Baso # (Auto) 0.0 (0.0-0.2) X10*3/uL Abs Immat Gran (auto) 0.02 (0.00-0.03) X10*3/uL Absolute Neuts (auto) 4.8 (2.0-8.3) x10*3/uL Absolute Nucleated RBC 0.000 (0.0-0.012) X10*3/uL Nucleated RBC % (auto) 0.0 (0.0-0.2) /100WBC PT 45.6 H (10.9-12.4) SEC INR 3.9 H (0.9-1.1) APTT 44.0 H (26.0-36.8) SEC Sodium 143 (135-145) mmol/L Potassium 2.8 L* D (3.3-5.1) mmol/L Chloride 104 (96-108) mmol/L Carbon Dioxide 31 H (22-29) mmol/L Anion Gap 11 L (12-20) BUN 16 (9-16) mg/dL Creatinine 1.83 H (0.5-1.4) mg/dL Estim Creat Clear Calc 31.4 Estimated GFR 36 Random Glucose 110 (60-115) mg/dL Calcium 8.3 L D (8.4-10.2) mg/dL Magnesium 2.2 (1.6-2.6) mg/dL Total Bilirubin 1.5 H (0.0-1.0) mg/dL AST 36 (5-37) U/L ALT 18 (0-40) U/L Alkaline Phosphatase 277 H (39-117) U/L Troponin I High Sens 58.1 H D (<3.5-35.0) ng/L Total Protein 6.5 (6.5-8.0) g/dL Albumin 3.2 L (3.5-5.0) g/dL Independent Interpretation I performed an independent interpretation of an: EKG and Plain X-Ray Radiology Impression Discussion of test interpretation with radiology: I have reviewed the radiologist's reading. Independent Historian Clinical information obtained from an independent historian. History obtained from or confirmed by: EMS External Record Review External record reviewed: Inpatient record, Office record, Outpatient record, Prior outpatient labs, Prior outpatient radiology, Primary care record and Outside ED record Tests considered The following testing was considered but not selected: As above Chronic Conditions Patient?s care impacted by: Diabetes, Hypertension and Other Social Determinants Patient?s care significantly limited by Social Determinants of Health including: Other Social Determinant of Health Critical Care Time Critical Care Time Critical Care Time: Yes Total Critical Care Time: 45 Attestation: I have personally provided critical care time exclusive of time spent on separately billable procedures. Time includes review of lab data, radiology results, discussion with consultants, and monitoring for potential decompensation. Intervention performed as documented. Discharge Plan Discharge Clinical Impression: Implantable cardioverter-defibrillator (ICD) discharge, CHF (congestive heart failure) Patient Disposition: Admitted As Inpatient Print Language: Turkmen
[2024-06-20 14:59] LABS: Troponin-I High Sensitivity 58.1 ng/L (<3.5-35.0)
--- NOTE | 2024-06-20 15:04 | ECG_ITS ---
Test Reason : ARRYTHMIA Blood Pressure : */* mmHG Vent. Rate : 57 BPM Atrial Rate : * BPM P-R Int : * ms QRS Dur : 102 ms QT Int : 530 ms P-R-T Axes : * -52 5 degrees QTcB Int : 515 ms Probably sinus bradycardia, unclear if V pacing or not Low voltage QRS Inferior infarct (cited on or before 02-Jul-2020) Possible Anterolateral infarct (cited on or before 03-Jul-2020) Prolonged QT Abnormal ECG When compared with ECG of 26-Apr-2024 11:17, No significant changes seen Referred By: Leslee Keene Electronically Signed By: MELVIN BURGESS
[2024-06-20] MEDS: Potassium Chloride Packet 20 MEQ PACKET 60 MEQ PO (15:19)
[2024-06-20] MEDS: Potassium Chloride/H20 10 MEQ/100 ML PIGGYBACK 100 MEQ IV ×2 (16:06→17:26)
[2024-06-20 16:08] LABS: B Type Natriuretic Peptide 3512 pg/mL (<100)
--- NOTE | 2024-06-20 16:19 | PHA.MEDREC ---
Addendum entered by Lavon Lu [facility] 06/20/24 16:29: med rec reviewed Original Note: Pharmacy Consult ? Medication Reconciliation Pharmacy has completed the medication reconciliation. Spoke with patient. He confirmed the list from Siva Berumen printed on 05/20 is up to date and looking in patients claims they do match what we have in claims. Patient confirmed his Warfarin 1mg tab and confirmed he is taking one tab daily at 1700. He also confirmed that when he takes the Trazodone 100mg he states he has not been getting much sleep relief while taking it. He confirmed he took his morning medications this morning and his Warfarin he stated he last took yesterday at 1700.
--- NOTE | 2024-06-20 16:47 | PM.IMHP ---
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 States got up to go to the bathroom felt lightheaded/presyncopal and nauseous in the ICD when off. Reports symptomatic improvement at present. Does report SOB x1 week with worsening LE edema. Reports compliance with diuretic. States has been noncompliant with his Jardiance. Denies fever, chills, cough, chest pain, abdominal pain, vomiting. Found to be hypokalemic in ER with normal Mag. Admission requested for divalent repletion Review of Systems Review of Systems: Denies chest pain Denies shortness of breath Denies nausea vomiting diarrhea Denies fever chills PMFSH Medical History Chronic a-fib Atherosclerotic cardiovascular disease Fatigue High triglycerides Erectile dysfunction Typical atrial flutter Nonischemic cardiomyopathy Hearing loss COPD (chronic obstructive pulmonary disease) Atrial fibrillation Elevated blood sugar Asthma Hyperlipidemia HTN (hypertension) Stroke Family History Father Unknown family medical history Mother Unknown family medical history Surgical History Presence of single chamber implantable cardioverter-defibrillator (ICD) History of appendectomy History of tonsillectomy Social History Household Members: None Housing: Apartment Are you a primary acute care occupational therapist to a significant other at home: No Do you presently have visiting nurse or other home services: No Alcohol intake: current Alcohol intake frequency: holidays/special occasions only Patient Tobacco Use Status: Never used Tobacco Cigarettes Per Day: 1 Years Smoked: 70 +/- Smoked in Last 30 Days: Yes e-Cigarette/Vaping Use: Never Used Second Hand Smoke Exposure: No Use of substances other than those prescribed or required for medical reasons: No Advance Directives: Yes Advance Directives on File: Yes Advance Directives Date on File: 08/18/20 service: No Current occupational status: retired Cognitive needs: No Hearing needs: No Vision needs: No Meds Allergies Allergy/AdvReac Type Severity Reaction Status Date / Time lisinopril Allergy Intermediate Rash Verified 06/20/24 14:21 Active Medications: Current Medications Acetaminophen (Acetaminophen 325 Mg Tablet) 650 mg PO Q6H PRN PRN Reason: Pain, Mild 1-3,fever,headache Albuterol Sulfate (Albuterol Sulfate 90 Mcg 8 Gm Inhaler) 2 puff INHALE Q6H PRN PRN Reason: Shortness Of Breath Amiodarone HCl (Amiodarone Hcl 200 Mg Tablet) 200 mg PO DAILY [facility] Atorvastatin Calcium (Atorvastatin Calcium 40 Mg Tablet) 40 mg PO BEDTIME [place] Calcium Carbonate (Calcium Carbonate 750 Mg Tab.Chew) 750 mg PO Q4H PRN PRN Reason: Heartburn Diphenhydramine HCl (Diphenhydramine Hcl 25 Mg Capsule) 25 mg PO BID PRN PRN Reason: Itching Empagliflozin (Empagliflozin 10 Mg Tablet) 10 mg PO DAILY [facility] Fluticasone/Vilanterol (Fluticasone/Vilanterol 100/25 Blst.W.Dev) 1 puff INHALE DAILY [facility] Furosemide (Furosemide 40 Mg Tablet) 40 mg PO DAILY [facility]; Protocol Glucose (Glucose Gel 15 Gm Gel..Gram.) 15 gm PO Q15M PRN; Protocol PRN Reason: per Hypoglycemia Standing Ord. Hydralazine HCl (Hydralazine Hcl 10 Mg Tablet) 10 mg PO BID [facility]; Protocol Potassium Chloride (Potassium Chloride/H20) 10 meq in 100 mls @ 100 mls/hr IV Q1H [place] Stop: 06/20/24 17:59 Last Admin: 06/20/24 16:06 Dose: 100 mls/hr Dextrose (D10) 250 mls @ 750 mls/hr IV Q15M PRN; Protocol PRN Reason: per Hypoglycemia Standing Ord. Insulin Human Lispro (Insulin Lispro 100 Unit/Ml 3 Ml Vial) 0 unit SUBCUT QIDACHS [facility]; Protocol Magnesium Hydroxide (Milk Of Magnesia 30 Ml Oral.Susp) 30 ml PO DAILY PRN PRN Reason: Constipation Melatonin (Melatonin 3 Mg Tablet) 6 mg PO BEDTIME PRN PRN Reason: Insomnia Ondansetron HCl (Ondansetron Hcl 4 Mg/2 Ml Vial) 4 mg IVPUSH Q8H PRN PRN Reason: Nausea and Vomiting Sodium Chloride (0.9 % Sodium Chloride Flush 3 Ml Syringe) 3 ml IVFLUSH QSHIFT [facility] Trazodone HCl (Trazodone Hcl 100 Mg Tablet) 100 mg PO BEDTIME PRN PRN Reason: Sleep Warfarin Sodium (Warfarin Sodium 1 Mg Tablet) 1 mg PO DAILY@1800 [facility] Home Medications ?Medication ?Instructions ?Recorded ?Confirmed ?Last Taken ?Type trazodone 100 mg tablet 100 mg PO BEDTIME PRN Sleep 02/22/24 06/20/24 Unknown History diphenhydramine HCl 25 mg tablet 25 mg PO BID PRN Itching 04/26/24 06/20/24 Unknown History (Benadryl Allergy) atorvastatin 40 mg tablet 40 mg PO BEDTIME 06/20/24 06/20/24 06/20/24 History fluticasone furoate 100 1 inh inhalation DAILY 06/20/24 06/20/24 06/20/24 History mcg-vilanterol 25 mcg/dose inhalation powder (Breo Ellipta) warfarin 1 mg tablet 1 mg PO DAILY@1800 06/20/24 06/20/24 06/19/24 History Physical Exam Vital Signs and Narrative: Vital Signs: Last Vital Signs Temp 97.6 F 06/20/24 14:15 Pulse 57 06/20/24 16:07 Resp 17 06/20/24 16:07 BP 118/78 06/20/24 16:07 Pulse Ox 94 06/20/24 16:07 O2 Del Method Room Air 06/20/24 16:07 BMI result Body Mass Index 30.6 Const: Other: Awake alert oriented x3 in no acute distress Resp: Other: Clear to auscultation bilaterally no rales rhonchi or wheezes Cardio: Other: No S4; positive S1-S2; no S3 murmurs rubs or gallops GI: Other: Soft nontender nondistended normoactive bowel sounds Neuro: Other: Cranial nerves 2-12 grossly intact as tested. Motor 5/5 all extremities. Sensation is intact. Cognition appropriate. Gait not observed Extrem: Other: No edema bilaterally Results Labs 06/20/24 14:34 06/20/24 14:34 Labs: Laboratory Results - last 24 hr 06/20/24 14:34 MCV 90.0 MCH 29.4 MCHC 32.7 RDW 17.2 H Plt Count 137 L MPV 12.2 Immature Gran % (Auto) 0.3 Neut % (Auto) 77.7 H Lymph % (Auto) 9.0 L [place] % (Auto) 12.2 H Eos % (Auto) 0.3 Baso % (Auto) 0.5 Lymph # (Auto) 0.6 L [place] # (Auto) 0.8 Eos # (Auto) 0.0 Baso # (Auto) 0.0 Abs Immat Gran (auto) 0.02 Absolute Neuts (auto) 4.8 Absolute Nucleated RBC 0.000 Nucleated RBC % (auto) 0.0 PT 45.6 H INR 3.9 H APTT 44.0 H Anion Gap 11 L Estim Creat Clear Calc 31.4 Estimated GFR 36 Random Glucose 110 Calcium 8.3 L D Magnesium 2.2 Total Bilirubin 1.5 H AST 36 ALT 18 Alkaline Phosphatase 277 H Troponin I High Sens 58.1 H D B-Natriuretic Peptide 3512 H Total Protein 6.5 Albumin 3.2 L Imaging Radiologist's Impressions: Impressions Chest X-Ray 06/20/24 14:53 IMPRESSION: Cardiomegaly. Patchy opacity at the left lung base which may represent atelectasis or pneumonia. Possible small left pleural effusion. Follow-up is recommended. Electronically signed by: James Tuttle MD 06/20/2024 03:27 PM [facility] [place], [place] Assessment and Plan (1) Implantable cardioverter-defibrillator (ICD) discharge: Status: Acute (2) Diabetes type 2, controlled: Qualifiers: Diabetes mellitus assistant terminal manager insulin use: unspecified assistant terminal manager insulin use status Diabetes mellitus complication status: with unspecified complications Qualified Code(s): E11.8 - Type 2 diabetes mellitus with unspecified complications Status: Acute (3) Paroxysmal atrial fibrillation: Status: Acute Plan 84-year-old male with past medical history AFib, ACS, nonischemic cardiomyopathy, ICD, COPD, asthma, HLD, HTN, CVA, presenting to the ED via EMS from home s/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 Found to be hypokalemic with normal Mag in the ER. 1. AICD discharge/hypokalemia(likely culprit) -aggressive repletion of potassium both IV and oral -monitor on telemetry overnight -cardiology consult in a.m. -follow renals/divalents 2. Diabetes type 2 -acceptable control (patient states off Jardiance for unknown time) -lispro correctional scale -2000 calorie ADA diet -adjust therapies as indicated 3. Paroxysmal atrial fibrillation -normal sinus rhythm at present -continue Coumadin with goal INR 2-3 -monitor on telemetry Full code Warfarin Patient will need overnight stay on telemetry to verify repletion of potassium and for specialty consultation in a.m.. Can not be achieved a lesser acute setting Quality Stroke Does the patient have a stroke diagnosis?: No VTE Prior VTE?: No VTE Risk Level:: Medical - moderate - high VTE Device Contraindication: Treatment Not Indicated VTE Drug Contraindication: N/A - Med Ordered
[2024-06-20 17:22] LABS: Influenza A PCR NEGATIVE (Negative); Influenza B PCR NEGATIVE (Negative); Resp Syncy Virus RNA Qual PCR NEGATIVE (Negative); SARS COV2 PCR INHOUSE NEGATIVE (Negative)
[2024-06-20 17:59] LABS: Troponin-I High Sensitivity 80.9 ng/L (<3.5-35.0)
[2024-06-20] MEDS: Albuterol Sulfate 90 MCG 8 GM INHALER 2 PUFF INHALE (19:15)
[2024-06-20 21:03] LABS: Glucose, Whole Blood 122 mg/dL (60-115)
[2024-06-20] MEDS: hydrALAZINE HCl 10 MG TABLET PO (21:28)
[2024-06-20] MEDS: traZODone HCL 100 MG TABLET PO (21:29)
[2024-06-20] MEDS: Atorvastatin Calcium 40 MG TABLET PO (21:29)
[2024-06-20] MEDS: 0.9 % Sodium Chloride Flush 3 ML SYRINGE IVFLUSH (23:51)
[2024-06-21] MEDS: Melatonin 3 MG TABLET 6 MG PO (00:47)
[2024-06-21 03:51] VITALS: BP 141/66; TEMP 37.1; O2SAT 92
[2024-06-21 06:25] LABS: Prothrombin Time 35.2 SEC (10.9-12.4)
[2024-06-21 06:33] LABS: Alanine Aminotransferase 16 U/L (0-40); Alkaline Phosphatase 257 U/L (39-117); Anion Gap 11 (12-20); Aspartate Amino Transferase 30 U/L (5-37); Bilirubin Total 1.7 mg/dL (0.0-1.0); Blood Urea Nitrogen 16 mg/dL (9-16); Calcium 8.2 mg/dL (8.4-10.2); Carbon Dioxide 27 mmol/L (22-29); Chloride 108 mmol/L (96-108); Creatinine Clr Calc Pharmacy 32.3; Estimated Glomerular Filt Rate 37; Glucose Random 97 mg/dL (60-115); Potassium 3.7 mmol/L (3.3-5.1); Sodium 142 mmol/L (135-145); Total Protein 6.4 g/dL (6.5-8.0)
[2024-06-21 07:23] LABS: Basophils Percent Auto 0.5 % (0-2); Eosinophils Percent Auto 0.7 % (0-4); Hemoglobin 11.2 g/dl (14.0-18.0); Imm Gran Abs Auto 0.01 X10*3/uL (0.00-0.03); Imm Gran Pct Auto 0.2 % (0.0-0.4); Lymphocytes Absolute Auto 0.7 X10*3/uL (1.2-4.9); Lymphocytes Percent Auto 11.9 % (20-40); Mean Corpuscular HGB Conc 32.9 g/dl (31.0-36.0); Mean Corpuscular Hemoglobin 29.6 pg (27.0-33.0); Mean Corpuscular Volume 89.7 fL (80.0-98.0); Mean Platelet Volume 12.1 fL (9.4-12.4); Monocytes Absolute Auto 0.8 X10*3/uL (0.1-1.2); Monocytes Percent Auto 13.1 % (2-11); Neutrophils Absolute Auto 4.2 x10*3/uL (2.0-8.3); Neutrophils Percent Auto 73.6 % (45-73); Platelet Count 132 X10*3/uL (160-400); Red Blood Count 3.79 X10*6/uL (4.60-5.80); Red Cell Distribution Width 17.3 % (11.0-16.0); White Blood Count 5.7 X10*3/uL (4.8-10.8)
[2024-06-21 07:53] VITALS: BP 142/65; PULSE 58; RESP 18; TEMP 36.9; O2SAT 95
[2024-06-21] MEDS: hydrALAZINE HCl 10 MG TABLET PO (07:59)
[2024-06-21] MEDS: Empagliflozin 10 MG TABLET PO (07:59)
[2024-06-21] MEDS: Furosemide 40 MG TABLET PO (08:00)
[2024-06-21] MEDS: Amiodarone HCL 200 MG TABLET PO (08:00)
[2024-06-21] MEDS: 0.9 % Sodium Chloride Flush 3 ML SYRINGE IVFLUSH (08:01)
[2024-06-21 08:06] LABS: Glucose, Whole Blood 100 mg/dL (60-115)
[2024-06-21 09:13] LABS: MANUAL DIFF FLAG NO
[2024-06-21] MEDS: Fluticasone/Vilanterol 100/25 BLST.W.DEV 1 PUFF INHALE (09:44)
[2024-06-21] MEDS: Albuterol Sulfate 90 MCG 8 GM INHALER 2 PUFF INHALE (09:46)
[2024-06-21 09:47] VITALS: PULSE 62; RESP 18; O2SAT 97
--- NOTE | 2024-06-21 10:40 | P.CONCA_ITS ---
History of Present Illness History of Present Illness Date of Service: 06/21/24 Chief complaint: AICD discharge Narrative: This is a cardiology consultation regarding ICD shock. Patient's remote monitoring had shown ICD shock and hence he was asked to go to the emergency room. He states that he has chronic shortness of breath and that is just about the same as before. However, he states it is somewhat variable and some days he feels that way but not always. He denies any exertional shortness of breath that is new since his baseline. Per last notes, he has a history of nonischemic cardiomyopathy and chronic congestive heart failure. He is on diuretics and listed to be on 40 mg Lasix daily. Also on amiodarone for atrial fibrillation. Upon arrival, he was found to be hypokalemic and that might be the etiology for ventricular fibrillation/ICD shock. Potassium is being repleted. He states he otherwise feels fine. Currently on a recliner and he denies any active complaints. Review of Systems 2 Review of Systems: Yes all other systems are reviewed and are negative Constitutional: Constitutional: Reports as per HPI and Reports no additional constitutional complaints Eyes: Eyes: Reports as per HPI and Denies no additional eye complaints ENT: Denies system reviewed and no additional complaints, except as documented and Reports as per HPI Cardiovascular: Cardiovascular: Reports as per HPI, Reports no additional cardiovascular complaints, Denies acrocyanosis, Denies cool extremities, Denies chest pain, Denies leg edema, Denies lightheadedness, Denies palpitations and Reports dyspnea Respiratory: Respiratory: Reports as per HPI, Denies no additional respiratory complaints and Reports dyspnea Gastrointestinal: Gastrointestinal: Reports as per HPI and Denies no additional gastrointestinal complaints Genitourinary: Genitourinary: Reports no additional male genitourinary complaints and Reports as per HPI Musculoskeletal: Musculoskeletal: Reports no additional musculoskeletal complaints and Reports as per HPI Integumentary/Breasts: Skin/Breast: Reports system reviewed and no additional complaints, except as docu Neurologic: Reports system reviewed and no additional complaints, except as documented and Reports as per HPI Psychiatric: Psychiatric: Reports no additional psychiatric complaints and Reports as per HPI Endocrine: Endocrine: Reports no additional endocrine complaints, Reports as per HPI and Denies palpitations Hematologic/Lymphatic: Hematologic/Lymphatic: Reports no additional hematologic/lymphatic complaints and Reports as per HPI Allergic/Immunologic: Allergic/Immunologic: Reports no additional allergic/immunologic complaints and Reports as per HPI [facility] Past Medical History Medical History Chronic a-fib Atherosclerotic cardiovascular disease Fatigue High triglycerides Erectile dysfunction Typical atrial flutter Nonischemic cardiomyopathy Hearing loss COPD (chronic obstructive pulmonary disease) Atrial fibrillation Elevated blood sugar Asthma Hyperlipidemia HTN (hypertension) Stroke Family History Family History Father Unknown family medical history Mother Unknown family medical history Surgical History Surgical History Presence of single chamber implantable cardioverter-defibrillator (ICD) History of appendectomy History of tonsillectomy Social History Social History Household Members: None Housing: Apartment Are you a primary daycare worker to a significant other at home: No Do you presently have visiting nurse or other home services: No Alcohol intake: current Alcohol intake frequency: holidays/special occasions only Patient Tobacco Use Status: Never used Tobacco Cigarettes Per Day: 1 Years Smoked: 70 +/- Smoked in Last 30 Days: No e-Cigarette/Vaping Use: Never Used Patient Interested in Nicotine Replacement: No Patient Given Instructions on How to Stop Smoking: No Second Hand Smoke Exposure: No Use of substances other than those prescribed or required for medical reasons: No Advance Directives: Yes Advance Directives on File: Yes Advance Directives Date on File: 08/18/20 service: No Current occupational status: retired Cognitive needs: No Hearing needs: No Vision needs: No Meds Allergies Allergy/AdvReac Type Severity Reaction Status Date / Time lisinopril Allergy Intermediate Rash Verified 06/20/24 14:21 Active Medications: Current Medications Acetaminophen (Acetaminophen 325 Mg Tablet) 650 mg PO Q6H PRN PRN Reason: Pain, Mild 1-3,fever,headache Albuterol Sulfate (Albuterol Sulfate 90 Mcg 8 Gm Inhaler) 2 puff INHALE Q6H PRN PRN Reason: Shortness Of Breath Last Admin: 06/21/24 09:46 Dose: 2 puff Amiodarone HCl (Amiodarone Hcl 200 Mg Tablet) 200 mg PO DAILY [facility] Last Admin: 06/21/24 08:00 Dose: 200 mg Atorvastatin Calcium (Atorvastatin Calcium 40 Mg Tablet) 40 mg PO BEDTIME [facility] Last Admin: 06/20/24 21:29 Dose: 40 mg Calcium Carbonate (Calcium Carbonate 750 Mg Tab.Chew) 750 mg PO Q4H PRN PRN Reason: Heartburn Diphenhydramine HCl (Diphenhydramine Hcl 25 Mg Capsule) 25 mg PO BID PRN PRN Reason: Itching Empagliflozin (Empagliflozin 10 Mg Tablet) 10 mg PO DAILY [facility] Last Admin: 06/21/24 07:59 Dose: 10 mg Fluticasone/Vilanterol (Fluticasone/Vilanterol 100/25 Blst.W.Dev) 1 puff INHALE RDAILY [facility] Last Admin: 06/21/24 09:44 Dose: 1 puff Furosemide (Furosemide 40 Mg Tablet) 40 mg PO DAILY [facility]; Protocol Last Admin: 06/21/24 08:00 Dose: 40 mg Glucose (Glucose Gel 15 Gm Gel..Gram.) 15 gm PO Q15M PRN; Protocol PRN Reason: per Hypoglycemia Standing Ord. Hydralazine HCl (Hydralazine Hcl 10 Mg Tablet) 10 mg PO BID [facility]; Protocol Last Admin: 06/21/24 07:59 Dose: 10 mg Dextrose (D10) 250 mls @ 750 mls/hr IV Q15M PRN; Protocol PRN Reason: per Hypoglycemia Standing Ord. Insulin Human Lispro (Insulin Lispro 100 Unit/Ml 3 Ml Vial) 0 unit SUBCUT QIDACHS [facility]; Protocol Last Admin: 06/21/24 09:34 Dose: Not Given Magnesium Hydroxide (Milk Of Magnesia 30 Ml Oral.Susp) 30 ml PO DAILY PRN PRN Reason: Constipation Melatonin (Melatonin 3 Mg Tablet) 6 mg PO BEDTIME PRN PRN Reason: Insomnia Last Admin: 06/21/24 00:47 Dose: 6 mg Ondansetron HCl (Ondansetron Hcl 4 Mg/2 Ml Vial) 4 mg IVPUSH Q8H PRN PRN Reason: Nausea and Vomiting Sodium Chloride (0.9 % Sodium Chloride Flush 3 Ml Syringe) 3 ml IVFLUSH QSHIFT [facility] Last Admin: 06/21/24 08:01 Dose: 3 ml Trazodone HCl (Trazodone Hcl 100 Mg Tablet) 100 mg PO BEDTIME PRN PRN Reason: Sleep Last Admin: 06/20/24 21:29 Dose: 100 mg Warfarin Sodium (Warfarin Sodium 1 Mg Tablet) 1 mg PO DAILY@1800 [facility] Home Medications ?Medication ?Instructions ?Recorded ?Confirmed ?Last Taken ?Type trazodone 100 mg tablet 100 mg PO BEDTIME PRN Sleep 02/22/24 06/20/24 Unknown History diphenhydramine HCl 25 mg tablet 25 mg PO BID PRN Itching 04/26/24 06/20/24 Unknown History (Benadryl Allergy) atorvastatin 40 mg tablet 40 mg PO BEDTIME 06/20/24 06/20/24 06/20/24 History fluticasone furoate 100 1 inh inhalation DAILY 06/20/24 06/20/24 06/20/24 History mcg-vilanterol 25 mcg/dose inhalation powder (Breo Ellipta) warfarin 1 mg tablet 1 mg PO DAILY@1800 06/20/24 06/20/24 06/19/24 History Physical Exam 2 Vital Signs: Vital Signs: Last Vital Signs Temp 98.5 F 06/21/24 07:53 Pulse 62 06/21/24 09:47 Resp 18 06/21/24 09:47 BP 142/65 H 06/21/24 07:53 Pulse Ox 95 06/21/24 07:53 O2 Del Method Room Air 06/21/24 07:53 BMI result Body Mass Index 30.6 Const: General: comfortable and no acute distress O rientation/consciousness: patient oriented x3 HEENT: Other: Unremarkable Head: Yes normal to inspection Neck: Neck: Yes normal visual inspection Chest: Chest palpation & inspection: normal inspection of the chest Resp: Other: Few basal crackles bilaterally Cardio: Palpation: normal PMI Heart sounds: S1 normal heart sound present, S2 normal heart sound present, no gallops, no murmurs and no rubs GI: Palpation (GI): Soft to palpation Back/Spine/Pelvis: Other: unremarkable Skin: General skin exam: no rashes or lesions noted Neuro: General: patient oriented x3 Extrem: General: Yes normal to inspection Psych: Mental Status: mental status grossly normal Objective Labs and Meds 06/21/24 07:08 06/21/24 05:38 Lab results: Laboratory Results - last 24 hr 06/20/24 06/20/24 06/20/24 14:34 16:33 17:36 WBC 6.1 RBC 3.81 L Hgb 11.2 L Hct 34.3 L MCV 90.0 MCH 29.4 MCHC 32.7 RDW 17.2 H Plt Count 137 L MPV 12.2 Immature Gran % (Auto) 0.3 Neut % (Auto) 77.7 H Lymph % (Auto) 9.0 L [place] % (Auto) 12.2 H Eos % (Auto) 0.3 Baso % (Auto) 0.5 Lymph # (Auto) 0.6 L [place] # (Auto) 0.8 Eos # (Auto) 0.0 Baso # (Auto) 0.0 Abs Immat Gran (auto) 0.02 Absolute Neuts (auto) 4.8 Absolute Nucleated RBC 0.000 Nucleated RBC % (auto) 0.0 PT 45.6 H INR 3.9 H APTT 44.0 H Sodium 143 Potassium 2.8 L* D Chloride 104 Carbon Dioxide 31 H Anion Gap 11 L BUN 16 Creatinine 1.83 H Estim Creat Clear Calc 31.4 Estimated GFR 36 POC Glucose Random Glucose 110 Calcium 8.3 L D Magnesium 2.2 Total Bilirubin 1.5 H AST 36 ALT 18 Alkaline Phosphatase 277 H Troponin I High Sens 58.1 H D 80.9 H B-Natriuretic Peptide 3512 H Total Protein 6.5 Albumin 3.2 L Influenza Type A (PCR) NEGATIVE Influenza Type B (PCR) NEGATIVE RSV RNA Qual (PCR) NEGATIVE SARS-CoV-2 RNA (RT-PCR) NEGATIVE 06/20/24 06/21/24 06/21/24 20:58 05:38 07:08 WBC 5.7 RBC 3.79 L Hgb 11.2 L Hct 34.0 L MCV 89.7 MCH 29.6 MCHC 32.9 RDW 17.3 H Plt Count 132 L MPV 12.1 Immature Gran % (Auto) 0.2 Neut % (Auto) 73.6 H Lymph % (Auto) 11.9 L [place] % (Auto) 13.1 H Eos % (Auto) 0.7 Baso % (Auto) 0.5 Lymph # (Auto) 0.7 L [place] # (Auto) 0.8 Eos # (Auto) 0.0 Baso # (Auto) 0.0 Abs Immat Gran (auto) 0.01 Absolute Neuts (auto) 4.2 Absolute Nucleated RBC 0.000 Nucleated RBC % (auto) 0.0 PT 35.2 H D INR 3.0 H APTT Sodium 142 Potassium 3.7 D Chloride 108 Carbon Dioxide 27 Anion Gap 11 L BUN 16 Creatinine 1.78 H Estim Creat Clear Calc 32.3 Estimated GFR 37 POC Glucose 122 H Random Glucose 97 Calcium 8.2 L Magnesium Total Bilirubin 1.7 H AST 30 ALT 16 Alkaline Phosphatase 257 H Troponin I High Sens B-Natriuretic Peptide Total Protein 6.4 L Albumin 3.0 L Influenza Type A (PCR) Influenza Type B (PCR) RSV RNA Qual (PCR) SARS-CoV-2 RNA (RT-PCR) 06/21/24 07:55 WBC RBC Hgb Hct MCV MCH MCHC RDW Plt Count MPV Immature Gran % (Auto) Neut % (Auto) Lymph % (Auto) [place] % (Auto) Eos % (Auto) Baso % (Auto) Lymph # (Auto) [place] # (Auto) Eos # (Auto) Baso # (Auto) Abs Immat Gran (auto) Absolute Neuts (auto) Absolute Nucleated RBC Nucleated RBC % (auto) PT INR APTT Sodium Potassium Chloride Carbon Dioxide Anion Gap BUN Creatinine Estim Creat Clear Calc Estimated GFR POC Glucose 100 Random Glucose Calcium Magnesium Total Bilirubin AST ALT Alkaline Phosphatase Troponin I High Sens B-Natriuretic Peptide Total Protein Albumin Influenza Type A (PCR) Influenza Type B (PCR) RSV RNA Qual (PCR) SARS-CoV-2 RNA (RT-PCR) ECG Interpretation: EKG shows ventricular paced rhythm at 57/Min. Underlying rhythm probably sinus but complexes are difficult to see. Imaging Radiologist's impression: Impressions Chest X-Ray 06/20/24 14:53 IMPRESSION: Cardiomegaly. Patchy opacity at the left lung base which may represent atelectasis or pneumonia. Possible small left pleural effusion. Follow-up is recommended. Electronically signed by: James Tuttle MD 06/20/2024 03:27 PM [facility] Assessment and Plan (1) Ventricular fibrillation: Status: Acute (2) Implantable cardioverter-defibrillator (ICD) discharge: Status: Acute (3) Hypokalemia: Status: Acute Plan Echocardiogram with LVEF of 25-30%. Advanced diastolic dysfunction. Dilated right ventricle with mildly reduced function. Dilated atria. Mild mitral/tricuspid regurgitation. Pulmonary hypertension. Admission potassium was 2.8 and currently 3.7. ICD strip from time of event suspected to be ventricular fibrillation requiring ICD shock. Hypokalemia with baseline cardiomyopathy could have precipitated the event. Potassium is to be repleted aggressively. Target of at least 4. Magnesium level is acceptable. Otherwise, on ICD evaluation he does have elevated OptiVol this suggests heart failure for the last several months. However, in April, there was a consultation with suggest that he was rather over diuresed causing YUMIKO. With active hypokalemia, may keep on current diuretic regimen. Otherwise, discharge planning. Will need outpatient labs for BMP. Procedures Date of Service Date of Service: 06/21/24
[2024-06-21 10:48] VITALS: BP 117/57; PULSE 62; RESP 16; TEMP 36.9; O2SAT 94
[2024-06-21 11:20] LABS: Glucose, Whole Blood 107 mg/dL (60-115)
--- NOTE | 2024-06-21 12:19 | PM.DS ---
DS: Providers Provider Date of Service: 06/21/24 Date of admission: 06/21/24 09:18 Date of discharge: 06/21/24 Primary care physician: MEHRAN TuttleP- Consults: 06/20/24 16:43 Consult to Cardiology Routine Consulting Provider: [facility] Reason for consultation: AICD discharge Has provider been notified: Yes DS: Diagnosis Discharge Diagnosis (1) Ventricular fibrillation: Status: Acute (2) Implantable cardioverter-defibrillator (ICD) discharge: Status: Acute (3) Hypokalemia: Status: Acute (4) Cardiomyopathy: Status: Acute DS: Summary Hospital Course Hospital Course: From the history and physical by the admitting hospitalist, Saúl Cifuentes DO, 06/20/24: 84-year-old male with past medical history AFib, ACS, nonischemic cardiomyopathy, ICD, COPD, asthma, HLD, HTN, CVA, presenting to the ED via EMS from home s/p AICD shocking him about 3 hours [employer]. States got up to go to the bathroom felt lightheaded/presyncopal and nauseous in the ICD when off. Reports symptomatic improvement at present. Does report SOB x1 week with worsening LE edema. Reports compliance with diuretic. States has been noncompliant with his Jardiance. Denies fever, chills, cough, chest pain, abdominal pain, vomiting. Found to be hypokalemic in ER with normal Mag. Admission requested for divalent repletion. He was admitted to the telemetry unit. No further AICD discharges and no arrhythmias on telemetry. Cardiology was consulted; per their recommendation: Echocardiogram with LVEF of 25-30%. Advanced diastolic dysfunction. Dilated right ventricle with mildly reduced function. Dilated atria. Mild mitral/tricuspid regurgitation. Pulmonary hypertension. Admission potassium was 2.8 and currently 3.7. ICD strip from time of event suspected to be ventricular fibrillation requiring ICD shock. Hypokalemia with baseline cardiomyopathy could have precipitated the event. Potassium is to be repleted aggressively. Target of at least 4. Magnesium level is acceptable. Otherwise, on ICD evaluation he does have elevated OptiVol this suggests heart failure for the last several months. However, in April, there was a consultation with suggest that he was rather over diuresed causing YUMIKO. With active hypokalemia, may keep on current diuretic regimen. Otherwise, discharge planning. Will need outpatient labs for BMP. Potassium level was 3.7 on 06/21; afterwards, he was given another 40 mEq PO and discharged on 20 mEq PO bid. BMP will be rechecked on 06/23/24 and he will follow up with [facility] in 1 week. Time Attestation Discharge Coordination Time (in mins): 40 Quality: Safe Use of Opioids Does Pt have an Active Cancer Diagnosis on the Problem List?: No Quality: Stroke Does the patient have a stroke diagnosis?: No Physical Exam Vital Signs: Vital Signs: Last Vital Signs Temp 98.4 F 06/21/24 10:48 Pulse 62 06/21/24 10:48 Resp 16 06/21/24 10:48 BP 117/57 L 06/21/24 10:48 Pulse Ox 94 06/21/24 10:48 O2 Del Method Room Air 06/21/24 10:48 BMI result Body Mass Index 30.6 DS: Data Data Completed and Pending Labs on day of discharge: Laboratory Results - last 24 hr 06/20/24 06/20/24 06/20/24 14:34 16:33 17:36 WBC 6.1 RBC 3.81 L Hgb 11.2 L Hct 34.3 L MCV 90.0 MCH 29.4 MCHC 32.7 RDW 17.2 H Plt Count 137 L MPV 12.2 Immature Gran % (Auto) 0.3 Neut % (Auto) 77.7 H Lymph % (Auto) 9.0 L [place] % (Auto) 12.2 H Eos % (Auto) 0.3 Baso % (Auto) 0.5 Lymph # (Auto) 0.6 L [place] # (Auto) 0.8 Eos # (Auto) 0.0 Baso # (Auto) 0.0 Abs Immat Gran (auto) 0.02 Absolute Neuts (auto) 4.8 Absolute Nucleated RBC 0.000 Nucleated RBC % (auto) 0.0 PT 45.6 H INR 3.9 H APTT 44.0 H Sodium 143 Potassium 2.8 L* D Chloride 104 Carbon Dioxide 31 H Anion Gap 11 L BUN 16 Creatinine 1.83 H Estim Creat Clear Calc 31.4 Estimated GFR 36 POC Glucose Random Glucose 110 Calcium 8.3 L D Magnesium 2.2 Total Bilirubin 1.5 H AST 36 ALT 18 Alkaline Phosphatase 277 H Troponin I High Sens 58.1 H D 80.9 H B-Natriuretic Peptide 3512 H Total Protein 6.5 Albumin 3.2 L Influenza Type A (PCR) NEGATIVE Influenza Type B (PCR) NEGATIVE RSV RNA Qual (PCR) NEGATIVE SARS-CoV-2 RNA (RT-PCR) NEGATIVE 06/20/24 06/21/24 06/21/24 20:58 05:38 07:08 WBC 5.7 RBC 3.79 L Hgb 11.2 L Hct 34.0 L MCV 89.7 MCH 29.6 MCHC 32.9 RDW 17.3 H Plt Count 132 L MPV 12.1 Immature Gran % (Auto) 0.2 Neut % (Auto) 73.6 H Lymph % (Auto) 11.9 L [place] % (Auto) 13.1 H Eos % (Auto) 0.7 Baso % (Auto) 0.5 Lymph # (Auto) 0.7 L [place] # (Auto) 0.8 Eos # (Auto) 0.0 Baso # (Auto) 0.0 Abs Immat Gran (auto) 0.01 Absolute Neuts (auto) 4.2 Absolute Nucleated RBC 0.000 Nucleated RBC % (auto) 0.0 PT 35.2 H D INR 3.0 H APTT Sodium 142 Potassium 3.7 D Chloride 108 Carbon Dioxide 27 Anion Gap 11 L BUN 16 Creatinine 1.78 H Estim Creat Clear Calc 32.3 Estimated GFR 37 POC Glucose 122 H Random Glucose 97 Calcium 8.2 L Magnesium Total Bilirubin 1.7 H AST 30 ALT 16 Alkaline Phosphatase 257 H Troponin I High Sens B-Natriuretic Peptide Total Protein 6.4 L Albumin 3.0 L Influenza Type A (PCR) Influenza Type B (PCR) RSV RNA Qual (PCR) SARS-CoV-2 RNA (RT-PCR) 06/21/24 06/21/24 07:55 10:50 WBC RBC Hgb Hct MCV MCH MCHC RDW Plt Count MPV Immature Gran % (Auto) Neut % (Auto) Lymph % (Auto) [place] % (Auto) Eos % (Auto) Baso % (Auto) Lymph # (Auto) [place] # (Auto) Eos # (Auto) Baso # (Auto) Abs Immat Gran (auto) Absolute Neuts (auto) Absolute Nucleated RBC Nucleated RBC % (auto) PT INR APTT Sodium Potassium Chloride Carbon Dioxide Anion Gap BUN Creatinine Estim Creat Clear Calc Estimated GFR POC Glucose 100 107 Random Glucose Calcium Magnesium Total Bilirubin AST ALT Alkaline Phosphatase Troponin I High Sens B-Natriuretic Peptide Total Protein Albumin Influenza Type A (PCR) Influenza Type B (PCR) RSV RNA Qual (PCR) SARS-CoV-2 RNA (RT-PCR) Discharge Plan Discharge Anticipated Discharge Date/Time: 06/21/24 12:01 Patient Disposition: Home, Self-Care Discharge Diagnosis: AICD discharge due to hypokalemia [low potassium] Referrals: Dagoberto Childs FNP- [Primary Care Provider] - 1 Week Bubba Mccullough MD [Physician] - 1 Week Discharge Medications: New potassium chloride 20 mEq tablet extended release 20 meq PO BID Qty: 60 0RF Continued (DME) blood-glucose meter [OneTouch Ultra2 Meter] Misc See Rx Instructions .Route Qty: 1 0RF Rx Instructions: Use to check fasting blood sugar and a random sugar daily (DME) OneTouch Ultra Test Strip See Rx Instructions .Route Qty: 100 5RF Rx Instructions: Use to check fasting blood sugar and a random sugar daily (DME) lancets [Onetouch Delica Safety Lancet] 30 gauge misc See Rx Instructions .Route Qty: 100 5RF Rx Instructions: Use to check fasting blood sugar and a random sugar daily albuterol sulfate 90 mcg/actuation HFA aerosol inhaler 2 puff inhalation Q6H PRN (Reason: Shortness Of Breath) 30 Days Qty: 8.5 3RF amiodarone 200 mg tablet 200 mg PO DAILY Qty: 90 3RF hydralazine 10 mg tablet 10 mg PO BID Qty: 60 3RF trazodone 100 mg tablet 100 mg PO BEDTIME PRN (Reason: Sleep) Jardiance 10 mg Tablet 10 mg PO DAILY Qty: 90 0RF atorvastatin 40 mg tablet 40 mg PO BEDTIME warfarin 1 mg tablet 1 mg PO DAILY@1800 fluticasone furoate-vilanterol [Breo Ellipta] 100-25 mcg/dose blister with device 1 inh inhalation DAILY diphenhydramine HCl [Benadryl Allergy] 25 mg Tablet 25 mg PO BID PRN (Reason: Itching) furosemide 40 mg Tablet 40 mg PO DAILY Qty: 30 0RF Protocol: Hold for SBP< HOLD for SBP < : 90 Discharge Orders: Discharge Order (Routine); Ordered 06/21/24 Ordered By: Kyle De La Rosa Diet: Low salt diet Activity on Discharge: As tolerated Stand Alone Forms: Patient Portal Discharge page Print Language: Belarusian Other Ambulatory Orders: Basic Metabolic Panel (Routine) Timeframe: [id number] Facility: [facility] - Location: Laboratory Ordered By: Kyle De La Rosa Care Plan Goals: cardiac health Health Concerns: AICD discharge due to hypokalemia [low potassium] Plan of Treatment: take potassium chloride 20 mEq twice daily recheck BMP [basic metabolic panel]- no fasting necessary- on 06/23/24 follow up with [facility] Cardiology in 1 week Please follow up with your primary care doctor within 1 week. Return to the hospital if you experience recurrent or worsening symptoms. Assessment: See Discharge Summary.
[2024-06-21] MEDS: Potassium Chloride ER 20 MEQ TAB.ER.PRT 40 MEQ PO (12:35)
--- NOTE | 2024-06-21 14:44 | MHC.CM.PN ---
PT REPORTS HE LIVES ALONE AND IS INDEPENDENT WITH SELF CARE HE SAYS HE HAS A VNA FOR SN, HOWEVER DOES NOT KNOW THE AGENCY NAME HE ALSO HAS A VARITYPIST THAT COMES FOR LIGHT CLEANING PT STATES HE HAS A CANE AND A WHEEL CHAIR HCP ON FILE PCP: MITCHEL [facility] IMM DELIVERED PT DISCHARGED HOME TODAY WITH RESUMPTION OF SERVICES [facility]
== END 2024-06-21 13:45 | disposition home or self-care (01) | DRG 640 ==
LOC: HO.ED 15:29 → HO.EDOVER 16:50 → HO.IMC 19:21
PROVIDERS: Physician Assistant; Physician Assistant Medical; Admitting Provider Hospitalist; Emergency Provider Emergency Medicine; PCP Nurse Practitioner Family; Visit Provider Family Medicine
DX: E87.6 Hypokalemia (principal); I49.01 Ventricular fibrillation; J44.9 Chronic obstructive pulmonary disease, unspecified; E11.9 Type 2 diabetes mellitus without complications; I25.5 Ischemic cardiomyopathy; I48.0 Paroxysmal atrial fibrillation; I08.1 Rheumatic disorders of both mitral and tricuspid valves; I27.20 Pulmonary hypertension, unspecified; Z45.02 Encounter for adjustment and management of automatic implantable cardiac defibrillator; Z79.01 Long term (current) use of anticoagulants; Z79.899 Other long term (current) drug therapy
CPT/HCPCS: 0241U; 36415; 71045; 80053; 82947; 83735; 83880; 84484; 85025; 85610; 85730; 93005; 94640; 96365; 96366; 99221; 99285; J3480

== ENCOUNTER → 2024-06-20 14:53 | Outpatient (BNV) | payer OTHER, SELFPAY | PROVIDERS: Emergency Provider Emergency Medicine; PCP Nurse Practitioner Family; Visit Provider Radiology Diagnostic Radiology | DX: I51.7 Cardiomegaly (principal); J98.11 Atelectasis; J90 Pleural effusion, not elsewhere classified | CPT/HCPCS: 71045 ==

== ENCOUNTER → 2024-06-20 15:04 | Outpatient (BNV) | payer OTHER, SELFPAY | PROVIDERS: Admitting Provider Hospitalist; Emergency Provider Emergency Medicine; PCP Nurse Practitioner Family; Visit Provider Internal Medicine | DX: I49.9 Cardiac arrhythmia, unspecified (principal); R94.31 Abnormal electrocardiogram [ECG] [EKG] | CPT/HCPCS: 93010 ==

== ENCOUNTER → 2024-06-20 16:38 | Outpatient (BNV) | payer OTHER, SELFPAY | PROVIDERS: Admitting Provider Hospitalist; Emergency Provider Emergency Medicine; PCP Nurse Practitioner Family; Visit Provider Hospitalist | DX: I49.01 Ventricular fibrillation (principal); Z45.02 Encounter for adjustment and management of automatic implantable cardiac defibrillator; E87.6 Hypokalemia; I42.9 Cardiomyopathy, unspecified | CPT/HCPCS: 99223; 99239 ==

== ENCOUNTER → 2024-06-21 09:18 | Outpatient (BNV) | payer OTHER, SELFPAY | PROVIDERS: Admitting Provider Hospitalist; Emergency Provider Emergency Medicine; PCP Nurse Practitioner Family; Visit Provider Internal Medicine | DX: I49.01 Ventricular fibrillation (principal); Z45.02 Encounter for adjustment and management of automatic implantable cardiac defibrillator; E87.6 Hypokalemia | CPT/HCPCS: 99223 ==

== ENCOUNTER 2024-06-24 09:57 | Outpatient (REF) | payer MEDICARE, OTHER, SELFPAY ==
[2024-06-24 13:46] LABS: Anion Gap 13 (12-20); Blood Urea Nitrogen 15 mg/dL (9-16); Calcium 8.5 mg/dL (8.4-10.2); Carbon Dioxide 27 mmol/L (22-29); Chloride 104 mmol/L (96-108); Estimated Glomerular Filt Rate 38; Glucose Random 91 mg/dL (60-115); Sodium 140 mmol/L (135-145)
== END 2024-06-24 09:58 | disposition home or self-care (01) ==
LOC: HO.HVNA 09:57
PROVIDERS: PCP Nurse Practitioner Family; Visit Provider Family Medicine
DX: E87.6 Hypokalemia (principal)
CPT/HCPCS: 36415; 80048

== ENCOUNTER 2024-06-26 13:28 | Outpatient (AMB) | payer MEDICARE, MEDICAID, SELFPAY ==
--- NOTE | 2024-06-26 14:14 | AM.OFFWIN_ITS ---
Intake Vital Signs 3 06/26/24 14:15 Height 5 ft 6 in Weight 193 lb BMI 31.1 BP 86/56 L Blood Pressure Location Rt brachial Position Sitting Pulse 78 Pulse Source Pulse Oximeter Pulse Oximetry (%) 96 Oxygen Delivery Method Room Air Intake Visit Reasons: EP-lt arm swollen Intake Note: Pt is here today for a walk in visit. Pt c/o L arm and hand swelling for the last 4 days. Patient Tobacco Use Status: Never used Tobacco Allergies lisinopril Allergy (Intermediate, Verified 06/26/24 14:17) Rash HPI HPI Comments 2 History of Present Illness0 Details 84 y/o male patient who presents to the clinic with c/o inflamed left upper extremity for 2-3 days. Pt was in a hospital for few days, where he had a Potassium IV infusion infiltrate into soft tissue. Denies pain, numbness or tingling. PFSH Medical History Chronic a-fib Atherosclerotic cardiovascular disease Fatigue High triglycerides Erectile dysfunction Typical atrial flutter Nonischemic cardiomyopathy Hearing loss COPD (chronic obstructive pulmonary disease) Atrial fibrillation Elevated blood sugar Asthma Hyperlipidemia HTN (hypertension) Stroke Surgical History Presence of single chamber implantable cardioverter-defibrillator (ICD) History of appendectomy History of tonsillectomy Family History Father Unknown family medical history Mother Unknown family medical history Social History Household Members: None Housing: Apartment Are you a primary primary care physician to a significant other at home: No Do you presently have visiting nurse or other home services: No Alcohol intake: current Alcohol intake frequency: holidays/special occasions only Patient Tobacco Use Status: Never used Tobacco Cigarettes Per Day: 1 Years Smoked: 70 +/- e-Cigarette/Vaping Use: Never Used Second Hand Smoke Exposure: No Advance Directives Date on File: 08/18/20 service: No Current occupational status: retired Cognitive needs: No Hearing needs: No Vision needs: No Review of Systems Const All systems reviewed & are unremarkable except as noted in HPI and below Physical Exam Vital Signs: Last Vital Signs Pulse 78 06/26/24 14:15 BP 86/56 L 01/16/25 14:15 Pulse Ox 96 06/26/24 14:15 Oxygen Delivery Method Room Air 06/26/24 14:15 BMI result Body Mass Index 31.1 Const General: no acute distress Nutritional Appearance: overweight Orientation/consciousness: patient oriented x3 Resp Effort & Inspection: normal respiratory effort and able to speak in complete sentences Auscultation: clear to auscultation bilaterally, no crackles, no rales, no rhonchi and no wheezes Cardio Heart sounds: S1 normal heart sound present and S2 normal heart sound present Skin Full body images: 2 1. swelling, puffiness with skin blanching, pale and fluid leaking to the surrounding tissue. Neuro General: patient oriented x3 and moves all extremities Extrem Shoulder/upper arm images: 2 1. swelling, puffiness with skin blanching, pale and fluid leaking to the surrounding tissue. Psych Speech and movement: Normal speech and movement present Assessment & Plan Assessment & Plan (1) Phlebitis: Code(s): I80.9 - Phlebitis and thrombophlebitis of unspecified site Plan: Wrapped upper arm with Selwyn bandage (compression bandage). Elevate extremity above Warm compress Coding Level of Care Code Est Pt Level 3 (50927) Diagnoses Phlebitis I80.9 Time Spent (min) 15
[2024-06-26 14:15] VITALS: BP 86/56; PULSE 78; O2SAT 96; BMI 31.1
== END 2024-06-26 15:12 | disposition home or self-care (01) ==
PROVIDERS: PCP Nurse Practitioner Family; Visit Provider Nurse Practitioner Family
DX: I80.9 Phlebitis and thrombophlebitis of unspecified site (principal)

== ENCOUNTER → 2024-06-26 13:28 | Outpatient (BNVA) | payer MEDICARE, SELFPAY | PROVIDERS: PCP Nurse Practitioner Family; Visit Provider Nurse Practitioner Family | DX: I80.9 Phlebitis and thrombophlebitis of unspecified site (principal) | CPT/HCPCS: 99212 ==

== ENCOUNTER 2024-07-02 17:41 | Inpatient (IN) | payer MEDICARE, OTHER, SELFPAY ==
[2024-07-02] VITALS (22 sets, daily range): BP systolic 76–119; BP diastolic 40–95; PULSE 52–107; RESP 15–22; TEMP 36.3–36.8; O2SAT 95–100; BMI 30.7; BMI 31.8
--- NOTE | ~2024-07-02 | XR_ITS ---
CLINICAL HISTORY: check line placement 1 view chest x-ray Comparison: CR - XR CHEST 1V - 07/02/24 19:39 EST Findings: Low lung volumes. Ill-defined left lower lung opacity. Cardiomegaly similar to prior. No acute fracture. IMPRESSION: 1. Right internal jugular central venous catheter tip near the cavoatrial junction. No pneumothorax. 2. Left lower lung opacities indeterminate. Recommend follow-up to clearing. This document has been electronically signed by: Stepan Herring MD on 07/03/2024 05:54:53
--- NOTE | ~2024-07-02 | XR_ITS ---
CLINICAL HISTORY: Shortness of breath R O pulmonary edema 1 view chest x-ray Comparison: CR/SR - XR CHEST 1V - 06/20/24 15:08 EST Findings: Hazy bilateral basilar lung opacities. Obscuration of the left hemidiaphragm, unchanged. No pneumothorax. Marked cardiomegaly, unchanged from prior. Left subclavian single lead pacemaker defibrillator unchanged. No acute fracture. IMPRESSION: 1. Hazy bilateral basilar lung opacities. Differential includes atelectasis, infection, pulmonary edema or aspiration. This document has been electronically signed by: Dyllan Alexis MD on 07/02/2024 20:07:48
--- NOTE | 2024-07-02 18:19 | ED.GENADULT ---
HPI - General Adult General Chief complaint: General Medical Stated complaint: Edema of extremities, gained 6 pounds 1 week Time Seen by Provider: 07/02/24 18:15 Source: patient Mode of arrival: EMS Limitations: no limitations History of Present Illness ED Provider: Dr. Pj Maxwell HPI narrative: 84-year-old male with past medical history AFib, ACS, nonischemic cardiomyopathy, AICD, COPD, asthma, HLD, HTN, CVA who presents emergency department for evaluation of 30 lb weight gain over 2 months, increased swelling of his BF arm, lower extremities and abdomen, shortness of breath and weakness to the point where he was unable to walk. Patient was seen by his visiting nurse today, he told the nurse that he was only eating popcorn since he has no appetite. The visiting nurse noted that the patient had gained at least 6 lb over the last week. The patient denied fever but states he was had chills. He has an occasional nonproductive cough. He denied chest pain. He has shortness of breath and dyspnea on exertion. States he was very weak and only can walk about 5-10 feet secondary to his weakness. He denied nausea, vomiting, diarrhea, dark black stools or bloody stools. Patient was admitted from 06/20/2024 until 06/21/2024 for ventricular fibrillation causing his AICD to fire, hypokalemia and cardiomyopathy. The patient's last echocardiogram was done on 04/28/2024: Conclusions: 1. Mildly dilated left ventricle with severely reduced LV ejection fraction 25-30% with grade 3 diastolic dysfunction 2. Severely dilated right ventricle with mildly reduced systolic function 3. Severely dilated left and right atrium 4. Mild mitral and tricuspid regurgitation 5. Moderately elevated right ventricular systolic pressure with significantly elevated right atrial pressures Related Data Home Medications ?Medication ?Instructions ?Recorded ?Confirmed trazodone 100 mg tablet 100 mg PO BEDTIME PRN Sleep 02/22/24 06/23/24 diphenhydramine HCl 25 mg tablet 25 mg PO BID PRN Itching 04/26/24 06/23/24 (Benadryl Allergy) atorvastatin 40 mg tablet 40 mg PO BEDTIME 06/20/24 06/23/24 fluticasone furoate 100 1 inh inhalation DAILY 06/20/24 06/23/24 mcg-vilanterol 25 mcg/dose inhalation powder (Breo Ellipta) warfarin 1 mg tablet 1 mg PO DAILY@1800 06/20/24 06/23/24 Previous Rx's ?Medication ?Instructions ?Recorded blood sugar diagnostic (OneTouch #100 ea 12/19/22 Ultra Test strips) blood-glucose meter (OneTouch #1 ea 12/19/22 Ultra2 Meter) lancets 30 gauge (Onetouch Delica #100 ea 12/19/22 Safety Lancet) albuterol sulfate 90 mcg/actuation 2 puff inhalation Q6H PRN 01/02/24 aerosol inhaler Shortness Of Breath 30 days #8.5 grams amiodarone 200 mg tablet 200 mg PO DAILY #90 tabs 02/21/24 empagliflozin 10 mg tablet 10 mg PO DAILY #90 tabs 02/26/24 (Jardiance) furosemide 40 mg tablet 40 mg PO DAILY #30 tabs 04/30/24 hydralazine 10 mg tablet 10 mg PO BID #60 tabs 06/12/24 potassium chloride 20 mEq 20 meq PO BID #60 tabs 06/21/24 tablet,extended release Allergies Allergy/AdvReac Type Severity Reaction Status Date / Time lisinopril Allergy Intermediate Rash Verified 07/02/24 18:11 Review of Systems Review of Systems: Yes all other systems are reviewed and are negative [facility] Past Medical History [facility] Narrative: Social history: Patient states that he at home alone. He smokes 2-3 cigarettes per month. He states that he drinks wine 2 to 3 times a month as well. Denies drug use. Medical History Chronic a-fib Atherosclerotic cardiovascular disease Fatigue High triglycerides Erectile dysfunction Typical atrial flutter Nonischemic cardiomyopathy Hearing loss COPD (chronic obstructive pulmonary disease) Atrial fibrillation Elevated blood sugar Asthma Hyperlipidemia HTN (hypertension) Stroke Surgical History Presence of single chamber implantable cardioverter-defibrillator (ICD) History of appendectomy History of tonsillectomy Family History Family History Father Unknown family medical history Mother Unknown family medical history Social History Social History Household Members: None Housing: Apartment Are you a primary youth care worker to a significant other at home: No Do you presently have visiting nurse or other home services: No Alcohol intake: current Alcohol intake frequency: holidays/special occasions only Alcohol type: wine Patient Tobacco Use Status: Never used Tobacco Cigarettes Per Day: 1 Years Smoked: 70 +/- Smoked in Last 30 Days: Yes e-Cigarette/Vaping Use: Never Used Second Hand Smoke Exposure: No Use of substances other than those prescribed or required for medical reasons: No Advance Directives: Yes Advance Directives on File: Yes Advance Directives Date on File: 08/18/20 Do you have a plan to hurt others: No Plan service: No Current occupational status: retired Cognitive needs: No Hearing needs: No Vision needs: No Physical Exam ED Vital Signs: Vital Signs - 24 hr 07/02/24 18:10 07/02/24 18:14 07/02/24 18:50 Temperature 98.3 F 98.3 F Pulse Rate 81 81 70 Pulse Rate [Monitor] Respiratory Rate 15 15 18 Blood Pressure 105/57 L 105/57 L 76/40 L Pulse Oximetry 96 96 95 Oxygen Delivery Method Room Air Room Air Room Air Oxygen Flow Rate 07/02/24 18:52 07/02/24 19:21 07/02/24 19:26 Temperature Pulse Rate 74 89 84 Pulse Rate [Monitor] Respiratory Rate 17 20 Blood Pressure 78/53 L 78/53 L 93/59 L Pulse Oximetry 96 Oxygen Delivery Method Room Air Oxygen Flow Rate 07/02/24 19:32 07/02/24 20:03 07/02/24 20:03 Temperature Pulse Rate 63 70 Pulse Rate [Monitor] 81 Respiratory Rate 16 22 H 22 H Blood Pressure 91/57 L 95/62 Pulse Oximetry 97 97 Oxygen Delivery Method Room Air Room Air Oxygen Flow Rate 07/02/24 20:36 07/02/24 20:37 07/02/24 20:43 Temperature Pulse Rate 70 70 84 Pulse Rate [Monitor] Respiratory Rate 21 H 22 H Blood Pressure 102/49 L 102/49 L 119/95 H Pulse Oximetry 98 97 Oxygen Delivery Method Room Air Oxygen Flow Rate 07/02/24 20:47 07/02/24 21:03 07/02/24 21:04 Temperature Pulse Rate 65 97 79 Pulse Rate [Monitor] Respiratory Rate 22 H 16 Blood Pressure 100/53 L 82/56 L 92/60 Pulse Oximetry 100 98 Oxygen Delivery Method Nasal Cannula Room Air Oxygen Flow Rate 2 BMI result Body Mass Index 31.8 Medications Administered Generic Name Dose Route Start Last Admin Trade Name Selwyn PRN Reason Stop Dose Admin Norepinephrine Bitartrate 8 mg in 250 mls @ 0 mls/hr 07/02/24 19:30 07/02/24 21:03 Levophed IVCONT 0.09 mcg/kg/min .Q0M JACKSON 15.07 mls/hr Titration Protocol Per Protocol Medical Decision Making Medical Decision Making MDM Narrative: 84-year-old male with past medical history AFib, ACS, nonischemic cardiomyopathy, AICD, COPD, asthma, HLD, HTN, CVA who presents emergency department for evaluation of 30 lb weight gain over 2 months with 6 lb increase over the last week, increased swelling of his right arm, bilateral lower extremities and abdomen, shortness of breath and weakness to the point where he was unable to walk. Vital signs revealed a low blood pressure of 105/57 otherwise unremarkable. Physical examination did reveal edema to the left upper extremity and 1+ pitting edema to the lower extremities. Patient was abdomen also is distended most likely secondary to 3rd spacing of fluid. Differential diagnosis: ?Includes but is not limited to myocardial infarction, myocardial ischemia, arrhythmia, cirrhosis, kidney failure, anemia, electrolyte abnormalities Course: 18:48 The patient was initial blood pressure was 105/57, repeat blood pressures reveal systolics in the 70-80 range. The patient's fluid overload status and low blood pressure suggests that he was in his worsening of his cardiomyopathy. The patient will be started on Levophed to increase his blood pressure to the point where he can hopefully diurese him. I did discuss the patient's presentation with the covering global sales director, Dr. Kwon. He concurred with starting the patient on Levophed as well and to work him up for an infectious process versus cardiogenic shock. He also recommended consulting the on-call principal system software engineer to determine if the patient can be care for here at this facility or if the patient needs a tertiary cardiac care facility. 20:19 My independent interpretation patient's laboratory evaluation is as follows: WBC was normal 5600. Normocytic anemia with an H&H of 11.8 and 35.4. Platelet count was normal 169,000. PT/INR were elevated at 2.8 and 32.5. PTT was elevated 42.9. BUN and creatinine are elevated 21 and 2.49 with a GFR of 25-these values reflect any acute kidney injury compared to 06/24/2024 when the patient's BUN was 15, creatinine 1.71 and GFR was 38. Bilirubin is elevated 1.4. AST elevated 39. Alk-phos elevated 361. COVID-19, RSV and influenza were negative. 21:07 I did discuss the patient's presentation over tiger text with the covering principal system software engineer, Dr. Newton who felt that the patient had cardiorenal syndrome. He felt that the patient could stay on Levophed and be diuresed here at this facility and did not require transfer to a tertiary care center. I did discuss the patient's presentation with the covering global sales director, Dr. Kwon and he accepted the patient into the intensive care unit. Admission/Observation Consideration of admission/observation: Escalation of care including admission/observation considered (Yes) Consult Healthcare Provider Management of the patient was discussed with: Film Or Tape Librarian (Mental Telepathist, Dr. Newton. Milling Supervisor, Dr. Kwon) Lab Data MDM Lab Attestation statement: I reviewed the patient's lab results. 07/02/24 18:59 07/02/24 19:48 Labs: Lab Results 07/02/24 07/02/24 07/02/24 Range/Units 18:59 19:18 19:48 WBC 5.6 (4.8-10.8) X10*3/uL RBC 3.85 L (4.60-5.80) X10*6/uL Hgb 11.8 L (14.0-18.0) g/dl Hct 35.4 L (42.0-52.0) % MCV 91.9 (80.0-98.0) fL MCH 30.6 (27.0-33.0) pg MCHC 33.3 (31.0-36.0) g/dl RDW 17.7 H (11.0-16.0) % Plt Count 169 D (160-400) X10*3/uL MPV 12.2 (9.4-12.4) fL Immature Gran % (Auto) 0.4 (0.0-0.4) % Neut % (Auto) 80.5 H (45-73) % Lymph % (Auto) 7.3 L (20-40) % [place] % (Auto) 11.2 H (2-11) % Eos % (Auto) 0.2 (0-4) % Baso % (Auto) 0.4 (0-2) % Lymph # (Auto) 0.4 L (1.2-4.9) X10*3/uL [place] # (Auto) 0.6 (0.1-1.2) X10*3/uL Eos # (Auto) 0.0 (0.0-0.4) X10*3/uL Baso # (Auto) 0.0 (0.0-0.2) X10*3/uL Abs Immat Gran (auto) 0.02 (0.00-0.03) X10*3/uL Absolute Neuts (auto) 4.5 (2.0-8.3) x10*3/uL Absolute Nucleated RBC 0.000 (0.0-0.012) X10*3/uL Nucleated RBC % (auto) 0.0 (0.0-0.2) /100WBC PT 32.5 H (10.9-12.4) SEC INR 2.8 H (0.9-1.1) APTT 42.9 H (26.0-36.8) SEC Sodium 138 (135-145) mmol/L Potassium 4.8 (3.3-5.1) mmol/L Chloride 106 (96-108) mmol/L Carbon Dioxide 24 (22-29) mmol/L Anion Gap 13 (12-20) BUN 21 H (9-16) mg/dL Creatinine 2.49 H (0.5-1.4) mg/dL Estim Creat Clear Calc 23.5 Estimated GFR 25 Random Glucose 95 (60-115) mg/dL Calcium 9.2 D (8.4-10.2) mg/dL Total Bilirubin 1.4 H (0.0-1.0) mg/dL AST 39 H (5-37) U/L ALT 26 (0-40) U/L Alkaline Phosphatase 361 H (39-117) U/L Troponin I High Sens 14.9 D (<3.5-35.0) ng/L B-Natriuretic Peptide 3794 H (<100) pg/mL Total Protein 7.0 (6.5-8.0) g/dL Albumin 3.3 L (3.5-5.0) g/dL Lipase 36 (8-78) U/L Influenza Type A (PCR) NEGATIVE (Negative) Influenza Type B (PCR) NEGATIVE (Negative) RSV RNA Qual (PCR) NEGATIVE (Negative) SARS-CoV-2 RNA (RT-PCR) NEGATIVE (Negative) Independent Interpretation I performed an independent interpretation of an: EKG Interpretation: My independent interpretation of the patient's 12 EKG done at 20:32 hours is as follows: Atrial fibrillation with a rate of 80, prolonged QRS of 104 milliseconds, normal QTC of 431 milliseconds, very low voltage, Q-waves V1 through V5, flattened T-waves compared to EKG dated 06/20/2024 there are no significant changes My independent interpretation patient's chest x-ray is as follows: Significant cardiomegaly with increased interstitial infiltrates consistent with congestive heart failure Radiology Impression Discussion of test interpretation with radiology: I have reviewed the radiologist's reading. External Record Review External record reviewed: Inpatient record Chronic Conditions Patient?s care impacted by: Other (Ischemic cardiomyopathy) Critical Care Time Critical Care Time Critical Care Time: Yes Total Critical Care Time: 80 Attestation: Critical Care: The patient was critically ill with a high probability of imminent or life threatening deterioration. I spent greater than 30 minutes of discontinuous time evaluating the patient,delivering critical care at the bedside, discussing and evaluating pertinent data with consultants. Critical care time does not include time spent performing separately billable procedures or teaching. Total time spent performing critical care was 80 minutes. Discharge Plan Discharge Clinical Impression: Cardiogenic shock, Fluid overload, Acute hypotension Patient Disposition: Admitted As Inpatient Print Language: Malawian
--- OUTSIDE RECORDS SUMMARY | 2024-07-02 18:36 | XMS_ITS | Encounter Summary ---
Author Organization [facility] Address [address] [place] [address] Care Team Providers Care Personal Service Workers Name Role Phone Donald Schroeder MD Primary Care Provider [phone] Encounter Details Date Type Department Care Team (Late st Contact Info) Description 05/01/2024 Lab Requisition [facility] - Main Lab [address] [facility] [place] [address] Donald Schroeder MD [address] [place] [phone] long-term (current) use of anticoagulants; Type 2 diabetes mellitus without complications (CMS/HCC); Anemia, unspecified Social History Tobacco Use Types Packs/Day Years Used Date Smoking Tobacco: Never Assessed Sex and Gender Information Value Date Recorded Sex Assigned at Not on file Gender Identity Not on file Sexual Orientation Not on file documented as of this encounter Plan of Treatment Not on file documented as of this encounter Procedures Procedure Name Priority Date/Time Associated Diagnosis Comments PROTHROMBIN TIME WITH INR Routine 05/01/2024 7:34 AM EST long term (current) use of anticoagulants Type 2 diabetes mellitus without complications (CMS/HCC) Anemia, unspecified COMPLETE BLOOD COUNT Routine 05/01/2024 7:34 AM EST long-term (current) use of anticoagulants Type 2 diabetes mellitus without complications (CMS/HCC) Anemia, unspecified THYROID STIMULATING HORMONE Routine 05/01/2024 7:34 AM EST long term (current) use of anticoagulants Type 2 diabetes mellitus without complications (CMS/HCC) Anemia, unspecified HEMOGLOBIN A1C Routine 05/01/2024 7:34 AM EST long term (current) use of anticoagulants Type 2 diabetes mellitus without complications (CMS/HCC) Anemia, unspecified COMPREHENSIVE METABOLIC PANEL Routine 05/01/2024 7:34 AM EST long term (current) use of anticoagulants Type 2 diabetes mellitus without complications (CMS/HCC) Anemia, unspecified documented in this encounter Results * (ABNORMAL) Prothrombin time with INR (05/01/2024 7:34 AM EST) Pathologist [facility] Protime 39.9(H) 10.6 - 13.9 sec LAB COAGULATION METHOD 05/01/2024 11:00 AM EST [facility] INR 3.2 LAB COAGULATION METHOD 05/01/2024 11:00 AM EST [facility] Blood Venous blood specimen / Unknown Venipuncture / Unknown 05/01/2024 7:34 AM EST 05/01/2024 10:10 AM EST Donald Schroeder MD LAB BLOOD ORDERABL ES Performing Organization Address City/[facility]/ZIP Co de Phone Number [facility] [address] [place] [address], * Thyroid stimulating hormone (05/01/2024 7:34 AM EST) [facility] TSH 1.35 0.40 - 4.00 mcIU/mL LAB CHEMISTRY METHOD 05/01/2024 11:30 AM EST [facility] Blood Venous blood specimen / Unknown Venipuncture / Unknown 05/01/2024 7:34 AM EST 05/01/2024 10:10 AM EST Donald Schroeder MD LAB BLOOD ORDERABL ES Performing Organization Address City/[facility]/ZIP Co de Phone Number [facility] [address] [place] [address], [place] [phone] * Hemoglobin A1c (05/01/2024 7:34 AM EST) [facility] Hemoglobin A1C 5.5 <6.5 % LAB CHEMISTRY METHOD 05/01/2024 2:25 PM EST [facility] Mean Bld Glu Estim. 111 mg/dL LAB CHEMISTRY METHOD 05/01/2024 2:25 PM [facility] Blood Venous blood specimen / Unknown Venipuncture / Unknown 05/01/2024 7:34 AM EST 05/01/2024 10:10 AM EST Donald Schroeder MD LAB BLOOD ORDERABL ES [facility] [address] [place] [address], * (ABNORMAL) Comprehensive metabolic panel (05/01/2024 7:34 AM EST) Sodium 142 133 - 145 mmol/L LAB CHEMISTRY METHOD 05/01/2024 11:24 AM [facility] Potassium 3.8 3.5 - 5.5 mmol/L LAB CHEMISTRY METHOD 05/01/2024 11:24 AM [facility] Chloride 106 96 - 110 mmol/L LAB CHEMISTRY METHOD 05/01/2024 11:24 AM [facility] CO2 28 21 - 32 mmol/L LAB CHEMISTRY METHOD 05/01/2024 11:24 AM [facility] Anion Gap 8 3 - 11 LAB CHEMISTRY METHOD 05/01/2024 11:24 AM [facility] Glucose 89 70 - 100 mg/dL LAB CHEMISTRY METHOD 05/01/2024 11:24 AM [facility] BUN 14 5 - 25 mg/dL LAB CHEMISTRY METHOD 05/01/2024 11:24 AM [facility] Creatinine 1.52(H) 0.70 - 1.30 mg/dL LAB CHEMISTRY METHOD 05/01/2024 11:24 AM [facility] eGFR 45(L) >=60 mL/min/1. 73m2 LAB CHEMISTRY METHOD 05/01/2024 11:24 AM [facility] Comment:Calculation based on the??Chronic Kidney Disease Epidemiology Collaboration (CKD-EPI) equation refit??without adjustment for race. BUN/Creatinine Ratio 9.2 LAB CHEMISTRY METHOD 05/01/2024 11:24 AM [facility] Calcium 8.5 8.5 - 10.5 mg/dL LAB CHEMISTRY METHOD 05/01/2024 11:24 AM [facility] AST (SGOT) 38 10 - 42 unit/L LAB CHEMISTRY METHOD 05/01/2024 11:24 AM [facility] ALT (SGPT) 26 10 - 60 unit/L LAB CHEMISTRY METHOD 05/01/2024 11:24 AM [facility] Alkaline Phosphatase 259(H) 42 - 121 unit/L LAB CHEMISTRY METHOD 05/01/2024 11:24 AM [facility] Total Protein 6.0 6.0 - 8.0 g/dL LAB CHEMISTRY METHOD 05/01/2024 11:24 AM [facility] Albumin 2.6(L) 3.2 - 5.0 g/dL LAB CHEMISTRY METHOD 05/01/2024 11:24 AM [facility] Total Bilirubin 2.9(H) 0.0 - 1.4 mg/dL LAB CHEMISTRY METHOD 05/01/2024 11:24 AM [facility] Blood Venous blood specimen / Unknown Venipuncture / Unknown 05/01/2024 7:34 AM EST 05/01/2024 10:10 AM EST Donald Schroeder MD LAB BLOOD ORDERABL ES [facility] [address] [place] [address], * (ABNORMAL) Complete blood count (05/01/2024 7:34 AM EST) WBC 7.3 4.8 - 10.8 K/mcL LAB HEMETOLOGY METHOD 05/01/2024 10:57 AM [facility] RBC 3.80(L) 4.50 - 5.50 M/mcL LAB HEMETOLOGY METHOD 05/01/2024 10:57 AM [facility] Hemoglobin 11.0(L) 13.5 - 17.5 g/dL LAB HEMETOLOGY METHOD 05/01/2024 10:57 AM [facility] Hematocrit 34.9(L) 42.0 - 54.0 % LAB HEMETOLOGY METHOD 05/01/2024 10:57 AM [facility] MCV 92.8 79.0 - 98.0 FL LAB HEMETOLOGY METHOD 05/01/2024 10:57 AM [facility] MCH 29.3 27.0 - 32.0 pcg LAB HEMETOLOGY METHOD 05/01/2024 10:57 AM [facility] MCHC 31.5(L) 32.0 - 37.0 g/dL LAB HEMETOLOGY METHOD 05/01/2024 10:57 AM [facility] RDW 21.2(H) 11.0 - 15.0 % LAB HEMETOLOGY METHOD 05/01/2024 10:57 AM [facility] Platelets 151 130 - 400 K/[facility] LAB HEMETOLOGY METHOD 05/01/2024 10:57 AM [facility] MPV 13.3(H) 7.0 - 11.0 FL LAB HEMETOLOGY METHOD 05/01/2024 10:57 AM [facility] NRBC 0.0 <1.0 % LAB HEMETOLOGY METHOD 05/01/2024 10:57 AM [facility] NRBC Absolute 0.00 <0.10 K/mcL LAB HEMETOLOGY METHOD 05/01/2024 10:57 AM [facility] Blood Venous blood specimen / Unknown Venipuncture / Unknown 05/01/2024 7:34 AM EST 05/01/2024 10:10 AM EST Donald Schroeder MD LAB BLOOD ORDERABL ES [facility] ([facility] [address] [place] [address] [phone] documented in this encounter Visit Diagnoses Diagnosis long-term (current) use of anticoagulants Long-term (current) use of anticoagulants Type 2 diabetes mellitus without complications (CMS/HCC) Anemia, unspecified documented in this encounter Care Teams Personal Service Workers Relationship Specialty Start Date End Date Donald Schroeder MD [address] [place] [phone] PCP - General Internal Medicine 05/01/24 documented as of this encounter
--- OUTSIDE RECORDS SUMMARY | 2024-07-02 18:36 | XMS_ITS | Encounter Summary ---
Author Organization [facility] Address [address] [place] [address] Phone Care Team Providers Care Natural Resources Engineer Name Role Phone Fernando Figueroa MD Primary Care Provider [phone] Encounter Details Date Type Department Care Team (Late st Contact Info) Description 02/22/2023 Documentation Only [facility] [address] [place] [address] Davina Camp [place] Social History Tobacco Use Types Packs/Day Years Used Date Smoking Tobacco: Some Days Cigarettes Smokeless Tobacco: Never Alcohol Use Standard Drinks/Week Comments Yes 0 (1 standard drink = 0.6 oz pur e alcohol) Sex and Gender Information Value Date Recorded Sex Assigned at Not on file Legal Sex Male 8:43 AM EST Gender Identity Not on file Sexual Orientation Not on file documented as of this encounter Plan of Treatment Not on file documented as of this encounter Visit Diagnoses Not on filedocumented in this encounter Care Teams Natural Resources Engineer Relationship Specialty Start Date End Date Fernando Figueroa MD PCP - General Nephrology 03/16/23 documented as of this encounter
--- OUTSIDE RECORDS SUMMARY | 2024-07-02 18:36 | XMS_ITS | Encounter Summary ---
Author Organization [facility] Address [address] [place] [address] Care Team Providers Care Global Compensation Manager Name Role Phone Donald Schroeder MD Primary Care Provider [phone] Encounter Details Date Type Department Care Team (Late st Contact Info) Description 05/06/2024 Lab Requisition [facility] - Main Lab [address] [facility] [place] [address] Donald Schroeder MD [address] [place] [id number] [facility] (current) use of anticoagulants Social History Tobacco Use Types Packs/Day Years [...] Diagnosis Comments PROTHROMBIN TIME WITH INR Routine 05/06/2024 8:32 AM EST 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 documented in this encounter Results * (ABNORMAL) Prothrombin time with INR (05/06/2024 8:32 AM EST) Protime 33.7(H) 10.6 - 13.9 sec LAB COAGULATION METHOD 05/06/2024 10:41 AM EST [facility] INR 2.7 LAB COAGULATION METHOD 05/06/2024 10:41 AM EST [facility] Blood Venous blood specimen / Unknown Venipuncture / Unknown 05/06/2024 8:32 AM EST 05/06/2024 9:24 AM EST Donald Schroeder MD LAB BLOOD ORDERABL ES [facility] [address] [place] [address], documented in this encounter Visit Diagnoses Diagnosis [facility] (current) use of anticoagulants Long-term (current) use of anticoagulants documented in this encounter Care Teams Global Compensation Manager Relationship Specialty Start Date End Date Donald Schroeder MD [address] [place] [phone] PCP - General Internal Medicine 05/01/24 documented as of this encounter
--- OUTSIDE RECORDS SUMMARY | 2024-07-02 18:36 | XMS_ITS | Clinical Summary ---
Author Organization [facility] Address [address] [place] [address] Phone Care Team Providers Care Committee Member Name Role Phone Fernando Figueroa MD Primary Care Provider [phone] Allergies No known active allergies Medications atorvastatin (LIPITOR) 40 MG tablet Take 40 mg by mouth 1 (one) time each day 3 Active Breo Ellipta 100-25 MCG/ACT aerosol powder INHALE 1 PUFF BY MOUTH DAILY 3 Active furosemide (LASIX) 20 MG tablet Take 2 tablets by mouth 1 (one) time each day in the morning 1 tab PM 3 Active lisinopril 5 MG tablet Take 5 mg by mouth 1 (one) time each day 3 Active metoprolol succinate XL (TOPROL-XL) 100 MG 24 hr tablet Take 100 mg by mouth 1 (one) time each day 3 Active sildenafil (VIAGRA) 100 MG tablet TAKE 1 TABLET BY MOUTH DAILY NEEDED FOR SEXUAL ACTIVITY FOR 10 DAYS. 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/2023 Renal osteodystrophy 03/16/2023 Chronic kidney disease 02/02/2023 Hypertension 02/02/2023 Stage 3a chronic kidney disease 02/02/2023 Social History Tobacco Use Types Packs/Day Years Used Date Smoking Tobacco: Some Days Cigarettes Smokeless Tobacco: Never Alcohol Use Standard Drinks/Week Comments Yes 0 (1 standard drink = 0.6 oz pur e alcohol) Sex and Gender Information Value Date Recorded Sex Assigned at Not on file Legal Sex Male 8:43 AM EST Gender Identity Not on file Sexual Orientation Not on file Last Filed Vital Signs Vital Sign Reading Time Taken Comments Blood Pressure 128/63 03/16/2023 10:16 AM EDT Pulse 66 03/16/2023 10:16 AM EDT Temperature - - Respiratory Rate - - Oxygen Saturation 99% 03/16/2023 10:16 AM EDT Inhaled Oxygen Concentration - - Weight 93.4 kg (206 lb) 03/16/2023 10:16 AM EDT Height - - Body Mass Index - - Plan of Treatment Health Maintenance Due Date Last Done Comments Pneumococcal Vaccine: 65+ Ye ars (1 of 2 - PCV) 1946 Influenza Vaccine (#1) 2024 Hepatitis B Vaccine Aged Out No longe r eligible based on patient's age to complete this topic Insurance [facility] [employer] [place], [place] [id number] [facility] [employer] [facility] [employer] Care Teams Committee Member Relationship Specialty Start Date End Date Fernando Figueroa MD PCP - General Nephrology 03/16/23
--- OUTSIDE RECORDS SUMMARY | 2024-07-02 18:36 | XMS_ITS | Clinical Summary ---
Author Organization Unknown Care Team Providers Care Environmental Remediation Engineer Name Role Phone CRISTOFER DUMONT, MITCHEL Unavailable Unavailable CHRISTINA ART, MARTY Unavailable Unavailable Payers Payer Name Policy Type Policy Number Effective Date Expira tion Date MEDICARE - NGS [place] - PDGM [id number] MEDICAID [facility] [id number] Problems Condition Name Condition Details Condition Category Status Onset Date Resolution Date Last Treatment Date Treating Clinician Comments CHRONIC ATRIAL FIBRILLATION , UNSPECIFIED Active 06-11 00:00: 00 HYP HRT AND CHR KDNY DIS W HRT FAIL AND STG 1-4/UNSP CHR KDNY Active 06-11 00:00: 00 ACUTE ON CHRONIC SYSTOLIC (CONGESTIVE) HEART FAILURE Active 06-11 00:00: 00 TYPE 2 DIABETES MELLITUS W DIABETIC CHRONIC KIDNEY DISEASE Active 06-11 00:00: 00 CHRONIC KIDNEY DISEASE, STAGE 3 UNSPECIFIED Active 06-11 00:00: 00 BENIGN PROSTATIC HYPERPLASIA WITHOUT LOWER URINRY TRACT SYMP Active 06-11 00:00: 00 ATHSCL HEART DISEASE OF [place] CORONARY ARTERY W/O ANG PCTRS Active 06-11 00:00: 00 CHRONIC OBSTRUCTIVE PULMONARY DISEASE, UNSPECIFIED Active 06-11 00:00: 00 OTHER CARDIOMYOPAT HIES Active 06-11 00:00: 00 TYPICAL ATRIAL FLUTTER Active 06-11 00:00: 00 NICOTINE DEPENDENCE, CIGARETTES, UNCOMPLICATE D Active 06-11 00:00: 00 SLEEP APNEA, UNSPECIFIED Active 06-11 00:00: 00 MALE ERECTILE DYSFUNCTION, UNSPECIFIED Active 06-11 00:00: 00 UNSPECIFIED HEARING LOSS, UNSPECIFIED EAR Active 06-11 00:00: 00 ACQUIRED ABSENCE OF OTHER ORGANS Active 06-11 00:00: 00 PRESENCE OF AUTOMATIC (IMPLANTABLE ) CARDIAC DEFIBRILLATO R Active 06-11 00:00: 00 ASSISTED (CURRENT) USE OF ORAL HYPOGLYCEMIC DRUGS Active 06-11 00:00: 00 Allergies, Adverse Reactions, Alerts Allergy Name Allergy Type Status Severity Reaction(s) Onset Date Inactive Date Treating Clinician Comments NKA Propensity to adverse reactions Active 2024-06 18:17:4 7 Medications Ordered Medication Name Filled Medication Name Start Date Stop Date Current Medication? Ordering Clinician Indication Dosage Frequency Signature (SIG) Comments Components hydralazine 25 mg tablet 02-25 00:00: 00 05-08 23:59 :00 No [id number] Per instruc tions THREE TIMES DAILY Per instructio ns THREE TIMES DAILY (route: oral) Med Classific ation: Cardiovas cular Therapy Agents Jardiance 10 mg tablet 02-25 00:00: 00 05-08 23:59 :00 No [id number] Per instruc tions DAILY Per instructio ns DAILY (route: oral) Med Classific ation: Endocrine Breo Ellipta 100 mcg-25 mcg/dose powder for inhalation 02-24 00:00: 00 05-08 23:59 :00 No [id number] Per instruc tions DAILY Per instructio ns DAILY (route: inhalation ) Med Classific ation: Respirato ry Therapy Agents metoprolol succinate ER 25 mg tablet,exte nded release 24 hr 02-22 00:00: 00 05-08 23:59 :00 No [id number] Per instruc tions DAILY Per instructio ns DAILY (route: oral) Med Classific ation: Cardiovas cular Therapy Agents warfarin 2 mg tablet 03-04 00:00: 00 05-08 23:59 :00 No [id number] 2 mg DAILY 2 mg DAILY (route: oral) Med Classific ation: Hematolog ical Agents amiodarone 200 mg tablet 03-04 00:00: 00 05-08 23:59 :00 No [id number] Unavailable 1 tablet DAILY 1 tablet DAILY (route: oral) Med Classific ation: Cardiovas cular Therapy Agents albuterol sulfate HFA 90 mcg/actuati on aerosol inhaler 03-04 00:00: 00 05-08 23:59 :00 No [id number] 2 puff EVERY 6 HOURS 2 puff EVERY 6 HOURS (route: inhalation ) Med Classific ation: Respirato ry Therapy Agents atorvastati n 10 mg tablet 03-04 00:00: 00 05-08 23:59 :00 No [id number] 1 tablet DAILY 1 tablet DAILY (route: oral) Med Classific ation: Cardiovas cular Therapy Agents Lasix 20 mg tablet 03-04 00:00: 00 04-10 23:59 :00 No [id number] 1 tablet 2 TIMES DAILY 1 tablet 2 TIMES DAILY (route: oral) Med Classific ation: Cardiovas cular Therapy Agents sildenafil 100 mg tablet 03-04 00:00: 00 05-08 23:59 :00 No [id number] 100 mg DAILY 100 mg DAILY (route: oral) Med Classific ation: Drugs to treat Erectile Dysfuncti on warfarin 1 mg tablet 03-04 00:00: 00 05-08 23:59 :00 No [id number] 1 mg DAILY 1 mg DAILY (route: oral) Med Classific ation: Hematolog ical Agents torsemide 20 mg tablet 2023-06 00:00: 00 05-08 23:59 :00 No [id number] 2 tablet DAILY 2 tablet DAILY (route: oral) Med Classific ation: Cardiovas cular Therapy Agents amiodarone 200 mg tablet 2023-06 00:00: 00 06-16 23:59 :00 No [id number] 1 tablet DAILY 1 tablet DAILY (route: oral) Med Classific ation: Cardiovas cular Therapy Agents atorvastati n 40 mg tablet 2023-06 00:00: 00 06-16 23:59 :00 No [id number] 1 tablet BEDTIME 1 tablet BEDTIME (route: oral) Med Classific ation: Cardiovas cular Therapy Agents Breo Ellipta 100 mcg-25 mcg/dose powder for inhalation 2023-06 00:00: 00 06-16 23:59 :00 No [id number] 1 inhalat ion DAILY 1 inhalation DAILY (route: inhalation ) Med Classific ation: Respirato ry Therapy Agents diphenhydra mine 25 mg tablet 2023-06 00:00: 00 06-16 23:59 :00 No [id number] 1 tablet 2 TIMES DAILY 1 tablet 2 TIMES DAILY (route: oral) Med Classific ation: Respirato ry Therapy Agents furosemide 40 mg tablet 2023-06 00:00: 00 06-16 23:59 :00 No [id number] 1 tablet DAILY 1 tablet DAILY (route: oral) Med Classific ation: Cardiovas cular Therapy Agents hydralazine 10 mg tablet 2023-06 00:00: 00 06-16 23:59 :00 No [id number] 1 tablet 2 TIMES DAILY 1 tablet 2 TIMES DAILY (route: oral) Med Classific ation: Cardiovas cular Therapy Agents Jardiance 10 mg tablet 2023-06 00:00: 00 06-16 23:59 :00 No [id number] 1 tablet DAILY 1 tablet DAILY (route: oral) Med Classific ation: Endocrine trazodone 100 mg tablet 2023-06 00:00: 00 05-24 23:59 :00 No [id number] 1 tablet BEDTIME 1 tablet BEDTIME (route: oral) Med Classific ation: Central Nervous System Agents Ventolin HFA 90 mcg/actuati on aerosol inhaler 2023-06 00:00: 00 06-16 23:59 :00 No [id number] 2 puff EVERY 6 HOURS 2 puff EVERY 6 HOURS (route: inhalation ) Med Classific ation: Respirato ry Therapy Agents warfarin 2 mg tablet 2023-06 00:00: 00 05-13 23:59 :00 No [id number] 1 tablet DAILY 1 tablet DAILY (route: oral) Med Classific ation: Hematolog ical Agents warfarin 2 mg tablet 2023-06 00:00: 00 05-19 23:59 :00 No [id number] Per instruc tions DIRECTED Per instructio ns DIRECTED (route: oral) Med Classific ation: Hematolog ical Agents warfarin 2 mg tablet 2023-06 00:00: 00 05-26 23:59 :00 No [id number] Per instruc tions DIRECTED Per instructio ns DIRECTED (route: oral) Med Classific ation: Hematolog ical Agents warfarin 1 mg tablet 2023-06 00:00: 00 06-03 23:59 :00 No [id number] 1 tablet DAILY 1 tablet DAILY (route: oral) Med Classific ation: Hematolog ical Agents warfarin 1 mg tablet 2023-06 00:00: 00 06-10 23:59 :00 No [id number] 1 mg DAILY 1 mg DAILY (route: oral) Med Classific ation: Hematolog ical Agents warfarin 1 mg tablet 2023-06 00:00: 00 06-16 23:59 :00 No [id number] 1 mg DAILY 1 mg DAILY (route: oral) Med Classific ation: Hematolog ical Agents albuterol sulfate HFA 90 mcg/actuati on aerosol inhaler 06-17 00:00: 00 Yes [id number] 2 puff NEEDED 2 puff NEEDED (route: inhalation ) Med Classific ation: Respirato ry Therapy Agents amiodarone 200 mg tablet 06-17 00:00: 00 Yes [id number] 1 tablet DAILY 1 tablet DAILY (route: oral) Med Classific ation: Cardiovas cular Therapy Agents hydralazine 10 mg tablet 06-17 00:00: 00 Yes [id number] 1 tablet 2 TIMES DAILY 1 tablet 2 TIMES DAILY (route: oral) Med Classific ation: Cardiovas cular Therapy Agents Jardiance 10 mg tablet 06-17 00:00: 00 Yes [id number] 1 tablet DAILY 1 tablet DAILY (route: oral) Med Classific ation: Endocrine torsemide 20 mg tablet 06-17 00:00: 00 Yes [id number] 1 tablet DAILY 1 tablet DAILY (route: oral) Med Classific ation: Cardiovas cular Therapy Agents trazodone 100 mg tablet 06-17 00:00: 00 Yes [id number] 1 tablet NEEDED 1 tablet NEEDED (route: oral) Med Classific ation: Central Nervous System Agents warfarin 1 mg tablet 06-17 00:00: 00 06-24 23:59 :00 No [id number] 1 tablet DAILY 1 tablet DAILY (route: oral) Med Classific ation: Hematolog ical Agents warfarin 1 mg tablet 06-30 00:00: 00 06-30 23:59 :00 No [id number] 1 tablet DAILY 1 tablet DAILY (route: oral) Med Classific ation: Hematolog ical Agents Immunizations Ordered Immunization Name Filled Immunization Name Date Status Comments Refusal Reason INFLUENZA, TIV (INACTIVATED) 2024-03-05 00:00:00 Vital Signs Vital Name Observation Time Observation Value Commen ts Temperature 2024-07-01 09:07:00.000 98.8 [degF] Temperature 2024-06-28 09:52:00.000 98.7 [degF] Temperature 2024-06-26 19:38:00.000 98 [degF] Temperature 2024-06-24 10:17:00.000 98 [degF] Temperature 2024-06-16 18:16:00.000 98 [degF] BMI (%) 2024-06-17 12:38:03.000 27 kg/m2 Height 2024-06-17 12:37:58.000 66 [in_us] Pulse 2024-07-01 09:07:00.000 67 /min Pulse 2024-06-28 09:52:00.000 60 /min Pulse 2024-06-26 19:36:00.000 88 /min Pulse 2024-06-24 10:17:00.000 60 /min Pulse 2024-06-16 18:16:00.000 78 /min O2 Saturation (%) 2024-07-01 09:07:00.000 97 % O2 Saturation (%) 2024-06-28 09:53:00.000 97 % O2 Saturation (%) 2024-06-26 19:36:00.000 95 % O2 Saturation (%) 2024-06-24 10:18:00.000 96 % Respirations 2024-07-01 09:07:00.000 20 /min Respirations 2024-06-28 09:52:00.000 18 /min Respirations 2024-06-26 19:36:00.000 20 /min Respirations 2024-06-24 10:17:00.000 18 /min Respirations 2024-06-16 18:16:00.000 18 /min Weight (lbs) 2024-07-01 09:07:00.000 190 [lb_av] Weight (lbs) 2024-06-28 09:52:00.000 187 [lb_av] Weight (lbs) 2024-06-26 19:37:00.000 187 [lb_av] Weight (lbs) 2024-06-24 10:17:00.000 185 [lb_av] Weight (lbs) 2024-06-17 12:38:03.000 173 [lb_av] Systolic Blood Pressure 2024-07-01 09:07:00.000 135 mm [Hg] Systolic Blood Pressure 2024-06-28 09:52:00.000 106 mm [Hg] Systolic Blood Pressure 2024-06-26 19:36:00.000 94 mm[ Hg] Systolic Blood Pressure 2024-06-24 10:17:00.000 126 mm [Hg] Systolic Blood Pressure 2024-06-16 18:16:00.000 126 mm [Hg] Diastolic Blood Pressure 2024-07-01 09:07:00.000 64 mm [Hg] Diastolic Blood Pressure 2024-06-28 09:52:00.000 58 mm [Hg] Diastolic Blood Pressure 2024-06-26 19:36:00.000 56 mm [Hg] Diastolic Blood Pressure 2024-06-24 10:17:00.000 62 mm [Hg] Diastolic Blood Pressure 2024-06-16 18:16:00.000 [...] CVA, RISK FACTORS, AND METHODS TO MANAGE CANVAS CUTTER MACHINE EFFECTS OF CVA. [code = SKILLED NURSE TO INSTRUCT PATIENT/CAREGIVER ON WARNING SIGNS OF CVA, RISK FACTORS, AND METHODS TO MANAGE ASSISTED EFFECTS OF CVA.] Future Scheduled Test SKILLED [...] MAINTAIN SITUATIONAL AWARENESS AND WILL NOTIFY CLINICAL ARMAMENT AIRCRAFT MECHANIC AND PHYSICIAN/PROVIDER WITH ANY CHANGE IN CONDITION. [code = SKILLED NURSE TO PERFORM ENVIRONMENTAL SAFETY RISK ASSESSMENT AND FALL RISK ASSESSMENT AND PROVIDE INSTRUCTION TO IMPLEMENT ENVIRONMENTAL SAFETY AND FALL PREVENTION STRATEGIES THROUGHOUT THE CERTIFICATION PERIOD. SKILLED NURSE WILL MAINTAIN SITUATIONAL AWARENESS AND WILL NOTIFY CLINICAL ARMAMENT AIRCRAFT MECHANIC AND PHYSICIAN/PROVIDER WITH ANY CHANGE IN CONDITION.] [...] CARE WILL BE ESTABLISHED THAT MEETS PATIENT'S MCC NEEDS AND INCLUDES PATIENT GOAL FOR HOME [...] Notes Progress Notes <paragraph>[Visit Date: 2024 by SONYA STEWART LPN]:</paragraph><paragraph>SNV 07/01/24 ABNORMAL VITALS: NA FALLS: NA OBSERVATION AND ASSESSMENT PROVIDED: PT ALERT AND ORIENTED X4 SITTING IN CHAIR UPON ARRIVAL. BREATHING LABORED ON ROOM AIR AT REST, BUT STATES IT IS BECAUSE HE HAD TAKEN A SHOWER PRIOR TO VISIT. LEFT ARM REMAINS SWOLLEN ALONG WITH BILATERAL LOWER LIMB EDEMA. ABDOMEN FIRM DISTENDED. VITAL SIGNS OBTAINED WNL OF PT BASELINE. SKIN INTACT. INR OBTAINED THIS VISIT READING 2.4. SALES TEAM LEADER NOTIIED OF RESULTS ALONG WITH PT SYMPTOMS OF WEIGHT GAIN +6 POUNDS IN ONE WEEK/SHORTNESS OF BREATH/EDEMA. PER MD PT TO GO TO EMERGENCY ROOM, BUT PT STATES HE DOES NOT WANT TO GO TODAY MAYBE TOMORROW. EDUCATION PROVIDED ON IMPORTANCE OF TREATMENT RELATED TO HEART DISEASE PROVIDED WELL STRESSING NEED TO BE SEEN BY EMERGENCY STAFF AT THIS TIME. PT STILL MAINTAINS THAT HE HAS TO GET THINGS IN ORDER BEFORE GOING TO THE HOSPTIAL. PT STATES HE WILL GO TOMORROW AFTER THE CLEANING LADY COMED IN AROUND 4PM. SALES TEAM LEADER STAFF ON PHONE WITH THIS NURSE AND PT AND IS AWARE OF PT REFUSAL. ONE FOR 1MG OF COUMADIN TODAY, AND PT TO REPORT TO HOSPITAL TOMORROW AGREED UPON. LENGTHLY EDUCATION PROVIDED TO PT REGRADING HEART FAILURE AND SIGNS AND SYMPTOMS THAT REQUIRE IMMEDIATE TREATMENT PROVIDED. LIST OF MEDICATION WRITEN OUT FOR PT TO TAKE WITH HIM WHEN HE GOES TO EMERGENCY ROOM WRITTEN OUT FOR PT. EDUCATED PT THAT IF SOB WORSENS TO CALL EMS AND TO MONITOR SALT INTAKE. EDUCATION: CONCERN OF CHF EXACERBATION NOTED DURING VISIT. SALES TEAM LEADER UPDATED WITH INR AND SYMPTOMS AGREES PT SHOULD BE SEEM. PT REFUSING TO GO TO ED FOR TREATMENT STATES HE WILL GO TOMORROW. MD AWARE. CONTINUED EDUCATION AND STRESS PROVIDED DURING VISIT ON IMPORTANCE OF TREATEMENT PT REQUIRING AT THIS TIME INTERVENTIONS NEEDED AT NEXT VISIT: PT STRONGLY ENCOURAGED TRANSPORT TO ED FOR INCREASE IN WT OF GREATER THAN 6 POUNDS IN ONE WEEK, SOB WITH MINIMAL EXERTION, INCREASING EDEMA AND ABDOMINAL DISTENTION COMMUNICATION WITH MD: INR RESULT CALLED INTO MD NEXT MD APPOINTMENT: CARDS APT ON PATIENT AND CAREGIVER INSTRUCTED TO CALL [facility] WITH ANY QUESTIONS OR CONCERNS AND/OR CHANGES IN CONDITION, PATIENT STATES UNDERSTANDING. SONYA STEWART LPN</paragraph> <paragraph>[Visit Date: 2024 by ISABELA WALTERS LPN]:</paragraph><paragraph>PRN VISIT TO CHECK INR SNV ABNORMAL VITALS: VITALS WITHIN PT ESTABLISHED PARAMETERS. BS NOT CHECKED. NO SS OF HYPO/HYPERGLYCEMIA. INR 3.9 FALLS:NO FALLS OBSERVATION/PHYSICAL ASSESSMENT FINDINGS: PT PLEASANT, ALERT X4 AND AGREEABLE TO VISIT. INR 3.9. CALLED INTO PCP BART. NEW ORDER HOLD SUNDAY AND SUNDAY, 1MG SUNDAY, RECHECK SUNDAY. [facility]ANNER FILLED FOR SUNDAY DOSE. LEFT ARM SWOLLEN PT STATES ITS MUCH BETTER THAN BEFORE . PT STATES HE DID GO TO URGENT CARE AFTER LAST SN VISIT. NSF. PT STATES THEY WRAPPED IT WITH AN HANNA WRAP AND THAT WAS ALL . NO SS OF DISTRESS DURING VISIT. APPETITE NORMAL. LS CLEAR. PULSE OX 97%RA. BOWELS AND BLADDER REGULAR. +1 EDEMA BLE. HANDS ON CARE PROVIDED: ASSESSMENT AND INR TEACHING PROVIDED: REVIEWED LEG ELEVATION PATIENT/CAREGIVER TEACH BACK: PT VERBALIZED UNDERSTANDING COMMUNICATION WITH PHYSICIAN/PROVIDER RELATED TO:PCP NEW ORDERS:HOLD WARFARIN AND SUNDAY, 1MG SUNDAY. RECHECK SUNDAY NEXT MD APPOINTMENT: 07/10 SALES TEAM LEADER, 08/19 PCP INSTRUCTED TO CALL [facility] WITH ANY QUESTIONS OR CHANGES IN CONDITION ISABELA WALTERS LPN</paragraph> <paragraph>[Visit Date: 2024 by MARTY VASQUEZ RN]:</paragraph><paragraph>PT AWAKE AND ALERT VS 94/56 HR 78 RR 20 T 98 PTS L,ARM CONT WITH EDEMA. PT WITH INCREASED SOBOE. INR STILL ELEVATED 4.2 REPORTED FINDINGS TO MD. PT REF ER EVAL I DO NOT WANT TO [facility] AGREED TO [facility] LATER TODAY I'LL GO FOR US OF LUE PER MD REQUEST. PT TO CONT HOLDING COUMADIN AND PCP REQUESTS RECHECK INR SUNDAY AND TO CALL [facility] WITH RESULTS.</paragraph> Encounters Start Date/Time End Date/Time Encounter Type Admission Type Attending [facility] Facility Care Department Encounter ID Discharge Date Discharge Status Discharge Condition Discharge Reason Percent Goals Met 2024-06-17 00:00:00 2024-08-15 00:00:00 Outpatient [facility]Y [facility] [id number] 51.11
--- OUTSIDE RECORDS SUMMARY | 2024-07-02 18:36 | XMS_ITS | Encounter Summary ---
Author Organization [facility] Address [address] [place] [id number] Care Team Providers Care Brush Maker Machine Name Role Phone Donald Schroeder MD Primary Care Provider [phone]- [phone] Encounter Details Date Type Department Care Team (Late st Contact Info) Description 05/07/2024 Lab Requisition [facility] - Main Lab [address] [facility] [place] [address] Donald Schroeder MD [address] [place] [id number] Anemia, unspecified Social History Tobacco Use Types Packs/Day Years Used Date Smoking Tobacco: Never Assessed Sex and Gender Information Value Date Recorded Sex Assigned at Not on file Gender Identity Not on file Sexual Orientation Not on file documented as of this encounter Plan of Treatment Not on file documented as of this encounter Visit Diagnoses Diagnosis Anemia, unspecified documented in this encounter Care Teams Brush Maker Machine Relationship Specialty Start Date End Date Donald Schroeder MD [address] [place] [id number] PCP - General Internal Medicine 05/01/24 documented as of this encounter
--- OUTSIDE RECORDS SUMMARY | 2024-07-02 18:36 | XMS_ITS | Clinical Summary ---
Author Organization [address] [facility] Address [address] [place] [address] Phone Care Team Providers Care Well Logging Operator Mud Analysis Name Role Phone Donald Schroeder MD Primary Care Provider [phone]- [phone] Encounters Date Type Department Care Team Description 05/07/2024 Lab Requisition [facility] Lab [address] [place] [phone] Donald Schroeder MD Anemia, unspecified 05/06/2024 Lab Requisition [facility] Lab [address] [place] [phone] Donald Schroeder MD skilled nursing (current) use of anticoagulants 05/01/2024 Lab Requisition [facility] Lab [address] [place] [phone] Donald Schroeder MD skilled nursing (current) use of anticoagulants; Type 2 diabetes mellitus without complications (CMS/HCC); Anemia, unspecified from Last 3 Months Social History Tobacco Use Types Packs/Day Years Used Date Smoking Tobacco: Never Assessed Sex and Gender Information Value Date Recorded Sex Assigned at Not on file Gender Identity Not on file Sexual Orientation Not on file Plan of Treatment Health Maintenance Due Date Last Done Comments Pneumococcal Vaccine: 65+ Ye ars (1 of 2 - PCV) 1946 Diabetes: Annual Foot Exam 1951 Diabetes: Annual Retina Eye Exam 1950 DTaP,Tdap,and Td Vaccines (1 - Tdap) 02/17/1960 Zoster Vaccines (1 of 2) 1991 RSV Immunization Patients 60 + Years Old (1 - 1-dose 75+ series) 02/17/2016 COVID-19 Vaccine (2023-2 5 season) 2024 Influenza Vaccine (#1) 2024 Cholesterol Screening (Lipid Panel) 05/01/2024 Depression Screening 05/01/2024 Diabetes: Annual Urine Albumin-Creatinine Ratio (uACR) 05/01/2024 Falls Risk Assessment 05/01/2024 Medicare Annual Wellness Visit 05/01/2024 Social Influencers of Health Screening 05/01/2024 Diabetes: Blood Sugar Contro l Test (HGBA1C) 10/29/2024 05/01/2024 Diabetes: Annual GFR (Glomer ular Filtration Rate) 05/01/2025 05/01/2024 Hypertension/CHF/CAD Annual BMP Blood Test 05/01/2025 05/01/2024 HIB Vaccines Aged Out No longer eligi ble based on patient's age to complete this topic HPV Vaccines Aged Out No longer eligi ble based on patient's age to complete this topic Hepatitis A Vaccines Aged Out No long er eligible based on patient's age to complete this topic Hepatitis B Vaccines Aged Out No long er eligible based on patient's age to complete this topic IPV Vaccines Aged Out No longer eligi ble based on patient's age to complete this topic MMR Vaccines Aged Out No longer eligi ble based on patient's age to complete this topic Meningococcal ACWY Vaccine Aged Out N o longer eligible based on patient's age to complete this topic RSV Immunization Patients Un mary 20 months Aged Out No longer eligible b ased on patient's age to complete this topic Varicella Vaccines Aged Out No longer eligible based on patient's age to complete this topic Procedures Procedure Name Priority Date/Time Associated Diagnosis Comments PROTHROMBIN TIME WITH INR Routine 05/06/2024 8:32 AM EST skilled nursing (current) use of anticoagulants PROTHROMBIN TIME WITH INR Routine 05/01/2024 7:34 AM EST skilled nursing (current) use of anticoagulants Type 2 diabetes mellitus without complications (CMS/HCC) Anemia, unspecified THYROID STIMULATING HORMONE Routine 05/01/2024 7:34 AM EST skilled nursing (current) use of anticoagulants Type 2 diabetes mellitus without complications (CMS/HCC) Anemia, unspecified HEMOGLOBIN A1C Routine 05/01/2024 7:34 AM EST skilled nursing (current) use of anticoagulants Type 2 diabetes mellitus without complications (CMS/HCC) Anemia, unspecified COMPREHENSIVE METABOLIC PANEL Routine 05/01/2024 7:34 AM EST oysterman (current) use of anticoagulants Type 2 diabetes mellitus without complications (CMS/HCC) Anemia, unspecified COMPLETE BLOOD COUNT Routine 05/01/2024 7:34 AM EST oysterman (current) use of anticoagulants Type 2 diabetes mellitus without complications (CMS/HCC) Anemia, unspecified from Last 3 Months Results * (ABNORMAL) Prothrombin time with INR (05/06/2024 8:32 AM EST) Only the most recent of2 resultswithin the time period is included. Protime 33.7(H) 10.6 - 13.9 sec LAB COAGULATION METHOD 05/06/2024 10:41 AM EST [facility] INR 2.7 LAB COAGULATION METHOD 05/06/2024 10:41 AM [facility] Blood Venous blood specimen / Unknown Venipuncture / Unknown 05/06/2024 8:32 AM EST 05/06/2024 9:24 AM EST Donald Schroeder MD LAB BLOOD ORDERABL ES [facility] [address] [place] [address], * (ABNORMAL) Complete blood count (05/01/2024 7:34 AM EST) Pathologist [facility] WBC 7.3 4.8 - 10.8 K/mcL LAB HEMETOLOGY METHOD 05/01/2024 10:57 AM EST [facility] RBC 3.80(L) 4.50 - 5.50 [...] HOSPITAL LAB Platelets 151 130 - 400 K/mcL LAB HEMETOLOGY METHOD 05/01/2024 10:57 AM [...] Donald Schroeder MD LAB BLOOD ORDERABL ES [facility] [address] [place] [address], * Thyroid stimulating hormone (05/01/2024 7:34 AM EST) TSH 1.35 0.40 - 4.00 mcIU/mL LAB CHEMISTRY METHOD 05/01/2024 11:30 AM EST [facility] Blood Venous blood specimen / Unknown Venipuncture / Unknown 05/01/2024 7:34 AM EST 05/01/2024 10:10 AM EST Donald Schroeder MD LAB BLOOD ORDERABL ES Performing Organization Address [facility]/ZIP Co de Phone Number [facility] [address] [place] [address], * Hemoglobin A1c (05/01/2024 7:34 AM EST) Pathologist [facility] Hemoglobin A1C 5.5 <6.5 % LAB CHEMISTRY METHOD 05/01/2024 2:25 PM EST [facility] Mean Bld Glu Estim. 111 mg/dL LAB CHEMISTRY METHOD 05/01/2024 2:25 PM EST [facility] Blood Venous blood specimen / Unknown Venipuncture / Unknown 05/01/2024 7:34 AM EST 05/01/2024 10:10 AM EST Donald Schroeder MD LAB BLOOD ORDERABL ES Performing Organization Address City/[facility]/ZIP Co de Phone Number [facility] [address] [place] [address], [place] [phone] * (ABNORMAL) Comprehensive metabolic panel (05/01/2024 7:34 AM EST) Pathologist [facility] Sodium 142 133 - 145 mmol/L LAB CHEMISTRY METHOD 05/01/2024 11:24 AM EST [facility] Potassium 3.8 3.5 - 5.5 mmol/L LAB CHEMISTRY METHOD 05/01/2024 11:24 AM EST [facility] Chloride 106 96 - 110 [...] g/dL LAB CHEMISTRY METHOD 05/01/2024 11:24 AM EST [facility] Total Bilirubin 2.9(H) 0.0 - 1.4 mg/dL LAB CHEMISTRY METHOD 05/01/2024 11:24 AM EST [facility] Blood Venous blood specimen / Unknown Venipuncture / Unknown 05/01/2024 7:34 AM EST 05/01/2024 10:10 AM EST Donald Schroeder MD LAB BLOOD ORDERABL ES [facility]) [facility] [address] [place] [address], from Last 3 Months Care Teams Well Logging Operator Mud Analysis Relationship Specialty Start Date End Date Donald Schroeder MD [address] [place] [address] PCP - General Internal Medicine 05/01/24
--- OUTSIDE RECORDS SUMMARY | 2024-07-02 18:37 | XMS_ITS | Clinical Summary ---
Author Organization Unknown Care Team Providers Care Administration Manager Name Role Phone CRISTOFER DUMONT, MITCHEL Unavailable Unavailable CHRISTINA ART, MARTY Unavailable Unavailable Payers Payer Name Policy Type Policy Number Effective Date Expira tion Date MEDICARE - NGS MA/RI - PDGM [id number] MEDICAID [facility] [id number] Problems Condition Name Condition Details Condition Category [...] 06-11 00:00: 00 ATHSCL HEART DISEASE OF [place] CORONARY ARTERY W/O ANG PCTRS Active 06-11 [...] CARDIAC DEFIBRILLATO R Active 06-11 00:00: 00 SKILLED NURSING (CURRENT) USE OF ORAL HYPOGLYCEMIC DRUGS Active [...] 02-25 00:00: 00 05-08 23:59 :00 No [id number] Per instruc tions THREE TIMES DAILY Per instructio ns THREE TIMES DAILY (route: oral) Med Classific ation: Cardiovas cular Therapy Agents Jardiance 10 mg tablet 02-25 00:00: 00 05-08 23:59 :00 No [id number] Per instruc tions DAILY Per instructio ns DAILY (route: oral) Med Classific ation: Endocrine Breo Ellipta 100 mcg-25 mcg/dose powder for inhalation 02-24 00:00: 00 05-08 23:59 :00 No [id number] Per instruc tions DAILY Per instructio ns DAILY (route: inhalation ) Med Classific ation: Respirato ry Therapy Agents metoprolol succinate ER 25 mg tablet,exte nded release 24 hr 02-22 00:00: 00 05-08 23:59 :00 No [id number] Per instruc tions DAILY Per instructio ns DAILY (route: oral) Med Classific ation: Cardiovas cular Therapy Agents warfarin 2 mg tablet 03-04 00:00: 00 05-08 23:59 :00 No [id number] 2 mg DAILY 2 mg DAILY (route: oral) Med Classific ation: Hematolog ical Agents amiodarone 200 mg tablet 03-04 00:00: 00 05-08 23:59 :00 No [id number] Unavailable 1 tablet DAILY 1 tablet DAILY (route: oral) Med Classific ation: Cardiovas cular Therapy Agents albuterol sulfate HFA 90 mcg/actuati on aerosol inhaler 03-04 00:00: 00 05-08 23:59 :00 No [id number] 2 puff EVERY 6 HOURS 2 puff EVERY 6 HOURS (route: inhalation ) Med Classific ation: Respirato ry Therapy Agents atorvastati n 10 mg tablet 03-04 00:00: 00 05-08 23:59 :00 No [id number] 1 tablet DAILY 1 tablet DAILY (route: oral) Med Classific ation: Cardiovas cular Therapy Agents Lasix 20 mg tablet 03-04 00:00: 00 04-10 23:59 :00 No [id number] 1 tablet 2 TIMES DAILY 1 tablet 2 TIMES DAILY (route: oral) Med Classific ation: Cardiovas cular Therapy Agents sildenafil 100 mg tablet 03-04 00:00: 00 05-08 23:59 :00 No [id number] 100 mg DAILY 100 mg DAILY (route: oral) Med Classific ation: Drugs to treat Erectile Dysfuncti on warfarin 1 mg tablet 03-04 00:00: 00 05-08 23:59 :00 No [id number] 1 mg DAILY 1 mg DAILY (route: oral) Med Classific ation: Hematolog ical Agents torsemide 20 mg tablet 2023-06 00:00: 00 05-08 23:59 :00 No [id number] 2 tablet DAILY 2 tablet DAILY (route: oral) Med Classific ation: Cardiovas cular Therapy Agents amiodarone 200 mg tablet 2023-06 00:00: 00 06-16 23:59 :00 No [id number] 1 tablet DAILY 1 tablet DAILY (route: oral) Med Classific ation: Cardiovas cular Therapy Agents atorvastati n 40 mg tablet 2023-06 00:00: 00 06-16 23:59 :00 No [id number] 1 tablet BEDTIME 1 tablet BEDTIME (route: oral) Med Classific ation: Cardiovas cular Therapy Agents Breo Ellipta 100 mcg-25 mcg/dose powder for inhalation 2023-06 00:00: 00 06-16 23:59 :00 No [id number] 1 inhalat ion DAILY 1 inhalation DAILY (route: inhalation ) Med Classific ation: Respirato ry Therapy Agents diphenhydra mine 25 mg tablet 2023-06 00:00: 00 06-16 23:59 :00 No [id number] 1 tablet 2 TIMES DAILY 1 tablet 2 TIMES DAILY (route: oral) Med Classific ation: Respirato ry Therapy Agents furosemide 40 mg tablet 2023-06 00:00: 00 06-16 23:59 :00 No [id number] 1 tablet DAILY 1 tablet DAILY (route: oral) Med Classific ation: Cardiovas cular Therapy Agents hydralazine 10 mg tablet 2023-06 00:00: 00 06-16 23:59 :00 No [id number] 1 tablet 2 TIMES DAILY 1 tablet 2 TIMES DAILY (route: oral) Med Classific ation: Cardiovas cular Therapy Agents Jardiance 10 mg tablet 2023-06 00:00: 00 06-16 23:59 :00 No [id number] 1 tablet DAILY 1 tablet DAILY (route: oral) Med Classific ation: Endocrine trazodone 100 mg tablet 2023-06 00:00: 00 05-24 23:59 :00 No [id number] 1 tablet BEDTIME 1 tablet BEDTIME (route: oral) Med Classific ation: Central Nervous System Agents Ventolin HFA 90 mcg/actuati on aerosol inhaler 2023-06 00:00: 00 06-16 23:59 :00 No [id number] 2 puff EVERY 6 HOURS 2 puff EVERY 6 HOURS (route: inhalation ) Med Classific ation: Respirato ry Therapy Agents warfarin 2 mg tablet 2023-06 00:00: 00 05-13 23:59 :00 No [id number] 1 tablet DAILY 1 tablet DAILY (route: oral) Med Classific ation: Hematolog ical Agents warfarin 2 mg tablet 2023-06 00:00: 00 05-19 23:59 :00 No [id number] Per instruc tions DIRECTED Per instructio ns DIRECTED (route: oral) Med Classific ation: Hematolog ical Agents warfarin 2 mg tablet 2023-06 00:00: 00 05-26 23:59 :00 No [id number] Per instruc tions DIRECTED Per instructio ns DIRECTED (route: oral) Med Classific ation: Hematolog ical Agents warfarin 1 mg tablet 2023-06 00:00: 00 06-03 23:59 :00 No [id number] 1 tablet DAILY 1 tablet DAILY (route: oral) Med Classific ation: Hematolog ical Agents warfarin 1 mg tablet 2023-06 00:00: 00 06-10 23:59 :00 No [id number] 1 mg DAILY 1 mg DAILY (route: oral) Med Classific ation: Hematolog ical Agents warfarin 1 mg tablet 2023-06 00:00: 00 06-16 23:59 :00 No [id number] 1 mg DAILY 1 mg DAILY (route: oral) Med Classific ation: Hematolog ical Agents albuterol sulfate HFA 90 mcg/actuati on aerosol inhaler 06-17 00:00: 00 Yes [id number] 2 puff NEEDED 2 puff NEEDED (route: inhalation ) Med Classific ation: Respirato ry Therapy Agents amiodarone 200 mg tablet 06-17 00:00: 00 Yes [id number] 1 tablet DAILY 1 tablet DAILY (route: oral) Med Classific ation: Cardiovas cular Therapy Agents hydralazine 10 mg tablet 06-17 00:00: 00 Yes [id number] 1 tablet 2 TIMES DAILY 1 tablet 2 TIMES DAILY (route: oral) Med Classific ation: Cardiovas cular Therapy Agents Jardiance 10 mg tablet 06-17 00:00: 00 Yes [id number] 1 tablet DAILY 1 tablet DAILY (route: oral) Med Classific ation: Endocrine torsemide 20 mg tablet 06-17 00:00: 00 Yes [id number] 1 tablet DAILY 1 tablet DAILY (route: oral) Med Classific ation: Cardiovas cular Therapy Agents trazodone 100 mg tablet 06-17 00:00: 00 Yes [id number] 1 tablet NEEDED 1 tablet NEEDED (route: oral) Med Classific ation: Central Nervous System Agents warfarin 1 mg tablet 06-17 00:00: 00 06-24 23:59 :00 No [id number] 1 tablet DAILY 1 tablet DAILY (route: oral) Med Classific ation: Hematolog ical Agents warfarin 1 mg tablet 06-30 00:00: 00 06-30 23:59 :00 No [id number] 1 tablet DAILY 1 tablet DAILY (route: [...] CVA, RISK FACTORS, AND METHODS TO MANAGE INFUSION NURSE EFFECTS OF CVA. [code = SKILLED NURSE TO INSTRUCT PATIENT/CAREGIVER ON WARNING SIGNS OF CVA, RISK FACTORS, AND METHODS TO MANAGE SKILLED NURSING EFFECTS OF CVA.] Future Scheduled Test SKILLED [...] MAINTAIN SITUATIONAL AWARENESS AND WILL NOTIFY CLINICAL SURGICAL DENTAL ASSISTANT AND PHYSICIAN/PROVIDER WITH ANY CHANGE IN CONDITION. [code = SKILLED NURSE TO PERFORM ENVIRONMENTAL SAFETY RISK ASSESSMENT AND FALL RISK ASSESSMENT AND PROVIDE INSTRUCTION TO IMPLEMENT ENVIRONMENTAL SAFETY AND FALL PREVENTION STRATEGIES THROUGHOUT THE CERTIFICATION PERIOD. SKILLED NURSE WILL MAINTAIN SITUATIONAL AWARENESS AND WILL NOTIFY CLINICAL SURGICAL DENTAL ASSISTANT AND PHYSICIAN/PROVIDER WITH ANY CHANGE IN CONDITION.] [...] CARE WILL BE ESTABLISHED THAT MEETS PATIENT'S PRISON NEEDS AND INCLUDES PATIENT GOAL FOR HOME [...] INTACT. INR OBTAINED THIS VISIT READING 2.4. [facility]HO[facility] BORER AND TOPPER NOTIIED OF RESULTS ALONG WITH PT SYMPTOMS [...] THE CLEANING LADY COMED IN AROUND 4PM. [facility]HOLE BORER AND TOPPER STAFF ON PHONE WITH THIS NURSE AND [...] CONCERN OF CHF EXACERBATION NOTED DURING VISIT. [facility]HOLE BORER AND TOPPER UPDATED WITH INR AND SYMPTOMS AGREES PT [...] SUNDAY. RECHECK SUNDAY NEXT MD APPOINTMENT: 07/10 [facility]ER [facility] TOPPER, 08/19 PCP INSTRUCTED TO CALL TIMO HOSKINS WITH ANY QUESTIONS OR CHANGES IN CONDITION ISABELA WALTERS LPN</paragraph> <paragraph>[Visit Date: 2024 by MARTY VASQUEZ RN]:</paragraph><paragraph>PT AWAKE AND ALERT VS 94/56 HR 78 RR 20 T 98 PTS L,ARM CONT WITH EDEMA. PT WITH INCREASED SOBOE. INR STILL ELEVATED 4.2 REPORTED FINDINGS TO MD. PT REF ER EVAL I DO NOT WANT TO PENDING SALE TO [facility] AGREED TO [facility] LATER TODAY I'LL GO FOR US OF LUE PER MD REQUEST. PT TO CONT HOLDING COUMADIN AND PCP REQUESTS RECHECK INR SUNDAY AND TO CALL [facility] TRIMBLE WITH RESULTS.</paragraph> Encounters Start Date/Time End Date/Time Encounter Type Admission Type Attending [facility] Care Department Encounter ID Discharge Date Discharge Status Discharge Condition Discharge Reason Percent Goals Met 2024-06-17 00:00:00 2024-08-15 00:00:00 Outpatient MARTY ANDREW [facility] [id number] 51.11
[2024-07-02 19:02] LABS: MANUAL DIFF FLAG NO
[2024-07-02 19:11] LABS: Basophils Percent Auto 0.4 % (0-2); Eosinophils Percent Auto 0.2 % (0-4); Hematocrit 35.4 % (42.0-52.0); Hemoglobin 11.8 g/dl (14.0-18.0); Imm Gran Abs Auto 0.02 X10*3/uL (0.00-0.03); Imm Gran Pct Auto 0.4 % (0.0-0.4); Lymphocytes Absolute Auto 0.4 X10*3/uL (1.2-4.9); Lymphocytes Percent Auto 7.3 % (20-40); Mean Corpuscular HGB Conc 33.3 g/dl (31.0-36.0); Mean Corpuscular Hemoglobin 30.6 pg (27.0-33.0); Mean Corpuscular Volume 91.9 fL (80.0-98.0); Mean Platelet Volume 12.2 fL (9.4-12.4); Monocytes Absolute Auto 0.6 X10*3/uL (0.1-1.2); Monocytes Percent Auto 11.2 % (2-11); Neutrophils Absolute Auto 4.5 x10*3/uL (2.0-8.3); Neutrophils Percent Auto 80.5 % (45-73); Platelet Count 169 X10*3/uL (160-400); Red Blood Count 3.85 X10*6/uL (4.60-5.80); Red Cell Distribution Width 17.7 % (11.0-16.0); White Blood Count 5.6 X10*3/uL (4.8-10.8)
[2024-07-02 19:12] LABS: INTERNATIONAL NORM RATIO 2.8 (0.9-1.1); Prothrombin Time 32.5 SEC (10.9-12.4)
[2024-07-02 19:15] LABS: Partial Thromboplastin Time 42.9 SEC (26.0-36.8)
[2024-07-02] MEDS: Norepinephrine Bitartrate/D5W 8 MG/250 ML PLAST..BAG 8.37 MG IVCONT (19:21)
--- NOTE | 2024-07-02 19:21 | PC.NURSE ---
Patients initial weight was entered based off of a weight from home a few days ago. patient transferred onto a weighted bed, was weighed and new weight entered into medical recored. pharmacy called and made aware of the new weight for levophed order
[2024-07-02 19:25] LABS: B Type Natriuretic Peptide 3794 pg/mL (<100); Troponin-I High Sensitivity 14.9 ng/L (<3.5-35.0)
[2024-07-02 20:01] LABS: Influenza A PCR NEGATIVE (Negative); Influenza B PCR NEGATIVE (Negative); Resp Syncy Virus RNA Qual PCR NEGATIVE (Negative); SARS COV2 PCR INHOUSE NEGATIVE (Negative)
[2024-07-02 20:08] LABS: Alanine Aminotransferase 26 U/L (0-40); Albumin Level 3.3 g/dL (3.5-5.0); Alkaline Phosphatase 361 U/L (39-117); Anion Gap 13 (12-20); Aspartate Amino Transferase 39 U/L (5-37); Bilirubin Total 1.4 mg/dL (0.0-1.0); Blood Urea Nitrogen 21 mg/dL (9-16); Calcium 9.2 mg/dL (8.4-10.2); Carbon Dioxide 24 mmol/L (22-29); Chloride 106 mmol/L (96-108); Creatinine Clr Calc Pharmacy 23.5; Estimated Glomerular Filt Rate 25; Glucose Random 95 mg/dL (60-115); Lipase 36 U/L (8-78); Potassium 4.8 mmol/L (3.3-5.1); Sodium 138 mmol/L (135-145)
--- NOTE | 2024-07-02 20:24 | ECG_ITS ---
Test Reason : SOB Blood Pressure : */* mmHG Vent. Rate : 80 BPM Atrial Rate : * BPM P-R Int : * ms QRS Dur : 104 ms QT Int : 374 ms P-R-T Axes : * -85 -1 degrees QTcB Int : 431 ms Atrial fibrillation with premature ventricular or aberrantly conducted complexes Left axis deviation Low voltage QRS Inferior infarct (cited on or before 02-Jul-2020) Possible Anterolateral infarct (cited on or before 03-Jul-2020) Abnormal ECG When compared with ECG of 20-Jun-2024 14:21, Atrial fibrillation has replaced Possible Sinus bradycardia Referred By: Pj Maxwell Electronically Signed By: MINA LUND MD
--- NOTE | 2024-07-02 20:46 | PC.NURSE ---
Patient awake and alert. skin pwd, resp even, labored at 22. speaking in full, clear sentences. pt c/o feeling SOB, exp wheeze noted to right lower lobe. physician aware, O2 2lpm applied via NC for comfort per order. afib via tele.
--- NOTE | 2024-07-02 21:25 | P.HPCC_ITS ---
History of Present Illness Date of Service: 07/02/24 Attending physician on admission: Jose Antonio Kwon Chief Complaint: Cardiorenal syndrome/Anasarca ?84-year-old male with underlying history of atrial fibrillation on Coumadin, ACS, nonischemic cardiomyopathy, COPD, AICD, asthma, CVA, hypertension, hyperlipidemia among multiple others who was recently discharged from this hospital on 06/21/2024 after having received 3 automatic shocks with his defibrillator due to VFib, the time the patient was found to have low potassium due to over diuresis.? Potassium was replaced, patient was discharged home. ?His last echo showed an ejection fraction of 25-30% with grade 3 diastolic dysfunction, severe right ventricular dilation with decreased systolic function, severe dilation of both atriums, mild mitral and tricuspid regurgitation and moderately elevated right ventricular systolic pressure. ?Six days ago he was seen as an outpatient due to left upper extremity edema, diagnosed with phlebitis. Today the patient presented to the emergency room via EMS with complaints of increased lower extremity edema and having gained 6-7 lb in a week.? Visiting nurses report the patient has been eating a lot of popcorn due to low appetite.? She has noted he gained weight and has had increased shortness of breath at rest and dyspnea on exertion, limiting his mobility.? Patient denies chest pain, fever or chills, admits to nonproductive cough. On arrival to the ER, the patient was normotensive but subsequently became hypotensive, his O2 sat has been above 95 on room air, workup revealed no white count, H and H of 11.8 and 35.4 respectively, platelets 169. No electrolyte abnormalities, BUN 21, creatinine 2.49 (previous baseline 1.7), total bilirubin 1.4, HCT 39, alk-phos 361, troponin 14.9, brain natriuretic peptide 3794.? Albumin 3.3.? Influenza, RSV and COVID panels negative . ?Given his hypotension say on, the patient was placed on Levophed, but did not started diuretics, case was consulted with the crew leader Dr. Sandoval who suggested the patient would be admitted to the ICU for further diuresis and blood pressure support with Levophed. Review of Systems 2 Review of Systems: As above, otherwise the patient denies cold intolerance, migraine headaches, head trauma, no eyes, ears or nose problems, no problems swallowing or with phonation, no thyroid disease, denies any nausea, vomiting, diarrhea, abdominal surgeries, melena, hematochezia, hematemesis, hematuria, kidney stones, liver problems, immunocompromise state of any kind, no history of DVT or PE, all other review of systems were reviewed and they were all negative. [facility] Past Medical History Medical History Chronic a-fib Atherosclerotic cardiovascular disease Fatigue High triglycerides Erectile dysfunction Typical atrial flutter Nonischemic cardiomyopathy Hearing loss COPD (chronic obstructive pulmonary disease) Atrial fibrillation Elevated blood sugar Asthma Hyperlipidemia HTN (hypertension) Stroke Family History Family History Father Unknown family medical history Mother Unknown family medical history Surgical History Surgical History Presence of single chamber implantable cardioverter-defibrillator (ICD) History of appendectomy History of tonsillectomy Social History Social History Household Members: None Housing: House Are you a primary day care assistant to a significant other at home: No Do you presently have visiting nurse or other home services: Yes Alcohol intake: current Alcohol intake frequency: holidays/special occasions only Alcohol type: wine Patient Tobacco Use Status: Current someday Tobacco user Tobacco use type: Cigarette Cigarettes Per Day: 1 Years Smoked: 70 +/- Smoked in Last 30 Days: Yes e-Cigarette/Vaping Use: Never Used Patient Interested in Nicotine Replacement: No Patient Given Instructions on How to Stop Smoking: No Second Hand Smoke Exposure: No Use of substances other than those prescribed or required for medical reasons: No Have you been hit, kicked, punched, or otherwise hurt by someone within the past year? If so, by whom?: No Do you feel safe in your current relationship?: Yes Is there a partner from a previous relationship who is making you feel unsafe now?: No Are you made to feel afraid or neglected: No Advance Directives: Yes Advance Directives on File: Yes Advance Directives Date on File: 08/18/20 Do you have a plan to hurt others: No Plan Recently lost weight without trying: No How much weight loss: Not applicable Eating poorly because of decreased appetite: No Nutrition screen score: 0 Nutrition Risks: No Nutritional Risk Poor oral hygiene: No service: No Current occupational status: retired Cognitive needs: No Hearing needs: No Vision needs: No Meds Allergies Allergy/AdvReac Type Severity Reaction Status Date / Time lisinopril Allergy Intermediate Rash Verified 07/02/24 18:11 Active Medications: Current Medications Amiodarone HCl (Amiodarone Hcl 200 Mg Tablet) 200 mg PO DAILY [facility] Atorvastatin Calcium (Atorvastatin Calcium 40 Mg Tablet) 40 mg PO BEDTIME [facility] Glucose (Glucose Gel 15 Gm Gel..Gram.) 15 gm PO Q15M PRN; Protocol PRN Reason: per Hypoglycemia Standing Ord. Norepinephrine Bitartrate (Levophed) 8 mg in 250 mls @ 0 mls/hr IVCONT .Q0M JACKSON; Protocol Last Titration: 07/02/24 21:03 Dose: 0.09 mcg/kg/min, 15.07 mls/hr Bumetanide 25 mg/ IV (Miscellaneous Supplies) 100 mls @ 2 mls/hr IVCONT .Q24H [facility] Dextrose (D10) 250 mls @ 750 mls/hr IV Q15M PRN; Protocol PRN Reason: per Hypoglycemia Standing Ord. Insulin Human Lispro (Insulin Lispro 100 Unit/Ml 3 Ml Vial) 0 unit SUBCUT Q6H [facility]; Protocol Warfarin Sodium (Warfarin Sodium 1 Mg Tablet) 1 mg PO DAILY@1800 [facility] Home Medications ?Medication ?Instructions ?Recorded ?Confirmed ?Last Taken ?Type trazodone 100 mg tablet 100 mg PO BEDTIME PRN Sleep 02/22/24 07/02/24 Unknown History diphenhydramine HCl 25 mg tablet 25 mg PO BID PRN Itching 04/26/24 07/02/24 Unknown History (Benadryl Allergy) atorvastatin 40 mg tablet 40 mg PO BEDTIME 06/20/24 07/02/24 07/01/24 History fluticasone furoate 100 1 inh inhalation DAILY 06/20/24 07/02/24 07/02/24 History mcg-vilanterol 25 mcg/dose inhalation powder (Breo Ellipta) warfarin 1 mg tablet 1 mg PO DAILY@1800 06/20/24 07/02/24 07/02/24 History furosemide 20 mg tablet 40 mg PO DAILY 07/02/24 07/02/24 07/02/24 History Physical Exam 2 Vital Signs: Vital Signs: Last Vital Signs Temp 98.3 F 07/02/24 18:14 Pulse 79 07/02/24 21:04 Resp 16 07/02/24 21:04 BP 92/60 07/02/24 21:04 Pulse Ox 98 07/02/24 21:04 O2 Del Method Room Air 07/02/24 21:04 O2 Flow Rate 2 07/02/24 20:47 BMI result Body Mass Index 31.8 General:? Alert oriented x3 no acute distress.? Speaking full sentences.? Speech is well articulated, thought process is coherent.? Following all commands. Skin:? Multiple ecchymotic spots of the upper extremities, Left upper extremity edema mostly focused in the forearm area.? There is minimal erythema, it is not hot to touch.? Otherwise the skin is intact, no lesions, edema, erythema, clubbing or cyanosis.? No ulcers. HEENT:? Head is normocephalic, atraumatic, pupils equal round reactive to light . Extraocular movements appear intact.? Buccal mucosa is moist, Neck is supple without lymphadenopathy. Cardiac:? Left upper chest pacer like device under the skin. Clear S1-S2, there is no murmurs, S3 gallop best at the left lower sternal border. Pulmonary:? Diminished lung sounds bilaterally with fine crackles at both bases right more than left.? No rhonchi, there is however bilateral expiratory wheezing. ? Abdomen:? Protuberant, positive bowel sounds in all 4 quadrants.? Soft, distended, nontender, no rebound or guarding.? Musculoskeletal:? Moving all 4 extremities upon request a major joints, there is no crepitus or tenderness.? The strength is 5/5 bilaterally and throughout all 4 extremities. ?Left upper extremity edema 1+ pitting, There is bilateral lower extremity edema 2+ pitting of the proximal thighs and into the abdomen.? There is also 2+ presacral edema. ?no calf tenderness , no leg asymmetry.? Gait not assessed at this point. Neurologic:? As above, No focal deficits noted. Vascular:? 2+ pulses upper and lower extremities distally, including left upper extremity. Results Labs 07/03/24 04:26 07/03/24 04:26 Labs: Laboratory Results - last 24 hr 07/02/24 07/02/24 07/02/24 18:59 19:18 19:48 MCV 91.9 MCH 30.6 MCHC 33.3 RDW 17.7 H Plt Count 169 D MPV 12.2 Immature Gran % (Auto) 0.4 Neut % (Auto) 80.5 H Lymph % (Auto) 7.3 L [place] % (Auto) 11.2 H Eos % (Auto) 0.2 Baso % (Auto) 0.4 Lymph # (Auto) 0.4 L [place] # (Auto) 0.6 Eos # (Auto) 0.0 Baso # (Auto) 0.0 Abs Immat Gran (auto) 0.02 Absolute Neuts (auto) 4.5 Absolute Nucleated RBC 0.000 Nucleated RBC % (auto) 0.0 PT 32.5 H INR 2.8 H APTT 42.9 H Anion Gap 13 Estim Creat Clear Calc 23.5 Estimated GFR 25 Random Glucose 95 Calcium 9.2 D Total Bilirubin 1.4 H AST 39 H ALT 26 Alkaline Phosphatase 361 H Troponin I High Sens 14.9 D B-Natriuretic Peptide 3794 H Total Protein 7.0 Albumin 3.3 L Lipase 36 Influenza Type A (PCR) NEGATIVE Influenza Type B (PCR) NEGATIVE RSV RNA Qual (PCR) NEGATIVE SARS-CoV-2 RNA (RT-PCR) NEGATIVE Assessment and Plan (1) Cardiorenal syndrome: Status: Acute (2) Anasarca: Status: Acute Plan 1. Cardiorenal syndrome 2. 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 Acute on chronic kidney disease stage 3 baseline creatinine 1.7 (anuric) 4. Mild acute COPD exacerbation 5. Anasarca likely multifactorial between cardiorenal syndrome and low albumin levels. 6. History of atrial fibrillation currently rate control (has AICD, on amiodarone and on Coumadin) 7. Stable anemia of chronic disease 8. History of type 2 diabetes 9. Left upper extremity phlebitis (unlikely DVT as he is on Coumadin) 10. Hypoalbuminemia PLAN OF CARE: Admit to the ICU, monitor vital signs, I's and O's, Carrasco catheter.? Bumex drip, while supporting his blood pressure with Levophed; recheck laboratories in the morning.? Patient had an Echo less than 2 months ago, see above results.? Cardiology and nephrology input appreciated.? Albumin replacement. ?We will resume home medications including amiodarone, atorvastatin, Coumadin and will place him on insulin sliding scale. Renal consult. ?Close electrolyte monitoring and replacement. ?Left upper extremity elevation, [place] wrappings and warm compresses. ?I do not think the patient needs an ultrasound at this point, my suspicion for DVT of the upper extremity and lower extremities is low. GI PROPHYLAXIS: oral PPI DVT PROPHYLAXIS: On Coumadin Critical care time used for critical evaluation of this patient, diagnosis, treatment and coordination of care, review her records and documentation TOTAL CRITICAL CARE TIME? 90 MIN . discussion and coordination with consultants, completely separate from any procedures performed. Patient's care was discussed in detail with Dr. Temple who is aware of all the above as well as the plan of care for this patient. Total time managing care of this patient today: 90 minutes.
--- NOTE | 2024-07-02 21:41 | PHA.MEDREC ---
Addendum entered by William Brooke RPh 07/02/24 21:58: Patient confirmed he takes furosemide 40 mg daily. Med rec was reviewed by [facility]. Original Note: Pharmacy Consult ? Medication Reconciliation Pharmacy has completed the medication reconciliation. Spoke to patient to confirm med list. patient states he was just discharge from [facility] on 06/21/24 and there are no changers to his medications. patient confirm Warfarin 1 mg daily.
--- NOTE | 2024-07-02 21:42 | PC.NURSE ---
awake and alert. skin pwd, resp even and non labored. patient states breathing feels better at this time. remains in afib via tele. levophed titrated according to protocol. pt awaiting admit to ICU
[2024-07-02] MEDS: Bumetanide 25 MG in Container,Empty 0 ML IVCONT (22:25)
[2024-07-02] MEDS: Albumin Human 25 % 100 ML IV (22:59)
[2024-07-02] MEDS: traZODone HCL 50 MG TABLET PO (23:18)
[2024-07-02 23:22] LABS: Glucose, Whole Blood 117 mg/dL (60-115)
[2024-07-02 23:33] LABS: Appearance Urine Cloudy; Color Urine Yellow; Glucose Urine UA Negative (Negative); Leukocyte Esterase Urine Negative (Negative); Nitrite Urine Negative (Negative); Specific Gravity - Urine 1.015 (1.005-1.025); UMIC TRIGGER UACC YES; Urine Blood Small (1+) (Negative); Urine Ketones Negative (Negative); Urine Protein 30 (1+) mg/dL (Neg-Trace)
[2024-07-02 23:42] LABS: Bacteria Urine None Seen (None Seen); Calcium Oxalate Crystals Urine Present; Epith (RTE) Cast Present; Granular Casts Urine Present; WBC Urine 0-5 /HPF (0-5)
[2024-07-03] VITALS (37 sets, daily range): BP systolic 81–124; BP diastolic 43–78; PULSE 79–119; RESP 15–35; TEMP 36.4–37.1; O2SAT 92–99; BMI 30.8
[2024-07-03] MEDS: Albumin Human 25 % 100 ML IV (00:06)
[2024-07-03] MEDS: Norepinephrine Bitartrate/D5W 8 MG/250 ML PLAST..BAG 45.21 MG IVCONT (03:29)
[2024-07-03 04:33] LABS: Basophils Percent Auto 0.3 % (0-2); Hematocrit 34.1 % (42.0-52.0); Imm Gran Abs Auto 0.02 X10*3/uL (0.00-0.03); Imm Gran Pct Auto 0.3 % (0.0-0.4); Lymphocytes Absolute Auto 0.5 X10*3/uL (1.2-4.9); Lymphocytes Percent Auto 6.9 % (20-40); MANUAL DIFF FLAG NO; Mean Corpuscular HGB Conc 32.3 g/dl (31.0-36.0); Mean Corpuscular Hemoglobin 29.2 pg (27.0-33.0); Mean Corpuscular Volume 90.5 fL (80.0-98.0); Mean Platelet Volume 11.8 fL (9.4-12.4); Monocytes Absolute Auto 0.8 X10*3/uL (0.1-1.2); Neutrophils Absolute Auto 6.1 x10*3/uL (2.0-8.3); Neutrophils Percent Auto 81.5 % (45-73); Platelet Count 167 X10*3/uL (160-400); Red Blood Count 3.77 X10*6/uL (4.60-5.80); Red Cell Distribution Width 17.6 % (11.0-16.0); White Blood Count 7.5 X10*3/uL (4.8-10.8)
[2024-07-03 04:38] LABS: INTERNATIONAL NORM RATIO 3.3 (0.9-1.1); Prothrombin Time 38.3 SEC (10.9-12.4)
[2024-07-03 04:53] LABS: Alanine Aminotransferase 16 U/L (0-40); Albumin Level 3.8 g/dL (3.5-5.0); Alkaline Phosphatase 313 U/L (39-117); Anion Gap 19 (12-20); Aspartate Amino Transferase 33 U/L (5-37); Bilirubin Total 1.9 mg/dL (0.0-1.0); Blood Urea Nitrogen 21 mg/dL (9-16); Calcium 9.1 mg/dL (8.4-10.2); Carbon Dioxide 19 mmol/L (22-29); Chloride 106 mmol/L (96-108); Creatinine Clr Calc Pharmacy 23.3; Estimated Glomerular Filt Rate 25; Glucose Random 134 mg/dL (60-115); Magnesium 2.4 mg/dL (1.6-2.6); Phosphorus 3.8 mg/dL (2.7-4.5); Potassium 4.9 mmol/L (3.3-5.1); Sodium 139 mmol/L (135-145); Total Protein 7.1 g/dL (6.5-8.0)
--- NOTE | 2024-07-03 04:56 | W.PM.CCHP ---
Procedures Date of Service Date of Service: 07/03/24 <LAZ Larsen - Last Filed: 07/03/24 05:11> 07/03/24 <Jose Antonio Kwon MD - Last Filed: 07/03/24 14:40> Central Line Placement Right IJ: Central Line Comments: Details of the procedure, all risks were discussed in detail with the patient including bleeding, infection and pneumothorax. Patient verbally agreed in the presence of his nurse Jesika <LAZ Larsen - Last Filed: 07/03/24 05:11> Consent for Procedure: Elective - informed consent obtained <LAZ Larsen - Last Filed: 07/03/24 05:11> Sterile Technique Used: Yes <LAZ Larsen - Last Filed: 07/03/24 05:11> Patient placed on monitor/pulse ox: Yes <LAZ Larsen - Last Filed: 07/03/24 05:11> MD prep: mask, gown, gloves and other <LAZ Larsen - Last Filed: 07/03/24 05:11> Central line prep: Chlorhexidine scrub (x2) <LAZ Larsen - Last Filed: 07/03/24 05:11> Local anesthesia used: lidocaine 2% <LAZ Larsen - Last Filed: 07/03/24 05:11> Amount of anesthesia used (ml): 5 <LAZ Larsen - Last Filed: 07/03/24 05:11> Ultrasound used for placement: Yes <LAZ Larsen - Last Filed: 07/03/24 05:11> Central line lumen inserted: triple (16 cm) <LAZ Larsen - Last Filed: 07/03/24 05:11> Post procedure: sutured in place, good blood return, all ports aspirated, flushed, capped and sterile dressing applied <LAZ Larsen Last Filed: 07/03/24 05:11> Post procedure x-ray: tip of catheter in good position and no pneumothorax seen <LAZ Larsen Last Filed: 07/03/24 05:11> Patient tolerated procedure: well and no complications <LAZ Larsen - Last Filed: 07/03/24 05:11> Complications: none <LAZ Larsen - Last Filed: 07/03/24 05:11>
[2024-07-03] MEDS: Lidocaine HCl 2 % MPF 5 ML VIAL SUBCUT (05:31)
[2024-07-03] MEDS: Omeprazole 40 MG CAPSULE.DR PO (05:33)
--- NOTE | 2024-07-03 07:00 | CA_ITS ---
Transthoracic Echocardiogram Patient (Last, First, Middle): Eder Farah, Gender: Male Date of : 1940 Age: 84 Procedure Date: 07/03/2024 Procedure Type: Transthoracic Echocardiogram Location: ICU Height: 167.64 cm Weight: 86.18 kg BSA: 1.96 m2 Heart Rate: 114 bpm BP: 107 / 76 mmHg Paleontology Teacher: SB Referring MD: Shaq NESBITT Bottom Brusher: Brady Newton MD Symptoms: cardiorenal syndrome Study Quality: Adequate ECG Rhythm: Undetermined Conclusions: - 1. Mildly dilated left ventricle with severe LV systolic dysfunction with LVEF of 20-25% with grade 3 diastolic dysfunction 2. Moderately dilated right ventricular with severely reduced systolic function 3. Severe biatrial enlargement 4. Mild aortic stenosis and regurgitation 5. [id number] mitral regurgitation 6. Moderate to severe tricuspid regurgitation 7. Dxip-xx-zhinosym elevation right ventricular systolic pressure with significantly elevated right atrial pressures 8. Trivial pericardial effusion Findings Left Ventricle Mildly increased left ventricular cavity size. There is normal left ventricular wall thickness. The visually estimated ejection fraction is between 20-25%. There is severe global hypokinesis. Spectral Doppler is indicative of a restrictive filling pattern. E/E prime ratio is >15, consistent with elevated filling pressures. Evidence suggests grade III (severe) diastolic dysfunction. Right Ventricle Moderately increased right ventricular cavity size. There is severely decreased right ventricular systolic function. There is an ICD wire seen in the right ventricle. Atria The left atrium is severely dilated. There is no evidence of interatrial shunt. The right atrium is severely dilated. Aortic Valve There is moderate calcification of the aortic valve. There is mild thickening of the aortic valve. There is mild aortic valve stenosis. There is mild aortic valve regurgitation. Mitral Valve There is mild anterior and posterior mitral leaflet thickening. There is mild mitral annular calcification. There is mild to moderate mitral valve regurgitation. There is no mitral valve stenosis. Pulmonic Valve The pulmonic valve was not well visualized. Tricuspid Valve Normal tricuspid valve structure. There is moderate to severe tricuspid valve regurgitation. Significantly elevated right atrial pressure. Mild to moderate pulmonary hypertension is present. Great Vessels All visible segments of the aorta are normal in size. The pulmonary artery was not well visualized. There is no dilatation of the ascending aorta measuring 3.10 cm. Venous The inferior vena cava is severely dilated and does not collapse with inspiration. Pericardium/Pleural There is a trivial loculated pericardial effusion overlying the left ventricle. Prior Study Comparison Changes noted compared to prior study dated: 04/28/2024. Tricuspid regurgitation appears moderate to severe. LV systolic function is further marginally reduced. RV systolic function is now severely reduced Measurements 2D Linear Measurements IVSd: 0.80 0.6-0.9/0.6-1.0 cm LVIDd: 5.58 3.9-5.3/4.2-5.9 cm LVIDd Index: 2.85 2.4-3.2/2.2-3.1 cm/m2 LVIDs: 4.73 2.0-3.6 cm LVPWd: 0.95 0.7-1.1 cm LA Diam: 5.30 2.7-3.8/3.0-4.0 cm LAIDs Index: 2.70 1.5-2.3 cm/m2 LV Mass: 229.06 67-162/88-224 g LV Mass Index: 116.87 43-95/49-115 g/m2 LVOT Diam: 2.10 3.0+(-)1.3 cm 2D Systolic Function EF 4C: 13.90 >55% EF 2C: 27.80 >55% EF BiP: 24.50 >55% Mitral Valve E'Lateral: 11.70 E'Medial: 4.22 MR VTI: 1.17 Aortic Valve AoV Pk Hieu: 1.84 AoV Mn Hieu: 1.38 AoV VTI: 0.28 AoV Pk Grad: 14.00 Aov Mn Grad: 9.00 QUAN Cont.VTI: 1.69 LVOT LVOT Pk Hieu: 0.91 LVOT Mn Hieu: 0.62 LVOT VTI: 0.13 LVOT Pk Grad: 3.00 LVOT Mn Grad: 2.00 LVOT Diam: 2.10 LVOT Area: 3.46 Diastolic Function E'Medial: 4.22 E' Laterial: 11.70 Right Ventricle TAPSE (mm): 9.20 TVS' Hieu: 7.29 Tricuspid Valve TR Pk Hieu: 2.82 TR Pk Grad: 32.00 RA Press: 15.00 RVSP: 47.00 Great Vessels Aorta Sinus of Valsalva: 3.00 2.0-3.5 cm Ao Asc: 3.10 2.1-3.4 cm Pulmonary Valve PV Pk Hieu: 0.85 Peak PV Grad: 3.00 Updated in Other Vendor System with Status of Final Brady Newton MD electronically signed on 07/03/2024 12:16:43 PM with status of Final
[2024-07-03] MEDS: Albuterol/Iprat 2.5/0.5MG 3 ML AMPUL.NEB INHALE (07:15)
[2024-07-03] MEDS: Norepinephrine Bitartrate/D5W 8 MG/250 ML PLAST..BAG 66.98 MG IVCONT ×2 (07:55→15:14)
[2024-07-03] MEDS: Amiodarone HCL 200 MG TABLET PO (08:11)
[2024-07-03] MEDS: Potassium Chloride ER 20 MEQ TAB.ER.PRT 40 MEQ PO (08:11)
[2024-07-03 08:24] LABS: Glucose, Whole Blood 145 mg/dL (60-115)
[2024-07-03] MEDS: Chlorothiazide Sodium 500 MG VIAL 1000 MG IVPUSH (10:17)
[2024-07-03] MEDS: DOBUTamine HCL/D5W 500 MG/250 ML IV.SOLN 6.49 MG IVCONT (10:25)
[2024-07-03 11:13] LABS: Glucose, Whole Blood 187 mg/dL (60-115)
[2024-07-03] MEDS: Insulin Lispro 100 UNIT/ML 3 ML VIAL SUBCUT (11:32)
[2024-07-03] MEDS: Norepinephrine Bitartrate/D5W 8 MG/250 ML PLAST..BAG 63.63 MG IVCONT (11:33)
[2024-07-03] MEDS: hydrOXYzine HCL 50 MG TABLET PO (11:33)
--- NOTE | 2024-07-03 11:56 | P.CONCA_ITS ---
History of Present Illness History of Present Illness Date of Service: 07/03/24 Requesting physician: Jose Antonio Kwon Consult reason: other (Advanced decompensated congestive heart failure) Chief complaint: Cardiorenal Syndrome/Anasarca Narrative: I was consulted to see Eder in cardiology consultation today as he presented with significant weight along with worsening renal function in the setting of known severe biventricular systolic dysfunction. When he came to the emergency room initially he was normotensive but subsequently quickly became hypotensive and was started on vasopressor therapy with Levophed. He was then started on IV diuretics in the ICU but with poor urine output. His renal function compared to baseline the significantly elevated. He was then given Diuril in the ICU and then was also started on dobutamine drip at 2.5 micrograms/kg per minute. He is in the last hour and half has had greater than 100 cc an hour urine output with a like her urine. He appears significantly short of breath. Reviewing his chart, he was prior history of significant advanced heart failure and his remote heart failure monitoring system has noted elevated OptiVol findings consistent with elevated filling pressures for few months now. He was maintained on near 40 mg of Lasix although due to his prior history of YUMIKO. He said about 4 5 months ago he was admitted with decompensated congestive heart failure was diuresed about 30 lb. He was discharged with a dry weight about 160 lb and was feeling great and being functional. He subsequently was admitted what appears to be with YUMIKO in his Lasix was then changed to 40 mg daily. Since then he seems he has gained weight instead was chronic around 180 lb and then over the last week has gained about in the 7-8 lb and at home he said he measured at 190 lb. He then came to the hospital because he was not able to breathe. He has noticed abdominal distention bilateral leg edema bilateral hand and arms edema and significantly worsening shortness of breath. He said he is not doing very well and therefore came to the emergency room. He is currently still short of breath. Yesterday was noted to have rapid heart rate consistent with AFib. He was prior history of atrial fibrillation maintained on amiodarone therapy. He has pretty low-voltage QRS complexes on the EKG. He has history of chronic kidney disease and therefore was not on any renin angiotensin antagonist. He also does not seem to be on any beta-blockers at home. Review of Systems 2 Constitutional: Constitutional: Reports fatigue, Reports poor appetite, Reports weakness and Reports weight gain Eyes: Eyes: Reports no additional eye complaints Cardiovascular: Cardiovascular: Reports Abdominal Distension, Denies rapid heart rate, Reports leg edema, Denies lightheadedness, Denies Loss of Consciousness, Reports dyspnea, Reports dyspnea on exertion and Reports orthopnea Respiratory: Respiratory: Reports cough, Reports dyspnea and Reports dyspnea on exertion Gastrointestinal: Gastrointestinal: Reports no additional gastrointestinal complaints Musculoskeletal: Musculoskeletal: Reports no additional musculoskeletal complaints Integumentary/Breasts: Skin/Breast: Reports system reviewed and no additional complaints, except as docu Neurologic: Reports system reviewed and no additional complaints, except as documented and Reports weakness Psychiatric: Psychiatric: Reports no additional psychiatric complaints Endocrine: Endocrine: Reports fatigue PMFSH Past Medical History Medical History CHF (congestive heart failure) Paroxysmal atrial fibrillation Diabetes type 2, controlled Chronic a-fib Atherosclerotic cardiovascular disease Fatigue High triglycerides Erectile dysfunction Typical atrial flutter Nonischemic cardiomyopathy Hearing loss COPD (chronic obstructive pulmonary disease) Atrial fibrillation Elevated blood sugar Asthma Hyperlipidemia HTN (hypertension) Stroke Family History Family History Father Unknown family medical history Mother Unknown family medical history Surgical History Surgical History Presence of single chamber implantable cardioverter-defibrillator (ICD) History of appendectomy History of tonsillectomy Social History Social History Household Members: None Housing: House Are you a primary acute care assistant to a significant other at home: No Do you presently have visiting nurse or other home services: Yes Alcohol intake: current Alcohol intake frequency: holidays/special occasions only Alcohol type: wine Patient Tobacco Use Status: Current someday Tobacco user Tobacco use type: Cigarette Cigarettes Per Day: 1 Years Smoked: 70 +/- Smoked in Last 30 Days: Yes e-Cigarette/Vaping Use: Never Used Patient Interested in Nicotine Replacement: No Patient Given Instructions on How to Stop Smoking: No Second Hand Smoke Exposure: No Use of substances other than those prescribed or required for medical reasons: No Currently Displaying Signs/Symptoms of Drug Intoxication Withdrawal: No Have you been hit, kicked, punched, or otherwise hurt by someone within the past year? If so, by whom?: No Do you feel safe in your current relationship?: Yes Is there a partner from a previous relationship who is making you feel unsafe now?: No Are you made to feel afraid or neglected: No Advance Directives: Yes Advance Directives on File: Yes Advance Directives Date on File: 08/18/20 Do you have a plan to hurt others: No Plan Recently lost weight without trying: No How much weight loss: Not applicable Eating poorly because of decreased appetite: No Nutrition screen score: 0 Nutrition Risks: No Nutritional Risk Poor oral hygiene: No service: No Current occupational status: retired Cognitive needs: No Hearing needs: No Vision needs: No Meds Allergies Allergy/AdvReac Type Severity Reaction Status Date / Time lisinopril Allergy Intermediate Rash Verified 07/02/24 18:11 Active Medications: Current Medications Albuterol Sulfate (Albuterol Sulfate (0.083%) 2.5 Mg/3 Ml Vial.Neb) 2.5 mg INHALE Q4H PRN PRN Reason: Wheezing Albuterol/Ipratropium (Albuterol/Iprat 2.5/0.5mg 3 Ml Ampul.Neb) 3 ml INHALE RQ6H WHILE AWAKE [facility] Last Admin: 07/03/24 07:15 Dose: 3 ml Amiodarone HCl (Amiodarone Hcl 200 Mg Tablet) 200 mg PO DAILY [facility] Last Admin: 07/03/24 08:11 Dose: 200 mg Atorvastatin Calcium (Atorvastatin Calcium 40 Mg Tablet) 40 mg PO BEDTIME [facility] Last Admin: 07/02/24 22:58 Dose: Not Given Glucose (Glucose Gel 15 Gm Gel..Gram.) 15 gm PO Q15M PRN; Protocol PRN Reason: per Hypoglycemia Standing Ord. Hydroxyzine HCl (Hydroxyzine Hcl 50 Mg Tablet) 50 mg PO Q6H PRN PRN Reason: Anxiety Last Admin: 07/03/24 11:33 Dose: 50 mg Norepinephrine Bitartrate (Levophed) 8 mg in 250 mls @ 0 mls/hr IVCONT .Q0M [facility]; Protocol Last Titration: 07/03/24 11:48 Dose: 0.34 mcg/kg/min, 56.93 mls/hr Bumetanide 25 mg/ IV (Miscellaneous Supplies) 100 mls @ 4 mls/hr IVCONT .Q24H [facility] Last Infusion: 07/03/24 05:23 Dose: 1 mg/hr, 4 mls/hr Dextrose (D10) 250 mls @ 750 mls/hr IV Q15M PRN; Protocol PRN Reason: per Hypoglycemia Standing Ord. Dobutamine HCl/Dextrose (Dobutrex) 500 mg in 250 mls @ 0 mls/hr IVCONT .Q0M [facility]; Protocol Last Admin: 07/03/24 10:25 Dose: 2.5 mcg/kg/min, 6.49 mls/hr Insulin Human Lispro (Insulin Lispro 100 Unit/Ml 3 Ml Vial) 0 unit SUBCUT QIDACHS [facility]; Protocol Last Admin: 07/03/24 11:32 Dose: 2 unit Omeprazole (Omeprazole 40 Mg Capsule.Dr) 40 mg PO DAILY@0630 [facility] Last Admin: 07/03/24 05:33 Dose: 40 mg Potassium Chloride (Potassium Chloride Er 20 Meq Tab.Er.Prt) 40 meq PO DAILY [facility] Last Admin: 07/03/24 08:11 Dose: 40 meq Warfarin Sodium (Warfarin Sodium 1 Mg Tablet) 1 mg PO DAILY@1800 [facility] Home Medications ?Medication ?Instructions ?Recorded ?Confirmed ?Last Taken ?Type trazodone 100 mg tablet 100 mg PO BEDTIME PRN Sleep 02/22/24 07/02/24 Unknown History diphenhydramine HCl 25 mg tablet 25 mg PO BID PRN Itching 04/26/24 07/02/24 Unknown History (Benadryl Allergy) atorvastatin 40 mg tablet 40 mg PO BEDTIME 06/20/24 07/02/24 07/01/24 History fluticasone furoate 100 1 inh inhalation DAILY 06/20/24 07/02/24 07/02/24 History mcg-vilanterol 25 mcg/dose inhalation powder (Breo Ellipta) warfarin 1 mg tablet 1 mg PO DAILY@1800 06/20/24 07/02/24 07/02/24 History furosemide 20 mg tablet 40 mg PO DAILY 07/02/24 07/02/24 07/02/24 History Physical Exam 2 Vital Signs: Vital Signs: Last Vital Signs Temp 97.8 F 07/03/24 08:00 Pulse 104 H 07/03/24 11:48 Resp 23 H 07/03/24 11:00 BP 99/69 07/03/24 11:48 Pulse Ox 94 07/03/24 11:00 O2 Del Method Room Air 07/03/24 11:00 O2 Flow Rate 2 07/02/24 20:47 BMI result Body Mass Index 30.8 Const: General: cooperative, alert, awake and in distress moderate, severe and respiratory Nutritional Appearance: average body habitus O rientation/consciousness: patient oriented x3 HEENT: Head: Yes normocephalic and Yes atraumatic Neck: Neck: Yes trachea midline, Yes supple and Yes JVD Resp: Effort & Inspection: normal respiratory effort and respiratory distress Auscultation: crackles Cardio: Jugular venous distension: JVD Rate: tachycardic Rhythm: regular rhythm Heart sounds: S1 normal heart sound present, S2 normal heart sound present, no click, Gallop heart sound present S3 gallop, no murmurs and no rubs GI: Inspection: Yes distended Auscultation: normal bowel sounds Skin: General skin exam: no rashes or lesions noted Neuro: General: patient oriented x3 and no focal motor deficits Extrem: General: No clubbing, No cyanosis and Yes edema Psych: Affect: Anxious affect present Objective Labs and Meds 07/03/24 04:26 07/03/24 04:26 Lab results: Laboratory Results - last 24 hr 07/02/24 07/02/24 07/02/24 18:59 19:18 19:48 WBC 5.6 RBC 3.85 L Hgb 11.8 L Hct 35.4 L MCV 91.9 MCH 30.6 MCHC 33.3 RDW 17.7 H Plt Count 169 D MPV 12.2 Immature Gran % (Auto) 0.4 Neut % (Auto) 80.5 H Lymph % (Auto) 7.3 L Jenkins % (Auto) 11.2 H Eos % (Auto) 0.2 Baso % (Auto) 0.4 Lymph # (Auto) 0.4 L Jenkins # (Auto) 0.6 Eos # (Auto) 0.0 Baso # (Auto) 0.0 Abs Immat Gran (auto) 0.02 Absolute Neuts (auto) 4.5 Absolute Nucleated RBC 0.000 Nucleated RBC % (auto) 0.0 PT 32.5 H INR 2.8 H APTT 42.9 H Sodium 138 Potassium 4.8 Chloride 106 Carbon Dioxide 24 Anion Gap 13 BUN 21 H Creatinine 2.49 H Estim Creat Clear Calc 23.5 Estimated GFR 25 POC Glucose Random Glucose 95 Calcium 9.2 D Phosphorus Magnesium Total Bilirubin 1.4 H AST 39 H ALT 26 Alkaline Phosphatase 361 H Troponin I High Sens 14.9 D B-Natriuretic Peptide 3794 H Total Protein 7.0 Albumin 3.3 L Lipase 36 Urine Color Urine Appearance Urine pH Ur Specific [place] Urine Protein Urine Glucose (UA) Urine Ketones Urine Blood Urine Nitrite Ur Leukocyte Esterase Urine RBC Urine WBC Ur Squamous Epith Cells Calcium Oxalate Crystal Urine Bacteria Epithelial Casts Hyaline Casts Granular Casts Influenza Type A (PCR) NEGATIVE Influenza Type B (PCR) NEGATIVE RSV RNA Qual (PCR) NEGATIVE SARS-CoV-2 RNA (RT-PCR) NEGATIVE 07/02/24 07/02/24 07/03/24 23:18 23:23 04:26 WBC 7.5 RBC 3.77 L Hgb 11.0 L Hct 34.1 L MCV 90.5 MCH 29.2 MCHC 32.3 RDW 17.6 H Plt Count 167 MPV 11.8 Immature Gran % (Auto) 0.3 Neut % (Auto) 81.5 H Lymph % (Auto) 6.9 L Jenkins % (Auto) 11.0 Eos % (Auto) 0.0 Baso % (Auto) 0.3 Lymph # (Auto) 0.5 L Jenkins # (Auto) 0.8 Eos # (Auto) 0.0 Baso # (Auto) 0.0 Abs Immat Gran (auto) 0.02 Absolute Neuts (auto) 6.1 Absolute Nucleated RBC 0.000 Nucleated RBC % (auto) 0.0 PT 38.3 H INR 3.3 H APTT Sodium 139 Potassium 4.9 Chloride 106 Carbon Dioxide 19 L Anion Gap 19 BUN 21 H Creatinine 2.51 H Estim Creat Clear Calc 23.3 Estimated GFR 25 POC Glucose 117 H Random Glucose 134 H Calcium 9.1 Phosphorus 3.8 Magnesium 2.4 Total Bilirubin 1.9 H AST 33 ALT 16 Alkaline Phosphatase 313 H Troponin I High Sens B-Natriuretic Peptide Total Protein 7.1 Albumin 3.8 Lipase Urine Color Yellow Urine Appearance Cloudy Urine pH 5.0 Ur Specific [place] 1.015 Urine Protein 30 (1+) H Urine Glucose (UA) Negative Urine Ketones Negative Urine Blood Small (1+) H Urine Nitrite Negative Ur Leukocyte Esterase Negative Urine RBC 3-5 H Urine WBC 0-5 Ur Squamous Epith Cells 6-10 Calcium Oxalate Crystal Present Urine Bacteria None Seen Epithelial Casts Present Hyaline Casts 11-20 Granular Casts Present Influenza Type A (PCR) Influenza Type B (PCR) RSV RNA Qual (PCR) SARS-CoV-2 RNA (RT-PCR) 07/03/24 07/03/24 08:21 11:01 WBC RBC Hgb Hct MCV MCH MCHC RDW Plt Count MPV Immature Gran % (Auto) Neut % (Auto) Lymph % (Auto) Jenkins % (Auto) Eos % (Auto) Baso % (Auto) Lymph # (Auto) Jenkins # (Auto) Eos # (Auto) Baso # (Auto) Abs Immat Gran (auto) Absolute Neuts (auto) Absolute Nucleated RBC Nucleated RBC % (auto) PT INR APTT Sodium Potassium Chloride Carbon Dioxide Anion Gap BUN Creatinine Estim Creat Clear Calc Estimated GFR POC Glucose 145 H 187 H Random Glucose Calcium Phosphorus Magnesium Total Bilirubin AST ALT Alkaline Phosphatase Troponin I High Sens B-Natriuretic Peptide Total Protein Albumin Lipase Urine Color Urine Appearance Urine pH Ur Specific [place] Urine Protein Urine Glucose (UA) Urine Ketones Urine Blood Urine Nitrite Ur Leukocyte Esterase Urine RBC Urine WBC Ur Squamous Epith Cells Calcium Oxalate Crystal Urine Bacteria Epithelial Casts Hyaline Casts Granular Casts Influenza Type A (PCR) Influenza Type B (PCR) RSV RNA Qual (PCR) SARS-CoV-2 RNA (RT-PCR) Assessment and Plan (1) Acute exacerbation of chronic heart failure: Status: Acute Acute and advanced decompensated congestive heart failure with hypotension as well as worsening renal function in this elderly gentleman is most likely due to continue fluid gain and now final significant fluid gain over the last week causing him to decompensate with lower forward stroke volume as well as significant renal congestion causing worsening renal function. Clinically he is markedly fluid overloaded and in significant distress. His urine output has picked up since administration of Diuril as well as dobutamine infusion. I would gradually reduce his Levophed infusion to reduce afterload and gradually uptitrate his dobutamine from 2.5-5 micrograms/kg per minute for better inotropic effect. Continue aggressive monitoring of his output. Continue Bumex drip. If his urine output reduce his, will need more diuretic dose although may also need more advanced support devices. This was discussed with the patient and at that point time he will require transfer to [facility]. Will discuss the case with [facility] CCU attending to make him aware. For now hold all other medications except for amiodarone to maintain rhythm. Continue to hold Jardiance. Continue warfarin therapy. Overall prognosis is guarded given multiple comorbidities including advanced age, chronic kidney disease, underlying history of atrial fibrillation with advanced biventricular systolic dysfunction. Will follow with you. Greater than 40 minutes was spent in managing his complex care. Procedures Date of Service Date of Service: 07/03/24
--- NOTE | 2024-07-03 14:40 | P.DS_ITS ---
DS: Providers Provider Date of Service: 07/03/24 Date of admission: 07/02/24 21:13 Date of discharge: 07/03/24 Primary care physician: MEHRAN TuttlePDieter Consults: 07/03/24 08:00 Consult to Nephrology Routine Consulting Provider: [facility] Sumeet Deshpande Reason for consultation: cardiorenal syndrome Has provider been notified: No 07/03/24 10:01 Consult to Cardiology Routine Consulting Provider: [facility] Reason for consultation: Heart failure Has provider been notified: Yes 07/03/24 10:04 Consult to Nephrology Routine Consulting Provider: [facility] Reason for consultation: cardiorenal syndrome Has provider been notified: No DS: Transfer Hospital Acceptance Reason for Transfer: Advanced heart failure evaluation Name of Facility: [facility] Accepting Provider: Dr. Orlando DS: Diagnosis Discharge Diagnosis (1) Acute exacerbation of chronic heart failure: Status: Acute (2) Cardiogenic shock: Status: Acute (3) Cardiorenal syndrome: Status: Acute DS: Summary Hospital Course Hospital Course: 84-year-old gentleman with underlying history of AFib on anticoagulation, nonischemic cardiomyopathy with EF of 25-30%, grade 3 diastolic dysfunction, and biatrial dilatation, status post AICD admitted on 07/02/2024 with worsening edema and hypotension. On ER evaluation patient with acute kidney injury and requiring pressor support. Patient started pressor support and diuretic drip and admitted to the intensive care unit. Patient with poor response to diuretic Bumex drip/Diuril and inotropic support with Levophed/dobutamine, evaluated by Cardiology service, thereafter advanced heart failure evaluation transfer requested to [facility] and granted. Status at Discharge Functional status at discharge: independent ambulation Time Attestation Total time managing care of this patient today: 90 mintues. Discharge Coordination Time (in mins): 30 Quality: Safe Use of Opioids Does Pt have an Active Cancer Diagnosis on the Problem List?: No Quality: Stroke Does the patient have a stroke diagnosis?: No Physical Exam Vital Signs: Vital Signs: Last Vital Signs Temp 97.6 F 07/03/24 12:00 Pulse 107 H 07/03/24 14:23 Resp 22 H 07/03/24 14:00 BP 101/68 07/03/24 14:23 Pulse Ox 94 07/03/24 14:00 O2 Del Method Room Air 07/03/24 14:00 O2 Flow Rate 2 07/02/24 20:47 BMI result Body Mass Index 30.8 Const: General: no acute distress, alert and awake Nutritional Appearance: Edematous Eyes: Sclerae: sclerae normal EOM: EOMs intact bilaterally Neck: Neck: Yes no lymphadenopathy, Yes trachea midline and Yes supple Resp: Effort & Inspection: normal respiratory effort and no respiratory distress Auscultation: crackles bilateral Cardio: Rate: tachycardic Rhythm: abnormal rhythm irregularly irregular Heart sounds: no gallops, no murmurs and no rubs GI: Palpation (GI): Soft to palpation and Other GI palpation findings present ( Nontender) Auscultation: normal bowel sounds Extrem: General: No clubbing, No cyanosis and Yes edema (2+ bilateral) DS: Data Data Completed and Pending Labs on day of discharge: Laboratory Results - last 24 hr 07/02/24 07/02/24 07/02/24 18:59 19:18 19:48 WBC 5.6 RBC 3.85 L Hgb 11.8 L Hct 35.4 L MCV 91.9 MCH 30.6 MCHC 33.3 RDW 17.7 H Plt Count 169 D MPV 12.2 Immature Gran % (Auto) 0.4 Neut % (Auto) 80.5 H Lymph % (Auto) 7.3 L [place] % (Auto) 11.2 H Eos % (Auto) 0.2 Baso % (Auto) 0.4 Lymph # (Auto) 0.4 L [place] # (Auto) 0.6 Eos # (Auto) 0.0 Baso # (Auto) 0.0 Abs Immat Gran (auto) 0.02 Absolute Neuts (auto) 4.5 Absolute Nucleated RBC 0.000 Nucleated RBC % (auto) 0.0 PT 32.5 H INR 2.8 H APTT 42.9 H Sodium 138 Potassium 4.8 Chloride 106 Carbon Dioxide 24 Anion Gap 13 BUN 21 H Creatinine 2.49 H Estim Creat Clear Calc 23.5 Estimated GFR 25 POC Glucose Random Glucose 95 Calcium 9.2 D Phosphorus Magnesium Total Bilirubin 1.4 H AST 39 H ALT 26 Alkaline Phosphatase 361 H Troponin I High Sens 14.9 D B-Natriuretic Peptide 3794 H Total Protein 7.0 Albumin 3.3 L Lipase 36 Urine Color Urine Appearance Urine pH Ur Specific [place] Urine Protein Urine Glucose (UA) Urine Ketones Urine Blood Urine Nitrite Ur Leukocyte Esterase Urine RBC Urine WBC Ur Squamous Epith Cells Calcium Oxalate Crystal Urine Bacteria Epithelial Casts Hyaline Casts Granular Casts Influenza Type A (PCR) NEGATIVE Influenza Type B (PCR) NEGATIVE RSV RNA Qual (PCR) NEGATIVE SARS-CoV-2 RNA (RT-PCR) NEGATIVE 07/02/24 07/02/24 07/03/24 23:18 23:23 04:26 WBC 7.5 RBC 3.77 L Hgb 11.0 L Hct 34.1 L MCV 90.5 MCH 29.2 MCHC 32.3 RDW 17.6 H Plt Count 167 MPV 11.8 Immature Gran % (Auto) 0.3 Neut % (Auto) 81.5 H Lymph % (Auto) 6.9 L [place] % (Auto) 11.0 Eos % (Auto) 0.0 Baso % (Auto) 0.3 Lymph # (Auto) 0.5 L [place] # (Auto) 0.8 Eos # (Auto) 0.0 Baso # (Auto) 0.0 Abs Immat Gran (auto) 0.02 Absolute Neuts (auto) 6.1 Absolute Nucleated RBC 0.000 Nucleated RBC % (auto) 0.0 PT 38.3 H INR 3.3 H APTT Sodium 139 Potassium 4.9 Chloride 106 Carbon Dioxide 19 L Anion Gap 19 BUN 21 H Creatinine 2.51 H Estim Creat Clear Calc 23.3 Estimated GFR 25 POC Glucose 117 H Random Glucose 134 H Calcium 9.1 Phosphorus 3.8 Magnesium 2.4 Total Bilirubin 1.9 H AST 33 ALT 16 Alkaline Phosphatase 313 H Troponin I High Sens B-Natriuretic Peptide Total Protein 7.1 Albumin 3.8 Lipase Urine Color Yellow Urine Appearance Cloudy Urine pH 5.0 Ur Specific [place] 1.015 Urine Protein 30 (1+) H Urine Glucose (UA) Negative Urine Ketones Negative Urine Blood Small (1+) H Urine Nitrite Negative Ur Leukocyte Esterase Negative Urine RBC 3-5 H Urine WBC 0-5 Ur Squamous Epith Cells 6-10 Calcium Oxalate Crystal Present Urine Bacteria None Seen Epithelial Casts Present Hyaline Casts 11-20 Granular Casts Present Influenza Type A (PCR) Influenza Type B (PCR) RSV RNA Qual (PCR) SARS-CoV-2 RNA (RT-PCR) 07/03/24 07/03/24 08:21 11:01 WBC RBC Hgb Hct MCV MCH MCHC RDW Plt Count MPV Immature Gran % (Auto) Neut % (Auto) Lymph % (Auto) [place] % (Auto) Eos % (Auto) Baso % (Auto) Lymph # (Auto) [place] # (Auto) Eos # (Auto) Baso # (Auto) Abs Immat Gran (auto) Absolute Neuts (auto) Absolute Nucleated RBC Nucleated RBC % (auto) PT INR APTT Sodium Potassium Chloride Carbon Dioxide Anion Gap BUN Creatinine Estim Creat Clear Calc Estimated GFR POC Glucose 145 H 187 H Random Glucose Calcium Phosphorus Magnesium Total Bilirubin AST ALT Alkaline Phosphatase Troponin I High Sens B-Natriuretic Peptide Total Protein Albumin Lipase Urine Color Urine Appearance Urine pH Ur Specific [place] Urine Protein Urine Glucose (UA) Urine Ketones Urine Blood Urine Nitrite Ur Leukocyte Esterase Urine RBC Urine WBC Ur Squamous Epith Cells Calcium Oxalate Crystal Urine Bacteria Epithelial Casts Hyaline Casts Granular Casts Influenza Type A (PCR) Influenza Type B (PCR) RSV RNA Qual (PCR) SARS-CoV-2 RNA (RT-PCR) Discharge Plan Discharge Anticipated Discharge Date/Time: 07/03/24 14:51 Patient Disposition: [facility] Discharge Diagnosis: Advanced heart failure Referrals: Dagoberto Childs, TIRE INSPECTOR- [Primary Care Provider] - 1 Week Discharge Medications: Continued (DME) blood-glucose meter [OneTouch Ultra2 Meter] Misc See Rx Instructions .Route Qty: 1 0RF Rx Instructions: Use to check fasting blood sugar and a random sugar daily (DME) OneTouch Ultra Test Strip See Rx Instructions .Route Qty: 100 5RF Rx Instructions: Use to check fasting blood sugar and a random sugar daily (DME) lancets [Onetouch Delica Safety Lancet] 30 gauge misc See Rx Instructions .Route Qty: 100 5RF Rx Instructions: Use to check fasting blood sugar and a random sugar daily albuterol sulfate 90 mcg/actuation HFA aerosol inhaler 2 puff inhalation Q6H PRN (Reason: Shortness Of Breath) 30 Days Qty: 8.5 3RF amiodarone 200 mg tablet 200 mg PO DAILY Qty: 90 3RF hydralazine 10 mg tablet 10 mg PO BID Qty: 60 3RF trazodone 100 mg tablet 100 mg PO BEDTIME PRN (Reason: Sleep) Jardiance 10 mg Tablet 10 mg PO DAILY Qty: 90 0RF atorvastatin 40 mg tablet 40 mg PO BEDTIME warfarin 1 mg tablet 1 mg PO DAILY@1800 fluticasone furoate-vilanterol [Breo Ellipta] 100-25 mcg/dose blister with device 1 inh inhalation DAILY potassium chloride 20 mEq tablet extended release 20 meq PO BID Qty: 60 0RF diphenhydramine HCl [Benadryl Allergy] 25 mg Tablet 25 mg PO BID PRN (Reason: Itching) furosemide 20 mg tablet 40 mg PO DAILY Discharge Orders: Discharge Order (Routine); Ordered 07/03/24 Ordered By: Jose Antonio Kwon Activity on Discharge: Bedrest Stand Alone Forms: Patient Portal Discharge page Print Language: Danish Care Plan Goals: Further evaluation of underlying advanced heart failure Health Concerns: Advanced heart failure Plan of Treatment: Further evaluation of underlying advanced heart failure Assessment: Advanced heart failure with cardiogenic shock and cardiorenal syndrome.
--- NOTE | 2024-07-03 14:55 | PM.CNNEP ---
History of Present Illness Reason for Consult Consult date: 07/03/24 Reason for consult: CKD Chief Complaint Chief complaint: Cardiorenal Syndrome/Anasarca History of Present Illness Narrative: 84-year-old male with underlying history of atrial fibrillation on Coumadin, ACS, nonischemic cardiomyopathy, COPD, AICD, asthma, CVA, hypertension, hyperlipidemia among multiple others who was recently discharged from this hospital on 06/21/2024 after having received 3 automatic shocks with his defibrillator due to VFib, the time the patient was found to have low potassium due to over diuresis.? Potassium was replaced, patient was discharged home. ?His last echo showed an ejection fraction of 25-30% with grade 3 diastolic dysfunction, severe right ventricular dilation with decreased systolic function, severe dilation of both atriums, mild mitral and tricuspid regurgitation and moderately elevated right ventricular systolic pressure. Currently on Bumex drip. He has been transferred to [facility] for further management Review of Systems Review of Systems Yes Unobtainable due to mental condition PMFSH Past Medical History Medical History CHF (congestive heart failure) Paroxysmal atrial fibrillation Diabetes type 2, controlled Chronic a-fib Atherosclerotic cardiovascular disease Fatigue High triglycerides Erectile dysfunction Typical atrial flutter Nonischemic cardiomyopathy Hearing loss COPD (chronic obstructive pulmonary disease) Atrial fibrillation Elevated blood sugar Asthma Hyperlipidemia HTN (hypertension) Stroke Family History Family History Father Unknown family medical history Mother Unknown family medical history Surgical History Surgical History Presence of single chamber implantable cardioverter-defibrillator (ICD) History of appendectomy History of tonsillectomy Social History Social History Household Members: None Housing: House Are you a primary career placement services counselor to a significant other at home: No Do you presently have visiting nurse or other home services: Yes Alcohol intake: current Alcohol intake frequency: holidays/special occasions only Alcohol type: wine Patient Tobacco Use Status: Current someday Tobacco user Tobacco use type: Cigarette Cigarettes Per Day: 1 Years Smoked: 70 +/- Smoked in Last 30 Days: Yes e-Cigarette/Vaping Use: Never Used Patient Interested in Nicotine Replacement: No Patient Given Instructions on How to Stop Smoking: No Second Hand Smoke Exposure: No Use of substances other than those prescribed or required for medical reasons: No Currently Displaying Signs/Symptoms of Drug Intoxication Withdrawal: No Have you been hit, kicked, punched, or otherwise hurt by someone within the past year? If so, by whom?: No Do you feel safe in your current relationship?: Yes Is there a partner from a previous relationship who is making you feel unsafe now?: No Are you made to feel afraid or neglected: No Advance Directives: Yes Advance Directives on File: Yes Advance Directives Date on File: 08/18/20 Do you have a plan to hurt others: No Plan Recently lost weight without trying: No How much weight loss: Not applicable Eating poorly because of decreased appetite: No Nutrition screen score: 0 Nutrition Risks: No Nutritional Risk Poor oral hygiene: No service: No Current occupational status: retired Cognitive needs: No Hearing needs: No Vision needs: No Meds Allergies Allergy/AdvReac Type Severity Reaction Status Date / Time lisinopril Allergy Intermediate Rash Verified 07/02/24 18:11 Active Medications: Current Medications Albuterol Sulfate (Albuterol Sulfate (0.083%) 2.5 Mg/3 Ml Vial.Neb) 2.5 mg INHALE Q4H PRN PRN Reason: Wheezing Albuterol/Ipratropium (Albuterol/Iprat 2.5/0.5mg 3 Ml Ampul.Neb) 3 ml INHALE RQ6H WHILE AWAKE [facility] Last Admin: 07/03/24 07:15 Dose: 3 ml Amiodarone HCl (Amiodarone Hcl 200 Mg Tablet) 200 mg PO DAILY [facility] Last Admin: 07/03/24 08:11 Dose: 200 mg Atorvastatin Calcium (Atorvastatin Calcium 40 Mg Tablet) 40 mg PO BEDTIME [facility] [place] Last Admin: 07/02/24 22:58 Dose: Not Given Glucose (Glucose Gel 15 Gm Gel..Gram.) 15 gm PO Q15M PRN; Protocol PRN Reason: per Hypoglycemia Standing Ord. Hydroxyzine HCl (Hydroxyzine Hcl 50 Mg Tablet) 50 mg PO Q6H PRN PRN Reason: Anxiety Last Admin: 07/03/24 11:33 Dose: 50 mg Norepinephrine Bitartrate (Levophed) 8 mg in 250 mls @ 0 mls/hr IVCONT .Q0M [facility]; Protocol Last Titration: 07/03/24 13:16 Dose: 0.4 mcg/kg/min, 66.98 mls/hr Bumetanide 25 mg/ IV (Miscellaneous Supplies) 100 mls @ 4 mls/hr IVCONT .Q24H [facility] [place] Last Infusion: 07/03/24 05:23 Dose: 1 mg/hr, 4 mls/hr Dextrose (D10) 250 mls @ 750 mls/hr IV Q15M PRN; Protocol PRN Reason: per Hypoglycemia Standing Ord. Dobutamine HCl/Dextrose (Dobutrex) 500 mg in 250 mls @ 0 mls/hr IVCONT .Q0M [facility]; Protocol Last Titration: 07/03/24 14:23 Dose: 5 mcg/kg/min, 12.98 mls/hr Insulin Human Lispro (Insulin Lispro 100 Unit/Ml 3 Ml Vial) 0 unit SUBCUT QIDACHS [facility]; Protocol Last Admin: 07/03/24 11:32 Dose: 2 unit Omeprazole (Omeprazole 40 Mg Capsule.Dr) 40 mg PO DAILY@0630 [facility] [place] Last Admin: 07/03/24 05:33 Dose: 40 mg Potassium Chloride (Potassium Chloride Er 20 Meq Tab.Er.Prt) 40 meq PO DAILY [facility] [place] Last Admin: 07/03/24 08:11 Dose: 40 meq Warfarin Sodium (Warfarin Sodium 1 Mg Tablet) 1 mg PO DAILY@1800 [facility] Home Medications ?Medication ?Instructions ?Recorded ?Confirmed ?Last Taken ?Type trazodone 100 mg tablet 100 mg PO BEDTIME PRN Sleep 02/22/24 07/02/24 Unknown History diphenhydramine HCl 25 mg tablet 25 mg PO BID PRN Itching 04/26/24 07/02/24 Unknown History (Benadryl Allergy) atorvastatin 40 mg tablet 40 mg PO BEDTIME 06/20/24 07/02/24 07/01/24 History fluticasone furoate 100 1 inh inhalation DAILY 06/20/24 07/02/24 07/02/24 History mcg-vilanterol 25 mcg/dose inhalation powder (Breo Ellipta) warfarin 1 mg tablet 1 mg PO DAILY@1800 06/20/24 07/02/24 07/02/24 History furosemide 20 mg tablet 40 mg PO DAILY 07/02/24 07/02/2425 History Physical Exam Vital Signs: Last Vital Signs Temp 97.6 F 07/03/24 12:00 Pulse 107 H 07/03/24 14:23 Resp 22 H 07/03/24 14:00 BP 101/68 07/03/24 14:23 Pulse Ox 94 07/03/24 14:00 O2 Del Method Room Air 07/03/24 14:00 O2 Flow Rate 2 07/02/24 20:47 BMI result Body Mass Index 30.8 Results Lab Results 07/03/24 04:26 07/03/24 04:26 Lab results: Chemistry 07/02/24 07/03/24 19:48 04:26 Sodium 138 139 Potassium 4.8 4.9 Carbon Dioxide 24 19 L BUN 21 H 21 H Creatinine 2.49 H 2.51 H Calcium 9.2 D 9.1 Phosphorus 3.8 Hematology 07/02/24 07/03/24 18:59 04:26 WBC 5.6 7.5 Hgb 11.8 L 11.0 L Plt Count 169 D 167 Urinalysis 07/02/24 23:23 Urine Color Yellow Urine Appearance Cloudy Urine pH 5.0 Ur Specific [place] 1.015 Urine Protein 30 (1+) H Urine Glucose (UA) Negative Urine Ketones Negative Urine Blood Small (1+) H Urine Nitrite Negative Ur Leukocyte Esterase Negative Urine RBC 3-5 H Urine WBC 0-5 Ur Squamous Epith Cells 6-10 Hyaline Casts 11-20 Assessment and Plan (1) Acute exacerbation of chronic heart failure: Status: Acute (2) CKD (chronic kidney disease) stage 4, GFR 15-29 ml/min: Status: Acute Plan YUMIKO superimposed on CKD in the setting of cardiorenal syndrome. Currently on diuretic drip He has been transferred to [facility] for further management. Discussed with ICU team and agree with the above plan. Procedures Date of Service Date of Service: 07/03/24
--- NOTE | 2024-07-03 14:56 | MHC.CM.PN ---
Pt will be transferred to [facility] for cardiac intervention.
== END 2024-07-03 15:32 | disposition short-term general hospital (02) | DRG 291 ==
LOC: HO.ED 21:11 → HO.EDOVER 21:17 → HO.ICU 21:20
PROVIDERS: Admitting Provider Physician Assistant Medical; Emergency Provider Emergency Medicine Emergency Medical Services; PCP Nurse Practitioner Family; Visit Provider Physician Assistant Medical
DX: I13.0 Hypertensive heart and chronic kidney disease with heart failure and stage 1 through stage 4 chronic kidney disease, or unspecified chronic kidney disease (principal); I50.41 Acute combined systolic (congestive) and diastolic (congestive) heart failure; I50.43 Acute on chronic combined systolic (congestive) and diastolic (congestive) heart failure; N17.9 Acute kidney failure, unspecified; J44.1 Chronic obstructive pulmonary disease with (acute) exacerbation; N18.30 Chronic kidney disease, stage 3 unspecified; D63.1 Anemia in chronic kidney disease; E11.22 Type 2 diabetes mellitus with diabetic chronic kidney disease; I80.9 Phlebitis and thrombophlebitis of unspecified site; I25.10 Atherosclerotic heart disease of native coronary artery without angina pectoris; I42.8 Other cardiomyopathies; E78.5 Hyperlipidemia, unspecified; Z86.73 Personal history of transient ischemic attack (TIA), and cerebral infarction without residual deficits; Z95.810 Presence of automatic (implantable) cardiac defibrillator; F17.210 Nicotine dependence, cigarettes, uncomplicated; Z20.822 Contact with and (suspected) exposure to COVID-19; Z71.6 Tobacco abuse counseling; Z79.01 Long term (current) use of anticoagulants; Z79.51 Long term (current) use of inhaled steroids; Z79.899 Other long term (current) drug therapy
CPT/HCPCS: 0241U; 36415; 71045; 80053; 81001; 82947; 83690; 83735; 83880; 84100; 84484; 85025; 85610; 85730; 93005; 93306; 94640; 99285; C1758; J1205; J1250; J1939; J2003; P9047

== ENCOUNTER → 2024-07-02 18:39 | Outpatient (BNV) | payer MEDICARE, MEDICAID, SELFPAY | PROVIDERS: Emergency Provider Emergency Medicine Emergency Medical Services; PCP Nurse Practitioner Family; Visit Provider Radiology Diagnostic Radiology | DX: R91.8 Other nonspecific abnormal finding of lung field (principal); I51.7 Cardiomegaly; Z95.818 Presence of other cardiac implants and grafts | CPT/HCPCS: 71045 ==

== ENCOUNTER → 2024-07-02 20:24 | Outpatient (BNV) | payer MEDICARE, MEDICAID, SELFPAY | PROVIDERS: Admitting Provider Physician Assistant Medical; Emergency Provider Emergency Medicine Emergency Medical Services; PCP Nurse Practitioner Family; Visit Provider Internal Medicine Cardiovascular Disease | DX: I48.91 Unspecified atrial fibrillation (principal) | CPT/HCPCS: 93010 ==

== ENCOUNTER 2024-07-02 21:13 | Outpatient (BNV) | payer MEDICARE, MEDICAID, SELFPAY | END 2024-07-03 04:53 | PROVIDERS: Admitting Provider Physician Assistant Medical; Emergency Provider Emergency Medicine Emergency Medical Services; PCP Nurse Practitioner Family; Visit Provider Radiology Diagnostic Radiology | DX: I51.7 Cardiomegaly (principal); R91.8 Other nonspecific abnormal finding of lung field; Z95.828 Presence of other vascular implants and grafts | CPT/HCPCS: 71045 ==

== ENCOUNTER 2024-07-02 21:13 | Outpatient (BNV) | payer MEDICARE, MEDICAID, SELFPAY | END 2024-07-03 07:00 | PROVIDERS: Admitting Provider Physician Assistant Medical; Emergency Provider Emergency Medicine Emergency Medical Services; PCP Nurse Practitioner Family; Visit Provider Internal Medicine Cardiovascular Disease | DX: I50.30 Unspecified diastolic (congestive) heart failure (principal); I35.2 Nonrheumatic aortic (valve) stenosis with insufficiency; I34.0 Nonrheumatic mitral (valve) insufficiency; I36.1 Nonrheumatic tricuspid (valve) insufficiency | CPT/HCPCS: 93306 ==

== ENCOUNTER → 2024-07-02 21:13 | Outpatient (BNV) | payer MEDICARE, MEDICAID, SELFPAY | PROVIDERS: Admitting Provider Physician Assistant Medical; Emergency Provider Emergency Medicine Emergency Medical Services; PCP Nurse Practitioner Family; Visit Provider Internal Medicine Pulmonary Disease | DX: I13.10 Hypertensive heart and chronic kidney disease without heart failure, with stage 1 through stage 4 chronic kidney disease, or unspecified chronic kidney disease (principal); I50.9 Heart failure, unspecified; R57.0 Cardiogenic shock | CPT/HCPCS: 99239 ==

== ENCOUNTER → 2024-07-02 21:13 | Outpatient (BNV) | payer MEDICARE, SELFPAY | PROVIDERS: Admitting Provider Physician Assistant Medical; Emergency Provider Emergency Medicine Emergency Medical Services; PCP Nurse Practitioner Family; Visit Provider Internal Medicine Hypertension Specialist | DX: I13.0 Hypertensive heart and chronic kidney disease with heart failure and stage 1 through stage 4 chronic kidney disease, or unspecified chronic kidney disease (principal); I50.30 Unspecified diastolic (congestive) heart failure; N18.4 Chronic kidney disease, stage 4 (severe) | CPT/HCPCS: 99222 ==

== ENCOUNTER → 2024-07-02 21:13 | Outpatient (BNV) | payer MEDICARE, MEDICAID, SELFPAY | PROVIDERS: Admitting Provider Physician Assistant Medical; Emergency Provider Emergency Medicine Emergency Medical Services; PCP Nurse Practitioner Family; Visit Provider Physician Assistant Medical | DX: I13.10 Hypertensive heart and chronic kidney disease without heart failure, with stage 1 through stage 4 chronic kidney disease, or unspecified chronic kidney disease (principal); R60.1 Generalized edema | CPT/HCPCS: 36556; 99291 ==

== ENCOUNTER → 2024-07-02 21:13 | Outpatient (BNV) | payer MEDICARE, MEDICAID, SELFPAY | PROVIDERS: Admitting Provider Physician Assistant Medical; Emergency Provider Emergency Medicine Emergency Medical Services; PCP Nurse Practitioner Family; Visit Provider Internal Medicine Cardiovascular Disease | DX: I50.30 Unspecified diastolic (congestive) heart failure (principal) | CPT/HCPCS: 99223 ==